=== PATIENT | male | born 1955 ===

== ENCOUNTER 2017-07-28 20:04 | Emergency (ER) | payer MEDICAID, MEDICARE ==
[2017-07-28 20:05] VITALS: BMI 53.4
[2017-07-28 20:27] VITALS: RESP 18; TEMP 98.5
--- NOTE | 2017-07-28 20:42 | ED PDOC ---
Arrival/HPI - General Chief Complaint: Male Genitourinary Time Seen by Provider: 07/28/17 20:10 Historian: Patient - History of Present Illness Narrative History of Present Illness (Text): 07/28/17 20:42 A 61 year old male, whose past medical history includes carcinoid cancer of the digestive tract and chronic renal insufficiency, presents to the emergency department for evaluation of disconnected nephrostomy tube. Patient reports nephrostomy tube was disconnected from drainage. Patient reports this occurred tonight, but appears to be loose about a week ago when it was dressed by performance improvement manager. Patient denies any fever, abdominal pain, hematuria or any other complaints at this time. Symptom Onset: Sudden Symptom Course: Unchanged Activities at Onset: Rest Context: Home Past Medical History - Provider Review Nursing Documentation Reviewed: Yes - Infectious Disease Hx of Infectious Diseases: None - Tetanus Immunization Tetanus Immunization: Unknown - Cardiac Hx Cardiac Disorders: No - Pulmonary Hx Respiratory Disorders: No - Neurological Hx Neurological Disorder: No - HEENT Hx HEENT Disorder: No - Renal Hx Renal Disorder: Yes Other/Comment: HAS UROSTOMY - Endocrine/Metabolic Hx Endocrine Disorders: No - Hematological/Oncological Hx Blood Disorders: Yes Hx Cancer: Yes (Gastric; colon) - Integumentary Hx Dermatological Disorder: No - Musculoskeletal/Rheumatological Hx Musculoskeletal Disorders: No - Gastrointestinal Hx Colostomy: Yes Other/Comment: PEG TUBE - Genitourinary/Gynecological Hx Genitourinary Disorders: Yes Other/Comment: HAS UROSTOMY - Psychiatric Hx Psychophysiologic Disorder: No Hx Substance Use: No - Surgical History Other/Comment: COLOSTOMY, PEG TUBE, UROSTOMY - Suicidal Assessment Feels Threatened In Home Enviroment: No Family/Social History - Physician Review Nursing Documentation Reviewed: Yes Family/Social History: No Known Family HX Smoking Status: Never Smoked Hx Alcohol Use: No Hx Substance Use: No Hx Substance Use Treatment: No Allergies/Home Meds Allergies/Adverse Reactions: Allergies No Known Allergies Allergy (Verified 07/28/17 20:06) Home Medications: Home Meds Medication Instructions Recorded Confirmed Unobtainable 07/28/17 07/28/17 Review of Systems - Physician Review All systems were reviewed & negative as marked: Yes - Review of Systems Constitutional: absent: Fevers Gastrointestinal: absent: Abdominal Pain Genitourinary Male: absent: Hematuria Physical Exam Vital Signs Reviewed: Yes Vital Signs Temp Pulse Resp BP Pulse Ox 07/28/17 20:09 98.5 F 119 H 18 153/102 H 97 Temperature: Afebrile Blood Pressure: Hypertensive Pulse: Tachycardic Respiratory Rate: Normal Appearance: Positive for: Well-Appearing, Non-Toxic, Comfortable Pain Distress: None Mental Status: Positive for: Alert and Oriented X 3 - Systems Exam Head: Present: Atraumatic, Normocephalic Pupils: Present: PERRL Extroacular Muscles: Present: EOMI Conjunctiva: Present: Normal Mouth: Present: Moist Mucous Membranes Neck: Present: Normal Range of Motion Respiratory/Chest: Present: Clear to Auscultation, Good Air Exchange. No: Respiratory Distress, Accessory Muscle Use Cardiovascular: Present: Regular Rate and Rhythm, Normal S1, S2. No: Murmurs Abdomen: Present: Normal Bowel Sounds, Other (nephrostomy tube; catheter with some debris at connection; urine clear and yellow). No: Tenderness, Distention , Peritoneal Signs Back: Present: Normal Inspection Upper Extremity: Present: Normal Inspection. No: Cyanosis, Edema Lower Extremity: Present: Normal Inspection. No: Edema Neurological: Present: GCS=15, CN II-XII Intact, Speech Normal Skin: Present: Warm, Dry, Normal Color. No: Rashes Psychiatric: Present: Alert, Oriented x 3, Normal Insight, Normal Concentration Medical Decision Making ED Course and Treatment: 07/28/17 20:39 Impression: A 61 year old male with disconnected nephrostomy tube. Plan: -- Reassess and disposition Prior Visits: Notes and results from previous visits were reviewed. Patient was last seen in the emergency department on 08/26/16 for evaluation of dizziness and nausea. Progress Notes: Will clean and connect nephrostomy tube. Patient will need follow up with PMD. - Scribe Statement The provider has reviewed the documentation as recorded by the Penelope Chadwick Provider Scribe Attestation: All medical record entries made by the Scribdolly were at my direction and personally dictated by me. I have reviewed the chart and agree that the record accurately reflects my personal performance of the history, physical exam, medical decision making, and the department course for this patient. I have also personally directed, reviewed, and agree with the discharge instructions and disposition. Disposition/Present on Arrival - Present on Arrival Any Indicators Present on Arrival: No History of DVT/PE: No History of Uncontrolled Diabetes: No Urinary Catheter: No History of Decub. Ulcer: No History Surgical Site Infection Following: None - Disposition Have Diagnosis and Disposition been Completed?: Yes Diagnosis: Ureteral obstruction, Colon cancer Disposition: HOME/ ROUTINE Disposition Time: 21:15 Patient Problems: Current Active Problems Problem Status Onset Ureteral obstruction Acute Colon cancer Acute Condition: STABLE Discharge Instructions (ExitCare): Urinary Leg Bag (GEN) Additional Instructions: see your doctor next week Referrals: Camille Bullock MD [Primary Care Provider] - Follow up with primary Forms: [employer] ([place])
--- NOTE | 2017-07-28 20:44 | ED PDOC ---
Arrival/HPI - General Time Seen by Provider: 07/28/17 20:10 Past Medical History - Infectious Disease Hx of Infectious Diseases: None - Tetanus Immunization Tetanus Immunization: Unknown - Cardiac Hx Cardiac Disorders: No - Pulmonary Hx Respiratory Disorders: No - Neurological Hx Neurological Disorder: No - HEENT Hx HEENT Disorder: No - Renal Hx Renal Disorder: Yes Other/Comment: HAS UROSTOMY - Endocrine/Metabolic Hx Endocrine Disorders: No - Hematological/Oncological Hx Blood Disorders: Yes Hx Cancer: Yes (Gastric; colon) - Integumentary Hx Dermatological Disorder: No - Musculoskeletal/Rheumatological Hx Musculoskeletal Disorders: No - Gastrointestinal Hx Colostomy: Yes Other/Comment: PEG TUBE - Genitourinary/Gynecological Hx Genitourinary Disorders: Yes Other/Comment: HAS UROSTOMY - Psychiatric Hx Psychophysiologic Disorder: No Hx Substance Use: No - Surgical History Other/Comment: COLOSTOMY, PEG TUBE, UROSTOMY - Suicidal Assessment Feels Threatened In Home Enviroment: No Family/Social History Smoking Status: Never Smoked Hx Alcohol Use: No Hx Substance Use: No Hx Substance Use Treatment: No Allergies/Home Meds Allergies/Adverse Reactions: Allergies No Known Allergies Allergy (Verified 07/28/17 20:06) Home Medications: Home Meds Medication Instructions Recorded Confirmed Unobtainable 07/28/17 07/28/17 Physical Exam Vital Signs Temp Pulse Resp BP Pulse Ox 07/28/17 20:09 98.5 F 119 H 18 153/102 H 97 Disposition/Present on Arrival - Present on Arrival Any Indicators Present on Arrival: No History of DVT/PE: No History of Uncontrolled Diabetes: No Urinary Catheter: No History of Decub. Ulcer: No History Surgical Site Infection Following: None - Disposition Have Diagnosis and Disposition been Completed?: Yes Diagnosis: Ureteral obstruction, Colon cancer Disposition: HOME/ ROUTINE Disposition Time: 21:15 Patient Plan: Discharge Patient Problems: Current Active Problems Problem Status Onset Colon cancer Acute Ureteral obstruction Acute Condition: STABLE Discharge Instructions (ExitCare): Urinary Leg Bag (GEN) Additional Instructions: see your doctor next week
[2017-07-28 21:07] VITALS: BP 142/88; PULSE 96; O2SAT 98
== END 2017-07-28 21:07 | disposition home or self-care (01) ==
LOC: ED 20:04
DX: C18.9 Malignant neoplasm of colon, unspecified (principal); N13.5 Crossing vessel and stricture of ureter without hydronephrosis; Z93.3 Colostomy status

== ENCOUNTER 2017-07-30 19:35 | Emergency (ER) | payer MEDICARE ==
[2017-07-30 19:36] VITALS: BMI 53.4
[2017-07-30 19:50] VITALS: BP 157/92; PULSE 107; RESP 20; TEMP 98; O2SAT 97
--- NOTE | 2017-07-30 19:56 | ED PDOC ---
Arrival/HPI - General Chief Complaint: Anxiety Time Seen by Provider: 07/30/17 19:48 Historian: Patient - History of Present Illness Narrative History of Present Illness (Text): 07/30/17 19:53 61yo male with PMHx of Colon CA present with complaint of insomnia for 4days. Notes that he was just discharged from [facility] 4days ago after spending 44days there. He started having insomnia when he came home. He is not on medication for insomnia. He denies chest pain, headache, dizziness, focal weakness, abdominal pain, any other complaint. Past Medical History - Provider Review Nursing Documentation Reviewed: Yes - Infectious Disease Hx of Infectious Diseases: None - Tetanus Immunization Tetanus Immunization: Unknown - Cardiac Hx Cardiac Disorders: No - Pulmonary Hx Respiratory Disorders: No - Neurological Hx Neurological Disorder: No - HEENT Hx HEENT Disorder: No - Renal Hx Renal Disorder: Yes Other/Comment: HAS UROSTOMY - Endocrine/Metabolic Hx Endocrine Disorders: No - Hematological/Oncological Hx Cancer: (Gastric; colon) - Integumentary Hx Dermatological Disorder: No - Musculoskeletal/Rheumatological Hx Musculoskeletal Disorders: No - Gastrointestinal Hx Colostomy: Yes Other/Comment: PEG TUBE - Genitourinary/Gynecological Hx Genitourinary Disorders: Yes Other/Comment: HAS UROSTOMY - Psychiatric Hx Psychophysiologic Disorder: No Hx Substance Use: No - Surgical History Other/Comment: COLOSTOMY, PEG TUBE, UROSTOMY - Suicidal Assessment Feels Threatened In Home Enviroment: No Family/Social History - Physician Review Nursing Documentation Reviewed: Yes Family/Social History: Unknown Family HX Smoking Status: no Hx Alcohol Use: No Hx Substance Use: No Hx Substance Use Treatment: No Allergies/Home Meds Allergies/Adverse Reactions: Allergies No Known Allergies Allergy (Verified 07/28/17 20:06) Home Medications: Home Meds Medication Instructions Recorded Confirmed Fentanyl 75 mcg TD .3XWEEK 07/30/17 07/30/17 Review of Systems - Physician Review All systems were reviewed & negative as marked: Yes - Review of Systems Constitutional: Normal Eyes: Normal ENT: Normal Respiratory: Normal Cardiovascular: Normal Gastrointestinal: Normal Genitourinary Male: Normal Musculoskeletal: Normal Skin: Normal Neurological: Normal Endocrine: Normal Hemo/Lymphatic: Normal Psychiatric: Anxiety, Other (Insomnia) Physical Exam Vital Signs Reviewed: Yes Vital Signs Temp Pulse Resp BP Pulse Ox 11/25/17 19:48 98.0 F 107 H 20 157/92 H 97 Temperature: Afebrile Blood Pressure: Normal Pulse: Regular Respiratory Rate: Normal Appearance: Positive for: Well-Appearing, Non-Toxic, Comfortable Pain Distress: None Mental Status: Positive for: Alert and Oriented X 3 - Systems Exam Head: Present: Atraumatic, Normocephalic Pupils: Present: PERRL Extroacular Muscles: Present: EOMI Conjunctiva: Present: Normal Mouth: Present: Moist Mucous Membranes Neck: Present: Normal Range of Motion Respiratory/Chest: Present: Clear to Auscultation, Good Air Exchange. No: Respiratory Distress, Accessory Muscle Use Cardiovascular: Present: Regular Rate and Rhythm, Normal S1, S2. No: Murmurs Abdomen: Present: Normal Bowel Sounds. No: Tenderness, Distention, Peritoneal Signs Back: Present: Normal Inspection Upper Extremity: Present: Normal Inspection. No: Cyanosis, Edema Lower Extremity: Present: Normal Inspection. No: Edema Neurological: Present: GCS=15, CN II-XII Intact, Speech Normal Skin: Present: Warm, Dry, Normal Color. No: Rashes Psychiatric: Present: Alert, Oriented x 3, Normal Insight, Normal Concentration Disposition/Present on Arrival - Present on Arrival Any Indicators Present on Arrival: No History of DVT/PE: No History of Uncontrolled Diabetes: No Urinary Catheter: No History of Decub. Ulcer: No History Surgical Site Infection Following: None - Disposition Have Diagnosis and Disposition been Completed?: Yes Diagnosis: Insomnia Disposition: HOME/ ROUTINE Disposition Time: 20:00 Patient Plan: Discharge Condition: STABLE Discharge Instructions (ExitCare): Insomnia (ED) Additional Instructions: Follow up with your doctor Return to ED for any new or worsening symptoms Prescriptions: Lorazepam [Ativan] 0.5 mg PO DAILY #3 tab Referrals: [facility] at [facility] [Outside] - Follow up with primary
== END 2017-07-30 20:07 | disposition home or self-care (01) ==
LOC: ED 19:35
DX: G47.00 Insomnia, unspecified (principal); Z85.038 Personal history of other malignant neoplasm of large intestine

== ENCOUNTER 2017-11-27 17:10 | Inpatient (IN) | payer MEDICARE, MEDICAID, OTHER ==
--- NOTE | 2017-11-27 17:55 | ED PDOC ---
Arrival/HPI - General Chief Complaint: Male Genitourinary Time Seen by Provider: 11/27/17 17:24 Historian: Patient - History of Present Illness Narrative History of Present Illness (Text): 11/27/17 17:52 62 year old male, whose history includes carcinoid cancer of the digestive tract , chronic renal insufficiency ,and ileostomy, presents to the Emergency department complaining of no flow in his nephrostomy tube for 2 days. Patient complains of mild abdominal pain. Patient denies any fever, chills, chest pain, shortness of breath, nausea, vomiting, diarrhea, back pain, neck pain, headache , dizziness, or any other complaints. Patient's care is primarily at [facility]. Time/Duration: < week (2 days ago) Symptom Onset: Sudden Symptom Course: Unchanged Context: Home Past Medical History - Provider Review Nursing Documentation Reviewed: Yes - Infectious Disease Hx of Infectious Diseases: None - Tetanus Immunization Tetanus Immunization: Unknown - Cardiac Hx Cardiac Disorders: No - Pulmonary Hx Respiratory Disorders: No - Neurological Hx Neurological Disorder: No - HEENT Hx HEENT Disorder: No - Renal Hx Renal Disorder: Yes Other/Comment: HAS UROSTOMY - Endocrine/Metabolic Hx Endocrine Disorders: No - Hematological/Oncological Hx Cancer: (Gastric; colon) - Integumentary Hx Dermatological Disorder: No - Musculoskeletal/Rheumatological Hx Musculoskeletal Disorders: No - Gastrointestinal Hx Colostomy: Yes Other/Comment: PEG TUBE - Genitourinary/Gynecological Hx Genitourinary Disorders: Yes Other/Comment: HAS UROSTOMY - Psychiatric Hx Psychophysiologic Disorder: No Hx Substance Use: No - Surgical History Other/Comment: COLOSTOMY, PEG TUBE, UROSTOMY - Suicidal Assessment Feels Threatened In Home Enviroment: No Family/Social History - Physician Review Nursing Documentation Reviewed: Yes Family/Social History: Unknown Family HX Smoking Status: Unknown If Ever Smoked Hx Alcohol Use: No Hx Substance Use: No Hx Substance Use Treatment: No Allergies/Home Meds Allergies/Adverse Reactions: Allergies morphine Allergy (Verified 11/27/17 17:20) ANAPHYLAXIS Home Medications: Home Meds Medication Instructions Recorded Confirmed No Known Home Med 11/27/17 11/27/17 Review of Systems - Physician Review All systems were reviewed & negative as marked: Yes - Review of Systems Constitutional: absent: Fevers, Night Sweats Respiratory: absent: SOB Cardiovascular: absent: Chest Pain Gastrointestinal: Abdominal Pain. absent: Constipation, Diarrhea, Nausea Genitourinary Male: Urinary Output Changes (nephrostomy tube has no flow) Musculoskeletal: absent: Back Pain, Neck Pain Neurological: absent: Headache, Dizziness Physical Exam Vital Signs Reviewed: Yes Vital Signs Temp Pulse Resp Pulse Ox 11/27/17 17:51 98.6 F 92 H 18 99 Temperature: Afebrile Pulse: Tachycardic Respiratory Rate: Normal Appearance: Positive for: Cachectic (cachectic/emaciated appearing) Pain Distress: None Mental Status: Positive for: Alert and Oriented X 3 - Systems Exam Head: Present: Atraumatic, Normocephalic Pupils: Present: PERRL Extroacular Muscles: Present: EOMI Conjunctiva: Present: Normal Mouth: Present: Moist Mucous Membranes Neck: Present: Normal Range of Motion Respiratory/Chest: Present: Clear to Auscultation, Good Air Exchange. No: Respiratory Distress, Accessory Muscle Use Cardiovascular: Present: Regular Rate and Rhythm, Normal S1, S2. No: Murmurs Abdomen: Present: Normal Bowel Sounds, Other (PEG tube). No: Tenderness, Distention, Peritoneal Signs Genitourinary Male: Present: Other (nephrostomy tube on the right) Back: Present: Normal Inspection Upper Extremity: Present: Normal Inspection. No: Cyanosis, Edema Lower Extremity: Present: Normal Inspection. No: Edema Neurological: Present: GCS=15, CN II-XII Intact, Speech Normal Skin: Present: Warm, Dry, Normal Color. No: Rashes Psychiatric: Present: Alert, Oriented x 3, Normal Insight, Normal Concentration Medical Decision Making ED Course and Treatment: 11/27/17 17:58 Impression: 62 year old male presents to the Emergency department complaining of no flow through his nephrostomy tube. Plan: -- Reassess and disposition Prior Visits: Notes and results from previous visits were reviewed. Patient was last seen in the emergency department on 07/28/17, was diagnosed with urethral obstruction and was discharged home. Progress Notes: - Lab Interpretations Lab Results: 11/27/17 18:32 11/27/17 18:32 Lab Results 11/27/17 19:55: Urine Color Light yellow, Urine Appearance Cloudy, Urine pH >= 9.0, Ur Specific [place] <= 1.005, Urine Protein >=300 H, Urine Glucose (UA) Negative, Urine Ketones Negative, Urine Blood Small H, Urine Nitrate Negative, Urine Bilirubin Negative, Urine Urobilinogen 0.2, Ur Leukocyte Esterase Trace H , Urine RBC Pending, Urine WBC Pending 11/27/17 18:32: Sodium 138, Chloride 98, Potassium 4.0, Carbon Dioxide 33, Anion Gap 12, BUN 42 H, Creatinine 1.6 H, Est GFR ( Amer) 54, Est GFR ( Non-Af Amer) 44, Random Glucose 142 H, Calcium 9.9, Total Bilirubin 2.2 H, AST 54, ALT 41, Alkaline Phosphatase 349 H, Total Protein 6.9, Albumin 3.2, Globulin 3.7, Albumin/Globulin Ratio 0.9 L 11/27/17 18:32: pO2 38, VBG pH 7.41, VBG pCO2 55.0, VBG HCO3 34.9 H, VBG Total CO2 36.6 H, VBG O2 Sat (Calc) 88.2 H, VBG Base Excess 8.4 H, VBG Potassium 4.0, Sodium 137.0, Chloride 102.0, Glucose 142 H, Lactate 1.8, FiO2 21.0, Venous Blood Potassium 4.0 11/27/17 18:32: PT 13.1 H, INR 1.15 H 11/27/17 18:32: WBC 28.3 H* D, RBC 3.09 L, Hgb 9.7 L, Hct 29.0 L, MCV 93.9, MCH 31.4, MCHC 33.4, RDW 18.1 H, Plt Count 278, MPV 11.1 H, Gran % 88.7 H, Lymph % ( Auto) 5.3 L, [place] % (Auto) 5.9, Eos % (Auto) 0.0 L, Baso % (Auto) 0.1, Gran # 25.12 H, Lymph # (Auto) 1.5, [place] # (Auto) 1.7 H, Eos # (Auto) 0.0, Baso # (Auto ) 0.02 - RAD Interpretation Narrative RAD Interpretations (Text): 11/27/2017 20:27:00 CT Scan ABD PELVIS W/O PO OR IV CONT FINDINGS: LIMITATIONS: Streak artifact from the patient's arms. LOWER THORAX: No infiltrate seen in the lung bases. ABDOMEN: LIVER: Air in the biliary tree/pneumobilia, involving the intrahepatic bile ducts. GALLBLADDER AND BILE DUCTS: Pneumobilia. This may be postsurgical in etiology, such as from a previous sphincterotomy. Recommend correlation with surgical history and the clinical presentation. Gallbladder is not seen, and may be contracted or surgically absent. PANCREAS: No CT evidence of acute pancreatitis. SPLEEN: No acute abnormality of the spleen identified. ADRENALS: No acute abnormality of the adrenal glands identified. KIDNEYS AND URETERS: Moderate right hydroureter, involving the proximal and mid right ureter, without significant right hydronephrosis. Right distal ureter is not well seen. No causative obstructing stones identified. Right-sided percutaneous nephrostomy in place. Tiny, nonobstructing right renal stone. Duplicated collecting system of the left kidney. STOMACH AND BOWEL: Evidence of previous subtotal colectomy. Rectosigmoid stump in the posterior pelvis. Ileostomy in the left anterior pelvic wall. Otherwise, no significant abnormality of the bowel seen. No evidence of significant bowel obstruction. APPENDIX: Surgically removed. PELVIS: BLADDER: Infiltration of the fat around the bladder. Bladder wall appears moderately, diffusely thickened. Findings could be signs of cystitis. REPRODUCTIVE: No acute abnormality of the reproductive organs is seen. SUBPERITONEAL SPACE: Small amount of presacral fluid. ABDOMEN and PELVIS: INTRAPERITONEAL SPACE: No evidence of free intraperitoneal air or fluid. BONES/JOINTS: No acute fractures or other acute bony abnormality noted. SOFT TISSUES: No acute abnormality of the visualized soft tissues is seen. VASCULATURE: No evidence of abdominal aortic aneurysm. No evidence of periaortic hemorrhage. LYMPH NODES: No evidence of diffuse lymphadenopathy. IMPRESSION: - Bladder findings which could be due to cystitis. - Moderate right hydroureter, with no obstructing stones seen, of uncertain etiology, but could be due to a right-sided urinary tract infection. - Small amount of presacral fluid. - Otherwise, no evidence of significant acute process. - Right nephrostomy in place, with no significant hydronephrosis. - Pneumobilia, which may be post operative in etiology. - See above for remaining findings. Radiology Orders: 11/27/17 17:58 ABD & PELVIS W/O PO OR IV CONT [CT] Stat - Medication Orders Current Medication Orders: Vancomycin HCl (Vancomycin 1gm) 1 gm in 250 mls @ 167 mls/hr IVPB STAT STA PRN Reason: Protocol Stop: 11/27/17 21:46 Oxycodone HCl (Oxycontin Extended Release Tab) 30 mg PO Q12 TAMMY Discontinued Medications Sodium Chloride (Sodium Chloride 0.9%) 1,000 mls @ 999 mls/hr IV .Q1H1M STA Stop: 11/27/17 19:00 Last Admin: 11/27/17 18:30 Dose: 999 mls/hr eMAR Start Stop Document 11/27/17 18:30 GMD (Rec: 11/27/17 18:30 GMD [id number]) Intravenous Solution Start Date 11/27/17 Start Time 18:30 End Date 11/27/17 End time 19:30 Total Infusion Time 60 Piperacillin Sod/Tazobactam Sod (Zosyn 3.375 In Ns 100ml) 100 mls @ 200 mls/hr IVPB STAT STA PRN Reason: Protocol Stop: 11/27/17 20:46 Last Admin: 11/27/17 20:31 Dose: 200 mls/hr eMAR Start Stop Document 11/27/17 20:31 GMD (Rec: 11/27/17 20:31 GMD [id number]) Intravenous Solution Start Date 11/27/17 Start Time 20:31 End Date 11/27/17 End time 21:01 Total Infusion Time 30 - PA / FONDANT MACHINE OPERATOR / Resident Statement MD/DO has reviewed & agrees with the documentation as recorded. - Scribe Statement The provider has reviewed the documentation as recorded by the Penelope Patton Provider Scribe Attestation: All medical record entries made by the Scribe were at my direction and personally dictated by me. I have reviewed the chart and agree that the record accurately reflects my personal performance of the history, physical exam, medical decision making, and the department course for this patient. I have also personally directed, reviewed, and agree with the discharge instructions and disposition. Disposition/Present on Arrival - Present on Arrival Any Indicators Present on Arrival: No History of DVT/PE: No History of Uncontrolled Diabetes: No Urinary Catheter: No History of Decub. Ulcer: No History Surgical Site Infection Following: None - Disposition Have Diagnosis and Disposition been Completed?: Yes Diagnosis: Leukocytosis, UTI (urinary tract infection), Dehydration, Acute kidney injury, Metastatic cancer Disposition: HOSPITALIZED Disposition Time: 20:33 Patient Plan: Admission Patient Problems: Current Active Problems Problem Status Onset Leukocytosis Acute UTI (urinary tract infection) Acute Dehydration Acute Acute kidney injury Acute Metastatic cancer Acute Condition: FAIR
[2017-11-27] MEDS ORDERED: Sodium Chloride 0.9% 1,000 ML IV STA ×2 (18:00→22:07)
[2017-11-27 18:54] LABS: BASO # 0.02 K/mm3 (0.0-2.0); BASO % 0.1 % (0.0-3.0); GRAN # 25.12 (1.4-6.5); GRAN % 88.7 % (50.0-68.0); HEMOGLOBIN 9.7 g/dL (14.0-18.0); LYMPH # 1.5 (1.2-3.4); LYMPH % 5.3 % (22.0-35.0); MEAN CELL VOLUME 93.9 fl (80.0-105.0); MEAN CORPUSCULAR HEMOGLOBIN 31.4 pg (25.0-35.0); MEAN CORPUSCULAR HGB CONC 33.4 g/dl (31.0-37.0); MEAN PLATELET VOLUME 11.1 fl (7.0-11.0); MONO # 1.7 (0.1-0.6); MONO % 5.9 % (1.0-6.0); PLATELET COUNT 278 10^3/uL (120.0-450.0); RBC 3.09 10^6/uL (3.5-6.1); RED CELL DISTRIBUTION WIDTH 18.1 % (11.5-14.5)
[2017-11-27 18:57] LABS: ALB/GLOB RATIO 0.9 (1.1-1.8); ALBUMIN 3.2 g/dL (3.0-4.8); CALCIUM 9.9 mg/dL (8.4-10.5)
[2017-11-27 18:58] LABS: WHITE BLOOD COUNT 28.3 10^3/ul (4.5-11.0)
[2017-11-27 19:07] LABS: INR 1.15 (0.93-1.08); PROTHROMBIN TIME 13.1 SECONDS (9.4-12.5)
[2017-11-27 19:16] LABS: VENOUS BLOOD GAS BASE EXCESS 8.4 mmol/L (0.0-2.0); VENOUS BLOOD GAS PO2 38 mm/Hg (30-55); VENOUS BLOOD PH 7.41 (7.32-7.43)
[2017-11-27] MEDS ORDERED: Piperacillin/Tazobact 3.375 gm 100 ML IVPB STA (20:17)
[2017-11-27] MEDS ORDERED: Vancomycin 1gm in NS 250ml 1 GM/250 ML BAG IVPB STA (20:17)
--- NOTE | 2017-11-27 20:27 | CT ---
EXAM: CT Abdomen and Pelvis Without Intravenous Contrast EXAM DATE/TIME: 11/27/2017 5:58 PM CLINICAL HISTORY: 62 years old, male; Pain; Abdominal pain; Acute; Additional info: Nephrostomy tube (right side) blocked since tuesday TECHNIQUE: Axial computed tomography images of the abdomen and pelvis without intravenous contrast. All CT scans at this facility use one or more dose reduction techniques, viz.: automated exposure control; ma/kV adjustment per patient size (including targeted exams where dose is matched to indication; i.e. head); or iterative reconstruction technique. Coronal and sagittal reformatted images were created and reviewed. COMPARISON: No relevant prior studies available. FINDINGS: LIMITATIONS: Streak artifact from the patient's arms. LOWER THORAX: No infiltrate seen in the lung bases. ABDOMEN: LIVER: Air in the biliary tree/pneumobilia, involving the intrahepatic bile ducts. GALLBLADDER AND BILE DUCTS: Pneumobilia. This may be postsurgical in etiology, such as from a previous sphincterotomy. Recommend correlation with surgical history and the clinical presentation. Gallbladder is not seen, and may be contracted or surgically absent. PANCREAS: No CT evidence of acute pancreatitis. SPLEEN: No acute abnormality of the spleen identified. ADRENALS: No acute abnormality of the adrenal glands identified. KIDNEYS AND URETERS: Moderate right hydroureter, involving the proximal and mid right ureter, without significant right hydronephrosis. Right distal ureter is not well seen. No causative obstructing stones identified. Right-sided percutaneous nephrostomy in place. Tiny, nonobstructing right renal stone. Duplicated collecting system of the left kidney. STOMACH AND BOWEL: Evidence of previous subtotal colectomy. Rectosigmoid stump in the posterior pelvis. Ileostomy in the left anterior pelvic wall. Otherwise, no significant abnormality of the bowel seen. No evidence of significant bowel obstruction. APPENDIX: Surgically removed. PELVIS: BLADDER: Infiltration of the fat around the bladder. Bladder wall appears moderately, diffusely thickened. Findings could be signs of cystitis. REPRODUCTIVE: No acute abnormality of the reproductive organs is seen. SUBPERITONEAL SPACE: Small amount of presacral fluid. ABDOMEN and PELVIS: INTRAPERITONEAL SPACE: No evidence of free intraperitoneal air or fluid. BONES/JOINTS: No acute fractures or other acute bony abnormality noted. SOFT TISSUES: No acute abnormality of the visualized soft tissues is seen. VASCULATURE: No evidence of abdominal aortic aneurysm. No evidence of periaortic hemorrhage. LYMPH NODES: No evidence of diffuse lymphadenopathy. IMPRESSION: - Bladder findings which could be due to cystitis. - Moderate right hydroureter, with no obstructing stones seen, of uncertain etiology, but could be due to a right-sided urinary tract infection. - Small amount of presacral fluid. - Otherwise, no evidence of significant acute process. - Right nephrostomy in place, with no significant hydronephrosis. - Pneumobilia, which may be post operative in etiology. - See above for remaining findings.
[2017-11-27 20:32] LABS: PH,URINE >=9.0 (4.7-8.0); URINE BILIRUBIN NEGATIVE (NEGATIVE); URINE BLOOD SMALL (NEGATIVE); URINE GLUCOSE (UA) NEGATIVE (NEGATIVE); URINE LEUKOCYTE ESTERASE TRACE Leu/uL (NEGATIVE); URINE PROTEIN >=300 mg/dL (<30 mg/dL); URINE UROBILINOGEN 0.2 E.U./dL (<1 E.U./dL)
[2017-11-27 20:34] LABS: URINE APPEARANCE CLOUDY (CLEAR); URINE COLOR LIGHT YELLOW (YELLOW)
[2017-11-27 21:05] LABS: BAND 8 % (0-2); LYMPHOCYTE 11 % (22.0-35.0); MONOCYTE 2 % (1.0-6.0); NEUTROPHIL 79 % (50.0-70.0); PLATELET ESTIMATE NORMAL (NORMAL)
[2017-11-27 21:06] LABS: URINE EPITHELIAL CELLS 0 - 2 /hpf (0-5); URINE WBC 0 - 2 /hpf (0-6)
[2017-11-27 21:07] LABS: URINE AMORPHOUS SEDIMENT MODERATE; URINE BACTERIA LARGE (NEG)
[2017-11-27 21:24] VITALS: BMI 19.5
--- NOTE | 2017-11-27 21:46 | CP.PCM.HP ---
Addendum entered and electronically signed by Puneet Mackenzie DO 11/28/17 02:21 : CT abdomen pelvis showed possible cystitis, Moderate right hydroureter, with no obstructing stones, Small amount of presacral fluid, no evidence of significant acute process, Right nephrostomy in place, with no significant hydronephrosis, Pneumobilia, which may be post operative in etiology. Original Note: <Puneet Mackenzie - Last Filed: 11/28/17 01:07> History of Present Illness - History of Present Illness History of Present Illness: CC: Nephrostomy tube malfunction Pt is a 62 yo M with PMH of carcinoid CA of GI tract, colectomy with ileostomy ( 2 yrs), nephrostomy (1 yr) 2/2 renal insufficiency, and gastronomy tube (3 months) presents to [facility] [place] due to right malfunctioning nephrostomy tube. Pt states that since Tuesday morning his nephrostomy has failed to output urine. Patient is able to make some urine normally, but most of his urine is per nephrostomy tube. In the days leading up to the malfunction, the patient stated that urine in nephrostomy tube was yellowish-red and urine per penis was orange with dysuria. Pt is also complaining of crampy abdominal pain around his ileostomy. Pt states that he normally has pain in that location and takes pain medications at home. However, pain has increased over the last day. Pt requires daily TPN through right sided PICC line, he also receives his chemotherapy through the same line. Pt states that he gets very bloated with PO intake. Pt is AO x3, but is a poor historian as to the reasons he had several tubes placed. Of note, patient states that all of his doctors and chemotherapy are at [facility]. Pt denies CP, SOB, n/v/d, fever, chills, [place], or dizziness. PMH: carcinoid CA of GI tract, renal insufficiency Surg: Colectomy with ileostomy, nephrostomy (right), gastronomy tube All: Morphine (rash) FHx: Non-contributory SH: Denied EtOH, tobacco, and illicit drug use Oncologist: Dr. Camille Bullock Present on Admission - Present on Admission Any Indicators Present on Admission: No Review of Systems - Review of Systems Review of Systems: 12 point ROS reviewed and is negative other than what is stated in HPI. Past Patient History - Infectious Disease Hx of Infectious Diseases: None - Tetanus Immunizations Tetanus Immunization: Unknown - Past Social History Smoking Status: Former Smoker - CARDIAC Hx Cardiac Disorders: No - PULMONARY Hx Respiratory Disorders: No - NEUROLOGICAL Hx Neurological Disorder: No - HEENT Hx HEENT Problems: No - RENAL Hx Chronic Kidney Disease: Yes Other/Comment: HAS UROSTOMY - ENDOCRINE/METABOLIC Hx Endocrine Disorders: No - HEMATOLOGICAL/ONCOLOGICAL Hx Cancer: (Gastric; colon) - INTEGUMENTARY Hx Dermatological Problems: No - MUSCULOSKELETAL/RHEUMATOLOGICAL Hx Falls: No - GASTROINTESTINAL Hx Colostomy: Yes Hx Ileostomy: Yes Other/Comment: PEG TUBE - GENITOURINARY/GYNECOLOGICAL Hx Genitourinary Disorders: Yes Other/Comment: HAS UROSTOMY - PSYCHIATRIC Hx Psychophysiologic Disorder: No - SURGICAL HISTORY Other/Comment: COLOSTOMY, PEG TUBE, UROSTOMY Meds Allergies/Adverse Reactions: Allergies Allergy/AdvReac Type Severity Reaction Status Date / Time morphine Allergy ANAPHYLAXIS Verified 11/27/17 17:20 Physical Exam - Constitutional Appears: No Acute Distress, Cachectic - Head Exam Head Exam: NORMAL INSPECTION - Eye Exam Eye Exam: Normal appearance - ENT Exam ENT Exam: Mucous Membranes Dry - Neck Exam Neck exam: Positive for: Normal Inspection - Respiratory Exam Respiratory Exam: Clear to Auscultation Bilateral. absent: Rales, Rhonchi, Wheezes - Cardiovascular Exam Cardiovascular Exam: Tachycardia, +S1, +S2. absent: Diastolic murmur, Gallop, Rubs, Systolic Murmur - GI/Abdominal Exam GI & Abdominal Exam: absent: Distended, Guarding, Rebound Additional comments: ileostomy and gastronomy tube in place with no surround erythema and bilious fluid per bag. Palpalbe tenderness around ileostomy - Back Exam Additional comments: right nephrostomy tube in place with no output. No surrounding erythema or tenderness at tube insertion site. - Neurological Exam Neurological exam: Alert, CN II-XII Intact, Oriented x3 - Psychiatric Exam Psychiatric exam: Normal Affect, Normal Mood - Skin Skin Exam: Dry, Intact, Pallor, Warm Results - Vital Signs Recent Vital Signs: Last Vital Signs Temp 98.6 F 11/27/17 21:16 Pulse 75 11/27/17 21:21 Resp 18 11/27/17 21:21 BP 88/52 L 11/27/17 21:21 Pulse Ox 100 11/27/17 21:21 - Labs Result Diagrams: 11/27/17 18:32 11/27/17 18:32 Assessment & Plan - Assessment and Plan (Free Text) Assessment: 62 yo M with PMH of carcinoid CA and renal insufficiency admitted for malfunctioning nephrostomy tube. Plan: 1. Sepsis - Tachycardiac, hypotensive - WBC 28.3 - Lactate 1.8 on VBG, Plasma Lactate 1.3 - UA shows trace leuk est - 3 L NS received in ED, followed by NS at 100 cc/hr - CXR, procal, ekg, blood and urine cultures ordered - One dose vanco in ED - Zosyn renal dose ordred - ID consulted 2. Malfunctioning Nephrostomy tube - Urology consulted - IR consulted 3. PRANAV - UA shows large proteinuria - BUN/Cr consistent with prerenal nephropathy - Nephrology consulted 4. Anemia, normocytic - Likely 2/2 chronic disease - Fe, TIBC, ferritin, folate, b12, retic, erythropoetin ordered - Peripheral smear ordered - Type and crossmatched 2 units 5. H/o carcinoid CA with ileostomy and g-tube - GI consulted - IR consulted GI/DVT PPx - Protonix - SCDs Pt discussed in detail with Dr. Wagner. Abad Mackenzie, PGY1 <Sergio Wagner U - Last Filed: 11/28/17 22:00> Results - Vital Signs Recent Vital Signs: Last Vital Signs Temp 98.1 F 11/28/17 17:35 Pulse 65 11/28/17 17:35 Resp 18 11/28/17 17:35 BP 107/71 11/28/17 17:35 Pulse Ox 98 11/28/17 17:35 - Labs Result Diagrams: 11/28/17 06:20 11/28/17 06:20 Labs: Laboratory Results - last 24 hr 11/27/17 11/27/17 11/27/17 22:50 22:50 22:50 WBC RBC Hgb Hct MCV MCH MCHC RDW Plt Count MPV Sodium Potassium Chloride Carbon Dioxide Anion Gap BUN Creatinine Est GFR ( Amer) Est GFR (Non-Af Amer) Random Glucose Lactic Acid Calcium Phosphorus Magnesium Iron 10 L TIBC 206 L % Saturation 5 L Ferritin 577.0 Total Bilirubin Direct Bilirubin AST ALT Alkaline Phosphatase Total Protein Albumin Globulin Albumin/Globulin Ratio Vitamin B12 881 Folate > 20.0 Procalcitonin Blood Type O POSITIVE Blood Type Confirm Antibody Screen Negative Crossmatch See Detail BBK History Checked No verified bt 11/27/17 11/27/17 11/28/17 22:50 23:30 06:20 WBC 23.3 H RBC 2.70 L Hgb 8.3 L Hct 25.1 L MCV 93.0 MCH 30.7 MCHC 33.1 RDW 18.1 H Plt Count 247 MPV 10.8 Sodium Potassium Chloride Carbon Dioxide Anion Gap BUN Creatinine Est GFR ( Amer) Est GFR (Non-Af Amer) Random Glucose Lactic Acid 1.3 Calcium Phosphorus Magnesium Iron TIBC % Saturation Ferritin Total Bilirubin Direct Bilirubin AST ALT Alkaline Phosphatase Total Protein Albumin Globulin Albumin/Globulin Ratio Vitamin B12 Folate Procalcitonin Blood Type Blood Type Confirm O POSITIVE Antibody Screen Crossmatch BBK History Checked 11/28/17 11/28/17 11/28/17 06:20 06:20 07:45 WBC RBC Hgb Hct MCV MCH MCHC RDW Plt Count MPV Sodium 138 Potassium 3.4 L Chloride 102 Carbon Dioxide 30 Anion Gap 9 L BUN 38 H Creatinine 1.4 Est GFR ( Amer) > 60 Est GFR (Non-Af Amer) 52 Random Glucose 100 Lactic Acid Calcium 9.1 Phosphorus 3.1 Magnesium 2.2 Iron TIBC % Saturation Ferritin Total Bilirubin 1.8 H 1.8 H Direct Bilirubin 1.5 H AST 47 48 ALT 35 32 Alkaline Phosphatase 340 H 334 H Total Protein 5.7 L 5.8 Albumin 2.5 L 2.5 L Globulin 3.2 3.3 Albumin/Globulin Ratio 0.8 L 0.8 L Vitamin B12 Folate Procalcitonin 12.45 H Blood Type Blood Type Confirm Antibody Screen Crossmatch BBK History Checked Assessment & Plan - Assessment and Plan (Free Text) Plan: ASSESMENT & PLAN 1. Right nephrostomy tube malfunction with occlusion and obstruction. 2. Tachycardia. 3. Asymptomatic hypotension. 4. History of carcinoid tumor of the gastrointestinal tract. 5. Status post ileostomy, colostomy. 6. Status post gastrostomy. 7. Status post right-sided percutaneous nephrostomy. 8. Leukocytosis with granulocytosis and bandemia. 9. Questionable sepsis. 10. Persistent leukocytosis with granulocytosis. 11. Normocytic anemia with decreasing hemoglobin and hematocrit. 12. Hyperbilirubinemia. 13. Protein malnutrition and hypoalbuminemia. 14. Hyperglycemia. 15. Hypokalemia. 16. Acute kidney injury with underlying chronic kidney disease, stage 3. 17. Proteinuria, hematuria, pyuria, bacteriuria. 18. O+ blood type. 19. Pneumobilia. 20. Non-visualized gallbladder. 21. Moderate right hydroureter involving the proximal and mid right ureter without significant right hydronephrosis. 22. Non-visualized right distal ureter. 23. Right-sided percutaneous nephrostomy. 24. Non-obstructing right-sided nephrolithiasis. 25. Left renal duplicated collecting system. 26. Subtotal colectomy. 27. Ileostomy of the left anterior abdominal wall. 28. Appendectomy. 29. Questionable cystitis with moderately and diffusely thickened urinary bladder wall. 30. Deconditioning. 31. Cachexia. 32. Status post chemotherapy treatment at [facility]. 33. Right upper chest Port-A-Cath placement. 34. Gastrostomy tube placement. 35. Possible cystitis. 36. History of colectomy, ileostomy, history of nephrostomy, history of gastrostomy, history of chronic kidney disease, history of chemotherapy treatment done, history of gastrostomy tube placement. 37. Hypotension. 38. Right percutaneous nephrostomy malfunction. 39. Acute kidney injury with proteinuria. 40. Normocytic iron-deficiency anemia PLAN: PER ORDERS.
[2017-11-27] MEDS ORDERED: oxyCODONE 20 mg ER Tab (oxyCONTIN) PO SCH (22:00)
[2017-11-27] MEDS ORDERED: oxyCODONE 10 mg ER Tab (oxyCONTIN) PO SCH (22:00)
[2017-11-27] MEDS ORDERED: Sodium Chloride 0.9% 2,000 ML IV STA (22:07)
[2017-11-27] MEDS ORDERED: Sodium Chloride 0.9% 1,000 ML IV SCH (22:30)
[2017-11-27] MEDS: HYDROmorphone 0.5 mg/0.5 ml ISec IVP PRN (22:56)
[2017-11-27 23:25] LABS: TOTAL IRON BINDING CAPACITY 206 ug/dL (261-462)
[2017-11-27 23:26] LABS: IRON 10 ug/dL (45-180)
[2017-11-27 23:29] LABS: % IRON SATURATION 5 % (20-55)
[2017-11-27] MEDS ORDERED: Iohexol 240 (50 ml) ONE (23:47)
[2017-11-28 00:13] LABS: BILIRUBIN,DIRECT 1.7 mg/dL (0.0-0.4)
[2017-11-28] MEDS ORDERED: oxyCODONE 10 mg ER Tab (oxyCONTIN) PO SCH (01:23)
[2017-11-28] MEDS: HYDROmorphone 0.5 mg/0.5 ml ISec IVP PRN ×3 (04:59→21:41)
[2017-11-28] MEDS ORDERED: Piperacillin/Tazobact 2.25gm 2.25 GM/100 ML BAG IVPB SCH (06:00)
[2017-11-28] MEDS: Meropenem IV 1 gm in NS 50 ML IVPB SCH ×2 (06:35→21:26)
[2017-11-28 06:37] LABS: HEMOGLOBIN 8.3 g/dL (14.0-18.0); MEAN CORPUSCULAR HEMOGLOBIN 30.7 pg (25.0-35.0); MEAN CORPUSCULAR HGB CONC 33.1 g/dl (31.0-37.0); MEAN PLATELET VOLUME 10.8 fl (7.0-11.0); RBC 2.7 10^6/uL (3.5-6.1); RED CELL DISTRIBUTION WIDTH 18.1 % (11.5-14.5); WHITE BLOOD COUNT 23.3 10^3/ul (4.5-11.0)
[2017-11-28 07:03] LABS: ALB/GLOB RATIO 0.8 (1.1-1.8); ALBUMIN 2.5 g/dL (3.0-4.8); ALT/SGPT 35 U/L (7-56); AST/SGOT 47 U/L (17-59); BLOOD UREA NITROGEN 38 mg/dL (7-21); CALCIUM 9.1 mg/dL (8.4-10.5); GFR AFRICAN-AMERICAN > 60; GFR NON-AFRICAN AMERICAN 52
[2017-11-28 08:06] LABS: ALB/GLOB RATIO 0.8 (1.1-1.8); ALBUMIN 2.5 g/dL (3.0-4.8); BILIRUBIN,DIRECT 1.5 mg/dL (0.0-0.4)
--- NOTE | 2017-11-28 08:30 | RAD ---
HISTORY: assess gastrostomy tube COMPARISON: No prior. FINDINGS: BOWEL: Normal. No obstruction. No free air. Contrast was injected through the gastrostomy tube. The contrast can be seen in the stomach. The tube appears to be in satisfactory position BONES: Normal. OTHER FINDINGS: None. IMPRESSION: As above
--- NOTE | 2017-11-28 08:31 | RAD ---
HISTORY: leukocytosis COMPARISON: 08/26/2016 TECHNIQUE: Chest PA and lateral FINDINGS: LUNGS: No active pulmonary disease. PLEURA: No significant pleural effusion identified. No pneumothorax apparent. CARDIOVASCULAR: Normal. OSSEOUS STRUCTURES: No significant abnormalities. VISUALIZED UPPER ABDOMEN: Normal. OTHER FINDINGS: None. IMPRESSION: No active disease.
--- NOTE | 2017-11-28 10:59 | CP.PCM.PN ---
Subjective - Date & Time of Evaluation Date of Evaluation: 11/28/17 Time of Evaluation: 07:15 - Subjective Subjective: Medicine Note for Dr. Wagner Patient seen and examined at bedside. No acute event since admission. Patient is resting in bed comfortably. He reports that he is experiencing mild abdominal pain and back pain. Patient states that he is able to tolerate some oral intake but mainly gets nutrition from TPN. Denies fever/chills, chest pain , SOB, Palpitations, nausea/vomiting, urinary symptoms. Objective - Vital Signs/Intake and Output Vital Signs (last 24 hours): Temp Pulse Resp BP Pulse Ox 97.6 F 72 20 91/57 L 100 11/28/17 08:13 11/28/17 08:13 11/28/17 08:13 11/28/17 08:13 11/28/17 08:13 Intake and Output: 11/28/17 11/28/17 06:59 18:59 Intake Total 1150 Output Total 1100 Balance 50 - Medications Medications: Current Medications Acetaminophen (Tylenol 325mg Tab) 650 mg PO Q6H PRN PRN Reason: Fever >100.4 F Acetaminophen (Tylenol 325mg Tab) 650 mg PO Q6 PRN PRN Reason: TEMP>=99.5F Acetaminophen (Tylenol 650 Mg Supp) 650 mg RC Q6H PRN PRN Reason: TEMP>=99.5F Amitriptyline HCl (Elavil) 25 mg PO HS [facility] Last Admin: 11/28/17 00:35 Dose: 25 mg Gabapentin (Neurontin) 400 mg PO TID TAMMY PRN Reason: Protocol Last Admin: 11/28/17 10:12 Dose: 400 mg Hydromorphone HCl (Dilaudid) 0.5 mg IVP Q6H PRN PRN Reason: Pain, severe (8-10) Last Admin: 11/28/17 10:12 Dose: 0.5 mg Meropenem (Merrem Iv 1 Gm Premix) 50 mls @ 100 mls/hr IVPB Q12 TAMMY PRN Reason: Protocol Last Admin: 11/28/17 06:35 Dose: 100 mls/hr Potassium Chloride (Potassium Chloride 20 Meq/100 Ml) 20 meq in 100 mls @ 50 mls/hr IVPB Q2H [facility] Stop: 11/28/17 11:44 Last Admin: 11/28/17 10:07 Dose: 50 mls/hr Sodium Chloride (Sodium Chloride 0.9%) 1,000 mls @ 150 mls/hr IV .Q6H40M [facility] Ondansetron HCl (Zofran Inj) 4 mg IVP Q6H PRN PRN Reason: Nausea/Vomiting Pantoprazole Sodium (Protonix Inj) 40 mg IVP DAILY [facility] Last Admin: 11/28/17 10:13 Dose: 40 mg - Labs Labs: 11/28/17 06:20 11/28/17 06:20 PT 13.1 SECONDS (9.4-12.5) H 11/27/17 18:32 INR 1.15 (0.93-1.08) H 11/27/17 18:32 - Constitutional Appears: No Acute Distress - Head Exam Head Exam: ATRAUMATIC, NORMOCEPHALIC - Eye Exam Eye Exam: Normal appearance - ENT Exam ENT Exam: Mucous Membranes Moist - Respiratory Exam Respiratory Exam: Clear to Ausculation Bilateral, NORMAL BREATHING PATTERN - Cardiovascular Exam Cardiovascular Exam: REGULAR RHYTHM, +S1, +S2 - GI/Abdominal Exam GI & Abdominal Exam: Soft, Tenderness (mild periumbilical). absent: Distended, Firm, Guarding, Rigid, Rebound Additional comments: G tube in place ileostomy pink and patent draining dark green/brown fluid - Extremities Exam Extremities Exam: Normal Capillary Refill. absent: Calf Tenderness - Back Exam Back Exam: absent: CVA tenderness (L), CVA tenderness (R) Additional comments: Right nephrostomy tube in place - Neurological Exam Neurological Exam: Alert, Awake, CN II-XII Intact, Oriented x3 - Psychiatric Exam Psychiatric exam: Normal Affect, Normal Mood - Skin Skin Exam: Dry, Warm Assessment and Plan - Assessment and Plan (Free Text) Plan: 62 M with PMH of carcinoid CA and renal insufficiency admitted for malfunctioning nephrostomy tube 1. Sepsis - WBC downtrending - UA shows trace leuk est - NS at 150 cc/hr - f/u blood and urine cultures - f/u procalcitonin - Merrem - ID consult, Dr. Ye, help appreciated - CT abdomen pelvis showed possible cystitis, Moderate right hydroureter with no obstructing stones, Right nephrostomy in place with no significant hydronephrosis, Pneumobilia - which may be post operative in etiology. 2. Malfunctioning Nephrostomy tube - Urology consult, Dr. Bautista, help appreciated - IR consult, Dr. Calhoun, help appreciated 3. PRANAV - BUN/Cr consistent with prerenal nephropathy - Nephrology consult, Dr. Oseguera, help appreciated 4. Anemia, normocytic - Likely chronic - Retic count 2.00 - Folate and B12 normal - Iron, TIBC, and % saturation low - Ferritin normal - Type and cross matched 2 units - Heme/Onc consult, Dr. Wells, help appreciated 5. History of Carcinoid CA with ileostomy and g-tube - GI consult, Dr. Olivo, help appreciated - IR consult, Dr. Calhoun, help appreciated 6. Prophylactic Measures - Protonix - SCDs - TPN and Liquid diet for nutrition - Dilaudid for pain PRN Discussed in detail with Dr. Kristy Pdailla PGY1
[2017-11-28 12:19] LABS: FOLATE > 20.0 ng/mL
[2017-11-28] MEDS ORDERED: Lidocaine 2% Inj (20ml) ONE (15:34)
[2017-11-28] MEDS ORDERED: Midazolam 2 MG/2 ML VIAL ONE ×2 (15:36→16:22)
--- NOTE | 2017-11-28 15:41 | CP.PCM.CON ---
History of Present Illness - History of Present Illness History of Present Illness: 62 year old male with PMH of carcinoma of GI tract S/P colectomy and ileostomy, S/P neprhostomy tube placement on the right 2 years ago, history of G-tube placement, chronic renal failure was brought in to [facility] [place] because of burning sensation on urination and decreased output from the nephrostomy tube. He has some vague abdominal pain as well but denies fever or chills, no nausea or vomiting, no chest pain, no SOB, no headache or dizziness, no cough or rhinorrhea, no diarrhea, no cough or colds. CT A/P was done which showed right hydroureter, cystitis, pneumobilia. Infectious Diseases consult is requested to further evaluate and manage. Review of Systems - Review of Systems All systems: reviewed and no additional remarkable complaints except (as per HPI ) Past Patient History - Infectious Disease Hx of Infectious Diseases: None - Tetanus Immunizations Tetanus Immunization: Unknown - Past Social History Smoking Status: Former Smoker - CARDIAC Hx Cardiac Disorders: No - PULMONARY Hx Respiratory Disorders: No - NEUROLOGICAL Hx Neurological Disorder: No - HEENT Hx HEENT Problems: No - RENAL Hx Chronic Kidney Disease: Yes Other/Comment: HAS UROSTOMY - ENDOCRINE/METABOLIC Hx Endocrine Disorders: No - HEMATOLOGICAL/ONCOLOGICAL Hx Cancer: (Gastric; colon) - INTEGUMENTARY Hx Dermatological Problems: No - MUSCULOSKELETAL/RHEUMATOLOGICAL Hx Falls: No - GASTROINTESTINAL Hx Colostomy: Yes Hx Ileostomy: Yes Other/Comment: PEG TUBE - GENITOURINARY/GYNECOLOGICAL Hx Genitourinary Disorders: Yes Other/Comment: HAS UROSTOMY - PSYCHIATRIC Hx Psychophysiologic Disorder: No - SURGICAL HISTORY Other/Comment: COLOSTOMY, PEG TUBE, UROSTOMY Meds Allergies/Adverse Reactions: Allergies Allergy/AdvReac Type Severity Reaction Status Date / Time morphine Allergy ANAPHYLAXIS Verified 11/27/17 17:20 - Medications Medications: Current Medications Acetaminophen (Tylenol 325mg Tab) 650 mg PO Q6H PRN PRN Reason: Fever >100.4 F Amitriptyline HCl (Elavil) 25 mg PO HS [facility] Last Admin: 11/28/17 00:35 Dose: 25 mg Gabapentin (Neurontin) 400 mg PO TID TAMMY PRN Reason: Protocol Hydromorphone HCl (Dilaudid) 0.5 mg IVP Q6H PRN PRN Reason: Pain, severe (8-10) Last Admin: 11/28/17 04:59 Dose: 0.5 mg Piperacillin Sod/Tazobactam Sod (Zosyn 2.25 Gm In 0.9% 100 Ml) 2.25 gm in 100 mls @ 100 mls/hr IVPB Q6 TAMMY PRN Reason: Protocol Stop: 11/28/17 12:59 Last Admin: 11/28/17 04:59 Dose: 100 mls/hr Sodium Chloride (Sodium Chloride 0.9%) 1,000 mls @ 100 mls/hr IV .Q10H TAMMY Ondansetron HCl (Zofran Inj) 4 mg IVP Q6H PRN PRN Reason: Nausea/Vomiting Pantoprazole Sodium (Protonix Inj) 40 mg IVP DAILY TAMMY Physical Exam - Constitutional Appears: Chronically Ill - Head Exam Head Exam: NORMAL INSPECTION - ENT Exam ENT Exam: Mucous Membranes Moist - Neck Exam Neck exam: Negative for: Meningismus - Respiratory Exam Respiratory Exam: Decreased Breath Sounds - Cardiovascular Exam Cardiovascular Exam: +S1, +S2 - GI/Abdominal Exam GI & Abdominal Exam: Soft, Tenderness (mild). absent: Diminished Bowel Sounds, Distended, Guarding, Rebound, Rigid Additional comments: ileostomy in place - Back Exam Additional comments: right sided nephrostomy tube in place Results - Vital Signs Recent Vital Signs: Last Vital Signs Temp 97.4 F L 11/27/17 22:32 Pulse 74 11/27/17 22:32 Resp 20 11/27/17 22:32 BP 94/62 L 11/27/17 22:32 Pulse Ox 99 11/27/17 22:32 - Labs Result Diagrams: 11/28/17 06:20 11/28/17 06:20 Labs: Laboratory Results - last 24 hr 11/27/17 11/27/17 11/27/17 22:50 22:50 22:50 Lactic Acid 1.3 Iron 10 L TIBC 206 L % Saturation 5 L Blood Type O POSITIVE Blood Type Confirm Antibody Screen Negative Crossmatch See Detail BBK History Checked No verified bt 11/27/17 23:30 Lactic Acid Iron TIBC % Saturation Blood Type Blood Type Confirm O POSITIVE Antibody Screen Crossmatch BBK History Checked Assessment & Plan - Assessment and Plan (Free Text) Plan: Assessment Consider sepsis due to right sided pyelonephritis with associated cystitis pneumobilia and elevated bilirubin, consider S/P cholecystectomy R/O choledocholethiasis carcinoma of GI tract S/P colectomy and ileostomy S/P nephrostomy tube placement on the right 2 years ago history of G-tube placement chronic renal failure Plan Started the patient with a dose of IV Vancomycin and will continue Merrem pending blood, urine cx; reviewed CT A/P; will also order ultrasound of the abdomen follow up Urology evaluation will monitor clinically
--- NOTE | 2017-11-28 15:59 | CP.PCM.CON ---
History of Present Illness - History of Present Illness History of Present Illness: Initial Nephrology Consultation: Assessment: critical sepsis with ? 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 renal function at baseline Maintain hemodynamics stable. Patient not on ACEI/ARB due to PRANAV Monitor Input/Output, daily weights and renal function with basic metabolic panel d/c IV iron considering concerns for infection. supplements electrolytes as needed continue with IVF Check urine analysis, spot protein/creatinine and albumin/creatinine ratio ID, and IR consulted Dose meds/antibiotics for reduced GFR. Avoid fleets enema/magnesium based laxatives. Avoid nephrotoxins/NSAIDs/ iodinated contrast (unless needed emergently) Glycemic control Further work up/management as per primary team Thanks for allowing me to participate in care of your patient. Will follow patient with you. Please call if any Qs. d/w team Dr Eric Oseguera Office: [phone] Chief Complaint; Rt nephrostomy tube blockage Reason for consult: CKD HPI: Pt is a 62 M with hx of carcinoma of GI tract S/P colectomy and ileostomy , S/P Rt nephrostomy tube placement 2 years ago, history of G-tube placement presented with c/o decreased output from the nephrostomy tube. he says it was changed last week. pt also has CKD stage 3 for last 2-3 years with baseline cr 1.5-1.8. he c/o pain Rt flankand back pain as well Denies OTC/herbal meds or NSAIDs No recent iodinated contrast exposure. Noted obvious episodes of low BP. ROS: Cardiovascular: No chest pain. Pulmonary: No shortness of breath Gastrointestinal: denies abdominal pain No nausea. No vomiting. Genitourinary: No pain while urinating. Denies blood in urine. reports decreased output from nephrostomy tube All other negative Physical Examination: General Appearance: Comfortable, in no acute respiratory distress, co-operative . Vitals reviewed and noted as below Head; Atraumatic, normocephalic ENT: no ulcers no thrush. Tongue is midline. Oropharynx: no rash or ulcers. EYES: Pupils are equal, round and reactive to light accommodation. Eye muscles and extraocular movement intact. Sclera is anicteric. Neck; supple no lymphadenopathy, no thyromegaly or bruit Lungs: Normal respiratory rate/effort. Breath sounds bilateral equal and clear Heart: Normal rate. s1s2 normal. No rub or gallop. Extremities: no edema. No varicose veins Neurological: Patient is alert, awake and oriented to person, place and time. No focal deficit. Strength bilateral appropriate and equal Skin: Warm and dry. Normal turgor. No rash. Palpitation: Normal elasticity for age Abdomen: Abdomen is soft. Bowel sounds +. There is no abdominal tenderness, no guarding/rigidity no organomegaly. has iletostomy and G tube Psych: normal insight and normal affect/mood MSK: no joint tenderness or swelling. Digits and nails normal, no deformity : kidney or bladder not palpable. has Rt nephrostomy tube Labs/imaging reviewed. Past medical history, past surgical history, family history, social history, allergy reviewed and noted as below Family hx: no hx of CKD. Rest non-contributory Past Patient History - Infectious Disease Hx of Infectious Diseases: None - Tetanus Immunizations Tetanus Immunization: Unknown - Past Social History Smoking Status: Former Smoker - CARDIAC Hx Cardiac Disorders: No - PULMONARY Hx Respiratory Disorders: No - NEUROLOGICAL Hx Neurological Disorder: No - HEENT Hx HEENT Problems: No - RENAL Hx Chronic Kidney Disease: Yes Other/Comment: HAS UROSTOMY - ENDOCRINE/METABOLIC Hx Endocrine Disorders: No - HEMATOLOGICAL/ONCOLOGICAL Hx Cancer: (Gastric; colon) - INTEGUMENTARY Hx Dermatological Problems: No - MUSCULOSKELETAL/RHEUMATOLOGICAL Hx Falls: No - GASTROINTESTINAL Hx Colostomy: Yes Hx Ileostomy: Yes Other/Comment: PEG TUBE - GENITOURINARY/GYNECOLOGICAL Hx Genitourinary Disorders: Yes Other/Comment: HAS UROSTOMY - PSYCHIATRIC Hx Psychophysiologic Disorder: No - SURGICAL HISTORY Other/Comment: COLOSTOMY, PEG TUBE, UROSTOMY Meds Allergies/Adverse Reactions: Allergies Allergy/AdvReac Type Severity Reaction Status Date / Time morphine Allergy ANAPHYLAXIS Verified 11/27/17 17:20 - Medications Medications: Current Medications Acetaminophen (Tylenol 325mg Tab) 650 mg PO Q6H PRN PRN Reason: Fever >100.4 F Acetaminophen (Tylenol 325mg Tab) 650 mg PO Q6 PRN PRN Reason: TEMP>=99.5F Acetaminophen (Tylenol 650 Mg Supp) 650 mg RC Q6H PRN PRN Reason: TEMP>=99.5F Amitriptyline HCl (Elavil) 25 mg PO HS [facility] Last Admin: 11/28/17 00:35 Dose: 25 mg Gabapentin (Neurontin) 400 mg PO TID [facility] PRN Reason: Protocol Last Admin: 11/28/17 13:47 Dose: 400 mg Hydromorphone HCl (Dilaudid) 0.5 mg IVP Q6H PRN PRN Reason: Pain, severe (8-10) Last Admin: 11/28/17 10:12 Dose: 0.5 mg Meropenem (Merrem Iv 1 Gm Premix) 50 mls @ 100 mls/hr IVPB Q12 [facility] PRN Reason: Protocol Last Admin: 11/28/17 06:35 Dose: 100 mls/hr Sodium Chloride (Sodium Chloride 0.9%) 1,000 mls @ 150 mls/hr IV .Q6H40M [facility] Multivitamins/Vitamin C 10 ml/Chromium/Copper/Manganese/Zinc 1 ml/ Famotidine 40 mg/Insulin Human Regular 12 units / Amino Acids/Electrolytes/Dextrose 2, 015.12 mls @ 83.963 mls/hr IV .Q24H [facility] Fat Emulsion Intravenous (Intralipid 20%) 250 mls @ 20.833 mls/hr IV Q24H [facility] Midodrine (Proamatine) 2.5 mg PO TID [facility] Last Admin: 11/28/17 13:47 Dose: 2.5 mg Ondansetron HCl (Zofran Inj) 4 mg IVP Q6H PRN PRN Reason: Nausea/Vomiting Oxycodone HCl (Oxycodone Immediate Release Tab) 30 mg PO Q6H PRN PRN Reason: Pain, moderate (4-7) Pantoprazole Sodium (Protonix Ec Tab) 40 mg PO ACB [facility] Results - Vital Signs Recent Vital Signs: Last Vital Signs Temp 97.6 F 11/28/17 08:13 Pulse 72 11/28/17 08:13 Resp 20 11/28/17 08:13 BP 91/57 L 11/28/17 08:13 Pulse Ox 100 11/28/17 08:13 - Labs Result Diagrams: 11/28/17 06:20 11/28/17 06:20 Labs: Laboratory Results - last 24 hr 11/27/17 11/27/17 11/27/17 22:50 22:50 22:50 WBC RBC Hgb Hct MCV MCH MCHC RDW Plt Count MPV Sodium Potassium Chloride Carbon Dioxide Anion Gap BUN Creatinine Est GFR ( Amer) Est GFR (Non-Af Amer) Random Glucose Lactic Acid Calcium Phosphorus Magnesium Iron 10 L TIBC 206 L % Saturation 5 L Ferritin 577.0 Total Bilirubin Direct Bilirubin AST ALT Alkaline Phosphatase Total Protein Albumin Globulin Albumin/Globulin Ratio Vitamin B12 881 Folate > 20.0 Procalcitonin Blood Type O POSITIVE Blood Type Confirm Antibody Screen Negative Crossmatch See Detail BBK History Checked No verified bt 11/27/17 11/27/17 11/28/17 22:50 23:30 06:20 WBC 23.3 H RBC 2.70 L Hgb 8.3 L Hct 25.1 L MCV 93.0 MCH 30.7 MCHC 33.1 RDW 18.1 H Plt Count 247 MPV 10.8 Sodium Potassium Chloride Carbon Dioxide Anion Gap BUN Creatinine Est GFR ( Amer) Est GFR (Non-Af Amer) Random Glucose Lactic Acid 1.3 Calcium Phosphorus Magnesium Iron TIBC % Saturation Ferritin Total Bilirubin Direct Bilirubin AST ALT Alkaline Phosphatase Total Protein Albumin Globulin Albumin/Globulin Ratio Vitamin B12 Folate Procalcitonin Blood Type Blood Type Confirm O POSITIVE Antibody Screen Crossmatch BBK History Checked 11/28/17 11/28/17 11/28/17 06:20 06:20 07:45 WBC RBC Hgb Hct MCV MCH MCHC RDW Plt Count MPV Sodium 138 Potassium 3.4 L Chloride 102 Carbon Dioxide 30 Anion Gap 9 L BUN 38 H Creatinine 1.4 Est GFR ( Amer) > 60 Est GFR (Non-Af Amer) 52 Random Glucose 100 Lactic Acid Calcium 9.1 Phosphorus 3.1 Magnesium 2.2 Iron TIBC % Saturation Ferritin Total Bilirubin 1.8 H 1.8 H Direct Bilirubin 1.5 H AST 47 48 ALT 35 32 Alkaline Phosphatase 340 H 334 H Total Protein 5.7 L 5.8 Albumin 2.5 L 2.5 L Globulin 3.2 3.3 Albumin/Globulin Ratio 0.8 L 0.8 L Vitamin B12 Folate Procalcitonin 12.45 H Blood Type Blood Type Confirm Antibody Screen Crossmatch BBK History Checked
--- NOTE | 2017-11-28 16:15 | PN ---
DATE: 11/28/2017 SUBJECTIVE: The patient is admitted overnight by the medical physicist. The patient is a 62-year-old male seen in now 366, bed 1. The patient is seen lying in the bed, watching TV. The patient appears to be comfortable. The patient does not offer any specific complaints. The patient presented to the emergency room yesterday for evaluation of clogged nephrostomy tube and malfunctioning nephrostomy tube with pain in the left flank area, 02/12. DIAGNOSES: 1. Right nephrostomy tube malfunction with occlusion and obstruction. 2. Tachycardia. 3. Asymptomatic hypotension. 4. History of carcinoid tumor of the gastrointestinal tract. 5. Status post ileostomy, colostomy. 6. Status post gastrostomy. 7. Status post right-sided percutaneous nephrostomy. 8. Leukocytosis with granulocytosis and bandemia. 9. Questionable sepsis. 10. Persistent leukocytosis with granulocytosis. 11. Normocytic anemia with decreasing hemoglobin and hematocrit. 12. Hyperbilirubinemia. 13. Protein malnutrition and hypoalbuminemia. 14. Hyperglycemia. 15. Hypokalemia. 16. Acute kidney injury with underlying chronic kidney disease, stage 3. 17. Proteinuria, hematuria, pyuria, bacteriuria. 18. O+ blood type. 19. Pneumobilia. 20. Non-visualized gallbladder. 21. Moderate right hydroureter involving the proximal and mid right ureter without significant right hydronephrosis. 22. Non-visualized right distal ureter. 23. Right-sided percutaneous nephrostomy. 24. Non-obstructing right-sided nephrolithiasis. 25. Left renal duplicated collecting system. 26. Subtotal colectomy. 27. Ileostomy of the left anterior abdominal wall. 28. Appendectomy. 29. Questionable cystitis with moderately and diffusely thickened urinary bladder wall. 30. Deconditioning. 31. Cachexia. 32. Status post chemotherapy treatment at [facility]. 33. Right upper chest Port-A-Cath placement. 34. Gastrostomy tube placement. 35. Possible cystitis. 36. History of colectomy, ileostomy, history of nephrostomy, history of gastrostomy, history of chronic kidney disease, history of chemotherapy treatment done, history of gastrostomy tube placement. 37. Hypotension. 38. Right percutaneous nephrostomy malfunction. 39. Acute kidney injury with proteinuria. 40. Normocytic iron-deficiency anemia. PHYSICAL EXAMINATION: GENERAL: The patient is seen lying in the bed in room 366, bed 1. HEAD: Normocephalic, atraumatic. EENT: Shows pale conjunctivae. Dry oral mucosa. No neck rigidity. CHEST: Kyphosis. Right upper chest Port-A-Cath noted. LUNGS: Shows no rales, crackles or wheezing. CARDIOVASCULAR: S1, S2, regular rhythm. No audible murmur, gallop or rub. ABDOMEN: Shows positive gastrostomy, positive ileostomy. Positive diffuse voluntary guarding noted. No rebound tenderness noted. GENITALIA: Male. Right-sided percutaneous nephrostomy noted. MUSCULOSKELETAL: Shows a body mass index of 19.5. NEUROLOGIC: The patient is alert, awake, responsive, is able to move upper and lower extremity without assistance. Gait examination not tested. VASCULAR: Palpable pulses. PSYCHIATRIC: Negative. The patient's impression as above. PLAN: At this time, the patient has been ordered serial labs; B12, folate, ferritin level pending. Erythropoietin pending. Repeat CBC ordered. Blood and urine cultures ordered. Consultation: 1. Gastroenterology. 2. Hematology/Oncology. 3. Infectious Disease. 4. Nephrology. 5. Urology. 6. Interventional Radiology. Procalcitonin level ordered. The patient has been started on IV TPN, which the patient gets at home also. The patient is on Dilaudid 0.5 IV every 6 hours p.r.n., Elavil 25 at bedtime. The patient is also ordered Intralipid 20% 250 mL. The patient is started on meropenem 1 gm IV every 12 hours by the Infectious Disease, Neurontin 400 three times a day, Protonix 40 mg daily. The patient is started on IV fluid 0.9 normal saline at 150 mL an hour, Tylenol p.r.n. The patient has also received vancomycin 1 gm in the emergency room. The patient also received Zosyn 3.375 gm in the emergency room. The patient is on Zofran 4 mg IV every 6 hours p.r.n. The patient is ordered liquid diet in addition to TPN. The patient is awaiting further evaluation by Gastroenterology, Hematology/Oncology, Infectious Disease, Nephrology, Urology and Interventional Radiology. The patient has been ordered out of bed to chair, head of the bed at 30 degrees. SCDs, JOESPH stockings, occupational therapy, physical therapy ordered. The patient's lab data will be monitored. The patient has been ordered supplementation of the potassium because of the hypokalemia. The patient will be ordered repeat labs for the morning. If the patient's hemoglobin/hematocrit drops further, the patient may need transfusion. The patient will be ordered low-dose midodrine for blood pressure support. At present, the patient's further management will be dependent upon the patient's clinical condition, hemodynamic status and as per the patient response to therapeutic intervention, as per recommendation by Gastroenterology, Hematology/Oncology, Infectious Disease, Nephrology, Urology and Interventional Radiology. The patient has been explained about the details of his medical condition, need for further diagnostic therapeutic Intervention, need for further diagnostic testing, need for further therapeutic intervention was explained to the patient at length. All questions concerned answered, which he acknowledged understand. The patient's code status at present is full code. Dictated and electronically signed, not read. Sergio Wagner MD
[2017-11-28] MEDS ORDERED: Iodixanol 320 MG/ML 100 ML BOTTLE IV ONE (16:21)
[2017-11-28] MEDS: Fat Emulsion 20% IV 250 ML IV SCH (18:01)
[2017-11-28] MEDS: [UNRECOGNIZED DRUG - NUTRITION] IV SCH (18:02)
[2017-11-28] MEDS: oxyCODONE 30 mg Immediate Release Tab PO PRN (18:22)
--- NOTE | 2017-11-28 19:46 | CP.PCM.CON ---
History of Present Illness - History of Present Illness History of Present Illness: 62 year old male with a history of carcinoid tumor diagnosed 4 years ago s/p colectomy, ileostomy, right sided nephrostomy tube, on systemic therapy, admitted with sepsis from pyelonephritis/cystitis, with anemia. The patient reports to decreased urine output and fatigue which prompted him to come to the ER. He has a PEG tube with chronic bowel obstruction and is on TPN. He notes to intermittent chemotherapy and monthly Sandostatin LAR injections in [place]. He denies abnormal bleeding and bruising. 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 Allergies: Morphine Review of systems: All remaining review of systems including HEENT, cardiovascular, respiratory, gastrointestinal, genitourinary, musculoskeletal, dermatologic, neurologic, and psychiatric are negative unless mentioned in the HPI. Past Patient History - Infectious Disease Hx of Infectious Diseases: None - Tetanus Immunizations Tetanus Immunization: Unknown - Past Social History Smoking Status: Former Smoker - CARDIAC Hx Cardiac Disorders: No - PULMONARY Hx Respiratory Disorders: No - NEUROLOGICAL Hx Neurological Disorder: No - HEENT Hx HEENT Problems: No - RENAL Hx Chronic Kidney Disease: Yes Other/Comment: HAS UROSTOMY - ENDOCRINE/METABOLIC Hx Endocrine Disorders: No - HEMATOLOGICAL/ONCOLOGICAL Hx Cancer: (Gastric; colon) - INTEGUMENTARY Hx Dermatological Problems: No - MUSCULOSKELETAL/RHEUMATOLOGICAL Hx Falls: No - GASTROINTESTINAL Hx Colostomy: Yes Hx Ileostomy: Yes Other/Comment: PEG TUBE - GENITOURINARY/GYNECOLOGICAL Hx Genitourinary Disorders: Yes Other/Comment: HAS UROSTOMY - PSYCHIATRIC Hx Psychophysiologic Disorder: No - SURGICAL HISTORY Other/Comment: COLOSTOMY, PEG TUBE, UROSTOMY Meds Allergies/Adverse Reactions: Allergies Allergy/AdvReac Type Severity Reaction Status Date / Time morphine Allergy ANAPHYLAXIS Verified 11/27/17 17:20 - Medications Medications: Current Medications Acetaminophen (Tylenol 325mg Tab) 650 mg PO Q6H PRN PRN Reason: Fever >100.4 F Acetaminophen (Tylenol 325mg Tab) 650 mg PO Q6 PRN PRN Reason: TEMP>=99.5F Acetaminophen (Tylenol 650 Mg Supp) 650 mg RC Q6H PRN PRN Reason: TEMP>=99.5F Amitriptyline HCl (Elavil) 25 mg PO [facility] Last Admin: 11/28/17 00:35 Dose: 25 mg Gabapentin (Neurontin) 400 mg PO TID [facility] PRN Reason: Protocol Last Admin: 11/28/17 17:55 Dose: 400 mg Hydromorphone HCl (Dilaudid) 0.5 mg IVP Q6H PRN PRN Reason: Pain, severe (8-10) Last Admin: 11/28/17 10:12 Dose: 0.5 mg Meropenem (Merrem Iv 1 Gm Premix) 50 mls @ 100 mls/hr IVPB Q12 [facility] PRN Reason: Protocol Last Admin: 11/28/17 06:35 Dose: 100 mls/hr Sodium Chloride (Sodium Chloride 0.9%) 1,000 mls @ 150 mls/hr IV .Q6H40M [facility] Multivitamins/Vitamin C 10 ml/Chromium/Copper/Manganese/Zinc 1 ml/ Famotidine 40 mg/Insulin Human Regular 12 units / Amino Acids/Electrolytes/Dextrose 2, 015.12 mls @ 83.963 mls/hr IV .Q24H [facility] Last Admin: 11/28/17 18:02 Dose: 83.963 mls/hr Fat Emulsion Intravenous (Intralipid 20%) 250 mls @ 20.833 mls/hr IV Q24H [facility] Last Admin: 11/28/17 18:01 Dose: 20.833 mls/hr Midodrine (Proamatine) 2.5 mg PO TID [facility] Last Admin: 11/28/17 17:55 Dose: 2.5 mg Ondansetron HCl (Zofran Inj) 4 mg IVP Q6H PRN PRN Reason: Nausea/Vomiting Oxycodone HCl (Oxycodone Immediate Release Tab) 30 mg PO Q6H PRN PRN Reason: Pain, moderate (4-7) Last Admin: 11/28/17 18:22 Dose: 30 mg Pantoprazole Sodium (Protonix Ec Tab) 40 mg PO ACB [facility] Physical Exam - Head Exam Head Exam: ATRAUMATIC - Eye Exam Eye Exam: Normal appearance - ENT Exam ENT Exam: Mucous Membranes Dry - Respiratory Exam Respiratory Exam: NORMAL BREATHING PATTERN - Cardiovascular Exam Cardiovascular Exam: +S1, +S2 - GI/Abdominal Exam GI & Abdominal Exam: Normal Bowel Sounds Results - Vital Signs Recent Vital Signs: Last Vital Signs Temp 98.1 F 11/28/17 17:35 Pulse 65 11/28/17 17:35 Resp 18 11/28/17 17:35 BP 107/71 11/28/17 17:35 Pulse Ox 98 11/28/17 17:35 - Labs Result Diagrams: 11/28/17 06:20 11/28/17 06:20 Labs: Laboratory Results - last 24 hr 11/27/17 11/27/17 11/27/17 22:50 22:50 22:50 WBC RBC Hgb Hct MCV MCH MCHC RDW Plt Count MPV Sodium Potassium Chloride Carbon Dioxide Anion Gap BUN Creatinine Est GFR ( Amer) Est GFR (Non-Af Amer) Random Glucose Lactic Acid Calcium Phosphorus Magnesium Iron 10 L TIBC 206 L % Saturation 5 L Ferritin 577.0 Total Bilirubin Direct Bilirubin AST ALT Alkaline Phosphatase Total Protein Albumin Globulin Albumin/Globulin Ratio Vitamin B12 881 Folate > 20.0 Procalcitonin Blood Type O POSITIVE Blood Type Confirm Antibody Screen Negative Crossmatch See Detail BBK History Checked No verified bt 11/27/17 11/27/17 11/28/17 22:50 23:30 06:20 WBC 23.3 H RBC 2.70 L Hgb 8.3 L Hct 25.1 L MCV 93.0 MCH 30.7 MCHC 33.1 RDW 18.1 H Plt Count 247 MPV 10.8 Sodium Potassium Chloride Carbon Dioxide Anion Gap BUN Creatinine Est GFR ( Amer) Est GFR (Non-Af Amer) Random Glucose Lactic Acid 1.3 Calcium Phosphorus Magnesium Iron TIBC % Saturation Ferritin Total Bilirubin Direct Bilirubin AST ALT Alkaline Phosphatase Total Protein Albumin Globulin Albumin/Globulin Ratio Vitamin B12 Folate Procalcitonin Blood Type Blood Type Confirm O POSITIVE Antibody Screen Crossmatch BBK History Checked 11/28/17 11/28/17 11/28/17 06:20 06:20 07:45 WBC RBC Hgb Hct MCV MCH MCHC RDW Plt Count MPV Sodium 138 Potassium 3.4 L Chloride 102 Carbon Dioxide 30 Anion Gap 9 L BUN 38 H Creatinine 1.4 Est GFR ( Amer) > 60 Est GFR (Non-Af Amer) 52 Random Glucose 100 Lactic Acid Calcium 9.1 Phosphorus 3.1 Magnesium 2.2 Iron TIBC % Saturation Ferritin Total Bilirubin 1.8 H 1.8 H Direct Bilirubin 1.5 H AST 47 48 ALT 35 32 Alkaline Phosphatase 340 H 334 H Total Protein 5.7 L 5.8 Albumin 2.5 L 2.5 L Globulin 3.2 3.3 Albumin/Globulin Ratio 0.8 L 0.8 L Vitamin B12 Folate Procalcitonin 12.45 H Blood Type Blood Type Confirm Antibody Screen Crossmatch BBK History Checked Assessment & Plan (1) Anemia Assessment and Plan: anemia of chronic disease from malignancy may be exacerbated by sepsis anemia of chemotherapy anemia of CKD no evidence of iron, b12, folate deficiency no evidence of hemolysis transfusion support PRN Status: Acute (2) Leukocytosis Assessment and Plan: improving with antibiotics Status: Acute (3) Carcinoid tumor Assessment and Plan: outpatient treatment with primary oncologist Thank you for this interesting consult. Status: Acute
--- NOTE | 2017-11-28 23:01 | CON ---
DATE: 11/28/2017 REQUESTING PHYSICIAN: Sergio Wagner MD REASON FOR CONSULTATION: I have been asked to see this 62-year-old male with known history of carcinoid, status post ileostomy, right nephrostomy tube placement and PEG placement with chronic bowel obstruction requiring intestinal decompression using his gastrostomy tube and chronic home hyperalimentation, who comes to the hospital with malfunctioning right nephrostomy tube. The patient states that he has had no urine output from his right nephrostomy tube since Tuesday morning. He has some abdominal pain around his ileostomy. The patient states that this abdominal pain has been chronic for several months and takes pain medications at home. He denies any nausea, vomiting, bleeding from his ileostomy, fevers or chills. PAST MEDICAL HISTORY: As above. Again, he has a history of carcinoid, chronic bowel obstruction requiring gastrostomy tube decompression, right hydronephrosis requiring nephrostomy tube placement. SOCIAL HISTORY: Denies cigarette smoking or alcohol use. FAMILY HISTORY: Noncontributory. REVIEW OF SYSTEMS: Fourteen-point review of systems is notable for chronic abdominal pain around his ileostomy and nonfunctioning right nephrostomy tube. PHYSICAL EXAMINATION: GENERAL: Middle-aged male lying in bed, in no acute distress. VITAL SIGNS: Reveal temperature of 97.6, blood pressure 91/57, heart rate of 72. HEENT: Reveal sclerae to be white. Conjunctivae pale. NECK: Supple. CHEST: Reveal lungs to be clear. HEART: Reveals regular rate and rhythm. ABDOMEN: Soft. He has a nephrostomy tube in his right flank. He has a right lower quadrant ileostomy. He has a gastrostomy tube in his epigastrium. EXTREMITIES: Show no edema. LABORATORY DATA: Reveal white blood cell count 23.3, hemoglobin 8.3, reticulocyte count of 2. Chemistries reveal potassium of 3.4, BUN of 38, creatinine 1.4, total bilirubin 1.8. AST and ALT normal. Alkaline phosphatase of 334. CT scan of the abdomen and pelvis reveal pneumobilia in the biliary tree, absent gallbladder, moderate right hydroureter and evidence of a subtotal colectomy, and infiltration of fat around the urinary bladder. No evidence of intestinal obstruction. IMPRESSION: A 62-year-old male with history of carcinoid involving his colon status post subtotal colectomy, ileostomy, chronic intestinal obstruction requiring gastrostomy tube decompression of his small bowel with right hydronephrosis and chronic pain around the ileostomy. The air in the biliary tree is most likely secondary to prior sphincterotomy or surgery involving his gallbladder. There are no new acute findings noted on CAT scan. His overall prognosis is poor. RECOMMENDATIONS: 1. Urology evaluation for nonfunctioning right nephrostomy tube. 2. Continue hyperalimentation and decompression of his small bowel with the gastrostomy tube. 3. Infectious Disease evaluation for possible systemic inflammatory response syndrome versus sepsis. 4. No other GI testing is planned at this time. Ezequiel Olivo MD
[2017-11-29 06:27] LABS: BASO # 0.04 K/mm3 (0.0-2.0); BASO % 0.4 % (0.0-3.0); EOS # 0.1 (0.0-0.7); EOS % 1.2 % (1.5-5.0); GRAN # 7.74 (1.4-6.5); GRAN % 69.3 % (50.0-68.0); HEMOGLOBIN 8.9 g/dL (14.0-18.0); LYMPH # 1.3 (1.2-3.4); LYMPH % 11.5 % (22.0-35.0); MEAN CELL VOLUME 94.8 fl (80.0-105.0); MEAN CORPUSCULAR HEMOGLOBIN 30.9 pg (25.0-35.0); MEAN CORPUSCULAR HGB CONC 32.6 g/dl (31.0-37.0); MEAN PLATELET VOLUME 12.1 fl (7.0-11.0); MONO % 17.6 % (1.0-6.0); RBC 2.88 10^6/uL (3.5-6.1); RED CELL DISTRIBUTION WIDTH 18.3 % (11.5-14.5); WHITE BLOOD COUNT 11.2 10^3/ul (4.5-11.0)
[2017-11-29] MEDS: oxyCODONE 30 mg Immediate Release Tab PO PRN (06:46)
[2017-11-29 07:01] LABS: ALB/GLOB RATIO 0.8 (1.1-1.8); ALBUMIN 2.5 g/dL (3.0-4.8); ALT/SGPT 33 U/L (7-56); AST/SGOT 47 U/L (17-59); BLOOD UREA NITROGEN 28 mg/dL (7-21); CALCIUM 9.2 mg/dL (8.4-10.5); GFR AFRICAN-AMERICAN > 60; GFR NON-AFRICAN AMERICAN > 60
--- NOTE | 2017-11-29 08:53 | PQF SEPSIS ---
This form is a permanent part of the medical record Dr. Wagner, Patient was admitted with right sided pyelonephritis, cystitis. Your progress notes list "questionable sepsis". Please clarify/specify if sepsis was present on admission or ruled out. Also, please specify if this infection is a catheter related infection. Clarification of your documentation is requested to better reflect the severity of illness and intensity of treatment of your patient. Indicators present [] Temp < 96.8 or > 100.4 [x] WBC count > 12,000/mm3 or <000/mm3 or 10% immature neutrophils [x] Heart Rate > 90 [] Respiratory Rate > 20 [] Fever or hypothermia [] Chills [] Positive blood cultures [x] Hypotension [] Metabolic acidosis (Elevated lactate level, anion gap or reduced blood pH) [] Acute confusion /Altered Mental Status [] Shock [] Other: [x] pyelonephritis/cystitis Location in the medical record that reflects the above clinical findings: [] Treatment Provided: [] PHYSICIAN'S RESPONSE Based on your medical judgment of the clinical indicators outlined above, are you treating this patient for a known or suspected: [] Sepsis / Septicemia Please specify organism if known [] [] SIRS (Systemic Inflammatory Response Syndrome) [] Severe Sepsis (Sepsis with Associated Organ Dysfunction) [] Fever of Unknown Origin [] Other, please indicate: [] [] If Unable to Determine, please check the box, sign and date. Present On Admission (POA) Indicator: [] Present at the time of admission [] Not present at the time of admission [] Clinically Undetermined In responding to this query, please exercise your independent professional judgment. The fact that a question is asked does not imply that any particular answer is desired or expected. Thank you for your clarification on this documentation. If you have any questions please call:[ ] * Thank you, [ ]Sandhya Flores [facility] #[id number] ceramics instructor MARITZA
[2017-11-29] MEDS: Sodium Chloride 0.9% 1,000 ML IV SCH ×2 (09:28→18:27)
[2017-11-29] MEDS: Meropenem IV 1 gm in NS 50 ML IVPB SCH ×2 (09:29→22:47)
[2017-11-29] MEDS: Pantoprazole 40 mg EC Tab PO SCH (09:30)
[2017-11-29] MEDS: HYDROmorphone 0.5 mg/0.5 ml ISec IVP PRN ×2 (09:39→18:47)
--- NOTE | 2017-11-29 16:40 | CP.PCM.PN ---
Subjective - Date & Time of Evaluation Date of Evaluation: 11/29/17 Time of Evaluation: 16:39 - Subjective Subjective: Nephrology Consultation: Assessment: Stable PRANAV improved sepsis with ? 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 renal function improving Maintain hemodynamics stable. Patient not on ACEI/ARB due to PRANAV Monitor Input/Output, daily weights and renal function with basic metabolic panel d/c IV iron considering concerns for infection. supplements electrolytes as needed continue with IVF as normal saline Check urine analysis, spot protein/creatinine and albumin/creatinine ratio ID, , heme and IR consulted Dose meds/antibiotics for reduced GFR. Avoid fleets enema/magnesium based laxatives. Avoid nephrotoxins/NSAIDs/ iodinated contrast (unless needed emergently) Glycemic control Further work up/management as per primary team Thanks for allowing me to participate in care of your patient. Will follow patient with you. Please call if any Qs. 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 he says it was changed last week. pt also has CKD stage 3 for last 2-3 years with baseline cr 1.5-1.8. he c/o pain Rt flankand back pain as well Denies OTC/herbal meds or NSAIDs No recent iodinated contrast exposure. Noted obvious episodes of low BP. ROS: Cardiovascular: No chest pain. Pulmonary: No shortness of breath Gastrointestinal: denies abdominal pain No nausea. No vomiting. Genitourinary: No pain while urinating. Denies blood in urine. reports improved output from nephrostomy tube s/p intervention All other negative Physical Examination: General Appearance: Comfortable, in no acute respiratory distress, co-operative . Vitals reviewed and noted as below Head; Atraumatic, normocephalic ENT: no ulcers no thrush. Tongue is midline. Oropharynx: no rash or ulcers. EYES: Pupils are equal, round and reactive to light accommodation. Eye muscles and extraocular movement intact. Sclera is anicteric. Neck; supple no lymphadenopathy, no thyromegaly or bruit Lungs: Normal respiratory rate/effort. Breath sounds bilateral equal and clear Heart: Normal rate. s1s2 normal. No rub or gallop. Extremities: no edema. No varicose veins Neurological: Patient is alert, awake and oriented to person, place and time. No focal deficit. Strength bilateral appropriate and equal Skin: Warm and dry. Normal turgor. No rash. Palpitation: Normal elasticity for age Abdomen: Abdomen is soft. Bowel sounds +. There is no abdominal tenderness, no guarding/rigidity no organomegaly. has iletostomy and G tube Psych: normal insight and normal affect/mood MSK: no joint tenderness or swelling. Digits and nails normal, no deformity : kidney or bladder not palpable. has Rt nephrostomy tube draining urine Labs/imaging reviewed. Past medical history, past surgical history, family history, social history, allergy reviewed and noted as below Family hx: no hx of CKD. Rest non-contributory Objective - Vital Signs/Intake and Output Vital Signs (last 24 hours): Temp Pulse Resp BP Pulse Ox 97.9 F 70 18 116/71 100 11/29/17 08:15 11/29/17 09:41 11/29/17 08:15 11/29/17 09:41 11/29/17 08:15 Intake and Output: 11/29/17 11/29/17 06:59 18:59 Intake Total 1562 Output Total 1370 Balance 192 - Medications Medications: Current Medications Acetaminophen (Tylenol 325mg Tab) 650 mg PO Q6H PRN PRN Reason: Fever >100.4 F Acetaminophen (Tylenol 325mg Tab) 650 mg PO Q6 PRN PRN Reason: TEMP>=99.5F Acetaminophen (Tylenol 650 Mg Supp) 650 mg RC Q6H PRN PRN Reason: TEMP>=99.5F Amitriptyline HCl (Elavil) 25 mg PO HS [facility] Last Admin: 11/28/17 21:27 Dose: 25 mg Gabapentin (Neurontin) 400 mg PO TID [facility] PRN Reason: Protocol Last Admin: 11/29/17 15:51 Dose: 400 mg Hydromorphone HCl (Dilaudid) 0.5 mg IVP Q6H PRN PRN Reason: Pain, severe (8-10) Last Admin: 11/29/17 09:39 Dose: 0.5 mg Meropenem (Merrem Iv 1 Gm Premix) 50 mls @ 100 mls/hr IVPB Q12 [facility] PRN Reason: Protocol Last Admin: 11/29/17 09:29 Dose: 100 mls/hr Sodium Chloride (Sodium Chloride 0.9%) 1,000 mls @ 150 mls/hr IV .Q6H40M [facility] Last Admin: 11/29/17 09:28 Dose: 150 mls/hr Multivitamins/Vitamin C 10 ml/Chromium/Copper/Manganese/Zinc 1 ml/ Famotidine 40 mg/Insulin Human Regular 12 units / Amino Acids/Electrolytes/Dextrose 2, 015.12 mls @ 83.963 mls/hr IV .Q24H [facility] Last Admin: 11/28/17 18:02 Dose: 83.963 mls/hr Fat Emulsion Intravenous (Intralipid 20%) 250 mls @ 20.833 mls/hr IV Q24H [facility] Last Admin: 11/28/17 18:01 Dose: 20.833 mls/hr Midodrine (Proamatine) 2.5 mg PO TID [facility] Last Admin: 11/29/17 15:50 Dose: 2.5 mg Ondansetron HCl (Zofran Inj) 4 mg IVP Q6H PRN PRN Reason: Nausea/Vomiting Oxycodone HCl (Oxycodone Immediate Release Tab) 30 mg PO Q6H PRN PRN Reason: Pain, moderate (4-7) Last Admin: 11/29/17 06:46 Dose: 30 mg Pantoprazole Sodium (Protonix Ec Tab) 40 mg PO ACB [facility] Last Admin: 11/29/17 09:30 Dose: 40 mg - Labs Labs: 11/29/17 05:30 11/29/17 05:30 PT 13.1 SECONDS (9.4-12.5) H 11/27/17 18:32 INR 1.15 (0.93-1.08) H 11/27/17 18:32
[2017-11-29] MEDS: [UNRECOGNIZED DRUG - NUTRITION] IV SCH (18:27)
[2017-11-29] MEDS: Fat Emulsion 20% IV 250 ML IV SCH (18:28)
--- NOTE | 2017-11-29 21:19 | CP.PCM.PN ---
Subjective - Date & Time of Evaluation Date of Evaluation: 11/29/17 Time of Evaluation: 19:45 - Subjective Subjective: Feeling better Objective - Vital Signs/Intake and Output Vital Signs (last 24 hours): Temp Pulse Resp BP Pulse Ox 97 F L 68 18 112/72 98 11/29/17 16:00 11/29/17 16:00 11/29/17 16:00 11/29/17 16:00 11/29/17 16:00 Intake and Output: 11/29/17 11/30/17 18:59 06:59 Intake Total 5130 Output Total 1550 Balance 3580 - Medications Medications: Current Medications Acetaminophen (Tylenol 325mg Tab) 650 mg PO Q6H PRN PRN Reason: Fever >100.4 F Acetaminophen (Tylenol 325mg Tab) 650 mg PO Q6 PRN PRN Reason: TEMP>=99.5F Acetaminophen (Tylenol 650 Mg Supp) 650 mg RC Q6H PRN PRN Reason: TEMP>=99.5F Amitriptyline HCl (Elavil) 25 mg PO HS [facility] Last Admin: 11/28/17 21:27 Dose: 25 mg Gabapentin (Neurontin) 400 mg PO TID [facility] PRN Reason: Protocol Last Admin: 11/29/17 18:28 Dose: 400 mg Hydromorphone HCl (Dilaudid) 0.5 mg IVP Q6H PRN PRN Reason: Pain, severe (8-10) Last Admin: 11/29/17 18:47 Dose: 0.5 mg Meropenem (Merrem Iv 1 Gm Premix) 50 mls @ 100 mls/hr IVPB Q12 [facility] PRN Reason: Protocol Last Admin: 11/29/17 09:29 Dose: 100 mls/hr Sodium Chloride (Sodium Chloride 0.9%) 1,000 mls @ 150 mls/hr IV .Q6H40M [facility] Last Admin: 11/29/17 18:27 Dose: 150 mls/hr Multivitamins/Vitamin C 10 ml/Chromium/Copper/Manganese/Zinc 1 ml/ Famotidine 40 mg/Insulin Human Regular 12 units / Amino Acids/Electrolytes/Dextrose 2, 015.12 mls @ 83.963 mls/hr IV .Q24H [facility] Last Admin: 11/29/17 18:27 Dose: 83.963 mls/hr Fat Emulsion Intravenous (Intralipid 20%) 250 mls @ 20.833 mls/hr IV Q24H [facility] Last Admin: 11/29/17 18:28 Dose: 20.833 mls/hr Midodrine (Proamatine) 2.5 mg PO TID [facility] Last Admin: 11/29/17 18:28 Dose: 2.5 mg Ondansetron HCl (Zofran Inj) 4 mg IVP Q6H PRN PRN Reason: Nausea/Vomiting Oxycodone HCl (Oxycodone Immediate Release Tab) 30 mg PO Q6H PRN PRN Reason: Pain, moderate (4-7) Last Admin: 11/29/17 06:46 Dose: 30 mg Pantoprazole Sodium (Protonix Ec Tab) 40 mg PO ACB [facility] Last Admin: 11/29/17 09:30 Dose: 40 mg - Labs Labs: 11/29/17 05:30 11/29/17 05:30 PT 13.1 SECONDS (9.4-12.5) H 11/27/17 18:32 INR 1.15 (0.93-1.08) H 11/27/17 18:32 - Head Exam Head Exam: ATRAUMATIC - Eye Exam Eye Exam: Normal appearance - ENT Exam ENT Exam: Mucous Membranes Dry - Respiratory Exam Respiratory Exam: NORMAL BREATHING PATTERN - Cardiovascular Exam Cardiovascular Exam: +S1, +S2 Assessment and Plan (1) Anemia Assessment & Plan: anemia of chronic disease and CKD H/H improved no iron/b12/folate deficiency Status: Acute (2) Leukocytosis Assessment & Plan: improving with antibiotics Status: Acute (3) Carcinoid tumor Assessment & Plan: outpatient treatment with primary oncologist. Status: Acute
--- NOTE | 2017-11-29 23:07 | CP.PCM.PN ---
Subjective - Date & Time of Evaluation Date of Evaluation: 11/29/17 Time of Evaluation: 07:30 - Subjective Subjective: Tyson Kraft D.O. PGY-2, Internal Medicine Resident, Dr. Wagner Service 62 year old male with a PMH of carcinoid CA of GI tract s/p colectomy with ileostomy, right hydroureter s/p nephrostomy, renal insufficiency, recurrent SBOs, and gastronomy tube presents to [facility] due to right malfunctioning nephrostomy tube. Patient was seen and examined at bedside. Still in pain but better. No fevers/chills/N/V/D/C/SOB/[place] or other anderson. No acute overnight events. Had nephrostomy changed yesterday. Objective - Vital Signs/Intake and Output Vital Signs (last 24 hours): Temp Pulse Resp BP Pulse Ox 97 F L 68 18 112/72 98 11/29/17 16:00 11/29/17 16:00 11/29/17 16:00 11/29/17 16:00 11/29/17 16:00 Intake and Output: 11/29/17 11/30/17 18:59 06:59 Intake Total 5130 Output Total 1550 Balance 3580 - Medications Medications: Current Medications Acetaminophen (Tylenol 325mg Tab) 650 mg PO Q6H PRN PRN Reason: Fever >100.4 F Acetaminophen (Tylenol 325mg Tab) 650 mg PO Q6 PRN PRN Reason: TEMP>=99.5F Acetaminophen (Tylenol 650 Mg Supp) 650 mg RC Q6H PRN PRN Reason: TEMP>=99.5F Amitriptyline HCl (Elavil) 25 mg PO HS [facility] Last Admin: 11/29/17 22:47 Dose: 25 mg Gabapentin (Neurontin) 400 mg PO TID [facility] PRN Reason: Protocol Last Admin: 11/29/17 18:28 Dose: 400 mg Hydromorphone HCl (Dilaudid) 1 mg IVP Q6H PRN PRN Reason: Pain, severe (8-10) Meropenem (Merrem Iv 1 Gm Premix) 50 mls @ 100 mls/hr IVPB Q12 [facility] PRN Reason: Protocol Last Admin: 11/29/17 22:47 Dose: 100 mls/hr Sodium Chloride (Sodium Chloride 0.9%) 1,000 mls @ 150 mls/hr IV .Q6H40M [facility] Last Admin: 11/29/17 18:27 Dose: 150 mls/hr Multivitamins/Vitamin C 10 ml/Chromium/Copper/Manganese/Zinc 1 ml/ Famotidine 40 mg/Insulin Human Regular 12 units / Amino Acids/Electrolytes/Dextrose 2, 015.12 mls @ 83.963 mls/hr IV .Q24H [facility] Last Admin: 11/29/17 18:27 Dose: 83.963 mls/hr Fat Emulsion Intravenous (Intralipid 20%) 250 mls @ 20.833 mls/hr IV Q24H [facility] Last Admin: 11/29/17 18:28 Dose: 20.833 mls/hr Midodrine (Proamatine) 2.5 mg PO TID [facility] Last Admin: 11/29/17 18:28 Dose: 2.5 mg Ondansetron HCl (Zofran Inj) 4 mg IVP Q6H PRN PRN Reason: Nausea/Vomiting Oxycodone HCl (Oxycodone Immediate Release Tab) 30 mg PO Q6H PRN PRN Reason: Pain, moderate (4-7) Last Admin: 11/29/17 06:46 Dose: 30 mg Pantoprazole Sodium (Protonix Ec Tab) 40 mg PO ACB [facility] Last Admin: 11/29/17 09:30 Dose: 40 mg - Labs Labs: 11/29/17 05:30 11/29/17 05:30 PT 13.1 SECONDS (9.4-12.5) H 11/27/17 18:32 INR 1.15 (0.93-1.08) H 11/27/17 18:32 - Constitutional Appears: No Acute Distress, Cachectic - Head Exam Head Exam: NORMAL INSPECTION - Eye Exam Eye Exam: Normal appearance - ENT Exam ENT Exam: Mucous Membranes Dry - Neck Exam Neck exam: Positive for: Normal Inspection - Respiratory Exam Respiratory Exam: Clear to Auscultation Bilateral. absent: Rales, Rhonchi, Wheezes - Cardiovascular Exam Cardiovascular Exam: Tachycardia, +S1, +S2. absent: Diastolic murmur, Gallop, Rubs, Systolic Murmur - GI/Abdominal Exam GI & Abdominal Exam: absent: Distended, Guarding, Rebound Additional comments: ileostomy and gastronomy tube in place with no surround erythema and bilious fluid - Back Exam Additional comments: right nephrostomy tube in place with clear yellow urine with slight line of red sediment on bottom - Neurological Exam Neurological exam: Alert, CN II-XII Intact, Oriented x3 - Psychiatric Exam Psychiatric exam: Normal Affect, Normal Mood - Skin Skin Exam: Dry, Intact, Pallor, Warm Assessment and Plan - Assessment and Plan (Free Text) Assessment: 62 year old male with a PMH of carcinoid CA of GI tract s/p colectomy with ileostomy, right hydroureter s/p nephrostomy, renal insufficiency, recurrent SBOs, and gastronomy tube presents to [facility] due to right malfunctioning nephrostomy tube. Plan: 1. Sepsis likely 2/2 assessment #2 Leukocytosis downtrending Afebrile Procal elevated supports bacterial origin BCx negative x2 day 2 UCx negative Continue merrem day 2 Continue hydration w/ NS @ 150 ID consulted, recs appreciated 2. Malfunctioning Nephrostomy tube Replaced by IR Now working once more Monitoring output IR and Uro following 3. PRANAV BUN and Cr downtrending Likely pre-renal etiology Nephrology consulted and recs appreciated 4. Chronic pain Holding fentanyl patch for fear of hypotension Continue PRN oxycodone Encouraged PT/OT 5. Hypotension Likely 2/2 malnutrition and multiple GI comorbidities On midodrine Monitoring 6. Poor PO intake in setting of multiple GI procedures Continue home dosed TPN 7. Normocytic normochromic anemia 2/2 anemia of chronic disease HD stable No active bleeding No deficiencies noted Monitoring with CBCs Heme/Onc consulted and following, recs appreciated 8. History of Carcinoid CA with ileostomy and g-tube Continue decompression via G tube GI and IR following GI/DVT ppx: protonix/SCDs Patient was seen and examined and case was discussed at length with attending physician
[2017-11-30] MEDS: Sodium Chloride 0.9% 1,000 ML IV SCH (00:20)
--- NOTE | 2017-11-30 01:37 | PN ---
DATE: SUBJECTIVE: Patient is in bed, in no acute distress, nontoxic. PHYSICAL EXAMINATION: VITAL SIGNS: Temperature 98, blood pressure is 116/70, respiratory rate of 16. HEENT: Unremarkable. NECK: Supple. LUNGS: Decreased breath sounds. HEART: Normal S1 and S2. ABDOMEN: Soft. LABORATORY DATA: Reveals the white count is 11,200, hemoglobin of 8, platelets of 268. Chemistries reveals a BUN of 28, creatinine of 1.2, and procalcitonin of 12.45. Urinalysis is noted. Microbiology reveals blood cultures are negative. Urine cultures are negative. ASSESSMENT AND PLAN: This is a 62-year-old male with sepsis due to right-sided pyelonephritis, associated cystitis and pneumobilia, elevated bilirubin, and status post cholecystectomy, on meropenem. Patient was seen early this morning. Patient had a right nephrostomy tube placement 2 years ago, history of gastrostomy tube placement, carcinoma of the gastrointestinal tract. Review of orders reveals carcinoid tumor . Anemia of chronic disease. Patient is currently on meropenem. We will check on the final culture results. Andrew Ye MD
--- NOTE | 2017-11-30 01:58 | PN ---
DATE: 11/29/2017 SUBJECTIVE: Patient is seen lying in the bed in room 366, bed 1. Patient is seen lying in the bed watching TV. Patient does not appear to be in any distress, but patient is requesting increasing the pain medication doses for back pain, abdominal pain etc. Patient's overnight nurse's notes were reviewed. No adverse events were noted. Patient underwent change of the right-sided nephrostomy by Dr. Tim Calhoun. PHYSICAL EXAMINATION: VITAL SIGNS: T-max 98.1; heart rate 65, 76, 70; blood pressure in the last 24 hours 99/63, 105/70, 107/71, 116/71; respiration 18; O2 sat 98% to 100%. HEENT: Head examination normocephalic, atraumatic. HEENT examination shows pinkish pale conjunctivae. Dry oral mucosa. No neck rigidity. CHEST: Kyphosis. LUNGS: Shows occasional upper lung field rhonchi. CARDIOVASCULAR: Examination S1, S2, regular rhythm. Questionable soft systolic murmur at left sternal border, right second intercostal space. ABDOMEN: Shows positive gastrostomy, positive ileostomy, positive right flank dressing noted with new percutaneous nephrostomy noted. GENITALIA: Male. RECTAL: Examination is deferred. MUSCULOSKELETAL: Shows a body mass index of 19.5. Patient is presently getting TPN. Gait examination is not tested. DIAGNOSTICS: On 11/29, WBC 11.2 dropped from 28.3, hemoglobin/hematocrit 8.9 and 27.3, platelet 268. Granulocytes 69. Sodium 141, potassium 3.8, chloride 107, CO2 30, anion gap 7, BUN 28, creatinine 1.2, GRF greater than 60, glucose 114, calcium 9.2, phosphorus 2.6, magnesium 2.2, alk phos 493, albumin 2.5. Procalcitonin level 12.45. B12, folate is within normal limit. Blood and urine cultures are negative so far. Blood type is O+. IMPRESSION AND PLAN: 1. Possible sepsis secondary to right-sided pyelonephritis with possible cystitis. 2. Transaminitis with hyperbilirubinemia and pneumobilia. 3. Carcinoid tumor of the gastrointestinal tract. 4. Status post subtotal colectomy and ileostomy of the left anterior abdominal wall. 5. Feeding dysfunction with status post gastrostomy tube placement. 6. Status post right percutaneous nephrostomy tube placement and replacement. 7. Status post right percutaneous nephrostomy tube malfunction. 8. Transient tachycardia. 9. Asymptomatic hypotension. 10. Deconditioning. 11. Gait dysfunction. 12. Slow-resolving leukocytosis with granulocytosis and bandemia. 13. Lymphocytopenia. 14. Elevated reticulocyte count of 2.0. 15. Iron-deficiency normocytic anemia. 16. Hyperbilirubinemia. 17. Resolving acute kidney injury. 18. Hypokalemia. 19. Mild prerenal kidney injury. 20. Protein malnutrition. 21. Hypoalbuminemia. 22. Hyperprocalcitoninemia. 23. Proteinuria, microscopic hematuria, pyuria, bacteriuria. 24. O+ blood type. 25. Status post gastrostomy tube placement. 26. Right upper chest Port-A-Cath placement. 27. Status post right-sided percutaneous nephrostomy tube change. 28. Anemia of chronic disease. 29. Gastrointestinal carcinoid tumor. 30. Right hydroureter with right-sided pyelonephritis and sepsis. 31. Chronic kidney disease, stage III, with obstructive uropathy. 32. Chronic bowel obstruction with history of intestinal decompression using gastrostomy tube. 33. History of chronic home hyperalimentation. 34. Pain syndrome of malignancy. 35. History of chronic bowel obstruction. 36. Pneumobilia secondary to prior sphincterotomy or cholecystectomy. 37. Nonvisualized right distal ureter. 38. Nonobstructing right-sided nephrolithiasis. 39. Left renal duplicated collecting system. 40. Appendectomy. 41. Questionable cystitis with moderately and diffusely thickened urinary bladder. 42. Cachexia of malignancy. 43. Status post chemotherapy. 44. Right upper chest Port-A-Cath placement. Plan at this time, patient has been ordered repeat labs. Patient's final microbiology results are pending. CURRENT CONSULTATIONS: 1. Gastroenterology. 2. Hematology/Oncology. 3. Infectious Disease. 4. Nephrology. 5. Urology. 6. Interventional Radiology. CURRENT MEDICATIONS: Patient is on Clinimix TPN at 83 mL an hour. Patient's Dilaudid is increased to 1 mg IV every 6 p.r.n., Elavil 25 mg at bedtime. Patient is on Intralipid IV TPN. Patient is on meropenem 1 g IV every 12, Neurontin 400 three times a day, oxycodone 30 mg every 6 p.r.n., midodrine 2.5 mg three times a day, Protonix 40 mg daily, IV fluid 0.9 normal saline at 150 mL an hour, Tylenol every 6 p.r.n. suppository or p.o., Zofran 4 mg IV every 6 p.r.n. Patient is on liquid diet. Patient has been ordered head of the bed at 30 degrees, out of bed, SCDs, JOESPH stockings. Occupational therapy, physical therapy ordered. Patient seen by physical therapist yesterday. Patient was not a candidate for skilled PT. Patient's case referred to Mohs Surgeon/General Dermatologist. Discharge recommendation is home with no services when medically cleared. Patient has been updated about his condition, diagnosis, treatment plan, management plan and the patient was explained about all the diagnostic test results and recommendation by all physicians involved in the care of the patient at length and all questions concerned answered. Patient is also advised that overall the patient's prognosis is guarded to poor, which he acknowledged and understood. Dictated and electronically signed, not read. Sergio Wagner MD
[2017-11-30] MEDS: HYDROmorphone 0.5 mg/0.5 ml ISec IVP PRN ×2 (04:24→10:12)
[2017-11-30 06:47] LABS: BASO # 0.03 K/mm3 (0.0-2.0); BASO % 0.4 % (0.0-3.0); EOS # 0.2 (0.0-0.7); EOS % 2.6 % (1.5-5.0); GRAN # 4.81 (1.4-6.5); GRAN % 63.7 % (50.0-68.0); HEMOGLOBIN 8.8 g/dL (14.0-18.0); LYMPH # 1.3 (1.2-3.4); LYMPH % 17.1 % (22.0-35.0); MEAN CELL VOLUME 93.4 fl (80.0-105.0); MEAN CORPUSCULAR HEMOGLOBIN 30.4 pg (25.0-35.0); MEAN CORPUSCULAR HGB CONC 32.6 g/dl (31.0-37.0); MEAN PLATELET VOLUME 12.3 fl (7.0-11.0); MONO # 1.2 (0.1-0.6); MONO % 16.2 % (1.0-6.0); RBC 2.89 10^6/uL (3.5-6.1); WHITE BLOOD COUNT 7.6 10^3/ul (4.5-11.0)
[2017-11-30 07:12] LABS: ALB/GLOB RATIO 0.7 (1.1-1.8); ALBUMIN 2.3 g/dL (3.0-4.8); ALT/SGPT 40 U/L (7-56); AST/SGOT 46 U/L (17-59); BLOOD UREA NITROGEN 21 mg/dL (7-21); CALCIUM 8.7 mg/dL (8.4-10.5); GFR AFRICAN-AMERICAN > 60; GFR NON-AFRICAN AMERICAN > 60
[2017-11-30] MEDS: Pantoprazole 40 mg EC Tab PO SCH (08:03)
[2017-11-30] MEDS: Meropenem IV 1 gm in NS 50 ML IVPB SCH ×2 (10:01→21:38)
--- NOTE | 2017-11-30 10:20 | CP.PCM.PN ---
Subjective - Date & Time of Evaluation Date of Evaluation: 11/30/17 Time of Evaluation: 10:00 - Subjective Subjective: Medicine Note for Dr. Wagner Patient seen and examined at bedside. No acute event overnight. Patent states that he is getting abdominal pain. Admits to nausea. Denies any emesis. He is tolerating liquids and receiving TPN. Patient has no other complaints at this time. Objective - Vital Signs/Intake and Output Vital Signs (last 24 hours): Temp Pulse Resp BP Pulse Ox 98.7 F 84 96 H 115/73 98 11/30/17 06:00 11/30/17 06:00 11/30/17 06:00 11/30/17 06:00 11/30/17 06:00 Intake and Output: 11/30/17 11/30/17 06:59 18:59 Intake Total 600 Output Total 2850 Balance -2250 - Medications Medications: Current Medications Acetaminophen (Tylenol 325mg Tab) 650 mg PO Q6H PRN PRN Reason: Fever >100.4 F Acetaminophen (Tylenol 325mg Tab) 650 mg PO Q6 PRN PRN Reason: TEMP>=99.5F Acetaminophen (Tylenol 650 Mg Supp) 650 mg RC Q6H PRN PRN Reason: TEMP>=99.5F Amitriptyline HCl (Elavil) 25 mg PO HS [facility] Last Admin: 11/29/17 22:47 Dose: 25 mg Gabapentin (Neurontin) 400 mg PO TID [facility] PRN Reason: Protocol Last Admin: 11/30/17 10:02 Dose: 400 mg Hydromorphone HCl (Dilaudid) 1 mg IVP Q6H PRN PRN Reason: Pain, severe (8-10) Last Admin: 11/30/17 10:12 Dose: 1 mg Meropenem (Merrem Iv 1 Gm Premix) 50 mls @ 100 mls/hr IVPB Q12 TAMMY PRN Reason: Protocol Last Admin: 11/30/17 10:01 Dose: 100 mls/hr Sodium Chloride (Sodium Chloride 0.9%) 1,000 mls @ 150 mls/hr IV .Q6H40M [facility] Last Admin: 11/30/17 00:20 Dose: 150 mls/hr Multivitamins/Vitamin C 10 ml/Chromium/Copper/Manganese/Zinc 1 ml/ Famotidine 40 mg/Insulin Human Regular 12 units / Amino Acids/Electrolytes/Dextrose 2, 015.12 mls @ 83.963 mls/hr IV .Q24H [facility] Last Admin: 11/29/17 18:27 Dose: 83.963 mls/hr Fat Emulsion Intravenous (Intralipid 20%) 250 mls @ 20.833 mls/hr IV Q24H [facility] Last Admin: 11/29/17 18:28 Dose: 20.833 mls/hr Potassium Chloride (Potassium Chloride 20 Meq/100 Ml) 20 meq in 100 mls @ 50 mls/hr IVPB Q2H [facility] Stop: 11/30/17 11:44 Last Admin: 11/30/17 08:02 Dose: 50 mls/hr Midodrine (Proamatine) 2.5 mg PO TID [facility] Last Admin: 11/30/17 10:03 Dose: 2.5 mg Ondansetron HCl (Zofran Inj) 4 mg IVP Q6H PRN PRN Reason: Nausea/Vomiting Last Admin: 11/30/17 06:28 Dose: 4 mg Oxycodone HCl (Oxycodone Immediate Release Tab) 30 mg PO Q6H PRN PRN Reason: Pain, moderate (4-7) Last Admin: 11/29/17 06:46 Dose: 30 mg Pantoprazole Sodium (Protonix Ec Tab) 40 mg PO ACB [facility] Last Admin: 11/30/17 08:03 Dose: 40 mg - Labs Labs: 11/30/17 06:30 11/30/17 06:30 PT 13.1 SECONDS (9.4-12.5) H 11/27/17 18:32 INR 1.15 (0.93-1.08) H 11/27/17 18:32 - Constitutional Appears: No Acute Distress - Head Exam Head Exam: ATRAUMATIC, NORMOCEPHALIC - Eye Exam Eye Exam: Normal appearance - ENT Exam ENT Exam: Mucous Membranes Moist - Respiratory Exam Respiratory Exam: Clear to Ausculation Bilateral, NORMAL BREATHING PATTERN - Cardiovascular Exam Cardiovascular Exam: REGULAR RHYTHM, +S1, +S2 - GI/Abdominal Exam GI & Abdominal Exam: Soft, Tenderness, Normal Bowel Sounds. 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 Plan: 1. Sepsis Leukocytosis downtrending Afebrile Procal elevated supports bacterial origin BCx negative x2 UCx negative Continue merrem NS @ 150 ID consulted, recs appreciated 2. Malfunctioning Nephrostomy tube (resolved) Replaced by IR Monitoring output IR and Urology following 3. PRANAV BUN and Cr downtrending Likely pre-renal etiology Nephrology consulted and recs appreciated 4. Chronic pain Holding fentanyl patch for fear of hypotension Continue PRN oxycodone Encouraged PT/OT 5. Hypotension Likely 2/2 malnutrition and multiple GI comorbidities midodrine Monitor BP 6. Poor PO intake in setting of multiple GI procedures Continue TPN 7. Normocytic normochromic anemia 2/2 anemia of chronic disease Monitor hgb Heme/Onc consulted and following, recs appreciated 8. History of Carcinoid CA with ileostomy and g-tube Continue decompression via G tube GI and IR following GI/DVT ppx: protonix/SCDs Discussed with Dr. Kristy Padilla PGY1
--- NOTE | 2017-11-30 13:41 | PN ---
DATE: 11/30/2017 SUBJECTIVE: The patient is seen in room 366, bed 1. The patient is again seen lying in the bed. Since hospitalization, I have not seen the patient out of bed and the patient has always been lying in the bed. I have encouraged multiple time to the patient that he should be out of bed ambulating, but the patient prefers to lie in the bed. The patient was explained about the risk and consequences of continuous immobilization including the risk of atelectasis, pneumonia and hospital-acquired infection which the patient acknowledged and understand. Overnight nurse's notes were reviewed. The patient was found to be alert, awake, oriented x3. No adverse events documented. No pain was documented. No shortness of breath was documented. PHYSICAL EXAMINATION: VITAL SIGNS: T-max 97.9; pulse 75, 76; blood pressure 112/72, 116/86; respirations 18; O2 sat 98%-100%. HEENT: Head: Normocephalic, atraumatic. HEENT examination shows pinkish pale conjunctivae. Anicteric sclerae. No oropharyngeal lesion. No neck rigidity. CHEST: Kyphosis. CARDIOVASCULAR: S1, S2. Regular rhythm. Questionable soft systolic murmur at left sternal border, right second intercostal space. LUNGS: No rales, crackles or wheezing. ABDOMEN: Soft with positive ileostomy, positive gastrostomy. GENITALIA: Male. RECTAL: Deferred. Positive right percutaneous nephrostomy noted, which is draining urine. The patient denies any flank pain or back pain. EXTREMITIES: Lower extremities shows no pitting edema, no calf tenderness, no Homans' signs. Positive right upper chest Port-A-Cath noted. NEUROLOGIC: The patient is alert, awake, oriented x3. Cranial nerves II through XII grossly intact. MUSCULOSKELETAL: Shows a body mass index of 19.5. DIAGNOSTICS: On 11/30, WBC 7.6, down from 28.3; hemoglobin/hematocrit 8.8 and 27, platelet 260, granulocytes is 64%. Sodium 140, potassium 3.3, chloride 108, CO2 25, anion gap 10, BUN 21, creatinine 1, GFR greater than 60, glucose 103, calcium 8.7, phosphorus 2.7, magnesium 1.9, alkaline phosphatase 636, total protein 5.5, albumin 2.3. Blood and urine cultures are negative. Blood type O positive. IMPRESSION: 1. Sepsis secondary to right-sided pyelonephritis and cystitis and pneumobilia. 2. Status post cholecystectomy. 3. Feeding dysfunction. 4. Status post right percutaneous nephrostomy tube placement. 5. Gastrointestinal tract carcinoid tumor. 6. Anemia of chronic disease. 7. Midodrine requiring hypotension. 8. Cachexia. 9. Cachexia of malignancy. 10. Pain syndrome of malignancy. 11. Leukocytosis with granulocytosis and bandemia. 12. Elevated reticulocytes count. 13. Normocytic anemia. 14. Hypokalemia. 15. Prerenal kidney injury. 16. Hyperbilirubinemia. 17. Protein malnutrition and hyperalbuminemia. 18. Hyperprocalcitoninemia. 19. Transaminitis. 20. Proteinuria. 21. Microscopic hematuria. 22. Pyuria. 23. Bacteriuria. 24. O positive blood type. 25. Pneumobilia, probably secondary to sphincterotomy versus cholecystectomy. 26. Non-visualized gallbladder. 27. Moderate right hydroureter involving the proximal and mid right ureter. 28. Non-visualized right distal ureter. 29. Right-sided percutaneous nephrostomy. 30. Non-obstructing right-sided nephrolithiasis. 31. Left renal duplicated collecting system. 32. Subtotal colectomy with rectosigmoid stump in the posterior pelvis. 33. Ileostomy of the left anterior pelvic wall. 34. Appendectomy. 35. Possible cystitis with urinary bladder wall diffuse thickening. 36. Status post right percutaneous nephrostomy tube change secondary to right percutaneous nephrostomy malfunction. 37. Anemia of chronic disease. 38. Narcotic dependent pain syndrome of malignancy. 39. Feeding dysfunction. 40. Neuropathy. 41. Severe deconditioning and cachexia. 42. Status post gastrostomy and ileostomy. 43. Chronic bowel obstruction requiring intestinal decompression with gastrostomy tube placement. 44. Chronic home hyperalimentation. 45. Status post right percutaneous nephrostomy malfunction. PLAN: At this time, the patient has been ordered repeat labs. CURRENT CONSULTATIONS: 1. Gastroenterology. 2. Hematology/Oncology. 3. Infectious Disease. 4. Nephrology. 5. Urology. 6. Interventional Radiology. We are still awaiting recommendations from Urology. Recommendation from Gastroenterology, Hematology/Oncology, Infectious Disease and Nephrology noted. CURRENT MEDICATIONS: Clinimix TPN 83 mL an hour, Dilaudid 1 mg IV every 6 hours p.r.n., Elavil 25 at bedtime, Intralipid 20% 250 mL daily, meropenem 1 g IV every 12, Neurontin 400 three times a day, oxycodone 30 mg every 6 hours p.r.n. The patient was given potassium riders 20 mEq x2, 2.5 mg three times a day, Protonix 40 mg daily, IV fluid 0.9 normal saline at 150 mL an hour, Tylenol 650 mg p.o. or suppository every 6 hours p.r.n. Zofran 4 mg IV every 6 p.r.n. Liquid diet. Out of bed to chair. JOESPH ventura, SCDs, occupational therapy, physical therapy. The patient's overall prognosis is guarded to poor. The patient is aware of that. We are awaiting for further recommendations by Infectious Disease regarding the duration of IV antibiotics. Once duration of IV antibiotics was determined, the patient will be considered for further disposition, which has been explained to the patient. Dictated and electronically signed, not read. Sergio Wagner MD
[2017-11-30] MEDS: oxyCODONE 30 mg Immediate Release Tab PO PRN (14:28)
--- NOTE | 2017-11-30 16:09 | CP.PCM.PN ---
Subjective - Date & Time of Evaluation Date of Evaluation: 11/30/17 Time of Evaluation: 16:08 - Subjective Subjective: Nephrology Consultation: Assessment: Stable PRANAV resolved sepsis with ? pyelonephritis and Rt hydronephrosis: improved Hypokalemia, Anemia Chronic Kidney Disease (N18.3) Stage 3, obstructive uropathy carcinoma of GI tract S/P colectomy and ileostomy, S/P Rt nephrostomy tube placement 2 years ago, history of G-tube placement Plan No acute need for renal replacement therapy at this time. renal function improved Maintain hemodynamics stable. Patient not on ACEI/ARB due to PRANAV and low BP Monitor Input/Output, daily weights and renal function with basic metabolic panel d/c IV iron considering concerns for infection. supplements electrolytes as needed continue with IVF as normal saline keep I/O balanced ID, , heme and IR consulted Dose meds/antibiotics for reduced GFR. Avoid fleets enema/magnesium based laxatives. Avoid nephrotoxins/NSAIDs/ iodinated contrast (unless needed emergently) Glycemic control Further work up/management as per primary team Thanks for allowing me to participate in care of your patient. Will sign off and follow PRN basis. Please call if any Qs. Dr Eric Oseguera Office: [phone] Reason for consult: CKD, PRANAV HPI: Pt is a 62 M with hx of carcinoma of GI tract S/P colectomy and ileostomy , S/P Rt nephrostomy tube placement 2 years ago, history of G-tube placement presented with c/o decreased output from the nephrostomy tube. he says it was changed last week. pt also has CKD stage 3 for last 2-3 years with baseline cr 1.5-1.8. he c/o pain Rt flankand back pain as well Denies OTC/herbal meds or NSAIDs No recent iodinated contrast exposure. Noted obvious episodes of low BP. ROS: Cardiovascular: No chest pain. Pulmonary: No shortness of breath Gastrointestinal: denies abdominal pain No nausea. No vomiting. Genitourinary: No pain while urinating. Denies blood in urine. reports improved output from nephrostomy tube s/p intervention All other negative Physical Examination: General Appearance: Comfortable, in no acute respiratory distress, co-operative . Vitals reviewed and noted as below Head; Atraumatic, normocephalic ENT: no ulcers no thrush. Tongue is midline. Oropharynx: no rash or ulcers. EYES: Pupils are equal, round and reactive to light accommodation. Eye muscles and extraocular movement intact. Sclera is anicteric. Neck; supple no lymphadenopathy, no thyromegaly or bruit Lungs: Normal respiratory rate/effort. Breath sounds bilateral equal and clear Heart: Normal rate. s1s2 normal. No rub or gallop. Extremities: no edema. No varicose veins Neurological: Patient is alert, awake and oriented to person, place and time. No focal deficit. Strength bilateral appropriate and equal Skin: Warm and dry. Normal turgor. No rash. Palpitation: Normal elasticity for age Abdomen: Abdomen is soft. Bowel sounds +. There is no abdominal tenderness, no guarding/rigidity no organomegaly. has iletostomy and G tube Psych: normal insight and normal affect/mood MSK: no joint tenderness or swelling. Digits and nails normal, no deformity : kidney or bladder not palpable. has Rt nephrostomy tube draining urine Labs/imaging reviewed. Past medical history, past surgical history, family history, social history, allergy reviewed and noted as below Family hx: no hx of CKD. Rest non-contributory Objective - Vital Signs/Intake and Output Vital Signs (last 24 hours): Temp Pulse Resp BP Pulse Ox 98.7 F 84 96 H 115/73 98 11/30/17 06:00 11/30/17 06:00 11/30/17 06:00 11/30/17 06:00 11/30/17 06:00 Intake and Output: 11/30/17 11/30/17 06:59 18:59 Intake Total 600 Output Total 2850 Balance -2250 - Medications Medications: Current Medications Acetaminophen (Tylenol 325mg Tab) 650 mg PO Q6H PRN PRN Reason: Fever >100.4 F Acetaminophen (Tylenol 325mg Tab) 650 mg PO Q6 PRN PRN Reason: TEMP>=99.5F Acetaminophen (Tylenol 650 Mg Supp) 650 mg RC Q6H PRN PRN Reason: TEMP>=99.5F Amitriptyline HCl (Elavil) 25 mg PO HS [facility] Last Admin: 11/29/17 22:47 Dose: 25 mg Gabapentin (Neurontin) 400 mg PO TID [facility] PRN Reason: Protocol Last Admin: 11/30/17 14:18 Dose: 400 mg Hydromorphone HCl (Dilaudid) 1 mg IVP Q6H PRN PRN Reason: Pain, severe (8-10) Meropenem (Merrem Iv 1 Gm Premix) 50 mls @ 100 mls/hr IVPB Q12 TAMMY PRN Reason: Protocol Last Admin: 11/30/17 10:01 Dose: 100 mls/hr Sodium Chloride (Sodium Chloride 0.9%) 1,000 mls @ 150 mls/hr IV .Q6H40M [facility] Last Admin: 11/30/17 00:20 Dose: 150 mls/hr Multivitamins/Vitamin C 10 ml/Chromium/Copper/Manganese/Zinc 1 ml/ Famotidine 40 mg/Insulin Human Regular 12 units / Amino Acids/Electrolytes/Dextrose 2, 015.12 mls @ 83.963 mls/hr IV .Q24H [facility] Last Admin: 11/29/17 18:27 Dose: 83.963 mls/hr Fat Emulsion Intravenous (Intralipid 20%) 250 mls @ 20.833 mls/hr IV Q24H [facility] Last Admin: 11/29/17 18:28 Dose: 20.833 mls/hr Midodrine (Proamatine) 2.5 mg PO TID [facility] Last Admin: 11/30/17 14:18 Dose: 2.5 mg Ondansetron HCl (Zofran Inj) 4 mg IVP Q6H PRN PRN Reason: Nausea/Vomiting Last Admin: 11/30/17 15:55 Dose: 4 mg Oxycodone HCl (Oxycodone Immediate Release Tab) 30 mg PO Q6H PRN PRN Reason: Pain, moderate (4-7) Last Admin: 11/30/17 14:28 Dose: 30 mg Pantoprazole Sodium (Protonix Ec Tab) 40 mg PO ACB [facility] Last Admin: 11/30/17 08:03 Dose: 40 mg - Labs Labs: 11/30/17 06:30 11/30/17 06:30 PT 13.1 SECONDS (9.4-12.5) H 11/27/17 18:32 INR 1.15 (0.93-1.08) H 11/27/17 18:32
[2017-11-30] MEDS: HYDROmorphone 1 mg/ml ISec IVP PRN ×2 (16:42→22:01)
[2017-11-30] MEDS: [UNRECOGNIZED DRUG - NUTRITION] IV SCH (17:54)
[2017-11-30] MEDS: Fat Emulsion 20% IV 250 ML IV SCH (17:54)
--- NOTE | 2017-11-30 22:37 | PN ---
DATE: 11/30/2017 SUBJECTIVE: The patient is in bed, was seen earlier this morning in room 366, bed 1. No fevers and chills. PHYSICAL EXAMINATION: VITAL SIGNS: Temperature is 97, T-max is 100.4, blood pressure is 115/70. HEENT: Unremarkable. NECK: Supple. LUNGS: Decreased breath sounds. HEART: Normal S1, S2. ABDOMEN: Soft. LABORATORY DATA: Reveals a white count of 7.6, hemoglobin of 8, platelets of 260. BUN of 21, creatinine of 1, procalcitonin is noted. Microbiology reveals the blood cultures negative. Urine cultures are negative. ASSESSMENT AND PLAN: A 62-year-old with sepsis due to right-sided pyelonephritis associated with cystitis and pneumobilia, elevated bilirubin, status post cholecystectomy, on meropenem and patient had a right nephrostomy tube placement 3 years ago, history of gastrostomy tube placement, carcinoma of gastrointestinal tract and thus far the blood cultures are negative, the urine cultures are negative. White count is 7.6. Patient did have a fever earlier today, on meropenem. Dr. Oseguera's note is reviewed. We will follow with . Andrew Ye MD
[2017-12-01] MEDS: Sodium Chloride 0.9% 1,000 ML IV SCH ×2 (01:48→09:56)
[2017-12-01] MEDS: oxyCODONE 30 mg Immediate Release Tab PO PRN ×3 (05:34→23:34)
[2017-12-01 06:28] LABS: BASO # 0.05 K/mm3 (0.0-2.0); BASO % 0.7 % (0.0-3.0); EOS # 0.3 (0.0-0.7); EOS % 3.8 % (1.5-5.0); GRAN # 4.17 (1.4-6.5); GRAN % 61.3 % (50.0-68.0); HEMOGLOBIN 8.8 g/dL (14.0-18.0); LYMPH # 1.3 (1.2-3.4); LYMPH % 19.1 % (22.0-35.0); MEAN CELL VOLUME 93.8 fl (80.0-105.0); MEAN CORPUSCULAR HEMOGLOBIN 30.2 pg (25.0-35.0); MEAN CORPUSCULAR HGB CONC 32.2 g/dl (31.0-37.0); MEAN PLATELET VOLUME 12.3 fl (7.0-11.0); MONO % 15.1 % (1.0-6.0); RBC 2.91 10^6/uL (3.5-6.1); WHITE BLOOD COUNT 6.8 10^3/ul (4.5-11.0)
[2017-12-01 07:10] LABS: ALB/GLOB RATIO 0.7 (1.1-1.8); ALBUMIN 2.2 g/dL (3.0-4.8); ALT/SGPT 48 U/L (7-56); AST/SGOT 66 U/L (17-59); BILIRUBIN,DIRECT 1.3 mg/dL (0.0-0.4); BLOOD UREA NITROGEN 19 mg/dL (7-21); CALCIUM 8.8 mg/dL (8.4-10.5); GFR AFRICAN-AMERICAN > 60; GFR NON-AFRICAN AMERICAN > 60
--- NOTE | 2017-12-01 07:28 | CP.PCM.PN ---
Subjective - Date & Time of Evaluation Date of Evaluation: 12/01/17 Time of Evaluation: 07:20 - Subjective Subjective: Medicine Note for Dr. Wagner Patient seen and examined at bedside. No acute event overnight. Patent states that he isstill experiencing abdominal pain and nausea. Denies any emesis. Patient also reports edema and tenderness of right upper extremity. He is tolerating liquids and receiving TPN. He spiked a fever yesterday afternoon. Cultures were taken. Patient has no other complaints at this time. Objective - Vital Signs/Intake and Output Vital Signs (last 24 hours): Temp Pulse Resp BP Pulse Ox 100.4 F H 87 20 128/87 98 11/30/17 16:35 11/30/17 16:00 11/30/17 16:00 11/30/17 16:00 11/30/17 16:00 Intake and Output: 12/01/17 12/01/17 06:59 18:59 Intake Total 1020 Output Total 3030 -2009 - Medications Medications: Current Medications Acetaminophen (Tylenol 325mg Tab) 650 mg PO Q6H PRN PRN Reason: Fever >100.4 F Acetaminophen (Tylenol 325mg Tab) 650 mg PO Q6 PRN PRN Reason: TEMP>=99.5F Last Admin: 11/30/17 16:35 Dose: 650 mg Acetaminophen (Tylenol 650 Mg Supp) 650 mg RC Q6H PRN PRN Reason: TEMP>=99.5F Amitriptyline HCl (Elavil) 25 mg PO HS [facility] Last Admin: 11/30/17 21:39 Dose: 25 mg Gabapentin (Neurontin) 400 mg PO TID [facility] PRN Reason: Protocol Last Admin: 11/30/17 17:55 Dose: 400 mg Hydromorphone HCl (Dilaudid) 1 mg IVP Q6H PRN PRN Reason: Pain, severe (8-10) Last Admin: 11/30/17 22:01 Dose: 1 mg Meropenem (Merrem Iv 1 Gm Premix) 50 mls @ 100 mls/hr IVPB Q12 [facility] PRN Reason: Protocol Last Admin: 11/30/17 21:38 Dose: 100 mls/hr Sodium Chloride (Sodium Chloride 0.9%) 1,000 mls @ 150 mls/hr IV .Q6H40M [facility] Last Admin: 12/01/17 01:48 Dose: 150 mls/hr Multivitamins/Vitamin C 10 ml/Chromium/Copper/Manganese/Zinc 1 ml/ Famotidine 40 mg/Insulin Human Regular 12 units / Amino Acids/Electrolytes/Dextrose 2, 015.12 mls @ 83.963 mls/hr IV .Q24H [facility] Last Admin: 11/30/17 17:54 Dose: 83.963 mls/hr Fat Emulsion Intravenous (Intralipid 20%) 250 mls @ 20.833 mls/hr IV Q24H [facility] Last Admin: 11/30/17 17:54 Dose: 20.833 mls/hr Midodrine (Proamatine) 2.5 mg PO TID [facility] Last Admin: 11/30/17 17:55 Dose: 2.5 mg Ondansetron HCl (Zofran Inj) 4 mg IVP Q6H PRN PRN Reason: Nausea/Vomiting Last Admin: 11/30/17 15:55 Dose: 4 mg Oxycodone HCl (Oxycodone Immediate Release Tab) 30 mg PO Q6H PRN PRN Reason: Pain, moderate (4-7) Last Admin: 12/01/17 05:34 Dose: 30 mg Pantoprazole Sodium (Protonix Ec Tab) 40 mg PO ACB [facility] Last Admin: 11/30/17 08:03 Dose: 40 mg - Labs Labs: 12/01/17 06:00 12/01/17 06:00 PT 13.1 SECONDS (9.4-12.5) H 11/27/17 18:32 INR 1.15 (0.93-1.08) H 11/27/17 18:32 - Constitutional Appears: No Acute Distress - Head Exam Head Exam: ATRAUMATIC, NORMOCEPHALIC - Eye Exam Eye Exam: Normal appearance - ENT Exam ENT Exam: Mucous Membranes Moist - Respiratory Exam Respiratory Exam: Clear to Ausculation Bilateral, NORMAL BREATHING PATTERN - Cardiovascular Exam Cardiovascular Exam: REGULAR RHYTHM, +S1, +S2 - GI/Abdominal Exam GI & Abdominal Exam: Soft, Tenderness (mild), Normal Bowel Sounds. absent: Distended, Firm, Guarding, Rigid, Rebound Additional comments: ileostomy pink and patent with brownish liquid stool G tube in place being drained into pickering bag with bilious output - Extremities Exam Extremities Exam: Normal Capillary Refill, Tenderness (RUE) Additional comments: RUE: with 2 x 2 cm edematous are right above antecubital fossa, TTP - Back Exam Additional comments: nephrostomy tube in place draining yellow urine - Neurological Exam Neurological Exam: Alert, Awake, Oriented x3 - Psychiatric Exam Psychiatric exam: Normal Affect, Normal Mood - Skin Skin Exam: Dry, Warm Assessment and Plan - Assessment and Plan (Free Text) Assessment: 62 year old male with a PMH of 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 Plan: 1. Sepsis Leukocytosis downtrending Afebrile Procal elevated supports bacterial origin BCx negative x2 UCx negative Continue merrem NS @ 150 ID consulted, recs appreciated 2. Right upper extremity edema/tenderness Suspected phlebitis history of malignancy so at risk for hypercoagulability f/u upper ext doppler Warm compresses 3. PRANAV BUN and Cr downtrending Nephrology consulted and recs appreciated NS @ 150 Monitor and replete electrolytes as needed 4. Chronic pain Holding fentanyl patch for fear of hypotension Continue PRN oxycodone Encouraged PT/OT 5. Hypotension Likely 2/2 malnutrition and multiple GI comorbidities midodrine Monitor BP 6. Poor PO intake in setting of multiple GI procedures Continue TPN 7. Normocytic normochromic anemia 2/2 anemia of chronic disease Monitor hgb Heme/Onc consulted and following, recs appreciated 8. History of Carcinoid CA with ileostomy and g-tube Continue decompression via G tube GI and IR following 9. Malfunctioning Nephrostomy tube (resolved) Replaced by IR Monitoring output IR and Urology following GI/DVT ppx: protonix/SCDs Discussed with Dr. Kristy aPdilla PGY1
[2017-12-01] MEDS: HYDROmorphone 1 mg/ml ISec IVP PRN ×3 (07:53→21:25)
--- NOTE | 2017-12-01 09:40 | RAD ---
HISTORY: FEVER COMPARISON: No prior. TECHNIQUE: Chest PA and lateral FINDINGS: LUNGS: No active pulmonary disease. PLEURA: No significant pleural effusion identified. No pneumothorax apparent. CARDIOVASCULAR: Normal. OSSEOUS STRUCTURES: No significant abnormalities. VISUALIZED UPPER ABDOMEN: Normal. OTHER FINDINGS: None. IMPRESSION: No active disease.
[2017-12-01] MEDS: Meropenem IV 1 gm in NS 50 ML IVPB SCH ×2 (09:53→21:27)
[2017-12-01] MEDS: Pantoprazole 40 mg EC Tab PO SCH (09:55)
--- NOTE | 2017-12-01 10:36 | PN ---
DATE: 12/01/2017 SUBJECTIVE: The patient is again seen in room 366 bed 1. The patient was again seen lying in the bed. Overnight nurse's notes were reviewed. No adverse events documented. The patient was found to be without any adverse issues. Thirteen system review was done, pertinent positive and negative dictated above. OBJECTIVE VITAL SIGNS: T-max is 100.4, pulse 84; blood pressure 105/71, 98/76, 115/73. Pulse ox 98%. GENERAL: The patient is seen lying in the bed. The patient is alert, awake, responsive. Does not appear to be in any distress. HEENT: Head examination: Normocephalic, atraumatic. HEENT examination shows pale conjunctivae. Dry oral mucosa. No neck rigidity. CHEST: Kyphosis. Positive right upper chest Port-A-Cath noted. LUNGS: Shows occasional rhonchi in the upper lung jhaveri bilaterally. CARDIOVASCULAR: S1, S2. Regular rhythm. Questionable soft systolic murmur, left sternal border, right second intercostal space. ABDOMEN: Soft. Positive right flank area, percutaneous nephrostomy. Positive ileostomy. Positive gastrostomy. GENITALIA: Male. RECTAL: Deferred. EXTREMITIES: Shows no pitting edema, no calf tenderness. No Homans' signs. NEUROLOGIC: The patient is alert, awake, responsive, is able to move upper and lower extremity without assistance. Gait examination is not tested. MUSCULOSKELETAL: Shows body mass index of 19.5 Cranial nerves II-XII limited. Gait examination could not be tested. The patient is seen by Physical Therapy. The patient was not found to be a candidate for PT. DIAGNOSTICS: December 01, 2017, WBC is down to 6.8 from 28.3, hemoglobin/hematocrit is still low 8.8 and 27.3, platelet count 273,000. CMP, LFTs reviewed. Abnormal chemistry shows potassium 3.5, total bili 1.8, direct bili 1.3, AST 66, alkaline phosphatase is 601, albumin 2.2, total protein 5.4. Procalcitonin level 12.45. IMPRESSION AND PLAN 1. Sepsis, probably secondary to right-sided pyelonephritis and cystitis secondary to malfunctioning right percutaneous nephrostomy. 2. Right hydroureter. 3. Right-sided nonobstructing nephrolithiasis. 4. New fever. 5. Persistent refractory normocytic iron-deficiency anemia. 6. Hypotension. 7. Hyperprocalcitoninemia. 8 Hypokalemia. 9. Chronic hyperalimentation-dependent malnutrition. 10. Feeding dysfunction. 11. Hyperbilirubinemia. 12. Transaminitis. 13. Moderate protein malnutrition and moderate hypoalbuminemia 14. Chronic bowel obstruction. 15. History of carcinoid tumor of the gastrointestinal tract. 16. 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 17 Cachexia of malignancy. 18. Questionable neuropathy. PLAN: At this time, the patient will be ordered potassium supplementation. The patient is on IV antibiotics as per Infectious Disease. The patient will be ordered one unit of PRBC because of persistent refractory low hemoglobin/hematocrit and hypotension. CURRENT MEDICATIONS: Dilaudid 1 mg IV every 6 hours p.r.n., Elavil 25 mg at bedtime. The patient is on IV TPN Intralipid 250 mL every day, meropenem 1 g IV every 12 hours. Patient is on Clinimix 83 mL per hour. The patient is on Neurontin 400 mg three times a day. The patient is on oxycodone 30 mg every 6 hours p.r.n. The patient has been ordered potassium 20 mEq riders x2. The patient is on midodrine 2.5 mg three times a day, Protonix 40 mg daily, normal saline 150 mL an hour which will be held during the transfusion. The patient is on Tylenol 650 mg suppository p.o. for fever of greater than 99.5, Zofran 4 mg IV every 6 hours p.r.n. At present, the patient's further disposition will be dependent upon the patient's recommendations by Infectious Disease regarding the duration of IV antibiotics and further recommendation by Hematology/Oncology and other subspecialties. The patient's overall prognosis is guarded to poor, which the patient is aware of. Dictated and electronically signed, not read. Sergio Wagner MD
[2017-12-01] MEDS: [UNRECOGNIZED DRUG - NUTRITION] IV SCH (17:55)
[2017-12-01] MEDS: Fat Emulsion 20% IV 250 ML IV SCH (17:57)
[2017-12-01] MEDS ORDERED: Vancomycin 1gm in NS 250ml 1 GM/250 ML BAG IVPB STA (19:26)
--- NOTE | 2017-12-01 20:29 | US ---
PROCEDURE: Right upper extremity venous US CLINICAL HISTORY: Arm pain and swelling Evaluate for deep venous thrombosis. PHYSICIAN(S): Tim Calhoun M.D FINDINGS: The visualized rightinternal jugular vein is sonographically normal and compressible. No evidence of obstruction or thrombus is seen. The visualized segments of the right subclavian vein are patent with normal waveforms. No sonographic evidence of obstruction or thrombosis is seen. The visualized deep venous system of the proximal right upper extremity is sonographically normal and compressible. IMPRESSION: 1. No sonographic evidence for deep venous thrombosis in the visualized segments of the right upper extremity.
--- NOTE | 2017-12-01 21:58 | CP.PCM.PN ---
Subjective - Date & Time of Evaluation Date of Evaluation: 11/30/17 Time of Evaluation: 18:00 - Subjective Subjective: Feeling better Objective - Vital Signs/Intake and Output Vital Signs (last 24 hours): Temp Pulse Resp BP Pulse Ox 101.3 F H 113 H 20 107/63 97 12/01/17 18:00 12/01/17 16:00 12/01/17 16:00 12/01/17 16:00 12/01/17 16:00 - Medications Medications: Current Medications Acetaminophen (Tylenol 650 Mg Supp) 650 mg RC Q6H PRN PRN Reason: Headache Acetaminophen (Tylenol 325mg Tab) 650 mg PO Q6 PRN PRN Reason: TEMP>=99.5F Last Admin: 12/01/17 17:16 Dose: 650 mg Acetaminophen (Tylenol 325mg Tab) 650 mg PO Q6 PRN PRN Reason: Headache Acetaminophen (Tylenol 650 Mg Supp) 650 mg RC Q6H PRN PRN Reason: TEMP>=99.5F Amitriptyline HCl (Elavil) 25 mg PO HS [facility] Last Admin: 12/01/17 21:27 Dose: 25 mg Gabapentin (Neurontin) 400 mg PO TID [facility] PRN Reason: Protocol Last Admin: 12/01/17 17:10 Dose: 400 mg Hydromorphone HCl (Dilaudid) 1 mg IVP Q6H PRN PRN Reason: Pain, severe (8-10) Last Admin: 12/01/17 21:25 Dose: 1 mg Meropenem (Merrem Iv 1 Gm Premix) 50 mls @ 100 mls/hr IVPB Q12 [facility] PRN Reason: Protocol Last Admin: 12/01/17 21:27 Dose: 100 mls/hr Sodium Chloride (Sodium Chloride 0.9%) 1,000 mls @ 150 mls/hr IV .Q6H40M [facility] Last Admin: 12/01/17 09:56 Dose: 150 mls/hr Multivitamins/Vitamin C 10 ml/Chromium/Copper/Manganese/Zinc 1 ml/ Famotidine 40 mg/Insulin Human Regular 12 units / Amino Acids/Electrolytes/Dextrose 2, 015.12 mls @ 83.963 mls/hr IV .Q24H [facility] Last Admin: 12/01/17 17:55 Dose: 83.963 mls/hr Fat Emulsion Intravenous (Intralipid 20%) 250 mls @ 20.833 mls/hr IV Q24H [facility] Last Admin: 12/01/17 17:57 Dose: 20.833 mls/hr Midodrine (Proamatine) 2.5 mg PO TID [facility] Last Admin: 12/01/17 17:10 Dose: 2.5 mg Ondansetron HCl (Zofran Inj) 4 mg IVP Q6H PRN PRN Reason: Nausea/Vomiting Last Admin: 12/01/17 17:10 Dose: 4 mg Oxycodone HCl (Oxycodone Immediate Release Tab) 30 mg PO Q6H PRN PRN Reason: Pain, moderate (4-7) Last Admin: 12/01/17 17:15 Dose: 30 mg Pantoprazole Sodium (Protonix Ec Tab) 40 mg PO ACB [facility] Last Admin: 12/01/17 09:55 Dose: 40 mg - Labs Labs: 12/01/17 06:00 12/01/17 06:00 PT 13.1 SECONDS (9.4-12.5) H 11/27/17 18:32 INR 1.15 (0.93-1.08) H 11/27/17 18:32 - Head Exam Head Exam: ATRAUMATIC - Eye Exam Eye Exam: Normal appearance - ENT Exam ENT Exam: Mucous Membranes Dry - Respiratory Exam Respiratory Exam: NORMAL BREATHING PATTERN - Cardiovascular Exam Cardiovascular Exam: +S1, +S2 - GI/Abdominal Exam GI & Abdominal Exam: Normal Bowel Sounds Assessment and Plan (1) Anemia Assessment & Plan: anemia of chronic disease and CKD H/H stable no iron/b12/folate deficiency Status: Acute (2) Carcinoid tumor Assessment & Plan: outpatient f/u with primary oncologist Status: Acute
--- NOTE | 2017-12-01 22:01 | CP.PCM.PN ---
Subjective - Date & Time of Evaluation Date of Evaluation: 12/01/17 Time of Evaluation: 15:00 - Subjective Subjective: Feeling better, abdominal pain improved. Objective - Vital Signs/Intake and Output Vital Signs (last 24 hours): Temp Pulse Resp BP Pulse Ox 101.3 F H 113 H 20 107/63 97 12/01/17 18:00 12/01/17 16:00 12/01/17 16:00 12/01/17 16:00 12/01/17 16:00 - Medications Medications: Current Medications Acetaminophen (Tylenol 650 Mg Supp) 650 mg RC Q6H PRN PRN Reason: Headache Acetaminophen (Tylenol 325mg Tab) 650 mg PO Q6 PRN PRN Reason: TEMP>=99.5F Last Admin: 12/01/17 17:16 Dose: 650 mg Acetaminophen (Tylenol 325mg Tab) 650 mg PO Q6 PRN PRN Reason: Headache Acetaminophen (Tylenol 650 Mg Supp) 650 mg RC Q6H PRN PRN Reason: TEMP>=99.5F Amitriptyline HCl (Elavil) 25 mg PO HS [facility] Last Admin: 12/01/17 21:27 Dose: 25 mg Gabapentin (Neurontin) 400 mg PO TID [facility] PRN Reason: Protocol Last Admin: 12/01/17 17:10 Dose: 400 mg Hydromorphone HCl (Dilaudid) 1 mg IVP Q6H PRN PRN Reason: Pain, severe (8-10) Last Admin: 12/01/17 21:25 Dose: 1 mg Meropenem (Merrem Iv 1 Gm Premix) 50 mls @ 100 mls/hr IVPB Q12 [facility] PRN Reason: Protocol Last Admin: 12/01/17 21:27 Dose: 100 mls/hr Sodium Chloride (Sodium Chloride 0.9%) 1,000 mls @ 150 mls/hr IV .Q6H40M [facility] Last Admin: 12/01/17 09:56 Dose: 150 mls/hr Multivitamins/Vitamin C 10 ml/Chromium/Copper/Manganese/Zinc 1 ml/ Famotidine 40 mg/Insulin Human Regular 12 units / Amino Acids/Electrolytes/Dextrose 2, 015.12 mls @ 83.963 mls/hr IV .Q24H [facility] Last Admin: 12/01/17 17:55 Dose: 83.963 mls/hr Fat Emulsion Intravenous (Intralipid 20%) 250 mls @ 20.833 mls/hr IV Q24H [facility] Last Admin: 12/01/17 17:57 Dose: 20.833 mls/hr Midodrine (Proamatine) 2.5 mg PO TID [facility] Last Admin: 12/01/17 17:10 Dose: 2.5 mg Ondansetron HCl (Zofran Inj) 4 mg IVP Q6H PRN PRN Reason: Nausea/Vomiting Last Admin: 12/01/17 17:10 Dose: 4 mg Oxycodone HCl (Oxycodone Immediate Release Tab) 30 mg PO Q6H PRN PRN Reason: Pain, moderate (4-7) Last Admin: 12/01/17 17:15 Dose: 30 mg Pantoprazole Sodium (Protonix Ec Tab) 40 mg PO ACB [facility] Last Admin: 12/01/17 09:55 Dose: 40 mg - Labs Labs: 12/01/17 06:00 12/01/17 06:00 PT 13.1 SECONDS (9.4-12.5) H 11/27/17 18:32 INR 1.15 (0.93-1.08) H 11/27/17 18:32 - Head Exam Head Exam: ATRAUMATIC - Eye Exam Eye Exam: Normal appearance - ENT Exam ENT Exam: Mucous Membranes Dry - Respiratory Exam Respiratory Exam: NORMAL BREATHING PATTERN - Cardiovascular Exam Cardiovascular Exam: +S1, +S2 - GI/Abdominal Exam GI & Abdominal Exam: Normal Bowel Sounds Assessment and Plan (1) Anemia Assessment & Plan: anemia of chronic disease and CKD H/H remains stable no iron/b12/folate deficiency Status: Acute (2) Carcinoid tumor Assessment & Plan: outpatient treatment and f/u with primary oncologist Status: Acute
--- NOTE | 2017-12-02 00:52 | PN ---
DATE: SUBJECTIVE: Patient is in bed, in no acute distress. Patient was seen earlier this morning in room 366, bed 1. Patient is having fevers. PHYSICAL EXAMINATION: VITAL SIGNS: Temperature is 101.3, blood pressure is 107/63, respiratory rate of 20, heart rate of 84. HEENT: Unremarkable. NECK: Supple. LUNGS: Have decreased breath sounds. HEART: Normal S1 and S2. ABDOMEN: Soft. EXTREMITIES: Examination of the arm reveals infiltration at IV site, erythema of the right arm and edema. LABORATORY DATA: Reveal a white count of 6.8, hemoglobin of 8, platelets of 273. BUN of 19, creatinine of 1.0, procalcitonin of 12.45. Urinalysis is noted. Microbiology reveals the blood cultures with no growth. ultrasound is pending. Chest x-ray from this morning is reported to be no active lung disease. Repeat blood cultures are ordered. Patient is already on meropenem. ASSESSMENT AND PLAN: This is a 62-year-old male with sepsis due to right-sided pyelonephritis associated with cystitis and pneumobilia, elevated bilirubin, status post cholecystectomy, on meropenem, right nephrostomy tube, gastrostomy tube placement, carcinoma of the gastrointestinal tract, and now with a new fever and right arm erythema over the IV site. We will give a dose of vancomycin and repeat blood cultures, urine cultures, and case was discussed with Dr. Wagner. We will follow closely with you. Andrew Ye MD
[2017-12-02] MEDS ORDERED: oxyCODONE 30 mg Immediate Release Tab PO ONE (01:31)
[2017-12-02] MEDS: Sodium Chloride 0.9% 1,000 ML IV SCH ×2 (01:58→08:56)
[2017-12-02] MEDS: HYDROmorphone 1 mg/ml ISec IVP PRN ×3 (06:38→18:08)
[2017-12-02] MEDS: Pantoprazole 40 mg EC Tab PO SCH (06:38)
[2017-12-02 07:06] LABS: BASO # 0.05 K/mm3 (0.0-2.0); BASO % 0.5 % (0.0-3.0); EOS # 0.4 (0.0-0.7); EOS % 3.6 % (1.5-5.0); GRAN # 6.78 (1.4-6.5); GRAN % 69.5 % (50.0-68.0); LYMPH # 1.1 (1.2-3.4); LYMPH % 11.7 % (22.0-35.0); MEAN CELL VOLUME 92.5 fl (80.0-105.0); MEAN CORPUSCULAR HEMOGLOBIN 30.7 pg (25.0-35.0); MEAN CORPUSCULAR HGB CONC 33.2 g/dl (31.0-37.0); MEAN PLATELET VOLUME 12.6 fl (7.0-11.0); MONO # 1.4 (0.1-0.6); MONO % 14.7 % (1.0-6.0); RBC 2.93 10^6/uL (3.5-6.1); RED CELL DISTRIBUTION WIDTH 18.1 % (11.5-14.5); WHITE BLOOD COUNT 9.8 10^3/ul (4.5-11.0)
[2017-12-02 07:29] LABS: ALB/GLOB RATIO 0.7 (1.1-1.8); ALBUMIN 2.3 g/dL (3.0-4.8); ALT/SGPT 53 U/L (7-56); AST/SGOT 69 U/L (17-59); BILIRUBIN,DIRECT 1.3 mg/dL (0.0-0.4); BLOOD UREA NITROGEN 22 mg/dL (7-21); CALCIUM 8.6 mg/dL (8.4-10.5); GFR AFRICAN-AMERICAN > 60; GFR NON-AFRICAN AMERICAN > 60
[2017-12-02] MEDS ORDERED: DiphenhydrAMINE 50 mg/ml Inj IVP ONE ×2 (07:30)
[2017-12-02] MEDS ORDERED: Potassium Phosphate 15 MMOLE in Sodium Chloride 0.9% 250 ML IVPB ONE (08:10)
[2017-12-02] MEDS: oxyCODONE 30 mg Immediate Release Tab PO PRN ×3 (08:33→19:56)
[2017-12-02] MEDS ORDERED: Vancomycin 1.5 GM in Sodium Chloride 0.9% 500 ML IVPB ONE (09:49)
--- NOTE | 2017-12-02 10:35 | CP.PCM.PN ---
Subjective - Date & Time of Evaluation Date of Evaluation: 12/02/17 Time of Evaluation: 07:15 - Subjective Subjective: Medicine Note for Dr. Wagner Patient seen and examined at bedside. No acute event overnight. Patent states that he has abdominal pain and nausea but denies having any episodes of emesis. He is tolerating liquids and receiving TPN. Patient has no other complaints at this time. Objective - Vital Signs/Intake and Output Vital Signs (last 24 hours): Temp Pulse Resp BP Pulse Ox 99.5 F 93 H 20 113/66 100 12/02/17 07:28 12/02/17 07:28 12/02/17 07:28 12/02/17 07:28 12/02/17 07:28 Intake and Output: 12/02/17 12/02/17 06:59 18:59 Intake Total 480 Output Total 1450 Balance -970 - Medications Medications: Current Medications Acetaminophen (Tylenol 650 Mg Supp) 650 mg RC Q6H PRN PRN Reason: Headache Acetaminophen (Tylenol 325mg Tab) 650 mg PO Q6 PRN PRN Reason: TEMP>=99.5F Last Admin: 12/01/17 17:16 Dose: 650 mg Acetaminophen (Tylenol 325mg Tab) 650 mg PO Q6 PRN PRN Reason: Headache Acetaminophen (Tylenol 650 Mg Supp) 650 mg RC Q6H PRN PRN Reason: TEMP>=99.5F Amitriptyline HCl (Elavil) 25 mg PO [facility] Last Admin: 12/01/17 21:27 Dose: 25 mg Gabapentin (Neurontin) 400 mg PO TID [facility] PRN Reason: Protocol Last Admin: 12/02/17 10:03 Dose: 400 mg Hydromorphone HCl (Dilaudid) 1 mg IVP Q6H PRN PRN Reason: Pain, severe (8-10) Last Admin: 12/02/17 06:38 Dose: 1 mg Sodium Chloride (Sodium Chloride 0.9%) 1,000 mls @ 150 mls/hr IV .Q6H40M [facility] Last Admin: 12/02/17 08:56 Dose: 150 mls/hr Multivitamins/Vitamin C 10 ml/Chromium/Copper/Manganese/Zinc 1 ml/ Famotidine 40 mg/Insulin Human Regular 12 units / Amino Acids/Electrolytes/Dextrose 2, 015.12 mls @ 83.963 mls/hr IV .Q24H [facility] Last Admin: 12/01/17 17:55 Dose: 83.963 mls/hr Fat Emulsion Intravenous (Intralipid 20%) 250 mls @ 20.833 mls/hr IV Q24H [facility] Last Admin: 12/01/17 17:57 Dose: 20.833 mls/hr Potassium Phosphate 15 mmole/ (Sodium Chloride) 255 mls @ 42.5 mls/hr IVPB ONCE ONE Stop: 12/02/17 14:09 Last Admin: 12/02/17 10:05 Dose: 42.5 mls/hr Meropenem (Merrem Iv 1 Gm Premix) 50 mls @ 100 mls/hr IVPB Q8 [facility] PRN Reason: Protocol Vancomycin HCl 1.5 gm/ Sodium (Chloride) 500 mls @ 167 mls/hr IVPB ONCE ONE PRN Reason: Protocol Stop: 12/02/17 12:48 Midodrine (Proamatine) 2.5 mg PO TID [facility] Last Admin: 12/02/17 10:04 Dose: 2.5 mg Ondansetron HCl (Zofran Inj) 4 mg IVP Q6H PRN PRN Reason: Nausea/Vomiting Last Admin: 12/01/17 17:10 Dose: 4 mg Oxycodone HCl (Oxycodone Immediate Release Tab) 30 mg PO Q6H PRN PRN Reason: Pain, moderate (4-7) Last Admin: 12/02/17 08:33 Dose: 30 mg Pantoprazole Sodium (Protonix Ec Tab) 40 mg PO ACB [facility] Last Admin: 12/02/17 06:38 Dose: 40 mg - Labs Labs: 12/02/17 06:40 12/02/17 06:40 PT 13.1 SECONDS (9.4-12.5) H 11/27/17 18:32 INR 1.15 (0.93-1.08) H 11/27/17 18:32 - Constitutional Appears: No Acute Distress - Head Exam Head Exam: ATRAUMATIC, NORMOCEPHALIC - Eye Exam Eye Exam: Normal appearance - ENT Exam ENT Exam: Mucous Membranes Moist - Respiratory Exam Respiratory Exam: Clear to Ausculation Bilateral, NORMAL BREATHING PATTERN - Cardiovascular Exam Cardiovascular Exam: REGULAR RHYTHM, +S1, +S2 - GI/Abdominal Exam GI & Abdominal Exam: Soft, Tenderness, Normal Bowel Sounds. absent: Distended, Firm, Guarding, Rebound Additional comments: ileostomy pink and patent with brownish liquid stool G tube in place being drained into pickering bag with bilious output - Extremities Exam Extremities Exam: Normal Capillary Refill. absent: Calf Tenderness - Back Exam Additional comments: nephrostomy tube in place draining yellow urine - Neurological Exam Neurological Exam: Alert, Awake, Oriented x3 - Psychiatric Exam Psychiatric exam: Normal Affect, Normal Mood - Skin Skin Exam: Dry, Intact, Normal Color, Warm Additional comments: RUE: with 2 x 2 cm edematous are right above antecubital fossa, TTP - improving Assessment and Plan - Assessment and Plan (Free Text) Plan: 62 year old male with a PMH of carcinoid CA of GI tract s/p colectomy with ileostomy, right hydroureter s/p nephrostomy, renal insufficiency, recurrent SBOs, and gastrostomy tube presents to [place] due to right malfunctioning nephrostomy tube. 1. Sepsis Leukocytosis downtrending Afebrile Procal elevated supports bacterial origin BCx negative x2 UCx negative Continue merrem NS @ 150 ID consulted, recs appreciated 2. Right upper extremity edema/tenderness Suspected phlebitis history of malignancy so at risk for hypercoagulability f/u upper ext doppler Warm compresses 3. PRANAV BUN and Cr downtrending Nephrology consulted and recs appreciated NS @ 150 Monitor and replete electrolytes as needed 4. Chronic pain Holding fentanyl patch for fear of hypotension Continue PRN oxycodone Encouraged PT/OT 5. Hypotension Likely 2/2 malnutrition and multiple GI comorbidities midodrine Monitor BP 6. Poor PO intake in setting of multiple GI procedures Continue TPN 7. Normocytic normochromic anemia 2/2 anemia of chronic disease Monitor hgb Heme/Onc consulted and following, recs appreciated 8. History of Carcinoid CA with ileostomy and g-tube Continue decompression via G tube GI and IR following 9. Malfunctioning Nephrostomy tube (resolved) Replaced by IR Monitoring output IR and Urology following GI/DVT ppx: protonix/SCDs Discussed with Dr. Kristy Padilla PGY1
[2017-12-02] MEDS: Meropenem IV 1 gm in NS 50 ML IVPB SCH ×3 (11:25→22:06)
[2017-12-02] MEDS: Fat Emulsion 20% IV 250 ML IV SCH (18:55)
[2017-12-02] MEDS: [UNRECOGNIZED DRUG - NUTRITION] IV SCH (18:56)
--- NOTE | 2017-12-02 19:54 | CARD ---
APPROVED REPORT EXAM: Two-dimensional and M-mode echocardiogram with Doppler and color Doppler. INDICATION Infection:Rule out subacute bacterial endocarditis 2D DIMENSIONS Left Atrium (2D)3.1 (1.6-4.0cm)IVSd1.1 (0.7-1.1cm) LVDd3.7 (3.9-5.9cm)PWd1.1 (0.7-1.1cm) LVDs2.6 (2.5-4.0cm)FS (%) 29.0 % LVEF (%)56.6 (>50%) Aortic Valve AoV Peak Fougatts561.0cm/Jazmin Peak GR.16mmHg Mitral Valve E/A ratio0.0 TDI E/Lateral E'0.0E/Medial E'0.0 Tricuspid Valve TR Peak [id number] [id number] Peak Gr.27mmHg [id number] LEFT VENTRICLE The left ventricle is normal size. There is normal left ventricular wall thickness. The left ventricular function is normal. The left ventricular ejection fraction is within the normal range. There is normal LV segmental wall motion. Transmitral Doppler flow pattern is Grade I-abnormal relaxation pattern. RIGHT VENTRICLE The right ventricle is normal size. There is normal right ventricular wall thickness. The right ventricular systolic function is normal. ATRIA The left atrium size is normal. The right atrium size is normal. AORTIC VALVE The aortic valve is mildly thickened. No aortic regurgitation is present. There is no aortic valvular stenosis. MITRAL VALVE The mitral valve is mildly thickened. There is no mitral valve regurgitation noted. There is no mitral valve stenosis. TRICUSPID VALVE The tricuspid valve is normal in structure. There is trace tricuspid regurgitation. PULMONIC VALVE The pulmonary valve is normal in structure. There is no pulmonic valvular regurgitation. GREAT VESSELS The aortic root is normal in size. PERICARDIAL EFFUSION There is no pericardial effusion. <Conclusion> Valvualar structures are not well visualized, however, no vegitation seen
--- NOTE | 2017-12-02 21:39 | CP.PCM.PN ---
Subjective - Date & Time of Evaluation Date of Evaluation: 12/02/17 Time of Evaluation: 18:15 - Subjective Subjective: Has some abdominal pain. Objective - Vital Signs/Intake and Output Vital Signs (last 24 hours): Temp Pulse Resp BP Pulse Ox 98.8 F 104 H 18 86/54 L 97 12/02/17 16:00 12/02/17 16:00 12/02/17 16:00 12/02/17 16:00 12/02/17 16:00 - Medications Medications: Current Medications Acetaminophen (Tylenol 650 Mg Supp) 650 mg RC Q6H PRN PRN Reason: Headache Acetaminophen (Tylenol 325mg Tab) 650 mg PO Q6 PRN PRN Reason: TEMP>=99.5F Last Admin: 12/02/17 11:25 Dose: 650 mg Acetaminophen (Tylenol 325mg Tab) 650 mg PO Q6 PRN PRN Reason: Headache Acetaminophen (Tylenol 650 Mg Supp) 650 mg RC Q6H PRN PRN Reason: TEMP>=99.5F Amitriptyline HCl (Elavil) 25 mg PO HS [facility] Last Admin: 12/01/17 21:27 Dose: 25 mg Gabapentin (Neurontin) 400 mg PO TID [facility] PRN Reason: Protocol Last Admin: 12/02/17 17:56 Dose: 400 mg Hydromorphone HCl (Dilaudid) 1 mg IVP Q6H PRN PRN Reason: Pain, severe (8-10) Last Admin: 12/02/17 18:08 Dose: 1 mg Sodium Chloride (Sodium Chloride 0.9%) 1,000 mls @ 150 mls/hr IV .Q6H40M [facility] Last Admin: 12/02/17 08:56 Dose: 150 mls/hr Multivitamins/Vitamin C 10 ml/Chromium/Copper/Manganese/Zinc 1 ml/ Famotidine 40 mg/Insulin Human Regular 12 units / Amino Acids/Electrolytes/Dextrose 2, 015.12 mls @ 83.963 mls/hr IV .Q24H [facility] Last Admin: 12/02/17 18:56 Dose: 83.963 mls/hr Fat Emulsion Intravenous (Intralipid 20%) 250 mls @ 20.833 mls/hr IV Q24H [facility] Last Admin: 12/02/17 18:55 Dose: 20.833 mls/hr Meropenem (Merrem Iv 1 Gm Premix) 50 mls @ 100 mls/hr IVPB Q8 [facility] PRN Reason: Protocol Last Admin: 12/02/17 14:32 Dose: 100 mls/hr Midodrine (Proamatine) 2.5 mg PO TID [facility] Last Admin: 12/02/17 17:59 Dose: 2.5 mg Ondansetron HCl (Zofran Inj) 4 mg IVP Q6H PRN PRN Reason: Nausea/Vomiting Last Admin: 12/01/17 17:10 Dose: 4 mg Oxycodone HCl (Oxycodone Immediate Release Tab) 30 mg PO Q6H PRN PRN Reason: Pain, moderate (4-7) Last Admin: 12/02/17 19:56 Dose: 30 mg Pantoprazole Sodium (Protonix Ec Tab) 40 mg PO ACB [facility] Last Admin: 12/02/17 06:38 Dose: 40 mg - Labs Labs: 12/02/17 06:40 12/02/17 06:40 PT 13.1 SECONDS (9.4-12.5) H 11/27/17 18:32 INR 1.15 (0.93-1.08) H 11/27/17 18:32 - Head Exam Head Exam: ATRAUMATIC - Eye Exam Eye Exam: Normal appearance - ENT Exam ENT Exam: Mucous Membranes Dry - Respiratory Exam Respiratory Exam: NORMAL BREATHING PATTERN - Cardiovascular Exam Cardiovascular Exam: +S1, +S2 - GI/Abdominal Exam GI & Abdominal Exam: Normal Bowel Sounds Assessment and Plan (1) Anemia Assessment & Plan: anemia of chronic disease and CKD Status: Acute (2) Carcinoid tumor Assessment & Plan: outpatient f/u with primary oncologist. Status: Acute
--- NOTE | 2017-12-02 23:22 | CP.PCM.PN ---
Subjective - Date & Time of Evaluation Date of Evaluation: 12/02/17 Time of Evaluation: 10:05 - Subjective Subjective: Comfortable in bed, no fevers. Objective - Vital Signs/Intake and Output Vital Signs (last 24 hours): Temp Pulse Resp BP Pulse Ox 99.5 F 93 H 20 113/66 100 12/02/17 07:28 12/02/17 07:28 12/02/17 07:28 12/02/17 07:28 12/02/17 07:28 Intake and Output: 12/02/17 12/02/17 06:59 18:59 Intake Total 480 Output Total 1450 Balance -970 - Medications Medications: Current Medications Acetaminophen (Tylenol 650 Mg Supp) 650 mg RC Q6H PRN PRN Reason: Headache Acetaminophen (Tylenol 325mg Tab) 650 mg PO Q6 PRN PRN Reason: TEMP>=99.5F Last Admin: 12/01/17 17:16 Dose: 650 mg Acetaminophen (Tylenol 325mg Tab) 650 mg PO Q6 PRN PRN Reason: Headache Acetaminophen (Tylenol 650 Mg Supp) 650 mg RC Q6H PRN PRN Reason: TEMP>=99.5F Amitriptyline HCl (Elavil) 25 mg PO HS [facility] Last Admin: 12/01/17 21:27 Dose: 25 mg Gabapentin (Neurontin) 400 mg PO TID [facility] PRN Reason: Protocol Last Admin: 12/01/17 17:10 Dose: 400 mg Hydromorphone HCl (Dilaudid) 1 mg IVP Q6H PRN PRN Reason: Pain, severe (8-10) Last Admin: 12/02/17 06:38 Dose: 1 mg Meropenem (Merrem Iv 1 Gm Premix) 50 mls @ 100 mls/hr IVPB Q12 [facility] PRN Reason: Protocol Last Admin: 12/01/17 21:27 Dose: 100 mls/hr Sodium Chloride (Sodium Chloride 0.9%) 1,000 mls @ 150 mls/hr IV .Q6H40M [facility] Last Admin: 12/02/17 08:56 Dose: 150 mls/hr Multivitamins/Vitamin C 10 ml/Chromium/Copper/Manganese/Zinc 1 ml/ Famotidine 40 mg/Insulin Human Regular 12 units / Amino Acids/Electrolytes/Dextrose 2, 015.12 mls @ 83.963 mls/hr IV .Q24H [facility] Last Admin: 12/01/17 17:55 Dose: 83.963 mls/hr Fat Emulsion Intravenous (Intralipid 20%) 250 mls @ 20.833 mls/hr IV Q24H [facility] Last Admin: 12/01/17 17:57 Dose: 20.833 mls/hr Potassium Phosphate 15 mmole/ (Sodium Chloride) 255 mls @ 42.5 mls/hr IVPB ONCE ONE Stop: 12/02/17 14:09 Meropenem (Merrem Iv 1 Gm Premix) 50 mls @ 100 mls/hr IVPB Q8 [facility] PRN Reason: Protocol Vancomycin HCl 1.5 gm/ Sodium (Chloride) 500 mls @ 167 mls/hr IVPB ONCE ONE PRN Reason: Protocol Stop: 12/02/17 12:48 Midodrine (Proamatine) 2.5 mg PO TID [facility] Last Admin: 12/01/17 17:10 Dose: 2.5 mg Ondansetron HCl (Zofran Inj) 4 mg IVP Q6H PRN PRN Reason: Nausea/Vomiting Last Admin: 12/01/17 17:10 Dose: 4 mg Oxycodone HCl (Oxycodone Immediate Release Tab) 30 mg PO Q6H PRN PRN Reason: Pain, moderate (4-7) Last Admin: 12/02/17 08:33 Dose: 30 mg Pantoprazole Sodium (Protonix Ec Tab) 40 mg PO ACB [facility] Last Admin: 12/02/17 06:38 Dose: 40 mg - Labs Labs: 12/02/17 06:40 12/02/17 06:40 PT 13.1 SECONDS (9.4-12.5) H 11/27/17 18:32 INR 1.15 (0.93-1.08) H 11/27/17 18:32 - Constitutional Appears: Chronically Ill - Head Exam Head Exam: NORMAL INSPECTION - Neck Exam Neck Exam: absent: Meningismus - Respiratory Exam Respiratory Exam: Decreased Breath Sounds - Cardiovascular Exam Cardiovascular Exam: +S1, +S2 - GI/Abdominal Exam GI & Abdominal Exam: Soft. absent: Tenderness Additional comments: right sided nephrolithiasis Assessment and Plan - Assessment and Plan (Free Text) Plan: Assessment Consider sepsis due to right sided pyelonephritis with associated cystitis, with coagulase negative staph bacteremia pneumobilia and elevated bilirubin, consider S/P cholecystectomy R/O choledocholethiasis carcinoma of GI tract S/P colectomy and ileostomy S/P nephrostomy tube placement on the right 2 years ago history of G-tube placement chronic renal failure Plan follow up repeat blood cx; started IV Vancomycin and will continue Merrem will continue to monitor clinically
[2017-12-02] MEDS: Vancomycin 1gm in NS 250ml 1 GM/250 ML BAG IVPB SCH (23:48)
[2017-12-03] MEDS: HYDROmorphone 1 mg/ml ISec IVP PRN ×4 (00:20→19:56)
--- NOTE | 2017-12-03 00:52 | PN ---
DATE: 12/02/2017 SUBJECTIVE: Patient is seen in room 366, bed 1. Patient is lying in the bed. Patient is awake, responsive. Overnight nurse's notes were reviewed. Patient needed intermittent pain medications. PHYSICAL EXAMINATION: VITAL SIGNS: Overnight, patient spiked fever of 102, down to 101.3, 99, then again patient spiked this morning, fever of 102.7; heart rate 84, 70, 93. Blood pressure 113/66, 115/73, 116/61. Respiration 18, O2 sat 97% to 100%. HEENT: Head examination normocephalic, atraumatic. HEENT examination shows pinkish pale conjunctivae. Dry oral mucosa. No neck rigidity. No audible carotid bruit. CHEST: Kyphosis. LUNGS: Examination shows occasional rhonchi, upper lung jhaveri. Positive right upper chest Port-A-Cath. EXTREMITIES: Shows positive right forearm cellulitic area with IV infiltration, which was removed. Positive tenderness of the right proximal forearm. Lower extremities show no pitting edema, no calf tenderness, no Homans' sign. ABDOMEN: Shows ileostomy with positive gastrostomy, positive right percutaneous nephrostomy. GENITALIA: Male. RECTAL: Examination is deferred. NEUROLOGIC: Patient is alert, awake, oriented x3. Cranial nerves II through XII limited. Gait examination, since admission, patient has been always lying in the bed and does not want to be sitting up in the chair. MUSCULOSKELETAL: Examination shows a 19.5 DIAGNOSTICS: On 12/02, WBC 9.8, hemoglobin/hematocrit 9 and 27, platelet 285. Granulocytes 69. Sodium 134, potassium 3.6, chloride 104, CO2 25, anion gap 9, BUN 22, creatinine 1.0, GFR greater than 60, glucose 113, calcium 8.6, phosphorus 2.4, magnesium 1.8, total bili 1.6, direct bili 1.3, AST 69, alk phos 487, total protein 5.5, albumin 2.3. Blood cultures from 12/01 is growing gram-positive cocci, both bottles. Blood type O+. Patient was ordered a chest x-ray and a right upper extremity venous Doppler. The results of the which were reviewed. Chest x-ray ordered was negative for any infiltrate, right upper extremity venous Doppler was negative for DVT. Patient was ordered an echocardiogram for positive blood cultures, which shows ejection fraction of 56% with negative vegetations, grade 1 abnormal relaxation pattern, mildly thickened aortic valve, mildly thickened mitral valve, trace tricuspid regurgitation, no pulmonic regurgitation. No vegetation noted. IMPRESSION AND PLAN: 1. Gram-positive cocci bacteremia and sepsis. 2. High-grade fever. 3. Right upper extremity phlebitis, cellulitis secondary to intravenous infiltration. 4. Hypotension. 5. Tachycardia. 6. Leukocytosis with granulocytosis. 7. Normocytic iron-deficiency anemia. 8. Bandemia. 9. Elevated reticulocyte count. 10. Hypokalemia, hypophosphatemia. 11. Transaminitis and hyperbilirubinemia. 12. Hyperprocalcitoninemia. 13. Status post acute kidney injury. 14. Protein malnutrition. 15. Hypoalbuminemia. 16. Prerenal kidney injury. 17. Proteinuria, microscopic hematuria, pyuria, bacteriuria. 18. Left ventricular ejection fraction of 57%. 19. Grade 1 abnormal relaxation pattern. 20. Mildly thickened aortic valve, mildly thickened mitral valve and trace tricuspid regurgitation. 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 22. . 23. Sepsis secondary to right-sided pyelonephritis, cystitis and pneumobilia, hyperbilirubinemia. Plan at this time, patient has been ordered repeat labs. Patient will be ordered transfusion of PRBC once patient's fever has resolved. Patient has been ordered serial labs. Repeat blood cultures orders today. CURRENT CONSULTATIONS: 1. Gastroenterology. 2. Hematology/Oncology. 3. Infectious Disease. 4. Nephrology. 5. Urology. 6. Interventional Radiology. CURRENT MEDICATIONS: Patient is on: 1. Clinimix TPN 83 mL an hour. 2. Dilaudid 1 mg IV every 6 p.r.n. 3. Elavil 25 mg at bedtime. 4. Intralipid 20% 250 mL daily. 5. Meropenem 1 g IV every 8. 6. Neurontin 400 three times a day. 7. Oxycodone 30 mg every 6 p.r.n. 8. Patient has been given a dose of K-Phos x1. 9. Patient is on midodrine 2.5 three times a day. 10. Protonix 40 mg daily. 11. IV fluid 0.9 normal saline at 150 mL an hour. 12. Tylenol p.r.n. 13. Patient was given a dose of vancomycin 1 g yesterday and 1.5 g today. 14. Patient is on Zofran 4 IV every 6. Patient has been ordered out of bed. Head of the bed at 30 degrees, JOESPH ventura, SCDs, occupational therapy, physical therapy ordered.. Patient will be continued on the above therapeutic intervention. We will await further recommendation from all the specialties regarding patient's care. Patient's overall prognosis is [id number]. Patient is aware of the patient's condition and overall [id number] prognosis. Dictated and electronically signed, not read. Sergio Wagner MD
[2017-12-03] MEDS: Sodium Chloride 0.9% 1,000 ML IV SCH ×3 (02:20→23:30)
[2017-12-03] MEDS: oxyCODONE 30 mg Immediate Release Tab PO PRN ×4 (03:11→22:39)
[2017-12-03] MEDS: Meropenem IV 1 gm in NS 50 ML IVPB SCH ×3 (05:15→22:34)
[2017-12-03 08:26] LABS: BASO # 0.04 K/mm3 (0.0-2.0); BASO % 0.4 % (0.0-3.0); EOS # 0.4 (0.0-0.7); EOS % 3.3 % (1.5-5.0); GRAN # 7.04 (1.4-6.5); GRAN % 64.5 % (50.0-68.0); HEMOGLOBIN 8.1 g/dL (14.0-18.0); LYMPH # 1.5 (1.2-3.4); LYMPH % 13.9 % (22.0-35.0); MEAN CELL VOLUME 92.1 fl (80.0-105.0); MEAN CORPUSCULAR HEMOGLOBIN 30.5 pg (25.0-35.0); MEAN CORPUSCULAR HGB CONC 33.1 g/dl (31.0-37.0); MEAN PLATELET VOLUME 12.5 fl (7.0-11.0); MONO % 17.9 % (1.0-6.0); RBC 2.66 10^6/uL (3.5-6.1); RED CELL DISTRIBUTION WIDTH 18.1 % (11.5-14.5); WHITE BLOOD COUNT 10.9 10^3/ul (4.5-11.0)
[2017-12-03] MEDS: Pantoprazole 40 mg EC Tab PO SCH (08:42)
[2017-12-03 08:55] LABS: ALB/GLOB RATIO 0.7 (1.1-1.8); ALBUMIN 2.1 g/dL (3.0-4.8); ALT/SGPT 50 U/L (7-56); AST/SGOT 44 U/L (17-59); BILIRUBIN,DIRECT 1.1 mg/dL (0.0-0.4); BLOOD UREA NITROGEN 24 mg/dL (7-21); CALCIUM 8.2 mg/dL (8.4-10.5); GFR AFRICAN-AMERICAN > 60; GFR NON-AFRICAN AMERICAN > 60
[2017-12-03] MEDS: Vancomycin 1gm in NS 250ml 1 GM/250 ML BAG IVPB SCH ×2 (12:51→23:33)
[2017-12-03] MEDS: Fat Emulsion 20% IV 250 ML IV SCH (18:02)
[2017-12-03] MEDS: [UNRECOGNIZED DRUG - NUTRITION] IV SCH (18:03)
[2017-12-03] MEDS ORDERED: HYDROmorphone 2 mg/ml ISec IVP PRN (20:15)
--- NOTE | 2017-12-03 21:05 | CP.PCM.PN ---
Subjective - Date & Time of Evaluation Date of Evaluation: 12/03/17 Time of Evaluation: 18:20 - Subjective Subjective: Feeling better, some abdominal discomfort Objective - Vital Signs/Intake and Output Vital Signs (last 24 hours): Temp Pulse Resp BP Pulse Ox 100.0 F H 104 H 18 86/54 L 97 12/03/17 15:11 12/02/17 16:00 12/02/17 16:00 12/02/17 16:00 12/02/17 16:00 Intake and Output: 12/03/17 12/04/17 18:59 06:59 Intake Total 480 Output Total 1950 Balance -1470 - Medications Medications: Current Medications Acetaminophen (Tylenol 650 Mg Supp) 650 mg RC Q6H PRN PRN Reason: Headache Acetaminophen (Tylenol 325mg Tab) 650 mg PO Q6 PRN PRN Reason: TEMP>=99.5F Last Admin: 12/03/17 14:11 Dose: 650 mg Acetaminophen (Tylenol 325mg Tab) 650 mg PO Q6 PRN PRN Reason: Headache Acetaminophen (Tylenol 650 Mg Supp) 650 mg RC Q6H PRN PRN Reason: TEMP>=99.5F Amitriptyline HCl (Elavil) 25 mg PO HS [facility] Last Admin: 12/02/17 22:05 Dose: 25 mg Gabapentin (Neurontin) 400 mg PO TID [facility] PRN Reason: Protocol Last Admin: 12/03/17 18:01 Dose: 400 mg Hydromorphone HCl (Dilaudid) 2 mg IVP Q6H PRN PRN Reason: Pain, severe (8-10) Sodium Chloride (Sodium Chloride 0.9%) 1,000 mls @ 150 mls/hr IV .Q6H40M [facility] Last Admin: 12/03/17 02:20 Dose: 150 mls/hr Multivitamins/Vitamin C 10 ml/Chromium/Copper/Manganese/Zinc 1 ml/ Famotidine 40 mg/Insulin Human Regular 12 units / Amino Acids/Electrolytes/Dextrose 2, 015.12 mls @ 83.963 mls/hr IV .Q24H [facility] Last Admin: 12/03/17 18:03 Dose: 83.963 mls/hr Fat Emulsion Intravenous (Intralipid 20%) 250 mls @ 20.833 mls/hr IV Q24H [facility] Last Admin: 12/03/17 18:02 Dose: 20.833 mls/hr Meropenem (Merrem Iv 1 Gm Premix) 50 mls @ 100 mls/hr IVPB Q8 [facility] PRN Reason: Protocol Last Admin: 12/03/17 14:10 Dose: 100 mls/hr Vancomycin HCl (Vancomycin 1gm) 1 gm in 250 mls @ 167 mls/hr IVPB Q12H [facility] PRN Reason: Protocol Stop: 12/09/17 23:31 Last Admin: 12/03/17 12:51 Dose: 167 mls/hr Midodrine (Proamatine) 2.5 mg PO TID [facility] Last Admin: 12/03/17 18:01 Dose: 2.5 mg Mupirocin (Bactroban Ointment) 0 gm TOP TID [facility] Last Admin: 12/03/17 18:01 Dose: 1 applic Ondansetron HCl (Zofran Inj) 4 mg IVP Q6H PRN PRN Reason: Nausea/Vomiting Last Admin: 12/03/17 16:02 Dose: 4 mg Oxycodone HCl (Oxycodone Immediate Release Tab) 30 mg PO Q6H PRN PRN Reason: Pain, moderate (4-7) Last Admin: 12/03/17 15:56 Dose: 30 mg Pantoprazole Sodium (Protonix Ec Tab) 40 mg PO ACB [facility] Last Admin: 12/03/17 08:42 Dose: 40 mg - Labs Labs: 12/03/17 08:00 12/03/17 08:00 PT 13.1 SECONDS (9.4-12.5) H 11/27/17 18:32 INR 1.15 (0.93-1.08) H 11/27/17 18:32 - Head Exam Head Exam: ATRAUMATIC - Eye Exam Eye Exam: Normal appearance - ENT Exam ENT Exam: Mucous Membranes Dry - Respiratory Exam Respiratory Exam: NORMAL BREATHING PATTERN - Cardiovascular Exam Cardiovascular Exam: +S1, +S2 - GI/Abdominal Exam GI & Abdominal Exam: Normal Bowel Sounds Assessment and Plan (1) Anemia Assessment & Plan: chronic disease and renal disease element of bone marrow suppression from chemotherapy transfusion support PRN Status: Acute (2) Carcinoid tumor Assessment & Plan: outpatient f/u and treatment with primary oncologist Status: Acute
--- NOTE | 2017-12-04 00:30 | PN ---
DATE: SUBJECTIVE: Patient is in bed, in no acute distress. He was seen early this morning in room 366. Patient does have low grade fevers. PHYSICAL EXAMINATION: VITAL SIGNS: On exam, temperature is 100.2, respiratory rate of 18, heart rate of 93, blood pressure is 113/60. HEENT: Unremarkable. NECK: Supple. LUNGS: Have decreased breath sounds. HEART: Normal S1 and S2. ABDOMEN: Soft. LABORATORY DATA: Reveals white count of 10.9, hemoglobin of 8, platelets of 297. Coagulation is noted. Chemistries reveals a BUN of 24, creatinine of 1.0. Urinalysis is noted. Microbiology reveals the blood cultures are positive, and repeat blood cultures are positive again. Review of orders reveals the patient to be on vancomycin. ASSESSMENT AND PLAN: A 62-year-old male, who was seen early this morning with sepsis with right-sided pyelonephritis associated with cystitis, now with coagulase-negative Staphylococcus bacteremia and was treated with status post cholecystectomy, cholelithiasis, carcinoma of the gastrointestinal tract, colectomy, ileostomy, and on vancomycin and meropenem. Repeat blood cultures positive; we will request another set. We will follow closely with you. Andrew Ye MD
[2017-12-04] MEDS: HYDROmorphone 1 mg/ml ISec IVP PRN ×4 (01:51→20:00)
--- NOTE | 2017-12-04 04:07 | PN ---
DATE: 12/03/2017 SUBJECTIVE: The patient is again seen lying in the bed, in room 366, bed 1. Overnight nurse's notes were reviewed. Patient was unable to get blood transfusion because of the fever. PHYSICAL EXAMINATION: VITAL SIGNS: T max in the last 24 hours is 102.7, down to 99; heart rate 76, 84, 93. There is no blood pressure recorded for . No blood pressure is documented for today. Vital signs, nurse's notes reviewed. HEENT: Head examination, normocephalic and atraumatic. HEENT examination shows pinkish pale conjunctivae. Anicteric sclerae. Dry oral mucosa. NECK: No neck rigidity. CHEST: Kyphosis. Positive right upper chest Port-A-Cath. LUNGS: Shows no rales, crackles or wheezing. CARDIOVASCULAR: S1, S2, regular rhythm. Positive decreasing erythema and swelling of the right forearm. ABDOMEN: Soft, positive ileostomy, positive gastrostomy, positive right flank percutaneous nephrostomy. GENITALIA: Male. EXTREMITIES: Shows no pitting edema, no calf tenderness. No Homans sign. MUSCULOSKELETAL: Shows a body mass index of 19.5. NEUROLOGIC: Patient is alert, awake, oriented x3, responsive. Cranial nerves II through XII limited. Gait examination is not tested. DIAGNOSTICS: On 12/03/2017, WBC 10.9, hemoglobin and hematocrit 8.1 and 24.5 and platelets 297. Sodium 134, potassium 3.6, chloride 106, CO2 of 25, anion gap 7, BUN 24, creatinine 1.0, GFR is greater than 60, glucose 118, calcium 8.2, phosphorus 2.9, magnesium 1.9. Total bili 1.3, direct bili 1.1, alk phos 336, total protein 5.2 and albumin 2.1. The patient's blood cultures from 12/01/2017 and 12/02/2017 are growing Gram-positive cocci and coagulase-negative staph. IMPRESSION AND PLAN: 1. Recurrent persistent high-grade fever. 2. Fever. 3. Hypotension. 4. Cachexia. 5. Leukocytosis with granulocytosis. 6. Refractory normocytic anemia. 7. Elevated reticulocyte count of 2. 8. Bandemia. 9. Hypokalemia. 10. Status post acute kidney injury. 11. Transaminitis. 12. Hyperbilirubinemia. 13. Protein malnutrition. 14. Hypoalbuminemia. 15. Proteinuria. 16. Microscopic hematuria. 17. Pyuria, bacteriuria. 18. Gram-positive cocci in clusters and coagulase-negative Staphylococcus aureus bacteremia. 19. Right upper extremity cellulitis and possible phlebitis. 20. Left ventricular ejection fraction of 57%. 21. Grade 1 abnormal relaxation pattern. 22. Mildly thickened aortic valve. 23. Mildly thickened mitral valve. 24. Trace tricuspid regurgitation. 25. Gastrointestinal carcinoid tumor. 26. Status post right percutaneous nephrostomy revision and change. 27. Deconditioning. 28. Narcotic-dependent pain syndrome of malignancy. 29. Cachexia of malignancy. 30. Right forearm cellulitis secondary to IV infiltration. 31. Feeding dysfunction with chronic hyperalimentation-dependent feeding dysfunction. 32. Neuropathy. 33. Hypophosphatemia. Plan at this time, patient has been ordered repeat labs for the morning. CURRENT MEDICATIONS: The patient is on, 1. Bactroban cream to the right forearm area with Clinimix at 84 mL an hour. 2. Dilaudid 1 mg every 6 p.r.n. 3. Elavil 25 mg at bedtime. 4. Intralipid 250 mL daily. 5. Meropenem 1 g IV every 8 hours. 6. Neurontin 400 three times a day. 7. Oxycodone 30 mg every 6 p.r.n. 8. Patient was given potassium rider x1. 9. Patient is on ProAmatine 2.5 mg three times a day. 10. Protonix 40 mg daily. 11. IV fluid 0.9 normal saline at 150 mL an hour. 12. Tylenol p.r.n. for fever. 13. Vancomycin 1 g IV every 12 hours. 14. Zofran 4 mg IV every 6 hours. Patient has been ordered cooling blanket for any temperature greater than or equal to 100.5. Patient has been ordered out of bed to chair, physical therapy. Patient has been updated about his condition, diagnoses, treatment plan and management plan at length. All questions concerned answered. Patient has been ordered transfusion of PRBC if temperature goes down below 99 degrees Fahrenheit. Overall prognosis guarded to poor. Patient updated about his condition and diagnoses. Dictated and electronically signed, not read. Sergio MD Kristy [facility] # [id number]
[2017-12-04] MEDS: Pantoprazole 40 mg EC Tab PO SCH (06:37)
[2017-12-04] MEDS: Meropenem IV 1 gm in NS 50 ML IVPB SCH ×3 (06:37→21:39)
[2017-12-04 07:06] LABS: BASO # 0.04 K/mm3 (0.0-2.0); BASO % 0.5 % (0.0-3.0); EOS # 0.5 (0.0-0.7); GRAN # 4.29 (1.4-6.5); GRAN % 48.2 % (50.0-68.0); LYMPH # 1.6 (1.2-3.4); LYMPH % 18.2 % (22.0-35.0); MEAN CELL VOLUME 91.8 fl (80.0-105.0); MEAN CORPUSCULAR HEMOGLOBIN 29.7 pg (25.0-35.0); MEAN CORPUSCULAR HGB CONC 32.4 g/dl (31.0-37.0); MEAN PLATELET VOLUME 12.3 fl (7.0-11.0); MONO # 2.4 (0.1-0.6); MONO % 27.1 % (1.0-6.0); PLATELET COUNT 321 10^3/uL (120.0-450.0); RBC 2.69 10^6/uL (3.5-6.1); RED CELL DISTRIBUTION WIDTH 17.8 % (11.5-14.5); WHITE BLOOD COUNT 8.9 10^3/ul (4.5-11.0)
[2017-12-04 07:16] LABS: ALB/GLOB RATIO 0.7 (1.1-1.8); ALBUMIN 2.1 g/dL (3.0-4.8); ALT/SGPT 40 U/L (7-56); AST/SGOT 42 U/L (17-59); BLOOD UREA NITROGEN 21 mg/dL (7-21); CALCIUM 8.5 mg/dL (8.4-10.5); GFR AFRICAN-AMERICAN > 60; GFR NON-AFRICAN AMERICAN > 60
[2017-12-04 09:33] LABS: BAND 3 % (0-2); EOSINOPHIL 5 % (0.0-3.0); LYMPHOCYTE 21 % (22.0-35.0); MONOCYTE 21 % (1.0-6.0); NEUTROPHIL 48 % (50.0-70.0)
[2017-12-04 09:34] LABS: BASOPHIL 2 % (0.0-1.0); HYPOCHROMIA 1+; PLATELET ESTIMATE NORMAL (NORMAL); POIKILOCYTOSIS SLIGHT
[2017-12-04 09:35] LABS: ANISOCYTOSIS 1+; LARGE PLATELETS PRESENT; OVALOCYTES SLIGHT; TARGET CELLS 1+
--- NOTE | 2017-12-04 09:40 | VASCULAR ---
PROCEDURE: Fluoroscopy up to 1 hr.. HISTORY: NEPHROSTOMY TUBE CHANGE COMPARISON: None TECHNIQUE: Standard protocol for this study/examination. FINDINGS: Submitted images from the current procedure: 7.0 IMPRESSION: Less than 1 hr fluoroscopic time utilized during performance of the procedure.
[2017-12-04] MEDS: Vancomycin 1gm in NS 250ml 1 GM/250 ML BAG IVPB SCH ×2 (10:47→23:52)
[2017-12-04] MEDS: oxyCODONE 30 mg Immediate Release Tab PO PRN ×3 (11:37→23:53)
[2017-12-04] MEDS: Sodium Chloride 0.9% 1,000 ML IV SCH ×3 (13:49→23:51)
[2017-12-04] MEDS: [UNRECOGNIZED DRUG - NUTRITION] IV SCH (18:44)
[2017-12-04] MEDS: Fat Emulsion 20% IV 250 ML IV SCH (18:45)
--- NOTE | 2017-12-04 20:47 | PN ---
DATE: 12/04/2017 SUBJECTIVE: The patient seen earlier this morning in room 366, bed 1. PHYSICAL EXAMINATION: VITAL SIGNS: Temperature is 98, blood pressure is 110/60, respiratory rate of 18. HEENT: Unremarkable. NECK: Supple. LUNGS: Have decreased breath sound. HEART: Normal S1 and S2. ABDOMEN: Soft. LABORATORY DATA: White count is 8.9, hemoglobin of 8, platelets are 321. Chemistry is reviewed. The BUN of 21, creatinine of 0.9 and urinalysis is noted. Microbiology: Repeat blood cultures are positive for coagulase-negative Staphylococcus and review of orders revealed the patient to be on meropenem, vancomycin. ASSESSMENT AND PLAN: This is a 62-year-old male, seen earlier this morning with sepsis, right-sided pyelonephritis associated with cystitis, coagulase-negative Staphylococcus, status post cholecystectomy, cholelithiasis, carcinoma of gastrointestinal tract, colectomy, ileostomy. The patient does have a Port-A-Cath, which may be the etiology of the coagulase-negative Staphylococcus bacteremia and on vancomycin and meropenem. We will check on the repeat blood cultures. We will need an echo and we will make further recommendations upon availability of the repeat blood cultures results. We will also order a vancomycin trough level. Review of medications reveal the patient received vancomycin at 11:30 in the morning and 11:30 at night. We will order a vancomycin trough level at 10:30 in the morning, an hour before the 11:30 dose. Andrew Ye MD
[2017-12-05] MEDS: HYDROmorphone 1 mg/ml ISec IVP PRN ×3 (03:01→15:15)
[2017-12-05] MEDS: oxyCODONE 30 mg Immediate Release Tab PO PRN ×3 (06:01→18:32)
[2017-12-05] MEDS: Meropenem IV 1 gm in NS 50 ML IVPB SCH ×3 (06:01→21:08)
[2017-12-05 06:42] LABS: BASO # 0.05 K/mm3 (0.0-2.0); BASO % 0.6 % (0.0-3.0); EOS # 0.7 (0.0-0.7); EOS % 7.9 % (1.5-5.0); GRAN # 3.78 (1.4-6.5); GRAN % 44.6 % (50.0-68.0); HEMOGLOBIN 9.2 g/dL (14.0-18.0); LYMPH # 2.2 (1.2-3.4); LYMPH % 25.5 % (22.0-35.0); MEAN CELL VOLUME 89.5 fl (80.0-105.0); MEAN CORPUSCULAR HEMOGLOBIN 30.3 pg (25.0-35.0); MEAN CORPUSCULAR HGB CONC 33.8 g/dl (31.0-37.0); MEAN PLATELET VOLUME 12.7 fl (7.0-11.0); MONO # 1.8 (0.1-0.6); MONO % 21.4 % (1.0-6.0); RBC 3.04 10^6/uL (3.5-6.1); RED CELL DISTRIBUTION WIDTH 18.3 % (11.5-14.5); WHITE BLOOD COUNT 8.5 10^3/ul (4.5-11.0)
[2017-12-05 07:27] LABS: ALB/GLOB RATIO 0.7 (1.1-1.8); ALBUMIN 2.3 g/dL (3.0-4.8); ALT/SGPT 37 U/L (7-56); AST/SGOT 59 U/L (17-59); BILIRUBIN,DIRECT 1.3 mg/dL (0.0-0.4); BLOOD UREA NITROGEN 23 mg/dL (7-21); CALCIUM 8.7 mg/dL (8.4-10.5); GFR AFRICAN-AMERICAN > 60; GFR NON-AFRICAN AMERICAN > 60
[2017-12-05] MEDS: Pantoprazole 40 mg EC Tab PO SCH (09:26)
--- NOTE | 2017-12-05 09:59 | CP.PCM.PN ---
Subjective - Date & Time of Evaluation Date of Evaluation: 12/05/17 Time of Evaluation: 07:20 - Subjective Subjective: Tyson Kraft D.O. PGY-2, Internal Medicine, Dr. 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 Patient was seen and examined at bedside. Still having issues with pain. Not very hungry this morning. No acute overnight events. Objective - Vital Signs/Intake and Output Vital Signs (last 24 hours): Temp Pulse Resp BP Pulse Ox 97.8 F 83 20 97/62 L 100 12/05/17 08:33 12/05/17 08:33 12/05/17 08:33 12/05/17 08:33 12/05/17 08:33 Intake and Output: 12/05/17 12/05/17 06:59 18:59 Intake Total 480 Output Total 750 Balance -270 - Medications Medications: Current Medications Acetaminophen (Tylenol 650 Mg Supp) 650 mg RC Q6H PRN PRN Reason: Headache Acetaminophen (Tylenol 325mg Tab) 650 mg PO Q6 PRN PRN Reason: TEMP>=99.5F Last Admin: 12/03/17 14:11 Dose: 650 mg Acetaminophen (Tylenol 325mg Tab) 650 mg PO Q6 PRN PRN Reason: Headache Acetaminophen (Tylenol 650 Mg Supp) 650 mg RC Q6H PRN PRN Reason: TEMP>=99.5F Amitriptyline HCl (Elavil) 25 mg PO HS [facility] Last Admin: 12/04/17 21:39 Dose: 25 mg Fentanyl (Duragesic) 1 patch TD Q72H [facility] Gabapentin (Neurontin) 400 mg PO TID [facility] PRN Reason: Protocol Last Admin: 12/05/17 09:25 Dose: 400 mg Hydromorphone HCl (Dilaudid) 2 mg IVP Q6H PRN PRN Reason: Pain, severe (8-10) Last Admin: 12/05/17 09:27 Dose: 2 mg Sodium Chloride (Sodium Chloride 0.9%) 1,000 mls @ 150 mls/hr IV .Q6H40M [facility] Last Admin: 12/04/17 23:51 Dose: 150 mls/hr Multivitamins/Vitamin C 10 ml/Chromium/Copper/Manganese/Zinc 1 ml/ Famotidine 40 mg/Insulin Human Regular 12 units / Amino Acids/Electrolytes/Dextrose 2, 015.12 mls @ 83.963 mls/hr IV .Q24H [facility] Last Admin: 12/04/17 18:44 Dose: 83.963 mls/hr Fat Emulsion Intravenous (Intralipid 20%) 250 mls @ 20.833 mls/hr IV Q24H [facility] Last Admin: 12/04/17 18:45 Dose: 20.833 mls/hr Meropenem (Merrem Iv 1 Gm Premix) 50 mls @ 100 mls/hr IVPB Q8 [facility] PRN Reason: Protocol Last Admin: 12/05/17 06:01 Dose: 100 mls/hr Vancomycin HCl (Vancomycin 1gm) 1 gm in 250 mls @ 167 mls/hr IVPB Q12H [facility] PRN Reason: Protocol Stop: 12/09/17 23:31 Last Admin: 12/04/17 23:52 Dose: 167 mls/hr Midodrine (Proamatine) 2.5 mg PO TID [facility] Last Admin: 12/04/17 17:55 Dose: 2.5 mg Mupirocin (Bactroban Ointment) 0 gm TOP TID [facility] Last Admin: 12/04/17 17:57 Dose: 1 applic Ondansetron HCl (Zofran Inj) 4 mg IVP Q6H PRN PRN Reason: Nausea/Vomiting Last Admin: 12/03/17 16:02 Dose: 4 mg Oxycodone HCl (Oxycodone Immediate Release Tab) 30 mg PO Q6H PRN PRN Reason: Pain, moderate (4-7) Last Admin: 12/05/17 06:01 Dose: 30 mg Pantoprazole Sodium (Protonix Ec Tab) 40 mg PO ACB [facility] Last Admin: 12/05/17 09:26 Dose: 40 mg - Labs Labs: 12/05/17 06:30 12/05/17 06:30 PT 13.1 SECONDS (9.4-12.5) H 11/27/17 18:32 INR 1.15 (0.93-1.08) H 11/27/17 18:32 - Constitutional Appears: Cachectic, Chronically Ill, No Acute Distress - Head Exam Head Exam: ATRAUMATIC, NORMOCEPHALIC - Eye Exam Eye Exam: Normal appearance - ENT Exam ENT Exam: Mucous Membranes Moist - Respiratory Exam Respiratory Exam: Clear to Ausculation Bilateral, NORMAL BREATHING PATTERN - Cardiovascular Exam Cardiovascular Exam: REGULAR RHYTHM, +S1, +S2 - GI/Abdominal Exam GI & Abdominal Exam: Soft, Tenderness, Normal Bowel Sounds. absent: Distended, Firm, Guarding, Rebound Additional comments: ileostomy pink and patent with brownish liquid stool, g tube in place draining into pickering bag - Extremities Exam Extremities Exam: Normal Capillary Refill. 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 Plan: 1. Sepsis Possibly originally from obstructed nephrostomy tube and now possible R port-a- cath infection SUSIE ordered US of the R portacath ordered Tube replaced with defervescence and resolved leukocytosis BCx showed coag negative staph x2, repeat BCx negative x2 day 1 Continue merrem and vanco day 4 NS @ 150 ID consulted, recs appreciated 2. Right upper extremity edema/tenderness Suspected phlebitis UE duplex negative for thrombus Warm compresses On abx 3. PRANAV - improving BUN and Cr continue to downtrend Continue NS @ 150 Following closely Nephrology following 4. Chronic pain Hypotension has improved now that patient has been receiving midodrine so will re-start fentanyl patch at low dose of 25mcg and slowly titrate for optmium relief Continue PRN oxycodone Encouraged PT/OT 5. Hypotension - improving Likely 2/2 malnutrition and multiple GI comorbidities Continue with midodrine Monitor BP closely 6. Poor PO intake in setting of multiple GI procedures Continue TPN using home dosing 7. Normocytic normochromic anemia 2/2 anemia of chronic disease Studies consistent with anemia of chronic disease particularly given cancer history and multiple comorbidities Heme/Onc consulted and following, recs appreciated 8. History of Carcinoid CA with ileostomy and g-tube Continue decompression via G tube GI and IR following 9. Malfunctioning Nephrostomy tube (resolved) Replaced by IR Monitoring output IR and Urology following GI/DVT ppx: protonix/SCDs Patient was seen and examined and case was discussed with attending physician at length.
--- NOTE | 2017-12-05 10:05 | PN ---
DATE: 12/04/2017 SUBJECTIVE: The patient is seen lying in the bed. The patient is watching TV. Overnight, the patient's temperature was above 100 so the patient was unable to get blood transfusion. The patient did not offer any specific complaint. PHYSICAL EXAMINATION: VITAL SIGNS: T-max in the last 24 hours 100.2 down to 98.3, 97.8, 98.1, pulse 78, 86. The patient had no blood pressure reading done on 12/03/2017 for more than 24 hours. The patient had no blood pressure reading done from 12/02/2017 at 07:28 a.m. till the next blood pressure was done on 12/04/2017 at 6:00 a.m., which was 117/71. No blood pressure readings were done for 12/03/2017. Patient's today pulse is 78, 86, blood pressure is 106/63, 95/54, respirations 18, O2 sat 99%. HEENT: Head: Normocephalic, atraumatic. HEENT examination shows pale conjunctivae. Anicteric sclerae. No oropharyngeal lesion. NECK: No neck rigidity. HEART: Positive right upper chest Port-A-Cath noted. Positive kyphosis regular rhythm. Questionable soft systolic murmur left sternal border, right second intercostal space. ABDOMEN: Soft, positive ileostomy. Positive gastrostomy. Positive right percutaneous nephrostomy. GENITALIA: Male. RECTAL: Deferred. EXTREMITIES: Shows no pitting, no calf numbness, no Homans' sign. Right upper extremity had erythema, swelling at the site of the IV infiltration has almost resolved. MUSCULOSKELETAL: Shows a body mass index of 19.5. NEUROLOGIC: The patient is alert, awake, oriented x3. Cranial nerves II through XII limited. Gait examination, the patient refuses to be out of bed to chair. I have not seen the patient ambulating or out of bed to chair since the patient has been hospitalized and I am unable to find any nurse's documentation which states that the patient has been ambulating on the floor or in the room. I have encouraged and advised the patient to spend more time in recliner and out of bed to chair and ambulate as frequency and possible in the room with assistance and on the floor with assistance. DIAGNOSTICS On 12/04/2017, WBC 8.9, hemoglobin/hematocrit 8 and 24.7, platelet 321. Granulocytes 48, bands 3, lymphs 21. Sodium 137, potassium 3.7, chloride 107, CO2 28, anion gap 6, BUN 21, creatinine 0.9. GFR greater than 60, glucose 66, calcium 8.5, phosphorus 2.6, magnesium 2, alkaline phosphatase 319, total protein 5.1, albumin 2.1. Blood cultures from 12/01/2017 and 12/02/2017 are growing coagulase-negative staph four bottles. Repeat blood cultures from 12/03/2017 have been received, results pending. The patient has been typed and crossmatch again with O+ve blood. IMPRESSION: 1. Staphylococcus coagulase-negative persistent recurrent bacteremia and sepsis. 2. High-grade fever and recurrent fever. 3. Hypotension. 4. Hypovolemia. 5. Leukocytosis with granulocytosis and bandemia. 6. Refractory persistent anemia. 7. Bandemia. 8. Granulocytosis. 9. Hypokalemia. 10. Feeding dysfunction. 11. Chronic hyperalimentation dependent feeding dysfunction and nutritional disorder. 12. Status post acute kidney injury. 13. Iron deficiency. 14. Hyperbilirubinemia and transaminitis. 15. Mild protein malnutrition and moderate hypoalbuminemia. 16. Hyperprocalcitoninemia. 17. Proteinuria. 18. Microscopic hematuria. 19. Pyuria. 20. Bacteriuria. 21. O+ve blood type. 22. Right upper extremity phlebitis versus cellulitis secondary to IV infiltration. 23. Questionable poor compliance. 24. Cachexia of malignancy. 25. Narcotic-dependent pain syndrome of malignancy. 26. Deconditioning. 27. Gait dysfunction. 28. Anemia of chronic disease. 29. Gastrointestinal carcinoid tumor. 30. Sepsis with right-sided pyelonephritis, cystitis and coagulase-negative recurrent persistent bacteremia. 31. Status post ileostomy, gastrostomy. 32. Status post right percutaneous nephrostomy tube change and revision. PLAN: At this time, the patient has been ordered repeat labs. The patient has been ordered repeat blood cultures. CURRENT CONSULTATION: 1. Gastroenterology. 2. Hematology/Oncology. 3. Infectious Disease. 4. Nephrology. 5. Urology. 6. Interventional Radiology. CURRENT MEDICATIONS Bactroban cream to the affected area of the right upper extremity three times a day, Clinimix 83 mL/hour, Dilaudid 2 mg IV every 6 p.r.n. ordered by the medical writer, Elavil 25 mg at bedtime, Intralipid 250 mL daily, meropenem 1 g IV every 8 hours, Neurontin 400 three times a day, oxycodone 30 mg p.o. every 6 hours p.r.n. The patient has been ordered, ProAmatine 2.5 three times a day, Protonix 40 mg daily, IV fluid 0.9 normal saline at 150 mL an hour, Tylenol p.r.n. p.o. suppository every 6 hours, vancomycin 1 g IV every 12 hours, Zofran 4 IV every 6 hours. The patient is on liquid diet. The patient has been ordered out of bed to chair, KARLENE Lowes. The patient has been ordered cooling blanket p.r.n. for temperature greater than or equal to 105 degrees Fahrenheit. The patient has been ordered transfusion of 1 unit of PRBC today as soon as possible. The patient has been put on fingerstick blood sugar every 6 hours for evaluation of blood sugar as the patient is receiving insulin in the TPN. Overall prognosis is guarded to poor. Patient will be continued on IV antibiotic as per Infectious Disease recommendation. ADDENDUM: The patient has been updated about his condition, diagnostic test results and recommendation by all physicians involved in the care of the patient. Dictated and electronically signed, not read. Sergio Wagner MD
[2017-12-05] MEDS: Vancomycin 1gm in NS 250ml 1 GM/250 ML BAG IVPB SCH ×2 (12:49→23:20)
[2017-12-05] MEDS: Sodium Chloride 0.9% 1,000 ML IV SCH ×2 (12:52→22:00)
--- NOTE | 2017-12-05 14:57 | PN ---
DATE: 12/05/2017 SUBJECTIVE: The patient is seen in room 366, bed 1. Overnight nurse's notes were reviewed. No adverse events documented except for occasional pain for which the patient required IV Dilaudid. PHYSICAL EXAMINATION: VITAL SIGNS: The patient's overnight vital signs, T-max 99.8, down to 99.5; heart rate 84, sinus rhythm; blood pressure 117/74; respirations 17; O2 sat 96-99%. HEENT: Head examination normocephalic, atraumatic. HEENT examination shows pinkish pale conjunctivae. Anicteric sclerae. No oropharyngeal lesion. Positive bitemporal facial muscle wasting. CHEST: Kyphosis. Positive right upper chest Port-A-Cath noted. Occasional rhonchi noted, upper lung jhaveri. CARDIOVASCULAR: S1, S2. Regular rhythm. Questionable soft systolic murmur, left sternal border, right second intercostal space. ABDOMEN: Shows positive ileostomy. Positive gastrostomy. Right flank examination shows positive right percutaneous nephrostomy with clean dressing. GENITALIA: Male. RECTAL: Examination is deferred. EXTREMITIES: Shows no pitting edema, no calf tenderness, no Homans' sign. Right upper extremity forearm swelling, erythema. Tenderness has almost completely resolved. MUSCULOSKELETAL: Shows a decreased body mass index of 19.5. NEUROLOGIC: The patient is alert, awake, responsive. Is able to move upper and lower extremity without assistance. Gait examination is not tested. DIAGNOSTICS: On 12/05/2017, WBC 8.5, hemoglobin and hematocrit are 9.2 and 27.2, platelet 338. Sodium 134, potassium 3.8, chloride 104, CO2 of 27, BUN 23, creatinine 0.9, glucose 111, calcium 8.7, phosphorus 3.0, magnesium 2.1. AST, ALT have normalized. Total protein 5.5, albumin 2.3. Microbiology: Blood cultures, gram-positive cocci and Staph coagulase negative. Positive in 4 bottles. IMPRESSION AND PLAN: 1. Status post 1 unit packed red blood cell transfusion. 2. Gram-positive cocci, Staphylococcus coagulase-negative bacteremia and sepsis. 3. Hypotension. 4. Normocytic anemia. 5. Hypokalemia. 6. Transaminitis. 7. Hyperbilirubinemia. 8. Protein malnutrition. 9. Hypoalbuminemia. 10. Cachexia of malignancy. 11. Narcotic-dependent pain syndrome of malignancy. 12. Anemia of chronic disease. 13. Gastrointestinal carcinoid tumor. 14. Gait dysfunction. 15. Feeding dysfunction with chronic hyperalimentation dependent. 16. Neuropathy. 17. Deconditioning. Plan at this time, the patient is to be continued on the IV antibiotics as per Infectious Disease recommendation. The patient is on Bactroban cream to the right forearm area. The patient is on Dilaudid 2 mg IV every 6 p.r.n., Elavil 25 mg at bedtime, Intralipid 250 mL daily. The patient is on meropenem 1 g IV every 8 hours. The patient is on Clinimix 83 mL an hour, Neurontin 400 three times a day, oxycodone IR 30 mg every 6 hours p.r.n., ProAmatine 2.5 mg three times a day, Protonix 40 mg daily, IV fluid 0.9 normal saline at 150 mL an hour, Tylenol suppository or p.o. every 6 hours p.r.n. for temperature greater than or equal to 99.5, vancomycin 1 g IV every 12, Zofran 4 mg IV every 6 hours p.r.n. At this time, the patient was again encouraged to be out of bed to chair, ambulate and sit in the chair as much as possible, but since hospitalization, I have not seen the patient out of bed to chair and I have not witnessed the patient ambulating even in the room. Neither does the nurses' notes document that the patient has been ambulating. The patient was again re-advised and reinforced that he should be more out of bed and the patient was also advised to be out of bed to chair and ambulate as much as possible in the room and on the floor with assistance. The patient has been updated about his condition, diagnosis, overall guarded to poor prognosis and treatment plan and the patient's present diagnosis was explained to the patient in layman's language. All questions concerned answered. Dictated and electronically signed, not read. Sergio Wagner MD
--- NOTE | 2017-12-05 17:24 | CP.PCM.PN ---
Subjective - Date & Time of Evaluation Date of Evaluation: 12/05/17 Time of Evaluation: 08:50 - Subjective Subjective: Occasional back pain, no fever, no nausea. Objective - Vital Signs/Intake and Output Vital Signs (last 24 hours): Temp Pulse Resp BP Pulse Ox 97.8 F 83 20 97/62 L 100 12/05/17 08:33 12/05/17 08:33 12/05/17 08:33 12/05/17 08:33 12/05/17 08:33 Intake and Output: 12/05/17 12/05/17 06:59 18:59 Intake Total 480 Output Total 750 Balance -270 - Medications Medications: Current Medications Acetaminophen (Tylenol 650 Mg Supp) 650 mg RC Q6H PRN PRN Reason: Headache Acetaminophen (Tylenol 325mg Tab) 650 mg PO Q6 PRN PRN Reason: TEMP>=99.5F Last Admin: 12/03/17 14:11 Dose: 650 mg Acetaminophen (Tylenol 325mg Tab) 650 mg PO Q6 PRN PRN Reason: Headache Acetaminophen (Tylenol 650 Mg Supp) 650 mg RC Q6H PRN PRN Reason: TEMP>=99.5F Amitriptyline HCl (Elavil) 25 mg PO HS [facility] Last Admin: 12/04/17 21:39 Dose: 25 mg Fentanyl (Duragesic) 1 patch TD Q72H [facility] Last Admin: 12/05/17 10:00 Dose: 1 patch Gabapentin (Neurontin) 400 mg PO TID [facility] PRN Reason: Protocol Last Admin: 12/05/17 15:06 Dose: 400 mg Hydromorphone HCl (Dilaudid) 2 mg IVP Q6H PRN PRN Reason: Pain, severe (8-10) Sodium Chloride (Sodium Chloride 0.9%) 1,000 mls @ 150 mls/hr IV .Q6H40M [facility] Last Admin: 12/05/17 12:52 Dose: 150 mls/hr Meropenem (Merrem Iv 1 Gm Premix) 50 mls @ 100 mls/hr IVPB Q8 [facility] PRN Reason: Protocol Last Admin: 12/05/17 15:07 Dose: 100 mls/hr Vancomycin HCl (Vancomycin 1gm) 1 gm in 250 mls @ 167 mls/hr IVPB Q12H [facility] PRN Reason: Protocol Stop: 12/09/17 23:31 Last Admin: 12/05/17 12:49 Dose: 167 mls/hr Fat Emulsion Intravenous (Intralipid 20%) 250 mls @ 20.833 mls/hr IV Q24H [facility] Multivitamins/Vitamin C 10 ml/Chromium/Copper/Manganese/Zinc 1 ml/ Famotidine 40 mg/Insulin Human Regular 12 units / Amino Acids/Electrolytes/Dextrose 2, 015.12 mls @ 83.963 mls/hr IV .Q24H [facility] Midodrine (Proamatine) 5 mg PO TID [facility] Last Admin: 12/05/17 15:16 Dose: 5 mg Mupirocin (Bactroban Ointment) 0 gm TOP TID [facility] Last Admin: 12/05/17 15:15 Dose: 1 applic Ondansetron HCl (Zofran Inj) 4 mg IVP Q6H PRN PRN Reason: Nausea/Vomiting Last Admin: 12/03/17 16:02 Dose: 4 mg Oxycodone HCl (Oxycodone Immediate Release Tab) 30 mg PO Q6H PRN PRN Reason: Pain, moderate (4-7) Last Admin: 12/05/17 12:51 Dose: 30 mg Pantoprazole Sodium (Protonix Ec Tab) 40 mg PO ACB [facility] Last Admin: 12/05/17 09:26 Dose: 40 mg - Labs Labs: 12/05/17 06:30 12/05/17 06:30 PT 13.1 SECONDS (9.4-12.5) H 11/27/17 18:32 INR 1.15 (0.93-1.08) H 11/27/17 18:32 - Constitutional Appears: Chronically Ill - Head Exam Head Exam: NORMAL INSPECTION - ENT Exam ENT Exam: Mucous Membranes Moist - Neck Exam Neck Exam: absent: Meningismus - Respiratory Exam Respiratory Exam: Decreased Breath Sounds - Cardiovascular Exam Cardiovascular Exam: +S1, +S2 - GI/Abdominal Exam GI & Abdominal Exam: Soft. absent: Tenderness Additional comments: right nephrostomy tube in place Assessment and Plan - Assessment and Plan (Free Text) Plan: Assessment Consider sepsis due to right sided pyelonephritis with associated cystitis, with coagulase negative staph bacteremia R/O port as the source pneumobilia and elevated bilirubin, consider S/P cholecystectomy R/O choledocholethiasis carcinoma of GI tract S/P colectomy and ileostomy S/P nephrostomy tube placement on the right 2 years ago history of G-tube placement chronic renal failure Plan repeat blood cx are negative; continue IV Vancomycin and will continue Merrem ; follow up ultrasound of the port area to rule out DVT will continue to monitor clinically overall prognosis is poor
[2017-12-05] MEDS: [UNRECOGNIZED DRUG - NUTRITION] IV SCH (18:34)
[2017-12-05] MEDS: Fat Emulsion 20% IV 250 ML IV SCH (18:34)
--- NOTE | 2017-12-05 19:28 | CP.PCM.PN ---
Subjective - Date & Time of Evaluation Date of Evaluation: 12/05/17 Time of Evaluation: 18:30 - Subjective Subjective: Has some abdominal pain. Objective - Vital Signs/Intake and Output Vital Signs (last 24 hours): Temp Pulse Resp BP Pulse Ox 97.8 F 83 20 97/62 L 100 12/05/17 08:33 12/05/17 08:33 12/05/17 08:33 12/05/17 08:33 12/05/17 08:33 - Medications Medications: Current Medications Acetaminophen (Tylenol 650 Mg Supp) 650 mg RC Q6H PRN PRN Reason: Headache Acetaminophen (Tylenol 325mg Tab) 650 mg PO Q6 PRN PRN Reason: TEMP>=99.5F Last Admin: 12/03/17 14:11 Dose: 650 mg Acetaminophen (Tylenol 325mg Tab) 650 mg PO Q6 PRN PRN Reason: Headache Acetaminophen (Tylenol 650 Mg Supp) 650 mg RC Q6H PRN PRN Reason: TEMP>=99.5F Amitriptyline HCl (Elavil) 25 mg PO HS [facility] Last Admin: 12/04/17 21:39 Dose: 25 mg Fentanyl (Duragesic) 1 patch TD Q72H [facility] Last Admin: 12/05/17 10:00 Dose: 1 patch Gabapentin (Neurontin) 400 mg PO TID [facility] PRN Reason: Protocol Last Admin: 12/05/17 18:33 Dose: 400 mg Hydromorphone HCl (Dilaudid) 2 mg IVP Q6H PRN PRN Reason: Pain, severe (8-10) Sodium Chloride (Sodium Chloride 0.9%) 1,000 mls @ 150 mls/hr IV .Q6H40M [facility] Last Admin: 12/05/17 12:52 Dose: 150 mls/hr Meropenem (Merrem Iv 1 Gm Premix) 50 mls @ 100 mls/hr IVPB Q8 [facility] PRN Reason: Protocol Last Admin: 12/05/17 15:07 Dose: 100 mls/hr Vancomycin HCl (Vancomycin 1gm) 1 gm in 250 mls @ 167 mls/hr IVPB Q12H [facility] PRN Reason: Protocol Stop: 12/09/17 23:31 Last Admin: 12/05/17 12:49 Dose: 167 mls/hr Fat Emulsion Intravenous (Intralipid 20%) 250 mls @ 20.833 mls/hr IV Q24H [facility] Last Admin: 12/05/17 18:34 Dose: 20.833 mls/hr Multivitamins/Vitamin C 10 ml/Chromium/Copper/Manganese/Zinc 1 ml/ Famotidine 40 mg/Insulin Human Regular 12 units / Amino Acids/Electrolytes/Dextrose 2, 015.12 mls @ 83.963 mls/hr IV .Q24H [facility] Last Admin: 12/05/17 18:34 Dose: 83.963 mls/hr Midodrine (Proamatine) 5 mg PO TID [facility] Last Admin: 12/05/17 18:32 Dose: 5 mg Mupirocin (Bactroban Ointment) 0 gm TOP TID [facility] Last Admin: 12/05/17 19:01 Dose: 1 applic Ondansetron HCl (Zofran Inj) 4 mg IVP Q6H PRN PRN Reason: Nausea/Vomiting Last Admin: 12/03/17 16:02 Dose: 4 mg Oxycodone HCl (Oxycodone Immediate Release Tab) 30 mg PO Q6H PRN PRN Reason: Pain, moderate (4-7) Last Admin: 12/05/17 18:32 Dose: 30 mg Pantoprazole Sodium (Protonix Ec Tab) 40 mg PO ACB [facility] Last Admin: 12/05/17 09:26 Dose: 40 mg - Labs Labs: 12/05/17 06:30 12/05/17 06:30 PT 13.1 SECONDS (9.4-12.5) H 11/27/17 18:32 INR 1.15 (0.93-1.08) H 11/27/17 18:32 - Head Exam Head Exam: ATRAUMATIC - Eye Exam Eye Exam: Normal appearance - ENT Exam ENT Exam: Mucous Membranes Dry - Respiratory Exam Respiratory Exam: NORMAL BREATHING PATTERN - Cardiovascular Exam Cardiovascular Exam: +S1, +S2 - GI/Abdominal Exam GI & Abdominal Exam: Normal Bowel Sounds Assessment and Plan (1) Anemia Assessment & Plan: chronic disease, recent chemotherapy s/p PRBC transfusion Status: Acute (2) Carcinoid tumor Assessment & Plan: outpatient f/u and treatment with primary oncologist Status: Acute
[2017-12-05] MEDS: HYDROmorphone 2 mg/ml ISec IVP PRN (21:09)
[2017-12-06] MEDS: oxyCODONE 30 mg Immediate Release Tab PO PRN ×4 (00:36→18:21)
[2017-12-06] MEDS: HYDROmorphone 2 mg/ml ISec IVP PRN ×2 (03:16→09:28)
[2017-12-06] MEDS: Meropenem IV 1 gm in NS 50 ML IVPB SCH ×3 (05:59→21:14)
[2017-12-06 06:34] LABS: BASO # 0.07 K/mm3 (0.0-2.0); BASO % 0.7 % (0.0-3.0); EOS # 0.5 (0.0-0.7); EOS % 4.6 % (1.5-5.0); GRAN # 5.57 (1.4-6.5); GRAN % 55.6 % (50.0-68.0); HEMOGLOBIN 9.2 g/dL (14.0-18.0); LYMPH # 1.9 (1.2-3.4); LYMPH % 18.4 % (22.0-35.0); MEAN CELL VOLUME 90.2 fl (80.0-105.0); MEAN CORPUSCULAR HGB CONC 33.2 g/dl (31.0-37.0); MEAN PLATELET VOLUME 12.3 fl (7.0-11.0); MONO # 2.1 (0.1-0.6); MONO % 20.7 % (1.0-6.0); RBC 3.07 10^6/uL (3.5-6.1); RED CELL DISTRIBUTION WIDTH 18.1 % (11.5-14.5)
[2017-12-06 06:52] LABS: ALB/GLOB RATIO 0.7 (1.1-1.8); ALBUMIN 2.4 g/dL (3.0-4.8); ALT/SGPT 33 U/L (7-56); AST/SGOT 42 U/L (17-59); BILIRUBIN,DIRECT 1.4 mg/dL (0.0-0.4); BLOOD UREA NITROGEN 25 mg/dL (7-21); CALCIUM 8.9 mg/dL (8.4-10.5); GFR AFRICAN-AMERICAN > 60; GFR NON-AFRICAN AMERICAN > 60
--- NOTE | 2017-12-06 08:26 | CP.PCM.PN ---
Subjective - Date & Time of Evaluation Date of Evaluation: 12/06/17 Time of Evaluation: 07:35 - Subjective Subjective: (covering for Dr. Wagner) Patient is seen this morning. He complains of pain in his abdomen. Objective - Vital Signs/Intake and Output Vital Signs (last 24 hours): Temp Pulse Resp BP Pulse Ox 98.8 F 86 19 103/66 98 12/05/17 16:00 12/05/17 16:00 12/05/17 16:00 12/05/17 16:00 12/05/17 16:00 Intake and Output: 12/06/17 12/06/17 06:59 18:59 Intake Total 3400 240 Output Total 2625 2000 Balance 775 -9670 - Medications Medications: Current Medications Acetaminophen (Tylenol 650 Mg Supp) 650 mg RC Q6H PRN PRN Reason: Headache Acetaminophen (Tylenol 325mg Tab) 650 mg PO Q6 PRN PRN Reason: TEMP>=99.5F Last Admin: 12/03/17 14:11 Dose: 650 mg Acetaminophen (Tylenol 325mg Tab) 650 mg PO Q6 PRN PRN Reason: Headache Acetaminophen (Tylenol 650 Mg Supp) 650 mg RC Q6H PRN PRN Reason: TEMP>=99.5F Amitriptyline HCl (Elavil) 25 mg PO HS [facility] Last Admin: 12/05/17 21:08 Dose: 25 mg Fentanyl (Duragesic) 1 patch TD Q72H [facility] Last Admin: 12/05/17 10:00 Dose: 1 patch Gabapentin (Neurontin) 400 mg PO TID [facility] PRN Reason: Protocol Last Admin: 12/05/17 18:33 Dose: 400 mg Hydromorphone HCl (Dilaudid) 2 mg IVP Q6H PRN PRN Reason: Pain, severe (8-10) Last Admin: 12/06/17 03:16 Dose: 2 mg Sodium Chloride (Sodium Chloride 0.9%) 1,000 mls @ 150 mls/hr IV .Q6H40M [facility] Last Admin: 12/05/17 22:00 Dose: 150 mls/hr Meropenem (Merrem Iv 1 Gm Premix) 50 mls @ 100 mls/hr IVPB Q8 [facility] PRN Reason: Protocol Last Admin: 12/06/17 05:59 Dose: 100 mls/hr Vancomycin HCl (Vancomycin 1gm) 1 gm in 250 mls @ 167 mls/hr IVPB Q12H [facility] PRN Reason: Protocol Stop: 12/09/17 23:31 Last Admin: 12/05/17 23:20 Dose: 167 mls/hr Fat Emulsion Intravenous (Intralipid 20%) 250 mls @ 20.833 mls/hr IV Q24H [facility] Last Admin: 12/05/17 18:34 Dose: 20.833 mls/hr Multivitamins/Vitamin C 10 ml/Chromium/Copper/Manganese/Zinc 1 ml/ Famotidine 40 mg/Insulin Human Regular 12 units / Amino Acids/Electrolytes/Dextrose 2, 015.12 mls @ 83.963 mls/hr IV .Q24H [facility] Last Admin: 12/05/17 18:34 Dose: 83.963 mls/hr Midodrine (Proamatine) 5 mg PO TID [facility] Last Admin: 12/05/17 18:32 Dose: 5 mg Mupirocin (Bactroban Ointment) 0 gm TOP TID [facility] Last Admin: 12/05/17 19:01 Dose: 1 applic Ondansetron HCl (Zofran Inj) 4 mg IVP Q6H PRN PRN Reason: Nausea/Vomiting Last Admin: 12/03/17 16:02 Dose: 4 mg Oxycodone HCl (Oxycodone Immediate Release Tab) 30 mg PO Q6H PRN PRN Reason: Pain, moderate (4-7) Last Admin: 12/06/17 06:21 Dose: 30 mg Pantoprazole Sodium (Protonix Ec Tab) 40 mg PO ACB [facility] Last Admin: 12/05/17 09:26 Dose: 40 mg - Labs Labs: 12/06/17 06:19 12/06/17 06:19 PT 13.1 SECONDS (9.4-12.5) H 11/27/17 18:32 INR 1.15 (0.93-1.08) H 11/27/17 18:32 - Constitutional Appears: No Acute Distress - Head Exam Head Exam: ATRAUMATIC, NORMOCEPHALIC - Respiratory Exam Respiratory Exam: Clear to Ausculation Bilateral - Cardiovascular Exam Cardiovascular Exam: +S1, +S2 - GI/Abdominal Exam GI & Abdominal Exam: Soft Additional comments: + right nephrostomy - Neurological Exam Neurological Exam: Alert, Awake, Oriented x3 Assessment and Plan - Assessment and Plan (Free Text) Assessment: Gram positive cocci, Staphylococcus coagulase negative bacteremia and sepsis Carcinoid malignancy s/p nephrostomy s/p colectomy Plan: Patient complains of abdominal pain. Patient has history of GI carcinoid malignancy. He is on oxycodone as needed for pain. Patient has multiple repeat positive blood cultures with gram positive cocci and coagulase negative Staphylococcus. Awaiting SUSIE to rule out endocarditis. continue Vanco and Merrem IV as per infectious disease.
[2017-12-06] MEDS: Pantoprazole 40 mg EC Tab PO SCH (09:38)
--- NOTE | 2017-12-06 12:23 | CP.PCM.PN ---
Subjective - Date & Time of Evaluation Date of Evaluation: 12/06/17 Time of Evaluation: 10:35 - Subjective Subjective: Comfortable in bed, no fevers, not in distress, no pain along his right chest IV line. No diarrhea. Still with occasional back pain. Objective - Vital Signs/Intake and Output Vital Signs (last 24 hours): Temp Pulse Resp BP Pulse Ox 98 F 85 20 107/64 100 12/06/17 08:37 12/06/17 08:37 12/06/17 08:37 12/06/17 08:37 12/06/17 08:37 Intake and Output: 12/06/17 12/06/17 06:59 18:59 Intake Total 3400 240 Output Total 2625 2000 Balance 775 -1760 - Medications Medications: Current Medications Acetaminophen (Tylenol 650 Mg Supp) 650 mg RC Q6H PRN PRN Reason: Headache Acetaminophen (Tylenol 325mg Tab) 650 mg PO Q6 PRN PRN Reason: TEMP>=99.5F Last Admin: 12/03/17 14:11 Dose: 650 mg Acetaminophen (Tylenol 325mg Tab) 650 mg PO Q6 PRN PRN Reason: Headache Acetaminophen (Tylenol 650 Mg Supp) 650 mg RC Q6H PRN PRN Reason: TEMP>=99.5F Amitriptyline HCl (Elavil) 25 mg PO HS [facility] Last Admin: 12/05/17 21:08 Dose: 25 mg Fentanyl (Duragesic) 1 patch TD Q72H [facility] Last Admin: 12/05/17 10:00 Dose: 1 patch Gabapentin (Neurontin) 400 mg PO TID [facility] PRN Reason: Protocol Last Admin: 12/05/17 18:33 Dose: 400 mg Hydromorphone HCl (Dilaudid) 2 mg IVP Q6H PRN PRN Reason: Pain, severe (8-10) Last Admin: 12/06/17 03:16 Dose: 2 mg Sodium Chloride (Sodium Chloride 0.9%) 1,000 mls @ 150 mls/hr IV .Q6H40M [facility] Last Admin: 12/05/17 22:00 Dose: 150 mls/hr Meropenem (Merrem Iv 1 Gm Premix) 50 mls @ 100 mls/hr IVPB Q8 [facility] PRN Reason: Protocol Last Admin: 12/06/17 05:59 Dose: 100 mls/hr Vancomycin HCl (Vancomycin 1gm) 1 gm in 250 mls @ 167 mls/hr IVPB Q12H [facility] PRN Reason: Protocol Stop: 12/09/17 23:31 Last Admin: 12/05/17 23:20 Dose: 167 mls/hr Fat Emulsion Intravenous (Intralipid 20%) 250 mls @ 20.833 mls/hr IV Q24H [facility] Last Admin: 12/05/17 18:34 Dose: 20.833 mls/hr Multivitamins/Vitamin C 10 ml/Chromium/Copper/Manganese/Zinc 1 ml/ Famotidine 40 mg/Insulin Human Regular 12 units / Amino Acids/Electrolytes/Dextrose 2, 015.12 mls @ 83.963 mls/hr IV .Q24H [facility] Last Admin: 12/05/17 18:34 Dose: 83.963 mls/hr Midodrine (Proamatine) 5 mg PO TID [facility] Last Admin: 12/05/17 18:32 Dose: 5 mg Mupirocin (Bactroban Ointment) 0 gm TOP TID [facility] Last Admin: 12/05/17 19:01 Dose: 1 applic Ondansetron HCl (Zofran Inj) 4 mg IVP Q6H PRN PRN Reason: Nausea/Vomiting Last Admin: 12/03/17 16:02 Dose: 4 mg Oxycodone HCl (Oxycodone Immediate Release Tab) 30 mg PO Q6H PRN PRN Reason: Pain, moderate (4-7) Last Admin: 12/06/17 06:21 Dose: 30 mg Pantoprazole Sodium (Protonix Ec Tab) 40 mg PO ACB [facility] Last Admin: 12/05/17 09:26 Dose: 40 mg - Labs Labs: 12/06/17 06:19 12/06/17 06:19 PT 13.1 SECONDS (9.4-12.5) H 11/27/17 18:32 INR 1.15 (0.93-1.08) H 11/27/17 18:32 - Constitutional Appears: Non-toxic, Chronically Ill - Head Exam Head Exam: NORMAL INSPECTION - ENT Exam ENT Exam: Mucous Membranes Moist - Neck Exam Neck Exam: absent: Meningismus - Respiratory Exam Respiratory Exam: Decreased Breath Sounds Additional comments: right anterior chest wall IV line in place, site clean and intact - Cardiovascular Exam Cardiovascular Exam: +S1, +S2 - GI/Abdominal Exam GI & Abdominal Exam: Soft. absent: Tenderness Assessment and Plan - Assessment and Plan (Free Text) Plan: Assessment Consider sepsis due to right sided pyelonephritis with associated cystitis, with coagulase negative staph bacteremia R/O port/ central line as the source pneumobilia and elevated bilirubin, consider S/P cholecystectomy R/O choledocholethiasis carcinoma of GI tract S/P colectomy and ileostomy S/P nephrostomy tube placement on the right 2 years ago history of G-tube placement chronic renal failure Plan follow up repeat blood cx are negative (3 consecutive blood cx are still positive for the coagulase negative staph); continue IV Vancomycin and will continue Merrem ; ultrasound of the IV line area does not show DVT, 2D echo does not show vegetations - would recommend removal of the IV line and will need at least 1 week of antibiotics after line removal will continue to monitor clinically overall prognosis is poor
[2017-12-06] MEDS: HYDROmorphone 1 mg/ml ISec IVP PRN ×2 (15:27→21:14)
[2017-12-06] MEDS: Sodium Chloride 0.9% 1,000 ML IV SCH (17:49)
--- NOTE | 2017-12-06 18:24 | CP.PCM.PN ---
Subjective - Date & Time of Evaluation Date of Evaluation: 12/06/17 Time of Evaluation: 17:05 - Subjective Subjective: Has some abdominal pain. Objective - Vital Signs/Intake and Output Vital Signs (last 24 hours): Temp Pulse Resp BP Pulse Ox 98 F 85 20 107/64 100 12/06/17 08:37 12/06/17 08:37 12/06/17 08:37 12/06/17 08:37 12/06/17 08:37 Intake and Output: 12/06/17 12/06/17 06:59 18:59 Intake Total 3400 240 Output Total 2625 1999 Balance 775 -8530 - Medications Medications: Current Medications Acetaminophen (Tylenol 650 Mg Supp) 650 mg RC Q6H PRN PRN Reason: Headache Acetaminophen (Tylenol 325mg Tab) 650 mg PO Q6 PRN PRN Reason: TEMP>=99.5F Last Admin: 12/03/17 14:11 Dose: 650 mg Acetaminophen (Tylenol 325mg Tab) 650 mg PO Q6 PRN PRN Reason: Headache Acetaminophen (Tylenol 650 Mg Supp) 650 mg RC Q6H PRN PRN Reason: TEMP>=99.5F Amitriptyline HCl (Elavil) 25 mg PO HS [facility] Last Admin: 12/05/17 21:08 Dose: 25 mg Fentanyl (Duragesic) 1 patch TD Q72H [facility] Last Admin: 12/05/17 10:00 Dose: 1 patch Gabapentin (Neurontin) 400 mg PO TID [facility] PRN Reason: Protocol Last Admin: 12/06/17 17:47 Dose: 400 mg Hydromorphone HCl (Dilaudid) 2 mg IVP Q6H PRN PRN Reason: Pain, severe (8-10) Last Admin: 12/06/17 15:27 Dose: 2 mg Sodium Chloride (Sodium Chloride 0.9%) 1,000 mls @ 150 mls/hr IV .Q6H40M [facility] Last Admin: 12/06/17 17:49 Dose: 150 mls/hr Meropenem (Merrem Iv 1 Gm Premix) 50 mls @ 100 mls/hr IVPB Q8 [facility] PRN Reason: Protocol Last Admin: 12/06/17 05:59 Dose: 100 mls/hr Vancomycin HCl (Vancomycin 1gm) 1 gm in 250 mls @ 167 mls/hr IVPB Q12H [facility] PRN Reason: Protocol Stop: 12/09/17 23:31 Last Admin: 12/05/17 23:20 Dose: 167 mls/hr Fat Emulsion Intravenous (Intralipid 20%) 250 mls @ 20.833 mls/hr IV Q24H [facility] Last Admin: 12/05/17 18:34 Dose: 20.833 mls/hr Multivitamins/Vitamin C 10 ml/Chromium/Copper/Manganese/Zinc 1 ml/ Famotidine 40 mg/Insulin Human Regular 12 units / Amino Acids/Electrolytes/Dextrose 2, 015.12 mls @ 83.963 mls/hr IV .Q24H [facility] Last Admin: 12/05/17 18:34 Dose: 83.963 mls/hr Midodrine (Proamatine) 5 mg PO TID [facility] Last Admin: 12/06/17 17:48 Dose: 5 mg Mupirocin (Bactroban Ointment) 0 gm TOP TID [facility] Last Admin: 12/05/17 19:01 Dose: 1 applic Ondansetron HCl (Zofran Inj) 4 mg IVP Q6H PRN PRN Reason: Nausea/Vomiting Last Admin: 12/03/17 16:02 Dose: 4 mg Oxycodone HCl (Oxycodone Immediate Release Tab) 30 mg PO Q6H PRN PRN Reason: Pain, moderate (4-7) Last Admin: 12/06/17 18:21 Dose: 30 mg Pantoprazole Sodium (Protonix Ec Tab) 40 mg PO ACB [facility] Last Admin: 12/06/17 09:38 Dose: 40 mg - Labs Labs: 12/06/17 06:19 12/06/17 06:19 PT 13.1 SECONDS (9.4-12.5) H 11/27/17 18:32 INR 1.15 (0.93-1.08) H 11/27/17 18:32 - Head Exam Head Exam: ATRAUMATIC - Eye Exam Eye Exam: Normal appearance - ENT Exam ENT Exam: Mucous Membranes Dry - Respiratory Exam Respiratory Exam: NORMAL BREATHING PATTERN - Cardiovascular Exam Cardiovascular Exam: +S1, +S2 - GI/Abdominal Exam GI & Abdominal Exam: Normal Bowel Sounds Assessment and Plan (1) Anemia Assessment & Plan: anemia of chronic disease and chemotherapy s/p PRBC transfusion Status: Acute (2) Carcinoid tumor Assessment & Plan: outpatient treatment and f/u with primary oncologist Status: Acute
[2017-12-06] MEDS: Fat Emulsion 20% IV 250 ML IV SCH (20:58)
[2017-12-06] MEDS: [UNRECOGNIZED DRUG - NUTRITION] IV SCH (20:58)
--- NOTE | 2017-12-07 01:33 | CON ---
DATE: 12/06/2017 CARDIOLOGY CONSULTATION HISTORY: The patient is a 62-year-old male who has documented bacteremia. The patient has multiple reasons for bacteremia including a central line that was placed in the past. The blood cultures are persistently elevated for staph epi. In addition, the patient's past medical history includes a history of colectomy and ileostomy as well as a nephrostomy that was placed 2 years ago. His underlying disease is carcinoid. In addition, he suffers from chronic renal failure. The patient denies shortness of breath, denies chest pain. SOCIAL HISTORY: Reviewed in detail were noncontributory. REVIEW OF SYSTEMS: Reviewed in detail were noncontributory. PHYSICAL EXAMINATION: VITAL SIGNS: Blood pressure is 107/64. The patient is afebrile, heart rate is in the 80s. NECK: Negative JVD. LUNGS: Without rales. HEART: Reveals S1, S2. EXTREMITIES: Without edema. LABORATORY DATA: BUN and creatinine of 25 and 0.9, bilirubin is 1.7. The white count is 10 with a hemoglobin of 9.2. IMPRESSION: 1. Recurrent bacteremia. 2. Anemia. 3. History of carcinoid. 4. Chronic indwelling catheter. 5. Echocardiogram could not visualize the valves well. RECOMMENDATIONS: Given these findings, I have discussed with the patient about the reason and the risks, benefits of a SUSIE to visualize the heart valves to rule out endocarditis. The patient is agreeable. We will arrange for the morning. Tim Salcido MD
[2017-12-07] MEDS: oxyCODONE 30 mg Immediate Release Tab PO PRN ×4 (02:04→23:32)
[2017-12-07] MEDS: HYDROmorphone 1 mg/ml ISec IVP PRN ×4 (04:47→21:29)
[2017-12-07] MEDS: Meropenem IV 1 gm in NS 50 ML IVPB SCH ×3 (05:39→21:30)
[2017-12-07 06:55] LABS: ALB/GLOB RATIO 0.7 (1.1-1.8); ALBUMIN 2.4 g/dL (3.0-4.8); ALT/SGPT 38 U/L (7-56); AST/SGOT 45 U/L (17-59); BLOOD UREA NITROGEN 23 mg/dL (7-21); GFR AFRICAN-AMERICAN > 60; GFR NON-AFRICAN AMERICAN > 60
[2017-12-07 06:56] LABS: HEMOGLOBIN 9.1 g/dL (14.0-18.0); MEAN CELL VOLUME 90.8 fl (80.0-105.0); MEAN CORPUSCULAR HGB CONC 33.1 g/dl (31.0-37.0); MEAN PLATELET VOLUME 12.1 fl (7.0-11.0); RBC 3.03 10^6/uL (3.5-6.1); RED CELL DISTRIBUTION WIDTH 17.6 % (11.5-14.5); WHITE BLOOD COUNT 11.1 10^3/ul (4.5-11.0)
--- NOTE | 2017-12-07 07:59 | CP.PCM.PN ---
Subjective - Date & Time of Evaluation Date of Evaluation: 12/07/17 Time of Evaluation: 07:15 - Subjective Subjective: (covering for Dr. Wagner) Patient is seen this morning. He is lying in bed in room 36 bed 1. He complains of chronic pain in his back and abdomen. Objective - Vital Signs/Intake and Output Vital Signs (last 24 hours): Temp Pulse Resp BP Pulse Ox 98.9 F 87 18 106/65 98 12/06/17 16:00 12/06/17 16:00 12/06/17 16:00 12/06/17 16:00 12/06/17 16:00 Intake and Output: 12/07/17 12/07/17 06:59 18:59 Intake Total 820 Output Total 2350 Balance -1530 - Medications Medications: Current Medications Acetaminophen (Tylenol 650 Mg Supp) 650 mg RC Q6H PRN PRN Reason: Headache Acetaminophen (Tylenol 325mg Tab) 650 mg PO Q6 PRN PRN Reason: TEMP>=99.5F Last Admin: 12/03/17 14:11 Dose: 650 mg Acetaminophen (Tylenol 325mg Tab) 650 mg PO Q6 PRN PRN Reason: Headache Acetaminophen (Tylenol 650 Mg Supp) 650 mg RC Q6H PRN PRN Reason: TEMP>=99.5F Amitriptyline HCl (Elavil) 25 mg PO HS [facility] Last Admin: 12/06/17 21:14 Dose: 25 mg Fentanyl (Duragesic) 1 patch TD Q72H [facility] Last Admin: 12/05/17 10:00 Dose: 1 patch Gabapentin (Neurontin) 400 mg PO TID [facility] PRN Reason: Protocol Last Admin: 12/06/17 17:47 Dose: 400 mg Hydromorphone HCl (Dilaudid) 2 mg IVP Q6H PRN PRN Reason: Pain, severe (8-10) Last Admin: 12/07/17 04:47 Dose: 2 mg Sodium Chloride (Sodium Chloride 0.9%) 1,000 mls @ 150 mls/hr IV .Q6H40M [facility] Last Admin: 12/06/17 17:49 Dose: 150 mls/hr Meropenem (Merrem Iv 1 Gm Premix) 50 mls @ 100 mls/hr IVPB Q8 [facility] PRN Reason: Protocol Last Admin: 12/07/17 05:39 Dose: 100 mls/hr Vancomycin HCl (Vancomycin 1gm) 1 gm in 250 mls @ 167 mls/hr IVPB Q12H [facility] PRN Reason: Protocol Stop: 12/09/17 23:31 Last Admin: 12/05/17 23:20 Dose: 167 mls/hr Fat Emulsion Intravenous (Intralipid 20%) 250 mls @ 20.833 mls/hr IV Q24H [facility] Last Admin: 12/06/17 20:58 Dose: Not Given Multivitamins/Vitamin C 10 ml/Chromium/Copper/Manganese/Zinc 1 ml/ Famotidine 40 mg/Insulin Human Regular 12 units / Amino Acids/Electrolytes/Dextrose 2, 015.12 mls @ 83.963 mls/hr IV .Q24H [facility] Last Admin: 12/06/17 20:58 Dose: Not Given Midodrine (Proamatine) 5 mg PO TID [facility] Last Admin: 12/06/17 17:48 Dose: 5 mg Mupirocin (Bactroban Ointment) 0 gm TOP TID [facility] Last Admin: 12/06/17 18:59 Dose: 1 applic Ondansetron HCl (Zofran Inj) 4 mg IVP Q6H PRN PRN Reason: Nausea/Vomiting Last Admin: 12/03/17 16:02 Dose: 4 mg Oxycodone HCl (Oxycodone Immediate Release Tab) 30 mg PO Q6H PRN PRN Reason: Pain, moderate (4-7) Last Admin: 12/07/17 02:04 Dose: 30 mg Pantoprazole Sodium (Protonix Ec Tab) 40 mg PO ACB [facility] Last Admin: 12/06/17 09:38 Dose: 40 mg - Labs Labs: 12/07/17 06:00 12/07/17 06:00 PT 13.1 SECONDS (9.4-12.5) H 11/27/17 18:32 INR 1.15 (0.93-1.08) H 11/27/17 18:32 - Constitutional Appears: No Acute Distress - Head Exam Head Exam: ATRAUMATIC, NORMOCEPHALIC - Respiratory Exam Respiratory Exam: NORMAL BREATHING PATTERN - Cardiovascular Exam Cardiovascular Exam: +S1, +S2 - GI/Abdominal Exam Additional comments: + right nephrostomy, left iliostomy - Extremities Exam Extremities Exam: Normal Inspection - Neurological Exam Neurological Exam: Alert, Awake Assessment and Plan - Assessment and Plan (Free Text) Assessment: Sepsis secondary to cystitis, staphylococcus coagulase negative bacteremia Carcinoid malignancy s/p colectomy, left iliostomy and right nephrostomy Plan: Patient is complaining of pain. He is on oxycodone as needed for pain. Cardiology consult appreciated. He is to go for SUSIE today to rule out endocarditis as patient has multiple blood cultures positive. continue antibiotics as per infectious disease. PICC team was unable to insert PICC line for TPN. Will consult Dr. Tim Calhoun to insert PICC line.
[2017-12-07] MEDS: Sodium Chloride 0.9% 1,000 ML IV SCH (08:30)
[2017-12-07] MEDS: Pantoprazole 40 mg EC Tab PO SCH (10:35)
[2017-12-07] MEDS ORDERED: Lidocaine 2% Inj (20ml) ONE (10:49)
[2017-12-07] MEDS ORDERED: Iodixanol 320 MG/ML 100 ML BOTTLE IV ONE (11:06)
[2017-12-07] MEDS ORDERED: Propofol 10 mg/ml Inj (20 ML) ONE (11:35)
[2017-12-07] MEDS ORDERED: Etomidate 20 mg/10ml Inj IV ONE (11:35)
[2017-12-07] MEDS ORDERED: Midazolam 2 MG/2 ML VIAL ONE (11:35)
[2017-12-07] MEDS ORDERED: Sodium Chloride 0.9% 1,000 ML IV SCH (12:15)
--- NOTE | 2017-12-07 14:16 | CP.PCM.PN ---
Subjective - Date & Time of Evaluation Date of Evaluation: 12/07/17 Time of Evaluation: 09:50 - Subjective Subjective: right PICC / port removed yesterday but unsuccessful in placing new PICC line yesterday. Dr. Calhoun consulted to attempt today. No fevers, no diarrhea. Objective - Vital Signs/Intake and Output Vital Signs (last 24 hours): Temp Pulse Resp BP Pulse Ox 98.9 F 87 18 106/65 98 12/06/17 16:00 12/06/17 16:00 12/06/17 16:00 12/06/17 16:00 12/06/17 16:00 Intake and Output: 12/06/17 12/07/17 18:59 06:59 Intake Total 240 820 Output Total 1999 2350 Balance -1760 -1530 - Medications Medications: Current Medications Acetaminophen (Tylenol 650 Mg Supp) 650 mg RC Q6H PRN PRN Reason: Headache Acetaminophen (Tylenol 325mg Tab) 650 mg PO Q6 PRN PRN Reason: TEMP>=99.5F Last Admin: 12/03/17 14:11 Dose: 650 mg Acetaminophen (Tylenol 325mg Tab) 650 mg PO Q6 PRN PRN Reason: Headache Acetaminophen (Tylenol 650 Mg Supp) 650 mg RC Q6H PRN PRN Reason: TEMP>=99.5F Amitriptyline HCl (Elavil) 25 mg PO HS [facility] Last Admin: 12/06/17 21:14 Dose: 25 mg Fentanyl (Duragesic) 1 patch TD Q72H [facility] Last Admin: 12/05/17 10:00 Dose: 1 patch Gabapentin (Neurontin) 400 mg PO TID [facility] PRN Reason: Protocol Last Admin: 12/06/17 17:47 Dose: 400 mg Hydromorphone HCl (Dilaudid) 2 mg IVP Q6H PRN PRN Reason: Pain, severe (8-10) Last Admin: 12/07/17 04:47 Dose: 2 mg Sodium Chloride (Sodium Chloride 0.9%) 1,000 mls @ 150 mls/hr IV .Q6H40M [facility] Last Admin: 12/06/17 17:49 Dose: 150 mls/hr Meropenem (Merrem Iv 1 Gm Premix) 50 mls @ 100 mls/hr IVPB Q8 [facility] PRN Reason: Protocol Last Admin: 12/07/17 05:39 Dose: 100 mls/hr Vancomycin HCl (Vancomycin 1gm) 1 gm in 250 mls @ 167 mls/hr IVPB Q12H [facility] PRN Reason: Protocol Stop: 12/09/17 23:31 Last Admin: 12/05/17 23:20 Dose: 167 mls/hr Fat Emulsion Intravenous (Intralipid 20%) 250 mls @ 20.833 mls/hr IV Q24H [facility] Last Admin: 12/06/17 20:58 Dose: Not Given Multivitamins/Vitamin C 10 ml/Chromium/Copper/Manganese/Zinc 1 ml/ Famotidine 40 mg/Insulin Human Regular 12 units / Amino Acids/Electrolytes/Dextrose 2, 015.12 mls @ 83.963 mls/hr IV .Q24H [facility] Last Admin: 12/06/17 20:58 Dose: Not Given Midodrine (Proamatine) 5 mg PO TID [facility] Last Admin: 12/06/17 17:48 Dose: 5 mg Mupirocin (Bactroban Ointment) 0 gm TOP TID [facility] Last Admin: 12/06/17 18:59 Dose: 1 applic Ondansetron HCl (Zofran Inj) 4 mg IVP Q6H PRN PRN Reason: Nausea/Vomiting Last Admin: 12/03/17 16:02 Dose: 4 mg Oxycodone HCl (Oxycodone Immediate Release Tab) 30 mg PO Q6H PRN PRN Reason: Pain, moderate (4-7) Last Admin: 12/07/17 02:04 Dose: 30 mg Pantoprazole Sodium (Protonix Ec Tab) 40 mg PO ACB [facility] Last Admin: 12/06/17 09:38 Dose: 40 mg - Labs Labs: 12/06/17 06:19 12/06/17 06:19 PT 13.1 SECONDS (9.4-12.5) H 11/27/17 18:32 INR 1.15 (0.93-1.08) H 11/27/17 18:32 - Constitutional Appears: Non-toxic, Chronically Ill - Head Exam Head Exam: NORMAL INSPECTION - ENT Exam ENT Exam: Mucous Membranes Moist - Neck Exam Neck Exam: absent: Meningismus - Respiratory Exam Respiratory Exam: Decreased Breath Sounds - Cardiovascular Exam Cardiovascular Exam: +S1, +S2 - GI/Abdominal Exam GI & Abdominal Exam: Soft. absent: Tenderness Assessment and Plan - Assessment and Plan (Free Text) Plan: Assessment Consider sepsis due to right sided pyelonephritis with associated cystitis, with persistent coagulase negative staph bacteremia probably port/ central line as the source S/P removal yesterday pneumobilia and elevated bilirubin, consider S/P cholecystectomy R/O choledocholethiasis carcinoma of GI tract S/P colectomy and ileostomy S/P nephrostomy tube placement on the right 2 years ago history of G-tube placement chronic renal failure Plan / blood cx are now negative (3 consecutive blood cx are still positive for the coagulase negative staph); continue IV Vancomycin and will continue Merrem ; ultrasound of the IV line area does not show DVT, 2D echo does not show vegetations - will need at least 1 week of antibiotics after line removal follow up echocardiogram will continue to monitor clinically overall prognosis is poor
[2017-12-07] MEDS: Vancomycin 1gm in NS 250ml 1 GM/250 ML BAG IVPB SCH ×2 (15:45→23:25)
--- NOTE | 2017-12-07 16:19 | VASCULAR ---
PROCEDURE: Ultrasound and fluoroscopically placed left upper extremity PICC line. HISTORY: Sepsis. Long-term IV antibiotics. Needs PICC line. PHYSICIAN(S): Tim Calhoun MD. TECHNIQUE: The relative risks and indications of the procedure were explained to the patient and consent obtained. The patient was placed supine on the arteriogram table and the left arm prepped and draped in the usual sterile fashion. A tourniquet was applied to the left axilla. 1% Xylocaine was used to anesthetize the skin and soft tissues at the puncture site above the elbow. The left basilic vein was punctured under direct ultrasound guidance with a micropuncture set. A 0.018 guidewire was advanced centrally and used to measure the length to the SVC/RA junction. A 5 Uzbek dual-lumen PICC line 50 cm long was advanced to the SVC/RA junction. The catheter was flushed and secured. The patient tolerated the procedure well. IMPRESSION: 1. Ultrasound and fluoroscopically placed left upper extremity PICC line. A 5 Uzbek dual lumen PICC line 50 cm long was advanced to the SVC/RA junction.
--- NOTE | 2017-12-07 16:52 | PN ---
DATE: 12/07/2017 CARDIOLOGY FOLLOWUP SUBJECTIVE: The patient tolerated the SUSIE well. OBJECTIVE: VITAL SIGNS: Blood pressure is 112/67, heart rate in the 70s. NECK: Negative JVD. LUNGS: Without rales. HEART: Reveals S1, S2. EXTREMITIES: Without edema. LABORATORY DATA: Hemoglobin is 9.1. Chemistries: BUN and creatinine 23 and 1. Preliminary SUSIE reveals no vegetations. IMPRESSION: 1. Sepsis. 2. Bacteremia. 3. No evidence for endocarditis. 4. History of carcinoid. 5. Anemia. Given these findings, the patient is doing well. We will continue antibiotics for one week. Tim Salcido MD
[2017-12-07 17:07] VITALS: RESP 20
--- NOTE | 2017-12-07 18:54 | CARD ---
APPROVED REPORT EXAM: Transesophageal echocardiogram with color flow Doppler. INDICATION Infection : Rule out subacute bacterial endocarditis Reason For Test : Rule out endocarditis. PROCEDURE After obtaining informed consent, patient underwent transesophageal echo in the Echo Lab. Type of Sedation : Sedation was provided by anesthesiologist. Sedation was achieved with intravenously. Transesophageal probe was inserted and advanced into esophagus without difficulty. The SUSIE was performed without complications. Throughout the procedure, the blood pressure, pulse oximetry, cardiac rhythm, and rate were monitored. The patient tolerated the procedure without adverse effects. Recovery from conscious sedation was uneventful and vital signs were stable. LEFT VENTRICLE The left ventricle is normal size. There is normal left ventricular wall thickness. The left ventricular function is normal. The left ventricular ejection fraction is within the normal range. RIGHT VENTRICLE The right ventricle is normal size. There is normal right ventricular wall thickness. ATRIA The left atrium size is normal. The right atrium size is normal. AORTIC VALVE The aortic valve is normal in structure. MITRAL VALVE The mitral valve is normal in structure. TRICUSPID VALVE The tricuspid valve is normal in structure. PULMONIC VALVE The pulmonary valve is normal in structure. GREAT VESSELS The ascending aorta is normal in size. <Conclusion> Normal valvular structures , No vegitation seen
[2017-12-07] MEDS: Fat Emulsion 20% IV 250 ML IV SCH (20:02)
[2017-12-07] MEDS: [UNRECOGNIZED DRUG - NUTRITION] IV SCH (20:03)
--- NOTE | 2017-12-07 22:09 | CP.PCM.PN ---
Subjective - Date & Time of Evaluation Date of Evaluation: 12/07/17 Time of Evaluation: 18:00 - Subjective Subjective: Tolerated SUSIE well. Objective - Vital Signs/Intake and Output Vital Signs (last 24 hours): Temp Pulse Resp BP Pulse Ox 97.9 F 79 20 111/73 99 12/07/17 16:00 12/07/17 16:00 12/07/17 16:00 12/07/17 16:00 12/07/17 16:00 - Medications Medications: Current Medications Acetaminophen (Tylenol 650 Mg Supp) 650 mg RC Q6H PRN PRN Reason: Headache Acetaminophen (Tylenol 325mg Tab) 650 mg PO Q6 PRN PRN Reason: TEMP>=99.5F Last Admin: 12/03/17 14:11 Dose: 650 mg Acetaminophen (Tylenol 325mg Tab) 650 mg PO Q6 PRN PRN Reason: Headache Acetaminophen (Tylenol 650 Mg Supp) 650 mg RC Q6H PRN PRN Reason: TEMP>=99.5F Amitriptyline HCl (Elavil) 25 mg PO HS [facility] Last Admin: 12/07/17 21:30 Dose: 25 mg Fentanyl (Duragesic) 1 patch TD Q72H [facility] Last Admin: 12/05/17 10:00 Dose: 1 patch Gabapentin (Neurontin) 400 mg PO TID [facility] PRN Reason: Protocol Last Admin: 12/07/17 18:13 Dose: 400 mg Hydromorphone HCl (Dilaudid) 2 mg IVP Q6H PRN PRN Reason: Pain, severe (8-10) Last Admin: 12/07/17 21:29 Dose: 2 mg Sodium Chloride (Sodium Chloride 0.9%) 1,000 mls @ 150 mls/hr IV .Q6H40M [facility] Last Admin: 12/07/17 08:30 Dose: 150 mls/hr Meropenem (Merrem Iv 1 Gm Premix) 50 mls @ 100 mls/hr IVPB Q8 [facility] PRN Reason: Protocol Last Admin: 12/07/17 21:30 Dose: 100 mls/hr Vancomycin HCl (Vancomycin 1gm) 1 gm in 250 mls @ 167 mls/hr IVPB Q12H [facility] PRN Reason: Protocol Stop: 12/09/17 23:31 Last Admin: 12/07/17 15:45 Dose: 167 mls/hr Fat Emulsion Intravenous (Intralipid 20%) 250 mls @ 20.833 mls/hr IV Q24H [facility] Last Admin: 12/07/17 20:02 Dose: 20.833 mls/hr Multivitamins/Vitamin C 10 ml/Chromium/Copper/Manganese/Zinc 1 ml/ Famotidine 40 mg/Insulin Human Regular 12 units / Amino Acids/Electrolytes/Dextrose 2, 015.12 mls @ 83.963 mls/hr IV .Q24H [facility] Last Admin: 12/07/17 20:03 Dose: 83.963 mls/hr Midodrine (Proamatine) 5 mg PO TID [facility] Last Admin: 12/07/17 18:13 Dose: 5 mg Mupirocin (Bactroban Ointment) 0 gm TOP TID [facility] Last Admin: 12/07/17 17:59 Dose: Not Given Ondansetron HCl (Zofran Inj) 4 mg IVP Q6H PRN PRN Reason: Nausea/Vomiting Last Admin: 12/03/17 16:02 Dose: 4 mg Oxycodone HCl (Oxycodone Immediate Release Tab) 30 mg PO Q6H PRN PRN Reason: Pain, moderate (4-7) Last Admin: 12/07/17 14:31 Dose: 30 mg Pantoprazole Sodium (Protonix Ec Tab) 40 mg PO ACB [facility] Last Admin: 12/07/17 10:35 Dose: Not Given - Labs Labs: 12/07/17 06:00 12/07/17 06:00 PT 13.1 SECONDS (9.4-12.5) H 11/27/17 18:32 INR 1.15 (0.93-1.08) H 11/27/17 18:32 - Head Exam Head Exam: ATRAUMATIC - Eye Exam Eye Exam: Normal appearance - ENT Exam ENT Exam: Mucous Membranes Dry - Respiratory Exam Respiratory Exam: NORMAL BREATHING PATTERN - Cardiovascular Exam Cardiovascular Exam: +S1, +S2 - GI/Abdominal Exam GI & Abdominal Exam: Normal Bowel Sounds Assessment and Plan (1) Anemia Assessment & Plan: chronic disease, recent chemotherapy s/p PRBC transfusion Status: Acute (2) Carcinoid tumor Assessment & Plan: outpatient f/u and treatment with primary oncologist. Status: Acute
[2017-12-08] MEDS: Sodium Chloride 0.9% 1,000 ML IV SCH (02:12)
[2017-12-08] MEDS: HYDROmorphone 1 mg/ml ISec IVP PRN ×3 (03:49→15:37)
[2017-12-08] MEDS: Meropenem IV 1 gm in NS 50 ML IVPB SCH ×2 (05:55→14:42)
[2017-12-08] MEDS: oxyCODONE 30 mg Immediate Release Tab PO PRN ×2 (06:10→12:52)
[2017-12-08] MEDS: Pantoprazole 40 mg EC Tab PO SCH (06:33)
[2017-12-08 07:00] LABS: ALB/GLOB RATIO 0.7 (1.1-1.8); ALBUMIN 2.4 g/dL (3.0-4.8); ALT/SGPT 42 U/L (7-56); AST/SGOT 48 U/L (17-59); BLOOD UREA NITROGEN 22 mg/dL (7-21); CALCIUM 8.6 mg/dL (8.4-10.5); GFR AFRICAN-AMERICAN > 60; GFR NON-AFRICAN AMERICAN > 60
[2017-12-08 07:19] LABS: BASO # 0.06 K/mm3 (0.0-2.0); BASO % 0.8 % (0.0-3.0); EOS # 0.4 (0.0-0.7); EOS % 4.6 % (1.5-5.0); GRAN # 4.03 (1.4-6.5); GRAN % 51.8 % (50.0-68.0); HEMOGLOBIN 8.7 g/dL (14.0-18.0); LYMPH # 1.8 (1.2-3.4); LYMPH % 23.3 % (22.0-35.0); MEAN CELL VOLUME 91.2 fl (80.0-105.0); MEAN CORPUSCULAR HEMOGLOBIN 29.6 pg (25.0-35.0); MEAN CORPUSCULAR HGB CONC 32.5 g/dl (31.0-37.0); MEAN PLATELET VOLUME 12.2 fl (7.0-11.0); MONO # 1.5 (0.1-0.6); MONO % 19.5 % (1.0-6.0); RBC 2.94 10^6/uL (3.5-6.1); RED CELL DISTRIBUTION WIDTH 17.7 % (11.5-14.5); WHITE BLOOD COUNT 7.8 10^3/ul (4.5-11.0)
--- NOTE | 2017-12-08 08:07 | CP.PCM.PN ---
Subjective - Date & Time of Evaluation Date of Evaluation: 12/08/17 Time of Evaluation: 07:30 - Subjective Subjective: (covering for Dr. Wagner) Patient is seen this morning. He has no new complaints. Objective - Vital Signs/Intake and Output Vital Signs (last 24 hours): Temp Pulse Resp BP Pulse Ox 97.9 F 79 20 111/73 99 12/07/17 16:00 12/07/17 16:00 12/07/17 16:00 12/07/17 16:00 12/07/17 16:00 Intake and Output: 12/08/17 12/08/17 06:59 18:59 Intake Total 540 240 Output Total 1200 1150 Balance -660 -910 - Medications Medications: Current Medications Acetaminophen (Tylenol 650 Mg Supp) 650 mg RC Q6H PRN PRN Reason: Headache Acetaminophen (Tylenol 325mg Tab) 650 mg PO Q6 PRN PRN Reason: TEMP>=99.5F Last Admin: 12/03/17 14:11 Dose: 650 mg Acetaminophen (Tylenol 325mg Tab) 650 mg PO Q6 PRN PRN Reason: Headache Last Admin: 12/08/17 02:10 Dose: 650 mg Acetaminophen (Tylenol 650 Mg Supp) 650 mg RC Q6H PRN PRN Reason: TEMP>=99.5F Amitriptyline HCl (Elavil) 25 mg PO HS [facility] Last Admin: 12/07/17 21:30 Dose: 25 mg Fentanyl (Duragesic) 1 patch TD Q72H [facility] Last Admin: 12/05/17 10:00 Dose: 1 patch Gabapentin (Neurontin) 400 mg PO TID [facility] PRN Reason: Protocol Last Admin: 12/07/17 18:13 Dose: 400 mg Hydromorphone HCl (Dilaudid) 2 mg IVP Q6H PRN PRN Reason: Pain, severe (8-10) Last Admin: 12/08/17 03:49 Dose: 2 mg Sodium Chloride (Sodium Chloride 0.9%) 1,000 mls @ 150 mls/hr IV .Q6H40M [facility] Last Admin: 12/08/17 02:12 Dose: 150 mls/hr Meropenem (Merrem Iv 1 Gm Premix) 50 mls @ 100 mls/hr IVPB Q8 [facility] PRN Reason: Protocol Last Admin: 12/08/17 05:55 Dose: 100 mls/hr Vancomycin HCl (Vancomycin 1gm) 1 gm in 250 mls @ 167 mls/hr IVPB Q12H [facility] PRN Reason: Protocol Stop: 12/09/17 23:31 Last Admin: 12/07/17 23:25 Dose: 167 mls/hr Fat Emulsion Intravenous (Intralipid 20%) 250 mls @ 20.833 mls/hr IV Q24H [facility] Last Admin: 12/07/17 20:02 Dose: 20.833 mls/hr Multivitamins/Vitamin C 10 ml/Chromium/Copper/Manganese/Zinc 1 ml/ Famotidine 40 mg/Insulin Human Regular 12 units / Amino Acids/Electrolytes/Dextrose 2, 015.12 mls @ 83.963 mls/hr IV .Q24H [facility] Last Admin: 12/07/17 20:03 Dose: 83.963 mls/hr Midodrine (Proamatine) 5 mg PO TID [facility] Last Admin: 12/07/17 18:13 Dose: 5 mg Mupirocin (Bactroban Ointment) 0 gm TOP TID [facility] Last Admin: 12/07/17 17:59 Dose: Not Given Ondansetron HCl (Zofran Inj) 4 mg IVP Q6H PRN PRN Reason: Nausea/Vomiting Last Admin: 12/03/17 16:02 Dose: 4 mg Oxycodone HCl (Oxycodone Immediate Release Tab) 30 mg PO Q6H PRN PRN Reason: Pain, moderate (4-7) Last Admin: 12/08/17 06:10 Dose: 30 mg Pantoprazole Sodium (Protonix Ec Tab) 40 mg PO ACB [facility] Last Admin: 12/08/17 06:33 Dose: 40 mg - Labs Labs: 12/08/17 06:10 12/08/17 06:10 PT 13.1 SECONDS (9.4-12.5) H 11/27/17 18:32 INR 1.15 (0.93-1.08) H 11/27/17 18:32 - Constitutional Appears: No Acute Distress - Head Exam Head Exam: ATRAUMATIC, NORMOCEPHALIC - Respiratory Exam Respiratory Exam: Clear to Ausculation Bilateral, NORMAL BREATHING PATTERN - Cardiovascular Exam Cardiovascular Exam: +S1, +S2 - GI/Abdominal Exam GI & Abdominal Exam: Soft Additional comments: + right nephrostomy, + L iliostomy - Extremities Exam Extremities Exam: absent: Pedal Edema - Neurological Exam Neurological Exam: Alert, Awake, Oriented x3 Assessment and Plan - Assessment and Plan (Free Text) Assessment: Sepsis/coagulase negative bacteremia 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 PICC line removed and new PICC line placed. Patient with multiple blood cultures positive. Arrangements will be made for patient to go home with home antibiotic infusion for 1 week as per recommendation by Dr. Shepherd, infectious disease specialist. Patient will continue his home medications and followup with his oncologist at [facility].
[2017-12-08] MEDS ORDERED: Sodium Chloride 0.9% 500 ML IV SCH (11:30)
--- NOTE | 2017-12-08 11:36 | CP.PCM.PN ---
Subjective - Date & Time of Evaluation Date of Evaluation: 12/08/17 Time of Evaluation: 10:35 - Subjective Subjective: Resting comfortably in bed currently, no fevers, not in distress. No diarrhea, no nausea. Objective - Vital Signs/Intake and Output Vital Signs (last 24 hours): Temp Pulse Resp BP Pulse Ox 97.9 F 83 20 98/56 L 98 12/08/17 08:27 12/08/17 08:27 12/08/17 08:27 12/08/17 08:27 12/08/17 08:27 Intake and Output: 12/08/17 12/08/17 06:59 18:59 Intake Total 540 240 Output Total 1200 1150 Balance -660 -910 - Medications Medications: Current Medications Acetaminophen (Tylenol 650 Mg Supp) 650 mg RC Q6H PRN PRN Reason: Headache Acetaminophen (Tylenol 325mg Tab) 650 mg PO Q6 PRN PRN Reason: TEMP>=99.5F Last Admin: 12/03/17 14:11 Dose: 650 mg Acetaminophen (Tylenol 325mg Tab) 650 mg PO Q6 PRN PRN Reason: Headache Last Admin: 12/08/17 02:10 Dose: 650 mg Acetaminophen (Tylenol 650 Mg Supp) 650 mg RC Q6H PRN PRN Reason: TEMP>=99.5F Amitriptyline HCl (Elavil) 25 mg PO HS [facility] Last Admin: 12/07/17 21:30 Dose: 25 mg Fentanyl (Duragesic) 1 patch TD Q72H [facility] Last Admin: 12/05/17 10:00 Dose: 1 patch Gabapentin (Neurontin) 400 mg PO TID [facility] PRN Reason: Protocol Last Admin: 12/07/17 18:13 Dose: 400 mg Hydromorphone HCl (Dilaudid) 2 mg IVP Q6H PRN PRN Reason: Pain, severe (8-10) Last Admin: 12/08/17 03:49 Dose: 2 mg Sodium Chloride (Sodium Chloride 0.9%) 1,000 mls @ 150 mls/hr IV .Q6H40M [facility] Last Admin: 12/08/17 02:12 Dose: 150 mls/hr Meropenem (Merrem Iv 1 Gm Premix) 50 mls @ 100 mls/hr IVPB Q8 [facility] PRN Reason: Protocol Last Admin: 12/08/17 05:55 Dose: 100 mls/hr Vancomycin HCl (Vancomycin 1gm) 1 gm in 250 mls @ 167 mls/hr IVPB Q12H [facility] PRN Reason: Protocol Stop: 12/09/17 23:31 Last Admin: 12/07/17 23:25 Dose: 167 mls/hr Fat Emulsion Intravenous (Intralipid 20%) 250 mls @ 20.833 mls/hr IV Q24H [facility] Last Admin: 12/07/17 20:02 Dose: 20.833 mls/hr Multivitamins/Vitamin C 10 ml/Chromium/Copper/Manganese/Zinc 1 ml/ Famotidine 40 mg/Insulin Human Regular 12 units / Amino Acids/Electrolytes/Dextrose 2, 015.12 mls @ 83.963 mls/hr IV .Q24H [facility] Last Admin: 12/07/17 20:03 Dose: 83.963 mls/hr Midodrine (Proamatine) 5 mg PO TID [facility] Last Admin: 12/07/17 18:13 Dose: 5 mg Mupirocin (Bactroban Ointment) 0 gm TOP TID [facility] Last Admin: 12/07/17 17:59 Dose: Not Given Ondansetron HCl (Zofran Inj) 4 mg IVP Q6H PRN PRN Reason: Nausea/Vomiting Last Admin: 12/03/17 16:02 Dose: 4 mg Oxycodone HCl (Oxycodone Immediate Release Tab) 30 mg PO Q6H PRN PRN Reason: Pain, moderate (4-7) Last Admin: 12/08/17 06:10 Dose: 30 mg Pantoprazole Sodium (Protonix Ec Tab) 40 mg PO ACB [facility] Last Admin: 12/08/17 06:33 Dose: 40 mg - Labs Labs: 12/08/17 06:10 12/08/17 06:10 PT 13.1 SECONDS (9.4-12.5) H 11/27/17 18:32 INR 1.15 (0.93-1.08) H 11/27/17 18:32 - Constitutional Appears: Non-toxic, Chronically Ill - Head Exam Head Exam: NORMAL INSPECTION - ENT Exam ENT Exam: Mucous Membranes Moist - Respiratory Exam Respiratory Exam: Decreased Breath Sounds - Cardiovascular Exam Cardiovascular Exam: +S1, +S2 - GI/Abdominal Exam GI & Abdominal Exam: Soft. absent: Tenderness Assessment and Plan - Assessment and Plan (Free Text) Plan: Assessment Consider sepsis due to right sided pyelonephritis with associated cystitis, with persistent coagulase negative staph bacteremia probably port/ central line as the source S/P removal 2 days ago pneumobilia and elevated bilirubin, consider S/P cholecystectomy R/O choledocholethiasis carcinoma of GI tract S/P colectomy and ileostomy S/P nephrostomy tube placement on the right 2 years ago history of G-tube placement chronic renal failure Plan 12/06 blood cx are now negative (3 consecutive blood cx were positive for the coagulase negative staph prior to this); the coagulase negative staph is oxacillin sensitive - continue Merrem ; ultrasound of the IV line area does not show DVT, 2D echo does not show vegetations - will need at least 1 week of antibiotics after line removal (which was removed 2 days ago) SUSIE was negative for vegetations will continue to monitor clinically while the patient is in the hospital overall prognosis is poor
--- NOTE | 2017-12-08 15:52 | PN ---
DATE: 12/08/2017 CARDIOLOGY FOLLOWUP SUBJECTIVE: The patient is asymptomatic. PHYSICAL EXAMINATION: VITAL SIGNS: Blood pressure is 98/56, the heart rate in the 80s. NECK: Negative JVD. LUNGS: Without rales. HEART: Reveals S1, S2. EXTREMITIES: Without edema. LABORATORY DATA: Hemoglobin is 8.7, white count is 7.8. Chemistries, BUN and creatinine 22 and 0.9. IMPRESSION: Patient is hemodynamically stable. No evidence for endocarditis on SUSIE. PLAN: No further cardiac workup is necessary at this time. We will sign off the case today. Tim Salcido MD
[2017-12-08 16:43] VITALS: BP 113/72; PULSE 80; TEMP 98.5; O2SAT 97
--- NOTE | 2017-12-08 16:58 | CP.PCM.PN ---
Subjective - Date & Time of Evaluation Date of Evaluation: 12/08/17 Time of Evaluation: 16:00 - Subjective Subjective: Feeling better. Objective - Vital Signs/Intake and Output Vital Signs (last 24 hours): Temp Pulse Resp BP Pulse Ox 98.5 F 80 20 113/72 97 12/08/17 16:00 12/08/17 16:00 12/08/17 16:00 12/08/17 16:00 12/08/17 16:00 Intake and Output: 12/08/17 12/08/17 06:59 18:59 Intake Total 540 240 Output Total 1200 1150 Balance -660 -910 - Medications Medications: Current Medications Acetaminophen (Tylenol 650 Mg Supp) 650 mg RC Q6H PRN PRN Reason: Headache Acetaminophen (Tylenol 325mg Tab) 650 mg PO Q6 PRN PRN Reason: TEMP>=99.5F Last Admin: 12/03/17 14:11 Dose: 650 mg Acetaminophen (Tylenol 325mg Tab) 650 mg PO Q6 PRN PRN Reason: Headache Last Admin: 12/08/17 02:10 Dose: 650 mg Acetaminophen (Tylenol 650 Mg Supp) 650 mg RC Q6H PRN PRN Reason: TEMP>=99.5F Amitriptyline HCl (Elavil) 25 mg PO HS [facility] Last Admin: 12/07/17 21:30 Dose: 25 mg Fentanyl (Duragesic) 1 patch TD Q72H [facility] Last Admin: 12/08/17 09:30 Dose: 1 patch Gabapentin (Neurontin) 400 mg PO TID [facility] PRN Reason: Protocol Last Admin: 12/08/17 14:42 Dose: 400 mg Hydromorphone HCl (Dilaudid) 2 mg IVP Q6H PRN PRN Reason: Pain, severe (8-10) Last Admin: 12/08/17 15:37 Dose: 2 mg Meropenem (Merrem Iv 1 Gm Premix) 50 mls @ 100 mls/hr IVPB Q8 [facility] PRN Reason: Protocol Last Admin: 12/08/17 14:42 Dose: 100 mls/hr Fat Emulsion Intravenous (Intralipid 20%) 250 mls @ 20.833 mls/hr IV Q24H [facility] Stop: 12/11/17 17:59 Last Admin: 12/07/17 20:02 Dose: 20.833 mls/hr Multivitamins/Vitamin C 10 ml/Chromium/Copper/Manganese/Zinc 1 ml/ Famotidine 40 mg/Insulin Human Regular 12 units / Amino Acids/Electrolytes/Dextrose 2, 015.12 mls @ 83.963 mls/hr IV .Q24H [facility] Stop: 12/11/17 17:59 Last Admin: 12/07/17 20:03 Dose: 83.963 mls/hr Sodium Chloride (Sodium Chloride 0.9%) 500 mls @ 150 mls/hr IV .Q3H20M [facility] Last Admin: 12/08/17 11:24 Dose: 150 mls/hr Midodrine (Proamatine) 5 mg PO TID [facility] Last Admin: 12/08/17 14:42 Dose: 5 mg Mupirocin (Bactroban Ointment) 0 gm TOP TID [facility] Last Admin: 12/08/17 14:43 Dose: 1 applic Ondansetron HCl (Zofran Inj) 4 mg IVP Q6H PRN PRN Reason: Nausea/Vomiting Last Admin: 12/03/17 16:02 Dose: 4 mg Oxycodone HCl (Oxycodone Immediate Release Tab) 30 mg PO Q6H PRN PRN Reason: Pain, moderate (4-7) Last Admin: 12/08/17 12:52 Dose: 30 mg Pantoprazole Sodium (Protonix Ec Tab) 40 mg PO ACB [facility] Last Admin: 12/08/17 06:33 Dose: 40 mg - Labs Labs: 12/08/17 06:10 12/08/17 06:10 PT 13.1 SECONDS (9.4-12.5) H 11/27/17 18:32 INR 1.15 (0.93-1.08) H 11/27/17 18:32 - Head Exam Head Exam: ATRAUMATIC - Eye Exam Eye Exam: Normal appearance - ENT Exam ENT Exam: Mucous Membranes Dry - Respiratory Exam Respiratory Exam: NORMAL BREATHING PATTERN - Cardiovascular Exam Cardiovascular Exam: +S1, +S2 - GI/Abdominal Exam GI & Abdominal Exam: Normal Bowel Sounds Assessment and Plan (1) Anemia Assessment & Plan: chronic disease and recent chemotherapy s/p PRBC transfusion Status: Acute (2) Carcinoid tumor Assessment & Plan: outpatient f/u with primary oncologist Status: Acute
== END 2017-12-08 18:26 | DRG 698 ==
LOC: ED 17:10 → ERH 20:28 → 3RSO 22:29 → 3RNO 11-28 00:43
PROVIDERS: ADMIT Internal Medicine; ATTEND Internal Medicine
PROC: 0T25X0Z Change Drainage Device in Kidney, External Approach (ICD-10-PCS; principal; 2017-12-04)
PROC: 02HV33Z Insertion of Infusion Device into Superior Vena Cava, Percutaneous Approach (ICD-10-PCS; 2017-12-04)
PROC: B548ZZA Ultrasonography of Superior Vena Cava, Guidance (ICD-10-PCS; 2017-12-04)
PROC: B246ZZ4 Ultrasonography of Right and Left Heart, Transesophageal (ICD-10-PCS; 2017-12-07)
PROC: B51N1ZA Fluoroscopy of Left Upper Extremity Veins using Low Osmolar Contrast, Guidance (ICD-10-PCS; 2017-12-07)
DX: T83.518A Infection and inflammatory reaction due to other urinary catheter, initial encounter (principal); A41.2 Sepsis due to unspecified staphylococcus; E44.0 Moderate protein-calorie malnutrition; F11.20 Opioid dependence, uncomplicated; K56.609 Unspecified intestinal obstruction, unspecified as to partial versus complete obstruction; L03.113 Cellulitis of right upper limb; N13.6 Pyonephrosis; N17.9 Acute kidney failure, unspecified; R17 Unspecified jaundice; R64 Cachexia; T82.7XXA Infection and inflammatory reaction due to other cardiac and vascular devices, implants and grafts, initial encounter; B95.61 Methicillin susceptible Staphylococcus aureus infection as the cause of diseases classified elsewhere; B95.7 Other staphylococcus as the cause of diseases classified elsewhere; B96.89 Other specified bacterial agents as the cause of diseases classified elsewhere; D50.9 Iron deficiency anemia, unspecified; D63.0 Anemia in neoplastic disease; D63.1 Anemia in chronic kidney disease; D64.81 Anemia due to antineoplastic chemotherapy; D72.810 Lymphocytopenia; E83.39 Other disorders of phosphorus metabolism; E86.0 Dehydration; E86.1 Hypovolemia; E87.6 Hypokalemia; G62.9 Polyneuropathy, unspecified; G89.29 Other chronic pain; I80.8 Phlebitis and thrombophlebitis of other sites; N18.3 Chronic kidney disease, stage 3 (moderate); N20.0 Calculus of kidney; N99.522 Malfunction of incontinent external stoma of urinary tract; Q63.8 Other specified congenital malformations of kidney; T45.1X5A Adverse effect of antineoplastic and immunosuppressive drugs, initial encounter; T83.012A Breakdown (mechanical) of nephrostomy catheter, initial encounter; T83.092A Other mechanical complication of nephrostomy catheter, initial encounter; Y73.2 Prosthetic and other implants, materials and accessory gastroenterology and urology devices associated with adverse incidents; Z87.891 Personal history of nicotine dependence; Z90.49 Acquired absence of other specified parts of digestive tract; Z93.1 Gastrostomy status; Z93.2 Ileostomy status; Z93.3 Colostomy status; Z88.5 Allergy status to narcotic agent; Z87.892 Personal history of anaphylaxis; Z85.89 Personal history of malignant neoplasm of other organs and systems; R00.0 Tachycardia, unspecified; I95.9 Hypotension, unspecified

== ENCOUNTER 2017-12-08 18:26 | Inpatient (IN) | payer MEDICAID, OTHER ==
[2017-12-08] MEDS ORDERED: oxyCODONE 30 mg Immediate Release Tab PO PRN (19:18)
[2017-12-08 19:36] VITALS: BMI 19.1
[2017-12-08] MEDS ORDERED: HYDROmorphone 2 mg/ml ISec IVP PRN (20:01)
[2017-12-08] MEDS: Fat Emulsion 20% IV 250 ML IV SCH (20:54)
[2017-12-08] MEDS: [UNRECOGNIZED DRUG - NUTRITION] IV SCH (20:55)
[2017-12-08] MEDS: oxyCODONE 15 mg Immediate Release Tab PO PRN (21:34)
[2017-12-08] MEDS: Sodium Chloride 0.9% 500 ML IV SCH (21:38)
[2017-12-08] MEDS: Meropenem IV 1 gm in NS 50 ML IVPB SCH (21:46)
[2017-12-09] MEDS: Sodium Chloride 0.9% 500 ML IV SCH ×5 (02:27→22:07)
[2017-12-09] MEDS: oxyCODONE 15 mg Immediate Release Tab PO PRN ×3 (04:55→18:48)
[2017-12-09] MEDS: Pantoprazole 40 mg EC Tab PO SCH ×2 (05:38→18:44)
[2017-12-09] MEDS: Meropenem IV 1 gm in NS 50 ML IVPB SCH ×3 (05:38→21:49)
--- NOTE | 2017-12-09 08:17 | CP.PCM.HP ---
History of Present Illness - History of Present Illness History of Present Illness: This is a 62 year old male with history of carcinoid malignancy, status post multiple surgeries with left iliostomy and right nephrostomy who developed sepsis with staphylococcus coagulase negative bacteremia. Patient's PICC line was removed and a new PICC line was inserted. Patient has been admitted to the transitional care unit for completion of 7 days of IV antibiotics. Present on Admission - Present on Admission Any Indicators Present on Admission: No History of DVT/PE: No History of Uncontrolled Diabetes: No Urinary Catheter: No Decubitus Ulcer Present: No Review of Systems - Constitutional Constitutional: absent: Chills, Fever, Malaise - Cardiovascular Cardiovascular: absent: Chest Pain, Diaphoresis, Dyspnea - Respiratory Respiratory: absent: Cough, Dyspnea, Wheezing - Gastrointestinal Gastrointestinal: Abdominal Pain - Musculoskeletal Musculoskeletal: Back Pain Past Patient History - Infectious Disease Hx of Infectious Diseases: None - Tetanus Immunizations Tetanus Immunization: Unknown - Past Social History Smoking Status: Former Smoker - CARDIAC Hx Cardiac Disorders: No - PULMONARY Hx Respiratory Disorders: No - NEUROLOGICAL Hx Neurological Disorder: No - HEENT Hx HEENT Problems: No - RENAL Hx Chronic Kidney Disease: Yes Other/Comment: HAS UROSTOMY - ENDOCRINE/METABOLIC Hx Endocrine Disorders: No - HEMATOLOGICAL/ONCOLOGICAL Hx Cancer: (Gastric; colon) - INTEGUMENTARY Hx Dermatological Problems: No - MUSCULOSKELETAL/RHEUMATOLOGICAL Hx Falls: No - GASTROINTESTINAL Hx Gastrointestinal Disorders: Yes - GENITOURINARY/GYNECOLOGICAL Hx Reproductive Disorders: No - PSYCHIATRIC Hx Psychophysiologic Disorder: No - SURGICAL HISTORY Other/Comment: COLOSTOMY, PEG TUBE, UROSTOMY Meds Allergies/Adverse Reactions: Allergies Allergy/AdvReac Type Severity Reaction Status Date / Time morphine Allergy ANAPHYLAXIS Verified 12/08/17 19:18 Physical Exam - Constitutional Appears: No Acute Distress - Head Exam Head Exam: ATRAUMATIC, NORMOCEPHALIC - Respiratory Exam Respiratory Exam: Clear to Auscultation Bilateral, NORMAL BREATHING PATTERN - Cardiovascular Exam Cardiovascular Exam: +S1, +S2 - GI/Abdominal Exam Additional comments: + L iliostomy, + right nephrostomy Results - Vital Signs Recent Vital Signs: Last Vital Signs Temp 98.4 F 12/09/17 06:21 Pulse 87 12/09/17 06:21 Resp 18 12/09/17 06:21 BP 100/60 12/09/17 06:21 Pulse Ox 98 12/09/17 06:21 - Labs Result Diagrams: 12/14/17 06:30 12/14/17 06:30 Labs: Laboratory Results - last 24 hr 12/08/17 12/09/17 21:38 04:56 POC Glucose (mg/dL) 132 H 111 H Assessment & Plan - Assessment and Plan (Free Text) Assessment: 62 year old male with Sepsis secondary to staphylococcus coagulase negative bacteremia 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 New PICC line was inserted and he will complete 7 days of antibiotics as per infectious disease. Dr. Shepherd, infectious disease care consultant is following the patient. He is on oxycontin, duragesic patch and dilaudid as needed for pain secondary to malignancy. Patient follows up with oncologist at [facility] where he is on chemotherapy for carcinoid. He is on TPN for nutrition.
--- NOTE | 2017-12-09 10:39 | CP.PCM.CON ---
History of Present Illness - History of Present Illness History of Present Illness: 62 year old male with PMH of carcinoma of GI tract S/P colectomy and ileostomy, S/P neprhostomy tube placement on the right 2 years ago, history of G-tube placement, chronic renal failure was initially admitted in [facility] because of probable UTI with pyelonephritis but the patient was also found to have coagulase negative staph bacteremia from central venous catheter which was removed 12/07/2016. Now the blood cx have cleared. He is now transferred to [facility] for continued medical therapy and physical rehab. He is currently comfortable in bed, no fever or chills, eating ok, no nausea or vomiting, no chest pain, no SOB, no headache or dizziness, no sore throat, no cough or rhinorrhea, no abdominal pain, no diarrhea, on dysuria. Infectious diseases consult is requested to continue his antibiotic therapy. Review of Systems - Review of Systems All systems: reviewed and no additional remarkable complaints except (as per HPI ) Past Patient History - Infectious Disease Hx of Infectious Diseases: None - Tetanus Immunizations Tetanus Immunization: Unknown - Past Social History Smoking Status: Former Smoker - CARDIAC Hx Cardiac Disorders: No - PULMONARY Hx Respiratory Disorders: No - NEUROLOGICAL Hx Neurological Disorder: No - HEENT Hx HEENT Problems: No - RENAL Hx Chronic Kidney Disease: Yes Other/Comment: HAS UROSTOMY - ENDOCRINE/METABOLIC Hx Endocrine Disorders: No - HEMATOLOGICAL/ONCOLOGICAL Hx Cancer: (Gastric; colon) - INTEGUMENTARY Hx Dermatological Problems: No - MUSCULOSKELETAL/RHEUMATOLOGICAL Hx Falls: No - GASTROINTESTINAL Hx Gastrointestinal Disorders: Yes - GENITOURINARY/GYNECOLOGICAL Hx Reproductive Disorders: No - PSYCHIATRIC Hx Psychophysiologic Disorder: No - SURGICAL HISTORY Other/Comment: COLOSTOMY, PEG TUBE, UROSTOMY Meds Allergies/Adverse Reactions: Allergies Allergy/AdvReac Type Severity Reaction Status Date / Time morphine Allergy ANAPHYLAXIS Verified 12/08/17 19:18 - Medications Medications: Current Medications Acetaminophen (Tylenol 650 Mg Supp) 650 mg RC Q6H PRN PRN Reason: TEMP>=99.5F Acetaminophen (Tylenol 650 Mg Supp) 650 mg RC Q6H PRN PRN Reason: Headache Acetaminophen (Tylenol 325mg Tab) 650 mg PO Q6 PRN PRN Reason: Headache Acetaminophen (Tylenol 325mg Tab) 650 mg PO Q6 PRN PRN Reason: TEMP>=99.5F Amitriptyline HCl (Elavil) 25 mg PO HS [facility] Last Admin: 12/08/17 21:30 Dose: 25 mg Fentanyl (Duragesic) 1 patch TD Q72H [facility] Gabapentin (Neurontin) 400 mg PO TID [facility] PRN Reason: Protocol Hydromorphone HCl (Dilaudid) 2 mg IVP Q6H PRN PRN Reason: Pain, severe (8-10) Last Admin: 12/08/17 20:31 Dose: 2 mg Sodium Chloride (Sodium Chloride 0.9%) 500 mls @ 150 mls/hr IV .Q3H20M [facility] Last Admin: 12/08/17 21:38 Dose: 150 mls/hr Meropenem (Merrem Iv 1 Gm Premix) 50 mls @ 100 mls/hr IVPB Q8 [facility] PRN Reason: Protocol Last Admin: 12/08/17 21:46 Dose: 100 mls/hr Fat Emulsion Intravenous (Intralipid 20%) 250 mls @ 20.833 mls/hr IV Q24H [facility] Last Admin: 12/08/17 20:54 Dose: 20.833 mls/hr Multivitamins/Vitamin C 10 ml/Chromium/Copper/Manganese/Zinc 1 ml/ Famotidine 40 mg/Insulin Human Regular 12 units / Amino Acids/Electrolytes/Dextrose 2, 015.12 mls @ 83.963 mls/hr IV .Q24H [facility] Last Admin: 12/08/17 20:55 Dose: 83.963 mls/hr Midodrine (Proamatine) 5 mg PO TID [facility] Mupirocin (Bactroban Ointment) 0 gm TOP TID [facility] Ondansetron HCl (Zofran Inj) 4 mg IVP Q6 PRN PRN Reason: Nausea/Vomiting Oxycodone HCl (Oxycodone Immediate Release Tab) 30 mg PO Q6H PRN PRN Reason: Pain, moderate (4-7) Last Admin: 12/08/17 21:34 Dose: 30 mg Pantoprazole Sodium (Protonix Ec Tab) 40 mg PO 0600,1600 [facility] Physical Exam - Constitutional Appears: Non-toxic, Chronically Ill - Head Exam Head Exam: NORMAL INSPECTION - ENT Exam ENT Exam: Mucous Membranes Moist - Neck Exam Neck exam: Negative for: Lymphadenopathy, Meningismus - Respiratory Exam Respiratory Exam: Decreased Breath Sounds. absent: Rales - Cardiovascular Exam Cardiovascular Exam: +S1, +S2 - GI/Abdominal Exam GI & Abdominal Exam: Soft. absent: Tenderness Additional comments: right sided nephrostomy tube in place - Extremities Exam Additional comments: left arm PICC line in place Results - Vital Signs Recent Vital Signs: Last Vital Signs Temp 98 F 12/08/17 19:22 Pulse 85 12/08/17 19:22 Resp 18 12/08/17 19:22 BP 120/70 12/08/17 19:22 Pulse Ox - Labs Labs: Laboratory Results - last 24 hr 12/08/17 21:38 POC Glucose (mg/dL) 132 H Assessment & Plan - Assessment and Plan (Free Text) Plan: Assessment Consider sepsis due to right sided pyelonephritis with associated cystitis, with persistent coagulase negative staph bacteremia probably port/ central line as the source S/P removal 2 days ago pneumobilia and elevated bilirubin, consider S/P cholecystectomy R/O choledocholethiasis carcinoma of GI tract S/P colectomy and ileostomy S/P nephrostomy tube placement on the right 2 years ago history of G-tube placement chronic renal failure Plan 12/06 blood cx are now negative and port was removed 12/07/2017 which is day 1 of antibiotcs for the bacteremia (3 consecutive blood cx were positive for the coagulase negative staph prior to this); the coagulase negative staph is oxacillin sensitive - continue Merrem (day 12 for the pyelonephritis of 14 days and day 3 for the bactermia ; ultrasound of the IV line area does not show DVT, 2D echo does not show vegetations - will need at least 1 week of antibiotics after line removal (which was removed 2 days ago) SUSIE was negative for vegetations will continue to monitor clinically overall prognosis is poor
--- NOTE | 2017-12-09 11:55 | CP.PCM.CON ---
History of Present Illness - History of Present Illness History of Present Illness: 62 year old male with a history of carcinoid tumor diagnosed 4 years ago s/p colectomy, ileostomy, right sided nephrostomy tube, on systemic therapy, discharged from the hospital for sepsis from pyelonephritis/cystitis, now in TCU with anemia. He has a PEG tube with chronic bowel obstruction and has been on TPN. He notes to intermittent chemotherapy and monthly Sandostatin LAR injections in [place]. He denies abnormal bleeding and bruising. His anemia work up was consistent with anemia of chronic disease and chemotherapy effect. 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 Allergies: Morphine Review of systems: All remaining review of systems including HEENT, cardiovascular, respiratory, gastrointestinal, genitourinary, musculoskeletal, dermatologic, neurologic, and psychiatric are negative unless mentioned in the HPI. Past Patient History - Infectious Disease Hx of Infectious Diseases: None - Tetanus Immunizations Tetanus Immunization: Unknown - Past Social History Smoking Status: Former Smoker - CARDIAC Hx Cardiac Disorders: No - PULMONARY Hx Respiratory Disorders: No - NEUROLOGICAL Hx Neurological Disorder: No - HEENT Hx HEENT Problems: No - RENAL Hx Chronic Kidney Disease: Yes Other/Comment: HAS UROSTOMY - ENDOCRINE/METABOLIC Hx Endocrine Disorders: No - HEMATOLOGICAL/ONCOLOGICAL Hx Cancer: (Gastric; colon) - INTEGUMENTARY Hx Dermatological Problems: No - MUSCULOSKELETAL/RHEUMATOLOGICAL Hx Falls: No - GASTROINTESTINAL Hx Gastrointestinal Disorders: Yes - GENITOURINARY/GYNECOLOGICAL Hx Reproductive Disorders: No - PSYCHIATRIC Hx Psychophysiologic Disorder: No - SURGICAL HISTORY Other/Comment: COLOSTOMY, PEG TUBE, UROSTOMY Meds Allergies/Adverse Reactions: Allergies Allergy/AdvReac Type Severity Reaction Status Date / Time morphine Allergy ANAPHYLAXIS Verified 12/08/17 19:18 - Medications Medications: Current Medications Acetaminophen (Tylenol 650 Mg Supp) 650 mg RC Q6H PRN PRN Reason: TEMP>=99.5F Acetaminophen (Tylenol 650 Mg Supp) 650 mg RC Q6H PRN PRN Reason: Headache Acetaminophen (Tylenol 325mg Tab) 650 mg PO Q6 PRN PRN Reason: Headache Acetaminophen (Tylenol 325mg Tab) 650 mg PO Q6 PRN PRN Reason: TEMP>=99.5F Amitriptyline HCl (Elavil) 25 mg PO HS [facility] Last Admin: 12/08/17 21:30 Dose: 25 mg Fentanyl (Duragesic) 1 patch TD Q72H [facility] Gabapentin (Neurontin) 400 mg PO TID [facility] PRN Reason: Protocol Last Admin: 12/09/17 10:42 Dose: 400 mg Hydromorphone HCl (Dilaudid) 2 mg IVP Q6H PRN PRN Reason: Pain, severe (8-10) Last Admin: 12/09/17 08:17 Dose: 2 mg Sodium Chloride (Sodium Chloride 0.9%) 500 mls @ 150 mls/hr IV .Q3H20M [facility] Last Admin: 12/09/17 08:22 Dose: 150 mls/hr Meropenem (Merrem Iv 1 Gm Premix) 50 mls @ 100 mls/hr IVPB Q8 [facility] PRN Reason: Protocol Last Admin: 12/09/17 05:38 Dose: 100 mls/hr Fat Emulsion Intravenous (Intralipid 20%) 250 mls @ 20.833 mls/hr IV Q24H [facility] Last Admin: 12/08/17 20:54 Dose: 20.833 mls/hr Multivitamins/Vitamin C 10 ml/Chromium/Copper/Manganese/Zinc 1 ml/ Famotidine 40 mg/Insulin Human Regular 12 units / Amino Acids/Electrolytes/Dextrose 2, 015.12 mls @ 83.963 mls/hr IV .Q24H [facility] Last Admin: 12/08/17 20:55 Dose: 83.963 mls/hr Midodrine (Proamatine) 5 mg PO TID [facility] Last Admin: 12/09/17 10:45 Dose: 5 mg Mupirocin (Bactroban Ointment) 0 gm TOP TID [facility] Ondansetron HCl (Zofran Inj) 4 mg IVP Q6 PRN PRN Reason: Nausea/Vomiting Oxycodone HCl (Oxycodone Immediate Release Tab) 30 mg PO Q6H PRN PRN Reason: Pain, moderate (4-7) Last Admin: 12/09/17 04:55 Dose: 30 mg Pantoprazole Sodium (Protonix Ec Tab) 40 mg PO 0600,1600 [facility] Last Admin: 12/09/17 05:38 Dose: 40 mg Physical Exam - Head Exam Head Exam: ATRAUMATIC - Eye Exam Eye Exam: Normal appearance - ENT Exam ENT Exam: Mucous Membranes Dry - Respiratory Exam Respiratory Exam: NORMAL BREATHING PATTERN - Cardiovascular Exam Cardiovascular Exam: +S1, +S2 - GI/Abdominal Exam GI & Abdominal Exam: Normal Bowel Sounds - Extremities Exam Extremities exam: Positive for: normal inspection - Neurological Exam Neurological exam: Oriented x3 - Psychiatric Exam Psychiatric exam: Normal Affect, Normal Mood - Skin Skin Exam: Warm Results - Vital Signs Recent Vital Signs: Last Vital Signs Temp 97.3 F L 12/09/17 10:36 Pulse 90 12/09/17 10:36 Resp 18 12/09/17 10:36 BP 98/59 L 12/09/17 10:36 Pulse Ox 98 12/09/17 10:36 - Labs Labs: Laboratory Results - last 24 hr 12/08/17 12/09/17 12/09/17 21:38 04:56 11:24 POC Glucose (mg/dL) 132 H 111 H 97 Assessment & Plan (1) Anemia Assessment and Plan: anemia of chronic disease and recent chemotherapy transfusion support PRN Status: Acute (2) Carcinoid tumor Assessment and Plan: follows and is treated in [place] outpatient f/u and treatment with primary oncologist. Thank you for this interesting consult. Status: Acute
--- NOTE | 2017-12-09 15:10 | CP.PCM.CON ---
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 renal function improved Maintain hemodynamics stable. Patient not on ACEI/ARB due to PRANAV and low BP Monitor Input/Output, daily weights and renal function with basic metabolic panel supplements electrolytes as needed continue with IVF as normal saline keep I/O balanced Dose meds/antibiotics for improved GFR. Avoid nephrotoxins/NSAIDs Glycemic control Further work up/management as per primary team Thanks for allowing me to participate in care of your patient. Will sign off and follow PRN basis. Please call if any Qs. Dr Eric Oseguera Office: [phone] Reason for consult: recent PRANAV HPI: Pt is a 62 M with hx of carcinoma of GI tract S/P colectomy and ileostomy , S/P Rt nephrostomy tube placement 2 years ago, history of G-tube placement initially presented with c/o decreased output from the nephrostomy tube. pt also has CKD stage 3 for last 2-3 years with baseline cr 1.5-1.8. UOP improved after nephrostomy tube was replaced. PRANAV resolved. sepsis was managed by ID Denies OTC/herbal meds or NSAIDs No recent iodinated contrast exposure. No obvious episodes of low BP. ROS: Cardiovascular: No chest pain. Pulmonary: No shortness of breath Gastrointestinal: denies abdominal pain No nausea. No vomiting. Genitourinary: No pain while urinating. Denies blood in urine. reports improved output from nephrostomy tube s/p intervention All other negative Physical Examination: General Appearance: Comfortable, in no acute respiratory distress, co-operative . Vitals reviewed and noted as below Head; Atraumatic, normocephalic ENT: no ulcers no thrush. Tongue is midline. Oropharynx: no rash or ulcers. EYES: Pupils are equal, round and reactive to light accommodation. Eye muscles and extraocular movement intact. Sclera is anicteric. Neck; supple no lymphadenopathy, no thyromegaly or bruit Lungs: Normal respiratory rate/effort. Breath sounds bilateral equal and clear Heart: Normal rate. s1s2 normal. No rub or gallop. Extremities: no edema. No varicose veins Neurological: Patient is alert, awake and oriented to person, place and time. No focal deficit. Strength bilateral appropriate and equal Skin: Warm and dry. Normal turgor. No rash. Palpitation: Normal elasticity for age Abdomen: Abdomen is soft. Bowel sounds +. There is no abdominal tenderness, no guarding/rigidity no organomegaly. has iletostomy and G tube Psych: normal insight and normal affect/mood MSK: no joint tenderness or swelling. Digits and nails normal, no deformity : kidney or bladder not palpable. has Rt nephrostomy tube draining urine Labs/imaging reviewed. Past medical history, past surgical history, family history, social history, allergy reviewed and noted as below Family hx: no hx of CKD. Rest non-contributory Past Patient History - Infectious Disease Hx of Infectious Diseases: None - Tetanus Immunizations Tetanus Immunization: Unknown - Past Social History Smoking Status: Former Smoker - CARDIAC Hx Cardiac Disorders: No - PULMONARY Hx Respiratory Disorders: No - NEUROLOGICAL Hx Neurological Disorder: No - HEENT Hx HEENT Problems: No - RENAL Hx Chronic Kidney Disease: Yes Other/Comment: HAS UROSTOMY - ENDOCRINE/METABOLIC Hx Endocrine Disorders: No - HEMATOLOGICAL/ONCOLOGICAL Hx Cancer: (Gastric; colon) - INTEGUMENTARY Hx Dermatological Problems: No - MUSCULOSKELETAL/RHEUMATOLOGICAL Hx Falls: No - GASTROINTESTINAL Hx Gastrointestinal Disorders: Yes - GENITOURINARY/GYNECOLOGICAL Hx Reproductive Disorders: No - PSYCHIATRIC Hx Psychophysiologic Disorder: No - SURGICAL HISTORY Other/Comment: COLOSTOMY, PEG TUBE, UROSTOMY Meds Allergies/Adverse Reactions: Allergies Allergy/AdvReac Type Severity Reaction Status Date / Time morphine Allergy ANAPHYLAXIS Verified 12/08/17 19:18 - Medications Medications: Current Medications Acetaminophen (Tylenol 650 Mg Supp) 650 mg RC Q6H PRN PRN Reason: TEMP>=99.5F Acetaminophen (Tylenol 650 Mg Supp) 650 mg RC Q6H PRN PRN Reason: Headache Acetaminophen (Tylenol 325mg Tab) 650 mg PO Q6 PRN PRN Reason: Headache Acetaminophen (Tylenol 325mg Tab) 650 mg PO Q6 PRN PRN Reason: TEMP>=99.5F Amitriptyline HCl (Elavil) 25 mg PO HS [facility] Last Admin: 12/08/17 21:30 Dose: 25 mg Fentanyl (Duragesic) 1 patch TD Q72H [facility] Gabapentin (Neurontin) 400 mg PO TID [facility] PRN Reason: Protocol Last Admin: 12/09/17 14:36 Dose: 400 mg Hydromorphone HCl (Dilaudid) 2 mg IVP Q6H PRN PRN Reason: Pain, severe (8-10) Last Admin: 12/09/17 14:39 Dose: 2 mg Sodium Chloride (Sodium Chloride 0.9%) 500 mls @ 150 mls/hr IV .Q3H20M [facility] Last Admin: 12/09/17 08:22 Dose: 150 mls/hr Meropenem (Merrem Iv 1 Gm Premix) 50 mls @ 100 mls/hr IVPB Q8 [facility] PRN Reason: Protocol Last Admin: 12/09/17 14:35 Dose: 100 mls/hr Fat Emulsion Intravenous (Intralipid 20%) 250 mls @ 20.833 mls/hr IV Q24H [facility] Last Admin: 12/08/17 20:54 Dose: 20.833 mls/hr Multivitamins/Vitamin C 10 ml/Chromium/Copper/Manganese/Zinc 1 ml/ Famotidine 40 mg/Insulin Human Regular 12 units / Amino Acids/Electrolytes/Dextrose 2, 015.12 mls @ 83.963 mls/hr IV .Q24H [facility] Last Admin: 12/08/17 20:55 Dose: 83.963 mls/hr Midodrine (Proamatine) 5 mg PO TID [facility] Last Admin: 12/09/17 10:45 Dose: 5 mg Mupirocin (Bactroban Ointment) 0 gm TOP TID [facility] Last Admin: 12/09/17 10:27 Dose: Not Given Ondansetron HCl (Zofran Inj) 4 mg IVP Q6 PRN PRN Reason: Nausea/Vomiting Oxycodone HCl (Oxycodone Immediate Release Tab) 30 mg PO Q6H PRN PRN Reason: Pain, moderate (4-7) Last Admin: 12/09/17 12:28 Dose: 30 mg Pantoprazole Sodium (Protonix Ec Tab) 40 mg PO 0600,1600 [facility] Last Admin: 12/09/17 05:38 Dose: 40 mg Results - Vital Signs Recent Vital Signs: Last Vital Signs Temp 97.3 F L 12/09/17 10:36 Pulse 90 12/09/17 10:36 Resp 18 12/09/17 10:36 BP 98/59 L 12/09/17 10:36 Pulse Ox 98 12/09/17 10:36 - Labs Labs: Laboratory Results - last 24 hr 12/08/17 12/09/17 12/09/17 21:38 04:56 11:24 POC Glucose (mg/dL) 132 H 111 H 97
[2017-12-09] MEDS: Fat Emulsion 20% IV 250 ML IV SCH (18:39)
[2017-12-09] MEDS: [UNRECOGNIZED DRUG - NUTRITION] IV SCH (20:19)
[2017-12-10] MEDS: oxyCODONE 15 mg Immediate Release Tab PO PRN ×4 (00:16→19:59)
[2017-12-10] MEDS: Meropenem IV 1 gm in NS 50 ML IVPB SCH ×3 (05:03→21:19)
[2017-12-10] MEDS: Pantoprazole 40 mg EC Tab PO SCH ×2 (05:04→17:02)
[2017-12-10] MEDS: Sodium Chloride 0.9% 500 ML IV SCH ×3 (06:11→16:56)
--- NOTE | 2017-12-10 08:56 | CP.PCM.PN ---
Subjective - Date & Time of Evaluation Date of Evaluation: 12/10/17 Time of Evaluation: 08:20 - Subjective Subjective: (covering for Dr. Wagner) Patient is in the transitional care unit finishing course of IV antibiotics. Objective - Vital Signs/Intake and Output Vital Signs (last 24 hours): Temp Pulse Resp BP Pulse Ox 99 F 89 18 82/51 L 97 12/09/17 16:46 12/09/17 16:46 12/09/17 16:46 12/09/17 16:46 12/09/17 16:46 Intake and Output: 12/10/17 12/10/17 06:59 18:59 Intake Total 360 200 Output Total 3050 Balance 360 -2850 - Medications Medications: Current Medications Acetaminophen (Tylenol 650 Mg Supp) 650 mg RC Q6H PRN PRN Reason: TEMP>=99.5F Acetaminophen (Tylenol 650 Mg Supp) 650 mg RC Q6H PRN PRN Reason: Headache Acetaminophen (Tylenol 325mg Tab) 650 mg PO Q6 PRN PRN Reason: Headache Acetaminophen (Tylenol 325mg Tab) 650 mg PO Q6 PRN PRN Reason: TEMP>=99.5F Amitriptyline HCl (Elavil) 25 mg PO HS [facility] Last Admin: 12/09/17 21:50 Dose: 25 mg Fentanyl (Duragesic) 1 patch TD Q72H [facility] Gabapentin (Neurontin) 400 mg PO TID [facility] PRN Reason: Protocol Last Admin: 12/09/17 18:41 Dose: 400 mg Hydromorphone HCl (Dilaudid) 2 mg IVP Q4H PRN PRN Reason: Pain, severe (8-10) Sodium Chloride (Sodium Chloride 0.9%) 500 mls @ 150 mls/hr IV .Q3H20M [facility] Last Admin: 12/10/17 06:11 Dose: 150 mls/hr Meropenem (Merrem Iv 1 Gm Premix) 50 mls @ 100 mls/hr IVPB Q8 [facility] PRN Reason: Protocol Last Admin: 12/10/17 05:03 Dose: 100 mls/hr Fat Emulsion Intravenous (Intralipid 20%) 250 mls @ 20.833 mls/hr IV Q24H [facility] Last Admin: 12/09/17 18:39 Dose: 20.833 mls/hr Multivitamins/Vitamin C 10 ml/Chromium/Copper/Manganese/Zinc 1 ml/ Famotidine 40 mg/Insulin Human Regular 12 units / Amino Acids/Electrolytes/Dextrose 2, 015.12 mls @ 83.963 mls/hr IV .Q24H [facility] Last Admin: 12/09/17 20:19 Dose: 83.963 mls/hr Midodrine (Proamatine) 5 mg PO TID [facility] Last Admin: 12/09/17 18:44 Dose: 5 mg Mupirocin (Bactroban Ointment) 0 gm TOP TID [facility] Last Admin: 12/09/17 18:39 Dose: 2 oin Ondansetron HCl (Zofran Inj) 4 mg IVP Q6 PRN PRN Reason: Nausea/Vomiting Oxycodone HCl (Oxycodone Immediate Release Tab) 30 mg PO Q4H PRN PRN Reason: Pain, moderate (4-7) Pantoprazole Sodium (Protonix Ec Tab) 40 mg PO 0600,1600 [facility] Last Admin: 12/10/17 05:04 Dose: 40 mg - Constitutional Appears: No Acute Distress - Head Exam Head Exam: ATRAUMATIC, NORMOCEPHALIC - Respiratory Exam Respiratory Exam: Decreased Breath Sounds, NORMAL BREATHING PATTERN - Cardiovascular Exam Cardiovascular Exam: +S1, +S2 - GI/Abdominal Exam Additional comments: + left iliostomy, + right nephrostomy - Neurological Exam Neurological Exam: Alert, Awake, Oriented x3 Assessment and Plan - Assessment and Plan (Free Text) Assessment: Sepsis staphylococcus coagulase negative bacteremia cystitis with probable pyelonephritis carcinoid malignancy s/p right nephrostomy and left iliostomy Plan: Patient has had central line removed and new PICC line inserted. He is on IV Merrem as per infectious disease for bacteremia. SUSIE negative for vegetations. continue pain control. Patient has pain secondary to cancer. continue physical therapy.
--- NOTE | 2017-12-10 11:38 | CP.PCM.PN ---
Subjective - Date & Time of Evaluation Date of Evaluation: 12/10/17 Time of Evaluation: 11:20 - Subjective Subjective: Comfortable in bed, no fevers, no diarrhea, no nausea. Objective - Vital Signs/Intake and Output Vital Signs (last 24 hours): Temp Pulse Resp BP Pulse Ox 99 F 89 18 82/51 L 97 12/09/17 16:46 12/09/17 16:46 12/09/17 16:46 12/09/17 16:46 12/09/17 16:46 Intake and Output: 12/10/17 12/10/17 06:59 18:59 Intake Total 360 Balance 360 - Medications Medications: Current Medications Acetaminophen (Tylenol 650 Mg Supp) 650 mg RC Q6H PRN PRN Reason: TEMP>=99.5F Acetaminophen (Tylenol 650 Mg Supp) 650 mg RC Q6H PRN PRN Reason: Headache Acetaminophen (Tylenol 325mg Tab) 650 mg PO Q6 PRN PRN Reason: Headache Acetaminophen (Tylenol 325mg Tab) 650 mg PO Q6 PRN PRN Reason: TEMP>=99.5F Amitriptyline HCl (Elavil) 25 mg PO HS TAMMY Last Admin: 12/09/17 21:50 Dose: 25 mg Fentanyl (Duragesic) 1 patch TD Q72H [facility] Gabapentin (Neurontin) 400 mg PO TID TAMMY PRN Reason: Protocol Last Admin: 12/09/17 18:41 Dose: 400 mg Hydromorphone HCl (Dilaudid) 2 mg IVP Q6H PRN PRN Reason: Pain, severe (8-10) Last Admin: 12/10/17 02:54 Dose: 2 mg Sodium Chloride (Sodium Chloride 0.9%) 500 mls @ 150 mls/hr IV .Q3H20M [facility] Last Admin: 12/10/17 06:11 Dose: 150 mls/hr Meropenem (Merrem Iv 1 Gm Premix) 50 mls @ 100 mls/hr IVPB Q8 TAMMY PRN Reason: Protocol Last Admin: 12/10/17 05:03 Dose: 100 mls/hr Fat Emulsion Intravenous (Intralipid 20%) 250 mls @ 20.833 mls/hr IV Q24H [facility] Last Admin: 12/09/17 18:39 Dose: 20.833 mls/hr Multivitamins/Vitamin C 10 ml/Chromium/Copper/Manganese/Zinc 1 ml/ Famotidine 40 mg/Insulin Human Regular 12 units / Amino Acids/Electrolytes/Dextrose 2, 015.12 mls @ 83.963 mls/hr IV .Q24H [facility] Last Admin: 12/09/17 20:19 Dose: 83.963 mls/hr Midodrine (Proamatine) 5 mg PO TID [facility] Last Admin: 12/09/17 18:44 Dose: 5 mg Mupirocin (Bactroban Ointment) 0 gm TOP TID [facility] Last Admin: 12/09/17 18:39 Dose: 2 oin Ondansetron HCl (Zofran Inj) 4 mg IVP Q6 PRN PRN Reason: Nausea/Vomiting Oxycodone HCl (Oxycodone Immediate Release Tab) 30 mg PO Q6H PRN PRN Reason: Pain, moderate (4-7) Last Admin: 12/10/17 05:13 Dose: 30 mg Pantoprazole Sodium (Protonix Ec Tab) 40 mg PO 0600,1600 [facility] Last Admin: 12/10/17 05:04 Dose: 40 mg - Constitutional Appears: Chronically Ill - Head Exam Head Exam: NORMAL INSPECTION - Neck Exam Neck Exam: absent: Meningismus - Respiratory Exam Respiratory Exam: Decreased Breath Sounds - Cardiovascular Exam Cardiovascular Exam: +S1, +S2 - GI/Abdominal Exam GI & Abdominal Exam: Soft. absent: Tenderness Assessment and Plan - Assessment and Plan (Free Text) Plan: Assessment Consider sepsis due to right sided pyelonephritis with associated cystitis, with persistent coagulase negative staph bacteremia probably port/ central line as the source S/P removal 2 days ago pneumobilia and elevated bilirubin, consider S/P cholecystectomy R/O choledocholethiasis carcinoma of GI tract S/P colectomy and ileostomy S/P nephrostomy tube placement on the right 2 years ago history of G-tube placement chronic renal failure Plan 12/06 blood cx are now negative and port was removed 12/07/2017 which is day 4 of antibiotics for the bacteremia (3 consecutive blood cx were positive for the coagulase negative staph prior to this); the coagulase negative staph is oxacillin sensitive - continue Merrem (day 13 for the pyelonephritis of 14 days and day 4 for the bactermia ; ultrasound of the IV line area does not show DVT, 2D echo does not show vegetations - will need at least 1 week of antibiotics after line removal (which was removed 2 days ago) SUSIE was negative for vegetations will continue to monitor clinically overall prognosis is poor
[2017-12-10] MEDS: Fat Emulsion 20% IV 250 ML IV SCH (17:44)
[2017-12-10] MEDS: [UNRECOGNIZED DRUG - NUTRITION] IV SCH (19:51)
[2017-12-10] MEDS ORDERED: HYDROmorphone 0.5 mg/0.5 ml ISec IVP PRN ×2 (21:27→21:50)
[2017-12-11] MEDS: oxyCODONE 15 mg Immediate Release Tab PO PRN ×5 (00:20→20:31)
[2017-12-11] MEDS ORDERED: HYDROmorphone 0.5 mg/0.5 ml ISec IVP PRN (00:45)
[2017-12-11] MEDS: Sodium Chloride 0.9% 500 ML IV SCH ×4 (01:04→22:44)
[2017-12-11] MEDS: Pantoprazole 40 mg EC Tab PO SCH ×2 (05:26→17:39)
[2017-12-11] MEDS: Meropenem IV 1 gm in NS 50 ML IVPB SCH ×3 (05:26→21:27)
[2017-12-11] MEDS ORDERED: Fat Emulsion 20% IV 250 ML IV SCH (08:15)
[2017-12-11] MEDS: HYDROmorphone 0.5 mg/0.5 ml ISec IVP PRN ×4 (09:45→21:27)
--- NOTE | 2017-12-11 11:51 | CP.PCM.PN ---
Subjective - Date & Time of Evaluation Date of Evaluation: 12/11/17 Time of Evaluation: 11:00 - Subjective Subjective: Comfortable in bed, no fevers, no abdominal pain, still with occasional back pain, no diarrhea. Objective - Vital Signs/Intake and Output Vital Signs (last 24 hours): Temp Pulse Resp BP Pulse Ox 97 F L 93 H 20 87/56 L 100 12/10/17 16:00 12/10/17 16:00 12/10/17 16:00 12/10/17 16:00 12/10/17 16:00 Intake and Output: 12/11/17 12/11/17 06:59 18:59 Intake Total 3498 Output Total 3000 400 Balance 498 -400 - Medications Medications: Current Medications Acetaminophen (Tylenol 650 Mg Supp) 650 mg RC Q6H PRN PRN Reason: TEMP>=99.5F Acetaminophen (Tylenol 650 Mg Supp) 650 mg RC Q6H PRN PRN Reason: Headache Acetaminophen (Tylenol 325mg Tab) 650 mg PO Q6 PRN PRN Reason: Headache Acetaminophen (Tylenol 325mg Tab) 650 mg PO Q6 PRN PRN Reason: TEMP>=99.5F Amitriptyline HCl (Elavil) 25 mg PO HS [facility] Last Admin: 12/10/17 21:19 Dose: 25 mg Fentanyl (Duragesic) 1 patch TD Q72H [facility] Gabapentin (Neurontin) 400 mg PO TID TAMMY PRN Reason: Protocol Last Admin: 12/10/17 17:00 Dose: 400 mg Hydromorphone HCl (Dilaudid) 2 mg IVP Q4H PRN PRN Reason: Pain, severe (8-10) Sodium Chloride (Sodium Chloride 0.9%) 500 mls @ 150 mls/hr IV .Q3H20M [facility] Last Admin: 12/11/17 01:04 Dose: 150 mls/hr Meropenem (Merrem Iv 1 Gm Premix) 50 mls @ 100 mls/hr IVPB Q8 TAMMY PRN Reason: Protocol Last Admin: 12/11/17 05:26 Dose: 100 mls/hr Multivitamins/Vitamin C 10 ml/Chromium/Copper/Manganese/Zinc 1 ml/ Famotidine 40 mg/Insulin Human Regular 12 units / Amino Acids/Electrolytes/Dextrose 2, 015.12 mls @ 83.963 mls/hr IV .Q24H [facility] Last Admin: 12/10/17 19:51 Dose: 83.963 mls/hr Midodrine (Proamatine) 5 mg PO TID [facility] Last Admin: 12/10/17 17:01 Dose: 5 mg Mupirocin (Bactroban Ointment) 0 gm TOP TID [facility] Last Admin: 12/10/17 17:03 Dose: 1 oin Ondansetron HCl (Zofran Inj) 4 mg IVP Q6 PRN PRN Reason: Nausea/Vomiting Last Admin: 12/10/17 21:29 Dose: 4 mg Oxycodone HCl (Oxycodone Immediate Release Tab) 30 mg PO Q4H PRN PRN Reason: Pain, moderate (4-7) Last Admin: 12/11/17 04:11 Dose: 30 mg Pantoprazole Sodium (Protonix Ec Tab) 40 mg PO 0600,1600 [facility] Last Admin: 12/11/17 05:26 Dose: 40 mg - Constitutional Appears: Chronically Ill - Head Exam Head Exam: NORMAL INSPECTION - Neck Exam Neck Exam: absent: Meningismus - Respiratory Exam Respiratory Exam: Decreased Breath Sounds - Cardiovascular Exam Cardiovascular Exam: +S1, +S2 - GI/Abdominal Exam GI & Abdominal Exam: Soft. 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 S/P nephrostomy tube placement on the right 2 years ago history of G-tube placement chronic renal failure Plan 12/06 blood cx are now negative and port was removed 12/07/2017 which is day 5 of antibiotics for the bacteremia (3 consecutive blood cx were positive for the coagulase negative staph prior to this); the coagulase negative staph is oxacillin sensitive - continue Merrem (day 14 for the pyelonephritis of 14 days and day 5 for the bactermia ; ultrasound of the IV line area does not show DVT, 2D echo does not show vegetations - will need at least 1 week of antibiotics after line removal (which was removed 2 days ago) SUSIE was negative for vegetations will continue to monitor clinically overall prognosis is poor
--- NOTE | 2017-12-11 15:38 | CON ---
DATE:HIHISTORY OF PRESENT ILLNESS: I saw Mr. Cameron this morning. He is a 62-year-old male, with history of carcinoid, ileostomy, right nephrostomy, PEG tube placement, currently in TICU. Apparently, the patient had a bowel obstruction requiring intestinal decompression using a G-tube and was admitted in the late part of November with malfunctioning right nephrostomy tube. The patient was seen by Dr. Olvio on 11/28/2017 for evaluation of his PEG tube. The PEG tube was placed at [facility] during the initial treatment program for his carcinoid. Consult was called today just for followup evaluation of the PEG tube. At the bedside this morning, the patient indicates the gastrostomy tube is functioning fine. There is good drainage. He has no pain and no exudate is seen at the his stoma site. Overall, the PEG tube appears to be in good repair. OVERALL ASSESSMENT: This is a 62-year-old with a history of carcinoid syndrome, now in TICU after recent admission. The patient is currently being treated for sepsis due to possible right-sided pyelonephritis, cystitis and currently he has persistent Staph bacteremia after the colon and small bowel resection. The patient also is status post nephrostomy tube placement and G-tube placement at [facility]. The patient is currently being seen by multiple consultants. As indicated above, consult was called for evaluation of the status of his PEG tube, which appears to be in good repair. Dr. Olivo will follow up in this patient later on the week. He will return after a vacation. Ar Minor DO, PhD MARITZA
[2017-12-11] MEDS: Fat Emulsion 20% IV 250 ML IV SCH (17:37)
[2017-12-11] MEDS: [UNRECOGNIZED DRUG - NUTRITION] IV SCH (20:31)
[2017-12-12] MEDS: oxyCODONE 15 mg Immediate Release Tab PO PRN ×5 (00:01→20:51)
[2017-12-12] MEDS: HYDROmorphone 0.5 mg/0.5 ml ISec IVP PRN ×3 (01:24→10:15)
[2017-12-12] MEDS: Pantoprazole 40 mg EC Tab PO SCH ×2 (05:23→16:15)
[2017-12-12] MEDS: Sodium Chloride 0.9% 500 ML IV SCH ×4 (05:28→20:52)
[2017-12-12] MEDS: Meropenem IV 1 gm in NS 50 ML IVPB SCH (05:28)
[2017-12-12 07:19] LABS: BASO # 0.08 K/mm3 (0.0-2.0); BASO % 0.9 % (0.0-3.0); EOS # 0.9 (0.0-0.7); EOS % 10.2 % (1.5-5.0); GRAN # 3.84 (1.4-6.5); GRAN % 44.4 % (50.0-68.0); HEMOGLOBIN 7.8 g/dL (14.0-18.0); LYMPH # 1.7 (1.2-3.4); LYMPH % 19.8 % (22.0-35.0); MEAN CELL VOLUME 90.4 fl (80.0-105.0); MEAN CORPUSCULAR HEMOGLOBIN 29.9 pg (25.0-35.0); MEAN CORPUSCULAR HGB CONC 33.1 g/dl (31.0-37.0); MONO # 2.1 (0.1-0.6); MONO % 24.7 % (1.0-6.0); PLATELET COUNT 323 10^3/uL (120.0-450.0); RBC 2.61 10^6/uL (3.5-6.1); RED CELL DISTRIBUTION WIDTH 17.1 % (11.5-14.5); WHITE BLOOD COUNT 8.7 10^3/ul (4.5-11.0)
[2017-12-12 07:39] LABS: ALB/GLOB RATIO 0.6 (1.1-1.8); ALBUMIN 2.3 g/dL (3.0-4.8); ALT/SGPT 49 U/L (7-56); AST/SGOT 68 U/L (17-59); BLOOD UREA NITROGEN 23 mg/dL (7-21); CALCIUM 8.8 mg/dL (8.4-10.5); GFR AFRICAN-AMERICAN > 60; GFR NON-AFRICAN AMERICAN > 60
[2017-12-12 08:31] LABS: BASOPHIL 1 % (0.0-1.0); EOSINOPHIL 5 % (0.0-3.0); LYMPHOCYTE 16 % (22.0-35.0); MONOCYTE 18 % (1.0-6.0); NEUTROPHIL 60 % (50.0-70.0)
[2017-12-12 08:32] LABS: HYPOCHROMIA SLIGHT; PLATELET ESTIMATE NORMAL (NORMAL)
--- NOTE | 2017-12-12 08:44 | PN ---
DATE: 12/11/2017 SUBJECTIVE: Patient is in the Transitional Care Unit at [facility] in [place], room 303, bed 1. Patient is admitted to the Transitional Care Unit on acute medical floor for continued antibiotic treatment and management of his IV fluids, hyperalimentation. Patient has a complicated history. He has had multiple surgeries. Patient has history of malignant carcinoid tumor. Patient has an ileostomy, which is on the left side of the abdomen. Patient has a nephrostomy on the right lumbar area of the abdomen. Patient has had sepsis with bacteremia. Patient has had a line, which was removed, suspicion of infection possibly coming out of the previous PICC line. Patient has a new PICC line inserted now. He is afebrile and he has complained of pain and he is on pain medication. OBJECTIVE: GENERAL: This morning, he is conscious, he is cooperative. He is pretty pleasant in spite of all the difficulties he has and his medical problems. VITAL SIGNS: His pulse is 93, blood pressure 99/62, respirations are 20, O2 sat is 97% on room air. Temperature is 97. HEENT: Patient's head is normocephalic. LUNGS: Trachea is central. Breath sounds are vesicular. HEART: Sinus tachycardia. ABDOMEN: Soft. Patient does have ileostomy drainage from the left side. He has a bag for that. He has a nephrostomy on the right side and he has a bag for that. He has a PICC line. CENTRAL NERVOUS SYSTEM: Within normal limits. Patient also has had SUSIE to rule out any bacterial endocarditis, which was negative. MEDICATIONS: He gets Bactroban ointment for external wound site infection. Patient has Dilaudid for pain, and Duragesic patch that has been changed every third day. Patient has Elavil 25 mg at night. Patient is on meropenem 1 g every 8 hours. Patient is on gabapentin 400 mg p.o. t.i.d. Patient is on oxycodone 30 mg p.o. every 4 hours. Patient is on ProAmatine for hypotension. Pantoprazole 40 mg daily. Patient also gets Tylenol for fever and mild pain. Patient is on hyperalimentation as mentioned. He is also taking liquid diet p.o. and his blood work done recently. His blood sugar is 114 and we will repeat his general chemistries. Since he has been in the TCU, we have not done any blood work. Patient's overall pulmonary and cardiac condition seem to be stable. We will continue current management with antibiotics and nutritional support and all other medications and then follow up. Shira Nichols MD MTDLucy
--- NOTE | 2017-12-12 10:54 | CP.PCM.PN ---
Subjective - Date & Time of Evaluation Date of Evaluation: 12/12/17 Time of Evaluation: 09:50 - Subjective Subjective: Comfortable in bed, no fevers, not in distress. Objective - Vital Signs/Intake and Output Vital Signs (last 24 hours): Temp Pulse Resp BP Pulse Ox 99.8 F H 94 H 18 106/59 L 96 12/11/17 16:00 12/11/17 16:00 12/11/17 16:00 12/11/17 16:00 12/11/17 16:00 Intake and Output: 12/11/17 12/12/17 18:59 06:59 Intake Total 3528 Output Total 4600 1050 Balance -1072 -1050 - Medications Medications: Current Medications Acetaminophen (Tylenol 650 Mg Supp) 650 mg RC Q6H PRN PRN Reason: TEMP>=99.5F Acetaminophen (Tylenol 650 Mg Supp) 650 mg RC Q6H PRN PRN Reason: Headache Acetaminophen (Tylenol 325mg Tab) 650 mg PO Q6 PRN PRN Reason: Headache Acetaminophen (Tylenol 325mg Tab) 650 mg PO Q6 PRN PRN Reason: TEMP>=99.5F Amitriptyline HCl (Elavil) 25 mg PO HS TAMMY Last Admin: 12/11/17 21:27 Dose: 25 mg Fentanyl (Duragesic) 1 patch TD Q72H [facility] Last Admin: 12/11/17 09:46 Dose: 1 patch Gabapentin (Neurontin) 400 mg PO TID TAMMY PRN Reason: Protocol Last Admin: 12/11/17 17:38 Dose: 400 mg Hydromorphone HCl (Dilaudid) 2 mg IVP Q4H PRN PRN Reason: Pain, severe (8-10) Last Admin: 12/12/17 05:32 Dose: 2 mg Sodium Chloride (Sodium Chloride 0.9%) 500 mls @ 150 mls/hr IV .Q3H20M [facility] Last Admin: 12/12/17 05:28 Dose: 150 mls/hr Meropenem (Merrem Iv 1 Gm Premix) 50 mls @ 100 mls/hr IVPB Q8 TAMMY PRN Reason: Protocol Last Admin: 12/12/17 05:28 Dose: 100 mls/hr Multivitamins/Vitamin C 10 ml/Chromium/Copper/Manganese/Zinc 1 ml/ Famotidine 40 mg/Insulin Human Regular 12 units / Amino Acids/Electrolytes/Dextrose 2, 015.12 mls @ 83.963 mls/hr IV .Q24H [facility] Last Admin: 12/11/17 20:31 Dose: 83.963 mls/hr Fat Emulsion Intravenous (Intralipid 20%) 250 mls @ 20.833 mls/hr IV Q24H [facility] Last Admin: 12/11/17 17:37 Dose: 20.833 mls/hr Midodrine (Proamatine) 5 mg PO TID [facility] Last Admin: 12/11/17 17:39 Dose: 5 mg Mupirocin (Bactroban Ointment) 0 gm TOP TID [facility] Last Admin: 12/11/17 17:40 Dose: 1 oin Ondansetron HCl (Zofran Inj) 4 mg IVP Q6 PRN PRN Reason: Nausea/Vomiting Last Admin: 12/10/17 21:29 Dose: 4 mg Oxycodone HCl (Oxycodone Immediate Release Tab) 30 mg PO Q4H PRN PRN Reason: Pain, moderate (4-7) Last Admin: 12/12/17 04:22 Dose: 30 mg Pantoprazole Sodium (Protonix Ec Tab) 40 mg PO 0600,1600 [facility] Last Admin: 12/12/17 05:23 Dose: 40 mg - Constitutional Appears: Chronically Ill - Head Exam Head Exam: NORMAL INSPECTION - Respiratory Exam Respiratory Exam: Decreased Breath Sounds - Cardiovascular Exam Cardiovascular Exam: +S1, +S2 - GI/Abdominal Exam GI & Abdominal Exam: Soft. absent: Tenderness - Extremities Exam Additional comments: left arm PICC in place, right sided nephrostomy tube in place Assessment and Plan - Assessment and Plan (Free Text) Plan: Assessment Consider sepsis S/P right sided pyelonephritis with associated cystitis, with persistent coagulase negative staph bacteremia probably port/ central line as the source S/P removal pneumobilia and elevated bilirubin, consider S/P cholecystectomy R/O choledocholethiasis carcinoma of GI tract S/P colectomy and ileostomy S/P nephrostomy tube placement on the right 2 years ago history of G-tube placement chronic renal failure Plan 12/06 blood cx are now negative and port was removed 12/07/2017 which is day 6 of antibiotics for the bacteremia (3 consecutive blood cx were positive for the coagulase negative staph prior to this); the coagulase negative staph is oxacillin sensitive - completed 14 days of Merrem for UTI and can use Cefazolin (day 6 for the bactermia, of 7-10 days) ; ultrasound of the IV line area does not show DVT, 2D echo does not show vegetations SUSIE was negative for vegetations will continue to monitor clinically overall prognosis is poor
[2017-12-12 12:09] LABS: IRON 20 ug/dL (45-180)
[2017-12-12 12:18] LABS: % IRON SATURATION 12 % (20-55); TOTAL IRON BINDING CAPACITY 171 ug/dL (261-462)
--- NOTE | 2017-12-12 12:48 | PN ---
DATE: 12/12/2017 SUBJECTIVE: The patient is lying in bed comfortably. Denies any vomiting. He had some nausea yesterday. He has some mild chronic abdominal pain, no worse than prior visits. He denies any fevers or chills. PHYSICAL EXAMINATION: VITAL SIGNS: Reveal temperature of 97.2, blood pressure of 106/59, heart rate 94. HEENT: Reveals sclerae to be white, conjunctivae pale. NECK: Supple. CHEST: Reveals distant breath sounds. HEART: Reveals an irregular rate. ABDOMEN: Soft, nontender. He has an ileostomy in the lower abdomen. He has a gastrostomy draining bilious fluid in the upper abdomen. EXTREMITIES: Show no edema. LABORATORY DATA: Reveals white blood cell count of 8.7, hemoglobin 7.8, platelet count 323,000. Chemistries reveal iron saturation of 12, AST 68, ALT 49, alkaline phosphatase 378. Electrolytes are normal. IMPRESSION: 1 A 62-year-old male with metastatic carcinoid of the colon with chronic bowel obstruction requiring decompression from a gastrostomy tube. 2. Status post pyelonephritis. 3. Anemia, most likely anemia of chronic disease. 4. Status post nephrostomy change for nonfunctioning nephrostomy. RECOMMENDATIONS: 1. Follow serial hematocrits. 2. The patient may need blood transfusion if his CBC drops any further. There is no evidence of overt GI bleeding. His long-term prognosis is poor. Ezequiel Olivo MD
--- NOTE | 2017-12-12 13:56 | PN ---
DATE: 12/12/17 SUBJECTIVE: The patient is in Transitional Care Unit, room 303, bed 1. The patient is treated with antibiotics for sepsis. Patient was in the hospital with PICC line that was removed because of the possibility of infection of the PICC line. Patient also was investigated for cardiac infection that was negative. The patient is seen this morning. He is on his routine medications. PHYSICAL EXAMINATION VITAL SIGNS: His pulse is 94, blood pressure 110/60, respirations 18, O2 saturation is 96% on 2 liters of oxygen. LUNGS: Clear. HEART: Normal sinus rhythm. ABDOMEN: Soft. Patient has ileostomy on the left side. Patient has nephrostomy on the right side. MEDICATIONS: At this time, patient is on antibiotics, meropenem every 8 hours. Patient is also getting fentanyl and Duragesic patch. Patient is on Oxycontin. Patient is on Dilaudid and patient also get hyperalimentation with micronutrients, chromium, copper, manganese, zinc, insulin, and also patient is on vitamin C. ASSESSMENT AND PLAN: The patient is improving, his antibiotics will be continued until the complete course is done, then the patient can be discharged. Currently, the patient does not have any active problem accepting the treatment for the infection that patient needs urgently. Shira Nichols MD MTDD
[2017-12-12] MEDS: ceFAZolin 2 GM in Sodium Chloride 0.9% 100 ML IVPB SCH ×2 (14:51→22:59)
[2017-12-12] MEDS: Fat Emulsion 20% IV 250 ML IV SCH (17:57)
[2017-12-12] MEDS: [UNRECOGNIZED DRUG - NUTRITION] IV SCH (20:53)
[2017-12-13] MEDS: oxyCODONE 15 mg Immediate Release Tab PO PRN ×5 (01:09→16:51)
[2017-12-13] MEDS: ceFAZolin 2 GM in Sodium Chloride 0.9% 100 ML IVPB SCH ×3 (05:31→21:01)
[2017-12-13] MEDS: Sodium Chloride 0.9% 500 ML IV SCH ×2 (05:32→23:43)
[2017-12-13] MEDS: Pantoprazole 40 mg EC Tab PO SCH ×2 (05:32→16:53)
[2017-12-13 06:47] LABS: HEMOGLOBIN 7.9 g/dL (14.0-18.0); MEAN CELL VOLUME 91.2 fl (80.0-105.0); MEAN CORPUSCULAR HEMOGLOBIN 30.3 pg (25.0-35.0); MEAN CORPUSCULAR HGB CONC 33.2 g/dl (31.0-37.0); MEAN PLATELET VOLUME 11.4 fl (7.0-11.0); RBC 2.61 10^6/uL (3.5-6.1); WHITE BLOOD COUNT 8.6 10^3/ul (4.5-11.0)
[2017-12-13] MEDS ORDERED: Iron Sucrose 100 mg/5 ml Inj IVP ONE (07:55)
[2017-12-13 10:42] VITALS: RESP 18
[2017-12-13] MEDS ORDERED: [UNRECOGNIZED DRUG - NUTRITION] IV SCH (11:15)
--- NOTE | 2017-12-13 11:34 | CP.PCM.PN ---
Subjective - Date & Time of Evaluation Date of Evaluation: 12/13/17 Time of Evaluation: 11:20 - Subjective Subjective: Comfortable in bed, no fevers, not in distress. Has some nausea which is controlled with meds. Objective - Vital Signs/Intake and Output Vital Signs (last 24 hours): Temp Pulse Resp BP Pulse Ox 98.1 F 85 20 107/65 99 12/12/17 16:00 12/12/17 16:00 12/12/17 16:00 12/12/17 16:00 12/12/17 16:00 Intake and Output: 12/12/17 12/13/17 18:59 06:59 Intake Total 1800 3528 Output Total 1720 2420 Balance 80 1108 - Medications Medications: Current Medications Acetaminophen (Tylenol 650 Mg Supp) 650 mg RC Q6H PRN PRN Reason: TEMP>=99.5F Acetaminophen (Tylenol 650 Mg Supp) 650 mg RC Q6H PRN PRN Reason: Headache Acetaminophen (Tylenol 325mg Tab) 650 mg PO Q6 PRN PRN Reason: Headache Acetaminophen (Tylenol 325mg Tab) 650 mg PO Q6 PRN PRN Reason: TEMP>=99.5F Amitriptyline HCl (Elavil) 25 mg PO HS [facility] Last Admin: 12/12/17 20:59 Dose: 25 mg Fentanyl (Duragesic) 1 patch TD Q72H [facility] Last Admin: 12/11/17 09:46 Dose: 1 patch Gabapentin (Neurontin) 400 mg PO TID TAMMY PRN Reason: Protocol Last Admin: 12/12/17 17:58 Dose: 400 mg Hydromorphone HCl (Dilaudid) 2 mg IVP Q4H PRN PRN Reason: Pain, severe (8-10) Last Admin: 12/13/17 05:39 Dose: 2 mg Sodium Chloride (Sodium Chloride 0.9%) 500 mls @ 150 mls/hr IV .Q3H20M [facility] Last Admin: 12/13/17 05:32 Dose: 150 mls/hr Multivitamins/Vitamin C 10 ml/Chromium/Copper/Manganese/Zinc 1 ml/ Famotidine 40 mg/Insulin Human Regular 12 units / Amino Acids/Electrolytes/Dextrose 2, 015.12 mls @ 83.963 mls/hr IV .Q24H [facility] Last Admin: 12/12/17 20:53 Dose: 83.963 mls/hr Fat Emulsion Intravenous (Intralipid 20%) 250 mls @ 20.833 mls/hr IV Q24H [facility] Last Admin: 12/12/17 17:57 Dose: 20.833 mls/hr Cefazolin Sodium 2 gm/ Sodium (Chloride) 100 mls @ 200 mls/hr IVPB Q8 TAMMY PRN Reason: Protocol Stop: 12/15/17 14:01 Last Admin: 12/13/17 05:31 Dose: 200 mls/hr Midodrine (Proamatine) 5 mg PO TID [facility] Last Admin: 12/12/17 17:59 Dose: 5 mg Mupirocin (Bactroban Ointment) 0 gm TOP TID [facility] Last Admin: 12/12/17 17:58 Dose: 1 oin Ondansetron HCl (Zofran Inj) 4 mg IVP Q6 PRN PRN Reason: Nausea/Vomiting Last Admin: 12/12/17 21:54 Dose: 4 mg Oxycodone HCl (Oxycodone Immediate Release Tab) 30 mg PO Q4H PRN PRN Reason: Pain, moderate (4-7) Last Admin: 12/13/17 04:55 Dose: 30 mg Pantoprazole Sodium (Protonix Ec Tab) 40 mg PO 0600,1600 [facility] Last Admin: 12/13/17 05:32 Dose: 40 mg - Labs Labs: 12/12/17 06:50 12/12/17 06:50 - Constitutional Appears: Chronically Ill - Head Exam Head Exam: NORMAL INSPECTION - ENT Exam ENT Exam: Mucous Membranes Moist - Neck Exam Neck Exam: absent: Meningismus - Respiratory Exam Respiratory Exam: Decreased Breath Sounds - Cardiovascular Exam Cardiovascular Exam: +S1, +S2 - GI/Abdominal Exam GI & Abdominal Exam: Soft. absent: Tenderness Assessment and Plan - Assessment and Plan (Free Text) Plan: Assessment Consider sepsis S/P right sided pyelonephritis with associated cystitis, with persistent coagulase negative staph bacteremia probably port/ central line as the source S/P removal pneumobilia and elevated bilirubin, consider S/P cholecystectomy R/O choledocholethiasis carcinoma of GI tract S/P colectomy and ileostomy S/P nephrostomy tube placement on the right 2 years ago history of G-tube placement chronic renal failure Plan 4/3 blood cx are now negative and port was removed 12/07/2017 which is day 7 of antibiotics for the bacteremia (3 consecutive blood cx were positive for the coagulase negative staph prior to this); the coagulase negative staph is oxacillin sensitive - completed 14 days of Merrem for UTI and can use Cefazolin (day 7 for the bacteremia, of 7-10 days) ; ultrasound of the IV line area does not show DVT, 2D echo does not show vegetations SUSIE was negative for vegetations will continue to follow clinically overall prognosis is poor
--- NOTE | 2017-12-13 13:51 | PN ---
DATE: 12/13/2017 LOCATION: This patient is in the Transition Care Unit, room 303, bed 1. Patient was admitted to continue antibiotic treatment and management of hyperalimentation. Also, the patient gets pain management. He has history of malignant carcinoid. The patient has history of surgery, now has an ileostomy and also nephrostomy. The nephrostomy is on the right side, ileostomy is on the left side of the abdomen. The patient is seen this morning. He seemed to be in pain, but he also has pain medications ordered for him during his hospital stay. PHYSICAL EXAMINATION VITAL SIGNS: Pulse is 85, blood pressure 107/65, temperature 98.1, O2 saturation 99% on room air. LUNGS: Clinically clear. HEART: Normal sinus rhythm. ABDOMEN: Soft. He has an ileostomy on the left side of abdomen and nephrostomy on the right side of the back. The patient's condition is improving and clinically stable except the fact the patient has abdominal pain. The patient's medications consist of cefazolin 1 g every 8 hours. Patient is on Dilaudid for pain, fentanyl for pain, Oxycodone for pain. Patient is on amitriptyline 25 mg at night. Patient also getting hyperalimentation with chromium, copper, manganese and zinc. Patient is on insulin coverage too. He gets gabapentin 400 mg three times a day. LABORATORY DATA: The hemoglobin is 7.9. ASSESSMENT AND PLAN: Patient has had blood transfusion before. We will give the patient one unit of blood today and also, infusion of Venofer 100 mg and we will be able to continue the antibiotics today and discharge the patient after he finishes his course of IV antibiotics. Shira Nichols MD [facility]
--- NOTE | 2017-12-13 14:12 | PN ---
DATE: 12/13/2017 SUBJECTIVE: The patient is lying in bed comfortable. He had a small amount of liquid emesis this morning. He denies any worsening abdominal pain. He denies any bleeding from his diverting ileostomy or G-tube. PHYSICAL EXAMINATION VITAL SIGNS: Reveal temperature of 97.8, blood pressure 107/65, heart rate of 101. HEENT: Reveals sclerae to be white. Conjunctivae pale. NECK: Supple. CHEST: Reveals distant breath sounds. HEART: Reveals regular rate and rhythm. ABDOMEN: Soft. He has a diverting ileostomy in his lower abdomen. He has a PEG tube to drainage in the left upper abdomen. He has a right nephrostomy tube. EXTREMITIES: Show trace pedal edema. LABORATORY DATA: Revealed hemoglobin 7.9, BUN 23, creatinine 0.8. IMPRESSION: 1. A 62-year-old male with metastatic carcinoid of the colon with right hydronephrosis and chronic small bowel obstruction requiring gastrostomy tube decompression. 2. Anemia. 3. Chronic renal insufficiency. 4. Deconditioning. His long-term prognosis is poor. RECOMMENDATIONS: 1. Continue supportive care. 2. The patient is to receive 2 units of packed red blood cells today. Ezequiel Olivo MD
[2017-12-13] MEDS: Fat Emulsion 20% IV 250 ML IV SCH (17:09)
[2017-12-13] MEDS: [UNRECOGNIZED DRUG - NUTRITION] IV SCH (17:10)
[2017-12-14] MEDS: ceFAZolin 2 GM in Sodium Chloride 0.9% 100 ML IVPB SCH ×3 (05:17→21:38)
[2017-12-14] MEDS: Pantoprazole 40 mg EC Tab PO SCH ×2 (05:18→15:57)
[2017-12-14 07:06] LABS: BASO # 0.07 K/mm3 (0.0-2.0); BASO % 0.9 % (0.0-3.0); EOS # 0.3 (0.0-0.7); EOS % 4.4 % (1.5-5.0); GRAN # 4.02 (1.4-6.5); GRAN % 52.4 % (50.0-68.0); HEMOGLOBIN 8.8 g/dL (14.0-18.0); LYMPH # 1.4 (1.2-3.4); MEAN CELL VOLUME 88.9 fl (80.0-105.0); MEAN CORPUSCULAR HEMOGLOBIN 29.7 pg (25.0-35.0); MEAN CORPUSCULAR HGB CONC 33.5 g/dl (31.0-37.0); MEAN PLATELET VOLUME 11.4 fl (7.0-11.0); MONO # 1.9 (0.1-0.6); MONO % 24.3 % (1.0-6.0); RBC 2.96 10^6/uL (3.5-6.1); RED CELL DISTRIBUTION WIDTH 16.8 % (11.5-14.5); WHITE BLOOD COUNT 7.7 10^3/ul (4.5-11.0)
[2017-12-14 07:36] LABS: ALB/GLOB RATIO 0.7 (1.1-1.8); ALBUMIN 2.4 g/dL (3.0-4.8); ALT/SGPT 48 U/L (7-56); AST/SGOT 83 U/L (17-59); BLOOD UREA NITROGEN 21 mg/dL (7-21); CALCIUM 8.7 mg/dL (8.4-10.5); GFR AFRICAN-AMERICAN > 60; GFR NON-AFRICAN AMERICAN > 60
[2017-12-14] MEDS: oxyCODONE 15 mg Immediate Release Tab PO PRN ×2 (08:29→18:14)
[2017-12-14] MEDS: Sodium Chloride 0.9% 500 ML IV SCH ×4 (08:30→22:40)
--- NOTE | 2017-12-14 11:52 | CP.PCM.PN ---
Subjective - Date & Time of Evaluation Date of Evaluation: 12/14/17 Time of Evaluation: 10:05 - Subjective Subjective: Still with nausea, no fevers, no diarrhea. Objective - Vital Signs/Intake and Output Vital Signs (last 24 hours): Temp Pulse Resp BP Pulse Ox 98.7 F 103 H 18 118/73 97 12/13/17 16:57 12/13/17 16:57 12/13/17 16:57 12/13/17 16:57 12/13/17 16:57 Intake and Output: 12/13/17 12/14/17 18:59 06:59 Intake Total 2796 4148 Output Total 1900 2250 Balance 896 1898 - Medications Medications: Current Medications Acetaminophen (Tylenol 650 Mg Supp) 650 mg RC Q6H PRN PRN Reason: TEMP>=99.5F Acetaminophen (Tylenol 650 Mg Supp) 650 mg RC Q6H PRN PRN Reason: Headache Acetaminophen (Tylenol 325mg Tab) 650 mg PO Q6 PRN PRN Reason: Headache Acetaminophen (Tylenol 325mg Tab) 650 mg PO Q6 PRN PRN Reason: TEMP>=99.5F Amitriptyline HCl (Elavil) 25 mg PO HS [facility] Last Admin: 12/13/17 21:01 Dose: 25 mg Fentanyl (Duragesic) 1 patch TD Q72H [facility] Last Admin: 12/11/17 09:46 Dose: 1 patch Gabapentin (Neurontin) 400 mg PO TID [facility] PRN Reason: Protocol Last Admin: 12/13/17 17:20 Dose: 400 mg Hydromorphone HCl (Dilaudid) 10 mg PO Q4H PRN PRN Reason: Pain, severe (8-10) Last Admin: 12/14/17 05:18 Dose: 10 mg Sodium Chloride (Sodium Chloride 0.9%) 500 mls @ 150 mls/hr IV .Q3H20M [facility] Last Admin: 12/13/17 23:43 Dose: 150 mls/hr Cefazolin Sodium 2 gm/ Sodium (Chloride) 100 mls @ 200 mls/hr IVPB Q8 [facility] PRN Reason: Protocol Stop: 12/15/17 14:01 Last Admin: 12/14/17 05:17 Dose: 200 mls/hr Multivitamins/Vitamin C 10 ml/Chromium/Copper/Manganese/Zinc 1 ml/ Famotidine 40 mg/Insulin Human Regular 12 units / Amino Acids/Electrolytes/Dextrose 2, 015.12 mls @ 83.963 mls/hr IV .Q24H [facility] Stop: 12/16/17 18:01 Last Admin: 12/13/17 17:10 Dose: 83.963 mls/hr Fat Emulsion Intravenous (Intralipid 20%) 250 mls @ 21 mls/hr IV 1800 [facility] Stop: 12/16/17 18:01 Last Admin: 12/13/17 17:09 Dose: 21 mls/hr Midodrine (Proamatine) 5 mg PO 0800,1200,1600 [facility] PRN Reason: Protocol Last Admin: 12/13/17 16:52 Dose: 5 mg Mupirocin (Bactroban Ointment) 0 gm TOP TID [facility] Last Admin: 12/13/17 17:21 Dose: 1 oin Ondansetron HCl (Zofran Inj) 4 mg IVP Q6 PRN PRN Reason: Nausea/Vomiting Last Admin: 12/13/17 20:43 Dose: 4 mg Oxycodone HCl (Oxycodone Immediate Release Tab) 30 mg PO Q4H PRN PRN Reason: Pain, moderate (4-7) Last Admin: 12/13/17 16:51 Dose: 30 mg Pantoprazole Sodium (Protonix Ec Tab) 40 mg PO 0600,1600 [facility] Last Admin: 12/14/17 05:18 Dose: 40 mg - Labs Labs: 12/13/17 05:45 12/12/17 06:50 - Constitutional Appears: Chronically Ill - Head Exam Head Exam: NORMAL INSPECTION - Neck Exam Neck Exam: absent: Meningismus - Respiratory Exam Respiratory Exam: Decreased Breath Sounds - Cardiovascular Exam Cardiovascular Exam: +S1, +S2 - GI/Abdominal Exam GI & Abdominal Exam: Soft. absent: Tenderness Assessment and Plan - Assessment and Plan (Free Text) Plan: Assessment Consider sepsis S/P right sided pyelonephritis with associated cystitis, with persistent coagulase negative staph bacteremia probably port/ central line as the source S/P removal pneumobilia and elevated bilirubin, consider S/P cholecystectomy R/O choledocholethiasis carcinoma of GI tract S/P colectomy and ileostomy S/P nephrostomy tube placement on the right 2 years ago history of G-tube placement chronic renal failure Plan 4/3 blood cx are now negative and port was removed 12/07/2017 which is day 8 of antibiotics for the bacteremia (3 consecutive blood cx were positive for the coagulase negative staph prior to this); the coagulase negative staph is oxacillin sensitive - completed 14 days of Merrem for UTI and can use Cefazolin (day 8 for the bacteremia, of 7-10 days) ; ultrasound of the IV line area does not show DVT, 2D echo does not show vegetations - can d/c antibiotics after today SUSIE was negative for vegetations will continue to follow clinically overall prognosis is poor
--- NOTE | 2017-12-14 13:57 | PN ---
DATE: 12/14/17 SUBJECTIVE: This patient is in [facility] in the [facility]. The patient needs to complete his antibiotic treatment, which would be the 12th that is tomorrow. In the mean time, the patient is seen this morning. He is comfortable, getting all his medications and the intravenous fluid and nutritional support. PHYSICAL EXAMINATION VITAL SIGNS: His pulse is 103, blood pressure 118/73, O2 sat is 97% on room air. HEENT: Patient's head is normocephalic. LUNGS: Clear. HEART: Normal sinus rhythm. S1 and S2 present. ABDOMEN: Soft. The patient has an ileostomy on the left side of abdomen. The patient also has a nephrostomy on the right lumbar area. He has ileostomy bag that collects ileal fluid and nephrostomy bag that collects the urine from the right kidney. MEDICATIONS: Continue to remain the same. Patient is on Merrem 1g IV every 8 hours; patient is on pain medication, he is on Duragesic patch, Percocet and also Dilaudid. Patient also gets Elavil 25 mg at night and the IV hyperalimentation consists of micronutrients and patient also gets gabapentin 400 mg three times a day and midodrine 5 mg p.o. daily for control of his blood pressure, which sometime tends to dip. ASSESSMENT AND PLAN: The patient's overall prognosis is guarded. Condition is improving. We will have one more day of antibiotic treatment and plan is to discharge the patient the day after tomorrow. Shira Nichols MD [facility]
[2017-12-14] MEDS: Fat Emulsion 20% IV 250 ML IV SCH (18:14)
[2017-12-14] MEDS: [UNRECOGNIZED DRUG - NUTRITION] IV SCH (21:03)
[2017-12-15] MEDS: Pantoprazole 40 mg EC Tab PO SCH ×2 (05:11→17:14)
[2017-12-15] MEDS: ceFAZolin 2 GM in Sodium Chloride 0.9% 100 ML IVPB SCH ×2 (05:11→13:43)
[2017-12-15] MEDS: Sodium Chloride 0.9% 500 ML IV SCH ×4 (05:59→21:17)
--- NOTE | 2017-12-15 11:08 | PN ---
DATE: 12/15/2017 SUBJECTIVE: The patient is seen in the Transitional Care Unit this morning. The patient will complete the antibiotic treatment today and physical therapy. The patient is to be discharged either later today or tomorrow. The patient is feeling better. PHYSICAL EXAMINATION VITAL SIGNS: The patient's pulse is 85, blood pressure 122/70, respirations are 18, the patient is afebrile, O2 sat is 98% on room air. HEENT: Head is normocephalic. LUNGS: Clear. HEART: Normal sinus rhythm. S1 and S2 present. ABDOMEN: Soft. The patient does have ileostomy on the left side of the abdomen and a nephrostomy on the right side in the lumbar area. OPERATIONS SUPPORT SPECIALIST: Within normal limits. ASSESSMENT AND PLAN: The patient's summary of medications, the patient is on intravenous hyperalimentation at home. The patient will have to consult or call the infusion company recommended by his oncologist to resume outpatient infusions. The patient will get medications at home for pain. The patient has also medicine for gastritis. The patient gets Proamatine for hypotension. The patient's diet will be as already established. No changes. The patient will follow up with the oncologist and with Dr. Wagner next week. In the meantime, if the patient has any problem, the patient can contact our office at [phone]; that will be given to the patient. Shira Nichols MD [facility]
--- NOTE | 2017-12-15 12:32 | CP.PCM.PN ---
Subjective - Date & Time of Evaluation Date of Evaluation: 12/15/17 Time of Evaluation: 10:45 - Subjective Subjective: Comfortable, no fevers, not in distress. No diarrhea. Objective - Vital Signs/Intake and Output Vital Signs (last 24 hours): Temp Pulse Resp BP Pulse Ox 98.7 F 85 18 122/69 97 12/14/17 17:35 12/14/17 17:35 12/14/17 17:35 12/14/17 17:35 12/14/17 17:35 Intake and Output: 12/14/17 12/15/17 18:59 06:59 Intake Total 1370 Output Total 1450 3600 Balance -1450 -2230 - Medications Medications: Current Medications Acetaminophen (Tylenol 650 Mg Supp) 650 mg RC Q6H PRN PRN Reason: TEMP>=99.5F Acetaminophen (Tylenol 650 Mg Supp) 650 mg RC Q6H PRN PRN Reason: Headache Acetaminophen (Tylenol 325mg Tab) 650 mg PO Q6 PRN PRN Reason: Headache Last Admin: 12/14/17 23:09 Dose: 650 mg Acetaminophen (Tylenol 325mg Tab) 650 mg PO Q6 PRN PRN Reason: TEMP>=99.5F Amitriptyline HCl (Elavil) 25 mg PO HS [facility] Last Admin: 12/14/17 21:05 Dose: 25 mg Fentanyl (Duragesic) 1 patch TD Q72H [facility] Last Admin: 12/14/17 09:20 Dose: 1 patch Gabapentin (Neurontin) 400 mg PO TID [facility] PRN Reason: Protocol Last Admin: 12/14/17 18:14 Dose: 400 mg Hydromorphone HCl (Dilaudid) 10 mg PO Q4H PRN PRN Reason: Pain, severe (8-10) Last Admin: 12/14/17 15:23 Dose: 10 mg Sodium Chloride (Sodium Chloride 0.9%) 500 mls @ 150 mls/hr IV .Q3H20M [facility] Last Admin: 12/15/17 05:59 Dose: 150 mls/hr Cefazolin Sodium 2 gm/ Sodium (Chloride) 100 mls @ 200 mls/hr IVPB Q8 [facility] PRN Reason: Protocol Stop: 12/15/17 14:01 Last Admin: 12/15/17 05:11 Dose: 200 mls/hr Multivitamins/Vitamin C 10 ml/Chromium/Copper/Manganese/Zinc 1 ml/ Famotidine 40 mg/Insulin Human Regular 12 units / Amino Acids/Electrolytes/Dextrose 2, 015.12 mls @ 83.963 mls/hr IV .Q24H [facility] Stop: 12/16/17 18:01 Last Admin: 12/14/17 21:03 Dose: 83.963 mls/hr Fat Emulsion Intravenous (Intralipid 20%) 250 mls @ 21 mls/hr IV 1800 [facility] Stop: 12/16/17 18:01 Last Admin: 12/14/17 18:14 Dose: 21 mls/hr Midodrine (Proamatine) 5 mg PO 0800,1200,1600 [facility] PRN Reason: Protocol Last Admin: 12/14/17 15:57 Dose: 5 mg Mupirocin (Bactroban Ointment) 0 gm TOP TID [facility] Last Admin: 12/14/17 19:09 Dose: 1 oin Ondansetron HCl (Zofran Inj) 4 mg IVP Q6 PRN PRN Reason: Nausea/Vomiting Last Admin: 12/14/17 15:58 Dose: 4 mg Oxycodone HCl (Oxycodone Immediate Release Tab) 30 mg PO Q4H PRN PRN Reason: Pain, moderate (4-7) Last Admin: 12/14/17 18:14 Dose: 30 mg Pantoprazole Sodium (Protonix Ec Tab) 40 mg PO 0600,1600 [facility] Last Admin: 12/15/17 05:11 Dose: 40 mg - Labs Labs: 12/14/17 06:30 12/14/17 06:30 - Constitutional Appears: Chronically Ill - Head Exam Head Exam: NORMAL INSPECTION - Neck Exam Neck Exam: absent: Meningismus - Respiratory Exam Respiratory Exam: Decreased Breath Sounds - Cardiovascular Exam Cardiovascular Exam: +S1, +S2 - GI/Abdominal Exam GI & Abdominal Exam: Soft. absent: Tenderness Assessment and Plan - Assessment and Plan (Free Text) Plan: Assessment Consider sepsis S/P right sided pyelonephritis with associated cystitis, with persistent coagulase negative staph bacteremia probably port/ central line as the source S/P removal pneumobilia and elevated bilirubin, consider S/P cholecystectomy R/O choledocholethiasis carcinoma of GI tract S/P colectomy and ileostomy S/P nephrostomy tube placement on the right 2 years ago history of G-tube placement chronic renal failure Plan 12/06 blood cx are now negative and port was removed 12/07/2017 which is day 9 of antibiotics for the bacteremia (3 consecutive blood cx were positive for the coagulase negative staph prior to this); the coagulase negative staph is oxacillin sensitive - completed 14 days of Merrem for UTI and can use Cefazolin (day 9 for the bacteremia, of 7-10 days) ; ultrasound of the IV line area does not show DVT, 2D echo does not show vegetations - can d/c antibiotics after today SUSIE was negative for vegetations will continue to follow clinically overall prognosis is poor
[2017-12-15] MEDS: [UNRECOGNIZED DRUG - NUTRITION] IV SCH (18:29)
[2017-12-15] MEDS: Fat Emulsion 20% IV 250 ML IV SCH (18:31)
[2017-12-15] MEDS: oxyCODONE 15 mg Immediate Release Tab PO PRN (18:42)
--- NOTE | 2017-12-16 00:44 | CP.PCM.PN ---
Subjective - Date & Time of Evaluation Date of Evaluation: 12/15/17 Time of Evaluation: 17:00 - Subjective Subjective: No complaints. Objective - Vital Signs/Intake and Output Vital Signs (last 24 hours): Temp Pulse Resp BP Pulse Ox 98.6 F 84 18 123/70 99 12/15/17 16:00 12/15/17 16:00 12/15/17 16:00 12/15/17 16:00 12/15/17 16:00 Intake and Output: 12/15/17 12/16/17 18:59 06:59 Intake Total 480 Output Total 650 Balance -170 - Medications Medications: Current Medications Acetaminophen (Tylenol 650 Mg Supp) 650 mg RC Q6H PRN PRN Reason: TEMP>=99.5F Acetaminophen (Tylenol 650 Mg Supp) 650 mg RC Q6H PRN PRN Reason: Headache Acetaminophen (Tylenol 325mg Tab) 650 mg PO Q6 PRN PRN Reason: Headache Last Admin: 12/16/17 00:26 Dose: 650 mg Acetaminophen (Tylenol 325mg Tab) 650 mg PO Q6 PRN PRN Reason: TEMP>=99.5F Amitriptyline HCl (Elavil) 25 mg PO HS [facility] Last Admin: 12/15/17 21:12 Dose: 25 mg Fentanyl (Duragesic) 1 patch TD Q72H [facility] Last Admin: 12/14/17 09:20 Dose: 1 patch Gabapentin (Neurontin) 400 mg PO TID [facility] PRN Reason: Protocol Last Admin: 12/15/17 17:14 Dose: 400 mg Hydromorphone HCl (Dilaudid) 10 mg PO Q4H PRN PRN Reason: Pain, severe (8-10) Last Admin: 12/15/17 21:17 Dose: 10 mg Sodium Chloride (Sodium Chloride 0.9%) 500 mls @ 150 mls/hr IV .Q3H20M [facility] Last Admin: 12/15/17 21:17 Dose: 150 mls/hr Multivitamins/Vitamin C 10 ml/Chromium/Copper/Manganese/Zinc 1 ml/ Famotidine 40 mg/Insulin Human Regular 12 units / Amino Acids/Electrolytes/Dextrose 2, 015.12 mls @ 83.963 mls/hr IV .Q24H [facility] Stop: 12/16/17 18:01 Last Admin: 12/15/17 18:29 Dose: 83.963 mls/hr Fat Emulsion Intravenous (Intralipid 20%) 250 mls @ 21 mls/hr IV 1800 [facility] Stop: 12/16/17 18:01 Last Admin: 12/15/17 18:31 Dose: 21 mls/hr Midodrine (Proamatine) 5 mg PO 0800,1200,1600 [facility] PRN Reason: Protocol Last Admin: 12/15/17 17:15 Dose: 5 mg Mupirocin (Bactroban Ointment) 0 gm TOP TID [facility] Last Admin: 12/15/17 17:15 Dose: 1 oin Ondansetron HCl (Zofran Inj) 4 mg IVP Q6 PRN PRN Reason: Nausea/Vomiting Last Admin: 12/15/17 18:35 Dose: 4 mg Oxycodone HCl (Oxycodone Immediate Release Tab) 30 mg PO Q4H PRN PRN Reason: Pain, moderate (4-7) Last Admin: 12/15/17 18:42 Dose: 30 mg Pantoprazole Sodium (Protonix Ec Tab) 40 mg PO 0600,1600 [facility] Last Admin: 12/15/17 17:14 Dose: 40 mg - Labs Labs: 12/14/17 06:30 12/14/17 06:30 - Head Exam Head Exam: ATRAUMATIC - Eye Exam Eye Exam: Normal appearance - ENT Exam ENT Exam: Mucous Membranes Dry - Respiratory Exam Respiratory Exam: NORMAL BREATHING PATTERN - Cardiovascular Exam Cardiovascular Exam: +S1, +S2 - GI/Abdominal Exam GI & Abdominal Exam: Normal Bowel Sounds Assessment and Plan (1) Anemia Assessment & Plan: chronic disease from malignancy s/p PRBC transfusion Status: Acute (2) Carcinoid tumor Assessment & Plan: outpatient treatment Status: Acute
[2017-12-16] MEDS: Pantoprazole 40 mg EC Tab PO SCH ×2 (05:12→15:46)
[2017-12-16] MEDS: Sodium Chloride 0.9% 500 ML IV SCH ×2 (05:13→12:15)
--- NOTE | 2017-12-16 08:20 | CP.PCM.PN ---
Subjective - Date & Time of Evaluation Date of Evaluation: 12/16/17 Time of Evaluation: 07:40 - Subjective Subjective: (covering for Dr. Wagner) Patient is seen this morning. He is feeling better. Objective - Vital Signs/Intake and Output Vital Signs (last 24 hours): Temp Pulse Resp BP Pulse Ox 98.6 F 84 18 123/70 99 12/15/17 16:00 12/15/17 16:00 12/15/17 16:00 12/15/17 16:00 12/15/17 16:00 Intake and Output: 12/16/17 12/16/17 06:59 18:59 Intake Total 480 Output Total 2900 Balance -2420 - Medications Medications: Current Medications Acetaminophen (Tylenol 650 Mg Supp) 650 mg RC Q6H PRN PRN Reason: TEMP>=99.5F Acetaminophen (Tylenol 650 Mg Supp) 650 mg RC Q6H PRN PRN Reason: Headache Acetaminophen (Tylenol 325mg Tab) 650 mg PO Q6 PRN PRN Reason: Headache Last Admin: 12/16/17 00:26 Dose: 650 mg Acetaminophen (Tylenol 325mg Tab) 650 mg PO Q6 PRN PRN Reason: TEMP>=99.5F Amitriptyline HCl (Elavil) 25 mg PO HS [facility] Last Admin: 12/15/17 21:12 Dose: 25 mg Fentanyl (Duragesic) 1 patch TD Q72H [facility] Last Admin: 12/14/17 09:20 Dose: 1 patch Gabapentin (Neurontin) 400 mg PO TID [facility] PRN Reason: Protocol Last Admin: 12/15/17 17:14 Dose: 400 mg Hydromorphone HCl (Dilaudid) 10 mg PO Q4H PRN PRN Reason: Pain, severe (8-10) Last Admin: 12/15/17 21:17 Dose: 10 mg Sodium Chloride (Sodium Chloride 0.9%) 500 mls @ 150 mls/hr IV .Q3H20M [facility] Last Admin: 12/16/17 05:13 Dose: 150 mls/hr Multivitamins/Vitamin C 10 ml/Chromium/Copper/Manganese/Zinc 1 ml/ Famotidine 40 mg/Insulin Human Regular 12 units / Amino Acids/Electrolytes/Dextrose 2, 015.12 mls @ 83.963 mls/hr IV .Q24H [facility] Stop: 12/16/17 18:01 Last Admin: 12/15/17 18:29 Dose: 83.963 mls/hr Midodrine (Proamatine) 5 mg PO 0800,1200,1600 [facility] PRN Reason: Protocol Last Admin: 12/15/17 17:15 Dose: 5 mg Mupirocin (Bactroban Ointment) 0 gm TOP TID [facility] Last Admin: 12/15/17 17:15 Dose: 1 oin Ondansetron HCl (Zofran Inj) 4 mg IVP Q6 PRN PRN Reason: Nausea/Vomiting Last Admin: 12/15/17 18:35 Dose: 4 mg Oxycodone HCl (Oxycodone Immediate Release Tab) 30 mg PO Q4H PRN PRN Reason: Pain, moderate (4-7) Last Admin: 12/15/17 18:42 Dose: 30 mg Pantoprazole Sodium (Protonix Ec Tab) 40 mg PO 0600,1600 [facility] Last Admin: 12/16/17 05:12 Dose: 40 mg - Labs Labs: 12/14/17 06:30 12/14/17 06:30 - Constitutional Appears: No Acute Distress - Head Exam Head Exam: ATRAUMATIC, NORMOCEPHALIC - Respiratory Exam Respiratory Exam: Clear to Ausculation Bilateral, NORMAL BREATHING PATTERN - Cardiovascular Exam Cardiovascular Exam: REGULAR RHYTHM, +S1, +S2 - GI/Abdominal Exam Additional comments: + left iliostomy, + right nephrostomy - Extremities Exam Extremities Exam: Normal Inspection - Neurological Exam Neurological Exam: Alert, Awake, Oriented x3 Assessment and Plan - Assessment and Plan (Free Text) Assessment: sepsis secondary to cystitis/coagulase negative staphylococcus bacteremia carcinoid tumor s/p left iliostomy, right nephrostomy Plan: Patient is feeling better. He has completed course of IV antibiotics as order by Dr. Shepherd, infectious disease. He will be discharged home today. He will followup with his oncologist at [facility]. He will continue his home medications as before.
--- NOTE | 2017-12-16 11:43 | CP.PCM.PN ---
Subjective - Date & Time of Evaluation Date of Evaluation: 12/16/17 Time of Evaluation: 10:30 - Subjective Subjective: Comfortable in bed, no fevers, not in distress, no abdominal pain, no diarrhea. Objective - Vital Signs/Intake and Output Vital Signs (last 24 hours): Temp Pulse Resp BP Pulse Ox 98.6 F 84 18 123/70 99 12/15/17 16:00 12/15/17 16:00 12/15/17 16:00 12/15/17 16:00 12/15/17 16:00 Intake and Output: 12/15/17 12/16/17 18:59 06:59 Intake Total 480 Output Total 650 Balance -170 - Medications Medications: Current Medications Acetaminophen (Tylenol 650 Mg Supp) 650 mg RC Q6H PRN PRN Reason: TEMP>=99.5F Acetaminophen (Tylenol 650 Mg Supp) 650 mg RC Q6H PRN PRN Reason: Headache Acetaminophen (Tylenol 325mg Tab) 650 mg PO Q6 PRN PRN Reason: Headache Last Admin: 12/16/17 00:26 Dose: 650 mg Acetaminophen (Tylenol 325mg Tab) 650 mg PO Q6 PRN PRN Reason: TEMP>=99.5F Amitriptyline HCl (Elavil) 25 mg PO HS [facility] Last Admin: 12/15/17 21:12 Dose: 25 mg Fentanyl (Duragesic) 1 patch TD Q72H [facility] Last Admin: 12/14/17 09:20 Dose: 1 patch Gabapentin (Neurontin) 400 mg PO TID TAMMY PRN Reason: Protocol Last Admin: 12/15/17 17:14 Dose: 400 mg Hydromorphone HCl (Dilaudid) 10 mg PO Q4H PRN PRN Reason: Pain, severe (8-10) Last Admin: 12/15/17 21:17 Dose: 10 mg Sodium Chloride (Sodium Chloride 0.9%) 500 mls @ 150 mls/hr IV .Q3H20M [facility] Last Admin: 12/16/17 05:13 Dose: 150 mls/hr Multivitamins/Vitamin C 10 ml/Chromium/Copper/Manganese/Zinc 1 ml/ Famotidine 40 mg/Insulin Human Regular 12 units / Amino Acids/Electrolytes/Dextrose 2, 015.12 mls @ 83.963 mls/hr IV .Q24H TAMMY Stop: 12/16/17 18:01 Last Admin: 12/15/17 18:29 Dose: 83.963 mls/hr Fat Emulsion Intravenous (Intralipid 20%) 250 mls @ 21 mls/hr IV 1800 TAMMY Stop: 12/16/17 18:01 Last Admin: 12/15/17 18:31 Dose: 21 mls/hr Midodrine (Proamatine) 5 mg PO 0800,1200,1600 TAMMY PRN Reason: Protocol Last Admin: 12/15/17 17:15 Dose: 5 mg Mupirocin (Bactroban Ointment) 0 gm TOP TID [facility] Last Admin: 12/15/17 17:15 Dose: 1 oin Ondansetron HCl (Zofran Inj) 4 mg IVP Q6 PRN PRN Reason: Nausea/Vomiting Last Admin: 12/15/17 18:35 Dose: 4 mg Oxycodone HCl (Oxycodone Immediate Release Tab) 30 mg PO Q4H PRN PRN Reason: Pain, moderate (4-7) Last Admin: 12/15/17 18:42 Dose: 30 mg Pantoprazole Sodium (Protonix Ec Tab) 40 mg PO 0600,1600 [facility] Last Admin: 12/16/17 05:12 Dose: 40 mg - Labs Labs: 12/14/17 06:30 12/14/17 06:30 - Constitutional Appears: Chronically Ill - Head Exam Head Exam: NORMAL INSPECTION - Neck Exam Neck Exam: absent: Meningismus - Respiratory Exam Respiratory Exam: Decreased Breath Sounds - Cardiovascular Exam Cardiovascular Exam: +S1, +S2 - GI/Abdominal Exam GI & Abdominal Exam: Soft. absent: Tenderness Assessment and Plan - Assessment and Plan (Free Text) Plan: Assessment S/P sepsis S/P right sided pyelonephritis with associated cystitis, with persistent coagulase negative staph bacteremia probably port/ central line as the source S/P removal pneumobilia and elevated bilirubin, consider S/P cholecystectomy R/O choledocholethiasis carcinoma of GI tract S/P colectomy and ileostomy S/P nephrostomy tube placement on the right 2 years ago history of G-tube placement chronic renal failure Plan completed course of IV Cefazolin for the bacteremia and also completed course of Merrem for UTI - will continue to monitor the patient off antibiotics since he is at risk for nosocomial infections since he is now off antibiotics, would recommend removal of PICC line if not needed for anything else overall prognosis is poor
[2017-12-16] MEDS: oxyCODONE 15 mg Immediate Release Tab PO PRN (13:33)
[2017-12-16 17:35] VITALS: BP 121/76; PULSE 77; TEMP 98.4; O2SAT 99
--- NOTE | 2017-12-17 08:25 | DS ---
BRIEF HISTORY: This is a 62-year-old male with history of carcinoid malignancy, status post multiple surgeries, left ileostomy and right nephrostomy, who developed sepsis with Staphylococcus coagulase-negative bacteremia. Patient's PICC line was removed and new PICC line was inserted. SUSIE was done ,which was negative for vegetations. Patient was then transferred to the Transitional Care Unit for completion of 7 days of IV antibiotics and physical therapy for deconditioning and generalized weakness. While in the Transitional Care Unit, he was continued on OxyContin, Duragesic patch and Dilaudid as needed for pain secondary to his malignancy. He participated in physical therapy. He did have a drop in his hemoglobin to 7.8. He was transfused 1 unit of blood and his hemoglobin went up to 8.8. Once the patient finished his 7 days of antibiotics, he was cleared for discharge by Infectious Disease. He was discharged home in fair condition, although his overall prognosis is poor. DISCHARGE MEDICATIONS: Elavil 25 mg at night, Neurontin 400 mg three times a day, oxycodone 30 mg 4 times a day as need for pain, midodrine 2.5 mg three times a day, Zofran 4 mg 4 times a day as needed for nausea. Patient is also receiving TPN at home through his oncologist. He will follow up as an outpatient with his oncologist at [facility]. DISCHARGE DIAGNOSES: Sepsis secondary to Staphylococcus coagulase negative bacteremia, cystitis, carcinoid malignancy, status post right nephrostomy and left ileostomy, status post change of right nephrostomy tube. Main Nichols MD MARITZA
== END 2017-12-16 17:41 | disposition home health service (06) | DRG 945 ==
LOC: TRCU 18:26
PROVIDERS: ADMIT Internal Medicine; ATTEND Internal Medicine
PROC: 3E0336Z Introduction of Nutritional Substance into Peripheral Vein, Percutaneous Approach (ICD-10-PCS; 2017-12-08)
PROC: F07Z9ZZ Gait Training/Functional Ambulation Treatment (ICD-10-PCS; principal; 2017-12-09)
PROC: F08Z4ZZ Home Management Treatment (ICD-10-PCS; 2017-12-09)
DX: R53.1 Weakness (principal); A41.1 Sepsis due to other specified staphylococcus; C7A.029 Malignant carcinoid tumor of the large intestine, unspecified portion; G89.3 Neoplasm related pain (acute) (chronic); N30.90 Cystitis, unspecified without hematuria; Z79.2 Long term (current) use of antibiotics; D63.8 Anemia in other chronic diseases classified elsewhere; E87.6 Hypokalemia; N18.3 Chronic kidney disease, stage 3 (moderate); K29.70 Gastritis, unspecified, without bleeding; Z93.1 Gastrostomy status; Z93.2 Ileostomy status; Z93.6 Other artificial openings of urinary tract status; Z87.891 Personal history of nicotine dependence

== ENCOUNTER 2017-12-17 22:53 | Emergency (ER) | payer OTHER ==
[2017-12-17 22:53] VITALS: BMI 21.2
[2017-12-17 23:09] VITALS: TEMP 98.1
--- NOTE | 2017-12-18 00:12 | ED PDOC ---
Arrival/HPI - General Chief Complaint: Medical Clearance Time Seen by Provider: 12/17/17 23:16 Historian: Patient - History of Present Illness Narrative History of Present Illness (Text): 12/18/17 00:04 62 yo M with multiple chronic medical conditions, including history of carcinoid malignancy status post multiple surgeries, with ileostomy, nephrostomy , and left arm PICC line, recently discharged after treatment for sepsis with coag-neg staph bacteremia, s/p PICC removal and replacement. He presents complaining of bleeding from the site of the PICC line. Patient was discharged yesterday, did not have problems with bleeding prior to discharge. Today, he woke up from sleep, and had blood all over his left arm. After he cleaned it up , it did not continue to actively bleed. He denies pain at the site. He denies dizziness, chest pain, shortness of breath, hemoptysis, hematemesis, epistaxis, melena, hematochezia, easy bruising, or swollen joints. He is otherwise asymptomatic, and he denies fever, chills, abdominal pain, nausea, vomiting, diarrhea, constipation. Time/Duration: Prior to Arrival Symptom Course: Improving Past Medical History - Provider Review Nursing Documentation Reviewed: Yes - Travel History Have you recently traveled outside [place] w/in the past 3 mons?: No - Past History Past History: Non-Contributing - Infectious Disease Hx of Infectious Diseases: None - Tetanus Immunization Tetanus Immunization: Unknown - Cardiac Hx Cardiac Disorders: No - Pulmonary Hx Respiratory Disorders: No - Neurological Hx Neurological Disorder: No - HEENT Hx HEENT Disorder: No - Renal Hx Renal Disorder: Yes Other/Comment: HAS UROSTOMY - Endocrine/Metabolic Hx Endocrine Disorders: No - Hematological/Oncological Hx Cancer: (Gastric; colon) - Integumentary Hx Dermatological Disorder: No - Musculoskeletal/Rheumatological Hx Falls: No - Gastrointestinal Hx Gastrointestinal Disorders: Yes - Genitourinary/Gynecological Hx Reproductive Disorders: No - Psychiatric Hx Psychophysiologic Disorder: No Hx Substance Use: No - Surgical History Other/Comment: COLOSTOMY, PEG TUBE, UROSTOMY - Suicidal Assessment Feels Threatened In Home Enviroment: No Family/Social History - Physician Review Nursing Documentation Reviewed: Yes Family/Social History: Unknown Family HX Smoking Status: Former Smoker Hx Alcohol Use: No Hx Substance Use: No Hx Substance Use Treatment: No Allergies/Home Meds Allergies/Adverse Reactions: Allergies morphine Allergy (Verified 12/08/17 19:18) ANAPHYLAXIS Home Medications: Home Meds Medication Instructions Recorded Confirmed Amitriptyline [Elavil] 1 tab PO HS 11/27/17 12/08/17 Gabapentin [Neurontin] 1 tab PO TID 11/27/17 12/08/17 Home Med 1 appl IV HS 11/27/17 12/08/17 Loperamide [Imodium] 1 cap PO TID PRN 11/27/17 12/08/17 Ondansetron ODT [Zofran ODT] 1 tab PO QID PRN 11/27/17 12/08/17 oxyCODONE [oxyCODONE Immediate 1 tab PO QID PRN 11/27/17 12/08/17 Release Tab] Review of Systems - Review of Systems Constitutional: Normal Eyes: Normal ENT: Normal Respiratory: Normal Cardiovascular: Normal Gastrointestinal: Normal Genitourinary Male: Normal Musculoskeletal: Normal Skin: Normal Neurological: Normal Endocrine: Normal Hemo/Lymphatic: Normal. absent: Easy Bleeding, Easy Bruising Psychiatric: Normal Physical Exam Vital Signs Reviewed: Yes Vital Signs Temp Pulse Resp BP Pulse Ox 12/17/17 23:08 98.1 F 81 18 115/71 98 Temperature: Afebrile Blood Pressure: Normal Pulse: Regular Respiratory Rate: Normal Appearance: Positive for: Well-Appearing, Non-Toxic, Comfortable Pain Distress: None Mental Status: Positive for: Alert and Oriented X 3 - Systems Exam Head: Present: Atraumatic, Normocephalic Pupils: Present: PERRL Extroacular Muscles: Present: EOMI Conjunctiva: Present: Normal Mouth: Present: Moist Mucous Membranes Neck: Present: Normal Range of Motion Respiratory/Chest: Present: Clear to Auscultation, Good Air Exchange. No: Respiratory Distress, Accessory Muscle Use Cardiovascular: Present: Regular Rate and Rhythm, Normal S1, S2. No: Tachycardic Abdomen: Present: Normal Bowel Sounds, Ostomy Tubes (ileostomy dresssing and bag in place, scant drainage noted. Bag empty. No bleeding). No: Tenderness, Distention Upper Extremity: Present: Normal Inspection, Other (PICC line in left antecubital fossa, no acitve bleeding, no fluctuance, drainage, ecchymosis, or tenderness). No: Cyanosis, Edema Lower Extremity: Present: Normal Inspection. No: Edema, CALF TENDERNESS Neurological: Present: GCS=15, CN II-XII Intact, Speech Normal Skin: Present: Warm, Dry, Normal Color Psychiatric: Present: Alert, Oriented x 3, Normal Insight, Normal Concentration Medical Decision Making ED Course and Treatment: 12/18/17 00:16 Impression: Bleeding from PICC site Differential Diagnosis included but are not limited to: bleeding diathesis, anemia Plan: -- Scant old blood noted around/underneath dressing. No active bleeding. Patient asymptomatic. -- Date on dressing indicates placement on 12/12/17, no change needed today. Patient has wound care nurse follow up tomorrow (Tuesday) who will change the dressing at home -- Reassess and disposition Prior Visits: Notes and results from previous visits were reviewed. Patient was last seen in the emergency department on Progress Notes: -- Discussed with patient at length his multiple medical comorbidities and possible diagnoses and complications. Patient is asymptomatic at this time, and there is no active bleeding. No further workup indicated. Patient comfortable to go home, will follow up with his primary care doctor and wound care nurse tomorrow. -- Instructed patient to return for any new or worsening concerns Disposition/Present on Arrival - Present on Arrival Any Indicators Present on Arrival: No History of DVT/PE: No History of Uncontrolled Diabetes: No Urinary Catheter: No History of Decub. Ulcer: No History Surgical Site Infection Following: None - Disposition Have Diagnosis and Disposition been Completed?: Yes Diagnosis: Bleeding from PICC line Disposition: HOME/ ROUTINE Disposition Time: 00:21 Patient Plan: Discharge Condition: FAIR Referrals: PCP,NO [Primary Care Provider] - Follow up with primary
[2017-12-18 00:57] VITALS: BP 118/65; PULSE 82; RESP 17; O2SAT 99
== END 2017-12-18 00:53 | disposition home or self-care (01) ==
LOC: ED 22:53
DX: T82.838A Hemorrhage due to vascular prosthetic devices, implants and grafts, initial encounter (principal); Z87.891 Personal history of nicotine dependence

== ENCOUNTER 2018-01-08 07:43 | Inpatient (IN) | payer MEDICARE, OTHER ==
[2018-01-08] MEDS ORDERED: Sodium Chloride 0.9% 1,000 ML IV STA (08:06)
--- NOTE | 2018-01-08 08:11 | ED PDOC ---
Arrival/HPI - General Chief Complaint: Trauma Time Seen by Provider: 01/08/18 07:45 Historian: Patient, Family - History of Present Illness Narrative History of Present Illness (Text): 01/08/18 08:08 Patient is a 62 yo male, past medical history of carcinoid tumor reportedly, history of sepsis, hx of right nephrostomy tube, hx of ileostomy, hx of G-tube, hx of left arm PICC line, presents to the Emergency Department with left sided abdominal and left sided back pain gradual onset, constant, severe, since last night. He reports that when he went to bathroom today to "clean myself up" he got very dizzy and lightheaded and fell backward, but did not lose consiousness. Denies head injury or back injury. Denies chest pain or shortness of breath. Reports typical drainage from his ileostomy, although states over past several days he has had bloody drainage from his nephrostomy bag and also dark urine from his penis. Denies vomiting. Reports generally poor appetite but he has tolerated oral intake. Reports sensation of feeling chills occasionally. Symptom Onset: Gradual Symptom Course: Worsening Past Medical History - Past History Past History: Non-Contributing - Infectious Disease Hx of Infectious Diseases: None - Tetanus Immunization Tetanus Immunization: Unknown - Cardiac Hx Cardiac Disorders: No - Pulmonary Hx Respiratory Disorders: No - Neurological Hx Neurological Disorder: No - HEENT Hx HEENT Disorder: No - Renal Hx Renal Disorder: Yes Other/Comment: HAS UROSTOMY - Endocrine/Metabolic Hx Endocrine Disorders: No - Hematological/Oncological Hx Cancer: (Gastric; colon) - Integumentary Hx Dermatological Disorder: No - Musculoskeletal/Rheumatological Hx Falls: No - Gastrointestinal Hx Gastrointestinal Disorders: Yes Other/Comment: L colostomy. G tube - Genitourinary/Gynecological Hx Reproductive Disorders: No - Psychiatric Hx Psychophysiologic Disorder: No Hx Substance Use: No - Surgical History Other/Comment: COLOSTOMY, PEG TUBE, UROSTOMY - Anesthesia Hx Anesthesia Reactions: No Hx Malignant Hyperthermia: No - Suicidal Assessment Feels Threatened In Home Enviroment: No Family/Social History Family/Social History: Unknown Family HX Smoking Status: Former Smoker Hx Alcohol Use: No Hx Substance Use: No Hx Substance Use Treatment: No Allergies/Home Meds Allergies/Adverse Reactions: Allergies morphine Allergy (Verified 12/08/17 19:18) ANAPHYLAXIS Home Medications: Home Meds Medication Instructions Recorded Confirmed Amitriptyline [Elavil] 1 tab PO HS 11/27/17 12/08/17 Gabapentin [Neurontin] 1 tab PO TID 11/27/17 12/08/17 Home Med 1 appl IV HS 11/27/17 12/08/17 Loperamide [Imodium] 1 cap PO TID PRN 11/27/17 12/08/17 Ondansetron ODT [Zofran ODT] 1 tab PO QID PRN 11/27/17 12/08/17 oxyCODONE [oxyCODONE Immediate 1 tab PO QID PRN 11/27/17 12/08/17 Release Tab] Review of Systems - Review of Systems Constitutional: Fatigue, Fevers Eyes: absent: Vision Changes, Eye Pain ENT: absent: Hearing Changes Respiratory: absent: SOB Cardiovascular: absent: Chest Pain, Palpitations, MARR Gastrointestinal: Abdominal Pain, Appetite Changes. absent: Constipation, Diarrhea, Nausea Genitourinary Male: Hematuria, Urinary Output Changes Musculoskeletal: Back Pain. absent: Neck Pain Skin: absent: Rash Neurological: absent: Headache, Dizziness, Focal Weakness Endocrine: absent: Polyuria Hemo/Lymphatic: absent: Easy Bleeding Psychiatric: absent: Depression Physical Exam Vital Signs Reviewed: Yes Vital Signs Temp Pulse Resp BP Pulse Ox 01/08/18 11:28 97.9 F 112 H 20 131/82 100 01/08/18 10:23 12 L 20 128/72 98 01/08/18 09:36 110 H 20 110/62 100 01/08/18 09:20 111 H 20 110/73 98 01/08/18 07:44 97.9 F 114 H 18 96/52 L 98 Temperature: Afebrile Blood Pressure: Hypotensive Pulse: Tachycardic Appearance: Positive for: Uncomfortable Pain Distress: Moderate Mental Status: Positive for: Alert and Oriented X 3 - Systems Exam Head: Present: Atraumatic Extroacular Muscles: Present: EOMI Conjunctiva: Present: Other (pale) Mouth: Present: Dry Pharnyx: No: ERYTHEMA Nose (Internal): Present: Normal Inspection Neck: Present: Normal Range of Motion. No: Meningeal Signs Respiratory/Chest: Present: Clear to Auscultation. No: Respiratory Distress Cardiovascular: Present: Tachycardic Abdomen: Present: Tenderness, Other (ileostomy site is intact with no erythema, g-tube site is intact with no erythema). No: Distention, Normal Bowel Sounds, Peritoneal Signs Rectal: No: Gross Blood Back: Present: CVA Tenderness, Other (right nephrostomy tube site is clean and intact). No: Midline Tenderness Upper Extremity: Present: Other (left PICC line site is intact with no erythema) . No: Cyanosis, Edema Lower Extremity: Present: Neurovascularly Intact. No: Edema Neurological: Present: Motor Func Grossly Intact, Normal Sensory Function Skin: Present: Pale Psychiatric: Present: Alert, Normal Insight, Normal Concentration Medical Decision Making ED Course and Treatment: 01/08/18 08:13 Patient on current exam is hypotensive and tachycardic. Past discharge summary reviewed, patient has palpable left sided pain. Will obtain ct abdomen/pelvis, obtain septic workup. IV fluid bolus ordered and iv pain medication will be ordered pending repeat blood pressure measurement. Blood pressure improved after iv fluid bolus, tachycardia persistent but improved. Pain is left sided, severe, but he states "i've had this before". CT results reviewed, no free air or obstruction. Significant leukocytosis noted with elevated WBC. CODE SEPSIS CALLED. Broad spectrum iv antibiotics ordered. Patient with multiple indwelling tubes/lines, high risk for sepsis. Will admit to ICU as cr elevated, concern for septic shock. Pain persistent but improved. Case d/w PMD Dr. Wagner, and patient accepted to ICU by Dr. Cevallos. - Critical Care Critical Care Minutes: 30 minutes - Lab Interpretations Microbiology Results: Microbiology Results 01/08/18 08:50 Blood Blood Culture - Preliminary Gram Negative Jasbir 01/08/18 08:50 Blood Gram Stain - Final 01/08/18 08:20 Blood Blood Culture - Preliminary Gram Negative Jasbir 01/08/18 08:20 Blood Gram Stain - Final Lab Results: 01/08/18 08:50 01/08/18 08:50 Lab Results 01/08/18 08:50: Blood Type O POSITIVE, Antibody Screen Negative, Crossmatch See Detail, BBK History Checked Patient has bt 01/08/18 08:50: Sodium 141, Chloride 105, Potassium 4.7, Carbon Dioxide 16 L, Anion Gap 24 H, BUN 83 H, Creatinine 2.6 H, Est GFR ( Amer) 31, Est GFR ( Non-Af Amer) 25, Random Glucose 187 H, Calcium 9.7, Phosphorus 5.8 H, Magnesium 2.1, Total Bilirubin 5.2 H, AST 91 H, ALT 86 H, Alkaline Phosphatase 455 H, Lactate Dehydrogenase 465, Total Creatine Kinase 31 L, Troponin I 0.05 D, Total Protein 7.9, Albumin 3.7, Globulin 4.3, Albumin/Globulin Ratio 0.9 L 01/08/18 08:50: PT 14.3 H, INR 1.24 H, APTT 38.3 H 01/08/18 08:50: WBC 29.1 H* D, RBC 3.69, Hgb 11.2 L D, Hct 33.9 L, MCV 91.9 D, MCH 30.4, MCHC 33.0, RDW 16.3 H, Plt Count 194, MPV 14.0 H, Gran % 94.4 H, Lymph % (Auto) 2.0 L, Cobb % (Auto) 3.6, Eos % (Auto) 0.0 L, Baso % (Auto) 0.0, Gran # 27.44 H, Lymph # (Auto) 0.6 L, Cobb # (Auto) 1.1 H, Eos # (Auto) 0.0, Baso # (Auto) 0.01, Neutrophils % (Manual) 94 H, Band Neutrophils % 3 H, Lymphocytes % (Manual) 2 L, Monocytes % (Manual) 1, Platelet Evaluation Normal 01/08/18 08:37: POC Glucose (mg/dL) 167 H 01/08/18 08:20: pO2 197 H, VBG pH 7.29 L, VBG pCO2 35.0 L, VBG HCO3 16.8 L, VBG Total CO2 17.9 L, VBG O2 Sat (Calc) 100.5 H, VBG Base Excess -8.9 L, VBG Potassium 4.5, Sodium 133.0, Chloride 101.0, Glucose 188 H, Lactate 5.9 H*, FiO2 21.0, Venous Blood Potassium 4.5 - RAD Interpretation Narrative RAD Interpretations (Text): 01/08/2018 08:49:39 Chest X-ray FINDINGS: LUNGS: The left-sided PICC line terminates in the inferior aspect of the right atrium. This line could be pulled back 8 cm to position at at the caval atrial junction. The lungs are clear PLEURA: No significant pleural effusion identified, no pneumothorax apparent. CARDIOVASCULAR: Normal. OSSEOUS STRUCTURES: No significant abnormalities. VISUALIZED UPPER ABDOMEN: Normal. OTHER FINDINGS: None. IMPRESSION: No active disease. The left-sided PICC line terminates in the inferior aspect of the right atrium. This line could be pulled back 8 cm to position it at the caval atrial junction. 01/08/2018 10:25:00 PROCEDURE: CT Abdomen and Pelvis without intravenous contrast FINDINGS: LOWER THORAX: Unremarkable. LIVER: Unremarkable. No gross lesion or ductal dilatation. GALLBLADDER AND BILE DUCTS: Gallbladder removed. Air in the biliary tree PANCREAS: Unremarkable. No gross lesion or ductal dilatation. SPLEEN: Removed ADRENALS: Unremarkable. No mass. KIDNEYS AND URETERS: There is a right-sided nephrostomy catheter in the renal pelvis. The left kidney is unremarkable. VASCULATURE: Unremarkable. No aortic aneurysm. BOWEL: There is a gastrostomy tube in the stomach. There is a midline ostomy. The colon has been resected. The small bowel is difficult to evaluate due to lack of oral contrast. PERITONEUM: Unremarkable. No free fluid. No free air. LYMPH NODES: Unremarkable. No enlarged lymph nodes. BLADDER: Unremarkable. REPRODUCTIVE: Unremarkable. BONES: No acute fracture. OTHER FINDINGS: None. IMPRESSION: No acute intra-abdominal findings. Radiology Orders: 01/08/18 08:04 ABD & PELVIS W/O PO OR IV CONT [CT] Stat CHEST PORTABLE [RAD] Stat Registrar Assistant: Radiologist - EKG Interpretation Interpreted by ED Physician: Yes Type: 12 lead EKG - Medication Orders Current Medication Orders: Acetaminophen (Tylenol 325mg Tab) 650 mg PO Q6H PRN PRN Reason: FEVER>=99.5F Acetaminophen (Tylenol 650 Mg Supp) 650 mg RC Q6H PRN PRN Reason: TEMP>=99.5F Amitriptyline HCl (Elavil) 25 mg PO HS TAMMY Last Admin: 01/08/18 22:34 Dose: 25 mg Gabapentin (Neurontin) 400 mg PO TID TAMMY PRN Reason: Protocol Last Admin: 01/09/18 09:01 Dose: 400 mg Behavioural Document 01/09/18 09:01 LC (Rec: 01/09/18 09:01 [id number]) Maintenance Maintenance Dose Yes Re-Assess: Reassess Psych Meds Document 01/09/18 10:01 LC (Rec: 01/09/18 12:22 [id number]) Reassess Psych Med Effective Heparin Sodium (Porcine) (Heparin) 5,000 units SC Q8 TAMMY PRN Reason: Protocol Last Admin: 01/09/18 05:48 Dose: 5,000 units Subcutaneous Administrations Document 01/09/18 05:48 [facility] (Rec: 01/09/18 05:49 [id number] Charges for Administration # of Subcutaneous Administrations 1 Hydromorphone HCl (Dilaudid) 2 mg IVP Q4H PRN PRN Reason: Pain, moderate (4-7) Last Admin: 01/09/18 12:19 Dose: 2 mg MAR Pain Assessment Document 01/09/18 12:19 (Rec: 01/09/18 12:20 [id number]) Pain Reassessment Is this a pain reassessment? No IVP Administration Document 01/09/18 12:19 (Rec: 01/09/18 12:20 [id number]) Charges for Administration # of IVP Administrations 1 Sodium Chloride (Sodium Chloride 0.9%) 1,000 mls @ 150 mls/hr IV .Q6H40M [facility] Last Admin: 01/09/18 08:58 Dose: 150 mls/hr eMAR Start Stop Document 01/09/18 08:58 LC (Rec: 01/09/18 08:59 [id number]) Intravenous Solution Start Date 01/09/18 Start Time 03:00 Meropenem 500 mg/ Sodium (Chloride) 50 mls @ 100 mls/hr IVPB 0200,1000,1800 [facility] PRN Reason: Protocol Stop: 01/13/18 18:01 Last Admin: 01/09/18 09:02 Dose: 100 mls/hr eMAR Start Stop Document 01/09/18 09:02 (Rec: 01/09/18 09:02 [id number]) Intravenous Solution Start Date 01/09/18 Start Time 09:02 Midodrine (Proamatine) 2.5 mg PO TID [facility] Last Admin: 01/09/18 09:01 Dose: 2.5 mg Ondansetron HCl (Zofran Inj) 4 mg IVP Q4H PRN PRN Reason: Nausea/Vomiting Last Admin: 01/09/18 12:21 Dose: 4 mg IVP Administration Document 01/09/18 12:21 LC (Rec: 01/09/18 12:21 [id number] Charges for Administration # of IVP Administrations 1 Pantoprazole Sodium (Protonix Inj) 40 mg IVP DAILY [facility] Last Admin: 01/09/18 09:01 Dose: 40 mg IVP Administration Document 01/09/18 09:01 LC (Rec: 01/09/18 09:01 LC [id number] Charges for Administration # of IVP Administrations 1 Sodium Bicarbonate (Sodium Bicarbonate Tab) 650 mg PO BID [facility] Last Admin: 01/09/18 12:22 Dose: 650 mg Discontinued Medications Amitriptyline HCl (Elavil) 25 mg PO [facility] Hydromorphone HCl (Dilaudid) 1 mg IVP STAT STA Stop: 01/08/18 08:56 Last Admin: 01/08/18 08:55 Dose: 1 mg MAR Pain Assessment Document 01/08/18 08:55 SRE (Rec: 01/08/18 10:15 SRE [id number]) Pain Reassessment Is this a pain reassessment? Yes Sleep Is patient sleeping during reassessment? No Presence of Pain Presence of Pain Yes Pain Scale Used Pain Scale Used Numeric Location Pain Location Body Site Abdomen Description Description Constant IVP Administration Document 01/08/18 08:55 SRE (Rec: 01/08/18 10:15 SRE [id number]) Charges for Administration # of IVP Administrations 1 Re-Assess: MAR Pain Assessment Document 01/08/18 09:55 LC (Rec: 01/09/18 07:21 LC [id number]) Pain Reassessment Is this a pain reassessment? Yes Sleep Is patient sleeping during reassessment? Yes Hydromorphone HCl (Dilaudid) 1 mg IVP STAT STA Stop: 01/08/18 10:09 Last Admin: 01/08/18 10:15 Dose: 1 mg MAR Pain Assessment Document 01/08/18 10:15 SRE (Rec: 01/08/18 10:16 SRE [id number]) Pain Reassessment Is this a pain reassessment? Yes Sleep Is patient sleeping during reassessment? No Presence of Pain Presence of Pain Yes Pain Scale Used Pain Scale Used Numeric Location Pain Location Body Site Abdomen Description Description Constant IVP Administration Document 01/08/18 10:15 SRE (Rec: 01/08/18 10:16 SRE [id number]) Charges for Administration # of IVP Administrations 1 Re-Assess: [facility] Pain Assessment Document 01/08/18 11:15 LC (Rec: 01/09/18 07:21 LC [id number]) Pain Reassessment Is this a pain reassessment? Yes Sleep Is patient sleeping during reassessment? Yes Hydromorphone HCl (Dilaudid) 1 mg IVP Q3H PRN PRN Reason: Pain, severe (8-10) Last Admin: 01/08/18 16:23 Dose: 1 mg [facility] Pain Assessment Document 01/08/18 16:23 FM (Rec: 01/08/18 16:25 FM [id number]) Pain Reassessment Is this a pain reassessment? No Sleep Is patient sleeping during reassessment? No Presence of Pain Presence of Pain Yes Pain Scale Used Pain Scale Used Numeric Location Pain Location Body Site Abdomen Description Description Constant Intensity of Pain at present 8 Pain Behavior Moaning Irritability Alleviating Factors/Management Medication Techniques Alleviating Factors Medication IVP Administration Document 01/08/18 16:23 FM (Rec: 01/08/18 16:25 FM [id number]) Charges for Administration # of IVP Administrations 1 Re-Assess: [facility] Pain Assessment Edit Result 01/08/18 17:23 FM (Rec: 01/08/18 17:28 FM [id number]) Pain Reassessment Is this a pain reassessment? Yes Sleep Is patient sleeping during reassessment? No Presence of Pain Presence of Pain No Sodium Chloride (Sodium Chloride 0.9%) 1,000 mls @ 1,000 mls/hr IV .Q1H STA Stop: 01/08/18 09:05 Last Admin: 01/08/18 09:08 Dose: 1,000 mls/hr eMAR Start Stop Document 01/08/18 09:08 SRE (Rec: 01/08/18 09:12 SRE [id number]) Intravenous Solution Start Date 01/08/18 Start Time 08:00 End Date 01/08/18 End time 09:00 Total Infusion Time 60 Piperacillin Sod/Tazobactam Sod (Zosyn 3.375 In Ns 100ml) 100 mls @ 200 mls/hr IVPB STAT STA PRN Reason: Protocol Stop: 01/08/18 09:24 Last Admin: 01/08/18 09:30 Dose: Vancomycin HCl (Vancomycin 1gm) 1 gm in 250 mls @ 167 mls/hr IVPB STAT STA PRN Reason: Protocol Stop: 01/08/18 10:25 Last Admin: 01/08/18 11:00 Dose: 167 mls/hr eMAR Start Stop Document 01/08/18 11:00 SRE (Rec: 01/08/18 11:27 SRE [id number]) Intravenous Solution Start Date 01/08/18 Start Time 11:00 End Date 01/08/18 End time 12:30 Total Infusion Time 90 Lactated Ringer's 1,700 ml/ IV (SUPPLIES) 1,700 mls @ 3,401.94 mls/hr IV ONCE ONE PRN Reason: 60 ML/KG/HR Stop: 01/08/18 08:57 Last Admin: 01/08/18 10:11 Dose: 3,401.94 mls/hr eMAR Start Stop Document 01/08/18 10:11 SRE (Rec: 01/08/18 10:12 SRE [id number]) Intravenous Solution Start Date 01/08/18 Start Time 09:00 End Date 01/08/18 End time 10:45 Total Infusion Time 105 Meropenem 500 mg/ Sodium (Chloride) 50 mls @ 100 mls/hr IVPB Q12 TAMMY PRN Reason: Protocol Stop: 01/08/18 11:59 Last Admin: 01/08/18 13:00 Dose: 100 mls/hr eMAR Start Stop Document 01/08/18 13:00 (Rec: 01/08/18 13:00 [id number]) Intravenous Solution Start Date 01/08/18 Start Time 13:00 End Date 01/08/18 End time 13:30 Total Infusion Time 30 Oxycodone HCl (Oxycontin Extended Release Tab) 20 mg PO Q12 [facility] Disposition/Present on Arrival - Present on Arrival Any Indicators Present on Arrival: No History of DVT/PE: No History of Uncontrolled Diabetes: No Urinary Catheter: No History of Decub. Ulcer: No History Surgical Site Infection Following: None - Disposition Have Diagnosis and Disposition been Completed?: Yes Diagnosis: Sepsis, Leukocytosis, Acute kidney injury, Dehydration Disposition: HOSPITALIZED Disposition Time: 10:00 Patient Plan: Admission, ICU Patient Problems: Current Active Problems Problem Status Onset Leukocytosis Acute Sepsis Acute Condition: CRITICAL
[2018-01-08 08:48] LABS: VENOUS BLOOD GAS BASE EXCESS -8.9 mmol/L (0.0-2.0); VENOUS BLOOD GAS PO2 197 mm/Hg (30-55); VENOUS BLOOD PH 7.29 (7.32-7.43)
--- NOTE | 2018-01-08 08:51 | RAD ---
HISTORY: near syncope COMPARISON: No prior. FINDINGS: LUNGS: The left-sided PICC line terminates in the inferior aspect of the right atrium. This line could be pulled back 8 cm to position at at the caval atrial junction. The lungs are clear PLEURA: No significant pleural effusion identified, no pneumothorax apparent. CARDIOVASCULAR: Normal. OSSEOUS STRUCTURES: No significant abnormalities. VISUALIZED UPPER ABDOMEN: Normal. OTHER FINDINGS: None. IMPRESSION: No active disease. The left-sided PICC line terminates in the inferior aspect of the right atrium. This line could be pulled back 8 cm to position it at the caval atrial junction.
[2018-01-08] MEDS ORDERED: HYDROmorphone 1 mg/ml ISec IVP STA ×2 (08:55→10:08)
[2018-01-08] MEDS: Piperacillin/Tazobact 3.375 gm 100 ML IVPB STA ×2 (09:07→09:30)
[2018-01-08 09:17] LABS: BASO # 0.01 K/mm3 (0.0-2.0); GRAN # 27.44 (1.4-6.5); GRAN % 94.4 % (50.0-68.0); HEMOGLOBIN 11.2 g/dL (14.0-18.0); LYMPH # 0.6 (1.2-3.4); MEAN CELL VOLUME 91.9 fl (80.0-105.0); MEAN CORPUSCULAR HEMOGLOBIN 30.4 pg (25.0-35.0); MONO # 1.1 (0.1-0.6); MONO % 3.6 % (1.0-6.0); PLATELET COUNT 194 10^3/uL (120.0-450.0); RBC 3.69 10^6/uL (3.5-6.1); RED CELL DISTRIBUTION WIDTH 16.3 % (11.5-14.5)
[2018-01-08 09:21] LABS: WHITE BLOOD COUNT 29.1 10^3/ul (4.5-11.0)
[2018-01-08 09:28] LABS: INR 1.24 (0.93-1.08); PARTIAL THROMBOPLASTIN TIME 38.3 Seconds (25.1-36.5); PROTHROMBIN TIME 14.3 SECONDS (9.4-12.5)
[2018-01-08 09:30] LABS: BAND 3 % (0-2); LYMPHOCYTE 2 % (22.0-35.0); MONOCYTE 1 % (1.0-6.0); NEUTROPHIL 94 % (50.0-70.0); PLATELET ESTIMATE NORMAL (NORMAL)
[2018-01-08 09:32] LABS: ALB/GLOB RATIO 0.9 (1.1-1.8); ALBUMIN 3.7 g/dL (3.0-4.8); CALCIUM 9.7 mg/dL (8.4-10.5)
[2018-01-08 09:39] LABS: TROPONIN I 0.05 ng/mL
[2018-01-08] MEDS ORDERED: Piperacillin/Tazobact 2.25gm 2.25 GM/100 ML BAG IVPB STA (10:11)
[2018-01-08] MEDS: Vancomycin 1gm in NS 250ml 1 GM/250 ML BAG IVPB STA ×2 (10:12→11:00)
--- NOTE | 2018-01-08 10:26 | CT ---
PROCEDURE: CT Abdomen and Pelvis without intravenous contrast HISTORY: severe abdominal/left flank pain COMPARISON: CT 11/27/2017 TECHNIQUE: Without contrast. Contrast Dose: Radiation dose: Total exam DLP = Total exam DLP = 232 mGy-cm. This CT exam was performed using one or more of the following dose reduction techniques: Automated exposure control, adjustment of the mA and/or kV according to patient size, and/or use of iterative reconstruction technique. FINDINGS: LOWER THORAX: Unremarkable. LIVER: Unremarkable. No gross lesion or ductal dilatation. GALLBLADDER AND BILE DUCTS: Gallbladder removed. Air in the biliary tree PANCREAS: Unremarkable. No gross lesion or ductal dilatation. SPLEEN: Removed ADRENALS: Unremarkable. No mass. KIDNEYS AND URETERS: There is a right-sided nephrostomy catheter in the renal pelvis. The left kidney is unremarkable. VASCULATURE: Unremarkable. No aortic aneurysm. BOWEL: There is a gastrostomy tube in the stomach. There is a midline ostomy. The colon has been resected. The small bowel is difficult to evaluate due to lack of oral contrast. PERITONEUM: Unremarkable. No free fluid. No free air. LYMPH NODES: Unremarkable. No enlarged lymph nodes. BLADDER: Unremarkable. REPRODUCTIVE: Unremarkable. BONES: No acute fracture. OTHER FINDINGS: None. IMPRESSION: No acute intra-abdominal findings.
--- NOTE | 2018-01-08 10:50 | CP.PCM.CON ---
<Rell Gonzales - Last Filed: 01/08/18 11:33> History of Present Illness - History of Present Illness History of Present Illness: ICU consult Note: 62 year old male with PMHx of carcinoid tumor diagnosed 4 years ago s/p colectomy, ileostomy, right sided nephrostomy tube, recently discharged from the hospital for sepsis from pyelonephritis/cystitis, PEG tube with chronic bowel obstruction and PICC line on TPN, now presents to the hospital for near syncope. Patient states that for the past fews days he has been getting progressively worse L sided back and abdominal pain. Patient states that the pain is constant and 10/10 in severity. Patient states that he went to use the bathroom this morning and felt very dizzy and lightheaded. Patient states that he fell backwards but denies hitting his head or neck. Patient also complains of bloody drainage from nephrostomy bag. No other complaints. 12 Point ROS performed and neg other than stated above. PMH: carcinoid CA of GI tract, renal insufficiency Surg: Colectomy with ileostomy, nephrostomy (right), PEG tube, PICC line placement 1 month ago All: Morphine (rash) FHx: Non-contributory SH: Denied tobacco, ETOH, and illicit drug use Review of Systems - Review of Systems All systems: reviewed and no additional remarkable complaints except (HPI) Past Patient History - Infectious Disease Hx of Infectious Diseases: None - Tetanus Immunizations Tetanus Immunization: Unknown - Past Social History Smoking Status: Former Smoker - CARDIAC Hx Cardiac Disorders: No - PULMONARY Hx Respiratory Disorders: No - NEUROLOGICAL Hx Neurological Disorder: No - HEENT Hx HEENT Problems: No - RENAL Hx Chronic Kidney Disease: Yes Other/Comment: HAS UROSTOMY - ENDOCRINE/METABOLIC Hx Endocrine Disorders: No - HEMATOLOGICAL/ONCOLOGICAL Hx Cancer: (Gastric; colon) - INTEGUMENTARY Hx Dermatological Problems: No - MUSCULOSKELETAL/RHEUMATOLOGICAL Hx Falls: No - GASTROINTESTINAL Hx Gastrointestinal Disorders: Yes Other/Comment: L colostomy. G tube - GENITOURINARY/GYNECOLOGICAL Hx Reproductive Disorders: No - PSYCHIATRIC Hx Psychophysiologic Disorder: No Hx Substance Use: No - SURGICAL HISTORY Other/Comment: COLOSTOMY, PEG TUBE, UROSTOMY - ANESTHESIA Hx Anesthesia Reactions: No Hx Malignant Hyperthermia: No Meds Allergies/Adverse Reactions: Allergies Allergy/AdvReac Type Severity Reaction Status Date / Time morphine Allergy ANAPHYLAXIS Verified 12/08/17 19:18 - Medications Medications: Current Medications Piperacillin Sod/Tazobactam Sod (Zosyn 2.25 Gm In 0.9% 100 Ml) 2.25 gm in 100 mls @ 100 mls/hr IVPB STAT STA PRN Reason: Protocol Stop: 01/08/18 11:10 Physical Exam - Constitutional Appears: No Acute Distress - Head Exam Head Exam: ATRAUMATIC, NORMOCEPHALIC - Eye Exam Eye Exam: EOMI, PERRL - ENT Exam ENT Exam: Mucous Membranes Moist - Respiratory Exam Respiratory Exam: Clear to Auscultation Bilateral. absent: Rales, Rhonchi, Wheezes - Cardiovascular Exam Cardiovascular Exam: REGULAR RHYTHM, +S1, +S2 - GI/Abdominal Exam GI & Abdominal Exam: Normal Bowel Sounds, Soft. absent: Distended, Tenderness Additional comments: nephrostomy (right), PEG tube - Extremities Exam Extremities exam: Negative for: calf tenderness, pedal edema - Neurological Exam Neurological exam: Alert, CN II-XII Intact, Oriented x3 - Psychiatric Exam Psychiatric exam: Normal Affect, Normal Mood - Skin Skin Exam: Dry, Intact, Warm Results - Vital Signs Recent Vital Signs: Last Vital Signs Temp 97.9 F 01/08/18 07:44 Pulse 12 L 01/08/18 10:23 Resp 20 01/08/18 10:23 BP 128/72 01/08/18 10:23 Pulse Ox 98 01/08/18 10:23 - Labs Result Diagrams: 01/08/18 08:50 01/08/18 08:50 Labs: Laboratory Results - last 24 hr 01/08/18 01/08/18 01/08/18 08:20 08:37 08:50 WBC 29.1 H* D RBC 3.69 Hgb 11.2 L D Hct 33.9 L MCV 91.9 D MCH 30.4 MCHC 33.0 RDW 16.3 H Plt Count 194 MPV 14.0 H Gran % 94.4 H Lymph % (Auto) 2.0 L [place] % (Auto) 3.6 Eos % (Auto) 0.0 L Baso % (Auto) 0.0 Gran # 27.44 H Lymph # (Auto) 0.6 L [place] # (Auto) 1.1 H Eos # (Auto) 0.0 Baso # (Auto) 0.01 Neutrophils % (Manual) 94 H Band Neutrophils % 3 H Lymphocytes % (Manual) 2 L Monocytes % (Manual) 1 Platelet Evaluation Normal PT INR APTT pO2 197 H VBG pH 7.29 L VBG pCO2 35.0 L VBG HCO3 16.8 L VBG Total CO2 17.9 L VBG O2 Sat (Calc) 100.5 H VBG Base Excess -8.9 L VBG Potassium 4.5 Sodium 133.0 Chloride 101.0 Glucose 188 H Lactate 5.9 H* FiO2 21.0 Potassium Carbon Dioxide Anion Gap BUN Creatinine Est GFR ( Amer) Est GFR (Non-Af Amer) POC Glucose (mg/dL) 167 H Random Glucose Calcium Phosphorus Magnesium Total Bilirubin AST ALT Alkaline Phosphatase Lactate Dehydrogenase Total Creatine Kinase Troponin I Total Protein Albumin Globulin Albumin/Globulin Ratio Venous Blood Potassium 4.5 Blood Type Antibody Screen BBK History Checked 01/08/18 01/08/18 01/08/18 08:50 08:50 08:50 WBC RBC Hgb Hct MCV MCH MCHC RDW Plt Count MPV Gran % Lymph % (Auto) [place] % (Auto) Eos % (Auto) Baso % (Auto) Gran # Lymph # (Auto) [place] # (Auto) Eos # (Auto) Baso # (Auto) Neutrophils % (Manual) Band Neutrophils % Lymphocytes % (Manual) Monocytes % (Manual) Platelet Evaluation PT 14.3 H INR 1.24 H APTT 38.3 H pO2 VBG pH VBG pCO2 VBG HCO3 VBG Total CO2 VBG O2 Sat (Calc) VBG Base Excess VBG Potassium Sodium 141 Chloride 105 Glucose Lactate FiO2 Potassium 4.7 Carbon Dioxide 16 L Anion Gap 24 H BUN 83 H Creatinine 2.6 H Est GFR ( Amer) 31 Est GFR (Non-Af Amer) 25 POC Glucose (mg/dL) Random Glucose 187 H Calcium 9.7 Phosphorus 5.8 H Magnesium 2.1 Total Bilirubin 5.2 H AST 91 H ALT 86 H Alkaline Phosphatase 455 H Lactate Dehydrogenase 465 Total Creatine Kinase 31 L Troponin I 0.05 D Total Protein 7.9 Albumin 3.7 Globulin 4.3 Albumin/Globulin Ratio 0.9 L Venous Blood Potassium Blood Type O POSITIVE Antibody Screen Negative BBK History Checked Patient has bt Assessment & Plan - Assessment and Plan (Free Text) Assessment: 62 year old male with PMHx of carcinoid tumor diagnosed 4 years ago s/p colectomy, ileostomy, right sided nephrostomy tube, recently discharged from the hospital for sepsis from pyelonephritis/cystitis, PEG tube with chronic bowel obstruction and PICC line on TPN, now presents to the hospital for near syncope. Found to have sepsis with BP 96/52, HR 114, and Lactate 5.9. Neuro: - AAO x 3 - Pain control - Stable Pulm: - maintain SPO2 > 90 % - 2L NC as needed CV: - maintain MAP > 65 - 1 L bolus NS x 1, and LR 1.7 L bolus in the ED - NS @ 150 currently - Echo - EF of 56 % GI: - Protonix for ppx - Elevated LFTs - Cont to trend - CT abd&pelvis shows no acute intra abdominal finding Renal: - PRANAV 2.6 - baseline 1 - Urology consulted for recs - Replete electrolytes as tolerated - Avoid nephrotoxic drugs ID: - Afebrile, BP 96/52, HR 114, wbc 29.1, and Lactate 5.9 - Vanc and Zosyn x 1 in the ED - Started Tom and Vanc - ID consulted for recs Endo: - Maintain blood glucose 140-180 Heme: - Monitor H/H Case and plan was reviewed and discussed with Dr Cevallos. <Mike Cevallos - Last Filed: 01/08/18 14:19> Meds - Medications Medications: Current Medications Heparin Sodium (Porcine) (Heparin) 5,000 units SC Q8 TAMMY PRN Reason: Protocol Last Admin: 01/08/18 13:12 Dose: 5,000 units Hydromorphone HCl (Dilaudid) 1 mg IVP Q3H PRN PRN Reason: Pain, severe (8-10) Last Admin: 01/08/18 12:55 Dose: 1 mg Sodium Chloride (Sodium Chloride 0.9%) 1,000 mls @ 150 mls/hr IV .Q6H40M [facility] Last Admin: 01/08/18 11:24 Dose: 150 mls/hr Meropenem 500 mg/ Sodium (Chloride) 50 mls @ 100 mls/hr IVPB Q8 TAMMY PRN Reason: Protocol Stop: 01/08/18 22:29 Pantoprazole Sodium (Protonix Inj) 40 mg IVP DAILY [facility] Last Admin: 01/08/18 12:57 Dose: 40 mg Results - Vital Signs Recent Vital Signs: Last Vital Signs Temp 97.9 F 01/08/18 11:46 Pulse 114 H 01/08/18 12:20 Resp 20 01/08/18 12:20 BP 130/78 01/08/18 12:00 Pulse Ox 97 01/08/18 12:20 - Labs Result Diagrams: 01/08/18 08:50 01/08/18 08:50 Labs: Laboratory Results - last 24 hr 01/08/18 11:43 pO2 53 VBG pH 7.19 L* VBG pCO2 46.0 VBG HCO3 17.6 L VBG Total CO2 19.0 L VBG O2 Sat (Calc) 88.5 H VBG Base Excess -10.4 L VBG Potassium 4.1 Sodium 136.0 Chloride 103.0 Glucose 167 H Lactate 6.1 H* FiO2 21.0 Venous Blood Potassium 4.1 Assessment & Plan - Assessment and Plan (Free Text) Assessment: Patient seen and examined with resident, agree with note with following additions/exceptions: Patient is 62 year old male with PMHx of carcinoid tumor diagnosed 4 years ago s /p colectomy, ileostomy, right sided nephrostomy tube, recently discharged from the hospital for sepsis from pyelonephritis/cystitis, PEG tube with chronic bowel obstruction and PICC line on TPN, presents with dizziness, syncope, and severe sepsis of unclear source. Currently afebrile, HD stable, complaining of abd pain. CT A/P done with no acute new intrabdominal pathology noted. Severe Sepsis PRANAV Dehydration Lactic Acidosis Recommend: - supp o2 as needed - duonebs PRN - Hold BP meds - IVF hydration, repeat Lactate - broad spectrum abx, Merrem, Vanco, renally dosed - follow up cultures, Procal, Ucx, BCx - Urology consult - ID consult - ECHO - DC PICC line - FS control - GI ppx - DVT ppx - Monitor in ICU Critical care time 35 minutes
[2018-01-08] MEDS: Sodium Chloride 0.9% 1,000 ML IV SCH ×2 (11:24→18:56)
--- NOTE | 2018-01-08 11:24 | PCM.URO ---
Urology Progress Note - Objective Lab Studies: Reviewed (gu plans : to follow // will review chart) Vital Signs: Vital Signs - 24 hr 01/08/18 10:23 Pulse Rate 12 L Respiratory 20 Rate Blood Pressure 128/72 O2 Sat by Pulse 98 Oximetry
[2018-01-08] MEDS ORDERED: Meropenem 500 MG in Sodium Chloride 0.9% 50 ML IVPB SCH ×2 (11:30→14:00)
[2018-01-08 11:48] LABS: VENOUS BLOOD GAS BASE EXCESS -10.4 mmol/L (0.0-2.0); VENOUS BLOOD GAS PO2 53 mm/Hg (30-55)
[2018-01-08 11:50] LABS: VENOUS BLOOD PH 7.19 (7.32-7.43)
[2018-01-08 11:56] VITALS: BMI 18.4
[2018-01-08] MEDS: HYDROmorphone 1 mg/ml ISec IVP PRN ×2 (12:55→16:23)
--- NOTE | 2018-01-08 15:09 | CARD ---
APPROVED REPORT EKG Measurement Heart [id number] <Conclusion> Sinus tachycardia Otherwise normal ECG
--- NOTE | 2018-01-08 17:09 | CP.PCM.CON ---
History of Present Illness - History of Present Illness History of Present Illness: Nephrology Consultation Note: Assessment: critical PRANAV likely pre-renal state and hemoconcentration with sepsis lactic acidosis with HAGMA Hematuria Hyperbili with abnormal LFT Anemia carcinoma of GI tract S/P colectomy and ileostomy, S/P Rt nephrostomy tube placement 2 years ago and change 1 month ago, history of G-tube placement Plan No acute need for renal replacement therapy at this time. Maintain hemodynamics stable. avoid hypotension. Patient not on ACEI/ARB due to PRANAV and low BP Monitor Input/Output, daily weights and renal function with basic metabolic panel supplements electrolytes as needed continue with IVF as normal saline. may give Bolus as needed ID, GI and urology involved Dose meds/antibiotics for reduced GFR. Avoid nephrotoxins/NSAIDs/IV iodinated contrast (unless needed emergently). avoid fleet enema/Mag based laxative. Glycemic control Further work up/management as per primary team Thanks for allowing me to participate in care of your patient. Will follow with you. Please call if any Qs. d/w and team Dr Eric Oseguera Office: [phone] Reason for consult: PRANAV CC; abdomen pain HPI: Pt is a 62 M with hx of carcinoma of GI tract S/P colectomy and ileostomy, S/P Rt nephrostomy tube placement 2 years ago, history of G-tube placement, on TPN at home presented with c/o bloody urine output from the nephrostomy tube and also worsening abdomen pain for last few days. overall symptoms worsening. renal consult for PRANAV. pt with lactic acidosis and hyperbilir as well. Denies OTC/herbal meds or NSAIDs No recent iodinated contrast exposure. Noted episode of low BP (96/52). ROS: Cardiovascular: No chest pain. Pulmonary: No shortness of breath Gastrointestinal: c/o abdominal pain c/o nausea. No vomiting. Genitourinary: No pain while urinating. c/o blood in urine. All other negative except as in HPI Physical Examination: General Appearance: uncomfortable, in no acute respiratory distress, co- operative . ill appearing Vitals reviewed and noted as below Head; Atraumatic, normocephalic ENT: no ulcers no thrush. Tongue is midline/coated. Oropharynx: no rash or ulcers. EYES: Pupils are equal, round and reactive to light accommodation. Eye muscles and extraocular movement intact. Sclera is anicteric. Neck; supple no lymphadenopathy, no thyromegaly or bruit Lungs: Normal respiratory rate/effort. Breath sounds bilateral equal and clear Heart: Increased rate. s1s2 normal. No rub or gallop. Extremities: no edema. No varicose veins Neurological: Patient is alert, awake and oriented to person, place and time. No focal deficit. Strength bilateral appropriate and equal Skin: Warm and dry. Normal turgor. No rash. Palpitation: Normal elasticity for age Abdomen: Abdomen is soft. Bowel sounds +. There is no abdominal tenderness, no guarding/rigidity no organomegaly. has iletostomy and G tube Psych: normal insight and normal affect/mood MSK: no joint tenderness or swelling. Digits and nails normal, no deformity : kidney or bladder not palpable. has Rt nephrostomy tube draining hemorrhagic urine Labs/imaging reviewed. Past medical history, past surgical history, family history, social history, allergy reviewed and noted as below Family hx: no hx of CKD. Rest non-contributory renal imaging WNL Past Patient History - Infectious Disease Hx of Infectious Diseases: None - Tetanus Immunizations Tetanus Immunization: Unknown - Past Social History Smoking Status: Never Smoked - CARDIAC Hx Cardiac Disorders: No - PULMONARY Hx Respiratory Disorders: No - NEUROLOGICAL Hx Neurological Disorder: No - HEENT Hx HEENT Problems: No - RENAL Hx Chronic Kidney Disease: Yes Other/Comment: HAS UROSTOMY - ENDOCRINE/METABOLIC Hx Endocrine Disorders: No - HEMATOLOGICAL/ONCOLOGICAL Hx Cancer: Yes (Gastric; colon) - INTEGUMENTARY Hx Dermatological Problems: No - MUSCULOSKELETAL/RHEUMATOLOGICAL Hx Falls: Yes - GASTROINTESTINAL Hx Gastrointestinal Disorders: Yes Hx Ileostomy: Yes Other/Comment: L colostomy. G tube - GENITOURINARY/GYNECOLOGICAL Hx Genitourinary Disorders: Yes Other/Comment: HAS UROSTOMY - PSYCHIATRIC Hx Psychophysiologic Disorder: No - SURGICAL HISTORY Hx Surgeries: Yes Other/Comment: COLOSTOMY, PEG TUBE, UROSTOMY - ANESTHESIA Hx Anesthesia Reactions: No Hx Malignant Hyperthermia: No Meds Allergies/Adverse Reactions: Allergies Allergy/AdvReac Type Severity Reaction Status Date / Time morphine Allergy ANAPHYLAXIS Verified 12/08/17 19:18 - Medications Medications: Current Medications Heparin Sodium (Porcine) (Heparin) 5,000 units SC Q8 TAMMY PRN Reason: Protocol Last Admin: 01/08/18 13:12 Dose: 5,000 units Hydromorphone HCl (Dilaudid) 1 mg IVP Q3H PRN PRN Reason: Pain, severe (8-10) Last Admin: 01/08/18 16:23 Dose: 1 mg Sodium Chloride (Sodium Chloride 0.9%) 1,000 mls @ 150 mls/hr IV .Q6H40M [facility] Last Admin: 01/08/18 11:24 Dose: 150 mls/hr Meropenem 500 mg/ Sodium (Chloride) 50 mls @ 100 mls/hr IVPB Q8 TAMMY PRN Reason: Protocol Stop: 01/08/18 22:29 Pantoprazole Sodium (Protonix Inj) 40 mg IVP DAILY [facility] Last Admin: 01/08/18 12:57 Dose: 40 mg Results - Vital Signs Recent Vital Signs: Last Vital Signs Temp 97.9 F 01/08/18 11:46 Pulse 114 H 01/08/18 14:00 Resp 20 01/08/18 12:20 BP 130/78 01/08/18 12:00 Pulse Ox 97 01/08/18 12:20 - Labs Result Diagrams: 01/08/18 08:50 01/08/18 08:50 Labs: Laboratory Results - last 24 hr 01/08/18 11:43 pO2 53 VBG pH 7.19 L* VBG pCO2 46.0 VBG HCO3 17.6 L VBG Total CO2 19.0 L VBG O2 Sat (Calc) 88.5 H VBG Base Excess -10.4 L VBG Potassium 4.1 Sodium 136.0 Chloride 103.0 Glucose 167 H Lactate 6.1 H* FiO2 21.0 Venous Blood Potassium 4.1
[2018-01-08] MEDS: Meropenem 500 MG in Sodium Chloride 0.9% 50 ML IVPB SCH (18:42)
[2018-01-08 18:56] LABS: URIC ACID 7.8 mg/dL (3.5-8.5)
[2018-01-08 19:04] LABS: VENOUS BLOOD GAS PO2 25 mm/Hg (30-55); VENOUS BLOOD PH 7.24 (7.32-7.43)
[2018-01-08 19:08] LABS: TROPONIN I 0.07 ng/mL
[2018-01-08] MEDS: HYDROmorphone 2 mg/ml ISec IVP PRN (21:28)
[2018-01-08 21:37] LABS: URINE APPEARANCE CLEAR (CLEAR); URINE BILIRUBIN NEGATIVE (NEGATIVE); URINE BLOOD LARGE (NEGATIVE); URINE GLUCOSE (UA) NEGATIVE (NEGATIVE); URINE LEUKOCYTE ESTERASE SMALL Leu/uL (NEGATIVE); URINE PROTEIN 30 mg/dL (<30 mg/dL); URINE UROBILINOGEN 0.2 E.U./dL (<1 E.U./dL)
[2018-01-08 21:38] LABS: URINE RBC 25 - 30 /hpf (0-2)
[2018-01-08] MEDS ORDERED: oxyCODONE 20 mg ER Tab (oxyCONTIN) PO SCH ×2 (22:00)
[2018-01-08 22:20] LABS: VENOUS BLOOD GAS PO2 35 mm/Hg (30-55); VENOUS BLOOD PH 7.31 (7.32-7.43)
[2018-01-08 23:01] LABS: TROPONIN I 0.06 ng/mL
[2018-01-09 01:40] LABS: VENOUS BLOOD GAS BASE EXCESS -4.1 mmol/L (0.0-2.0); VENOUS BLOOD GAS PO2 38 mm/Hg (30-55); VENOUS BLOOD PH 7.31 (7.32-7.43)
[2018-01-09 01:55] LABS: TROPONIN I 0.04 ng/mL
[2018-01-09] MEDS: Meropenem 500 MG in Sodium Chloride 0.9% 50 ML IVPB SCH ×3 (02:02→17:39)
[2018-01-09] MEDS: HYDROmorphone 2 mg/ml ISec IVP PRN ×5 (02:48→22:00)
[2018-01-09] MEDS: Sodium Chloride 0.9% 1,000 ML IV SCH ×5 (02:53→22:00)
--- NOTE | 2018-01-09 05:11 | HP ---
HISTORY OF PRESENT ILLNESS: Patient is a 62-year-old male who was recently admitted in 11/2017 under my service, was discharged by Dr. Nichols in December, presented to the emergency room today via the EMS ambulance. Patient stated that he fell walking to the bathroom, complained of increasing back pain. According to the ER physician evaluation note, patient presented to the emergency room, complaining of increasing left-sided back pain, abdominal pain of gradual onset, severe since last night and patient stated he went to the bathroom today; after clean himself, he got severely dizzy, lightheaded and fell backward and almost passed out. REVIEW OF SYSTEMS: A 13-system review was done, pertinent positives and negatives dictated above. CODE STATUS: Full code. LIVING WILL ADVANCE DIRECTIVE: None. ALLERGIES: MORPHINE. Height is 5 feet 9 inches. Weight is 125. BMI is 18.5. MEDICATIONS: Patient's home medications ProAmatine 2.5 mg three times a day, Neurontin 400 mg three times a day, Elavil 25 mg at bedtime, oxycodone immediate release 30 mg 4 times a day p.r.n., Zofran 4 mg p.r.n., Bactroban cream to the affected area, Imodium 2 mg p.r.n., Tylenol p.r.n. OCCUPATION HISTORY: Disabled. SOCIAL HISTORY: According to the [employer] info, he is negative for substance abuse, negative for alcohol abuse, negative for smoking, drug use. PAST MEDICAL HISTORY: Significant for gastrointestinal carcinoid tumor, history of left upper extremity PICC line placement, history of gastrostomy tube placement, history of chronic bowel obstruction, history of chronic narcotic-dependent pain syndrome, history of nephrostomy dysfunction, history of chronic home hyperalimentation, history of chronic kidney disease. Patient's past medical history is also significant for bandemia, leukocytosis, history of transesophageal echocardiogram and transthoracic echocardiogram done, which were negative for vegetation. Past medical history is also significant for history of left ventricle ejection fraction of 55%, history of mildly thickened mitral and aortic valve, history of trace tricuspid regurgitation. Patient's past medical history is significant for sepsis secondary to Staph coagulase negative bacteremia, history of cystitis, history of coagulase-negative Staphylococcus aureus bacteremia, recurrent bacteremia, history of funguria, history of anemia and anemia of chronic disease of malignancy, history of cachexia of malignancy, history of pain syndrome of malignancy, history of right-sided pyelonephritis associated with cystitis, history of cholecystectomy, history of splenectomy, history of cholelithiasis, history of chronic intestinal obstruction requiring gastrostomy tube decompression of the small bowel, history of sphincterotomy. Past medical history is significant for anemia, history of packed red blood cell transfusion, history of gram-positive cocci, history of neuropathy, history of transaminitis, hyperbilirubinemia, hypoalbuminemia, protein malnutrition, history of gait dysfunction, history of feeding dysfunction with chronic hyperalimentation dependent, history of hypokalemia, history of sepsis, history of bandemia, , a, history of right upper extremity phlebitis and cellulitis secondary to IV infiltration, history of poor compliance, history of right percutaneous nephrostomy tube change and revision, history of persistent high-grade fever, history of right-sided nonobstructing nephrolithiasis, history of hypotension, midodrine requiring; history of pyuria, history of pneumobilia secondary to sphincterotomy versus cholecystectomy, history of nonvisualized gallbladder, history of moderate right-sided hydroureter involving proximal and mid right ureter, history of nonvisualized right distal ureter, history of left renal duplicated collecting system, history of subtotal colectomy with rectosigmoid stump in the posterior pelvis, history of ileostomy of the left anterior pelvic wall, appendectomy, severe deconditioning, lymphocytopenia, status post right upper chest Port-A-Cath placement. Patient was recently discharged by Dr. Nichols on 12/17 for outpatient followup, but presented with above issues. Patient was in the emergency room. PHYSICAL EXAMINATION: VITAL SIGNS: T-max is 97.8, heart rate 114, 111, 112. Sinus tachycardia. Blood pressure 96/52, O2 sat 98% to 96%, respiratory rate 18-22. GENERAL: Patient is lying in the stretcher. Chronically ill appearing patient, in no distress, but sleepy. HEENT: Head examination, normocephalic, atraumatic. HEENT examination shows pinkish pale conjunctivae, icteric sclerae. No oropharyngeal lesion. NECK: No neck rigidity. CHEST: Positive right upper chest Port-A-Cath. Positive left upper extremity PICC line. Kyphosis. LUNGS: No rales, crackles or wheezing. CARDIOVASCULAR: S1, S2, regular rhythm. Questionable soft systolic murmur left sternal border, right second intercostal space. ABDOMEN: Shows positive surgical scar of colectomy, positive ileostomy, positive gastrostomy, positive right flank percutaneous nephrostomy noted. GENITALIA: Male. RECTAL: Deferred. EXTREMITIES: No pitting edema, no calf tenderness, no Homans' sign. MUSCULOSKELETAL: Shows a body mass index of 18.5. NEUROLOGIC: Patient is alert, awake, responsive, is able to move upper and lower extremity without assistance. Gait examination is not tested. VASCULAR: Palpable pulses. PSYCHIATRIC: Negative. DIAGNOSTICS: January 08, WBC 29.1, hemoglobin/hematocrit 11.2 and 33.9, platelets 194. Granulocytes 95% segs and 3% bands. PT/PTT 14.3 and 38.3. VBG shows pH of 7.29, lactate of 5.9. Repeat pH was 7.19, lactate of 6.1. Sodium 141, potassium 4.7, chloride 105, CO2 of 16, anion gap 24, BUN 83, creatinine 2.6, which is totally new. Patient's previous chemistry shows last BUN and creatinine from 12/12, BUN is 23, creatinine 0.8, which was normal, but today's BUN and creatinine shows BUN of 83, creatinine 2.6. GFR 31, glucose 167, random glucose 187, calcium 9.7, phosphorus 5.8, total bili 5.2, AST 91, ALT 86, alk phos 455, CPK 31, Troponin 0.05. Patient's blood cultures were sent. Patient had a CAT scan of the abdomen and pelvis done, which was without contrast, which shows cholecystectomy with air in the biliary tract. Spleen is removed. Right-sided nephrostomy catheter in the renal pelvis. Gastrostomy tube in the stomach. Midline ostomy. Colon resection noted. Chest x-ray was done in the emergency room, which shows right upper chest Port-A-Cath, left-sided PICC line. EKG shows sinus tachycardia. Patient was seen in the emergency room by Dr. Gloria Degroot. Code sepsis was called. ICU consult was obtained in the ER. Patient was given multiple IV fluid boluses. Patient was given Zosyn 3.375, vancomycin 1 g in the ER by the ID physician. Patient was started on Ringer's lactate. Radio Communications Mechanician consultation was called. IMPRESSION AND PLAN: 1. Septic shock and severe sepsis. 2. Tachycardia. 3. Hypotension. 4. Leukocytosis with granulocytosis and bandemia. 5. Normocytic anemia. 6. Increased anion gap metabolic acidosis and lactic acidosis. 7. Hyperglycemia. 8. Hyperphosphatemia. 9. Hyperbilirubinemia. 10. Transaminitis. 11. Indeterminate troponin. 12. Sinus tachycardia. 13. Left upper extremity peripherally inserted central catheter line placement. 14. History of feeding dysfunction with chronic hyperalimentation. 15. Status post colectomy, status post cholecystectomy, splenectomy. 16. Status post ileostomy and gastrostomy tube placement. 17. Right-sided nephrostomy. 18. Gastrostomy tube placement. 19. Acute renal failure, acute kidney injury, probably prerenal state with hemoconcentration. 20. Questionable hematuria. 21. Neuropathy. 22. 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 23. Cachexia of malignancy. 24. Deconditioning. PLAN: At this time, patient has been ordered serial labs. CPK, repeat hemoglobin A1c ordered. Lactic acid ordered. LFTs, magnesium, phosphorus, troponin ordered. Repeat CBC ordered. Blood cultures, urine cultures ordered. Consultation Cardiology, Urology, Infectious Disease, Gastroenterology. Type and screen done. Procalcitonin level ordered. Patient is currently started on Dilaudid 1 mg IV every 3 hours p.r.n. Elavil 25 mg at bedtime, heparin 5000 subcu every 8 hours. Patient received multiple liters of Ringer's lactate in the ER. Patient was started on meropenem 500 mg IV every 8 hours, Neurontin 400 mg three times a day, OxyContin 10 mg p.o. every 12 hours, ProAmatine 2.5 mg three times a day, Protonix 40 mg IV daily. Patient was seen by Nephrology. The patient started on 0.9 normal saline at 150 mL an hour, Tylenol 650 mg p.o. suppository every 6 hours p.r.n., Zofran 4 mg IV every 4 hours r p.r.n., oxygen 2 liters continuous. Repeat EKG ordered. Out of bed, SCDs, JOESPH stockings ordered. At present, patient was explained about the details of his medical condition. Diagnosis, test results all explained to the patient at length in layman's language. All question and concerns answered. Patient was explained that his prognosis is extremely poor, which he acknowledged and understand. Time spent in the entire admission and review of patient's data and management is more than 1 hour 55 minutes. Dictated and electronically signed, not read. Sergio Wagner MD
[2018-01-09 07:00] LABS: BASO # 0.01 K/mm3 (0.0-2.0); GRAN # 22.16 (1.4-6.5); GRAN % 85.3 % (50.0-68.0); HEMOGLOBIN 10.4 g/dL (14.0-18.0); LYMPH # 0.8 (1.2-3.4); LYMPH % 2.9 % (22.0-35.0); MEAN CELL VOLUME 90.3 fl (80.0-105.0); MEAN CORPUSCULAR HEMOGLOBIN 29.8 pg (25.0-35.0); MEAN PLATELET VOLUME 13.9 fl (7.0-11.0); MONO # 3.1 (0.1-0.6); MONO % 11.8 % (1.0-6.0); RBC 3.49 10^6/uL (3.5-6.1); RED CELL DISTRIBUTION WIDTH 16.8 % (11.5-14.5)
--- NOTE | 2018-01-09 07:10 | CP.PCM.HP ---
History of Present Illness - History of Present Illness History of Present Illness: 62 year old male with PMHx of carcinoid tumor diagnosed 4 years ago s/p colectomy, ileostomy, right sided nephrostomy tube, recently discharged from the hospital for sepsis from pyelonephritis/cystitis, PEG tube with chronic bowel obstruction and PICC line on TPN, now presents to the hospital for near syncope. Patient states that for the past fews days he has been getting progressively worse L sided back and abdominal pain. Patient states that the pain is constant and 10/10 in severity. Patient states that he went to use the bathroom this morning and felt very dizzy and lightheaded. Patient states that he fell backwards but denies hitting his head or neck. Patient also complains of bloody drainage from nephrostomy bag. No other complaints. 12 Point ROS performed and neg other than stated above. PMH: carcinoid CA of GI tract, renal insufficiency Surg: Colectomy with ileostomy, nephrostomy (right), PEG tube, PICC line placement 1 month ago All: Morphine (rash) FHx: Non-contributory SH: Denied tobacco, ETOH, and illicit drug use Past Patient History - Infectious Disease Hx of Infectious Diseases: None - Tetanus Immunizations Tetanus Immunization: Unknown - Past Social History Smoking Status: Never Smoked - CARDIAC Hx Cardiac Disorders: No - PULMONARY Hx Respiratory Disorders: No - NEUROLOGICAL Hx Neurological Disorder: No - HEENT Hx HEENT Problems: No - RENAL Hx Chronic Kidney Disease: Yes Other/Comment: HAS UROSTOMY - ENDOCRINE/METABOLIC Hx Endocrine Disorders: No - HEMATOLOGICAL/ONCOLOGICAL Hx Cancer: Yes (Gastric; colon) - INTEGUMENTARY Hx Dermatological Problems: No - MUSCULOSKELETAL/RHEUMATOLOGICAL Hx Falls: Yes - GASTROINTESTINAL Hx Gastrointestinal Disorders: Yes Hx Ileostomy: Yes Other/Comment: L colostomy. G tube - GENITOURINARY/GYNECOLOGICAL Hx Genitourinary Disorders: Yes Other/Comment: HAS UROSTOMY - PSYCHIATRIC Hx Psychophysiologic Disorder: No - SURGICAL HISTORY Hx Surgeries: Yes Other/Comment: COLOSTOMY, PEG TUBE, UROSTOMY - ANESTHESIA Hx Anesthesia Reactions: No Hx Malignant Hyperthermia: No Meds Allergies/Adverse Reactions: Allergies Allergy/AdvReac Type Severity Reaction Status Date / Time morphine Allergy ANAPHYLAXIS Verified 12/08/17 19:18 Results - Vital Signs Recent Vital Signs: Last Vital Signs Temp 98.2 F 01/09/18 00:00 Pulse 109 H 01/09/18 03:50 Resp 11 L 01/09/18 03:50 BP 121/74 01/09/18 03:00 Pulse Ox 99 01/09/18 03:50 - Labs Result Diagrams: 01/08/18 08:50 01/08/18 08:50 Labs: Laboratory Results - last 24 hr 01/08/18 01/08/18 01/08/18 11:43 17:45 17:55 ESR 122 H pO2 53 25 L VBG pH 7.19 L* 7.24 L VBG pCO2 46.0 48.0 VBG HCO3 17.6 L 20.6 L VBG Total CO2 19.0 L 22.1 VBG O2 Sat (Calc) 88.5 H 51.6 VBG Base Excess -10.4 L -7.0 L VBG Potassium 4.1 5.1 Sodium 136.0 138.0 Chloride 103.0 105.0 Glucose 167 H 142 H Lactate 6.1 H* 3.7 H FiO2 21.0 21.0 Lactic Acid Uric Acid Total Creatine Kinase Troponin I C-React Prot High Sens Procalcitonin Venous Blood Potassium 4.1 5.1 Urine Color Urine Appearance Urine pH Ur Specific [place] Urine Protein Urine Glucose (UA) Urine Ketones Urine Blood Urine Nitrate Urine Bilirubin Urine Urobilinogen Ur Leukocyte Esterase Urine RBC Urine WBC Ur Epithelial Cells 01/08/18 01/08/18 01/08/18 17:55 17:55 17:55 ESR pO2 VBG pH VBG pCO2 VBG HCO3 VBG Total CO2 VBG O2 Sat (Calc) VBG Base Excess VBG Potassium Sodium Chloride Glucose Lactate FiO2 Lactic Acid Uric Acid 7.8 Total Creatine Kinase 37 Troponin I 0.07 D C-React Prot High Sens > 15.00 H Procalcitonin 13.71 H Venous Blood Potassium Urine Color Urine Appearance Urine pH Ur Specific [place] Urine Protein Urine Glucose (UA) Urine Ketones Urine Blood Urine Nitrate Urine Bilirubin Urine Urobilinogen Ur Leukocyte Esterase Urine RBC Urine WBC Ur Epithelial Cells 01/08/18 01/08/18 01/08/18 18:55 20:30 21:55 ESR pO2 35 VBG pH 7.31 L VBG pCO2 42.0 VBG HCO3 21.1 VBG Total CO2 22.4 VBG O2 Sat (Calc) 75.4 H VBG Base Excess -5.0 L VBG Potassium 3.9 Sodium 139.0 Chloride 108.0 H Glucose 123 H Lactate 2.1 FiO2 21.0 Lactic Acid Uric Acid Total Creatine Kinase Cancelled Troponin I Cancelled C-React Prot High Sens Procalcitonin Venous Blood Potassium 3.9 Urine Color yellow Urine Appearance Clear Urine pH 6.0 Ur Specific [place] 1.015 Urine Protein 30 H Urine Glucose (UA) Negative Urine Ketones Negative Urine Blood Large H Urine Nitrate Negative Urine Bilirubin Negative Urine Urobilinogen 0.2 Ur Leukocyte Esterase Small H Urine RBC 25 - 30 Urine WBC 5 - 10 Ur Epithelial Cells 10 - 12 01/08/18 01/09/18 01/09/18 21:55 01:15 01:15 ESR pO2 38 VBG pH 7.31 L VBG pCO2 44.0 VBG HCO3 22.2 VBG Total CO2 23.6 VBG O2 Sat (Calc) 79.6 H VBG Base Excess -4.1 L VBG Potassium 4.1 Sodium 139.0 Chloride 110.0 H Glucose 120 H Lactate 1.2 FiO2 21.0 Lactic Acid Uric Acid Total Creatine Kinase 31 L 28 L Troponin I 0.06 0.04 D C-React Prot High Sens Procalcitonin Venous Blood Potassium 4.1 Urine Color Urine Appearance Urine pH Ur Specific [place] Urine Protein Urine Glucose (UA) Urine Ketones Urine Blood Urine Nitrate Urine Bilirubin Urine Urobilinogen Ur Leukocyte Esterase Urine RBC Urine WBC Ur Epithelial Cells 01/09/18 05:30 ESR pO2 VBG pH VBG pCO2 VBG HCO3 VBG Total CO2 VBG O2 Sat (Calc) VBG Base Excess VBG Potassium Sodium Chloride Glucose Lactate FiO2 Lactic Acid 2.2 H Uric Acid Total Creatine Kinase Troponin I C-React Prot High Sens Procalcitonin Venous Blood Potassium Urine Color Urine Appearance Urine pH Ur Specific [place] Urine Protein Urine Glucose (UA) Urine Ketones Urine Blood Urine Nitrate Urine Bilirubin Urine Urobilinogen Ur Leukocyte Esterase Urine RBC Urine WBC Ur Epithelial Cells
[2018-01-09 07:30] LABS: ALB/GLOB RATIO 0.8 (1.1-1.8); ALBUMIN 3.1 g/dL (3.0-4.8); BILIRUBIN,DIRECT 3.5 mg/dL (0.0-0.4)
--- NOTE | 2018-01-09 10:08 | CP.PCM.PN ---
<Puneet Mackenzie - Last Filed: 01/09/18 10:05> Subjective - Date & Time of Evaluation Date of Evaluation: 01/09/18 Time of Evaluation: 10:05 - Subjective Subjective: ICU Progress Note Pt seen and examined at bedside. Patient states that he has diffuse body aches. Blood is coming out of nephrostomy tube for the past 3 days. Patient denies CP, SOB, n/v/d, fever, chills, [place], or dizziness. Objective - Vital Signs/Intake and Output Vital Signs (last 24 hours): Temp Pulse Resp BP Pulse Ox 98.2 F 109 H 11 L 121/74 99 01/09/18 00:00 01/09/18 03:50 01/09/18 03:50 01/09/18 03:00 01/09/18 03:50 Intake and Output: 01/09/18 01/09/18 06:59 18:59 Intake Total 1950 Output Total 1625 Balance 325 - Medications Medications: Current Medications Acetaminophen (Tylenol 325mg Tab) 650 mg PO Q6H PRN PRN Reason: FEVER>=99.5F Acetaminophen (Tylenol 650 Mg Supp) 650 mg RC Q6H PRN PRN Reason: TEMP>=99.5F Amitriptyline HCl (Elavil) 25 mg PO HS [facility] Last Admin: 01/08/18 22:34 Dose: 25 mg Gabapentin (Neurontin) 400 mg PO TID [facility] PRN Reason: Protocol Last Admin: 01/09/18 09:01 Dose: 400 mg Heparin Sodium (Porcine) (Heparin) 5,000 units SC Q8 [facility] PRN Reason: Protocol Last Admin: 01/09/18 05:48 Dose: 5,000 units Hydromorphone HCl (Dilaudid) 2 mg IVP Q4H PRN PRN Reason: Pain, moderate (4-7) Last Admin: 01/09/18 07:48 Dose: 2 mg Sodium Chloride (Sodium Chloride 0.9%) 1,000 mls @ 150 mls/hr IV .Q6H40M [facility] Last Admin: 01/09/18 08:59 Dose: 150 mls/hr Meropenem 500 mg/ Sodium (Chloride) 50 mls @ 100 mls/hr IVPB 0200,1000,1800 [facility] PRN Reason: Protocol Stop: 01/13/18 18:01 Last Admin: 01/09/18 09:02 Dose: 100 mls/hr Midodrine (Proamatine) 2.5 mg PO TID [facility] Last Admin: 01/09/18 09:01 Dose: 2.5 mg Ondansetron HCl (Zofran Inj) 4 mg IVP Q4H PRN PRN Reason: Nausea/Vomiting Last Admin: 01/09/18 02:47 Dose: 4 mg Pantoprazole Sodium (Protonix Inj) 40 mg IVP DAILY [facility] Last Admin: 01/09/18 09:01 Dose: 40 mg - Labs Labs: 01/09/18 05:30 01/09/18 05:30 PT 14.3 SECONDS (9.4-12.5) H 01/08/18 08:50 INR 1.24 (0.93-1.08) H 01/08/18 08:50 APTT 38.3 Seconds (25.1-36.5) H 01/08/18 08:50 - Constitutional Appears: No Acute Distress, Cachectic, Chronically Ill - Head Exam Head Exam: NORMAL INSPECTION - Eye Exam Eye Exam: Normal appearance - ENT Exam ENT Exam: Normal Exam - Neck Exam Neck Exam: Normal Inspection - Respiratory Exam Respiratory Exam: Clear to Ausculation Bilateral. absent: Rales, Rhonchi, Wheezes - Cardiovascular Exam Cardiovascular Exam: RRR, +S1, +S2. absent: Gallop, Rubs, Murmur - GI/Abdominal Exam GI & Abdominal Exam: Soft, Tenderness. absent: Distended, Guarding, Rebound Additional comments: Ileostomy tube in place with soft stool, no signs of erythema, discharge around site Nephrostomy tube on right in place with sanguineous output PEG tube in place with gastric content output - Rectal Exam Rectal Exam: NORMAL INSPECTION - Extremities Exam Extremities Exam: Normal Inspection - Back Exam Back Exam: NORMAL INSPECTION - Neurological Exam Neurological Exam: Alert, Awake, CN II-XII Intact, Oriented x3 - Psychiatric Exam Psychiatric exam: Normal Affect, Normal Mood - Skin Skin Exam: Dry, Intact, Normal Color, Warm Assessment and Plan - Assessment and Plan (Free Text) Assessment: 62 year old male with PMHx of carcinoid tumor diagnosed 4 years ago s/p colectomy, ileostomy, right sided nephrostomy tube, recently discharged from the hospital for sepsis from pyelonephritis/cystitis, PEG tube with chronic bowel obstruction and PICC line on TPN, now presents to the hospital for near syncope. Found to have sepsis in the ED (hypotensive, tachycardic, and elevated lactate). Plan: Neuro: - AAO x 3 - Pain control - Stable Pulm: - maintain SPO2 > 90 % - 2L NC as needed CV: - maintain MAP > 65 - 1 L bolus NS x 1, and LR 1.7 L bolus in the ED - NS @ 150 currently - On Midodrine per primary - Echo - EF of 56 % - Cardio consulted GI: - Protonix for ppx - Elevated LFTs - improving - CT abd/pelvis shows no acute intra abdominal finding - GI consulted Renal: - Creatinine improving - Renal US ordered - Replete electrolytes as tolerated - Avoid nephrotoxic drugs - Urology consulted for recs - Nephrology consulted ID: - Leukocytosis, lactate improved WNL, afebrile - Vanc and Zosyn x 1 in the ED - Blood cultures x2 grew gram negative rods - UA negative - On Merrem per ID - Recommend PICC line removal - ID consulted for recs Endo: - Maintain blood glucose 140-180 Heme: - Monitor H/H Case and plan was reviewed and discussed with Dr Cevallos. Abad Mackenzie, PGY1 <Mike Cevallos - Last Filed: 01/09/18 12:08> Objective - Vital Signs/Intake and Output Vital Signs (last 24 hours): Temp Pulse Resp BP Pulse Ox 98.2 F 109 H 11 L 121/74 99 01/09/18 00:00 01/09/18 03:50 01/09/18 03:50 01/09/18 03:00 01/09/18 03:50 Intake and Output: 01/09/18 01/09/18 06:59 18:59 Intake Total 1950 Output Total 1625 Balance 325 - Medications Medications: Current Medications Acetaminophen (Tylenol 325mg Tab) 650 mg PO Q6H PRN PRN Reason: FEVER>=99.5F Acetaminophen (Tylenol 650 Mg Supp) 650 mg RC Q6H PRN PRN Reason: TEMP>=99.5F Amitriptyline HCl (Elavil) 25 mg PO HS [facility] Last Admin: 01/08/18 22:34 Dose: 25 mg Gabapentin (Neurontin) 400 mg PO TID [facility] PRN Reason: Protocol Last Admin: 01/09/18 09:01 Dose: 400 mg Heparin Sodium (Porcine) (Heparin) 5,000 units SC Q8 [facility] PRN Reason: Protocol Last Admin: 01/09/18 05:48 Dose: 5,000 units Hydromorphone HCl (Dilaudid) 2 mg IVP Q4H PRN PRN Reason: Pain, moderate (4-7) Last Admin: 01/09/18 07:48 Dose: 2 mg Sodium Chloride (Sodium Chloride 0.9%) 1,000 mls @ 150 mls/hr IV .Q6H40M [facility] Last Admin: 01/09/18 08:59 Dose: 150 mls/hr Meropenem 500 mg/ Sodium (Chloride) 50 mls @ 100 mls/hr IVPB 0200,1000,1800 [facility] PRN Reason: Protocol Stop: 01/13/18 18:01 Last Admin: 01/09/18 09:02 Dose: 100 mls/hr Midodrine (Proamatine) 2.5 mg PO TID [facility] Last Admin: 01/09/18 09:01 Dose: 2.5 mg Ondansetron HCl (Zofran Inj) 4 mg IVP Q4H PRN PRN Reason: Nausea/Vomiting Last Admin: 01/09/18 02:47 Dose: 4 mg Pantoprazole Sodium (Protonix Inj) 40 mg IVP DAILY [facility] Last Admin: 01/09/18 09:01 Dose: 40 mg Sodium Bicarbonate (Sodium Bicarbonate Tab) 650 mg PO BID [facility] - Labs Labs: 01/09/18 05:30 01/09/18 05:30 PT 14.3 SECONDS (9.4-12.5) H 01/08/18 08:50 INR 1.24 (0.93-1.08) H 01/08/18 08:50 APTT 38.3 Seconds (25.1-36.5) H 01/08/18 08:50 Assessment and Plan - Assessment and Plan (Free Text) Plan: Patient seen and examined with resident, agree with note with following additions/exceptions: Patient is 62 year old male with PMHx of carcinoid tumor diagnosed 4 years ago s /p colectomy, ileostomy, right sided nephrostomy tube, recently discharged from the hospital for sepsis from pyelonephritis/cystitis, PEG tube with chronic bowel obstruction and PICC line on TPN, presents with dizziness, syncope, and severe sepsis with gram negative bacteremia. Currently afebrile, HD stable, complaining of abd pain. Lactate has cleared. Renal function improving. CT A/P done with no acute new intrabdominal pathology noted. Severe Sepsis PRANAV Dehydration Lactic Acidosis, resolved Bacteremia Recommend: - supp o2 as needed - duonebs PRN - Hold BP meds - pain control - IVF hydration - broad spectrum abx, Merrem, Vanco, renally dosed - follow up cultures, Procal, Ucx, BCx - Urology consult - ID consult - ECHO - DC PICC line - PIV insertion - FS control - GI ppx - DVT ppx - Monitor in ICU Critical care time 30 minutes
--- NOTE | 2018-01-09 11:14 | CP.PCM.PN ---
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 Maintain hemodynamics stable. avoid hypotension. Patient not on ACEI/ARB due to PRANAV and low BP Monitor Input/Output, daily weights and renal function with basic metabolic panel supplements electrolytes as needed continue with IVF as normal saline. may give Bolus as needed ID, GI and urology involved added sodium bicarb 650 mg bid Dose meds/antibiotics for reduced GFR. Avoid nephrotoxins/NSAIDs/IV iodinated contrast (unless needed emergently). Avoid fleet enema/Magnesium based laxative. Glycemic control Further work up/management as per primary team Thanks for allowing me to participate in care of your patient. Will follow with you. Please call if any Qs. had d/w and team Dr Eric Oseguera Office: [phone] Reason for consult: PRANAV CC; abdomen pain HPI: Pt is a 62 M with hx of carcinoma of GI tract S/P colectomy and ileostomy, S/P Rt nephrostomy tube placement 2 years ago, history of G-tube placement, on TPN at home presented with c/o bloody urine output from the nephrostomy tube and also worsening abdomen pain for last few days. overall symptoms worsening. renal consult for PRANAV. pt with lactic acidosis and hyperbilir as well. Denies OTC/herbal meds or NSAIDs No recent iodinated contrast exposure. Noted episode of low BP (96/52). ROS: feels better Cardiovascular: No chest pain. Pulmonary: No shortness of breath Gastrointestinal: improved abdominal pain denies nausea. No vomiting. Genitourinary: No pain while urinating. c/o blood in urine. All other negative except as in HPI Physical Examination: General Appearance: comfortable, in no acute respiratory distress, co-operative . ill appearing Vitals reviewed and noted as below Head; Atraumatic, normocephalic ENT: no ulcers no thrush. Tongue is midline/coated. Oropharynx: no rash or ulcers. EYES: Pupils are equal, round and reactive to light accommodation. Eye muscles and extraocular movement intact. Sclera is anicteric. Neck; supple no lymphadenopathy, no thyromegaly or bruit Lungs: Normal respiratory rate/effort. Breath sounds bilateral equal and clear Heart: Increased rate. s1s2 normal. No rub or gallop. Extremities: no edema. No varicose veins Neurological: Patient is alert, awake and oriented to person, place and time. No focal deficit. Strength bilateral appropriate and equal Skin: Warm and dry. Normal turgor. No rash. Palpitation: Normal elasticity for age Abdomen: Abdomen is soft. Bowel sounds +. There is no abdominal tenderness, no guarding/rigidity no organomegaly. has iletostomy and G tube Psych: normal insight and normal affect/mood MSK: no joint tenderness or swelling. Digits and nails normal, no deformity : kidney or bladder not palpable. has Rt nephrostomy tube draining hemorrhagic urine Labs/imaging reviewed. Past medical history, past surgical history, family history, social history, allergy reviewed and noted as below Family hx: no hx of CKD. Rest non-contributory renal imaging WNL Objective - Vital Signs/Intake and Output Vital Signs (last 24 hours): Temp Pulse Resp BP Pulse Ox 98.2 F 109 H 11 L 121/74 99 01/09/18 00:00 01/09/18 03:50 01/09/18 03:50 01/09/18 03:00 01/09/18 03:50 Intake and Output: 01/09/18 01/09/18 06:59 18:59 Intake Total 1950 Output Total 1625 Balance 325 - Medications Medications: Current Medications Acetaminophen (Tylenol 325mg Tab) 650 mg PO Q6H PRN PRN Reason: FEVER>=99.5F Acetaminophen (Tylenol 650 Mg Supp) 650 mg RC Q6H PRN PRN Reason: TEMP>=99.5F Amitriptyline HCl (Elavil) 25 mg PO HS [facility] Last Admin: 01/08/18 22:34 Dose: 25 mg Gabapentin (Neurontin) 400 mg PO TID [facility] PRN Reason: Protocol Last Admin: 01/09/18 09:01 Dose: 400 mg Heparin Sodium (Porcine) (Heparin) 5,000 units SC Q8 [facility] PRN Reason: Protocol Last Admin: 01/09/18 05:48 Dose: 5,000 units Hydromorphone HCl (Dilaudid) 2 mg IVP Q4H PRN PRN Reason: Pain, moderate (4-7) Last Admin: 01/09/18 07:48 Dose: 2 mg Sodium Chloride (Sodium Chloride 0.9%) 1,000 mls @ 150 mls/hr IV .Q6H40M [facility] Last Admin: 01/09/18 08:59 Dose: 150 mls/hr Meropenem 500 mg/ Sodium (Chloride) 50 mls @ 100 mls/hr IVPB 0200,1000,1800 [facility] PRN Reason: Protocol Stop: 01/13/18 18:01 Last Admin: 01/09/18 09:02 Dose: 100 mls/hr Midodrine (Proamatine) 2.5 mg PO TID [facility] Last Admin: 01/09/18 09:01 Dose: 2.5 mg Ondansetron HCl (Zofran Inj) 4 mg IVP Q4H PRN PRN Reason: Nausea/Vomiting Last Admin: 01/09/18 02:47 Dose: 4 mg Pantoprazole Sodium (Protonix Inj) 40 mg IVP DAILY [facility] Last Admin: 01/09/18 09:01 Dose: 40 mg Sodium Bicarbonate (Sodium Bicarbonate Tab) 650 mg PO BID [facility] - Labs Labs: 01/09/18 05:30 01/09/18 05:30 PT 14.3 SECONDS (9.4-12.5) H 01/08/18 08:50 INR 1.24 (0.93-1.08) H 01/08/18 08:50 APTT 38.3 Seconds (25.1-36.5) H 01/08/18 08:50
--- NOTE | 2018-01-09 11:29 | CP.PCM.PN ---
Subjective - Date & Time of Evaluation Date of Evaluation: 01/09/18 Time of Evaluation: 06:28 - Subjective Subjective: Patient seen and evaluated bedside in ICU. Patient was complaining of back pain and nausea. No acute issues overnight. Patient denies any chest pain, nausea, vomiting, fever, chills or any other complains at this time. Objective - Vital Signs/Intake and Output Vital Signs (last 24 hours): Temp Pulse Resp BP Pulse Ox 98.2 F 109 H 11 L 121/74 99 01/09/18 00:00 01/09/18 03:50 01/09/18 03:50 01/09/18 03:00 01/09/18 03:50 Intake and Output: 01/09/18 01/09/18 06:59 18:59 Intake Total 1950 Output Total 1625 Balance 325 - Medications Medications: Current Medications Acetaminophen (Tylenol 325mg Tab) 650 mg PO Q6H PRN PRN Reason: FEVER>=99.5F Acetaminophen (Tylenol 650 Mg Supp) 650 mg RC Q6H PRN PRN Reason: TEMP>=99.5F Amitriptyline HCl (Elavil) 25 mg PO HS [facility] Last Admin: 01/08/18 22:34 Dose: 25 mg Gabapentin (Neurontin) 400 mg PO TID [facility] PRN Reason: Protocol Last Admin: 01/09/18 09:01 Dose: 400 mg Heparin Sodium (Porcine) (Heparin) 5,000 units SC Q8 [facility] PRN Reason: Protocol Last Admin: 01/09/18 05:48 Dose: 5,000 units Hydromorphone HCl (Dilaudid) 2 mg IVP Q4H PRN PRN Reason: Pain, moderate (4-7) Last Admin: 01/09/18 07:48 Dose: 2 mg Sodium Chloride (Sodium Chloride 0.9%) 1,000 mls @ 150 mls/hr IV .Q6H40M [facility] Last Admin: 01/09/18 08:59 Dose: 150 mls/hr Meropenem 500 mg/ Sodium (Chloride) 50 mls @ 100 mls/hr IVPB 0200,1000,1800 [facility] PRN Reason: Protocol Stop: 01/13/18 18:01 Last Admin: 01/09/18 09:02 Dose: 100 mls/hr Midodrine (Proamatine) 2.5 mg PO TID [facility] Last Admin: 01/09/18 09:01 Dose: 2.5 mg Ondansetron HCl (Zofran Inj) 4 mg IVP Q4H PRN PRN Reason: Nausea/Vomiting Last Admin: 01/09/18 02:47 Dose: 4 mg Pantoprazole Sodium (Protonix Inj) 40 mg IVP DAILY [facility] Last Admin: 01/09/18 09:01 Dose: 40 mg Sodium Bicarbonate (Sodium Bicarbonate Tab) 650 mg PO BID [facility] - Labs Labs: 01/09/18 05:30 01/09/18 05:30 PT 14.3 SECONDS (9.4-12.5) H 01/08/18 08:50 INR 1.24 (0.93-1.08) H 01/08/18 08:50 APTT 38.3 Seconds (25.1-36.5) H 01/08/18 08:50 - Constitutional Appears: No Acute Distress, Cachectic, Chronically Ill - Head Exam Head Exam: NORMAL INSPECTION - Eye Exam Eye Exam: Scleral icterus - ENT Exam ENT Exam: Mucous Membranes Moist - Respiratory Exam Respiratory Exam: Clear to Ausculation Bilateral, NORMAL BREATHING PATTERN - Cardiovascular Exam Cardiovascular Exam: REGULAR RHYTHM, +S1, +S2 - GI/Abdominal Exam GI & Abdominal Exam: Soft, Normal Bowel Sounds Additional comments: Ileostomy tube in place Nephrostomy tube on right in place PEG tube in place with gastric content output - Neurological Exam Neurological Exam: Alert, Awake, Oriented x3 Assessment and Plan - Assessment and Plan (Free Text) Assessment: 62 year old male with PMHx of carcinoid tumor diagnosed 4 years ago s/p colectomy, ileostomy, right sided nephrostomy tube, recently discharged from the hospital for sepsis from pyelonephritis/cystitis, PEG tube with chronic bowel obstruction and PICC line on TPN, now presents to the hospital for near syncope. Found to have sepsis in the ED (hypotensive, tachycardic, and elevated lactate). Plan: 1. Sepsis -afebrile -WBC 26.0 -ID consulted -continue Meropenem -Blood cultures showing gram negative rods, will repeat -likely seconadry from PICC line -Tim Calhoun consulted for PICC removal -BP: 121/74, tachycardic -lactate 2.22 2. Anemia -Hgb: 10.4 -continue to monitor 3. Elevated Liver Enzymes and Elevated Bilirubin -continue to trend -CT abdomen/pelvis: no acute intrabdominal findings -GI Olivo consulted, follow recs 4. Carcinoid Tumor-chronic -palliative care consult -pain medications 5. PRANAV -nephro consulted, Oumar, follow recs -continue fluids -urology consulted for nephrostomy tube bleeding -started on sodium bicarb 6. Hypotension-chronic -continue to monitor -continue home meds PPX: GI: protonix DVT: heparin SC Physical Therapy pending, OOB to chair TCU evaluation Patient seen and discussed with attending Dr. Wagner
--- NOTE | 2018-01-09 11:43 | CARD ---
APPROVED REPORT EKG Measurement Heart [id number] <Conclusion> Sinus tachycardia No change
--- NOTE | 2018-01-09 13:38 | US ---
PROCEDURE: Ultrasound of the Kidneys HISTORY: renal insufficiency COMPARISON: None available. TECHNIQUE: Sonogram of the kidneys. FINDINGS: RIGHT KIDNEY: Measures: 12.16 x 4.21 x 4.41 cm. Normal in size, contour and echogenicity. No stone, solid mass lesion or hydronephrosis visualized. LEFT KIDNEY: Measures: 10.07 x 4.94 x 4.40 cm. Normal in size, contour and echogenicity. No stone, solid mass lesion or hydronephrosis visualized. OTHER FINDINGS: None. IMPRESSION: Unremarkable renal sonogram.
--- NOTE | 2018-01-09 14:52 | PN ---
DATE: 01/09/2018 SUBJECTIVE: The patient is in ICU bed 1. The patient is in the bed. Overnight nurse's notes were reviewed. The patient had episodic complaints of pain for which the patient's Dilaudid was increased to Dilaudid 2 mg IV every 4 hours p.r.n. The patient was found to have an old Duragesic patch on the body which was removed because of unknown date of use and placement. The biomedical engineering technician contacted the patient's pharmacy. There was no record of Duragesic patch since 09/2017. PHYSICAL EXAMINATION: VITAL SIGNS: The patient is afebrile, heart rate is 109. Telemetry shows sinus rhythm, sinus tachycardia. Blood pressure 121/74 today. Average blood pressure is in 120s systolic and diastolic around 70s and 80s. HEENT: Head examination normocephalic, atraumatic. HEENT examination shows pinkish pale conjunctivae. Anicteric sclerae. Positive of the skin. Pinkish pale conjunctivae. No jugular venous distention. CHEST: Kyphosis. LUNGS: Shows occasional rhonchi of upper lung jhaveri anteriorly. CARDIOVASCULAR: S1, S2, regular rhythm. Questionable soft systolic murmur at left sternal border, right second intercostal space. ABDOMEN: Soft. Positive gastrostomy, positive ileostomy. Positive left upper extremity PICC line. Positive right upper chest Port-A-Cath. Abdomen has diffuse voluntary guarding. No hepatosplenomegaly appreciated. GENITALIA: Male. RECTAL: Deferred. Positive right flank percutaneous nephrostomy noted, connected to the Cardona bag. NEUROLOGIC: The patient is alert, awake, responsive and the patient also has tendency to be sleepy, but arousable, responsive. Cranial nerves II through XII limited. Gait examination could not be tested. VASCULAR: Palpable pulses. DIAGNOSTICS: From 01/09/2018, WBC is 26,000, decreasing from 29,000; hemoglobin and hematocrit 10.4 and 31.5, platelet 186,000. ESR 122. VBG, pH of 7.31. Lactic acid today is down to 1.2. Sodium 146, potassium 4.1, chloride 113, CO2 of 18, BUN down to 54, creatinine down to 1.7, glucose 113, anion gap 19, GFR 50, total bili 4.2, direct bili 3.5, AST 65, ALT 68, alk phos 358. Troponin, all 3 sets, peak troponin is 0.06. Urinalysis proteinuria, microscopic hematuria noted and positive leukocyte esterase. Blood cultures growing Gram-negative veena in both the bottles. IMPRESSION: 1. Gram-negative veena bacteremia and septicemia. 2. Septic shock. 3. Hypotension. 4. Tachycardia. 5. Leukocytosis with granulocytosis and bandemia. 6. Elevated erythrocyte sedimentation rate of 122. 7. Increased anion gap metabolic acidosis and high anion gap metabolic acidosis with lactic acidosis. 8. Acute renal failure, acute kidney injury secondary to hyperperfusion, resolving. 9. Hyperbilirubinemia. 10. Transaminitis. 11. Indeterminate troponin. 12. Proteinuria, hematuria, bacteriuria, pyuria. 13. Sinus tachycardia. 14. History of gastrointestinal carcinoid tumor. 15. Feeding dysfunction with placement of gastrostomy tube. 16. Chronic bowel obstruction. 17. Chronic hyperalimentation dependent feeding dysfunction. 18. Right percutaneous nephrostomy. 19. Deconditioning. 20. Cachexia of malignancy. 21. Chronic narcotic-dependent pain syndrome of malignancy. 22. Questionable and possible obstructive jaundice with hyperbilirubinemia. 23. Elevated erythrocyte sedimentation rate. PLAN: At this time, the patient's has been ordered serial labs. Repeat blood cultures ordered. Urine cultures pending. Current consultation Cardiology, Infectious Disease, Urology, Nephrology. The patient's plan at this time, the patient will be continued on above therapeutic intervention as per the MAR of today which was reviewed. The patient is to be continued on broad-spectrum IV antibiotics as per Infectious Disease. The patient will be continued on pain management, Dilaudid 2 mg IV every 4 hours p.r.n. The patient will be continued on GI, DVT prophylaxis. The patient will be continued on other medications as per MAR. Prognosis guarded to poor, patient aware. If the patient stays and appears stable subjectively and objectively, the patient will be considered to be transferred out of ICU if stable. Time spent in the entire management more than 35 minutes. Dictated and electronically signed, not read. Sergio Wagner MD
[2018-01-09 16:30] LABS: HEPATITIS B SURFACE AG Negative (NEGATIVE)
[2018-01-09 16:36] LABS: HEPATITIS A IGM NEGATIVE (NEGATIVE); HEPATITIS B CORE AB NEGATIVE (NEGATIVE)
[2018-01-09 17:49] LABS: HEPATITIS C ANTIBODY NEGATIVE (NEGATIVE)
--- NOTE | 2018-01-09 17:55 | CP.PCM.CON ---
History of Present Illness - History of Present Illness History of Present Illness: 62 year old male with PMH of carcinoma of GI tract S/P colectomy and ileostomy, S/P neprhostomy tube placement on the right 2 years ago, history of G-tube placement, chronic renal failure was recently admitted in [facility] [place] for right sided pyelonephritis and coagulase negative staph bacteremia from chest port. The chest port was removed and the patient completed antibiotics for both infections. He has an indwelling PICC line since then. He comes back to [facility] [place] because of worsening left sided back pain and abdominal pain. He had some nausea but no vomiting, no fever or chills, no headache or dizziness, no chest pain, no diarrhea, no dysuria. Blood cx were done which are showing gram negative bacilli. Infectious Diseases consult is requested to further evaluate and manage. Review of Systems - Review of Systems All systems: reviewed and no additional remarkable complaints except (as per HPI ) Past Patient History - Infectious Disease Hx of Infectious Diseases: None - Tetanus Immunizations Tetanus Immunization: Unknown - Past Social History Smoking Status: Never Smoked - CARDIAC Hx Cardiac Disorders: No - PULMONARY Hx Respiratory Disorders: No - NEUROLOGICAL Hx Neurological Disorder: No - HEENT Hx HEENT Problems: No - RENAL Hx Chronic Kidney Disease: Yes Other/Comment: HAS UROSTOMY - ENDOCRINE/METABOLIC Hx Endocrine Disorders: No - HEMATOLOGICAL/ONCOLOGICAL Hx Cancer: Yes (Gastric; colon) - INTEGUMENTARY Hx Dermatological Problems: No - MUSCULOSKELETAL/RHEUMATOLOGICAL Hx Falls: Yes - GASTROINTESTINAL Hx Gastrointestinal Disorders: Yes Hx Ileostomy: Yes Other/Comment: L colostomy. G tube - GENITOURINARY/GYNECOLOGICAL Hx Genitourinary Disorders: Yes Other/Comment: HAS UROSTOMY - PSYCHIATRIC Hx Psychophysiologic Disorder: No - SURGICAL HISTORY Hx Surgeries: Yes Other/Comment: COLOSTOMY, PEG TUBE, UROSTOMY - ANESTHESIA Hx Anesthesia Reactions: No Hx Malignant Hyperthermia: No Meds Allergies/Adverse Reactions: Allergies Allergy/AdvReac Type Severity Reaction Status Date / Time morphine Allergy ANAPHYLAXIS Verified 12/08/17 19:18 - Medications Medications: Current Medications Acetaminophen (Tylenol 325mg Tab) 650 mg PO Q6H PRN PRN Reason: FEVER>=99.5F Acetaminophen (Tylenol 650 Mg Supp) 650 mg RC Q6H PRN PRN Reason: TEMP>=99.5F Amitriptyline HCl (Elavil) 25 mg PO HS [facility] Last Admin: 01/08/18 22:34 Dose: 25 mg Gabapentin (Neurontin) 400 mg PO TID [facility] PRN Reason: Protocol Last Admin: 01/08/18 18:43 Dose: 400 mg Heparin Sodium (Porcine) (Heparin) 5,000 units SC Q8 [facility] PRN Reason: Protocol Last Admin: 01/09/18 05:48 Dose: 5,000 units Hydromorphone HCl (Dilaudid) 2 mg IVP Q4H PRN PRN Reason: Pain, moderate (4-7) Last Admin: 01/09/18 02:48 Dose: 2 mg Sodium Chloride (Sodium Chloride 0.9%) 1,000 mls @ 150 mls/hr IV .Q6H40M [facility] Last Admin: 01/09/18 02:53 Dose: 150 mls/hr Meropenem 500 mg/ Sodium (Chloride) 50 mls @ 100 mls/hr IVPB 0200,1000,1800 [facility] PRN Reason: Protocol Stop: 01/13/18 18:01 Last Admin: 01/09/18 02:02 Dose: 100 mls/hr Midodrine (Proamatine) 2.5 mg PO TID [facility] Last Admin: 01/08/18 18:44 Dose: 2.5 mg Ondansetron HCl (Zofran Inj) 4 mg IVP Q4H PRN PRN Reason: Nausea/Vomiting Last Admin: 01/09/18 02:47 Dose: 4 mg Pantoprazole Sodium (Protonix Inj) 40 mg IVP DAILY [facility] Last Admin: 01/08/18 12:57 Dose: 40 mg Physical Exam - Constitutional Appears: Chronically Ill - Head Exam Head Exam: NORMAL INSPECTION - Neck Exam Neck exam: Negative for: Meningismus - Respiratory Exam Respiratory Exam: Decreased Breath Sounds - Cardiovascular Exam Cardiovascular Exam: +S1, +S2 - GI/Abdominal Exam GI & Abdominal Exam: Soft. absent: Tenderness Additional comments: PEG tube in place; right sided nephrostomy tube with blood urine - Extremities Exam Additional comments: left upper arm PICC line in place Results - Vital Signs Recent Vital Signs: Last Vital Signs Temp 98.2 F 01/09/18 00:00 Pulse 109 H 01/09/18 03:50 Resp 11 L 01/09/18 03:50 BP 121/74 01/09/18 03:00 Pulse Ox 99 01/09/18 03:50 - Labs Result Diagrams: 01/09/18 05:30 01/09/18 05:30 Labs: Laboratory Results - last 24 hr 01/08/18 01/08/18 01/08/18 11:43 17:45 17:55 ESR 122 H pO2 53 25 L VBG pH 7.19 L* 7.24 L VBG pCO2 46.0 48.0 VBG HCO3 17.6 L 20.6 L VBG Total CO2 19.0 L 22.1 VBG O2 Sat (Calc) 88.5 H 51.6 VBG Base Excess -10.4 L -7.0 L VBG Potassium 4.1 5.1 Sodium 136.0 138.0 Chloride 103.0 105.0 Glucose 167 H 142 H Lactate 6.1 H* 3.7 H FiO2 21.0 21.0 Lactic Acid Uric Acid Total Creatine Kinase Troponin I C-React Prot High Sens Procalcitonin Venous Blood Potassium 4.1 5.1 Urine Color Urine Appearance Urine pH Ur Specific [place] Urine Protein Urine Glucose (UA) Urine Ketones Urine Blood Urine Nitrate Urine Bilirubin Urine Urobilinogen Ur Leukocyte Esterase Urine RBC Urine WBC Ur Epithelial Cells 01/08/18 01/08/18 01/08/18 17:55 17:55 17:55 ESR pO2 VBG pH VBG pCO2 VBG HCO3 VBG Total CO2 VBG O2 Sat (Calc) VBG Base Excess VBG Potassium Sodium Chloride Glucose Lactate FiO2 Lactic Acid Uric Acid 7.8 Total Creatine Kinase 37 Troponin I 0.07 D C-React Prot High Sens > 15.00 H Procalcitonin 13.71 H Venous Blood Potassium Urine Color Urine Appearance Urine pH Ur Specific [place] Urine Protein Urine Glucose (UA) Urine Ketones Urine Blood Urine Nitrate Urine Bilirubin Urine Urobilinogen Ur Leukocyte Esterase Urine RBC Urine WBC Ur Epithelial Cells 01/08/18 01/08/18 01/08/18 18:55 20:30 21:55 ESR pO2 35 VBG pH 7.31 L VBG pCO2 42.0 VBG HCO3 21.1 VBG Total CO2 22.4 VBG O2 Sat (Calc) 75.4 H VBG Base Excess -5.0 L VBG Potassium 3.9 Sodium 139.0 Chloride 108.0 H Glucose 123 H Lactate 2.1 FiO2 21.0 Lactic Acid Uric Acid Total Creatine Kinase Cancelled Troponin I Cancelled C-React Prot High Sens Procalcitonin Venous Blood Potassium 3.9 Urine Color yellow Urine Appearance Clear Urine pH 6.0 Ur Specific [place] 1.015 Urine Protein 30 H Urine Glucose (UA) Negative Urine Ketones Negative Urine Blood Large H Urine Nitrate Negative Urine Bilirubin Negative Urine Urobilinogen 0.2 Ur Leukocyte Esterase Small H Urine RBC 25 - 30 Urine WBC 5 - 10 Ur Epithelial Cells 10 - 12 01/08/18 01/09/18 01/09/18 21:55 01:15 01:15 ESR pO2 38 VBG pH 7.31 L VBG pCO2 44.0 VBG HCO3 22.2 VBG Total CO2 23.6 VBG O2 Sat (Calc) 79.6 H VBG Base Excess -4.1 L VBG Potassium 4.1 Sodium 139.0 Chloride 110.0 H Glucose 120 H Lactate 1.2 FiO2 21.0 Lactic Acid Uric Acid Total Creatine Kinase 31 L 28 L Troponin I 0.06 0.04 D C-React Prot High Sens Procalcitonin Venous Blood Potassium 4.1 Urine Color Urine Appearance Urine pH Ur Specific [place] Urine Protein Urine Glucose (UA) Urine Ketones Urine Blood Urine Nitrate Urine Bilirubin Urine Urobilinogen Ur Leukocyte Esterase Urine RBC Urine WBC Ur Epithelial Cells 01/09/18 05:30 ESR pO2 VBG pH VBG pCO2 VBG HCO3 VBG Total CO2 VBG O2 Sat (Calc) VBG Base Excess VBG Potassium Sodium Chloride Glucose Lactate FiO2 Lactic Acid 2.2 H Uric Acid Total Creatine Kinase Troponin I C-React Prot High Sens Procalcitonin Venous Blood Potassium Urine Color Urine Appearance Urine pH Ur Specific [place] Urine Protein Urine Glucose (UA) Urine Ketones Urine Blood Urine Nitrate Urine Bilirubin Urine Urobilinogen Ur Leukocyte Esterase Urine RBC Urine WBC Ur Epithelial Cells Assessment & Plan - Assessment and Plan (Free Text) Plan: Assessment severe sepsis with acute on chronic renal failure due to gram negative bacilli bacteremia R/O PICC line-related infection, R/O UTI S/P sepsis S/P right sided pyelonephritis with associated cystitis, with persistent coagulase negative staph bacteremia probably port/ central line as the source S/P removal pneumobilia and elevated bilirubin, consider S/P cholecystectomy R/O choledocholethiasis 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
--- NOTE | 2018-01-09 19:15 | CON ---
DATE: 01/09/2018 REQUESTING PHYSICIAN: Sergio Wagner M.D. 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 Pain was on the left side. He has a right percutaneous nephrostomy. The patient has also noted blood coming from his nephrostomy tube. The patient was also noted to have a elevated white blood cell count and felt to be septic. He was also noted to have a lactic acidosis. He has chronic abdominal pain from his metastatic disease. A CT scan of the abdomen and pelvis was performed in the emergency room and showed no acute findings. The patient also has a diverting gastrostomy tube for chronic bowel obstruction. PAST MEDICAL HISTORY: As above. Again, he has a history of carcinoid of the large bowel with extensive intra-abdominal metastasis requiring a right percutaneous nephrostomy tube, a venting gastrostomy tube for chronic intermittent bowel obstruction as well as a left lower quadrant ileostomy. He was just recently discharged from the hospital several weeks ago for a nonfunctioning right nephrostomy tube. He also has chronic renal insufficiency. PAST SURGICAL HISTORY: Notable for colectomy, ileostomy, PEG tube placement. SOCIAL HISTORY: He denies cigarette smoking or alcohol use. FAMILY HISTORY: Noncontributory. REVIEW OF SYSTEMS: A 14-point review of systems is notable for generalized weakness, near syncope, hematuria, chronic abdominal pain. MEDICATIONS AT HOME: Include oxycodone, Zofran, Bactroban ointment, ProAmatine, loperamide, gabapentin, amitriptyline, and acetaminophen. PHYSICAL EXAMINATION: GENERAL: Chronically ill-appearing male, lying in bed, in no acute distress. VITAL SIGNS: Reveal temperature of 98.2, blood pressure of 121/74, heart rate 114. HEENT: Reveal sclerae to be white. Conjunctivae pale. NECK: Supple. CHEST: Reveal scattered rhonchi. HEART: Reveals an irregular rate. ABDOMEN: Soft. He has a right posterior nephrostomy draining bloody urine. He has a left lower quadrant ileostomy as well as a gastrostomy tube in the left upper abdomen. EXTREMITIES: Show no edema. LABORATORY DATA: Reveal white blood cell count 26, hemoglobin 10.4, sed rate of 122, total bilirubin 4.2, AST 65, ALT 68, alkaline phosphatase of 358. IMPRESSION: An unfortunate 62-year-old male with advanced carcinoid of the abdomen with extensive intra-abdominal metastasis requiring a right percutaneous nephrostomy for hydronephrosis, a venting gastrostomy tube for bowel obstruction as well as a diverting ileostomy. He appears to be septic. He does have gross hematuria. Etiology of which is unclear. He does have chronic abdominal pain from his advanced metastatic carcinoid. His overall prognosis is poor. RECOMMENDATIONS: 1. Continue supportive care. 2. Advance diet as tolerated. 3. Consider palliative care evaluation. Ezequiel Olivo MD
--- NOTE | 2018-01-09 19:28 | CON ---
DATE: 01/09/2018 CARDIOLOGY CONSULTATION HISTORY OF PRESENT ILLNESS: The patient is a 62-year-old male who presents with abdominal pain. He was found to have an elevated white count with a gram-negative bacteremia. PAST MEDICAL HISTORY: Include right nephrostomy tube, history of PICC line and questionable history of carcinoid in the past. He was here last month for similar symptoms. SUSIE was performed, which revealed no vegetations. Denies shortness of breath. Denies chest pain. REVIEW OF SYSTEMS: A 14-point review of systems was reviewed. No cardiac symptoms noted. PHYSICAL EXAMINATION: VITAL SIGNS: Blood pressure is 121/74, heart rate is 100. NECK: Negative JVD. LUNGS: Without rales. HEART: S1, S2. EXTREMITIES: Without edema. EKG is within normal limits. LABORATORY DATA: White count is 26,000, hemoglobin is 10.4. Chemistries: BUN and creatinine is 54 and 1.7. Troponins are 0.06 and 0.04. IMPRESSION: 1. Sepsis. 2. No evidence for endocarditis. 3. Anemia. 4. Renal insufficiency. 5. Intermediate elevated troponins. Given these findings, we will need to evaluate with a PICC line needs to be change. Patient is currently on IV antibiotics. Tim Salcido MD
[2018-01-10] MEDS: Meropenem 500 MG in Sodium Chloride 0.9% 50 ML IVPB SCH ×3 (01:55→17:17)
[2018-01-10] MEDS: HYDROmorphone 2 mg/ml ISec IVP PRN ×3 (02:01→19:53)
[2018-01-10] MEDS: Sodium Chloride 0.9% 1,000 ML IV SCH (04:50)
--- NOTE | 2018-01-10 06:40 | CP.PCM.PN ---
Subjective - Date & Time of Evaluation Date of Evaluation: 01/10/18 Time of Evaluation: 07:00 - Subjective Subjective: Patient seen and evaluated bedside. No acute issues overnight. Patient states his diffuse pain has improved today, along with decrease in nausea. He will be getting chemo catheter placed today. Patient denies any chest pain, shortness of breath, abdominal pain, fever, chills or any other complaints at this time. Objective - Vital Signs/Intake and Output Vital Signs (last 24 hours): Temp Pulse Resp BP Pulse Ox 98 F 113 H 15 113/71 99 01/10/18 06:00 01/10/18 06:20 01/10/18 06:20 01/10/18 06:11 01/10/18 06:20 Intake and Output: 01/09/18 01/10/18 18:59 06:59 Intake Total 1920 Output Total 0 Balance -130 - Medications Medications: Current Medications Acetaminophen (Tylenol 325mg Tab) 650 mg PO Q6H PRN PRN Reason: FEVER>=99.5F Acetaminophen (Tylenol 650 Mg Supp) 650 mg RC Q6H PRN PRN Reason: TEMP>=99.5F Amitriptyline HCl (Elavil) 25 mg PO HS [facility] Last Admin: 01/09/18 22:00 Dose: 25 mg Gabapentin (Neurontin) 400 mg PO TID [facility] PRN Reason: Protocol Last Admin: 01/09/18 17:39 Dose: 400 mg Heparin Sodium (Porcine) (Heparin) 5,000 units SC Q8 [facility] PRN Reason: Protocol Last Admin: 01/10/18 06:27 Dose: 5,000 units Hydromorphone HCl (Dilaudid) 2 mg IVP Q4H PRN PRN Reason: Pain, moderate (4-7) Last Admin: 01/10/18 06:30 Dose: 2 mg Sodium Chloride (Sodium Chloride 0.9%) 1,000 mls @ 150 mls/hr IV .Q6H40M [facility] Last Admin: 01/10/18 04:50 Dose: 150 mls/hr Meropenem 500 mg/ Sodium (Chloride) 50 mls @ 100 mls/hr IVPB 0200,1000,1800 [facility] PRN Reason: Protocol Stop: 01/13/18 18:01 Last Admin: 01/10/18 01:55 Dose: 100 mls/hr Midodrine (Proamatine) 2.5 mg PO TID [facility] Last Admin: 01/09/18 17:39 Dose: 2.5 mg Ondansetron HCl (Zofran Inj) 4 mg IVP Q4H PRN PRN Reason: Nausea/Vomiting Last Admin: 01/09/18 12:21 Dose: 4 mg Pantoprazole Sodium (Protonix Inj) 40 mg IVP DAILY [facility] Last Admin: 01/09/18 09:01 Dose: 40 mg Sodium Bicarbonate (Sodium Bicarbonate Tab) 650 mg PO BID [facility] Last Admin: 01/09/18 17:39 Dose: 650 mg - Labs Labs: 01/09/18 05:30 01/09/18 05:30 PT 14.3 SECONDS (9.4-12.5) H 01/08/18 08:50 INR 1.24 (0.93-1.08) H 01/08/18 08:50 APTT 38.3 Seconds (25.1-36.5) H 01/08/18 08:50 - Constitutional Appears: Non-toxic, No Acute Distress, Cachectic - Head Exam Head Exam: ATRAUMATIC, NORMAL INSPECTION, NORMOCEPHALIC - Eye Exam Eye Exam: EOMI, Normal appearance, PERRL - ENT Exam ENT Exam: Mucous Membranes Moist - Respiratory Exam Respiratory Exam: Clear to Ausculation Bilateral, NORMAL BREATHING PATTERN - Cardiovascular Exam Cardiovascular Exam: Tachycardia, +S1, +S2 - GI/Abdominal Exam GI & Abdominal Exam: Soft. absent: Distended - Extremities Exam Extremities Exam: absent: Pedal Edema - Neurological Exam Neurological Exam: Alert, Awake, Oriented x3 Assessment and Plan - Assessment and Plan (Free Text) Assessment: 62 year old male with PMHx of carcinoid tumor diagnosed 4 years ago s/p colectomy, ileostomy, right sided nephrostomy tube, recently discharged from the hospital for sepsis from pyelonephritis/cystitis, PEG tube with chronic bowel obstruction and PICC line on TPN, now presents to the hospital for near syncope. Found to have sepsis in the ED (hypotensive, tachycardic, and elevated lactate). Plan: 1. Sepsis -afebrile -WBC 23 -ID consulted -follow up urine cx, continue Merrem, recommend at least 2 weeks of antibiotics from time of PICC removal - may be able to de-escalate antibiotics to Cefazolin ; -intial Blood cultures showing gram negative rods, repeat showing no growth currently -likely secondary from PICC line -Tim Calhoun consulted for PICC removal -BP: 114/79, tachycardic -lactate 1.3 2. Anemia -Hgb: 9.9 -continue to monitor 3. Elevated Liver Enzymes and Elevated Bilirubin -continue to trend -CT abdomen/pelvis: no acute intrabdominal findings -GI Olivo consulted, follow recs -T bili elevated to 5.3 -liver function elevated form yesterday 4. Carcinoid Tumor-chronic -palliative care consult -pain medications -will have placement of right chemo cath today with IR 5. PRANAV -nephro consulted, Oumar, follow recs -continue fluids -urology consulted for nephrostomy tube bleeding -sodium bicarb 6. Hypotension-chronic -continue to monitor -continue home meds PPX: GI: protonix DVT: heparin SC Physical Therapy pending, OOB to chair TCU evaluation Patient seen and discussed with attending Dr. Wagner
[2018-01-10 06:49] LABS: BASO # 0.01 K/mm3 (0.0-2.0); EOS % 0.1 % (1.5-5.0); GRAN # 19.55 (1.4-6.5); GRAN % 83.1 % (50.0-68.0); HEMOGLOBIN 9.9 g/dL (14.0-18.0); LYMPH # 1.4 (1.2-3.4); LYMPH % 5.9 % (22.0-35.0); MEAN CELL VOLUME 88.7 fl (80.0-105.0); MEAN CORPUSCULAR HEMOGLOBIN 29.5 pg (25.0-35.0); MEAN CORPUSCULAR HGB CONC 33.2 g/dl (31.0-37.0); MEAN PLATELET VOLUME 13.1 fl (7.0-11.0); MONO # 2.6 (0.1-0.6); MONO % 10.9 % (1.0-6.0); RBC 3.36 10^6/uL (3.5-6.1); RED CELL DISTRIBUTION WIDTH 16.8 % (11.5-14.5); WHITE BLOOD COUNT 23.5 10^3/ul (4.5-11.0)
[2018-01-10 06:58] LABS: ALB/GLOB RATIO 0.8 (1.1-1.8); ALBUMIN 3.2 g/dL (3.0-4.8); BILIRUBIN,DIRECT 4.4 mg/dL (0.0-0.4); CALCIUM 9.3 mg/dL (8.4-10.5)
[2018-01-10] MEDS ORDERED: Midazolam 2 MG/2 ML VIAL IVP ONE ×3 (10:44→11:27)
[2018-01-10] MEDS: Sodium Chloride 0.45% 1,000 ML IV SCH ×3 (12:00→22:55)
--- NOTE | 2018-01-10 12:27 | CP.PCM.PN ---
Subjective - Date & Time of Evaluation Date of Evaluation: 01/10/18 Time of Evaluation: 09:00 - Subjective Subjective: Patient is for removal of left arm PICC line today, less abdominal pain, still feels weak and ill, no fevers. Objective - Vital Signs/Intake and Output Vital Signs (last 24 hours): Temp Pulse Resp BP Pulse Ox 98 F 111 H 11 L 105/72 99 01/10/18 06:00 01/10/18 08:50 01/10/18 08:50 01/10/18 08:00 01/10/18 08:50 Intake and Output: 01/10/18 01/10/18 06:59 18:59 Intake Total 2375 Output Total 2140 550 Balance 235 -550 - Medications Medications: Current Medications Acetaminophen (Tylenol 325mg Tab) 650 mg PO Q6H PRN PRN Reason: FEVER>=99.5F Acetaminophen (Tylenol 650 Mg Supp) 650 mg RC Q6H PRN PRN Reason: TEMP>=99.5F Amitriptyline HCl (Elavil) 25 mg PO HS [facility] Last Admin: 01/09/18 22:00 Dose: 25 mg Gabapentin (Neurontin) 400 mg PO TID [facility] PRN Reason: Protocol Last Admin: 01/09/18 17:39 Dose: 400 mg Heparin Sodium (Porcine) (Heparin) 5,000 units SC Q8 [facility] PRN Reason: Protocol Last Admin: 01/10/18 06:27 Dose: 5,000 units Hydromorphone HCl (Dilaudid) 2 mg IVP Q4H PRN PRN Reason: Pain, moderate (4-7) Last Admin: 01/10/18 06:30 Dose: 2 mg Sodium Chloride (Sodium Chloride 0.9%) 1,000 mls @ 150 mls/hr IV .Q6H40M [facility] Last Admin: 01/10/18 04:50 Dose: 150 mls/hr Meropenem 500 mg/ Sodium (Chloride) 50 mls @ 100 mls/hr IVPB 0200,1000,1800 [facility] PRN Reason: Protocol Stop: 01/13/18 18:01 Last Admin: 01/10/18 01:55 Dose: 100 mls/hr Midodrine (Proamatine) 2.5 mg PO TID [facility] Last Admin: 01/09/18 17:39 Dose: 2.5 mg Ondansetron HCl (Zofran Inj) 4 mg IVP Q4H PRN PRN Reason: Nausea/Vomiting Last Admin: 01/09/18 12:21 Dose: 4 mg Pantoprazole Sodium (Protonix Inj) 40 mg IVP DAILY [facility] Last Admin: 01/09/18 09:01 Dose: 40 mg Sodium Bicarbonate (Sodium Bicarbonate Tab) 650 mg PO BID [facility] Last Admin: 01/09/18 17:39 Dose: 650 mg - Labs Labs: 01/10/18 05:25 01/10/18 05:25 PT 14.3 SECONDS (9.4-12.5) H 01/08/18 08:50 INR 1.24 (0.93-1.08) H 01/08/18 08:50 APTT 38.3 Seconds (25.1-36.5) H 01/08/18 08:50 - Constitutional Appears: Cachectic, Chronically Ill - Head Exam Head Exam: NORMAL INSPECTION - Neck Exam Neck Exam: absent: Meningismus - Respiratory Exam Respiratory Exam: Decreased Breath Sounds - Cardiovascular Exam Cardiovascular Exam: +S1, +S2 - GI/Abdominal Exam GI & Abdominal Exam: Soft. absent: Tenderness Additional comments: PEG tube in place, right sided nephrostomy tube in place - Extremities Exam Additional comments: left arm PICC line in place Assessment and Plan - Assessment and Plan (Free Text) Plan: Assessment severe sepsis with acute on chronic renal failure due to Klebsiella bacteremia R /O PICC line-related infection, R/O UTI S/P sepsis S/P right sided pyelonephritis with associated cystitis, with persistent coagulase negative staph bacteremia probably port/ central line as the source S/P removal pneumobilia and elevated bilirubin, consider S/P cholecystectomy R/O choledocholethiasis carcinoma of GI tract S/P colectomy and ileostomy S/P nephrostomy tube placement on the right 2 years ago history of G-tube placement chronic renal failure Plan for removal of PICC line today and repeat blood cx after removal; reviewed CT A/ P which did not show acute pathology; follow up urine cx; continue Merrem and will recommend at least 2 weeks of antibiotics from time of PICC removal - may be able to de-escalate antibiotics to Cefazolin; follow up urine cx overall prognosis is poor
[2018-01-10] MEDS ORDERED: Lidocaine 2% Inj (20ml) IJ STA (13:46)
--- NOTE | 2018-01-10 14:50 | CP.PCM.PN ---
Subjective - Date & Time of Evaluation Date of Evaluation: 01/10/18 Time of Evaluation: 14:49 - Subjective Subjective: Nephrology Consultation Note: Assessment: critical PRANAV likely pre-renal state and hemoconcentration with sepsis (GNR) lactic acidosis with HAGMA Hematuria Hyperbili with abnormal LFT Anemia carcinoma of GI tract S/P colectomy and ileostomy, S/P Rt nephrostomy tube placement 2 years ago and change 1 month ago, history of G-tube placement Plan No acute need for renal replacement therapy at this time. Maintain hemodynamics stable. avoid hypotension. Patient not on ACEI/ARB due to PRANAV and low BP Monitor Input/Output, daily weights and renal function with basic metabolic panel supplements electrolytes as needed changed to IVF as 0.45% saline. ID, GI and urology involved added sodium bicarb 650 mg bid Dose meds/antibiotics for reduced GFR. Avoid nephrotoxins/NSAIDs/IV iodinated contrast (unless needed emergently). Avoid fleet enema/Magnesium based laxative. Glycemic control Further work up/management as per primary team Thanks for allowing me to participate in care of your patient. Will follow with you. Please call if any Qs. had d/w and team Dr Eric Oseguera Office: [phone] Reason for consult: PRANAV HPI: Pt is a 62 M with hx of carcinoma of GI tract S/P colectomy and ileostomy, S/P Rt nephrostomy tube placement 2 years ago, history of G-tube placement, on TPN at home presented with c/o bloody urine output from the nephrostomy tube and also worsening abdomen pain for last few days. overall symptoms worsening. renal consult for PRANAV. pt with lactic acidosis and hyperbilir as well. Denies OTC/herbal meds or NSAIDs No recent iodinated contrast exposure. Noted episode of low BP (96/52). ROS: feels better Cardiovascular: No chest pain. Pulmonary: No shortness of breath Gastrointestinal: improved abdominal pain denies nausea. No vomiting. Genitourinary: No pain while urinating. s/p nephrostomy tube change 01/10/18 All other negative except as in HPI Physical Examination: General Appearance: comfortable, in no acute respiratory distress, co-operative . ill appearing Vitals reviewed and noted as below Head; Atraumatic, normocephalic ENT: no ulcers no thrush. Tongue is midline/coated. Oropharynx: no rash or ulcers. EYES: Pupils are equal, round and reactive to light accommodation. Eye muscles and extraocular movement intact. Sclera is anicteric. Neck; supple no lymphadenopathy, no thyromegaly or bruit Lungs: Normal respiratory rate/effort. Breath sounds bilateral equal and clear Heart: Increased rate. s1s2 normal. No rub or gallop. Extremities: no edema. No varicose veins Neurological: Patient is sleepy post procedure today Skin: Warm and dry. Normal turgor. No rash. Palpitation: Normal elasticity for age Abdomen: Abdomen is soft. Bowel sounds +. There is no abdominal tenderness, no guarding/rigidity no organomegaly. has iletostomy and G tube Psych: normal insight and normal affect/mood MSK: no joint tenderness or swelling. Digits and nails normal, no deformity : kidney or bladder not palpable. has Rt nephrostomy tube draining clearer urine Labs/imaging reviewed. Past medical history, past surgical history, family history, social history, allergy reviewed and noted as below Family hx: no hx of CKD. Rest non-contributory renal imaging WNL Objective - Vital Signs/Intake and Output Vital Signs (last 24 hours): Temp Pulse Resp BP Pulse Ox 98 F 111 H 11 L 105/72 99 01/10/18 06:00 01/10/18 08:50 01/10/18 08:50 01/10/18 08:00 01/10/18 08:50 Intake and Output: 01/10/18 01/10/18 06:59 18:59 Intake Total 2375 Output Total 2140 550 Balance 235 -550 - Medications Medications: Current Medications Acetaminophen (Tylenol 325mg Tab) 650 mg PO Q6H PRN PRN Reason: FEVER>=99.5F Acetaminophen (Tylenol 650 Mg Supp) 650 mg RC Q6H PRN PRN Reason: TEMP>=99.5F Amitriptyline HCl (Elavil) 25 mg PO HS [facility] Last Admin: 01/09/18 22:00 Dose: 25 mg Gabapentin (Neurontin) 400 mg PO TID [facility] PRN Reason: Protocol Last Admin: 01/10/18 14:01 Dose: 400 mg Heparin Sodium (Porcine) (Heparin) 5,000 units SC Q8 [facility] PRN Reason: Protocol Last Admin: 01/10/18 14:01 Dose: 5,000 units Hydromorphone HCl (Dilaudid) 2 mg IVP Q4H PRN PRN Reason: Pain, moderate (4-7) Last Admin: 01/10/18 06:30 Dose: 2 mg Meropenem 500 mg/ Sodium (Chloride) 50 mls @ 100 mls/hr IVPB 0200,1000,1800 [facility] PRN Reason: Protocol Stop: 01/13/18 18:01 Last Admin: 01/10/18 10:15 Dose: 100 mls/hr Sodium Chloride (Sodium Chloride 0.45%) 1,000 mls @ 150 mls/hr IV .Q6H40M [facility] Last Admin: 01/10/18 12:00 Dose: 150 mls/hr Midodrine (Proamatine) 2.5 mg PO TID [facility] Last Admin: 01/10/18 14:01 Dose: 2.5 mg Ondansetron HCl (Zofran Inj) 4 mg IVP Q4H PRN PRN Reason: Nausea/Vomiting Last Admin: 01/09/18 12:21 Dose: 4 mg Pantoprazole Sodium (Protonix Inj) 40 mg IVP DAILY [facility] Last Admin: 01/10/18 09:41 Dose: 40 mg Sodium Bicarbonate (Sodium Bicarbonate Tab) 650 mg PO BID [facility] Last Admin: 01/10/18 09:41 Dose: 650 mg - Labs Labs: 01/10/18 05:25 01/10/18 05:25 PT 14.3 SECONDS (9.4-12.5) H 01/08/18 08:50 INR 1.24 (0.93-1.08) H 01/08/18 08:50 APTT 38.3 Seconds (25.1-36.5) H 01/08/18 08:50
--- NOTE | 2018-01-10 14:56 | VASCULAR ---
PROCEDURE: Ultrasound and fluoroscopic right internal jugular venous access port. CLINICAL HISTORY: Metastatic carcinoid.Venous port for chemotherapy. PHYSICIAN(S): Tim Calhoun M.D. TECHNIQUE: The relative risks and indications of the procedure were explained to the patient and consent obtained. The patient was placed supine on the arteriogram table and the right neck and chest prepped and draped in the usual sterile fashion. Conscious sedation monitoring was provided throughout the procedure by a nurse. Antibiotics were given prior to the procedure. Under direct ultrasound guidance, the right internal jugular vein was punctured with a micro-puncture set. A 0.035 angled Glidewire was advanced into the IVC. A 4 cm incision was made below the right clavicle and the pocket blunted dissected. A 8 [place] single-lumen catheter, 26 cm long, was advanced to the SVC/RA junction. The catheter was trimmed and attached to the port. The port aspirates and injects easily. The port was placed in the pocket and closed in 2 layers. The patient tolerated the procedure well. IMPRESSION: Ultrasound and fluoroscopically placed right internal jugular venous access port.
--- NOTE | 2018-01-10 14:58 | VASCULAR ---
PROCEDURE: 1. Right nephrostomy tube change HISTORY: Metastatic carcinoid. Right hydronephrosis. Chronic right nephrostomy tube. Needs change PHYSICIAN(S): Tim Calhoun MD. TECHNIQUE: The relative risks and indications of the procedure were explained to the patient and consent obtained. The patient was placed prone on the arteriogram table and the right nephrostomy tube site prepped and draped usual sterile fashion. Conscious sedation monitoring were provided throughout the procedure by a nurse. Contrast was injected and a right nephrostogram performed. 0.035 guidewire was coiled in the right renal pelvis. The old tube was removed. A new 12 Irish right nephrostomy tube was coiled in the right pelvis. Its position was confirmed with injection of contrast. The catheter was flushed and secured. The patient tolerated the procedure well. FINDINGS: There is mild to moderate right hydronephrosis. There is a tapered appearance to the right ureter as it crosses over the sacrum. Contrast fills into the normal appearing distal right ureter and bladder. The bladder is somewhat distorted by mass effect. Presumably this represents adenopathy in a pelvic mass related to the patient's carcinoid tumor. IMPRESSION: 1.Successful exchange for a new 12 Irish right nephrostomy tube
--- NOTE | 2018-01-10 15:01 | PN ---
DATE: 01/10/2018 LOCATION: The patient is in ICU, bed 1. SUBJECTIVE: The patient is seen on 01/10/2018. Patient is lying in bed. Overnight nurse's notes were reviewed. The patient had a right percutaneous nephrostomy draining, positive left lower quadrant ileostomy, positive gastrostomy draining. No adverse events documented by the nurses overnight. PHYSICAL EXAMINATION: VITAL SIGNS: T-max 98.7, respiration 16 to 24, heart rate sinus tach 115, O2 sat 99 to 100%. Blood pressure 114/70. HEENT: Head is normocephalic, atraumatic. HEENT examination shows pinkish pale conjunctivae. Anicteric sclerae. No oropharyngeal lesion. No neck rigidity. CHEST: Kyphosis. LUNGS: Shows questionable decreased breath sound at the left base. CARDIOVASCULAR: Examination S1, S2, tachycardic rhythm. Positive . Questionable soft systolic murmur, left sternal border, right second intercostal space. ABDOMEN: Shows positive right flank percutaneous nephrostomy. Positive left lower quadrant ileostomy. Positive gastrostomy. GENITALIA: Male. EXTREMITIES: Shows no pitting edema, no calf tenderness, no Homans' sign. NEUROLOGICAL: The patient is alert, awake, responsive, is able to move upper and lower extremity without assistance. Gait examination could not be tested. MUSCULOSKELETAL: Shows a decreased muscle mass with cachexia. PSYCHIATRIC: Not applicable. DIAGNOSTICS: On 01/10, WBC 23.5, hemoglobin and hematocrit has dropped to 9.9 and 29.8, platelets 192, 83% segs. Sodium 148, potassium 4, chloride 114, CO2 21, BUN 49, creatinine 1.6, GFR 44, glucose 89, lactic acid 1.3, total bilirubin 5.3, direct bilirubin 4.4, AST 75, ALT 75, alkaline phosphatase 433. Renal ultrasound negative for any pathology. Blood cultures from admission, gram-negative rods. The patient seen by Infectious Disease, Cardiology, Nephrology, Urology, Gastroenterology, their recommendations noted. IMPRESSION AND PLAN: 1. Severe sepsis secondary to gram-negative veena bacteremia probably secondary to left upper extremity PICC line placement. 2. Status post left upper extremity PICC line removal and right upper chest Port-A-Cath removal. 3. Advanced gastrointestinal carcinoid tumor. 4. Tachycardia. 5. Hypotension. 6. Questionable septic shock. 7. Questionable multiple organ dysfunction syndrome. 8. Right percutaneous nephrostomy. 9. Status post ileostomy and gastrostomy tube feeding. 10. Feeding dysfunction with chronic hyperalimentation. 11. Leukocytosis with granulocytosis and bandemia. 12. Normocytic anemia. 13. Acute renal failure and acute kidney injury (resolving). 14. High anion gap and increased anion gap metabolic acidosis with lactic acidosis. 15. Obstructive jaundice with hyperbilirubinemia and transaminitis. 16. Hypotension. 17. Chronic narcotic-dependent pain syndrome of malignancy. 18. Neuropathy. 19. Cachexia of malignancy. 20. Deconditioning. 21. Recurrent bacteremia and sepsis. 22. Malnutrition. PLAN AT THIS TIME: The patient is to be continued on the therapeutic intervention as per the MAR. The patient will be continued on IV fluid as per Nephrology recommendation, IV antibiotics as per Infectious Disease recommendation. The patient will be continued on IV analgesia for pain control. The patient's GI recommendations were noted. The patient's renal function is improving. The patient will be continued on IV antibiotics. The patient will be continued on GI, DVT prophylaxis. The patient's and the family was attempted to be contacted, but both numbers are not working and there was no response from the phone number listed on the patient's demographic sheet. The patient's case is also referred to Palliative Care to Loyda Marinelli, their recommendations are awaited. CONSULTATION: 1. Cardiology. 2. Infectious Disease. 3. Nephrology. 4. Interventional Radiology. Overall prognosis, extremely guarded to poor, patient aware. Time spent in the entire management more than 35 minutes. Plan at this time, the patient has been ordered serial labs. The patient's electrolytes and CBC and other labs will be monitored. If the patient needs transfusion of PRBC, patient will be transfused to keep hemoglobin around 10 g. Dictated and electronically signed, not read. Sergio Wagner MD
--- NOTE | 2018-01-10 15:21 | PN ---
DATE: 01/10/[address] Tim Salcido. SUBJECTIVE: The patient is currently in the cardiac cath lab nurse to have replacement of his nephrostomy tube as well as decline placement. He denies any chest pain or shortness of breath. OBJECTIVE: VITAL SIGNS: Blood pressure 105/72, heart rate 110, respirations 17, temperature 98. HEENT: The patient has temporal wasting. CHEST: Clear. HEART: Sounds regular. ABDOMEN: Soft. EXTREMITIES: No edema. LABORATORY DATA: Hemoglobin and hematocrit 9.9 and 29.8, white count 23.5 and platelet count 192,000. SMA-7: Sodium 148, potassium 4, chloride 115, CO2 21, glucose 89. BUN 49, creatinine 1.6. Today's lactic acid is within normal limit at 1.3. Today's alkaline phosphatase is 433, more elevated compared to yesterday. Today's EKG revealed sinus tachycardia at rate of 114. ASSESSMENT: 1. Sepsis. 2. Elevated troponin. 3. Renal insufficiency. 4. Anemia. 5. Status post right nephrostomy draining hemorrhagic urine. 6. History of colon cancer, status post colectomy and ileostomy. RECOMMENDATIONS: Continue current IV Dilaudid p.r.n. , subcutaneous heparin 5000 units every 8 hours, IV meropenem at 500 mg intravenous every 8 hours, ProAmatine 2.5 mg t.i.d., Zofran 4 mg intravenously every 4 hours p.r.n. The most recent SUSIE last month revealed no vegetation. Carlos A Isidro MD
--- NOTE | 2018-01-10 16:31 | CARD ---
APPROVED REPORT EKG Measurement Heart [id number] <Conclusion> Sinus tachycardia Otherwise normal ECG
--- NOTE | 2018-01-10 22:46 | PCM.URO ---
Urology Progress Note - Objective Lab Results Last 24 Hours: Laboratory Results - last 24 hr 01/10/18 01/10/18 01/10/18 05:25 05:25 05:25 WBC 23.5 H RBC 3.36 L Hgb 9.9 L Hct 29.8 L MCV 88.7 MCH 29.5 MCHC 33.2 RDW 16.8 H Plt Count 192 MPV 13.1 H Gran % 83.1 H Lymph % (Auto) 5.9 L [place] % (Auto) 10.9 H Eos % (Auto) 0.1 L Baso % (Auto) 0.0 Gran # 19.55 H Lymph # (Auto) 1.4 [place] # (Auto) 2.6 H Eos # (Auto) 0.0 Baso # (Auto) 0.01 Sodium 148 Potassium 4.0 Chloride 114 H Carbon Dioxide 21 Anion Gap 16 BUN 49 H Creatinine 1.6 H Est GFR ( Amer) 54 Est GFR (Non-Af Amer) 44 Random Glucose 89 Lactic Acid 1.3 Calcium 9.3 Phosphorus 3.1 Magnesium 2.2 Total Bilirubin 5.3 H Direct Bilirubin 4.4 H AST 75 H ALT 75 H Alkaline Phosphatase 433 H D Total Protein 7.3 Albumin 3.2 Globulin 4.1 Albumin/Globulin Ratio 0.8 L Intake & Output: Intake & Output 01/10/18 01/10/18 01/11/18 06:59 18:59 06:59 Intake Total 2375 2520 Output Total 2140 2360 Balance 235 160 Weight 136 lb 136 lb Intake: IV 1325 1800 Left Hand 1325 1800 Oral 1000 720 Tube Feeding 0 TPN/PPN 0 Blood Product 0 Lipid 0 Albumin 0 Other 50 Output: Gastric Amount 2000 1350 Stomach 2000 1350 Drainage 140 110 Left Lower Abdomen 30 10 Right Back 110 100 Urine 0 900 Urine, Voided 0 900 Stool 0 Urine/Stool Mix 0 Emesis 0 Oral Regurgitation 0 Other 0 Other: # Voids Urine, Voided 0 2 # Bowel Movements 0 0 Vital Signs: Vital Signs - 24 hr 01/09/18 01/09/18 01/09/18 22:50 22:55 23:00 Temperature Pulse Rate 122 H 122 H Respiratory 7 L 8 L Rate Blood Pressure 107/70 O2 Sat by Pulse 97 97 96 Oximetry 01/09/18 01/09/18 01/09/18 23:10 23:20 23:30 Temperature Pulse Rate 116 H 119 H 119 H Respiratory 10 L 8 L 8 L Rate Blood Pressure O2 Sat by Pulse 99 99 99 Oximetry 01/09/18 01/09/18 01/09/18 23:40 23:43 23:45 Temperature 97.9 F Pulse Rate 119 H 117 H 119 H Respiratory 8 L 11 L Rate Blood Pressure 107/70 O2 Sat by Pulse 99 99 Oximetry 01/09/18 01/09/18 01/10/18 23:50 23:59 00:00 Temperature Pulse Rate 127 H 110 H 111 H Respiratory 7 L 9 L Rate Blood Pressure 111/78 O2 Sat by Pulse 99 100 100 Oximetry 01/10/18 01/10/18 01/10/18 00:10 00:20 00:30 Temperature Pulse Rate 114 H 115 H 115 H Respiratory 7 L 7 L 9 L Rate Blood Pressure O2 Sat by Pulse 99 99 99 Oximetry 01/10/18 01/10/18 01/10/18 00:40 00:50 01:00 Temperature Pulse Rate 109 H 112 H 113 H Respiratory 10 L 8 L 8 L Rate Blood Pressure 107/70 O2 Sat by Pulse 99 99 98 Oximetry 01/10/18 01/10/18 01/10/18 01:10 01:20 01:30 Temperature Pulse Rate 113 H 117 H 115 H Respiratory 9 L 8 L 10 L Rate Blood Pressure O2 Sat by Pulse 99 99 99 Oximetry 01/10/18 01/10/18 01/10/18 01:40 01:50 02:00 Temperature Pulse Rate 114 H 105 H 104 H Respiratory 13 48 H 66 H Rate Blood Pressure 107/67 O2 Sat by Pulse 99 100 100 Oximetry 01/10/18 01/10/18 01/10/18 02:10 02:20 02:30 Temperature Pulse Rate 108 H 112 H 106 H Respiratory 106 H 52 H 16 Rate Blood Pressure O2 Sat by Pulse 99 99 99 Oximetry 01/10/18 01/10/18 01/10/18 02:40 02:50 03:00 Temperature Pulse Rate 110 H 109 H 110 H Respiratory 16 15 12 Rate Blood Pressure 95/57 L O2 Sat by Pulse 99 99 98 Oximetry 01/10/18 01/10/18 01/10/18 03:10 03:20 03:30 Temperature Pulse Rate 106 H 109 H 108 H Respiratory 13 11 L 10 L Rate Blood Pressure O2 Sat by Pulse 99 99 99 Oximetry 01/10/18 01/10/18 01/10/18 03:40 03:50 04:00 Temperature Pulse Rate 107 H 107 H 106 H Respiratory 12 14 13 Rate Blood Pressure 112/76 O2 Sat by Pulse 99 99 100 Oximetry 01/10/18 01/10/18 01/10/18 04:08 04:10 04:20 Temperature Pulse Rate 115 H 114 H 105 H Respiratory 21 Rate Blood Pressure O2 Sat by Pulse 100 100 Oximetry 01/10/18 01/10/18 01/10/18 04:30 04:40 04:50 Temperature Pulse Rate 107 H 104 H 110 H Respiratory 12 13 14 Rate Blood Pressure O2 Sat by Pulse 100 100 99 Oximetry 01/10/18 01/10/18 01/10/18 05:00 05:10 05:13 Temperature Pulse Rate 103 H 105 H 120 H Respiratory 14 16 Rate Blood Pressure 114/79 O2 Sat by Pulse 100 100 Oximetry 01/10/18 01/10/18 01/10/18 05:20 05:30 05:40 Temperature Pulse Rate 109 H 109 H 114 H Respiratory 16 15 19 Rate Blood Pressure O2 Sat by Pulse Oximetry 01/10/18 01/10/18 01/10/18 05:50 06:00 06:10 Temperature 98 F Pulse Rate 112 H 111 H 122 H Respiratory 12 15 102 H Rate Blood Pressure 113/71 O2 Sat by Pulse 100 Oximetry 01/10/18 01/10/18 01/10/18 06:11 06:20 06:30 Temperature Pulse Rate 115 H 113 H 112 H Respiratory 24 15 17 Rate Blood Pressure 113/71 O2 Sat by Pulse 99 99 99 Oximetry 01/10/18 01/10/18 01/10/18 06:40 06:50 07:00 Temperature Pulse Rate 111 H 115 H 120 H Respiratory 16 8 L 12 Rate Blood Pressure 105/69 O2 Sat by Pulse 99 100 98 Oximetry 01/10/18 01/10/18 01/10/18 07:10 07:20 07:30 Temperature Pulse Rate 115 H 108 H Respiratory 11 L 14 12 Rate Blood Pressure O2 Sat by Pulse 99 97 99 Oximetry 01/10/18 01/10/18 01/10/18 07:40 07:50 08:00 Temperature Pulse Rate 115 H 109 H 110 H Respiratory 19 12 17 Rate Blood Pressure 105/72 O2 Sat by Pulse 95 99 100 Oximetry 01/10/18 01/10/18 01/10/18 08:10 08:20 08:30 Temperature Pulse Rate 119 H 113 H 120 H Respiratory 17 10 L 15 Rate Blood Pressure O2 Sat by Pulse 100 99 100 Oximetry 01/10/18 01/10/18 01/10/18 08:40 08:50 09:00 Temperature Pulse Rate 112 H 111 H 116 H Respiratory 9 L 11 L 10 L Rate Blood Pressure 108/67 O2 Sat by Pulse 99 99 99 Oximetry 01/10/18 01/10/18 01/10/18 09:10 09:20 09:30 Temperature Pulse Rate 114 H 117 H 119 H Respiratory 9 L 8 L 15 Rate Blood Pressure O2 Sat by Pulse 100 99 100 Oximetry 01/10/18 01/10/18 01/10/18 09:37 09:40 09:50 Temperature Pulse Rate 125 H 117 H 111 H Respiratory 12 19 9 L Rate Blood Pressure O2 Sat by Pulse 98 100 Oximetry 01/10/18 01/10/18 01/10/18 10:00 12:10 12:16 Temperature Pulse Rate 117 H 129 H 129 H Respiratory 11 L Rate Blood Pressure 125/84 128/78 O2 Sat by Pulse 99 100 Oximetry 01/10/18 01/10/18 01/10/18 12:20 12:30 12:40 Temperature Pulse Rate 127 H 128 H 129 H Respiratory 13 8 L 12 Rate Blood Pressure O2 Sat by Pulse 99 99 99 Oximetry 01/10/18 01/10/18 01/10/18 12:50 13:00 13:10 Temperature Pulse Rate 129 H 129 H 126 H Respiratory 12 15 12 Rate Blood Pressure 106/70 O2 Sat by Pulse 98 98 98 Oximetry 01/10/18 01/10/18 01/10/18 13:20 13:30 13:40 Temperature Pulse Rate 125 H 126 H 125 H Respiratory 9 L 9 L 12 Rate Blood Pressure O2 Sat by Pulse 99 99 99 Oximetry 01/10/18 01/10/18 01/10/18 13:50 14:00 14:10 Temperature Pulse Rate 124 H 121 H 118 H Respiratory 11 L 14 14 Rate Blood Pressure 113/75 O2 Sat by Pulse 99 99 100 Oximetry 01/10/18 01/10/18 01/10/18 14:20 14:30 14:40 Temperature Pulse Rate 119 H 119 H 119 H Respiratory 12 10 L 9 L Rate Blood Pressure O2 Sat by Pulse 100 100 100 Oximetry 01/10/18 01/10/18 01/10/18 14:50 15:00 15:10 Temperature Pulse Rate 118 H 118 H 116 H Respiratory 9 L 15 15 Rate Blood Pressure 111/77 O2 Sat by Pulse 100 98 100 Oximetry 01/10/18 01/10/18 01/10/18 15:20 15:30 15:40 Temperature Pulse Rate 111 H 114 H 117 H Respiratory 11 L 11 L 10 L Rate Blood Pressure O2 Sat by Pulse 100 100 100 Oximetry 01/10/18 01/10/18 01/10/18 15:50 16:00 16:10 Temperature Pulse Rate 115 H 115 H 117 H Respiratory 12 13 15 Rate Blood Pressure 118/71 O2 Sat by Pulse 100 100 100 Oximetry 01/10/18 01/10/18 01/10/18 16:20 16:30 16:40 Temperature Pulse Rate 116 H 114 H 112 H Respiratory 14 12 14 Rate Blood Pressure O2 Sat by Pulse 100 100 100 Oximetry 01/10/18 01/10/18 01/10/18 16:50 17:00 17:10 Temperature Pulse Rate 113 H 111 H 126 H Respiratory 16 12 Rate Blood Pressure 125/72 O2 Sat by Pulse 100 100 100 Oximetry 01/10/18 01/10/18 01/10/18 17:20 17:30 17:38 Temperature Pulse Rate 122 H 125 H 124 H Respiratory 17 17 Rate Blood Pressure O2 Sat by Pulse 100 88 L Oximetry 01/10/18 21:48 Temperature Pulse Rate 110 H Respiratory Rate Blood Pressure 102/53 L O2 Sat by Pulse Oximetry
[2018-01-11] MEDS: HYDROmorphone 2 mg/ml ISec IVP PRN ×5 (01:32→21:53)
[2018-01-11] MEDS: Meropenem 500 MG in Sodium Chloride 0.9% 50 ML IVPB SCH (02:28)
[2018-01-11] MEDS: Sodium Chloride 0.45% 1,000 ML IV SCH ×2 (06:34→12:29)
[2018-01-11 06:52] LABS: BASO # 0.01 K/mm3 (0.0-2.0); BASO % 0.1 % (0.0-3.0); EOS # 0.1 (0.0-0.7); EOS % 0.4 % (1.5-5.0); GRAN # 16.69 (1.4-6.5); HEMOGLOBIN 8.8 g/dL (14.0-18.0); LYMPH # 0.9 (1.2-3.4); LYMPH % 4.3 % (22.0-35.0); MEAN CORPUSCULAR HEMOGLOBIN 29.4 pg (25.0-35.0); MEAN CORPUSCULAR HGB CONC 33.5 g/dl (31.0-37.0); MEAN PLATELET VOLUME 13.7 fl (7.0-11.0); MONO # 2.2 (0.1-0.6); MONO % 11.2 % (1.0-6.0); RBC 2.99 10^6/uL (3.5-6.1); RED CELL DISTRIBUTION WIDTH 16.5 % (11.5-14.5); WHITE BLOOD COUNT 19.9 10^3/ul (4.5-11.0)
[2018-01-11 07:05] LABS: ALB/GLOB RATIO 0.8 (1.1-1.8); ALBUMIN 2.7 g/dL (3.0-4.8); ALT/SGPT 73 U/L (7-56); AST/SGOT 80 U/L (17-59); BILIRUBIN,DIRECT 5.1 mg/dL (0.0-0.4); BLOOD UREA NITROGEN 45 mg/dL (7-21); CALCIUM 9.2 mg/dL (8.4-10.5); GFR AFRICAN-AMERICAN > 60; GFR NON-AFRICAN AMERICAN 52
[2018-01-11] MEDS: Sodium Chloride 0.9% 1,000 ML IV SCH (07:17)
--- NOTE | 2018-01-11 08:31 | CP.PCM.PN ---
Subjective - Date & Time of Evaluation Date of Evaluation: 01/11/18 Time of Evaluation: 06:00 - Subjective Subjective: Patient seen and evaluated bedside. No acute issues overnight. Patient states he does not feel well. Patient complaining of diffuse pain over the body but states he is not nauseas. Patient denies chest pain, shortness of breath, or any other complaints at this time. Objective - Vital Signs/Intake and Output Vital Signs (last 24 hours): Temp Pulse Resp BP Pulse Ox 98.2 F 107 H 9 L 91/61 L 100 01/11/18 05:00 01/11/18 08:28 01/11/18 07:10 01/11/18 07:00 01/11/18 07:10 Intake and Output: 01/11/18 01/11/18 06:59 18:59 Intake Total 2495 Output Total 2500 Balance -5 - Medications Medications: Current Medications Acetaminophen (Tylenol 325mg Tab) 650 mg PO Q6H PRN PRN Reason: FEVER>=99.5F Acetaminophen (Tylenol 650 Mg Supp) 650 mg RC Q6H PRN PRN Reason: TEMP>=99.5F Amitriptyline HCl (Elavil) 25 mg PO HS TAMMY Last Admin: 01/10/18 21:53 Dose: 25 mg Gabapentin (Neurontin) 400 mg PO TID TAMMY PRN Reason: Protocol Last Admin: 01/10/18 17:20 Dose: 400 mg Heparin Sodium (Porcine) (Heparin) 5,000 units SC Q8 TAMMY PRN Reason: Protocol Last Admin: 01/11/18 06:34 Dose: 5,000 units Hydromorphone HCl (Dilaudid) 2 mg IVP Q4H PRN PRN Reason: Pain, moderate (4-7) Last Admin: 01/11/18 06:41 Dose: 2 mg Meropenem 500 mg/ Sodium (Chloride) 50 mls @ 100 mls/hr IVPB 0200,1000,1800 TAMMY PRN Reason: Protocol Stop: 01/13/18 18:01 Last Admin: 01/11/18 02:28 Dose: 100 mls/hr Sodium Chloride (Sodium Chloride 0.45%) 1,000 mls @ 150 mls/hr IV .Q6H40M [facility] Last Admin: 01/11/18 06:34 Dose: 150 mls/hr Fluconazole 100 mg/ (Miscellaneous) 50 mls @ 100 mls/hr IVPB DAILY [facility] PRN Reason: Protocol Metoprolol Tartrate (Lopressor) 12.5 mg PO BID [facility] Last Admin: 01/10/18 21:48 Dose: 12.5 mg Midodrine (Proamatine) 5 mg PO TID [facility] Last Admin: 01/11/18 06:35 Dose: 5 mg Ondansetron HCl (Zofran Inj) 4 mg IVP Q4H PRN PRN Reason: Nausea/Vomiting Last Admin: 01/09/18 12:21 Dose: 4 mg Pantoprazole Sodium (Protonix Inj) 40 mg IVP DAILY [facility] Last Admin: 01/10/18 09:41 Dose: 40 mg Sodium Bicarbonate (Sodium Bicarbonate Tab) 650 mg PO BID [facility] Last Admin: 01/10/18 17:20 Dose: 650 mg - Labs Labs: 01/11/18 05:40 01/11/18 05:40 PT 14.3 SECONDS (9.4-12.5) H 01/08/18 08:50 INR 1.24 (0.93-1.08) H 01/08/18 08:50 APTT 38.3 Seconds (25.1-36.5) H 01/08/18 08:50 - Constitutional Appears: No Acute Distress, Cachectic - Head Exam Head Exam: ATRAUMATIC, NORMAL INSPECTION, NORMOCEPHALIC - Eye Exam Eye Exam: EOMI, Normal appearance - ENT Exam ENT Exam: Mucous Membranes Moist - Respiratory Exam Respiratory Exam: Clear to Ausculation Bilateral, NORMAL BREATHING PATTERN - Cardiovascular Exam Cardiovascular Exam: Tachycardia - GI/Abdominal Exam GI & Abdominal Exam: Soft Additional comments: colectomy bag - Extremities Exam Extremities Exam: absent: Pedal Edema - Neurological Exam Neurological Exam: Alert, Awake, Oriented x3 Assessment and Plan - Assessment and Plan (Free Text) Assessment: 62 year old male with PMHx of carcinoid tumor diagnosed 4 years ago s/p colectomy, ileostomy, right sided nephrostomy tube, recently discharged from the hospital for sepsis from pyelonephritis/cystitis, PEG tube with chronic bowel obstruction and PICC line on TPN, now presents to the hospital for near syncope. Found to have sepsis in the ED (hypotensive, tachycardic, and elevated lactate). Plan: 1. Sepsis -afebrile -WBC 19.9 -ID consulted -follow up urine cx, continue Merrem, recommend at least 2 weeks of antibiotics from time of PICC removal - may be able to de-escalate antibiotics to Cefazolin -intial Blood cultures showing gram negative rods, repeat showing no growth currently -likely secondary from PICC line, which was removed -BP 91/61, tachycardic 2. Anemia -Hgb: 8.8 -continue to monitor -type and cross, 2 Units PRBC on hold, will transfuse if Hgb<8 3. Elevated Liver Enzymes and Elevated Bilirubin -continue to trend -CT abdomen/pelvis: no acute intrabdominal findings -GI Olivo consulted, follow recs -T bili elevated to 6.1, direct; 5.1 -ast, alt TRENDING UP 4. Carcinoid Tumor-chronic -palliative care consult -pain medications -right chemo cath placed yesterday -will start TPN tomorrow 5. PRANAV -nephro consulted, Oumar, follow recs -continue fluids -urology consulted for nephrostomy tube bleeding -sodium bicarb 6. Hypotension-chronic -continue to monitor -continue home meds PPX: GI: protonix DVT: heparin SC Physical Therapy pending, OOB to chair TCU evaluation Patient seen and discussed with attending Dr. Wagner
[2018-01-11] MEDS ORDERED: Fluconazole IV 200mg/100 ml NS 100 ML IVPB ONE (09:40)
[2018-01-11] MEDS: Fluconazole IV 200mg/100 ml NS 100 MG in Premixed IV 1 EA IVPB SCH (09:40)
[2018-01-11] MEDS: ceFAZolin 2 GM in Sodium Chloride 0.9% 100 ML IVPB SCH ×3 (09:59→21:40)
--- NOTE | 2018-01-11 10:12 | CP.PCM.CON ---
History of Present Illness - History of Present Illness History of Present Illness: Palliative consult requested by Dr Jessenia Wagner Reason: Goals of care and advance care planning 62 year old male with history of carcinoid tumor of colon, chronic bowel obstruction s/p colectomy, s/p ileostomy,right nephrostomy who presented to the ED with syncope. He was also hypotensive, tachycardic on presentation. Lactate elevated,code sepsis, called. The patient was recently discharged form the hospital after being treated for pyelonephritis and chronic bowl obstruction. PMHx: carcinoid tumor, chronic bowel obstruction s/p colectomy, ileostomy, pyelonephritis, right nephrostomy tube, G Tube, chronic bowel obstruction Social History: Non smoker, no alcohol or drug use. Lives with his and children Family History: Non contributing. Advance Care Planning: The patient does not have an Advanced Directive Review of Systems: The patient complains of weakness,and occasional body pain, he has had no other syncopal episodes,12 point review otherwise negative. Past Patient History - Infectious Disease Hx of Infectious Diseases: None - Tetanus Immunizations Tetanus Immunization: Unknown - Past Social History Smoking Status: Never Smoked - CARDIAC Hx Cardiac Disorders: No - PULMONARY Hx Respiratory Disorders: No - NEUROLOGICAL Hx Neurological Disorder: No - HEENT Hx HEENT Problems: No - RENAL Hx Chronic Kidney Disease: Yes Other/Comment: HAS UROSTOMY - ENDOCRINE/METABOLIC Hx Endocrine Disorders: No - HEMATOLOGICAL/ONCOLOGICAL Hx Cancer: Yes (Gastric; colon) - INTEGUMENTARY Hx Dermatological Problems: No - MUSCULOSKELETAL/RHEUMATOLOGICAL Hx Falls: Yes - GASTROINTESTINAL Hx Gastrointestinal Disorders: Yes Hx Ileostomy: Yes Other/Comment: L colostomy. G tube - GENITOURINARY/GYNECOLOGICAL Hx Genitourinary Disorders: Yes Other/Comment: HAS UROSTOMY - PSYCHIATRIC Hx Psychophysiologic Disorder: No - SURGICAL HISTORY Hx Surgeries: Yes Other/Comment: COLOSTOMY, PEG TUBE, UROSTOMY - ANESTHESIA Hx Anesthesia Reactions: No Hx Malignant Hyperthermia: No Meds Allergies/Adverse Reactions: Allergies Allergy/AdvReac Type Severity Reaction Status Date / Time morphine Allergy ANAPHYLAXIS Verified 12/08/17 19:18 - Medications Medications: Current Medications Acetaminophen (Tylenol 325mg Tab) 650 mg PO Q6H PRN PRN Reason: FEVER>=99.5F Acetaminophen (Tylenol 650 Mg Supp) 650 mg RC Q6H PRN PRN Reason: TEMP>=99.5F Amitriptyline HCl (Elavil) 25 mg PO HS [facility] Last Admin: 01/10/18 21:53 Dose: 25 mg Gabapentin (Neurontin) 400 mg PO TID [facility] PRN Reason: Protocol Last Admin: 01/11/18 09:41 Dose: 400 mg Heparin Sodium (Porcine) (Heparin) 5,000 units SC Q8 [facility] PRN Reason: Protocol Last Admin: 01/11/18 06:34 Dose: 5,000 units Hydromorphone HCl (Dilaudid) 2 mg IVP Q4H PRN PRN Reason: Pain, moderate (4-7) Last Admin: 01/11/18 06:41 Dose: 2 mg Sodium Chloride (Sodium Chloride 0.45%) 1,000 mls @ 150 mls/hr IV .Q6H40M [facility] Last Admin: 01/11/18 06:34 Dose: 150 mls/hr Fluconazole 100 mg/ (Miscellaneous) 50 mls @ 100 mls/hr IVPB DAILY [facility] PRN Reason: Protocol Last Admin: 01/11/18 09:40 Dose: 100 mls/hr Cefazolin Sodium 2 gm/ Sodium (Chloride) 100 mls @ 200 mls/hr IVPB Q8 [facility] PRN Reason: Protocol Last Admin: 01/11/18 09:59 Dose: 200 mls/hr Metoprolol Tartrate (Lopressor) 12.5 mg PO BID [facility] Last Admin: 01/11/18 09:41 Dose: 12.5 mg Midodrine (Proamatine) 5 mg PO TID [facility] Last Admin: 01/11/18 09:41 Dose: 5 mg Ondansetron HCl (Zofran Inj) 4 mg IVP Q4H PRN PRN Reason: Nausea/Vomiting Last Admin: 01/09/18 12:21 Dose: 4 mg Pantoprazole Sodium (Protonix Inj) 40 mg IVP DAILY [facility] Last Admin: 01/11/18 09:40 Dose: 40 mg Sodium Bicarbonate (Sodium Bicarbonate Tab) 650 mg PO BID [facility] Last Admin: 01/11/18 09:41 Dose: 650 mg Physical Exam - Constitutional Appears: Cachectic, Chronically Ill - Head Exam Head Exam: NORMOCEPHALIC - Eye Exam Eye Exam: Normal appearance, PERRL - ENT Exam ENT Exam: Mucous Membranes Moist, Normal Oropharynx - Neck Exam Neck exam: Positive for: Normal Inspection - Respiratory Exam Respiratory Exam: Clear to Auscultation Bilateral, NORMAL BREATHING PATTERN - Cardiovascular Exam Cardiovascular Exam: REGULAR RHYTHM, +S1, +S2 - GI/Abdominal Exam GI & Abdominal Exam: Normal Bowel Sounds Additional comments: ileostomy patent, PEG patent - Exam Additional comments: right ileostomy tube draining blod tinged urine - Back Exam Back exam: NORMAL INSPECTION - Neurological Exam Neurological exam: Alert, Oriented x3 - Psychiatric Exam Psychiatric exam: Normal Mood - Skin Skin Exam: Dry, Warm - Additional Findings Additional findings: palliative performance scale rating 605 Results - Vital Signs Recent Vital Signs: Last Vital Signs Temp 98.2 F 01/11/18 05:00 Pulse 107 H 01/11/18 08:28 Resp 9 L 01/11/18 07:10 BP 91/61 L 01/11/18 07:00 Pulse Ox 100 01/11/18 07:10 - Labs Result Diagrams: 01/11/18 05:40 01/11/18 05:40 Labs: Laboratory Results - last 24 hr 01/11/18 01/11/18 01/11/18 05:40 05:40 05:40 WBC 19.9 H RBC 2.99 L Hgb 8.8 L Hct 26.3 L MCV 88.0 MCH 29.4 MCHC 33.5 RDW 16.5 H Plt Count 199 MPV 13.7 H Gran % 84.0 H Lymph % (Auto) 4.3 L [place] % (Auto) 11.2 H Eos % (Auto) 0.4 L Baso % (Auto) 0.1 Gran # 16.69 H Lymph # (Auto) 0.9 L [place] # (Auto) 2.2 H Eos # (Auto) 0.1 Baso # (Auto) 0.01 Sodium 142 Potassium 3.9 Chloride 110 H Carbon Dioxide 19 L Anion Gap 17 BUN 45 H Creatinine 1.4 Est GFR ( Amer) > 60 Est GFR (Non-Af Amer) 52 Random Glucose 68 L Lactic Acid 0.9 Calcium 9.2 Phosphorus 3.2 Magnesium 2.1 Total Bilirubin 6.1 H Direct Bilirubin 5.1 H AST 80 H ALT 73 H Alkaline Phosphatase 483 H Total Protein 6.4 Albumin 2.7 L Globulin 3.6 Albumin/Globulin Ratio 0.8 L Assessment & Plan - Assessment and Plan (Free Text) Assessment: 62 year old male with history of carcinoid cancer, bowel obstruction, s/p ileostomy, right nephrostomy who was admitted with syncope,sepsis, PRANAV, dehydration, pain, elevated LFT's and bacteremia The patient is alert and oriented. He is aware of the reason for this admission as well as his other comorbid conditions. He states that he is receiving cancer treatment at the [facility]. He intends to go home when medically stable. He intends to follow up with his oncologist and will continue treatment for as long as he is able to do so. His and children are supportive. He states he is able to perform most ADL's with minimal assistance. He describes having diffuse body pain which does not have any exacerbating factors. He received IV Dilaudid and states that his pain is relieved. Patient expressed concern over the cost of future medical needs. He is applying for medicaid because he feels he will need more services as time goes on. Advance care planning discussion followed. We specifically discussed resuscitation wishes. Benefits and burdens of CPR/intubation explained. Questions answered. The patient states he is unsure of what he wants. The patient would prefer we have this discussion when his is present. I am in agreement and will call his to set up a a fault meeting. Psychosocial support provided. Time spent in goals of care and advance care planning with patient, 30 minutes Plan: GI, ID, Urology and Renal notes reviewed. Syncope/dehydration resolved. Pain: Continue Dilaudid 2 mg IV as needed PRANAV: Monitor renal functions. Maintain IVF at 0.45% NS Bacteremia: Continue Merrem.Repeat blood / urine cultures. Goals of care and advance care planning
--- NOTE | 2018-01-11 10:20 | CP.PCM.PN ---
Subjective - Date & Time of Evaluation Date of Evaluation: 01/11/18 Time of Evaluation: 09:50 - Subjective Subjective: Had nephrostomy tube replaced, PICC line removed and new central venous catheter on Right internal jugular vein placed yesterday, still having soreness at the Right IJ site, still feels weak, no fevers. Objective - Vital Signs/Intake and Output Vital Signs (last 24 hours): Temp Pulse Resp BP Pulse Ox 98.2 F 107 H 9 L 91/61 L 100 01/11/18 05:00 01/11/18 08:28 01/11/18 07:10 01/11/18 07:00 01/11/18 07:10 Intake and Output: 01/11/18 01/11/18 06:59 18:59 Intake Total 2495 Output Total 2500 Balance -5 - Medications Medications: Current Medications Acetaminophen (Tylenol 325mg Tab) 650 mg PO Q6H PRN PRN Reason: FEVER>=99.5F Acetaminophen (Tylenol 650 Mg Supp) 650 mg RC Q6H PRN PRN Reason: TEMP>=99.5F Amitriptyline HCl (Elavil) 25 mg PO HS [facility] Last Admin: 01/10/18 21:53 Dose: 25 mg Gabapentin (Neurontin) 400 mg PO TID [facility] PRN Reason: Protocol Last Admin: 01/10/18 17:20 Dose: 400 mg Heparin Sodium (Porcine) (Heparin) 5,000 units SC Q8 [facility] PRN Reason: Protocol Last Admin: 01/11/18 06:34 Dose: 5,000 units Hydromorphone HCl (Dilaudid) 2 mg IVP Q4H PRN PRN Reason: Pain, moderate (4-7) Last Admin: 01/11/18 06:41 Dose: 2 mg Meropenem 500 mg/ Sodium (Chloride) 50 mls @ 100 mls/hr IVPB 0200,1000,1800 [facility] PRN Reason: Protocol Stop: 01/13/18 18:01 Last Admin: 01/11/18 02:28 Dose: 100 mls/hr Sodium Chloride (Sodium Chloride 0.45%) 1,000 mls @ 150 mls/hr IV .Q6H40M [facility] Last Admin: 01/11/18 06:34 Dose: 150 mls/hr Fluconazole 100 mg/ (Miscellaneous) 50 mls @ 100 mls/hr IVPB DAILY [facility] PRN Reason: Protocol Metoprolol Tartrate (Lopressor) 12.5 mg PO BID [facility] Last Admin: 01/10/18 21:48 Dose: 12.5 mg Midodrine (Proamatine) 5 mg PO TID [facility] Last Admin: 01/11/18 06:35 Dose: 5 mg Ondansetron HCl (Zofran Inj) 4 mg IVP Q4H PRN PRN Reason: Nausea/Vomiting Last Admin: 01/09/18 12:21 Dose: 4 mg Pantoprazole Sodium (Protonix Inj) 40 mg IVP DAILY [facility] Last Admin: 01/10/18 09:41 Dose: 40 mg Sodium Bicarbonate (Sodium Bicarbonate Tab) 650 mg PO BID [facility] Last Admin: 01/10/18 17:20 Dose: 650 mg - Labs Labs: 01/11/18 05:40 01/11/18 05:40 PT 14.3 SECONDS (9.4-12.5) H 01/08/18 08:50 INR 1.24 (0.93-1.08) H 01/08/18 08:50 APTT 38.3 Seconds (25.1-36.5) H 01/08/18 08:50 - Constitutional Appears: Cachectic, Chronically Ill - Head Exam Head Exam: NORMAL INSPECTION - Neck Exam Neck Exam: absent: Meningismus Additional comments: right IJ central venous catheter with dry dressings in place - Respiratory Exam Respiratory Exam: Decreased Breath Sounds - Cardiovascular Exam Cardiovascular Exam: +S1, +S2 - GI/Abdominal Exam GI & Abdominal Exam: Soft. absent: Tenderness Additional comments: PEG tube in place Assessment and Plan - Assessment and Plan (Free Text) Plan: Assessment severe sepsis with acute on chronic renal failure due to Klebsiella bacteremia R /O PICC line-related infection S/P removal, S/P replacement of nephrostomy tube , S/P placement of new right internal jugular vein central venous catheter S/P sepsis S/P right sided pyelonephritis with associated cystitis, with persistent coagulase negative staph bacteremia probably port/ central line as the source S/P removal pneumobilia and elevated bilirubin, consider S/P cholecystectomy R/O choledocholethiasis carcinoma of GI tract S/P colectomy and ileostomy S/P nephrostomy tube placement on the right 2 years ago history of G-tube placement chronic renal failure Plan since the Klebsiella is sensitive, will change Merrem to Cefazolin and will recommend at least 2 weeks of antibiotics from time of PICC removal overall prognosis is poor
--- NOTE | 2018-01-11 12:05 | PN ---
DATE: 01/11/2018 CARDIOLOGY FOLLOWUP SUBJECTIVE: The patient is complaining of diffuse body aches. PHYSICAL EXAMINATION: VITAL SIGNS: Blood pressure is 90/60, heart rate is 107. NECK: Negative JVD. LUNGS: Without rales. HEART: Reveals S1, S2. EXTREMITIES: Without edema. LABORATORY DATA: The white count is down to 19.9, hemoglobin is 8.8. Chemistries: BUN and creatinine are 45 and 1.4. IMPRESSION: 1. Gram-negative sepsis. 2. Transient hypotension. 3. Status post nephrectomy tube, which was changed. 4. Anemia. 5. Borderline elevated troponins. PLAN: Given these findings, the patient hemodynamically is better. Can be transferred out of the ICU today. Tim Salcido MD
--- NOTE | 2018-01-11 14:20 | CP.PCM.PN ---
Subjective - Date & Time of Evaluation Date of Evaluation: 01/11/18 Time of Evaluation: 14:18 - Subjective Subjective: Nephrology Consultation Note: Assessment: Stable PRANAV likely pre-renal state and hemoconcentration with sepsis (GNR) lactic acidosis with HAGMA Hematuria Hyperbili with abnormal LFT Anemia carcinoma of GI tract S/P colectomy and ileostomy, S/P Rt nephrostomy tube placement 2 years ago and change 1 month ago, history of G-tube placement Plan No acute need for renal replacement therapy at this time. Maintain hemodynamics stable. avoid hypotension. Patient not on ACEI/ARB due to PRANAV and low BP Monitor Input/Output, daily weights and renal function with basic metabolic panel supplements electrolytes as needed continue with IVF as 0.45% saline. ID, GI and urology involved added sodium bicarb 650 mg bid Anemia management as per heme/onc or primary team Dose meds/antibiotics for reduced GFR. Avoid nephrotoxins/NSAIDs/IV iodinated contrast (unless needed emergently). Avoid fleet enema/Magnesium based laxative. Glycemic control Further work up/management as per primary team Thanks for allowing me to participate in care of your patient. Will follow with you. Please call if any Qs. had d/w and team Dr Eric Oseguera Office: [phone] Reason for consult: PRANAV HPI: Pt is a 62 M with hx of carcinoma of GI tract S/P colectomy and ileostomy, S/P Rt nephrostomy tube placement 2 years ago, history of G-tube placement, on TPN at home presented with c/o bloody urine output from the nephrostomy tube and also worsening abdomen pain for last few days. overall symptoms worsening. renal consult for PRANAV. pt with lactic acidosis and hyperbilir as well. Denies OTC/herbal meds or NSAIDs No recent iodinated contrast exposure. Noted episode of low BP (96/52). ROS: feels better Cardiovascular: No chest pain. Pulmonary: No shortness of breath Gastrointestinal: improved abdominal pain denies nausea. No vomiting. Genitourinary: No pain while urinating. s/p nephrostomy tube change 01/10/18 All other negative except as in HPI Physical Examination: General Appearance: comfortable, in no acute respiratory distress, co-operative . ill appearing Vitals reviewed and noted as below Head; Atraumatic, normocephalic ENT: no ulcers no thrush. Tongue is midline/coated. Oropharynx: no rash or ulcers. EYES: Pupils are equal, round and reactive to light accommodation. Eye muscles and extraocular movement intact. Sclera is anicteric. Neck; supple no lymphadenopathy, no thyromegaly or bruit Lungs: Normal respiratory rate/effort. Breath sounds bilateral equal and clear Heart: Increased rate. s1s2 normal. No rub or gallop. Extremities: no edema. No varicose veins Neurological: Patient is sleepy post procedure today Skin: Warm and dry. Normal turgor. No rash. Palpitation: Normal elasticity for age Abdomen: Abdomen is soft. Bowel sounds +. There is no abdominal tenderness, no guarding/rigidity no organomegaly. has iletostomy and G tube Psych: normal insight and normal affect/mood MSK: no joint tenderness or swelling. Digits and nails normal, no deformity : kidney or bladder not palpable. has Rt nephrostomy tube draining hemorrhagic urine Labs/imaging reviewed. Past medical history, past surgical history, family history, social history, allergy reviewed and noted as below Family hx: no hx of CKD. Rest non-contributory renal imaging WNL Objective - Vital Signs/Intake and Output Vital Signs (last 24 hours): Temp Pulse Resp BP Pulse Ox 98.2 F 102 H 31 H 98/60 L 100 01/11/18 05:00 01/11/18 13:57 01/11/18 13:10 01/11/18 13:00 01/11/18 11:30 Intake and Output: 01/11/18 01/11/18 06:59 18:59 Intake Total 2495 1810 Output Total 2500 2200 Balance -5 -390 - Medications Medications: Current Medications Acetaminophen (Tylenol 325mg Tab) 650 mg PO Q6H PRN PRN Reason: FEVER>=99.5F Acetaminophen (Tylenol 650 Mg Supp) 650 mg RC Q6H PRN PRN Reason: TEMP>=99.5F Amitriptyline HCl (Elavil) 25 mg PO HS [facility] Last Admin: 01/10/18 21:53 Dose: 25 mg Gabapentin (Neurontin) 400 mg PO TID [facility] PRN Reason: Protocol Last Admin: 01/11/18 13:58 Dose: 400 mg Heparin Sodium (Porcine) (Heparin) 5,000 units SC Q8 [facility] PRN Reason: Protocol Last Admin: 01/11/18 13:58 Dose: 5,000 units Hydromorphone HCl (Dilaudid) 2 mg IVP Q4H PRN PRN Reason: Pain, moderate (4-7) Last Admin: 01/11/18 10:31 Dose: 2 mg Sodium Chloride (Sodium Chloride 0.45%) 1,000 mls @ 150 mls/hr IV .Q6H40M [facility] Last Admin: 01/11/18 12:29 Dose: 150 mls/hr Fluconazole 100 mg/ (Miscellaneous) 50 mls @ 100 mls/hr IVPB DAILY [facility] PRN Reason: Protocol Last Admin: 01/11/18 09:40 Dose: 100 mls/hr Cefazolin Sodium 2 gm/ Sodium (Chloride) 100 mls @ 200 mls/hr IVPB Q8 [facility] PRN Reason: Protocol Last Admin: 01/11/18 13:57 Dose: 200 mls/hr Metoprolol Tartrate (Lopressor) 12.5 mg PO BID [facility] Last Admin: 01/11/18 09:41 Dose: 12.5 mg Midodrine (Proamatine) 5 mg PO TID [facility] Last Admin: 01/11/18 13:58 Dose: 5 mg Ondansetron HCl (Zofran Inj) 4 mg IVP Q4H PRN PRN Reason: Nausea/Vomiting Last Admin: 01/09/18 12:21 Dose: 4 mg Pantoprazole Sodium (Protonix Ec Tab) 40 mg PO ACB [facility] Sodium Bicarbonate (Sodium Bicarbonate Tab) 650 mg PO BID [facility] Last Admin: 01/11/18 09:41 Dose: 650 mg - Labs Labs: 01/11/18 05:40 01/11/18 05:40 PT 14.3 SECONDS (9.4-12.5) H 01/08/18 08:50 INR 1.24 (0.93-1.08) H 01/08/18 08:50 APTT 38.3 Seconds (25.1-36.5) H 01/08/18 08:50
[2018-01-12] MEDS: HYDROmorphone 2 mg/ml ISec IVP PRN ×6 (01:49→22:51)
[2018-01-12] MEDS: Sodium Chloride 0.45% 1,000 ML IV SCH (03:19)
[2018-01-12] MEDS: ceFAZolin 2 GM in Sodium Chloride 0.9% 100 ML IVPB SCH ×3 (05:30→22:51)
[2018-01-12 07:19] LABS: BASO # 0.01 K/mm3 (0.0-2.0); EOS # 0.2 (0.0-0.7); EOS % 0.7 % (1.5-5.0); GRAN # 21.57 (1.4-6.5); GRAN % 86.4 % (50.0-68.0); HEMOGLOBIN 8.7 g/dL (14.0-18.0); LYMPH # 1.7 (1.2-3.4); LYMPH % 6.8 % (22.0-35.0); MEAN CORPUSCULAR HEMOGLOBIN 29.8 pg (25.0-35.0); MEAN CORPUSCULAR HGB CONC 34.3 g/dl (31.0-37.0); MEAN PLATELET VOLUME 12.5 fl (7.0-11.0); MONO # 1.5 (0.1-0.6); MONO % 6.1 % (1.0-6.0); RBC 2.92 10^6/uL (3.5-6.1); RED CELL DISTRIBUTION WIDTH 16.3 % (11.5-14.5)
[2018-01-12 07:34] LABS: ALB/GLOB RATIO 0.8 (1.1-1.8); ALBUMIN 2.8 g/dL (3.0-4.8); ALT/SGPT 61 U/L (7-56); AST/SGOT 77 U/L (17-59); BLOOD UREA NITROGEN 41 mg/dL (7-21); CALCIUM 9.3 mg/dL (8.4-10.5); GFR AFRICAN-AMERICAN > 60; GFR NON-AFRICAN AMERICAN 56
[2018-01-12] MEDS ORDERED: DiphenhydrAMINE 50 mg/ml Inj IVP ONE (07:55)
--- NOTE | 2018-01-12 08:36 | PN ---
DATE: 01/11/2018 SUBJECTIVE: Patient is seen lying in the ICU, bed 1. Patient is alert, awake, responsive. Appears to be sleepy. PHYSICAL EXAMINATION: VITAL SIGNS: T-max 98.2. Telemetry shows sinus rhythm, sinus tach at 105-107, blood pressure 95/56, respirations 18-12-14, O2 sat 100% on 2 liters. HEENT: Head examination normocephalic, atraumatic. HEENT examination shows pale conjunctivae. Icteric sclerae. No oropharyngeal lesion. Positive right upper chest Port-A-Cath noted. CHEST: Kyphosis. LUNGS: Show questionable decreased air entry. CARDIOVASCULAR: S1 and S2. Regular rhythm. Positive systolic murmur, left sternal border, right second intercostal space. ABDOMEN: Soft. Positive ileostomy. Positive gastrostomy. Positive right percutaneous nephrostomy. No hepatosplenomegaly appreciated. GENITALIA: Male. RECTAL: Deferred. EXTREMITIES: Show no pitting edema, no calf tenderness, no Luis A sign. Positive left upper extremity PICC line removed. Gait examination not tested. MUSCULOSKELETAL: Shows body mass index of 21. DIAGNOSTICS: On 01/11, WBC 19.9, hemoglobin and hematocrit 8.8 and 26.3, platelets 199. Granulocytes 84% segs. Yesterday, his VBG, pH of 7.31, pCO2 44, pO2 38. Lactic acid 1.2. Sodium 142, potassium 3.9, chloride 110, CO2 99, anion gap 17, BUN 45, creatinine 1.4. Creatinine has come down from 2.6 to 1.4. BUN has come down to 45 from 83. GFR is greater than 60, glucose 68, calcium 9.2, phosphorus 3.2, magnesium 2.1, total bili 6.1, direct bili 5.1, AST 80, ALT 73, alkaline phosphatase 483. Albumin 2.7. Hepatitis serology is negative. Repeat blood culture, 01/08, negative. Blood cultures earlier from 01/08, Klebsiella pneumoniae. Urine culture, yeast species. Blood type is O positive. Patient was seen by Loyda Marinelli from Palliative Care Nursing. Patient seen by Dr. Shepherd. IMPRESSION AND PLAN: 1. Severe sepsis with possible questionable septic shock with multiple organ dysfunction syndrome. 2. Acute renal failure, acute kidney injury. 3. Klebsiella pneumoniae bacteremia. 4. Funguria. 5. Status post right upper chest Port-A-Cath removal and new Port-A-Cath placement. 6. Status post left upper extremity peripherally inserted central catheter line removal. 7. Status post replacement of the right percutaneous nephrostomy tube. 8. Tachycardia. 9. Hypotension. 10. Acute kidney injury, prerenal. 11. Hematuria. 12. Hyperbilirubinemia and transaminitis. 13. Status post right internal jugular Port-A-Cath placement. 14. Yeast urinary tract infection. 15. Persistent leukocytosis with granulocytosis and bandemia. 16. Elevated erythrocyte sedimentation rate of 122. 17. Anemia with decreasing hemoglobin and hematocrit. 18. Increased anion gap and high anion gap metabolic acidosis with lactic acidosis (resolved). 19. Mild malnutrition. 20. Indeterminate troponin. 21. Elevated C-reactive protein of greater than 15. 22. 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 23. Hyperglycemia with prediabetes and hemoglobin A1c of 6.9. 24. Proteinuria. 25. Microscopic hematuria. 26. Pyuria. 27. O positive blood type. 28. Gastrointestinal carcinoid. 29. Status post colectomy, ileostomy, right percutaneous nephrostomy. 30. Cachexia of malignancy. 31. Chronic narcotic-dependent pain syndrome of malignancy. PLAN: At this time, patient has been ordered to be transferred to the ICU. Serial CM labs have been ordered. Repeat blood cultures from 01/10, results are pending. CURRENT CONSULTATIONS: 1. Cardiology. 2. Palliative care. 3. Urology. 4. Infectious Disease. 5. Gastroenterology. 6. Interventional Radiology. Patient has been typed and screened for PRBC. If patient's hemoglobin drops further around 8, the patient will need transfusion of PRBC. CURRENT MEDICATIONS: IV fluid half normal saline at 150 mL an hour, Ancef 2 g IV every 8 hours, Diflucan 200 mg IV daily, Dilaudid 2 mg IV every 4 hours p.r.n., Elavil 25 mg at bedtime, heparin 5000 subcu every 8 hours, Lopressor started at 12.5 mg twice a day with holding parameters to hold for heart rate less than 60 and hold for systolic blood pressure 105, ProAmatine increased to 5 mg 3 times a day, Protonix 40 mg daily, sodium bicarbonate 650 mg twice a day, Tylenol 650 mg suppository and p.o. p.r.n., Zofran 4 mg IV every 4 hours p.r.n., oxygen 2 liters ordered. Patient is started on liquid diet, but patient will also be started on TPN. Patient has been ordered transfusion of PRBC if hemoglobin drops to 8 or below. Patient was explained about the details of his medical condition. I have extensively discussed with the patient about overall guarded prognosis and poor prognosis. I have discussed living will advance directive, DNR status. Patient was seen by Palliative Care nurse, Loyda Marinelli. Her recommendations were noted as patient has not made a very clear decision about living will advance directive. He wishes to discuss with his family about code status. Patient was found to be unsure about his living will advance directive and resuscitation wishes. Dictated and electronically signed, not read. Sergio Wagner MD
[2018-01-12] MEDS: Fluconazole IV 200mg/100 ml NS 100 MG in Premixed IV 1 EA IVPB SCH (09:53)
[2018-01-12] MEDS: Pantoprazole 40 mg EC Tab PO SCH (09:56)
[2018-01-12] MEDS ORDERED: Sodium Chloride 0.45% 1,000 ML IV SCH ×2 (10:53→15:03)
--- NOTE | 2018-01-12 11:38 | PN ---
DATE: 01/12/2018 SUBJECTIVE: The patient is lying in bed. He complains of pain "all over his body." He denies any nausea or vomiting. He is taking a diet. He denies any fevers and chills. PHYSICAL EXAMINATION: VITAL SIGNS: Reveal temperature of 97.5, blood pressure 95/60, heart rate of 103. HEENT: Reveals sclerae to be somewhat icteric. Conjunctivae pale. NECK: Supple. CHEST: Reveals decreased breath sounds. HEART: Reveals a regular rate and rhythm. ABDOMEN: Soft. He has a right posterior percutaneous nephrostomy draining bloody urine. He has a left upper quadrant PEG draining bilious fluid. He has a left lower quadrant ileostomy. His abdomen is soft. EXTREMITIES: Show no edema. LABORATORY DATA: Reveal white blood cell count up to 25, hemoglobin 8.7, platelet count 206,000. Chemistries reveal bicarb of 20, BUN 41, creatinine 1.3, total bilirubin today 6.9 with an AST 77, ALT 61, which were stable. Alkaline phosphatase is 548. 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 The patient has had a slowly rising bilirubin over the last several days. CT scan of the abdomen performed on admission showed pneumobilia from prior instrumentation of the biliary tract, but no evidence of biliary dilatation and bile duct obstruction. He is on meropenem, which can be hepatotoxic. The other possibility is metastatic disease causing hepatobiliary obstruction. This was not seen on earlier CAT scan. RECOMMENDATIONS: 1. We will ask Infectious Disease to switch the patient to a different antibiotic and stop meropenem. The patient has a persistently elevated white blood cell count and has Klebsiella pneumoniae sepsis. 2. Continue palliative care evaluation. The patient's prognosis is extremely poor. Ezequiel Olivo MD
--- NOTE | 2018-01-12 12:07 | CP.PCM.PN ---
Subjective - Date & Time of Evaluation Date of Evaluation: 01/12/18 Time of Evaluation: 11:00 - Subjective Subjective: Alert, complains of lower abdominal discomfort. Also noted to have swelling/ ecchymosis and tenderness right side neck above port . Objective - Vital Signs/Intake and Output Vital Signs (last 24 hours): Temp Pulse Resp BP Pulse Ox 98 F 100 H 18 98/63 L 91 L 01/12/18 10:30 01/12/18 10:30 01/12/18 10:30 01/12/18 10:30 01/12/18 08:22 Intake and Output: 01/12/18 01/12/18 06:59 18:59 Intake Total 660 1700 Output Total 3600 1300 Balance -2940 400 - Medications Medications: Current Medications Acetaminophen (Tylenol 325mg Tab) 650 mg PO Q6H PRN PRN Reason: FEVER>=99.5F Last Admin: 01/12/18 05:31 Dose: 650 mg Acetaminophen (Tylenol 650 Mg Supp) 650 mg RC Q6H PRN PRN Reason: TEMP>=99.5F Amitriptyline HCl (Elavil) 25 mg PO HS TAMMY Last Admin: 01/11/18 21:45 Dose: 25 mg Gabapentin (Neurontin) 400 mg PO TID TAMMY PRN Reason: Protocol Last Admin: 01/12/18 09:54 Dose: 400 mg Heparin Sodium (Porcine) (Heparin) 5,000 units SC Q8 TAMMY PRN Reason: Protocol Last Admin: 01/12/18 05:31 Dose: 5,000 units Hydromorphone HCl (Dilaudid) 2 mg IVP Q4H PRN PRN Reason: Pain, moderate (4-7) Last Admin: 01/12/18 09:57 Dose: 2 mg Fluconazole 100 mg/ (Miscellaneous) 50 mls @ 100 mls/hr IVPB DAILY TAMMY PRN Reason: Protocol Last Admin: 01/12/18 09:53 Dose: 100 mls/hr Cefazolin Sodium 2 gm/ Sodium (Chloride) 100 mls @ 200 mls/hr IVPB Q8 TAMMY PRN Reason: Protocol Last Admin: 01/12/18 05:30 Dose: 200 mls/hr Chromium/Copper/Manganese/Zinc 1 ml/ Multivitamins/Vitamin C 10 ml/ Insulin Human Regular 5 units/ Amino Acids/Electrolytes/Dextrose 2,011.05 mls @ 83 mls/ hr IV .Q24H [facility] Fat Emulsion Intravenous (Intralipid 20%) 250 mls @ 21 mls/hr IV MWF@1800 [facility] Sodium Chloride (Sodium Chloride 0.45%) 1,000 mls @ 75 mls/hr IV .[id number] [facility] Metoprolol Tartrate (Lopressor) 12.5 mg PO BID [facility] Last Admin: 01/12/18 09:54 Dose: Not Given Midodrine (Proamatine) 5 mg PO TID [facility] Last Admin: 01/12/18 09:56 Dose: 5 mg Ondansetron HCl (Zofran Inj) 4 mg IVP Q4H PRN PRN Reason: Nausea/Vomiting Last Admin: 01/09/18 12:21 Dose: 4 mg Pantoprazole Sodium (Protonix Ec Tab) 40 mg PO ACB [facility] Last Admin: 01/12/18 09:56 Dose: 40 mg Sodium Bicarbonate (Sodium Bicarbonate Tab) 650 mg PO BID [facility] Last Admin: 01/12/18 09:54 Dose: 650 mg - Labs Labs: 01/12/18 07:00 01/12/18 07:00 PT 14.3 SECONDS (9.4-12.5) H 01/08/18 08:50 INR 1.24 (0.93-1.08) H 01/08/18 08:50 APTT 38.3 Seconds (25.1-36.5) H 01/08/18 08:50 - Constitutional Appears: Cachectic, Chronically Ill - Head Exam Head Exam: NORMOCEPHALIC - Eye Exam Eye Exam: Normal appearance, PERRL - ENT Exam ENT Exam: Mucous Membranes Moist, Normal Oropharynx - Respiratory Exam Respiratory Exam: Clear to Ausculation Bilateral, NORMAL BREATHING PATTERN - Cardiovascular Exam Cardiovascular Exam: REGULAR RHYTHM, +S1, +S2 - GI/Abdominal Exam Additional comments: ileostomy patent, venting tube patient - Back Exam Back Exam: NORMAL INSPECTION - Skin Skin Exam: Dry, Pallor Assessment and Plan - Assessment and Plan (Free Text) Assessment: 62 year old male with history of carcinoid tumor, bowel obstruction, s/p colectomy and ileostomy, venting tube, right nephrostomy tube who was admitted with sepsis,pneumonia, PRANAV, UTI. Patient is alert, complaining of lower abdominal pain. He just received Dilaudid. Also noted to have swelling/ecchymosis and tenderness right side neck above port The patient states he has not spoken to his about advance care planning. I explained that she had not returned call which was placed yesterday. Mr Cameron does not want to make advance care planning decision with out his being parent. After speaking with Mr Cameron, I left another VM on 's cell shabbir today. Time spent with patient in advance care planning discussion, 15 minutes Plan: Goals of care and advance care planning/palliative support IR notified to evaluate swelling around port site Dilaudid 2 MG IV for pain.
--- NOTE | 2018-01-12 13:46 | CP.PCM.PN ---
Subjective - Date & Time of Evaluation Date of Evaluation: 01/12/18 Time of Evaluation: 06:00 - Subjective Subjective: Patient seen and evaluated bedside. No acute issues overnight. Patient denies fever, chills, abdominal pain, or any other complaints at this time. Objective - Vital Signs/Intake and Output Vital Signs (last 24 hours): Temp Pulse Resp BP Pulse Ox 97.8 F 103 H 18 102/64 100 01/12/18 12:29 01/12/18 12:29 01/12/18 12:29 01/12/18 12:29 01/12/18 12:01 Intake and Output: 01/12/18 01/12/18 06:59 18:59 Intake Total 660 1959 Output Total 3600 1300 Balance -2940 659 - Medications Medications: Current Medications Acetaminophen (Tylenol 325mg Tab) 650 mg PO Q6H PRN PRN Reason: FEVER>=99.5F Last Admin: 01/12/18 05:31 Dose: 650 mg Acetaminophen (Tylenol 650 Mg Supp) 650 mg RC Q6H PRN PRN Reason: TEMP>=99.5F Amitriptyline HCl (Elavil) 25 mg PO HS TAMMY Last Admin: 01/11/18 21:45 Dose: 25 mg Gabapentin (Neurontin) 400 mg PO TID TAMMY PRN Reason: Protocol Last Admin: 01/12/18 13:30 Dose: 400 mg Heparin Sodium (Porcine) (Heparin) 5,000 units SC Q8 TAMMY PRN Reason: Protocol Last Admin: 01/12/18 13:31 Dose: Not Given Hydromorphone HCl (Dilaudid) 2 mg IVP Q4H PRN PRN Reason: Pain, moderate (4-7) Last Admin: 01/12/18 09:57 Dose: 2 mg Fluconazole 100 mg/ (Miscellaneous) 50 mls @ 100 mls/hr IVPB DAILY TAMMY PRN Reason: Protocol Last Admin: 01/12/18 09:53 Dose: 100 mls/hr Cefazolin Sodium 2 gm/ Sodium (Chloride) 100 mls @ 200 mls/hr IVPB Q8 TAMMY PRN Reason: Protocol Last Admin: 01/12/18 13:30 Dose: 200 mls/hr Chromium/Copper/Manganese/Zinc 1 ml/ Multivitamins/Vitamin C 10 ml/ Insulin Human Regular 5 units/ Amino Acids/Electrolytes/Dextrose 2,011.05 mls @ 83 mls/ hr IV .Q24H [facility] Fat Emulsion Intravenous (Intralipid 20%) 250 mls @ 21 mls/hr IV MWF@1800 [facility] Sodium Chloride (Sodium Chloride 0.45%) 1,000 mls @ 75 mls/hr IV .[id number] [facility] Metoprolol Tartrate (Lopressor) 12.5 mg PO BID [facility] Last Admin: 01/12/18 09:54 Dose: Not Given Midodrine (Proamatine) 5 mg PO TID [facility] Last Admin: 01/12/18 13:30 Dose: 5 mg Ondansetron HCl (Zofran Inj) 4 mg IVP Q4H PRN PRN Reason: Nausea/Vomiting Last Admin: 01/09/18 12:21 Dose: 4 mg Pantoprazole Sodium (Protonix Ec Tab) 40 mg PO ACB [facility] Last Admin: 01/12/18 09:56 Dose: 40 mg Sodium Bicarbonate (Sodium Bicarbonate Tab) 650 mg PO BID [facility] Last Admin: 01/12/18 09:54 Dose: 650 mg - Labs Labs: 01/12/18 07:00 01/12/18 07:00 PT 14.3 SECONDS (9.4-12.5) H 01/08/18 08:50 INR 1.24 (0.93-1.08) H 01/08/18 08:50 APTT 38.3 Seconds (25.1-36.5) H 01/08/18 08:50 - Constitutional Appears: Non-toxic, No Acute Distress, Chronically Ill - Head Exam Head Exam: ATRAUMATIC, NORMAL INSPECTION, NORMOCEPHALIC - Eye Exam Eye Exam: Normal appearance - ENT Exam ENT Exam: Mucous Membranes Moist - Respiratory Exam Respiratory Exam: Clear to Ausculation Bilateral, NORMAL BREATHING PATTERN - Cardiovascular Exam Cardiovascular Exam: Tachycardia - Neurological Exam Neurological Exam: Alert, Awake, Oriented x3 Assessment and Plan - Assessment and Plan (Free Text) Assessment: 62 year old male with PMHx of carcinoid tumor diagnosed 4 years ago s/p colectomy, ileostomy, right sided nephrostomy tube, recently discharged from the hospital for sepsis from pyelonephritis/cystitis, PEG tube with chronic bowel obstruction and PICC line on TPN, presented to the hospital for near syncope. Patient is being treated for sepsis, PRANAV, elevated liver function. Plan: 1. Sepsis -afebrile -WBC 25.5 -ID consulted -follow up urine cx, continue Merrem, recommend at least 2 weeks of antibiotics from time of PICC removal - may be able to de-escalate antibiotics to Cefazolin -intial Blood cultures showing gram negative rods, repeat showing no growth currently -likely secondary from PICC line, which was removed -BP 95/60, tachycardic 2. Anemia -Hgb: 8.7 -transfuse 2 units PRBC -continue to monitor 3. Elevated Liver Enzymes and Elevated Bilirubin -continue to trend -CT abdomen/pelvis: no acute intrabdominal findings -GI Olivo consulted, follow recs -T bili elevated to 6.9 -ast, alt TRENDING UP 4. Carcinoid Tumor-chronic -palliative care consult -pain medications -right chemo cath placed -will start TPN 5. PRANAV -nephro consulted, Oumar, follow recs -continue fluids -urology consulted for nephrostomy tube bleeding -sodium bicarb 6. Hypotension-chronic -continue to monitor -continue home meds PPX: GI: protonix DVT: heparin SC Physical Therapy pending, OOB to chair TCU evaluation Patient seen and discussed with attending Dr. Wagner
--- NOTE | 2018-01-12 14:12 | RAD ---
HISTORY: rule out pneumo and check port placement COMPARISON: 01/08/2018 FINDINGS: LUNGS: No active pulmonary disease. PLEURA: No significant pleural effusion identified, no pneumothorax apparent. CARDIOVASCULAR: Normal. OSSEOUS STRUCTURES: No significant abnormalities. VISUALIZED UPPER ABDOMEN: Normal. OTHER FINDINGS: The Port-A-Cath terminates in the mid right atrium IMPRESSION: No evidence of pneumothorax. Port-A-Cath terminates in the right atrium
--- NOTE | 2018-01-12 14:22 | PN ---
DATE: 01/12/2018 SUBJECTIVE: The patient is now transferred to [facility], bed 1. Overnight nurse's notes were reviewed. The patient spent most of his time in bed. The patient was found to be intermittently sleeping and sitting up in the bed. The patient does not offer any specific complaint except chronic pain in the back and abdominal area. Yesterday, we made multiple attempts to contact the patient's family including the on the phone number provided by the patient, but there was no answer on any of the phone numbers. The patient was seen by the palliative care nurse, Loyda Marinelli. Code status is still full code and living will with advance directive is not available or made at this time. PHYSICAL EXAMINATION: VITAL SIGNS: T-max 98.7; heart rate 109; blood pressure 110/68, 103/67; respiration 18; O2 sat 100%. HEAD: Normocephalic, atraumatic. HEENT: Shows pale conjunctivae. Anicteric sclerae. No oropharyngeal lesion. No neck rigidity. CHEST: Kyphosis. Positive right upper chest Port-A-Cath. LUNGS: Shows questionable decreased breath sounds at the bases. No crackles, rales or wheezing. CARDIOVASCULAR: Systolic murmur at the right second intercostal space, left sternal border. ABDOMEN: Shows gastrostomy, ileostomy and right flank percutaneous nephrostomy noted. GENITALIA: Male. RECTAL: Deferred. EXTREMITY: Shows no pitting edema, no calf tenderness, no Homans' sign. NEUROLOGIC: The patient is alert, awake, and responsive, able to follow commands, moves extremities without assistance. Gait examination is not tested. VASCULAR: Palpable pulses. LABORATORY DATA: Diagnostics from 01/12/2018, WBC count 25,000, hemoglobin/hematocrit 8.7 and 25.4, platelets 206. Granulocytes with 86% segs. Sodium 141, potassium 3.6, chloride 110, CO2 of 20, BUN 41, creatinine 1.3, glucose 118, calcium 9.3, phosphorus 3.4, magnesium 2.1, GFR greater than 60, total bilirubin 6.9, direct bilirubin 6, AST 77, ALT 61, alkaline phosphatase 548, albumin 2.8. Blood cultures final, Klebsiella pneumoniae. Urine cultures, yeast. IMPRESSION: 1. Questionable and possible septic shock with . 2. Klebsiella pneumoniae bacteremia. 3. Severe sepsis secondary to Klebsiella pneumoniae bacteremia. 4. Hyperprolactinemia. 5. Elevated erythrocyte sedimentation rate. 6. Leukocytosis with granulocytosis and bandemia. 7. Normocytic anemia with decreasing hemoglobin/hematocrit. 8. Resolving acute renal failure and acute kidney injury. 9. Hyperbilirubinemia. 10. Severe transaminitis. 11. Mild hypoalbuminemia and mild malnutrition. 12. Feeding dysfunction. 13. Chronic bowel obstruction with chronic hyperalimentation. 14. Chronic narcotic-dependent pain syndrome. 15. Chronic pain syndrome of malignancy. 16. Cachexia of malignancy. 17. Decreasing hemoglobin/hematocrit with normocytic anemia. 18. Granulocytosis. 19. Status post right percutaneous nephrostomy revision. 20. Status post right upper chest Port-A-Cath placement. 21. Status post left upper extremity peripherally inserted central catheter line placement and removal. 22. Funguria. 23. Gait dysfunction. 24. Deconditioning. 25. Chronic hyperalimentation dependent nutritional. 26. History of gastrointestinal carcinoid, status post chemotherapy. 27. Status post colectomy. PLAN: At this time, the patient will be ordered transfusion of 2 units of PRBC to goal hemoglobin of around 10 grams. The patient will be continued on IV fluids, half normal saline at 150 mL an hour. The patient will be ordered TPN today as now the Port-A-Cath can be started to be used today. The patient will be continued on parenteral analgesics. The patient will be continued on IV Zofran 4 mg IV every 4 hours. The patient will be continued on other medications as per the MAR. As mentioned yesterday, I have advised the patient about his overall [id number] prognosis and complicated medical condition and worsening clinical condition with multiple organ dysfunction. The patient was explained in layman's language about his poor prognosis. Living will with advance directive and DNR was discussed. The patient's case is at present referred to palliative care nurse, Loyda Marinelli. Decision regarding above is still pending. Prognosis is poor and declining. The patient is aware. Dictated and electronically signed, not read. Sergio Wagner MD
--- NOTE | 2018-01-12 15:07 | CP.PCM.PN ---
Subjective - Date & Time of Evaluation Date of Evaluation: 01/12/18 Time of Evaluation: 15:05 - Subjective Subjective: Nephrology Consultation Note: Assessment: Stable PRANAV likely pre-renal state and hemoconcentration with sepsis (GNR) lactic acidosis with HAGMA Hematuria Hyperbili with abnormal LFT Anemia carcinoma of GI tract S/P colectomy and ileostomy, S/P Rt nephrostomy tube placement 2 years ago and change 1 month ago, history of G-tube placement Plan No acute need for renal replacement therapy at this time. Maintain hemodynamics stable. avoid hypotension. Patient not on ACEI/ARB due to PRANAV and low BP Monitor Input/Output, daily weights and renal function with basic metabolic panel supplements electrolytes as needed continue with IVF as 0.45% saline @ 150 ml/hr, can lower down to 75 ml/hr once pt on TPN. ID, GI and urology involved added sodium bicarb 650 mg bid Anemia management as per heme/onc or primary team consider octreotide to reduce GI fluid loss, d/w team and agreed. Dose meds/antibiotics for reduced GFR. Avoid nephrotoxins/NSAIDs/IV iodinated contrast (unless needed emergently). Avoid fleet enema/Magnesium based laxative. Glycemic control Further work up/management as per primary team Thanks for allowing me to participate in care of your patient. Will follow with you. Please call if any Qs. had d/w and team Dr Eric Oseguera Office: [phone] Reason for consult: PRANAV HPI: Pt is a 62 M with hx of carcinoma of GI tract S/P colectomy and ileostomy, S/P Rt nephrostomy tube placement 2 years ago, history of G-tube placement, on TPN at home presented with c/o bloody urine output from the nephrostomy tube and also worsening abdomen pain for last few days. overall symptoms worsening. renal consult for PRANAV. pt with lactic acidosis and hyperbilir as well. Denies OTC/herbal meds or NSAIDs No recent iodinated contrast exposure. Noted episode of low BP (96/52). ROS: feels better Cardiovascular: No chest pain. Pulmonary: No shortness of breath Gastrointestinal: improved abdominal pain denies nausea. No vomiting. Genitourinary: No pain while urinating. s/p nephrostomy tube change 01/10/18 All other negative except as in HPI Physical Examination: General Appearance: comfortable, in no acute respiratory distress, co-operative . ill appearing Vitals reviewed and noted as below Head; Atraumatic, normocephalic ENT: no ulcers no thrush. Tongue is midline/coated. Oropharynx: no rash or ulcers. EYES: Pupils are equal, round and reactive to light accommodation. Eye muscles and extraocular movement intact. Sclera is icteric. Neck; supple no lymphadenopathy, no thyromegaly or bruit. has echymose around portacath Lungs: Normal respiratory rate/effort. Breath sounds bilateral equal and clear Heart: Increased rate. s1s2 normal. No rub or gallop. Extremities: no edema. No varicose veins Neurological: Patient is awake alert follows command Skin: Warm and dry. Normal turgor. No rash. Palpitation: Normal elasticity for age Abdomen: Abdomen is soft. Bowel sounds +. There is no abdominal tenderness, no guarding/rigidity no organomegaly. has iletostomy and G tube Psych: normal insight and normal affect/mood MSK: no joint tenderness or swelling. Digits and nails normal, no deformity : kidney or bladder not palpable. has Rt nephrostomy tube draining hemorrhagic urine Labs/imaging reviewed. Past medical history, past surgical history, family history, social history, allergy reviewed and noted as below Family hx: no hx of CKD. Rest non-contributory renal imaging WNL Objective - Vital Signs/Intake and Output Vital Signs (last 24 hours): Temp Pulse Resp BP Pulse Ox 97.8 F 103 H 20 99/64 L 100 01/12/18 12:29 01/12/18 14:39 01/12/18 14:39 01/12/18 14:39 01/12/18 14:39 Intake and Output: 01/12/18 01/12/18 06:59 18:59 Intake Total 660 1959 Output Total 3600 1300 Balance -2940 659 - Medications Medications: Current Medications Acetaminophen (Tylenol 325mg Tab) 650 mg PO Q6H PRN PRN Reason: FEVER>=99.5F Last Admin: 01/12/18 05:31 Dose: 650 mg Acetaminophen (Tylenol 650 Mg Supp) 650 mg RC Q6H PRN PRN Reason: TEMP>=99.5F Amitriptyline HCl (Elavil) 25 mg PO HS TAMMY Last Admin: 01/11/18 21:45 Dose: 25 mg Gabapentin (Neurontin) 400 mg PO TID TAMMY PRN Reason: Protocol Last Admin: 01/12/18 13:30 Dose: 400 mg Heparin Sodium (Porcine) (Heparin) 5,000 units SC Q8 TAMMY PRN Reason: Protocol Last Admin: 01/12/18 13:31 Dose: Not Given Hydromorphone HCl (Dilaudid) 2 mg IVP Q4H PRN PRN Reason: Pain, moderate (4-7) Last Admin: 01/12/18 14:36 Dose: 2 mg Fluconazole 100 mg/ (Miscellaneous) 50 mls @ 100 mls/hr IVPB DAILY [facility] PRN Reason: Protocol Last Admin: 01/12/18 09:53 Dose: 100 mls/hr Cefazolin Sodium 2 gm/ Sodium (Chloride) 100 mls @ 200 mls/hr IVPB Q8 [facility] PRN Reason: Protocol Last Admin: 01/12/18 13:30 Dose: 200 mls/hr Fat Emulsion Intravenous (Intralipid 20%) 250 mls @ 21 mls/hr IV MWF@1800 [facility] Multivitamins/Vitamin C 10 ml/Insulin Human Regular 5 units / Amino Acids/ Electrolytes/Dextrose 2,010.05 mls @ 83 mls/hr IV .Q24H [facility] Sodium Chloride (Sodium Chloride 0.45%) 1,000 mls @ 150 mls/hr IV .Q6H40M [facility] Metoprolol Tartrate (Lopressor) 12.5 mg PO BID [facility] Last Admin: 01/12/18 09:54 Dose: Not Given Midodrine (Proamatine) 5 mg PO TID [facility] Last Admin: 01/12/18 13:30 Dose: 5 mg Ondansetron HCl (Zofran Inj) 4 mg IVP Q4H PRN PRN Reason: Nausea/Vomiting Last Admin: 01/09/18 12:21 Dose: 4 mg Pantoprazole Sodium (Protonix Ec Tab) 40 mg PO ACB [facility] Last Admin: 01/12/18 09:56 Dose: 40 mg Sodium Bicarbonate (Sodium Bicarbonate Tab) 650 mg PO BID [facility] Last Admin: 01/12/18 09:54 Dose: 650 mg - Labs Labs: 01/12/18 07:00 01/12/18 07:00 PT 14.3 SECONDS (9.4-12.5) H 01/08/18 08:50 INR 1.24 (0.93-1.08) H 01/08/18 08:50 APTT 38.3 Seconds (25.1-36.5) H 01/08/18 08:50
--- NOTE | 2018-01-12 16:08 | CP.PCM.PN ---
Subjective - Date & Time of Evaluation Date of Evaluation: 01/12/18 Time of Evaluation: 11:20 - Subjective Subjective: No fevers, not in distress, less pain in the right chest wall port site, no nausea. Objective - Vital Signs/Intake and Output Vital Signs (last 24 hours): Temp Pulse Resp BP Pulse Ox 98 F 93 H 18 100/67 91 L 01/12/18 08:22 01/12/18 08:22 01/12/18 08:22 01/12/18 08:22 01/12/18 08:22 Intake and Output: 01/12/18 01/12/18 06:59 18:59 Intake Total 660 1700 Output Total 3600 1300 Balance -2940 400 - Medications Medications: Current Medications Acetaminophen (Tylenol 325mg Tab) 650 mg PO Q6H PRN PRN Reason: FEVER>=99.5F Last Admin: 01/12/18 05:31 Dose: 650 mg Acetaminophen (Tylenol 650 Mg Supp) 650 mg RC Q6H PRN PRN Reason: TEMP>=99.5F Amitriptyline HCl (Elavil) 25 mg PO HS [facility] Last Admin: 01/11/18 21:45 Dose: 25 mg Gabapentin (Neurontin) 400 mg PO TID [facility] PRN Reason: Protocol Last Admin: 01/11/18 17:30 Dose: 400 mg Heparin Sodium (Porcine) (Heparin) 5,000 units SC Q8 [facility] PRN Reason: Protocol Last Admin: 01/12/18 05:31 Dose: 5,000 units Hydromorphone HCl (Dilaudid) 2 mg IVP Q4H PRN PRN Reason: Pain, moderate (4-7) Last Admin: 01/12/18 05:31 Dose: 2 mg Sodium Chloride (Sodium Chloride 0.45%) 1,000 mls @ 150 mls/hr IV .Q6H40M [facility] Last Admin: 01/12/18 03:19 Dose: 150 mls/hr Fluconazole 100 mg/ (Miscellaneous) 50 mls @ 100 mls/hr IVPB DAILY [facility] PRN Reason: Protocol Last Admin: 01/11/18 09:40 Dose: 100 mls/hr Cefazolin Sodium 2 gm/ Sodium (Chloride) 100 mls @ 200 mls/hr IVPB Q8 [facility] PRN Reason: Protocol Last Admin: 01/12/18 05:30 Dose: 200 mls/hr Metoprolol Tartrate (Lopressor) 12.5 mg PO BID [facility] Last Admin: 01/11/18 17:29 Dose: 12.5 mg Midodrine (Proamatine) 5 mg PO TID [facility] Last Admin: 01/11/18 17:38 Dose: 5 mg Ondansetron HCl (Zofran Inj) 4 mg IVP Q4H PRN PRN Reason: Nausea/Vomiting Last Admin: 01/09/18 12:21 Dose: 4 mg Pantoprazole Sodium (Protonix Ec Tab) 40 mg PO ACB [facility] Sodium Bicarbonate (Sodium Bicarbonate Tab) 650 mg PO BID [facility] Last Admin: 01/11/18 17:30 Dose: 650 mg - Labs Labs: 01/12/18 07:00 01/12/18 07:00 PT 14.3 SECONDS (9.4-12.5) H 01/08/18 08:50 INR 1.24 (0.93-1.08) H 01/08/18 08:50 APTT 38.3 Seconds (25.1-36.5) H 01/08/18 08:50 - Constitutional Appears: Cachectic, Chronically Ill - Head Exam Head Exam: NORMAL INSPECTION - Neck Exam Neck Exam: absent: Meningismus - Respiratory Exam Respiratory Exam: Decreased Breath Sounds Additional comments: right anterior chest wall port in place - Cardiovascular Exam Cardiovascular Exam: +S1, +S2 - GI/Abdominal Exam GI & Abdominal Exam: Soft. absent: Tenderness Additional comments: PEG tube in place; right sided nephrostomy tube in place Assessment and Plan - Assessment and Plan (Free Text) Plan: Assessment severe sepsis with acute on chronic renal failure due to Klebsiella bacteremia R /O PICC line-related infection S/P removal, S/P replacement of nephrostomy tube , S/P placement of new right internal jugular vein central venous catheter/ right chest wall port S/P sepsis S/P right sided pyelonephritis with associated cystitis, with persistent coagulase negative staph bacteremia probably port/ central line as the source S/P removal pneumobilia and elevated bilirubin, consider S/P cholecystectomy R/O choledocholethiasis 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
[2018-01-12] MEDS ORDERED: [UNRECOGNIZED DRUG - NUTRITION] IV SCH (18:00)
[2018-01-12] MEDS ORDERED: HYDROmorphone 0.5 mg/0.5 ml ISec IVP STA (23:29)
[2018-01-13] MEDS: ceFAZolin 2 GM in Sodium Chloride 0.9% 100 ML IVPB SCH ×3 (05:16→21:08)
[2018-01-13] MEDS: HYDROmorphone 2 mg/ml ISec IVP PRN ×4 (05:27→19:28)
[2018-01-13 06:29] LABS: BASO # 0.01 K/mm3 (0.0-2.0); EOS % 0.1 % (1.5-5.0); GRAN # 28.67 (1.4-6.5); GRAN % 92.1 % (50.0-68.0); HEMOGLOBIN 9.3 g/dL (14.0-18.0); LYMPH # 1.1 (1.2-3.4); LYMPH % 3.4 % (22.0-35.0); MEAN CELL VOLUME 84.9 fl (80.0-105.0); MEAN CORPUSCULAR HEMOGLOBIN 29.3 pg (25.0-35.0); MEAN CORPUSCULAR HGB CONC 34.6 g/dl (31.0-37.0); MEAN PLATELET VOLUME 12.8 fl (7.0-11.0); MONO # 1.4 (0.1-0.6); MONO % 4.4 % (1.0-6.0); PLATELET COUNT 204 10^3/uL (120.0-450.0); RBC 3.17 10^6/uL (3.5-6.1); RED CELL DISTRIBUTION WIDTH 16.5 % (11.5-14.5)
[2018-01-13 06:53] LABS: WHITE BLOOD COUNT 31.2 10^3/ul (4.5-11.0)
[2018-01-13 07:25] LABS: ALB/GLOB RATIO 0.7 (1.1-1.8); ALBUMIN 2.5 g/dL (3.0-4.8); ALT/SGPT 32 U/L (7-56); AST/SGOT 57 U/L (17-59); BILIRUBIN,DIRECT 5.6 mg/dL (0.0-0.4); BLOOD UREA NITROGEN 37 mg/dL (7-21); CALCIUM 9.5 mg/dL (8.4-10.5); GFR AFRICAN-AMERICAN > 60; GFR NON-AFRICAN AMERICAN > 60
[2018-01-13] MEDS: Pantoprazole 40 mg EC Tab PO SCH (08:00)
[2018-01-13 08:10] LABS: BAND 3 % (0-2); LYMPHOCYTE 2 % (22.0-35.0); MONOCYTE 1 % (1.0-6.0); NEUTROPHIL 94 % (50.0-70.0); PLATELET ESTIMATE NORMAL (NORMAL)
[2018-01-13 08:11] LABS: LARGE PLATELETS PRESENT; OVALOCYTES SLIGHT; TARGET CELLS 1+
--- NOTE | 2018-01-13 09:51 | CP.PCM.PN ---
Subjective - Date & Time of Evaluation Date of Evaluation: 01/13/18 Time of Evaluation: 06:00 - Subjective Subjective: Patient seen and evaluated bedside. Patient says he is feeling better today, after receiving blood transfusion yesterday. Patient denies fever, chills, abdominal pain, or any other complaints at this time. Objective - Vital Signs/Intake and Output Vital Signs (last 24 hours): Temp Pulse Resp BP Pulse Ox 98.7 F 120 H 18 117/73 100 01/13/18 06:00 01/13/18 06:00 01/13/18 06:00 01/13/18 06:00 01/13/18 06:00 Intake and Output: 01/13/18 01/13/18 06:59 18:59 Intake Total 370 Output Total 1250 Balance -880 - Medications Medications: Current Medications Acetaminophen (Tylenol 325mg Tab) 650 mg PO Q6H PRN PRN Reason: FEVER>=99.5F Last Admin: 01/12/18 05:31 Dose: 650 mg Acetaminophen (Tylenol 650 Mg Supp) 650 mg RC Q6H PRN PRN Reason: TEMP>=99.5F Amitriptyline HCl (Elavil) 25 mg PO HS [facility] Last Admin: 01/12/18 22:51 Dose: 25 mg Gabapentin (Neurontin) 400 mg PO TID [facility] PRN Reason: Protocol Last Admin: 01/12/18 17:20 Dose: 400 mg Heparin Sodium (Porcine) (Heparin) 5,000 units SC Q8 [facility] PRN Reason: Protocol Last Admin: 01/13/18 05:14 Dose: Not Given Hydromorphone HCl (Dilaudid) 2 mg IVP Q4H PRN PRN Reason: Pain, severe (8-10) Last Admin: 01/13/18 05:27 Dose: 2 mg Fluconazole 100 mg/ (Miscellaneous) 50 mls @ 100 mls/hr IVPB DAILY [facility] PRN Reason: Protocol Last Admin: 01/12/18 09:53 Dose: 100 mls/hr Cefazolin Sodium 2 gm/ Sodium (Chloride) 100 mls @ 200 mls/hr IVPB Q8 [facility] PRN Reason: Protocol Last Admin: 01/13/18 05:16 Dose: 200 mls/hr Fat Emulsion Intravenous (Intralipid 20%) 250 mls @ 21 mls/hr IV MWF@1800 [facility] Multivitamins/Vitamin C 10 ml/Insulin Human Regular 5 units / Amino Acids/ Electrolytes/Dextrose 2,010.05 mls @ 83 mls/hr IV .Q24H [facility] Last Admin: 01/12/18 19:01 Dose: 83 mls/hr Sodium Chloride (Sodium Chloride 0.45%) 1,000 mls @ 150 mls/hr IV .Q6H40M [facility] Last Admin: 01/12/18 23:00 Dose: 150 mls/hr Potassium Chloride (Potassium Chloride 20 Meq/100 Ml) 20 meq in 100 mls @ 50 mls/hr IVPB Q2H [facility] Stop: 01/13/18 12:14 Last Admin: 01/13/18 08:21 Dose: 50 mls/hr Metoprolol Tartrate (Lopressor) 12.5 mg PO BID [facility] Last Admin: 01/12/18 17:21 Dose: Not Given Midodrine (Proamatine) 5 mg PO TID [facility] Last Admin: 01/12/18 17:20 Dose: 5 mg Octreotide Acetate (Sandostatin) 100 mcg SC DAILY [facility] Stop: 01/19/18 15:16 Last Admin: 01/12/18 17:48 Dose: 100 mcg Ondansetron HCl (Zofran Inj) 4 mg IVP Q4H PRN PRN Reason: Nausea/Vomiting Last Admin: 01/09/18 12:21 Dose: 4 mg Pantoprazole Sodium (Protonix Ec Tab) 40 mg PO ACB [facility] Last Admin: 01/13/18 08:00 Dose: 40 mg Sodium Bicarbonate (Sodium Bicarbonate Tab) 650 mg PO BID [facility] Last Admin: 01/12/18 17:18 Dose: 650 mg - Labs Labs: 01/13/18 06:00 01/13/18 06:00 PT 14.3 SECONDS (9.4-12.5) H 01/08/18 08:50 INR 1.24 (0.93-1.08) H 01/08/18 08:50 APTT 38.3 Seconds (25.1-36.5) H 01/08/18 08:50 - Constitutional Appears: Non-toxic, No Acute Distress, Chronically Ill - Head Exam Head Exam: ATRAUMATIC, NORMAL INSPECTION, NORMOCEPHALIC - Eye Exam Eye Exam: EOMI, Normal appearance - ENT Exam ENT Exam: Mucous Membranes Moist - Respiratory Exam Respiratory Exam: Clear to Ausculation Bilateral, NORMAL BREATHING PATTERN - Cardiovascular Exam Cardiovascular Exam: Tachycardia, +S1, +S2 - GI/Abdominal Exam Additional comments: ileostomy in place nephrosotmy tube in place - Extremities Exam Extremities Exam: absent: Pedal Edema - Neurological Exam Neurological Exam: Alert, Awake, Oriented x3 Assessment and Plan - Assessment and Plan (Free Text) Assessment: 62 year old male with PMHx of carcinoid tumor diagnosed 4 years ago s/p colectomy, ileostomy, right sided nephrostomy tube, recently discharged from the hospital for sepsis from pyelonephritis/cystitis, PEG tube with chronic bowel obstruction and PICC line on TPN, presented to the hospital for near syncope. Patient is being treated for sepsis, PRANAV, elevated liver function. Plan: 1. Sepsis -afebrile -WBC 31.2 -ID consulted -cefazolin day 4 -intial Blood cultures showing gram negative rods, repeat showing no growth currently -likely secondary from PICC line, which was removed -tachycardic 2. Anemia -Hgb: 9.3 -status post 2 units PRBC -continue to monitor 3. Elevated Liver Enzymes and Elevated Bilirubin -continue to trend -CT abdomen/pelvis: no acute intrabdominal findings -GI Olivo consulted, follow recs -T bili 6.4 -ast, alt improved today -octreotide 4. Carcinoid Tumor-chronic -palliative care consult -pain medications -right chemo cath placed -will start TPN 5. PRANAV -nephro consulted, Oumar, follow recs -continue fluids, will decrease once TPN started -sodium bicarb 6. Hypotension-chronic -continue to monitor -continue home meds PPX: GI: protonix DVT: heparin SC Physical Therapy pending, OOB to chair TCU evaluation Patient seen and discussed with attending Dr. Wagner
--- NOTE | 2018-01-13 11:30 | PN ---
DATE: 01/13/2018 CARDIOLOGY FOLLOWUP SUBJECTIVE: The patient is awake, complaining of pain. No shortness of breath. OBJECTIVE: VITAL SIGNS: Blood pressure 120/78, heart rate is 100. NECK: Negative JVD. LUNGS: Decreased breath sounds. HEART: Reveal S1, S2. EXTREMITIES: Without change. DATA: Hemoglobin is 9.3, white count is up to 31,000. Chemistries: BUN and creatinine is 37 and 1.2. IMPRESSION: 1. Gram-negative sepsis. 2. No evidence for endocarditis. 3. Transient hypotension, which is now resolved. 4. Status post nephrectomy tube. 5. Borderline elevated troponin. 6. Anemia. Given these findings, the patient is hemodynamically stable. Pain medications have been ordered. Tim Salcido MD
[2018-01-13] MEDS ORDERED: Sodium Chloride 0.45% 1,000 ML IV SCH (11:33)
--- NOTE | 2018-01-13 11:34 | CP.PCM.PN ---
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 Maintain hemodynamics stable. avoid hypotension. Patient not on ACEI/ARB due to PRANAV and low BP Monitor Input/Output, daily weights and renal function with basic metabolic panel supplements electrolytes as needed lowered IVF as 0.45% saline to 75 ml/hr, as pt on TPN. ID, GI and urology involved Increased sodium bicarb 1300 mg bid Anemia management as per heme/onc or primary team consider octreotide to reduce GI fluid loss, d/w team and agreed. supplement lytes as needed Dose meds/antibiotics for improved GFR. Glycemic control Further work up/management as per primary team Thanks for allowing me to participate in care of your patient. Will follow with you. Please call if any Qs. had d/w and team Dr Eric Oseguera Office: [phone] Reason for consult: PRANAV HPI: Pt is a 62 M with hx of carcinoma of GI tract S/P colectomy and ileostomy, S/P Rt nephrostomy tube placement 2 years ago, history of G-tube placement, on TPN at home presented with c/o bloody urine output from the nephrostomy tube and also worsening abdomen pain for last few days. overall symptoms worsening. renal consult for PRANAV. pt with lactic acidosis and hyperbilir as well. Denies OTC/herbal meds or NSAIDs No recent iodinated contrast exposure. Noted episode of low BP (96/52). ROS: feels better Cardiovascular: No chest pain. Pulmonary: No shortness of breath Gastrointestinal: c/o abdominal pain denies nausea. No vomiting. Genitourinary: No pain while urinating. s/p nephrostomy tube change 01/10/18 All other negative except as in HPI Physical Examination: General Appearance: comfortable, in no acute respiratory distress, co-operative . ill appearing Vitals reviewed and noted as below Head; Atraumatic, normocephalic ENT: no ulcers no thrush. Tongue is midline/coated. Oropharynx: no rash or ulcers. EYES: Pupils are equal, round and reactive to light accommodation. Eye muscles and extraocular movement intact. Sclera is icteric. Neck; supple no lymphadenopathy, no thyromegaly or bruit. has echymose around portacath Lungs: Normal respiratory rate/effort. Breath sounds bilateral equal and clear Heart: Increased rate. s1s2 normal. No rub or gallop. Extremities: no edema. No varicose veins Neurological: Patient is awake alert follows command Skin: Warm and dry. Normal turgor. No rash. Palpitation: Normal elasticity for age Abdomen: Abdomen is soft. Bowel sounds +. There is no abdominal tenderness, no guarding/rigidity no organomegaly. has iletostomy and G tube Psych: normal insight and normal affect/mood MSK: no joint tenderness or swelling. Digits and nails normal, no deformity : kidney or bladder not palpable. has Rt nephrostomy tube draining clearer urine Labs/imaging reviewed. Past medical history, past surgical history, family history, social history, allergy reviewed and noted as below Family hx: no hx of CKD. Rest non-contributory renal imaging WNL Objective - Vital Signs/Intake and Output Vital Signs (last 24 hours): Temp Pulse Resp BP Pulse Ox 98.7 F 100 H 18 120/78 100 01/13/18 06:00 01/13/18 10:01 01/13/18 06:00 01/13/18 10:01 01/13/18 06:00 Intake and Output: 01/13/18 01/13/18 06:59 18:59 Intake Total 370 Output Total 1250 Balance -880 - Medications Medications: Current Medications Acetaminophen (Tylenol 325mg Tab) 650 mg PO Q6H PRN PRN Reason: FEVER>=99.5F Last Admin: 01/12/18 05:31 Dose: 650 mg Acetaminophen (Tylenol 650 Mg Supp) 650 mg RC Q6H PRN PRN Reason: TEMP>=99.5F Amitriptyline HCl (Elavil) 25 mg PO HS [facility] Last Admin: 01/12/18 22:51 Dose: 25 mg Gabapentin (Neurontin) 400 mg PO TID [facility] PRN Reason: Protocol Last Admin: 01/13/18 09:58 Dose: 400 mg Heparin Sodium (Porcine) (Heparin) 5,000 units SC Q8 [facility] PRN Reason: Protocol Last Admin: 01/13/18 05:14 Dose: Not Given Hydromorphone HCl (Dilaudid) 2 mg IVP Q4H PRN PRN Reason: Pain, severe (8-10) Last Admin: 01/13/18 09:56 Dose: 2 mg Fluconazole 100 mg/ (Miscellaneous) 50 mls @ 100 mls/hr IVPB DAILY [facility] PRN Reason: Protocol Last Admin: 01/12/18 09:53 Dose: 100 mls/hr Cefazolin Sodium 2 gm/ Sodium (Chloride) 100 mls @ 200 mls/hr IVPB Q8 [facility] PRN Reason: Protocol Last Admin: 01/13/18 05:16 Dose: 200 mls/hr Fat Emulsion Intravenous (Intralipid 20%) 250 mls @ 21 mls/hr IV MWF@1800 [facility] Multivitamins/Vitamin C 10 ml/Insulin Human Regular 5 units / Amino Acids/ Electrolytes/Dextrose 2,010.05 mls @ 83 mls/hr IV .Q24H [facility] Last Admin: 01/12/18 19:01 Dose: 83 mls/hr Sodium Chloride (Sodium Chloride 0.45%) 1,000 mls @ 150 mls/hr IV .Q6H40M [facility] Last Admin: 01/12/18 23:00 Dose: 150 mls/hr Potassium Chloride (Potassium Chloride 20 Meq/100 Ml) 20 meq in 100 mls @ 50 mls/hr IVPB Q2H [facility] Stop: 01/13/18 12:14 Last Admin: 01/13/18 09:55 Dose: 50 mls/hr Metoprolol Tartrate (Lopressor) 12.5 mg PO BID [facility] Last Admin: 01/13/18 10:01 Dose: 12.5 mg Midodrine (Proamatine) 5 mg PO TID [facility] Last Admin: 01/13/18 09:59 Dose: 5 mg Octreotide Acetate (Sandostatin) 100 mcg SC DAILY [facility] Stop: 01/19/18 15:16 Last Admin: 01/13/18 10:00 Dose: 100 mcg Ondansetron HCl (Zofran Inj) 4 mg IVP Q4H PRN PRN Reason: Nausea/Vomiting Last Admin: 01/09/18 12:21 Dose: 4 mg Pantoprazole Sodium (Protonix Ec Tab) 40 mg PO ACB [facility] Last Admin: 01/13/18 08:00 Dose: 40 mg Potassium Chloride (Potassium Chloride Oral Soln) 40 meq PO ONCE ONE Stop: 01/13/18 15:01 Sodium Bicarbonate (Sodium Bicarbonate Tab) 1,300 mg PO BID [facility] - Labs Labs: 01/13/18 06:00 01/13/18 06:00 PT 14.3 SECONDS (9.4-12.5) H 01/08/18 08:50 INR 1.24 (0.93-1.08) H 01/08/18 08:50 APTT 38.3 Seconds (25.1-36.5) H 01/08/18 08:50
[2018-01-13] MEDS: Fluconazole IV 200mg/100 ml NS 100 MG in Premixed IV 1 EA IVPB SCH (12:38)
--- NOTE | 2018-01-13 13:34 | CP.PCM.PN ---
Subjective - Date & Time of Evaluation Date of Evaluation: 01/13/18 Time of Evaluation: 11:30 - Subjective Subjective: Still having abdominal pain, no fevers, less pain and swelling on the right port area. Objective - Vital Signs/Intake and Output Vital Signs (last 24 hours): Temp Pulse Resp BP Pulse Ox 98.7 F 120 H 18 117/73 100 01/13/18 06:00 01/13/18 06:00 01/13/18 06:00 01/13/18 06:00 01/13/18 06:00 Intake and Output: 01/13/18 01/13/18 06:59 18:59 Intake Total 370 Output Total 1250 Balance -880 - Medications Medications: Current Medications Acetaminophen (Tylenol 325mg Tab) 650 mg PO Q6H PRN PRN Reason: FEVER>=99.5F Last Admin: 01/12/18 05:31 Dose: 650 mg Acetaminophen (Tylenol 650 Mg Supp) 650 mg RC Q6H PRN PRN Reason: TEMP>=99.5F Amitriptyline HCl (Elavil) 25 mg PO HS [facility] Last Admin: 01/12/18 22:51 Dose: 25 mg Gabapentin (Neurontin) 400 mg PO TID [facility] PRN Reason: Protocol Last Admin: 01/12/18 17:20 Dose: 400 mg Heparin Sodium (Porcine) (Heparin) 5,000 units SC Q8 [facility] PRN Reason: Protocol Last Admin: 01/13/18 05:14 Dose: Not Given Hydromorphone HCl (Dilaudid) 2 mg IVP Q4H PRN PRN Reason: Pain, severe (8-10) Last Admin: 01/13/18 05:27 Dose: 2 mg Fluconazole 100 mg/ (Miscellaneous) 50 mls @ 100 mls/hr IVPB DAILY [facility] PRN Reason: Protocol Last Admin: 01/12/18 09:53 Dose: 100 mls/hr Cefazolin Sodium 2 gm/ Sodium (Chloride) 100 mls @ 200 mls/hr IVPB Q8 [facility] PRN Reason: Protocol Last Admin: 01/13/18 05:16 Dose: 200 mls/hr Fat Emulsion Intravenous (Intralipid 20%) 250 mls @ 21 mls/hr IV MWF@1800 [facility] Multivitamins/Vitamin C 10 ml/Insulin Human Regular 5 units / Amino Acids/ Electrolytes/Dextrose 2,010.05 mls @ 83 mls/hr IV .Q24H [facility] Last Admin: 01/12/18 19:01 Dose: 83 mls/hr Sodium Chloride (Sodium Chloride 0.45%) 1,000 mls @ 150 mls/hr IV .Q6H40M [facility] Last Admin: 01/12/18 23:00 Dose: 150 mls/hr Potassium Chloride (Potassium Chloride 20 Meq/100 Ml) 20 meq in 100 mls @ 50 mls/hr IVPB Q2H [facility] Stop: 01/13/18 12:14 Last Admin: 01/13/18 08:21 Dose: 50 mls/hr Metoprolol Tartrate (Lopressor) 12.5 mg PO BID [facility] Last Admin: 01/12/18 17:21 Dose: Not Given Midodrine (Proamatine) 5 mg PO TID [facility] Last Admin: 01/12/18 17:20 Dose: 5 mg Octreotide Acetate (Sandostatin) 100 mcg SC DAILY [facility] Stop: 01/19/18 15:16 Last Admin: 01/12/18 17:48 Dose: 100 mcg Ondansetron HCl (Zofran Inj) 4 mg IVP Q4H PRN PRN Reason: Nausea/Vomiting Last Admin: 01/09/18 12:21 Dose: 4 mg Pantoprazole Sodium (Protonix Ec Tab) 40 mg PO ACB [facility] Last Admin: 01/13/18 08:00 Dose: 40 mg Sodium Bicarbonate (Sodium Bicarbonate Tab) 650 mg PO BID [facility] Last Admin: 01/12/18 17:18 Dose: 650 mg - Labs Labs: 01/13/18 06:00 01/13/18 06:00 PT 14.3 SECONDS (9.4-12.5) H 01/08/18 08:50 INR 1.24 (0.93-1.08) H 01/08/18 08:50 APTT 38.3 Seconds (25.1-36.5) H 01/08/18 08:50 - Constitutional Appears: Cachectic, Chronically Ill - Neck Exam Neck Exam: absent: Meningismus - Respiratory Exam Respiratory Exam: Decreased Breath Sounds - Cardiovascular Exam Cardiovascular Exam: +S1, +S2 - GI/Abdominal Exam GI & Abdominal Exam: Soft. absent: Tenderness Additional comments: PEG tube in place, colostomy in place, right sided nephrostomy tube in place Assessment and Plan - Assessment and Plan (Free Text) Plan: Assessment severe sepsis with acute on chronic renal failure due to Klebsiella bacteremia R /O PICC line-related infection S/P removal, S/P replacement of nephrostomy tube , S/P placement of new right internal jugular vein central venous catheter/ right chest wall port history of sepsis S/P right sided pyelonephritis with associated cystitis, with persistent coagulase negative staph bacteremia probably port/ central line as the source S/P removal pneumobilia and elevated bilirubin, consider S/P cholecystectomy R/O choledocholethiasis carcinoma of GI tract S/P colectomy and ileostomy S/P nephrostomy tube placement on the right 2 years ago history of G-tube placement chronic renal failure Plan since the Klebsiella is sensitive, continue Cefazolin day 4 and will recommend at least 2 weeks of antibiotics from time of PICC removal (day 4 today) will repeat blood cx since leukocytosis is increasing overall prognosis is poor
--- NOTE | 2018-01-13 13:49 | PN ---
DATE: 01/13/2018 SUBJECTIVE: The patient is lying in bed comfortable. He remains weak. He has intermittent diffuse abdominal pain. He denies any vomiting. PHYSICAL EXAMINATION: VITAL SIGNS: Reveal temperature OF 98.7, blood pressure 120/78, heart rate of 100. HEENT: Reveals sclerae to be slightly icteric. Conjunctivae pale. NECK: Supple. CHEST: Reveals distant breath sounds. HEART: Reveals regular rate and rhythm. ABDOMEN: Soft. He has a right percutaneous nephrostomy and his right flank draining bloody urine. He has a left upper quadrant gastrostomy tube draining bilious fluid. He has a left lower quadrant ileostomy. There is mild diffuse tenderness. EXTREMITIES: Show no edema. LABORATORY DATA: Reveal white blood cell count up to 31.2, hemoglobin 9.3, platelet count of 204,000. Chemistries reveal potassium of 3.1, BUN 37, creatinine 1.2, total bilirubin is down to 6.4, AST 57, ALT 32, alkaline phosphatase of 481. 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 The patient's long-term prognosis is poor. The patient did have positive blood cultures with Klebsiella pneumonia, most likely secondary to pyelonephritis. His LFTs are starting to trend downward. This may be related to meropenem and hepatotoxicity versus tumor involving the hepatobiliary tract versus sepsis. CT scan of the abdomen and pelvis performed this admission did not reveal biliary obstruction. There was air in the biliary tract from prior instrumentation. RECOMMENDATIONS: 1. Continue supportive care. 2. Awaiting the patient and 's decision on palliative care. His long-term prognosis is extremely poor. Ezequiel Olivo MD
[2018-01-13] MEDS ORDERED: Potassium Chloride 40 mEq/30 ml LIQ UD PO ONE (15:00)
--- NOTE | 2018-01-13 15:02 | PN ---
DATE: 01/13/2018 SUBJECTIVE: The patient is seen lying in the bed in room 575, bed 1. The patient is in the process of being cleaned by the nurses. The patient does not appear to be in any distress. But requesting more pain medication. The patient's vital signs was reviewed. The patient's blood pressure has been on the low side. Patient was advised that if his objective data, blood pressure and vital signs permit, the patient's pain medications will be considered to be increased. The patient was seen lying in the bed. The patient appears to be comfortable/. PHYSICAL EXAMINATINO: VITAL SIGNS: T-max 98.7, 97.8. Heart rate low 100, 105, 104, 111. Respirations 18-20/ Blood pressure is 101/50, 98-70. O2 sat mid to high 90%. The patient is seen lying in the bed. Head examination normocephalic, atraumatic. HEENT examination shows pinkish pale conjunctivae. Icteric sclerae. No oropharyngeal lesion. No neck rigidity. Chest: Examination shows right upper chest Port-A-Cath. Chest examination kyphosis: Questionable decreased breath sound at the bases, left more than the right. Cardiovascular examination. S1, S2, regular rhythm. Questionable soft systolic murmur, left sternal border, right second intercostal space, left second intercostal space. Abdomen: Is soft. Positive bowel sound could. Positive colostomy, positive gastrostomy noted. Site appears to be clean. Genitalia: Male. Extremity shows no pitting edema, no tenderness no signs. Poor nail hygiene noted. Musculoskeletal: Examination shows a decreased muscle loss as per the weight and height. Neurologic: The patient is alert, awake, responsive, is able to move upper and lower extremity without assistance. Gait examination is not tested. Musculoskeletal: Shows decreased muscle mass. DIAGNOSTICS The patient's CBC shows a persistently elevated WBC count of greater than 20,000, hemoglobin/hematocrit is 9.7. The 28th platelets were reviewed. Granulocytes are high. Chemistry was reviewed. The patient's renal profile has improved. The patient's bilirubin. Bilirubin total and direct bilirubin and transaminases are still elevated. Albumin is slightly low. Chest x-ray Was done yesterday for evaluation of the Port-A-Cath since there was some extravasation from the Port-A-Cath site, which was negative for pneumothorax. Port-A-Cath is in intact place. The patient has been followed by Nephrology, Infectious Disease. IMPRESSION AND PLAN: 1. Possible septic shock with hypotension, tachycardia versus severe sepsis with multiple organ dysfunction syndrome. 2. Klebsiella pneumoniae bacteremia. 3. Funguria. 4. Narcotic-dependent pain syndrome of malignancy. 5. Cachexia of malignancy. 6. Persistent refractory leukocytosis with granulocytosis and bandemia. 7. Acute renal failure (resolving ) with prerenal component. 8. Severe transaminitis. 9. Hyperbilirubinemia. 10. History of gastrointestinal carcinoid. 11. Severe deconditioning and gait dysfunction. 12. Cachexia of malignancy. 13. Hypotension. 14. Tachycardia. 15. Chronic bowel obstruction with chronic hyperalimentation dependence. 17. Feeding dysfunction. 18. History of right upper chest Port-A-Cath removal. 19. Status post new right upper chest Port-A-Cath placement. DIAGNOSES: 1. Status post left upper extremity peripherally inserted central catheter line placement and removal. 2. Recurrent bacteremia and sepsis. 3. History of gastrointestinal carcinoid. 4. Read right percutaneous nephrostomy placement and revision and replacement. 5. History of ileostomy, colectomy, history of gastrostomy. 6. Poor performance status. 7. Klebsiella pneumoniae bacteremia. Plan at this time, the patient is to be continued on therapeutic intervention as per all the subspecialty involved in the care of the patient. The patient has been advised and updated about his condition, diagnoses. The patient has been again reinforced about his overall guarded to poor prognosis, which he has completely understood and understands all the details. The patient's code status is still full code. The patient has not finally decided about his living will advance directive and code status. I have spoken to the patient's finally via the patient's telephone and I have explained to the patient's about the patient's deteriorating medical condition and poor prognosis, which she acknowledges and understand and the patient acknowledges and understand. After my discussion with the patient's , the patient's and the daughters were supposed to meet with Palliative Care nurse, Loyda Marinelli, which I am not sure if the family has met with them. The patient will be continued on the above therapeutic intervention as discussed. The patient will be continued on medications as per the MAR of today. The patient will be continued on total parenteral nutrition. The patient will be continued on IV antibiotics. As per Infectious Disease, the patient will be continued on intravenous analgesics for pain control. The patient will be continued on gastrointestinal/deep venous thromboses prophylaxis. Dictated and electronically signed, not read. Sergio Wagner MD
[2018-01-13 16:32] LABS: ALB/GLOB RATIO 0.7 (1.1-1.8); ALBUMIN 2.5 g/dL (3.0-4.8); ALT/SGPT 29 U/L (7-56); AST/SGOT 47 U/L (17-59); BLOOD UREA NITROGEN 37 mg/dL (7-21); CALCIUM 9.6 mg/dL (8.4-10.5); GFR AFRICAN-AMERICAN > 60; GFR NON-AFRICAN AMERICAN > 60
[2018-01-13 19:27] LABS: URINE BILIRUBIN MODERATE (NEGATIVE); URINE BLOOD LARGE (NEGATIVE); URINE GLUCOSE (UA) 100 mg/dL (NEGATIVE); URINE LEUKOCYTE ESTERASE SMALL Leu/uL (NEGATIVE); URINE PROTEIN 100 mg/dL (<30 mg/dL); URINE UROBILINOGEN 0.2 E.U./dL (<1 E.U./dL)
[2018-01-13 19:30] LABS: URINE APPEARANCE SL CLOUDY (CLEAR); URINE COLOR DARK YELLOW (YELLOW)
[2018-01-13 19:31] LABS: URINE RBC TNTC /hpf (0-2)
[2018-01-13 19:33] LABS: URINE BACTERIA FEW (NEG); URINE EPITHELIAL CELLS 0 - 2 /hpf (0-5)
[2018-01-13 19:34] LABS: URINE COARSE GRANULAR CAST TRACE /hpf (0-2)
[2018-01-13] MEDS: Fat Emulsion 20% IV 250 ML IV SCH (19:56)
[2018-01-14] MEDS: HYDROmorphone 2 mg/ml ISec IVP PRN ×6 (00:21→23:33)
[2018-01-14] MEDS: ceFAZolin 2 GM in Sodium Chloride 0.9% 100 ML IVPB SCH ×3 (05:06→21:37)
[2018-01-14 06:23] LABS: ALB/GLOB RATIO 0.7 (1.1-1.8); ALBUMIN 2.4 g/dL (3.0-4.8); ALT/SGPT 33 U/L (7-56); AST/SGOT 74 U/L (17-59); BILIRUBIN,DIRECT 5.5 mg/dL (0.0-0.4); BLOOD UREA NITROGEN 38 mg/dL (7-21); CALCIUM 9.8 mg/dL (8.4-10.5); GFR AFRICAN-AMERICAN > 60; GFR NON-AFRICAN AMERICAN > 60
[2018-01-14] MEDS: Fluconazole IV 200mg/100 ml NS 100 MG in Premixed IV 1 EA IVPB SCH (09:10)
[2018-01-14] MEDS ORDERED: Potassium Chloride 40 mEq/30 ml LIQ UD PO SCH (09:15)
[2018-01-14] MEDS: Pantoprazole 40 mg EC Tab PO SCH (09:24)
[2018-01-14] MEDS: Ammonium Lactate 12% Lotion (225 g) EXT SCH (09:53)
--- NOTE | 2018-01-14 11:47 | CP.PCM.PN ---
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 Maintain hemodynamics stable. avoid hypotension. Patient not on ACEI/ARB due to PRANAV and low BP Monitor Input/Output, daily weights and renal function with basic metabolic panel supplements electrolytes as needed pt now on TPN. started developing edema hence will d/c IVF. ID, GI and urology involved Increased sodium bicarb 1300 mg bid Anemia management as per heme/onc or primary team consider octreotide to reduce GI fluid loss, d/w team and agreed. supplement lytes as needed, ordered for KCL today Dose meds/antibiotics for improved GFR. Glycemic control Further work up/management as per primary team Thanks for allowing me to participate in care of your patient. Will follow with you. Please call if any Qs. had d/w and team Dr Eric Oseguera Office: [phone] Reason for consult: PRANAV HPI: Pt is a 62 M with hx of carcinoma of GI tract S/P colectomy and ileostomy, S/P Rt nephrostomy tube placement 2 years ago, history of G-tube placement, on TPN at home presented with c/o bloody urine output from the nephrostomy tube and also worsening abdomen pain for last few days. overall symptoms worsening. renal consult for PRANAV. pt with lactic acidosis and hyperbilir as well. Denies OTC/herbal meds or NSAIDs No recent iodinated contrast exposure. Noted episode of low BP (96/52). ROS: feels better Cardiovascular: No chest pain. Pulmonary: No shortness of breath Gastrointestinal: c/o abdominal pain denies nausea. No vomiting. Genitourinary: No pain while urinating. s/p nephrostomy tube change 01/10/18 All other negative except as in HPI Physical Examination: General Appearance: comfortable, in no acute respiratory distress, co-operative . ill appearing Vitals reviewed and noted as below Head; Atraumatic, normocephalic ENT: no ulcers no thrush. Tongue is midline/coated. Oropharynx: no rash or ulcers. EYES: Pupils are equal, round and reactive to light accommodation. Eye muscles and extraocular movement intact. Sclera is icteric. Neck; supple no lymphadenopathy, no thyromegaly or bruit. has echymose around portacath Lungs: Normal respiratory rate/effort. Breath sounds bilateral equal and clear Heart: Increased rate. s1s2 normal. No rub or gallop. Extremities: ankle edema. No varicose veins Neurological: Patient is awake alert follows command Skin: Warm and dry. Normal turgor. No rash. Palpitation: Normal elasticity for age Abdomen: Abdomen is soft. Bowel sounds +. There is no abdominal tenderness, no guarding/rigidity no organomegaly. has iletostomy and G tube Psych: normal insight and normal affect/mood MSK: no joint tenderness or swelling. Digits and nails normal, no deformity : kidney or bladder not palpable. has Rt nephrostomy tube draining clearer urine Labs/imaging reviewed. Past medical history, past surgical history, family history, social history, allergy reviewed and noted as below Family hx: no hx of CKD. Rest non-contributory renal imaging WNL Objective - Vital Signs/Intake and Output Vital Signs (last 24 hours): Temp Pulse Resp BP Pulse Ox 97.6 F 97 H 18 112/78 99 01/14/18 06:00 01/14/18 09:11 01/14/18 06:00 01/14/18 09:11 01/14/18 06:00 Intake and Output: 01/14/18 01/14/18 06:59 18:59 Intake Total 660 Output Total 2670 Balance -2009 - Medications Medications: Current Medications Acetaminophen (Tylenol 325mg Tab) 650 mg PO Q6H PRN PRN Reason: FEVER>=99.5F Last Admin: 01/12/18 05:31 Dose: 650 mg Acetaminophen (Tylenol 650 Mg Supp) 650 mg RC Q6H PRN PRN Reason: TEMP>=99.5F Amitriptyline HCl (Elavil) 25 mg PO HS TAMMY Last Admin: 01/13/18 21:23 Dose: Not Given Gabapentin (Neurontin) 400 mg PO TID TAMMY PRN Reason: Protocol Last Admin: 01/14/18 09:14 Dose: 400 mg Heparin Sodium (Porcine) (Heparin) 5,000 units SC Q8 TAMMY PRN Reason: Protocol Last Admin: 01/14/18 06:00 Dose: Not Given Hydromorphone HCl (Dilaudid) 2 mg IVP Q4H PRN PRN Reason: Pain, severe (8-10) Last Admin: 01/14/18 09:21 Dose: 2 mg Cefazolin Sodium 2 gm/ Sodium (Chloride) 100 mls @ 200 mls/hr IVPB Q8 TAMMY PRN Reason: Protocol Last Admin: 01/14/18 05:06 Dose: 200 mls/hr Fat Emulsion Intravenous (Intralipid 20%) 250 mls @ 21 mls/hr IV MWF@1800 [facility] Last Admin: 01/13/18 19:56 Dose: 21 mls/hr Multivitamins/Vitamin C 10 ml/Insulin Human Regular 5 units / Amino Acids/ Electrolytes/Dextrose 2,010.05 mls @ 83 mls/hr IV .Q24H [facility] Last Admin: 01/13/18 19:57 Dose: 83 mls/hr Potassium Chloride (Potassium Chloride 20 Meq/100 Ml) 20 meq in 100 mls @ 50 mls/hr IVPB Q2H [facility] Stop: 01/14/18 15:14 Last Admin: 01/14/18 10:35 Dose: 50 mls/hr Lactic Acid (Lac-Hydrin 12% Lotion (225 G)) 0 gm EXT DAILY [facility] Last Admin: 01/14/18 09:53 Dose: 1 applic Metoprolol Tartrate (Lopressor) 12.5 mg PO BID [facility] Last Admin: 01/14/18 09:11 Dose: 12.5 mg Midodrine (Proamatine) 5 mg PO TID [facility] Last Admin: 01/14/18 09:24 Dose: 5 mg Octreotide Acetate (Sandostatin) 100 mcg SC DAILY [facility] Stop: 01/19/18 15:16 Last Admin: 01/14/18 09:54 Dose: 100 mcg Ondansetron HCl (Zofran Inj) 4 mg IVP Q4H PRN PRN Reason: Nausea/Vomiting Last Admin: 01/14/18 00:21 Dose: 4 mg Pantoprazole Sodium (Protonix Ec Tab) 40 mg PO ACB [facility] Last Admin: 01/14/18 09:24 Dose: 40 mg Sodium Bicarbonate (Sodium Bicarbonate Tab) 1,300 mg PO BID TAM[facility] Last Admin: 01/14/18 09:15 Dose: 1,300 mg - Labs Labs: 01/13/18 06:00 01/14/18 05:40 PT 14.3 SECONDS (9.4-12.5) H 01/08/18 08:50 INR 1.24 (0.93-1.08) H 01/08/18 08:50 APTT 38.3 Seconds (25.1-36.5) H 01/08/18 08:50
[2018-01-14 12:57] LABS: BASO # 0.03 K/mm3 (0.0-2.0); BASO % 0.1 % (0.0-3.0); EOS # 0.5 (0.0-0.7); EOS % 1.8 % (1.5-5.0); GRAN # 22.18 (1.4-6.5); GRAN % 85.9 % (50.0-68.0); HEMOGLOBIN 9.4 g/dL (14.0-18.0); LYMPH # 1.3 (1.2-3.4); LYMPH % 5.1 % (22.0-35.0); MEAN CELL VOLUME 85.1 fl (80.0-105.0); MEAN CORPUSCULAR HEMOGLOBIN 29.2 pg (25.0-35.0); MEAN CORPUSCULAR HGB CONC 34.3 g/dl (31.0-37.0); MEAN PLATELET VOLUME 12.3 fl (7.0-11.0); MONO # 1.8 (0.1-0.6); MONO % 7.1 % (1.0-6.0); RBC 3.22 10^6/uL (3.5-6.1); RED CELL DISTRIBUTION WIDTH 16.8 % (11.5-14.5)
[2018-01-14 12:59] LABS: WHITE BLOOD COUNT 25.8 10^3/ul (4.5-11.0)
--- NOTE | 2018-01-14 13:56 | CP.PCM.PN ---
Subjective - Date & Time of Evaluation Date of Evaluation: 01/14/18 Time of Evaluation: 13:10 - Subjective Subjective: Less pain in the right neck, still with abdominal pain, no fevers. Objective - Vital Signs/Intake and Output Vital Signs (last 24 hours): Temp Pulse Resp BP Pulse Ox 97.6 F 97 H 18 112/78 99 01/14/18 06:00 01/14/18 09:11 01/14/18 06:00 01/14/18 09:11 01/14/18 06:00 Intake and Output: 01/14/18 01/14/18 06:59 18:59 Intake Total 660 Output Total 2670 -2009 - Medications Medications: Current Medications Acetaminophen (Tylenol 325mg Tab) 650 mg PO Q6H PRN PRN Reason: FEVER>=99.5F Last Admin: 01/12/18 05:31 Dose: 650 mg Acetaminophen (Tylenol 650 Mg Supp) 650 mg RC Q6H PRN PRN Reason: TEMP>=99.5F Amitriptyline HCl (Elavil) 25 mg PO HS [facility] Last Admin: 01/13/18 21:23 Dose: Not Given Gabapentin (Neurontin) 400 mg PO TID TAMMY PRN Reason: Protocol Last Admin: 01/14/18 09:14 Dose: 400 mg Heparin Sodium (Porcine) (Heparin) 5,000 units SC Q8 TAMMY PRN Reason: Protocol Last Admin: 01/14/18 06:00 Dose: Not Given Hydromorphone HCl (Dilaudid) 2 mg IVP Q4H PRN PRN Reason: Pain, severe (8-10) Last Admin: 01/14/18 09:21 Dose: 2 mg Cefazolin Sodium 2 gm/ Sodium (Chloride) 100 mls @ 200 mls/hr IVPB Q8 [facility] PRN Reason: Protocol Last Admin: 01/14/18 05:06 Dose: 200 mls/hr Fat Emulsion Intravenous (Intralipid 20%) 250 mls @ 21 mls/hr IV MWF@1800 [facility] Last Admin: 01/13/18 19:56 Dose: 21 mls/hr Multivitamins/Vitamin C 10 ml/Insulin Human Regular 5 units / Amino Acids/ Electrolytes/Dextrose 2,010.05 mls @ 83 mls/hr IV .Q24H [facility] Last Admin: 01/13/18 19:57 Dose: 83 mls/hr Potassium Chloride (Potassium Chloride 20 Meq/100 Ml) 20 meq in 100 mls @ 50 mls/hr IVPB Q2H [facility] Stop: 01/14/18 15:14 Last Admin: 01/14/18 10:35 Dose: 50 mls/hr Lactic Acid (Lac-Hydrin 12% Lotion (225 G)) 0 gm EXT DAILY [facility] Last Admin: 01/14/18 09:53 Dose: 1 applic Metoprolol Tartrate (Lopressor) 12.5 mg PO BID [facility] Last Admin: 01/14/18 09:11 Dose: 12.5 mg Midodrine (Proamatine) 5 mg PO TID [facility] Last Admin: 01/14/18 09:24 Dose: 5 mg Octreotide Acetate (Sandostatin) 100 mcg SC DAILY [facility] Stop: 01/19/18 15:16 Last Admin: 01/14/18 09:54 Dose: 100 mcg Ondansetron HCl (Zofran Inj) 4 mg IVP Q4H PRN PRN Reason: Nausea/Vomiting Last Admin: 01/14/18 00:21 Dose: 4 mg Pantoprazole Sodium (Protonix Ec Tab) 40 mg PO ACB [facility] Last Admin: 01/14/18 09:24 Dose: 40 mg Sodium Bicarbonate (Sodium Bicarbonate Tab) 1,300 mg PO BID [facility] Last Admin: 01/14/18 09:15 Dose: 1,300 mg - Labs Labs: 01/13/18 06:00 01/14/18 05:40 PT 14.3 SECONDS (9.4-12.5) H 01/08/18 08:50 INR 1.24 (0.93-1.08) H 01/08/18 08:50 APTT 38.3 Seconds (25.1-36.5) H 01/08/18 08:50 - Constitutional Appears: Cachectic, Chronically Ill - Head Exam Head Exam: NORMAL INSPECTION - ENT Exam ENT Exam: Mucous Membranes Moist - Neck Exam Neck Exam: absent: Meningismus - Respiratory Exam Respiratory Exam: Decreased Breath Sounds Additional comments: right anterior chest wall port with slowly resolving surrounding hematoma - Cardiovascular Exam Cardiovascular Exam: +S1, +S2 - GI/Abdominal Exam GI & Abdominal Exam: Soft. absent: Tenderness Assessment and Plan - Assessment and Plan (Free Text) Plan: Assessment severe sepsis with acute on chronic renal failure due to Klebsiella bacteremia R /O PICC line-related infection S/P removal, S/P replacement of nephrostomy tube , S/P placement of new right internal jugular vein central venous catheter/ right chest wall port history of sepsis S/P right sided pyelonephritis with associated cystitis, with persistent coagulase negative staph bacteremia probably port/ central line as the source S/P removal pneumobilia and elevated bilirubin, consider S/P cholecystectomy R/O choledocholethiasis 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
--- NOTE | 2018-01-14 14:16 | CON ---
DATE: 01/14/2018 HISTORY OF PRESENT ILLNESS: A 62-year-old pleasant male, seen at bedside for consultation, evaluation and management of painful bilateral feet. PAST MEDICAL HISTORY: The patient's medical history is significant for polynephritis, right nephrostomy tube, G-tube, chronic bowel obstruction, carcinoid tumor. PAST SURGICAL HISTORY: Includes colectomy and ileostomy. SOCIAL HISTORY: The patient is a nonsmoker. Denies any illicit drug use. Does not drink alcohol and lives with his and children. FAMILY HISTORY: Noncontributory. MEDICATIONS: All medications are noted in the MAR. PHYSICAL EXAMINATION: VITAL SIGNS: Revealed temperature of 98, pulse rate of 75, blood pressure of 139/89, respiratory rate of 18. LABORATORY FINDINGS: Reveal white count of 31.2, hemoglobin of 9.3, hematocrit of 26.9, platelet count of 204. His ESR is 122. Most recent blood culture reveals no growth after three days. OBJECTIVE: Nonpalpable posterior tibial pulse, weakly palpable dorsalis pedis pulse noted bilaterally. Capillary filling time is delayed x10. The patient is unable to detect 5.07 g monofilament wire testing bilaterally. Lower extremity skin presents thin, shining discolored. There is noted to be no edema. There are no open lesions noted. No interdigital macerations. All nail plates are noted to be elongated, dystrophic, discolored with severe subungual fungal debris and pain upon palpation. ASSESSMENT: Painful onychomycosis bilaterally. PLAN: The patient was examined. Both feet were cleansed with normal sterile saline. Excisional debridement was performed on all nail plates. We will order Lac-Hydrin to be applied to both legs and feet daily. The patient will be seen and followed as needed. Devin Alonzo DPM
--- NOTE | 2018-01-14 18:17 | PN ---
DATE: 01/14/2018 SUBJECTIVE: The patient is seen in room 575, bed 1. Overnight nurse's notes were reviewed. The patient has hardly been out of bed to recliner. The patient appears to be sleepy as usual. The patient was alert, awake, responsive. Overnight nurse's notes were reviewed. The patient has been receiving intermittent p.r.n. analgesics. PHYSICAL EXAMINATION: VITAL SIGNS: T-max 97.6, pulse 97 to 75 beats per minute, blood pressure 112/78, respiration 18, O2 sat 99%. HEENT: Head: Normocephalic, atraumatic. HEENT examination shows pale conjunctivae, icteric sclerae. No oropharyngeal lesion. NECK: No neck rigidity. CHEST: Kyphosis. Positive right upper chest Port-A-Cath. LUNGS: Shows questionable decreased breath sound at the bases, left more than the right. No rales, crackles or wheezing. CARDIOVASCULAR: S1 and S2, regular rhythm. Positive systolic murmur, left sternal border, right second intercostal space. ABDOMEN: Soft, positive ileostomy, colostomy, positive gastrostomy noted. GENITALIA: Male. EXTREMITIES: Shows no pitting edema, no calf tenderness, no Homans' signs. NEUROLOGICAL: The patient is alert, awake, arousable, responsive. Follows command. Moves upper and lower extremity without assistance. Gait examination is not tested. PSYCHIATRIC: Not applicable. DIAGNOSTICS: On 01/14/2018, WBC count is 31.2, hemoglobin and hematocrit are 9.7 and 27, platelet 204, 92 segs, 3 bands. ESR is 122. Sodium 143, potassium 3.1, chloride 113, CO2 20, BUN down to 38, creatinine down to 1.1, glucose 137, total bili 6.3, direct bili 5.5, AST 74, alkaline phosphatase 494, albumin 2.4. Microbiology cultures: Blood cultures growing Klebsiella pneumoniae; after that, repeat blood cultures are negative. Urine cultures are growing yeast. The patient today's CBC is pending. The CBC dictated above is from 01/13/2018. IMPRESSION: 1. Klebsiella pneumoniae bacteremia and sepsis. 2. Status post possible septic shock with hypotension, tachycardia. 3. Severe sepsis with multiorgan dysfunction syndrome. 4. Advanced gastrointestinal carcinoid. 5. Hypotension. 6. Tachycardia. 7. Persistent refractory leukocytosis with bandemia and granulocytosis. 8. Normocytic anemia. 9. Status post packed red blood cell transfusion. 10. Hyperprolactinemia. 11. Elevated erythrocyte sedimentation rate of 122. 12. Hypokalemia. 13. Resolving acute kidney injury versus prerenal kidney injury. 14. Hyperbilirubinemia. 15. Severe transaminitis. 16. Mild to moderate hypoalbuminemia. 17. Rlyg-ir-hancurbo malnutrition. 18. urinary tract infection. 19. Status post right upper chest Port-A-Cath removal and implant of the new right upper chest via the internal jugular vein right upper chest new Port-A-Cath placement. 20. Status post left upper extremity PICC line placement. 21. Status post right percutaneous nephrostomy, status post colostomy, ileostomy, status post gastrostomy. 22. Status post colectomy. 23. Advanced gastrointestinal carcinoid tumor status post chemotherapy. 24. Gait dysfunction. 25. Deconditioning. 26. Narcotic-dependent pain syndrome of malignancy. 27. Cachexia of malignancy. PLAN AT THIS TIME: The patient is to be continued on IV fluid as per Nephrology. The patient has been ordered potassium supplementation as per Nephrology. The patient is to be continued on IV antibiotics as per Infectious Disease. The patient is to be continued on hyperalimentation as per the PPN order. The patient has been ordered out of bed to chair. The patient has been ordered physical therapy, occupational therapy, ambulation therapy, gait training. The patient will be continued on intravenous analgesics. The patient has been encouraged to be out of bed and the patient was encouraged to increase activity. Physical therapy, occupational therapy, ambulation therapy, gait training ordered. The patient's current medications will be as per the MAR. The patient has been ordered DVT and GI prophylaxis. We are still awaiting decision regarding the patient's living will and advance directive and code status. The patient at present is full code. The patient's family was supposed to meet with the palliative care nurses. The patient's overall prognosis is extremely guarded to poor, which he has been explained about and I have also explained the above to the patient's on the phone at length and all questions and concerns answered. Dictated and electronically signed, not read. Sergio Kristy, MD
[2018-01-15] MEDS: ceFAZolin 2 GM in Sodium Chloride 0.9% 100 ML IVPB SCH ×3 (05:06→21:40)
[2018-01-15] MEDS: HYDROmorphone 2 mg/ml ISec IVP PRN ×4 (05:06→22:03)
[2018-01-15 07:32] LABS: BASO # 0.03 K/mm3 (0.0-2.0); BASO % 0.2 % (0.0-3.0); EOS # 0.5 (0.0-0.7); EOS % 2.8 % (1.5-5.0); GRAN # 14.97 (1.4-6.5); GRAN % 81.9 % (50.0-68.0); HEMOGLOBIN 8.5 g/dL (14.0-18.0); LYMPH # 1.1 (1.2-3.4); MEAN CELL VOLUME 86.1 fl (80.0-105.0); MEAN CORPUSCULAR HEMOGLOBIN 29.6 pg (25.0-35.0); MEAN CORPUSCULAR HGB CONC 34.4 g/dl (31.0-37.0); MONO # 1.7 (0.1-0.6); MONO % 9.1 % (1.0-6.0); RBC 2.87 10^6/uL (3.5-6.1); RED CELL DISTRIBUTION WIDTH 16.7 % (11.5-14.5); WHITE BLOOD COUNT 18.3 10^3/ul (4.5-11.0)
[2018-01-15 07:52] LABS: ALB/GLOB RATIO 0.6 (1.1-1.8); ALBUMIN 2.3 g/dL (3.0-4.8); ALT/SGPT 27 U/L (7-56); AST/SGOT 108 U/L (17-59); BILIRUBIN,DIRECT 6.4 mg/dL (0.0-0.4); BLOOD UREA NITROGEN 35 mg/dL (7-21); CALCIUM 9.7 mg/dL (8.4-10.5); GFR AFRICAN-AMERICAN > 60; GFR NON-AFRICAN AMERICAN > 60
[2018-01-15] MEDS: Ammonium Lactate 12% Lotion (225 g) EXT SCH (10:23)
[2018-01-15] MEDS: Potassium Chloride 20 mEq/15 ml LIQ UD PO SCH ×3 (10:25→18:53)
[2018-01-15] MEDS: Pantoprazole 40 mg EC Tab PO SCH (10:26)
--- NOTE | 2018-01-15 14:50 | CP.PCM.PN ---
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 Maintain hemodynamics stable. avoid hypotension. Patient not on ACEI/ARB due to PRANAV and low BP Monitor Input/Output, daily weights and renal function with basic metabolic panel supplements electrolytes as needed pt now on TPN. ID, GI and urology involved Increased sodium bicarb 1300 mg bid Anemia management as per heme/onc or primary team consider octreotide to reduce GI fluid loss, d/w team and agreed. supplement lytes as needed, ordered for KCL Dose meds/antibiotics for improved GFR. Glycemic control Further work up/management as per primary team Thanks for allowing me to participate in care of your patient. Will follow with you. Please call if any Qs. had d/w and team Dr Eric Oseguera Office: [phone] Reason for consult: PRANAV HPI: Pt is a 62 M with hx of carcinoma of GI tract S/P colectomy and ileostomy, S/P Rt nephrostomy tube placement 2 years ago, history of G-tube placement, on TPN at home presented with c/o bloody urine output from the nephrostomy tube and also worsening abdomen pain for last few days. overall symptoms worsening. renal consult for PRANAV. pt with lactic acidosis and hyperbilir as well. Denies OTC/herbal meds or NSAIDs No recent iodinated contrast exposure. Noted episode of low BP (96/52). ROS: feels better Cardiovascular: No chest pain. Pulmonary: No shortness of breath Gastrointestinal: c/o abdominal pain denies nausea. No vomiting. Genitourinary: No pain while urinating. s/p nephrostomy tube change 01/10/18 All other negative except as in HPI Physical Examination: General Appearance: comfortable, in no acute respiratory distress, co-operative . ill appearing Vitals reviewed and noted as below Head; Atraumatic, normocephalic ENT: no ulcers no thrush. Tongue is midline/coated. Oropharynx: no rash or ulcers. EYES: Pupils are equal, round and reactive to light accommodation. Eye muscles and extraocular movement intact. Sclera is icteric. Neck; supple no lymphadenopathy, no thyromegaly or bruit. has echymose around portacath Lungs: Normal respiratory rate/effort. Breath sounds bilateral equal and clear Heart: Increased rate. s1s2 normal. No rub or gallop. Extremities: ankle edema. No varicose veins Neurological: Patient is awake alert follows command Skin: Warm and dry. Normal turgor. No rash. Palpitation: Normal elasticity for age Abdomen: Abdomen is soft. Bowel sounds +. There is no abdominal tenderness, no guarding/rigidity no organomegaly. has iletostomy and G tube Psych: normal insight and normal affect/mood MSK: no joint tenderness or swelling. Digits and nails normal, no deformity : kidney or bladder not palpable. has Rt nephrostomy tube draining clearer urine Labs/imaging reviewed. Past medical history, past surgical history, family history, social history, allergy reviewed and noted as below Family hx: no hx of CKD. Rest non-contributory renal imaging WNL Objective - Vital Signs/Intake and Output Vital Signs (last 24 hours): Temp Pulse Resp BP Pulse Ox 98.9 F 97 H 18 123/77 98 01/15/18 06:00 01/14/18 22:00 01/15/18 06:00 01/15/18 06:00 01/15/18 06:00 Intake and Output: 01/15/18 01/15/18 06:59 18:59 Intake Total 1896 120 Output Total 2550 Balance -654 120 - Medications Medications: Current Medications Acetaminophen (Tylenol 325mg Tab) 650 mg PO Q6H PRN PRN Reason: FEVER>=99.5F Last Admin: 01/15/18 00:58 Dose: 650 mg Acetaminophen (Tylenol 650 Mg Supp) 650 mg RC Q6H PRN PRN Reason: TEMP>=99.5F Amitriptyline HCl (Elavil) 25 mg PO HS [facility] Last Admin: 01/14/18 21:37 Dose: 25 mg Gabapentin (Neurontin) 400 mg PO TID [facility] PRN Reason: Protocol Last Admin: 01/15/18 10:25 Dose: 400 mg Heparin Sodium (Porcine) (Heparin) 5,000 units SC Q8 [facility] PRN Reason: Protocol Last Admin: 01/15/18 05:06 Dose: 5,000 units Hydromorphone HCl (Dilaudid) 2 mg IVP Q4H PRN PRN Reason: Pain, severe (8-10) Last Admin: 01/15/18 10:18 Dose: 2 mg Cefazolin Sodium 2 gm/ Sodium (Chloride) 100 mls @ 200 mls/hr IVPB Q8 [facility] PRN Reason: Protocol Last Admin: 01/15/18 05:06 Dose: 200 mls/hr Fat Emulsion Intravenous (Intralipid 20%) 250 mls @ 21 mls/hr IV MWF@1800 [facility] Last Admin: 01/13/18 19:56 Dose: 21 mls/hr Multivitamins/Vitamin C 10 ml/Insulin Human Regular 5 units / Amino Acids/ Electrolytes/Dextrose 2,010.05 mls @ 83 mls/hr IV .Q24H [facility] Last Admin: 01/14/18 18:24 Dose: 83 mls/hr Lactic Acid (Lac-Hydrin 12% Lotion (225 G)) 0 gm EXT DAILY [facility] Last Admin: 01/15/18 10:23 Dose: 1 applic Metoprolol Tartrate (Lopressor) 12.5 mg PO BID [facility] Last Admin: 01/15/18 10:23 Dose: 12.5 mg Midodrine (Proamatine) 5 mg PO TID [facility] Last Admin: 01/15/18 10:25 Dose: 5 mg Octreotide Acetate (Sandostatin) 100 mcg SC DAILY [facility] Stop: 01/19/18 15:16 Last Admin: 01/15/18 10:36 Dose: 100 mcg Ondansetron HCl (Zofran Inj) 4 mg IVP Q4H PRN PRN Reason: Nausea/Vomiting Last Admin: 01/15/18 08:38 Dose: 4 mg Pantoprazole Sodium (Protonix Ec Tab) 40 mg PO ACB [facility] Last Admin: 01/15/18 10:26 Dose: 40 mg Potassium Chloride (Potassium Chloride Oral Soln) 20 meq PO BID [facility] Stop: 01/20/18 10:01 Last Admin: 01/15/18 10:25 Dose: 20 meq Sodium Bicarbonate (Sodium Bicarbonate Tab) 1,300 mg PO BID [facility] Last Admin: 01/15/18 10:26 Dose: 1,300 mg - Labs Labs: 01/15/18 07:00 01/15/18 07:00 PT 14.3 SECONDS (9.4-12.5) H 01/08/18 08:50 INR 1.24 (0.93-1.08) H 01/08/18 08:50 APTT 38.3 Seconds (25.1-36.5) H 01/08/18 08:50
--- NOTE | 2018-01-15 14:51 | CP.PCM.PN ---
Subjective - Date & Time of Evaluation Date of Evaluation: 01/15/18 Time of Evaluation: 11:15 - Subjective Subjective: Still with abdominal pain, still feels weak, no fevers, no diarrhea. Objective - Vital Signs/Intake and Output Vital Signs (last 24 hours): Temp Pulse Resp BP Pulse Ox 98 F 97 H 20 110/74 100 01/14/18 22:00 01/14/18 22:00 01/14/18 22:00 01/14/18 22:00 01/14/18 22:00 Intake and Output: 01/15/18 01/15/18 06:59 18:59 Intake Total 1896 Output Total 2550 Balance -654 - Medications Medications: Current Medications Acetaminophen (Tylenol 325mg Tab) 650 mg PO Q6H PRN PRN Reason: FEVER>=99.5F Last Admin: 01/15/18 00:58 Dose: 650 mg Acetaminophen (Tylenol 650 Mg Supp) 650 mg RC Q6H PRN PRN Reason: TEMP>=99.5F Amitriptyline HCl (Elavil) 25 mg PO HS [facility] Last Admin: 01/14/18 21:37 Dose: 25 mg Gabapentin (Neurontin) 400 mg PO TID [facility] PRN Reason: Protocol Last Admin: 01/14/18 18:25 Dose: 400 mg Heparin Sodium (Porcine) (Heparin) 5,000 units SC Q8 [facility] PRN Reason: Protocol Last Admin: 01/15/18 05:06 Dose: 5,000 units Hydromorphone HCl (Dilaudid) 2 mg IVP Q4H PRN PRN Reason: Pain, severe (8-10) Last Admin: 01/15/18 05:06 Dose: 2 mg Cefazolin Sodium 2 gm/ Sodium (Chloride) 100 mls @ 200 mls/hr IVPB Q8 [facility] PRN Reason: Protocol Last Admin: 01/15/18 05:06 Dose: 200 mls/hr Fat Emulsion Intravenous (Intralipid 20%) 250 mls @ 21 mls/hr IV MWF@1800 [facility] Last Admin: 01/13/18 19:56 Dose: 21 mls/hr Multivitamins/Vitamin C 10 ml/Insulin Human Regular 5 units / Amino Acids/ Electrolytes/Dextrose 2,010.05 mls @ 83 mls/hr IV .Q24H [facility] Last Admin: 01/14/18 18:24 Dose: 83 mls/hr Lactic Acid (Lac-Hydrin 12% Lotion (225 G)) 0 gm EXT DAILY [facility] Last Admin: 01/14/18 09:53 Dose: 1 applic Metoprolol Tartrate (Lopressor) 12.5 mg PO BID [facility] Last Admin: 01/14/18 18:22 Dose: 12.5 mg Midodrine (Proamatine) 5 mg PO TID [facility] Last Admin: 01/14/18 18:25 Dose: 5 mg Octreotide Acetate (Sandostatin) 100 mcg SC DAILY [facility] Stop: 01/19/18 15:16 Last Admin: 01/14/18 09:54 Dose: 100 mcg Ondansetron HCl (Zofran Inj) 4 mg IVP Q4H PRN PRN Reason: Nausea/Vomiting Last Admin: 01/14/18 00:21 Dose: 4 mg Pantoprazole Sodium (Protonix Ec Tab) 40 mg PO ACB [facility] Last Admin: 01/14/18 09:24 Dose: 40 mg Sodium Bicarbonate (Sodium Bicarbonate Tab) 1,300 mg PO BID [facility] Last Admin: 01/14/18 18:26 Dose: 1,300 mg - Labs Labs: 01/15/18 07:00 01/15/18 07:00 PT 14.3 SECONDS (9.4-12.5) H 01/08/18 08:50 INR 1.24 (0.93-1.08) H 01/08/18 08:50 APTT 38.3 Seconds (25.1-36.5) H 01/08/18 08:50 - Constitutional Appears: Cachectic, Chronically Ill - Head Exam Head Exam: NORMAL INSPECTION - Neck Exam Neck Exam: absent: Meningismus - Respiratory Exam Respiratory Exam: Decreased Breath Sounds Additional comments: right anterior chest wall with port in place, with decreasing hematoma - Cardiovascular Exam Cardiovascular Exam: +S1, +S2 - GI/Abdominal Exam GI & Abdominal Exam: Soft. absent: Tenderness Additional comments: PEG tube in place Assessment and Plan - Assessment and Plan (Free Text) Plan: Assessment severe sepsis with acute on chronic renal failure due to Klebsiella bacteremia R /O PICC line-related infection S/P removal, S/P replacement of nephrostomy tube , S/P placement of new right internal jugular vein central venous catheter/ right chest wall port history of sepsis S/P right sided pyelonephritis with associated cystitis, with persistent coagulase negative staph bacteremia probably port/ central line as the source S/P removal pneumobilia and elevated bilirubin, consider S/P cholecystectomy R/O choledocholethiasis 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
[2018-01-16] MEDS: HYDROmorphone 2 mg/ml ISec IVP PRN ×5 (02:03→21:59)
[2018-01-16] MEDS: ceFAZolin 2 GM in Sodium Chloride 0.9% 100 ML IVPB SCH ×3 (05:52→21:59)
[2018-01-16 06:41] LABS: BASO # 0.03 K/mm3 (0.0-2.0); BASO % 0.2 % (0.0-3.0); EOS # 0.4 (0.0-0.7); EOS % 1.8 % (1.5-5.0); GRAN # 16.51 (1.4-6.5); GRAN % 84.8 % (50.0-68.0); HEMOGLOBIN 10.8 g/dL (14.0-18.0); LYMPH # 1.7 (1.2-3.4); LYMPH % 8.7 % (22.0-35.0); MEAN CORPUSCULAR HEMOGLOBIN 28.9 pg (25.0-35.0); MEAN CORPUSCULAR HGB CONC 34.4 g/dl (31.0-37.0); MONO # 0.9 (0.1-0.6); MONO % 4.5 % (1.0-6.0); RBC 3.74 10^6/uL (3.5-6.1); RED CELL DISTRIBUTION WIDTH 16.4 % (11.5-14.5); WHITE BLOOD COUNT 19.5 10^3/ul (4.5-11.0)
[2018-01-16 07:04] LABS: ALB/GLOB RATIO 0.7 (1.1-1.8); ALBUMIN 2.5 g/dL (3.0-4.8); ALT/SGPT 28 U/L (7-56); AST/SGOT 87 U/L (17-59); BILIRUBIN,DIRECT 7.2 mg/dL (0.0-0.4); BLOOD UREA NITROGEN 33 mg/dL (7-21); CALCIUM 9.9 mg/dL (8.4-10.5); GFR AFRICAN-AMERICAN > 60; GFR NON-AFRICAN AMERICAN > 60
[2018-01-16] MEDS: Pantoprazole 40 mg EC Tab PO SCH (08:28)
--- NOTE | 2018-01-16 08:55 | PN ---
DATE: 01/15/2018 SUBJECTIVE: The patient is seen lying in the bed in room 575, bed 1 with the patient's at bedside. The patient is comfortable. The patient does not appear to be in any distress. Overnight nurse's notes were reviewed. The patient required intermittent Dilaudid for pain control. The patient was found to be alert, awake, oriented x3. PHYSICAL EXAMINATION: VITAL SIGNS: T-max 99.3; heart rate 97, 100, 109; blood pressure 109/68, 116/69, 123/77; respiration 18; O2 sat 98-99%. HEENT: Head examination normocephalic, atraumatic. HEENT examination shows pale conjunctivae, icteric sclerae. No oropharyngeal lesion. No neck rigidity. CHEST: Kyphosis. Positive right upper chest Port-A-Cath. No rales, crackles, or wheezing. Decreased breath sound at the base, left more than the right. CARDIOVASCULAR: S1, S2, regular rhythm. Questionable soft systolic murmur in the left sternal border, right second intercostal space, left second intercostal space. Positive gastrostomy. Positive colostomy. Positive right percutaneous nephrostomy noted. GENITALIA: Male. RECTAL: Deferred. EXTREMITY: Shows no pitting edema, no calf tenderness, no Homans' sign. NEUROLOGIC: The patient is alert, awake, oriented x3. Cranial nerves II through XII grossly intact. Gait examination not tested. VASCULAR: Palpable pulses. The patient is seen lying in the bed. MUSCULOSKELETAL: The patient's musculoskeletal examination shows a body mass index of 21. DIAGNOSTICS: On 01/13/2018, WBC 18.3, hemoglobin and hematocrit 8.5 and 24.7, platelet 224, granulocytes 82. Sodium 141, potassium 3.8, chloride 111, CO2 20, anion gap 14, BUN 35, creatinine 1.1, GFR greater than 60, glucose 162, calcium 9.7, magnesium 2.2, total bili 7.4, direct bili 6.4, AST 108, alk phos 827, albumin 2.3. Urine cultures and repeat blood cultures all negative. The patient has been transfused. The patient was last transfused on 01/12/2018. The patient was seen by Infectious Disease, Nephrology, and Podiatry, their recommendations noted. IMPRESSION: 1. Severe sepsis with acute renal failure and acute prerenal failure. 2. Klebsiella pneumoniae bacteremia and sepsis. 3. Funguria. 4. Status post right upper chest Port-A-Cath removal with replacement of the new right upper chest Port-A-Cath. 5. Status post left upper extremity peripherally inserted central catheter line removal. 6. History of recurrent bacteremia. 7. Status post gastrostomy placement. 8. Status post colostomy and ileostomy 9. Status post colectomy and ileostomy. 10. Status post gastrostomy placement. 11. Right percutaneous nephrostomy. 12. Leukocytosis with granulocytosis and bandemia. 13. Anemia with decreasing hemoglobin and hematocrit. 14. Granulocytosis. 15. Increased anion gap metabolic acidosis and lactic acidosis. 16. Hypokalemia. 17. Resolving acute renal failure. 18. Hyperglycemia. 19. Hyperbilirubinemia. 20. Hypoalbuminemia. 21. Proteinuria. 22. Glycosuria. 23. Microscopic hematuria. 24. Pyuria, bacteriuria. 25. Klebsiella pneumoniae urinary tract infection. 26. Status post 2 units of packed red blood cells transfusion. 27. High and increased anion gap metabolic acidosis. 29. Bilateral painful onychomycosis, status post excisional debridement of bilateral nail plates. 30. Deconditioning. 21. Gait dysfunction. 22. Transaminitis. 23. O+ blood type. 24. Poor functional status. 25. Cachexia of malignancy. 26. Chronic narcotic-dependent pain syndrome of malignancy. 27. Questionable septic shock with hypotension, tachycardia, and multiple organ dysfunction syndrome. PLAN: At this time, the patient has been ordered type and crossmatch and transfusion of 2 units of PRBC. Repeat CBC, CMP, LFT, magnesium ordered. CURRENT CONSULTATIONS: 1. Cardiology. 2. Palliative Care. 3. Urology. 4. Infectious Disease. 6. Gastroenterology. 7. Interventional Radiology. 8. Podiatry. The patient's case is referred for TCU evaluation. Current medications; Ancef 2 g IV q. 8, , Dilaudid 2 mg IV q.4 p.r.n, Elavil 25 mg at bedtime, heparin 5000 subcu q.8, Intralipid 20%, , Lac-Hydrin lotion to both feet daily, Lopressor 12.5 mg twice a day, Neurontin 400 mg three times a day, potassium chloride 20 mEq ordered twice a day for 5 days, ProAmatine 5 mg 3 times a day. The patient has been ordered Protonix 40 mg daily; Sandostatin (octreotide) 100 mcg subcu daily, sodium bicarb increased to 1300 mg twice a day, Tylenol 650 mg p.r.n., Zofran 4 mg IV q. 4 hours p.r.n., oxygen 2 L, continuous liquid diet, out of bed. Physical therapy and occupational therapy will be ordered. The patient's ProAmatine will be increased from 5 mg three times a day to 10 mg three times a day for stabilization of blood pressure. The patient is still running to be hypotensive. The patient's ProAmatine is increased. The patient is on Lopressor 12.5 twice a day, Neurontin 400 mg three times a day, potassium chloride 20 mEq twice a day for 5 days. Midodrine increased to 10 mg three times a day, Protonix 40 mg daily, Sandostatin 100 mcg subcu daily, sodium bicarb 1300 mg twice a day. The patient has been ordered PRBC transfusion x2 today. The patient's PRBC transfusion and type and crossmatch was ordered at 07:50. Until 02:30, the patient has not been typed and crossmatch, has not started receiving the blood transfusion, which was informed to the charge nurse of the fifth floor. Dictated and electronically signed, not read. Sergio Wagner MD [facility]
[2018-01-16] MEDS: Potassium Chloride 20 mEq/15 ml LIQ UD PO SCH ×2 (10:33→18:35)
[2018-01-16] MEDS ORDERED: Barium Sulfate Susp 2.1% w/v, 2.0% w/w 450 mL Bottle PO ONE (10:55)
[2018-01-16] MEDS: Ammonium Lactate 12% Lotion (225 g) EXT SCH (11:01)
[2018-01-16] MEDS ORDERED: Sodium Chloride 0.9% 1,000 ML IV SCH (11:15)
--- NOTE | 2018-01-16 12:28 | CP.PCM.PN ---
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 Maintain hemodynamics stable. avoid hypotension. Patient not on ACEI/ARB due to PRANAV and low BP Monitor Input/Output, daily weights and renal function with basic metabolic panel supplements electrolytes as needed pt now on TPN. ID, GI and urology involved Increased sodium bicarb 1300 mg bid Anemia management as per heme/onc or primary team consider octreotide to reduce GI fluid loss, d/w team and agreed. supplement lytes as needed, ordered for KCL check coags today, consider heme f/up for bleeding tendency Dose meds/antibiotics for improved GFR. Glycemic control Further work up/management as per primary team Thanks for allowing me to participate in care of your patient. Will follow with you. Please call if any Qs. 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 overall symptoms worsening. renal consult for PRANAV. pt with lactic acidosis and hyperbilir as well. Denies OTC/herbal meds or NSAIDs No recent iodinated contrast exposure. Noted episode of low BP (96/52). ROS: feels better Cardiovascular: No chest pain. Pulmonary: No shortness of breath Gastrointestinal: c/o abdominal pain denies nausea. No vomiting. ostomy with bloody output Genitourinary: No pain while urinating. s/p nephrostomy tube change 01/10/18 All other negative except as in HPI Physical Examination: General Appearance: comfortable, in no acute respiratory distress, co-operative . ill appearing Vitals reviewed and noted as below Head; Atraumatic, normocephalic ENT: no ulcers no thrush. Tongue is midline/coated. Oropharynx: no rash or ulcers. EYES: Pupils are equal, round and reactive to light accommodation. Eye muscles and extraocular movement intact. Sclera is icteric. Neck; supple no lymphadenopathy, no thyromegaly or bruit. has echymose around portacath and Rt chest Lungs: Normal respiratory rate/effort. Breath sounds bilateral equal and clear Heart: Increased rate. s1s2 normal. No rub or gallop. Extremities: ankle edema. No varicose veins Neurological: Patient is awake alert follows command Skin: Warm and dry. Normal turgor. No rash. Palpitation: Normal elasticity for age Abdomen: Abdomen is soft. Bowel sounds +. There is no abdominal tenderness, no guarding/rigidity no organomegaly. has iletostomy and G tube Psych: normal insight and normal affect/mood MSK: no joint tenderness or swelling. Digits and nails normal, no deformity : kidney or bladder not palpable. has Rt nephrostomy tube draining hemorrhagicr urine Labs/imaging reviewed. Past medical history, past surgical history, family history, social history, allergy reviewed and noted as below Family hx: no hx of CKD. Rest non-contributory renal imaging WNL Objective - Vital Signs/Intake and Output Vital Signs (last 24 hours): Temp Pulse Resp BP Pulse Ox 98.7 F 102 H 20 128/85 98 01/16/18 08:26 01/16/18 10:32 01/16/18 08:26 01/16/18 10:32 01/16/18 08:26 Intake and Output: 01/16/18 01/16/18 06:59 18:59 Intake Total 1923 Output Total 800 Balance 1123 - Medications Medications: Current Medications Acetaminophen (Tylenol 325mg Tab) 650 mg PO Q6H PRN PRN Reason: FEVER>=99.5F Last Admin: 01/15/18 00:58 Dose: 650 mg Acetaminophen (Tylenol 650 Mg Supp) 650 mg RC Q6H PRN PRN Reason: TEMP>=99.5F Amitriptyline HCl (Elavil) 25 mg PO HS [facility] Last Admin: 01/15/18 21:42 Dose: 25 mg Gabapentin (Neurontin) 400 mg PO TID [facility] PRN Reason: Protocol Last Admin: 01/16/18 10:33 Dose: 400 mg Heparin Sodium (Porcine) (Heparin) 5,000 units SC Q8 [facility] PRN Reason: Protocol Last Admin: 01/16/18 05:53 Dose: 5,000 units Hydromorphone HCl (Dilaudid) 2 mg IVP Q4H PRN PRN Reason: Pain, severe (8-10) Last Admin: 01/16/18 10:30 Dose: 2 mg Cefazolin Sodium 2 gm/ Sodium (Chloride) 100 mls @ 200 mls/hr IVPB Q8 [facility] PRN Reason: Protocol Last Admin: 01/16/18 05:52 Dose: 200 mls/hr Fat Emulsion Intravenous (Intralipid 20%) 250 mls @ 21 mls/hr IV MWF@1800 [facility] Last Admin: 01/13/18 19:56 Dose: 21 mls/hr Multivitamins/Vitamin C 10 ml/Insulin Human Regular 5 units / Amino Acids/ Electrolytes/Dextrose 2,010.05 mls @ 83 mls/hr IV .Q24H [facility] Last Admin: 01/16/18 01:35 Dose: 83 mls/hr Sodium Chloride (Sodium Chloride 0.9%) 1,000 mls @ 80 mls/hr IV .[id number] [facility] Last Admin: 01/16/18 11:28 Dose: 80 mls/hr Lactic Acid (Lac-Hydrin 12% Lotion (225 G)) 0 gm EXT DAILY [facility] Last Admin: 01/16/18 11:01 Dose: 1 applic Metoprolol Tartrate (Lopressor) 12.5 mg PO BID [facility] Last Admin: 01/16/18 10:32 Dose: 12.5 mg Midodrine (Proamatine) 10 mg PO TID [facility] Last Admin: 01/16/18 10:35 Dose: 10 mg Octreotide Acetate (Sandostatin) 100 mcg SC DAILY [facility] Stop: 01/19/18 15:16 Last Admin: 01/16/18 10:47 Dose: 100 mcg Ondansetron HCl (Zofran Inj) 4 mg IVP Q4H PRN PRN Reason: Nausea/Vomiting Last Admin: 01/16/18 10:31 Dose: 4 mg Pantoprazole Sodium (Protonix Ec Tab) 40 mg PO ACB [facility] Last Admin: 01/16/18 08:28 Dose: 40 mg Potassium Chloride (Potassium Chloride Oral Soln) 20 meq PO BID [facility] Stop: 01/20/18 10:01 Last Admin: 01/16/18 10:33 Dose: 20 meq Sodium Bicarbonate (Sodium Bicarbonate Tab) 1,300 mg PO BID [facility] Last Admin: 01/16/18 10:35 Dose: 1,300 mg - Labs Labs: 01/16/18 06:30 01/16/18 06:30 PT 14.3 SECONDS (9.4-12.5) H 01/08/18 08:50 INR 1.24 (0.93-1.08) H 01/08/18 08:50 APTT 38.3 Seconds (25.1-36.5) H 01/08/18 08:50
[2018-01-16] MEDS ORDERED: Iohexol 350 MG/100 ML VIAL ONE (12:57)
--- NOTE | 2018-01-16 13:30 | CP.PCM.CON ---
History of Present Illness - History of Present Illness History of Present Illness: PGY-1 Surgery Consult Note for Dr. 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 He was also diagnosed with Klebsiella septicemia. Patient had a PICC line in the right arm that was placed a month ago (for TPN) on admission that has since been removed. Patient has had bleeding from the illeostomy site that began about 2 and a half days ago. Patient notes intermittent oozing of dark red blood into his illeostomy bag. He also has chronic abdominal pain from his cancer. Of note, the patient states that he takes Alieve at home for chronic pain. PMHx: Carcinoid tumor, CKD, HTN PSHx: G-tube in 2011, Right sided Nephrostomy in 2013, Colectomy with illeostomy in 2014. Surgeries performed at [facility] by Dr. Juaquin Rose Allergies: Morphine Social: Denies tobacco, alcohol, drugs Review of Systems - Constitutional Constitutional: absent: Chills, Fever - EENT Eyes: absent: Change in Vision Ears: absent: Decreased Hearing Nose/Mouth/Throat: absent: Nasal Congestion - Cardiovascular Cardiovascular: absent: Chest Pain - Respiratory Respiratory: absent: Dyspnea - Gastrointestinal Gastrointestinal: Abdominal Pain (chronic), Other (dark red blood in illeostomy bag). absent: Change in Bowel Habits, Nausea, Vomiting - Genitourinary Genitourinary: absent: Flank Pain - Musculoskeletal Musculoskeletal: absent: Back Pain - Integumentary Integumentary: absent: Rash - Neurological Neurological: absent: Dizziness - Psychiatric Psychiatric: absent: Anxiety - Endocrine Endocrine: absent: Palpitations Past Patient History - Infectious Disease Hx of Infectious Diseases: None - Tetanus Immunizations Tetanus Immunization: Unknown - Past Social History Smoking Status: Never Smoked - CARDIAC Hx Cardiac Disorders: No - PULMONARY Hx Respiratory Disorders: No - NEUROLOGICAL Hx Neurological Disorder: No - HEENT Hx HEENT Problems: No - RENAL Hx Chronic Kidney Disease: Yes Other/Comment: HAS UROSTOMY - ENDOCRINE/METABOLIC Hx Endocrine Disorders: No - HEMATOLOGICAL/ONCOLOGICAL Hx Cancer: Yes (Gastric; colon) - INTEGUMENTARY Hx Dermatological Problems: No - MUSCULOSKELETAL/RHEUMATOLOGICAL Hx Falls: Yes - GASTROINTESTINAL Hx Gastrointestinal Disorders: Yes Hx Ileostomy: Yes Other/Comment: L colostomy. G tube - GENITOURINARY/GYNECOLOGICAL Hx Genitourinary Disorders: Yes Other/Comment: HAS UROSTOMY - PSYCHIATRIC Hx Psychophysiologic Disorder: No - SURGICAL HISTORY Hx Surgeries: Yes Other/Comment: COLOSTOMY, PEG TUBE, UROSTOMY - ANESTHESIA Hx Anesthesia Reactions: No Hx Malignant Hyperthermia: No Meds Allergies/Adverse Reactions: Allergies Allergy/AdvReac Type Severity Reaction Status Date / Time morphine Allergy ANAPHYLAXIS Verified 12/08/17 19:18 - Medications Medications: Current Medications Acetaminophen (Tylenol 325mg Tab) 650 mg PO Q6H PRN PRN Reason: FEVER>=99.5F Last Admin: 01/15/18 00:58 Dose: 650 mg Acetaminophen (Tylenol 650 Mg Supp) 650 mg RC Q6H PRN PRN Reason: TEMP>=99.5F Amitriptyline HCl (Elavil) 25 mg PO HS [facility] Last Admin: 01/15/18 21:42 Dose: 25 mg Gabapentin (Neurontin) 400 mg PO TID [facility] PRN Reason: Protocol Last Admin: 01/16/18 10:33 Dose: 400 mg Hydromorphone HCl (Dilaudid) 2 mg IVP Q4H PRN PRN Reason: Pain, severe (8-10) Last Admin: 01/16/18 10:30 Dose: 2 mg Cefazolin Sodium 2 gm/ Sodium (Chloride) 100 mls @ 200 mls/hr IVPB Q8 [facility] PRN Reason: Protocol Last Admin: 01/16/18 05:52 Dose: 200 mls/hr Fat Emulsion Intravenous (Intralipid 20%) 250 mls @ 21 mls/hr IV MWF@1800 [facility] Last Admin: 01/13/18 19:56 Dose: 21 mls/hr Multivitamins/Vitamin C 10 ml/Insulin Human Regular 5 units / Amino Acids/ Electrolytes/Dextrose 2,010.05 mls @ 83 mls/hr IV .Q24H [facility] Last Admin: 01/16/18 01:35 Dose: 83 mls/hr Sodium Chloride (Sodium Chloride 0.9%) 1,000 mls @ 80 mls/hr IV .[id number] [facility] Last Admin: 01/16/18 11:28 Dose: 80 mls/hr Lactic Acid (Lac-Hydrin 12% Lotion (225 G)) 0 gm EXT DAILY [facility] Last Admin: 01/16/18 11:01 Dose: 1 applic Metoprolol Tartrate (Lopressor) 12.5 mg PO BID [facility] Last Admin: 01/16/18 10:32 Dose: 12.5 mg Midodrine (Proamatine) 10 mg PO TID [facility] Last Admin: 01/16/18 10:35 Dose: 10 mg Octreotide Acetate (Sandostatin) 100 mcg SC DAILY [facility] Stop: 01/19/18 15:16 Last Admin: 01/16/18 10:47 Dose: 100 mcg Ondansetron HCl (Zofran Inj) 4 mg IVP Q4H PRN PRN Reason: Nausea/Vomiting Last Admin: 01/16/18 10:31 Dose: 4 mg Pantoprazole Sodium (Protonix Ec Tab) 40 mg PO ACB [facility] Last Admin: 01/16/18 08:28 Dose: 40 mg Potassium Chloride (Potassium Chloride Oral Soln) 20 meq PO BID [facility] Stop: 01/20/18 10:01 Last Admin: 01/16/18 10:33 Dose: 20 meq Sodium Bicarbonate (Sodium Bicarbonate Tab) 1,300 mg PO BID [facility] Last Admin: 01/16/18 10:35 Dose: 1,300 mg Physical Exam - Constitutional Appears: No Acute Distress - Head Exam Head Exam: ATRAUMATIC, NORMOCEPHALIC - Eye Exam Eye Exam: EOMI, Scleral icterus - ENT Exam ENT Exam: Mucous Membranes Moist - Respiratory Exam Respiratory Exam: NORMAL BREATHING PATTERN. absent: Accessory Muscle Use, Respiratory Distress - Cardiovascular Exam Cardiovascular Exam: +S1, +S2 Additional comments: Right chest wall portacath - GI/Abdominal Exam GI & Abdominal Exam: Rigid. absent: Distended, Tenderness Additional comments: G-tube in place Right sided illeostomy with dark red blood in the bag. Unclear whether the blood could be coming from the site of the skin junction with the stoma. - Extremities Exam Extremities exam: Negative for: pedal edema - Back Exam Additional comments: Right sided nephrostomy tube in place - Neurological Exam Neurological exam: Alert, Oriented x3 - Psychiatric Exam Psychiatric exam: Normal Affect, Normal Mood - Skin Skin Exam: Dry, Warm Results - Vital Signs Recent Vital Signs: Last Vital Signs Temp 98.7 F 01/16/18 08:26 Pulse 102 H 01/16/18 10:32 Resp 20 01/16/18 08:26 BP 128/85 01/16/18 10:32 Pulse Ox 98 01/16/18 08:26 - Labs Result Diagrams: 01/16/18 06:30 01/16/18 06:30 Labs: Laboratory Results - last 24 hr 01/11/18 01/15/18 01/16/18 11:43 07:50 06:30 WBC RBC Hgb Hct MCV MCH MCHC RDW Plt Count MPV Gran % Lymph % (Auto) Hutchinson % (Auto) Eos % (Auto) Baso % (Auto) Gran # Lymph # (Auto) Hutchinson # (Auto) Eos # (Auto) Baso # (Auto) Sodium 143 Potassium 3.9 Chloride 113 H Carbon Dioxide 22 Anion Gap 12 BUN 33 H Creatinine 1.1 Est GFR ( Amer) > 60 Est GFR (Non-Af Amer) > 60 POC Glucose (mg/dL) Random Glucose 179 H Calcium 9.9 Magnesium 2.1 Total Bilirubin 8.3 H Direct Bilirubin 7.2 H AST 87 H ALT 28 Alkaline Phosphatase 929 H Total Protein 6.3 Albumin 2.5 L Globulin 3.7 Albumin/Globulin Ratio 0.7 L Blood Type O POSITIVE Antibody Screen Negative Crossmatch See Detail See Detail BBK History Checked Patient has bt 01/16/18 01/16/18 01/16/18 06:30 06:45 11:08 WBC 19.5 H RBC 3.74 Hgb 10.8 L D Hct 31.4 L MCV 84.0 MCH 28.9 MCHC 34.4 RDW 16.4 H Plt Count 222 MPV 12.0 H Gran % 84.8 H Lymph % (Auto) 8.7 L Hutchinson % (Auto) 4.5 Eos % (Auto) 1.8 Baso % (Auto) 0.2 Gran # 16.51 H Lymph # (Auto) 1.7 Hutchinson # (Auto) 0.9 H Eos # (Auto) 0.4 Baso # (Auto) 0.03 Sodium Potassium Chloride Carbon Dioxide Anion Gap BUN Creatinine Est GFR ( Amer) Est GFR (Non-Af Amer) POC Glucose (mg/dL) 177 H 162 H Random Glucose Calcium Magnesium Total Bilirubin Direct Bilirubin AST ALT Alkaline Phosphatase Total Protein Albumin Globulin Albumin/Globulin Ratio Blood Type Antibody Screen Crossmatch BBK History Checked Assessment & Plan - Assessment and Plan (Free Text) Assessment: This is a 62 year old male with PMHx carcinoid tumor of the GI tract s/p colostectomy with illeostomy with dark red blood coming out of the ostomy. Plan: Illeostomy Bleeding f/u CT scan with PO contrast Needs GI re-evaluation. Recommend patient to get endoscopy through the illeostomy for evaluation. Continue to monitor H/H Transfuse as needed Poor surgical candidate due to advanced disease process. No surgical intervention at this time. Will continue to follow and await imaging and GI recs Discussed with Dr. Khai Messina PGY-1
--- NOTE | 2018-01-16 13:45 | CP.PCM.PN ---
Subjective - Date & Time of Evaluation Date of Evaluation: 01/16/18 Time of Evaluation: 11:00 - Subjective Subjective: Still having pain in the abdomen, less pain in the right neck area, no fevers, no nausea or vomiting. Has blood from his ileostomy/colostomy. Objective - Vital Signs/Intake and Output Vital Signs (last 24 hours): Temp Pulse Resp BP Pulse Ox 98.7 F 102 H 20 128/85 98 01/16/18 08:26 01/16/18 08:26 01/16/18 08:26 01/16/18 08:26 01/16/18 08:26 Intake and Output: 01/16/18 01/16/18 06:59 18:59 Intake Total 1923 Output Total 800 Balance 1123 - Medications Medications: Current Medications Acetaminophen (Tylenol 325mg Tab) 650 mg PO Q6H PRN PRN Reason: FEVER>=99.5F Last Admin: 01/15/18 00:58 Dose: 650 mg Acetaminophen (Tylenol 650 Mg Supp) 650 mg RC Q6H PRN PRN Reason: TEMP>=99.5F Amitriptyline HCl (Elavil) 25 mg PO HS [facility] Last Admin: 01/15/18 21:42 Dose: 25 mg Gabapentin (Neurontin) 400 mg PO TID [facility] PRN Reason: Protocol Last Admin: 01/15/18 18:03 Dose: 400 mg Heparin Sodium (Porcine) (Heparin) 5,000 units SC Q8 [facility] PRN Reason: Protocol Last Admin: 01/16/18 05:53 Dose: 5,000 units Hydromorphone HCl (Dilaudid) 2 mg IVP Q4H PRN PRN Reason: Pain, severe (8-10) Last Admin: 01/16/18 05:52 Dose: 2 mg Cefazolin Sodium 2 gm/ Sodium (Chloride) 100 mls @ 200 mls/hr IVPB Q8 [facility] PRN Reason: Protocol Last Admin: 01/16/18 05:52 Dose: 200 mls/hr Fat Emulsion Intravenous (Intralipid 20%) 250 mls @ 21 mls/hr IV MWF@1800 [facility] Last Admin: 01/13/18 19:56 Dose: 21 mls/hr Multivitamins/Vitamin C 10 ml/Insulin Human Regular 5 units / Amino Acids/ Electrolytes/Dextrose 2,010.05 mls @ 83 mls/hr IV .Q24H [facility] Last Admin: 01/16/18 01:35 Dose: 83 mls/hr Lactic Acid (Lac-Hydrin 12% Lotion (225 G)) 0 gm EXT DAILY [facility] Last Admin: 01/15/18 10:23 Dose: 1 applic Metoprolol Tartrate (Lopressor) 12.5 mg PO BID [facility] Last Admin: 01/15/18 18:01 Dose: 12.5 mg Midodrine (Proamatine) 10 mg PO TID [facility] Last Admin: 01/15/18 18:53 Dose: Not Given Octreotide Acetate (Sandostatin) 100 mcg SC DAILY [facility] Stop: 01/19/18 15:16 Last Admin: 01/15/18 10:36 Dose: 100 mcg Ondansetron HCl (Zofran Inj) 4 mg IVP Q4H PRN PRN Reason: Nausea/Vomiting Last Admin: 01/15/18 08:38 Dose: 4 mg Pantoprazole Sodium (Protonix Ec Tab) 40 mg PO ACB [facility] Last Admin: 01/16/18 08:28 Dose: 40 mg Potassium Chloride (Potassium Chloride Oral Soln) 20 meq PO BID [facility] Stop: 01/20/18 10:01 Last Admin: 01/15/18 18:53 Dose: Not Given Sodium Bicarbonate (Sodium Bicarbonate Tab) 1,300 mg PO BID [facility] Last Admin: 01/15/18 18:04 Dose: 1,300 mg - Labs Labs: 01/16/18 06:30 01/16/18 06:30 PT 14.3 SECONDS (9.4-12.5) H 01/08/18 08:50 INR 1.24 (0.93-1.08) H 01/08/18 08:50 APTT 38.3 Seconds (25.1-36.5) H 01/08/18 08:50 - Constitutional Appears: Cachectic, Chronically Ill - Head Exam Head Exam: NORMAL INSPECTION - Neck Exam Neck Exam: absent: Meningismus - Respiratory Exam Respiratory Exam: Decreased Breath Sounds Additional comments: right sided port in place, with decreasing surrounding hematoma - Cardiovascular Exam Cardiovascular Exam: +S1, +S2 - GI/Abdominal Exam GI & Abdominal Exam: Soft. absent: Tenderness Additional comments: ileostomy tube and gastric tube in place; nephrostomy tube in place Assessment and Plan - Assessment and Plan (Free Text) Plan: Assessment severe sepsis with acute on chronic renal failure due to Klebsiella bacteremia R /O PICC line-related infection S/P removal, S/P replacement of nephrostomy tube , S/P placement of new right internal jugular vein central venous catheter/ right chest wall port history of sepsis S/P right sided pyelonephritis with associated cystitis, with persistent coagulase negative staph bacteremia probably port/ central line as the source S/P removal pneumobilia and elevated bilirubin, consider S/P cholecystectomy R/O choledocholethiasis carcinoma of GI tract S/P colectomy and ileostomy S/P nephrostomy tube placement on the right 2 years ago history of G-tube placement chronic renal failure Plan since the Klebsiella is sensitive, continue Cefazolin day 7 and will recommend at least 2 weeks of antibiotics from time of PICC removal (day 7 today) repeat blood cx are negative overall prognosis is poor
[2018-01-16 14:58] LABS: PROTHROMBIN TIME 15.8 SECONDS (9.4-12.5)
[2018-01-16 14:59] LABS: INR 1.38 (0.93-1.08); PARTIAL THROMBOPLASTIN TIME 40.6 Seconds (25.1-36.5)
--- NOTE | 2018-01-16 15:17 | PN ---
DATE: 01/16/2018 SUBJECTIVE: The patient is in room #571, bed #1. Overnight nurses' notes were reviewed. The patient received blood transfusion x2 yesterday and overnight. The patient appears to be comfortable, in no distress. The patient requires intermittent IV parenteral analgesics and required IV Zofran. No other adverse events were documented. Bleeding from ileostomy site noted REVIEW OF SYSTEMS: The patient's 13-system review was positive for receiving IV analgesics. PHYSICAL EXAMINATION VITAL SIGNS: T-max 98.5, heart rate 101, blood pressure 118/78, respiration 18, O2 saturation 98% to 100%. HEAD: Normocephalic, atraumatic. EENT: Shows pinkish pale conjunctivae, icteric sclerae. No oropharyngeal lesion. NECK: No neck rigidity. CHEST: Positive kyphosis. Positive right upper chest Port-A-Cath noted. Questionable decreased breath sounds at the bases, left more than the right. No rales, crackles, or wheezing. CARDIOVASCULAR: Shows S1, S2, regular rhythm. Questionable soft systolic murmur at left sternal border, right second intercostal space, left second intercostal space. ABDOMEN: Soft. Positive colostomy and ileostomy. Positive gastrostomy.Positive bleeding and bright red blood noted from ileostomy site. GENITALIA: Male. RECTAL: Deferred. EXTREMITIES: Show no pitting edema, no calf tenderness, no Homans sign. NEUROLOGIC: The patient is alert, awake, oriented, responsive. Moves upper and lower extremity without assistance. Gait examination is not tested. VASCULAR: Palpable pulses. LABORATORY DATA: Diagnostics from 01/16/2018, WBC 19.5, hemoglobin/hematocrit 10.8/31.4, platelet 222, sodium 143, potassium 3.9, chloride 113, CO2 22, BUN 33, creatinine 1.1, glucose 179. The patient is presently on IV TPN and IV antibiotics. IMPRESSION: 1. Ileostomy site bright red bleeding 1. Klebsiella pneumoniae, sepsis, and bacteremia. 2. Funguria. 3. Septic shock with hypotension, tachycardia, and multiple organ dysfunction syndrome (resolving). 4. Severe sepsis. 5. Advanced gastrointestinal carcinoid tumor. 6. Cachexia of malignancy. 7. Ocex-ri-oxfwvteh malnutrition and osnv-pc-[id number] hypoalbuminemia. 8. Chronic bowel obstruction. 9. Chronic hyperalimentation dependent malnutrition. 10. Chronic hyperalimentation dependent feeding dysfunction. 11. Tachycardia. 12. Hypotension. 13. Persistent refractory leukocytosis. 14. Normocytic anemia. 15. Status post 4 units of packed red blood cells transfusion. 16. Status post acute renal failure, acute kidney injury secondary to hypotension and hypoperfusion. 17. Status post right upper chest Port-A-Cath removal and placement of the new right upper chest Port-A-Cath. 18. Status post left upper extremity PICC line removal. 19. Right percutaneous nephrostomy tube placement. 20. History of colostomy, ileostomy, and gastrostomy tube placement. 21. History of colectomy. 22. Gait dysfunction. 23. Deconditioning. 24. Hyperbilirubinemia. 25. Severe transaminitis. 26. Questionable shock liver with possible gastrointestinal carcinoid metastasis with transaminitis and hyperbilirubinemia. 27. Chronic narcotic-dependent pain syndrome of malignancy. PLAN: At this time, the patient is to be continued on IV antibiotics as per Infectious Disease recommendation for at least 2 weeks. The patient has completed 6 to 7 days of IV Ancef. The patient is to be continued on midodrine 10 mg 3 times a day. The patient is to be continued on IV analgesics. The patient is to be continued on Zofran 4 mg IV every 4 hours. The patient is to be continued on GI prophylaxis. The patient will be continued on IV TPN which the patient is also getting at home. The patient's lab data will be monitored closely. The patient has been re-ordered, re-encouraged to be out of bed to chair. The patient has been re-ordered, re-advised, re-encouraged to ambulate with physical therapy. The patient was re-advised, re-encouraged to cooperate with physical therapy, occupational therapy, ambulation therapy treatment, and gait training. The patient and the patient's were advised yesterday to contact palliative care nurse regarding their living will advance directive and to discuss code status. Cat scan abdomen and pelvis ordered Surgical consult ordered Heparin or Lovenox to be discontinued. Overall prognosis is guarded to poor which has also been mentioned by the [employer] consultant involved the care of the patient to the patient and the family. Dictated and electronically signed, not read. Sergio Wagner MD [facility] # [id number] MARITZA
[2018-01-16] MEDS: Fat Emulsion 20% IV 250 ML IV SCH (18:30)
--- NOTE | 2018-01-16 18:46 | CT ---
PROCEDURE: CT scan of the abdomen and pelvis dated 01/16/2018. HISTORY: Bleeding from the ostomy/ carcinoid tumor/mets COMPARISON: Comparison made with prior CT scan abdomen pelvis spell the the [facility] 01/08/2018 TECHNIQUE: Contiguous helical/transaxial images of the abdomen and pelvis performed following intravenous injection of approximately 100 cc Omnipaque 350 contrast material. Additional 2D sagittal and coronal reformats generated. Radiation dose: Total exam DLP = 480.41 mGy-cm. This CT exam was performed using one or more of the following dose reduction techniques: Automated exposure control, adjustment of the mA and/or kV according to patient size, and/or use of iterative reconstruction technique. FINDINGS: LOWER THORAX: Small bilateral effusions left larger than right. There is mild left basilar atelectasis. No evidence of basilar Heart size is within range of normal. No significant pericardial effusion. Fluid is seen within the distal esophagus likely due to reflux. LIVER: Liver exhibits normal size measuring approximately the 14.55 cm in CC dimension. No obvious hepatic masses or collections. Re- demonstrated is mild intrahepatic biliary ductal dilatation diminished in amount when compared with the prior study. GALLBLADDER AND BILE DUCTS: Gallbladder not visualized with any certainty and may be contracted or resected. Clinical correlation recommended. . PANCREAS: Visualized pancreas appears on atrophic and fatty replaced. No obvious pancreatic masses or collections. SPLEEN: Spleen is not visualized on this study. Clinical correlation with surgical history. ADRENALS: There are no adrenal lesions seen. KIDNEYS AND URETERS: Re- demonstrated is in situ right nephrostomy tube. No evidence of nephrolithiasis or hydronephrosis. BLADDER: Urinary bladder is incompletely distended which in part accounts for thick-walled appearance. Muscular hypertrophy presumably contributes. Possibility of a cystitis or other intrinsic/invasive wall lesion not excluded. REPRODUCTIVE: Unremarkable. APPENDIX: Unremarkable. BOWEL: Evaluation of the bowel is quite limited due to the lack of oral contrast material. In situ gastrostomy/PEG tube. The stomach is distended with a liquid some liquid debris and air. Apparent complete colectomy and appendectomy with ileostomy left lower quadrant of the abdomen. Rectosigmoid stump noted within the pelvis. There is a ill-defined presumed matted mass of small bowel within the mid abdomen that exhibits, amorphous appearance and thickened irving. Findings metastases within the mesentery and secondary adherence of multiple loops of small bowel. Repeat CT scan with oral contrast material may be of some benefit. PERITONEUM: Unremarkable. No fluid collection. No free air. LYMPH NODES: Multiple small nonspecific lymph nodes are present within the retroperitoneum. There also appear to be several small to medium-sized upper abdominal lymph nodes as well. VASCULATURE: Unremarkable. No aortic aneurysm. BONES: Minor degenerative spondylosis of the lower thoracic and lumbar spine. OTHER FINDINGS: There has been interval infiltration changes within the subcutaneous tissues consistent with anasarca. Small lipoma discrete lipoma within the subcutaneous tissues left buttock is less well seen on this study compared the prior exam due to aforementioned anasarca. IMPRESSION: Small bilateral effusions and bibasilar atelectasis left greater than right. There is small amount of fluid within the distal esophagus likely due to reflux. Small amount of pneumobilia diminished in amount from prior study. The gallbladder is not seen with certainty and may be contracted or surgically resected. Clinic correlation recommended. Spleen is not seen on this study. Correlation with history recommended to assess for presumed prior splenectomy. In situ right nephrostomy tube. Apparent colectomy and appendectomy with ileostomy left lower quadrant of the abdomen. There is a ill-defined a amorphous appearing heterogeneous density in the mid abdomen likely representing a mat of adherent small bowel. There appears to be new bowel wall thickening on. Rule out on metastasis in the adjacent mesenteries with secondary adherence of the small bowel loops. Markedly distended stomach with in situ PEG tube. Interval development of diffuse anasarca. Multiple of nonspecific retroperitoneal and upper abdominal lymph nodes.
--- NOTE | 2018-01-16 19:20 | PN ---
DATE: 01/16/2018 SUBJECTIVE: Patient has noted bright red blood per his ileostomy for the last 24 hours. He denies any change in his abdominal pain. He has had some vomiting today. He denies any fevers or chills. OBJECTIVE: VITAL SIGNS: Reveal temperature of 99, blood pressure of 140/88, heart rate of 121. HEENT: Reveal sclerae to be white. Conjunctivae are pale. NECK: Supple. CHEST: Reveal distant breath sounds. HEART: Reveals mild tachycardia. ABDOMEN: Soft. He has some bright red blood coming out of his left lower quadrant ileostomy. He has a PEG tube in his left upper quadrant. He has a nephrostomy tube in the right flank draining nonbloody urine. EXTREMITIES: Show no edema. LABORATORY DATA: Reveals hemoglobin of 10.8 this morning. He was transfused 2 units of packed red blood cells yesterday. Chemistries reveal, direct bilirubin 8.3, AST 87, ALT 28, alkaline phosphatase of 929. IMPRESSION: An unfortunate 62-year-old male with metastatic carcinoid tumor originating in the colon with a diverting ileostomy with bleeding, right nephrostomy for hydronephrosis, venting gastrostomy tube with rising bilirubin with chronic bowel obstruction, treated with venting gastrostomy. The rising bilirubin may be secondary to hyperalimentation as the patient is receiving both IV Minocin and fat. It may also be secondary to metastatic disease. The bleeding from the ileostomy may be related to a metastatic tumor involving the bowel. His prognosis is poor. He has not decided on palliative care. Patient wishes that "everything be done." RECOMMENDATIONS: I will schedule the patient for enteroscopy through the left lower quadrant ileostomy to see if I can determine a source of bleeding. His long-term prognosis is extremely poor. Ezequiel Olivo MD
[2018-01-17] MEDS: HYDROmorphone 2 mg/ml ISec IVP PRN ×5 (01:00→20:17)
--- NOTE | 2018-01-17 01:23 | CON ---
DATE: HISTORY OF PRESENT ILLNESS: Babatunde Cameron is seen on the floor at the request of Dr. Wagner. Discussed at length with the resident and agree with the note they generated with the plan. At the moment, the patient is admitted with vital signs that are normal with a pulse of 120, blood pressure about 140. Weight not recorded this week. He received 4 units of packed cells since admission. He has an NG tube and an ileostomy in place. LABORATORY DATA: Remarkable for white count that was elevated at 31 at one point on the , now it is down to 19.4. Platelet count 22,000. Coags: PT is 14, PTT is 38. Lactate is elevated on admission, 6.1. Chemistry is remarkable for an anion gap that is 12, normal. BUN 33, creatinine 1.1. He has a nephrostomy tube recently placed by Dr. Calhoun, it was somewhat hemorrhagic. Glucose 170. Bili 8.3, direct 7.2 obstructive. AST 87; ALT 28, normal; alk phos 920. Albumin 2.5. The CAT scan done without oral contrast and I personally read showing gas in the biliary tree, gastrostomy tube. Ileostomy is done without IV or oral contrast and it is consistent with metastatic disease, I believe in the pelvis and residual tumor in the pelvis. The patient is status post colectomy and ileostomy and I think right hemicolectomy, above which there is a staple line in the pelvis consistent with a subtotal colectomy. PHYSICAL EXAMINATION: GENERAL: The patient is lying in bed, severely jaundiced. CHEST: Unremarkable. HEART: Unremarkable. ABDOMEN: Remarkable for gastrostomy tube in good position. There is an ileostomy that is draining bilious drainage and it is bilious, but also hemorrhagic, it does not seems to be from the edges, seems to be from internally. Gastrostomy is without blood. The lower part of the abdomen is firm, somewhat tender and nodular without guarding or rebound. EXTREMITIES: No clubbing, cyanosis, or edema. Metastatic carcinoid tumor, I do not have the pathology report, nor the OR report [facility] The patient has received chemotherapy about a month ago. IMPRESSION: Lower gastrointestinal bleed, probably from the small bowel, possibly related to metastatic carcinoid tumor. I will follow up preferably without surgical intend reevaluate the small bowel, possibly to do a colonoscopy. We will discuss. Thank you for the consult. Hebert Ridley MD
[2018-01-17] MEDS: ceFAZolin 2 GM in Sodium Chloride 0.9% 100 ML IVPB SCH ×3 (05:40→21:37)
--- NOTE | 2018-01-17 06:50 | CP.PCM.PN ---
Subjective - Date & Time of Evaluation Date of Evaluation: 01/17/18 Time of Evaluation: 06:00 - Subjective Subjective: Patient seen and evaluated bedside. No acute issues overnight. Patient complaining of abdominal pain. Denies chest pain, shortness of breath, fever, chills or any other complaints at this time. Objective - Vital Signs/Intake and Output Vital Signs (last 24 hours): Temp Pulse Resp BP Pulse Ox 99.5 F 101 H 20 138/86 98 01/16/18 22:25 01/16/18 18:30 01/16/18 22:25 01/16/18 22:25 01/16/18 22:25 Intake and Output: 01/16/18 01/17/18 18:59 06:59 Intake Total 1280 360 Output Total 475 Balance 1280 -115 - Medications Medications: Current Medications Acetaminophen (Tylenol 325mg Tab) 650 mg PO Q6H PRN PRN Reason: FEVER>=99.5F Last Admin: 01/15/18 00:58 Dose: 650 mg Acetaminophen (Tylenol 650 Mg Supp) 650 mg RC Q6H PRN PRN Reason: TEMP>=99.5F Amitriptyline HCl (Elavil) 25 mg PO HS [facility] Last Admin: 01/16/18 21:12 Dose: 25 mg Gabapentin (Neurontin) 400 mg PO TID [facility] PRN Reason: Protocol Last Admin: 01/16/18 18:38 Dose: 400 mg Hydromorphone HCl (Dilaudid) 2 mg IVP Q4H PRN PRN Reason: Pain, severe (8-10) Last Admin: 01/17/18 04:44 Dose: 2 mg Cefazolin Sodium 2 gm/ Sodium (Chloride) 100 mls @ 200 mls/hr IVPB Q8 [facility] PRN Reason: Protocol Last Admin: 01/17/18 05:40 Dose: 200 mls/hr Fat Emulsion Intravenous (Intralipid 20%) 250 mls @ 21 mls/hr IV MWF@1800 [facility] Last Admin: 01/16/18 18:30 Dose: 21 mls/hr Multivitamins/Vitamin C 10 ml/Insulin Human Regular 5 units / Amino Acids/ Electrolytes/Dextrose 2,010.05 mls @ 83 mls/hr IV .Q24H [facility] Last Admin: 01/16/18 18:31 Dose: 83 mls/hr Sodium Chloride (Sodium Chloride 0.9%) 1,000 mls @ 80 mls/hr IV .[id number] [facility] Last Admin: 01/16/18 11:28 Dose: 80 mls/hr Lactic Acid (Lac-Hydrin 12% Lotion (225 G)) 0 gm EXT DAILY [facility] Last Admin: 01/16/18 11:01 Dose: 1 applic Metoprolol Tartrate (Lopressor) 12.5 mg PO BID [facility] Last Admin: 01/16/18 18:30 Dose: 12.5 mg Midodrine (Proamatine) 10 mg PO TID [facility] Last Admin: 01/16/18 18:36 Dose: 10 mg Octreotide Acetate (Sandostatin) 100 mcg SC DAILY [facility] Stop: 01/19/18 15:16 Last Admin: 01/16/18 10:47 Dose: 100 mcg Ondansetron HCl (Zofran Inj) 4 mg IVP Q4H PRN PRN Reason: Nausea/Vomiting Last Admin: 01/16/18 10:31 Dose: 4 mg Pantoprazole Sodium (Protonix Ec Tab) 40 mg PO ACB [facility] Last Admin: 01/16/18 08:28 Dose: 40 mg Potassium Chloride (Potassium Chloride Oral Soln) 20 meq PO BID [facility] Stop: 01/20/18 10:01 Last Admin: 01/16/18 18:35 Dose: 20 meq Sodium Bicarbonate (Sodium Bicarbonate Tab) 1,300 mg PO BID [facility] Last Admin: 01/16/18 18:35 Dose: 1,300 mg - Labs Labs: 01/16/18 06:30 01/16/18 06:30 PT 15.8 SECONDS (9.4-12.5) H 01/16/18 14:31 INR 1.38 (0.93-1.08) H 01/16/18 14:31 APTT 40.6 Seconds (25.1-36.5) H 01/16/18 14:31 - Constitutional Appears: Non-toxic, No Acute Distress, Chronically Ill - Head Exam Head Exam: ATRAUMATIC, NORMAL INSPECTION, NORMOCEPHALIC - Eye Exam Eye Exam: Normal appearance - ENT Exam ENT Exam: Mucous Membranes Moist - Respiratory Exam Respiratory Exam: Clear to Ausculation Bilateral, NORMAL BREATHING PATTERN - Cardiovascular Exam Cardiovascular Exam: Tachycardia, +S1, +S2 - GI/Abdominal Exam GI & Abdominal Exam: Soft Additional comments: ileostomy in place, with bleeding - Extremities Exam Extremities Exam: absent: Pedal Edema - Neurological Exam Neurological Exam: Alert, Awake, Oriented x3 Assessment and Plan - Assessment and Plan (Free Text) Assessment: 62 year old male with PMHx of carcinoid tumor diagnosed 4 years ago s/p colectomy, ileostomy, right sided nephrostomy tube, recently discharged from the hospital for sepsis from pyelonephritis/cystitis, PEG tube with chronic bowel obstruction and PICC line on TPN, presented to the hospital for near syncope. Patient is being treated for sepsis, PRANAV, elevated liver function and bleeding form ileostomy site. Plan: 1. Sepsis -afebrile -leukocytosis -ID consulted -cefazolin day 8 -intial Blood cultures showing gram negative rods, repeat showing no growth currently -likely secondary from PICC line, which was removed -tachycardic 2. Anemia -status post 4 units PRBC -continue to monitor 3. Elevated Liver Enzymes and Elevated Bilirubin -continue to trend -CT abdomen/pelvis: no acute intrabdominal findings -GI Olivo consulted, follow recs -octreotide 4. Carcinoid Tumor-chronic -palliative care consult -pain medications -right chemo cath placed -TPN 5. PRANAV -nephro consulted, Oumar, follow recs -continue fluidsd -sodium bicarb 6. Hypotension-chronic -continue to monitor -continue home meds 7. Bleeding From ileostomy -GI consulted, Pallavi, will perform enteroscopy -Vit K given for increased coags -hold heparin -repeat PT/INR in AM PPX: GI: protonix DVT: heparin SC on hold Physical Therapy pending, OOB to chair Patient seen and discussed with attending Dr. Wagner
--- NOTE | 2018-01-17 06:50 | CP.PCM.PN ---
Subjective - Date & Time of Evaluation Date of Evaluation: 01/16/18 Time of Evaluation: 06:00 Objective - Vital Signs/Intake and Output Vital Signs (last 24 hours): Temp Pulse Resp BP Pulse Ox 99.5 F 101 H 20 138/86 98 01/16/18 22:25 01/16/18 18:30 01/16/18 22:25 01/16/18 22:25 01/16/18 22:25 Intake and Output: 01/16/18 01/17/18 18:59 06:59 Intake Total 1280 360 Output Total 475 Balance 1280 -115 - Medications Medications: Current Medications Acetaminophen (Tylenol 325mg Tab) 650 mg PO Q6H PRN PRN Reason: FEVER>=99.5F Last Admin: 01/15/18 00:58 Dose: 650 mg Acetaminophen (Tylenol 650 Mg Supp) 650 mg RC Q6H PRN PRN Reason: TEMP>=99.5F Amitriptyline HCl (Elavil) 25 mg PO HS [facility] Last Admin: 01/16/18 21:12 Dose: 25 mg Gabapentin (Neurontin) 400 mg PO TID [facility] PRN Reason: Protocol Last Admin: 01/16/18 18:38 Dose: 400 mg Hydromorphone HCl (Dilaudid) 2 mg IVP Q4H PRN PRN Reason: Pain, severe (8-10) Last Admin: 01/17/18 04:44 Dose: 2 mg Cefazolin Sodium 2 gm/ Sodium (Chloride) 100 mls @ 200 mls/hr IVPB Q8 [facility] PRN Reason: Protocol Last Admin: 01/17/18 05:40 Dose: 200 mls/hr Fat Emulsion Intravenous (Intralipid 20%) 250 mls @ 21 mls/hr IV MWF@1800 [facility] Last Admin: 01/16/18 18:30 Dose: 21 mls/hr Multivitamins/Vitamin C 10 ml/Insulin Human Regular 5 units / Amino Acids/ Electrolytes/Dextrose 2,010.05 mls @ 83 mls/hr IV .Q24H [facility] Last Admin: 01/16/18 18:31 Dose: 83 mls/hr Sodium Chloride (Sodium Chloride 0.9%) 1,000 mls @ 80 mls/hr IV .[id number] [facility] Last Admin: 01/16/18 11:28 Dose: 80 mls/hr Lactic Acid (Lac-Hydrin 12% Lotion (225 G)) 0 gm EXT DAILY [facility] Last Admin: 01/16/18 11:01 Dose: 1 applic Metoprolol Tartrate (Lopressor) 12.5 mg PO BID [facility] Last Admin: 01/16/18 18:30 Dose: 12.5 mg Midodrine (Proamatine) 10 mg PO TID [facility] Last Admin: 01/16/18 18:36 Dose: 10 mg Octreotide Acetate (Sandostatin) 100 mcg SC DAILY [facility] Stop: 01/19/18 15:16 Last Admin: 01/16/18 10:47 Dose: 100 mcg Ondansetron HCl (Zofran Inj) 4 mg IVP Q4H PRN PRN Reason: Nausea/Vomiting Last Admin: 01/16/18 10:31 Dose: 4 mg Pantoprazole Sodium (Protonix Ec Tab) 40 mg PO ACB [facility] Last Admin: 01/16/18 08:28 Dose: 40 mg Potassium Chloride (Potassium Chloride Oral Soln) 20 meq PO BID [facility] Stop: 01/20/18 10:01 Last Admin: 01/16/18 18:35 Dose: 20 meq Sodium Bicarbonate (Sodium Bicarbonate Tab) 1,300 mg PO BID [facility] Last Admin: 01/16/18 18:35 Dose: 1,300 mg - Labs Labs: 01/16/18 06:30 01/16/18 06:30 PT 15.8 SECONDS (9.4-12.5) H 01/16/18 14:31 INR 1.38 (0.93-1.08) H 01/16/18 14:31 APTT 40.6 Seconds (25.1-36.5) H 01/16/18 14:31
[2018-01-17 07:22] LABS: BASO # 0.04 K/mm3 (0.0-2.0); BASO % 0.1 % (0.0-3.0); EOS # 0.1 (0.0-0.7); EOS % 0.4 % (1.5-5.0); GRAN % 84.7 % (50.0-68.0); HEMOGLOBIN 10.2 g/dL (14.0-18.0); LYMPH # 2.5 (1.2-3.4); LYMPH % 9.2 % (22.0-35.0); MEAN CELL VOLUME 85.5 fl (80.0-105.0); MEAN CORPUSCULAR HEMOGLOBIN 29.6 pg (25.0-35.0); MEAN CORPUSCULAR HGB CONC 34.6 g/dl (31.0-37.0); MEAN PLATELET VOLUME 11.5 fl (7.0-11.0); MONO # 1.5 (0.1-0.6); MONO % 5.6 % (1.0-6.0); RBC 3.45 10^6/uL (3.5-6.1); RED CELL DISTRIBUTION WIDTH 16.9 % (11.5-14.5)
[2018-01-17 07:26] LABS: WHITE BLOOD COUNT 27.2 10^3/ul (4.5-11.0)
[2018-01-17 07:51] LABS: ALB/GLOB RATIO 0.7 (1.1-1.8); ALBUMIN 2.6 g/dL (3.0-4.8); ALT/SGPT 22 U/L (7-56); AST/SGOT 71 U/L (17-59); BILIRUBIN,DIRECT 7.5 mg/dL (0.0-0.4); BLOOD UREA NITROGEN 28 mg/dL (7-21); CALCIUM 9.5 mg/dL (8.4-10.5); GFR AFRICAN-AMERICAN > 60; GFR NON-AFRICAN AMERICAN > 60
--- NOTE | 2018-01-17 08:53 | CP.PCM.PN ---
Subjective - Date & Time of Evaluation Date of Evaluation: 01/17/18 Time of Evaluation: 07:10 - Subjective Subjective: PGY-1 surgery progress note for Dr. Ridley Patient seen and examined. Patient reports ongoing dark red blood in his ostomy bag. No acute events noted. Objective - Vital Signs/Intake and Output Vital Signs (last 24 hours): Temp Pulse Resp BP Pulse Ox 97.7 F 97 H 24 120/74 96 01/17/18 08:15 01/17/18 08:15 01/17/18 08:15 01/17/18 08:15 01/17/18 08:15 Intake and Output: 01/17/18 01/17/18 06:59 18:59 Intake Total 360 Output Total 475 Balance -115 - Medications Medications: Current Medications Acetaminophen (Tylenol 325mg Tab) 650 mg PO Q6H PRN PRN Reason: FEVER>=99.5F Last Admin: 01/15/18 00:58 Dose: 650 mg Acetaminophen (Tylenol 650 Mg Supp) 650 mg RC Q6H PRN PRN Reason: TEMP>=99.5F Amitriptyline HCl (Elavil) 25 mg PO HS [facility] Last Admin: 01/16/18 21:12 Dose: 25 mg Gabapentin (Neurontin) 400 mg PO TID [facility] PRN Reason: Protocol Last Admin: 01/16/18 18:38 Dose: 400 mg Hydromorphone HCl (Dilaudid) 2 mg IVP Q4H PRN PRN Reason: Pain, severe (8-10) Last Admin: 01/17/18 08:39 Dose: 2 mg Cefazolin Sodium 2 gm/ Sodium (Chloride) 100 mls @ 200 mls/hr IVPB Q8 [facility] PRN Reason: Protocol Last Admin: 01/17/18 05:40 Dose: 200 mls/hr Fat Emulsion Intravenous (Intralipid 20%) 250 mls @ 21 mls/hr IV MWF@1800 [facility] Last Admin: 01/16/18 18:30 Dose: 21 mls/hr Multivitamins/Vitamin C 10 ml/Insulin Human Regular 5 units / Amino Acids/ Electrolytes/Dextrose 2,010.05 mls @ 83 mls/hr IV .Q24H [facility] Last Admin: 01/16/18 18:31 Dose: 83 mls/hr Sodium Chloride (Sodium Chloride 0.9%) 1,000 mls @ 80 mls/hr IV .[id number] [facility] Last Admin: 01/16/18 11:28 Dose: 80 mls/hr Lactic Acid (Lac-Hydrin 12% Lotion (225 G)) 0 gm EXT DAILY [facility] Last Admin: 01/16/18 11:01 Dose: 1 applic Metoprolol Tartrate (Lopressor) 12.5 mg PO BID [facility] Last Admin: 01/16/18 18:30 Dose: 12.5 mg Midodrine (Proamatine) 10 mg PO TID [facility] Last Admin: 01/16/18 18:36 Dose: 10 mg Octreotide Acetate (Sandostatin) 100 mcg SC DAILY [facility] Stop: 01/19/18 15:16 Last Admin: 01/16/18 10:47 Dose: 100 mcg Ondansetron HCl (Zofran Inj) 4 mg IVP Q4H PRN PRN Reason: Nausea/Vomiting Last Admin: 01/17/18 08:39 Dose: 4 mg Pantoprazole Sodium (Protonix Ec Tab) 40 mg PO ACB [facility] Last Admin: 01/16/18 08:28 Dose: 40 mg Potassium Chloride (Potassium Chloride Oral Soln) 20 meq PO BID [facility] Stop: 01/20/18 10:01 Last Admin: 01/16/18 18:35 Dose: 20 meq Sodium Bicarbonate (Sodium Bicarbonate Tab) 1,300 mg PO BID [facility] Last Admin: 01/16/18 18:35 Dose: 1,300 mg - Labs Labs: 01/17/18 07:18 01/17/18 07:18 PT 15.8 SECONDS (9.4-12.5) H 01/16/18 14:31 INR 1.38 (0.93-1.08) H 01/16/18 14:31 APTT 40.6 Seconds (25.1-36.5) H 01/16/18 14:31 - Constitutional Appears: No Acute Distress, Chronically Ill - Head Exam Head Exam: ATRAUMATIC, NORMOCEPHALIC - Eye Exam Eye Exam: EOMI, Scleral icterus - ENT Exam ENT Exam: Mucous Membranes Moist - Respiratory Exam Respiratory Exam: NORMAL BREATHING PATTERN. absent: Accessory Muscle Use, Respiratory Distress - Cardiovascular Exam Cardiovascular Exam: +S1, +S2 - GI/Abdominal Exam GI & Abdominal Exam: Rigid, Tenderness Additional comments: G-tube in place Right sided illeostomy with dark red blood in the bag. Unclear whether the blood could be coming from the site of the skin junction with the stoma. - Extremities Exam Extremities Exam: absent: Pedal Edema - Back Exam Additional comments: Right sided nephrostomy tube in place - Neurological Exam Neurological Exam: Alert, Awake, Oriented x3 - Psychiatric Exam Psychiatric exam: Anxious - Skin Skin Exam: Dry, Warm Additional comments: Jaundice Assessment and Plan - Assessment and Plan (Free Text) Assessment: This is a 62 year old male with PMHx carcinoid tumor of the GI tract s/p colostectomy with illeostomy with dark red blood coming out of the ostomy. Plan: Illeostomy Bleeding F/u GI re-evaluation. Awaiting enteroscopy through the illeostomy. Continue to monitor H/H Transfuse as needed Poor surgical candidate due to advanced disease process. No surgical intervention at this time. Requesting records from [facility] Discussed with Dr. Khai Messina PGY-1
[2018-01-17] MEDS: Pantoprazole 40 mg EC Tab PO SCH (10:52)
[2018-01-17] MEDS: Potassium Chloride 20 mEq/15 ml LIQ UD PO SCH ×2 (10:52→18:40)
[2018-01-17] MEDS: Ammonium Lactate 12% Lotion (225 g) EXT SCH (10:53)
[2018-01-17] MEDS ORDERED: Phytonadione 10 MG in Sodium Chloride 0.9% 50 ML IV ONE (10:55)
--- NOTE | 2018-01-17 12:11 | CP.PCM.PN ---
Subjective - Date & Time of Evaluation Date of Evaluation: 01/17/18 Time of Evaluation: 11:00 - Subjective Subjective: Complains of a persistent abdominal pain Objective - Vital Signs/Intake and Output Vital Signs (last 24 hours): Temp Pulse Resp BP Pulse Ox 97.7 F 97 H 24 120/74 96 01/17/18 08:15 01/17/18 08:15 01/17/18 08:15 01/17/18 08:15 01/17/18 08:15 Intake and Output: 01/17/18 01/17/18 06:59 18:59 Intake Total 360 Output Total 475 Balance -115 - Medications Medications: Current Medications Acetaminophen (Tylenol 325mg Tab) 650 mg PO Q6H PRN PRN Reason: FEVER>=99.5F Last Admin: 01/15/18 00:58 Dose: 650 mg Acetaminophen (Tylenol 650 Mg Supp) 650 mg RC Q6H PRN PRN Reason: TEMP>=99.5F Amitriptyline HCl (Elavil) 25 mg PO HS [facility] Last Admin: 01/16/18 21:12 Dose: 25 mg Gabapentin (Neurontin) 400 mg PO TID [facility] PRN Reason: Protocol Last Admin: 01/17/18 10:52 Dose: 400 mg Hydromorphone HCl (Dilaudid) 2 mg IVP Q4H PRN PRN Reason: Pain, severe (8-10) Last Admin: 01/17/18 08:39 Dose: 2 mg Cefazolin Sodium 2 gm/ Sodium (Chloride) 100 mls @ 200 mls/hr IVPB Q8 [facility] PRN Reason: Protocol Last Admin: 01/17/18 05:40 Dose: 200 mls/hr Fat Emulsion Intravenous (Intralipid 20%) 250 mls @ 21 mls/hr IV MWF@1800 [facility] Last Admin: 01/16/18 18:30 Dose: 21 mls/hr Multivitamins/Vitamin C 10 ml/Insulin Human Regular 5 units / Amino Acids/ Electrolytes/Dextrose 2,010.05 mls @ 83 mls/hr IV .Q24H [facility] Last Admin: 01/16/18 18:31 Dose: 83 mls/hr Sodium Chloride (Sodium Chloride 0.9%) 1,000 mls @ 80 mls/hr IV .[id number] [facility] Last Admin: 01/16/18 11:28 Dose: 80 mls/hr Lactic Acid (Lac-Hydrin 12% Lotion (225 G)) 0 gm EXT DAILY [facility] Last Admin: 01/17/18 10:53 Dose: 1 applic Metoprolol Tartrate (Lopressor) 12.5 mg PO BID [facility] Last Admin: 01/17/18 10:52 Dose: 12.5 mg Midodrine (Proamatine) 10 mg PO TID [facility] Last Admin: 01/17/18 10:52 Dose: 10 mg Octreotide Acetate (Sandostatin) 100 mcg SC DAILY [facility] Stop: 01/19/18 15:16 Last Admin: 01/17/18 10:53 Dose: 100 mcg Ondansetron HCl (Zofran Inj) 4 mg IVP Q4H PRN PRN Reason: Nausea/Vomiting Last Admin: 01/17/18 08:39 Dose: 4 mg Pantoprazole Sodium (Protonix Ec Tab) 40 mg PO ACB [facility] Last Admin: 01/17/18 10:52 Dose: 40 mg Potassium Chloride (Potassium Chloride Oral Soln) 20 meq PO BID [facility] Stop: 01/20/18 10:01 Last Admin: 01/17/18 10:52 Dose: 20 meq Sodium Bicarbonate (Sodium Bicarbonate Tab) 1,300 mg PO BID [facility] Last Admin: 01/17/18 10:52 Dose: 1,300 mg - Labs Labs: 01/17/18 07:18 01/17/18 07:18 PT 15.8 SECONDS (9.4-12.5) H 01/16/18 14:31 INR 1.38 (0.93-1.08) H 01/16/18 14:31 APTT 40.6 Seconds (25.1-36.5) H 01/16/18 14:31 - Constitutional Appears: Cachectic, Chronically Ill - Head Exam Head Exam: NORMOCEPHALIC - Eye Exam Eye Exam: Normal appearance, PERRL - ENT Exam ENT Exam: Mucous Membranes Moist - Respiratory Exam Respiratory Exam: Decreased Breath Sounds, NORMAL BREATHING PATTERN - Cardiovascular Exam Cardiovascular Exam: REGULAR RHYTHM, +S1, +S2 - GI/Abdominal Exam GI & Abdominal Exam: Soft, Tenderness Additional comments: ileostomy bloody stool - Exam Additional comments: r nephrostomy tube - Neurological Exam Neurological Exam: Alert, Oriented x3 - Skin Skin Exam: Dry, Pallor Assessment and Plan - Assessment and Plan (Free Text) Assessment: 62 year old male with history of carcinoid tumor, s/p colectomy, ileastomy, right nephrostmy,G tube who is admitted with sepsis,PRANAV, anemia, bloody drainage from ileostomy. I spoke with Mrs. Cameron via phone. She is unable to come to the hospital today so we scheduled a meeting for early tomorrow morning. is experiencing psychosocial distress. She is very afraid of losing her . She understands that he is "much sicker this time", but having a hard time accepting that he may be nearing end of life. expressed that she is alone with her two daughters and that there are no other family members/ friends to support her. She states that she wants to take her home and feels she can care for him herself. I explained that there were options such as hospice which we should talk about. admits to feeling very depressed. She was crying intermittently throughout our conversation. Advised her that social insurance administrator will also assist with developing goals of care. I reiterated that we would talk about various options for husbands care. She is appreciative of palliative support. The patient is aware that his cancer is very advanced. He is weak and complains of persistent abdominal pain. I explained that due to his extreme debility and multiple medical issues, cancer treatment may no longer be an option. Encouraged to consider hospice care. I informed him that his would be coming in tomorrow morning so that we could all discuss goals of care and advance care planning> The paitn is agreeable with this plan Time spent in goals of care discussion with patient and , 45 minutes Plan: Goals of care and advance care planning Bleeding from Ileostomy: Monitor. GI to do enteroscopy. No surgery intervention recommended at this time Pain: Would consider adding Fentanyl 25 mcg for longer acting coverage. Keep Diluadid 2 mg IV for breakthrough pain
--- NOTE | 2018-01-17 12:27 | CP.PCM.PN ---
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 Maintain hemodynamics stable. avoid hypotension. Patient not on ACEI/ARB due to PRANAV and low BP Monitor Input/Output, daily weights and renal function with basic metabolic panel supplements electrolytes as needed pt now on TPN. ID, GI and urology involved continued sodium bicarb 1300 mg bid Anemia management as per heme/onc or primary team consider octreotide to reduce GI fluid loss, d/w team and agreed. supplement lytes as needed, ordered for KCL palliative care involved Dose meds/antibiotics for improved GFR. Glycemic control Further work up/management as per primary team Thanks for allowing me to participate in care of your patient. Will sign off and follow further PRN. Please call if any Qs. 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 overall symptoms worsening. renal consult for PRANAV. pt with lactic acidosis and hyperbilir as well. Denies OTC/herbal meds or NSAIDs No recent iodinated contrast exposure. Noted episode of low BP (96/52). ROS: feels better Cardiovascular: No chest pain. Pulmonary: No shortness of breath Gastrointestinal: c/o abdominal pain denies nausea. No vomiting. ostomy with bloody output Genitourinary: No pain while urinating. s/p nephrostomy tube change 01/10/18 All other negative except as in HPI Physical Examination: General Appearance: comfortable, in no acute respiratory distress, co-operative . ill appearing Vitals reviewed and noted as below Head; Atraumatic, normocephalic ENT: no ulcers no thrush. Tongue is midline/coated. Oropharynx: no rash or ulcers. EYES: Pupils are equal, round and reactive to light accommodation. Eye muscles and extraocular movement intact. Sclera is icteric. Neck; supple no lymphadenopathy, no thyromegaly or bruit. has echymose around portacath and Rt chest Lungs: Normal respiratory rate/effort. Breath sounds bilateral equal and clear Heart: Increased rate. s1s2 normal. No rub or gallop. Extremities: ankle edema. No varicose veins Neurological: Patient is awake alert follows command Skin: Warm and dry. Normal turgor. No rash. Palpitation: Normal elasticity for age Abdomen: Abdomen is soft. Bowel sounds +. There is no abdominal tenderness, no guarding/rigidity no organomegaly. has iletostomy and G tube Psych: normal insight and normal affect/mood MSK: no joint tenderness or swelling. Digits and nails normal, no deformity : kidney or bladder not palpable. has Rt nephrostomy tube draining hemorrhagic urine but clearer Labs/imaging reviewed. Past medical history, past surgical history, family history, social history, allergy reviewed and noted as below Family hx: no hx of CKD. Rest non-contributory renal imaging WNL Objective - Vital Signs/Intake and Output Vital Signs (last 24 hours): Temp Pulse Resp BP Pulse Ox 97.7 F 97 H 24 120/74 96 01/17/18 08:15 01/17/18 08:15 01/17/18 08:15 01/17/18 08:15 01/17/18 08:15 Intake and Output: 01/17/18 01/17/18 06:59 18:59 Intake Total 360 Output Total 475 Balance -115 - Medications Medications: Current Medications Acetaminophen (Tylenol 325mg Tab) 650 mg PO Q6H PRN PRN Reason: FEVER>=99.5F Last Admin: 01/15/18 00:58 Dose: 650 mg Acetaminophen (Tylenol 650 Mg Supp) 650 mg RC Q6H PRN PRN Reason: TEMP>=99.5F Amitriptyline HCl (Elavil) 25 mg PO HS TAMMY Last Admin: 01/16/18 21:12 Dose: 25 mg Gabapentin (Neurontin) 400 mg PO TID [facility] PRN Reason: Protocol Last Admin: 01/17/18 10:52 Dose: 400 mg Hydromorphone HCl (Dilaudid) 2 mg IVP Q4H PRN PRN Reason: Pain, severe (8-10) Last Admin: 01/17/18 08:39 Dose: 2 mg Cefazolin Sodium 2 gm/ Sodium (Chloride) 100 mls @ 200 mls/hr IVPB Q8 TAMMY PRN Reason: Protocol Last Admin: 01/17/18 05:40 Dose: 200 mls/hr Fat Emulsion Intravenous (Intralipid 20%) 250 mls @ 21 mls/hr IV MWF@1800 [facility] Last Admin: 01/16/18 18:30 Dose: 21 mls/hr Multivitamins/Vitamin C 10 ml/Insulin Human Regular 5 units / Amino Acids/ Electrolytes/Dextrose 2,010.05 mls @ 83 mls/hr IV .Q24H [facility] Last Admin: 01/16/18 18:31 Dose: 83 mls/hr Sodium Chloride (Sodium Chloride 0.9%) 1,000 mls @ 80 mls/hr IV .[id number] [facility] Last Admin: 01/16/18 11:28 Dose: 80 mls/hr Lactic Acid (Lac-Hydrin 12% Lotion (225 G)) 0 gm EXT DAILY [facility] Last Admin: 01/17/18 10:53 Dose: 1 applic Metoprolol Tartrate (Lopressor) 12.5 mg PO BID [facility] Last Admin: 01/17/18 10:52 Dose: 12.5 mg Midodrine (Proamatine) 10 mg PO TID [facility] Last Admin: 01/17/18 10:52 Dose: 10 mg Octreotide Acetate (Sandostatin) 100 mcg SC DAILY [facility] Stop: 01/19/18 15:16 Last Admin: 01/17/18 10:53 Dose: 100 mcg Ondansetron HCl (Zofran Inj) 4 mg IVP Q4H PRN PRN Reason: Nausea/Vomiting Last Admin: 01/17/18 08:39 Dose: 4 mg Pantoprazole Sodium (Protonix Ec Tab) 40 mg PO ACB [facility] Last Admin: 01/17/18 10:52 Dose: 40 mg Potassium Chloride (Potassium Chloride Oral Soln) 20 meq PO BID [facility] Stop: 01/20/18 10:01 Last Admin: 01/17/18 10:52 Dose: 20 meq Sodium Bicarbonate (Sodium Bicarbonate Tab) 1,300 mg PO BID TAMMY Last Admin: 01/17/18 10:52 Dose: 1,300 mg - Labs Labs: 01/17/18 07:18 01/17/18 07:18 PT 15.8 SECONDS (9.4-12.5) H 01/16/18 14:31 INR 1.38 (0.93-1.08) H 01/16/18 14:31 APTT 40.6 Seconds (25.1-36.5) H 01/16/18 14:31
[2018-01-17] MEDS ORDERED: Propofol 10 mg/ml Inj (20 ML) ONE (13:54)
[2018-01-17] MEDS ORDERED: Midazolam 2 MG/2 ML VIAL ONE (13:54)
[2018-01-17] MEDS ORDERED: Etomidate 20 mg/10ml Inj IV ONE (13:54)
--- NOTE | 2018-01-17 13:56 | CP.PCM.PN ---
Subjective - Date & Time of Evaluation Date of Evaluation: 01/17/18 Time of Evaluation: 11:00 - Subjective Subjective: Patient still feels weak, still with abdominal pain, no fevers. Objective - Vital Signs/Intake and Output Vital Signs (last 24 hours): Temp Pulse Resp BP Pulse Ox 99.5 F 101 H 20 138/86 98 01/16/18 22:25 01/16/18 18:30 01/16/18 22:25 01/16/18 22:25 01/16/18 22:25 Intake and Output: 01/17/18 01/17/18 06:59 18:59 Intake Total 360 Output Total 475 Balance -115 - Medications Medications: Current Medications Acetaminophen (Tylenol 325mg Tab) 650 mg PO Q6H PRN PRN Reason: FEVER>=99.5F Last Admin: 01/15/18 00:58 Dose: 650 mg Acetaminophen (Tylenol 650 Mg Supp) 650 mg RC Q6H PRN PRN Reason: TEMP>=99.5F Amitriptyline HCl (Elavil) 25 mg PO HS [facility] Last Admin: 01/16/18 21:12 Dose: 25 mg Gabapentin (Neurontin) 400 mg PO TID [facility] PRN Reason: Protocol Last Admin: 01/16/18 18:38 Dose: 400 mg Hydromorphone HCl (Dilaudid) 2 mg IVP Q4H PRN PRN Reason: Pain, severe (8-10) Last Admin: 01/17/18 04:44 Dose: 2 mg Cefazolin Sodium 2 gm/ Sodium (Chloride) 100 mls @ 200 mls/hr IVPB Q8 TAMMY PRN Reason: Protocol Last Admin: 01/17/18 05:40 Dose: 200 mls/hr Fat Emulsion Intravenous (Intralipid 20%) 250 mls @ 21 mls/hr IV MWF@1800 [facility] Last Admin: 01/16/18 18:30 Dose: 21 mls/hr Multivitamins/Vitamin C 10 ml/Insulin Human Regular 5 units / Amino Acids/ Electrolytes/Dextrose 2,010.05 mls @ 83 mls/hr IV .Q24H [facility] Last Admin: 01/16/18 18:31 Dose: 83 mls/hr Sodium Chloride (Sodium Chloride 0.9%) 1,000 mls @ 80 mls/hr IV .[id number] [facility] Last Admin: 01/16/18 11:28 Dose: 80 mls/hr Lactic Acid (Lac-Hydrin 12% Lotion (225 G)) 0 gm EXT DAILY [facility] Last Admin: 01/16/18 11:01 Dose: 1 applic Metoprolol Tartrate (Lopressor) 12.5 mg PO BID [facility] Last Admin: 01/16/18 18:30 Dose: 12.5 mg Midodrine (Proamatine) 10 mg PO TID [facility] Last Admin: 01/16/18 18:36 Dose: 10 mg Octreotide Acetate (Sandostatin) 100 mcg SC DAILY [facility] Stop: 01/19/18 15:16 Last Admin: 01/16/18 10:47 Dose: 100 mcg Ondansetron HCl (Zofran Inj) 4 mg IVP Q4H PRN PRN Reason: Nausea/Vomiting Last Admin: 01/16/18 10:31 Dose: 4 mg Pantoprazole Sodium (Protonix Ec Tab) 40 mg PO ACB [facility] Last Admin: 01/16/18 08:28 Dose: 40 mg Potassium Chloride (Potassium Chloride Oral Soln) 20 meq PO BID [facility] Stop: 01/20/18 10:01 Last Admin: 01/16/18 18:35 Dose: 20 meq Sodium Bicarbonate (Sodium Bicarbonate Tab) 1,300 mg PO BID [facility] Last Admin: 01/16/18 18:35 Dose: 1,300 mg - Labs Labs: 01/17/18 07:18 01/16/18 06:30 PT 15.8 SECONDS (9.4-12.5) H 01/16/18 14:31 INR 1.38 (0.93-1.08) H 01/16/18 14:31 APTT 40.6 Seconds (25.1-36.5) H 01/16/18 14:31 - Constitutional Appears: Cachectic, Chronically Ill - Head Exam Head Exam: NORMAL INSPECTION - Neck Exam Neck Exam: absent: Meningismus - Respiratory Exam Respiratory Exam: Decreased Breath Sounds Additional comments: right sided port with slowly improving surrounding hematoma - Cardiovascular Exam Cardiovascular Exam: +S1, +S2 - GI/Abdominal Exam GI & Abdominal Exam: Soft. absent: Tenderness Assessment and Plan - Assessment and Plan (Free Text) Plan: Assessment severe sepsis with acute on chronic renal failure due to Klebsiella bacteremia probably from PICC line-related infection S/P removal, S/P replacement of nephrostomy tube, S/P placement of new right internal jugular vein central venous catheter/ right chest wall port worsening matting of intestines with GI bleeding as seen on CT A/P history of sepsis S/P right sided pyelonephritis with associated cystitis, with persistent coagulase negative staph bacteremia probably port/ central line as the source S/P removal pneumobilia and elevated bilirubin, consider S/P cholecystectomy R/O choledocholethiasis 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
--- NOTE | 2018-01-17 14:29 | PN ---
DATE: 01/17/2018 SUBJECTIVE: The patient is seen in room 575, bed 1. The patient is lying in the bed. The patient is comfortable. The patient still has bleeding from the ileostomy site. Overnight nurse's notes were reviewed. The patient continued to have bleeding from the ileostomy site. PHYSICAL EXAMINATION VITAL SIGNS: T-max is 99.5, heart rate 97, 101, blood pressure 120/74, 130/86, respiration 24, O2 sat 96%. HEAD: Normocephalic, atraumatic. HEENT: Examination shows pinkish pale conjunctivae, icteric sclerae. No oropharyngeal lesion. Dry oral mucosa. No neck rigidity. CHEST: Examination shows kyphosis. Positive right upper chest Port-A-Cath. Positive kyphosis. LUNGS: Examination shows questionable decreased breath sound at the bases. CARDIOVASCULAR: Shows S1, S2, regular rhythm. Questionable soft systolic murmur left sternal border, right second intercostal space, left second intercostal space. ABDOMEN: Soft, positive ileostomy. Positive bleeding. Positive gastrostomy. GENITOURINARY: Genitalia: Male. Rectal examination is deferred. EXTREMITIES: Shows no pitting edema, no calf numbness, no Luis A's signs. NEUROLOGIC: The patient is alert, awake, responsive. DIAGNOSTICS: WBC is 27.2, hemoglobin/hematocrit 10.2 and 29.5, platelet 242. Granulocytes 85%. PT/PTT 15.8, 40.6, fibrinogen 552. Sodium 145, potassium 3.8, chloride 113, CO2 of 21, anion gap 14, BUN 28, creatinine 1.0, GFR greater than 60, glucose 140, calcium 9.5, magnesium 2, total bili is up to 8.6,, direct bili is 7.5, AST 71, alkaline phosphatase 753, albumin 2.6. Blood and urine cultures negative from January 13. The patient received 4 units of PRBC. CAT scan of the abdomen and pelvis was reviewed and explained to the patient. IMPRESSION AND PLAN: 1. Ileostomy site bleeding. 2. Anemia. 3. Small bilateral pleural effusion, left more than the right. 4. Bibasilar atelectasis. 5. Gastroesophageal reflux. 6. Intrahepatic biliary ductal dilatation. 7. Cholecystectomy. 8. Fatty pancreatic atrophy. 9. Nonvisualized spleen. 10. Right percutaneous nephrostomy. 11. Possible cystitis with incomplete urinary bladder distention. 12. Gastrostomy. 13. Ileostomy. 14. Status post colectomy and appendectomy with ileostomy of the left lower quadrant. 15. Midabdominal small bowel matted mass with thickened irving suggestive of metastasis within the mesentery with secondary adherence of the multiple small bowel loops. 16. Retroperitoneal lymphadenopathy. 17. 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 18. Anasarca. 19. Left gluteal area lipoma. 20. Small bilateral pleural effusion and bibasilar atelectasis, left more than the right. 21. Pneumobilia. 22. Right percutaneous nephrostomy. 23. Colectomy. 24. Appendectomy. 25. Status post ileostomy. 26. Gastric distention with gastrostomy. 27. Nonspecific retroperitoneal upper abdominal lymphadenopathy. 28. Low-grade fever. 29. Tachycardia. 30. Status post hypotension. 31. Persistent refractory leukocytosis with granulocytosis. 32. Normocytic anemia. 33. Questionable mild coagulopathy with elevated fibrinogen level. 34. Prerenal kidney injury. 35. Status post acute renal failure. 36. Hyperglycemia with prediabetes. 37. Severe transaminitis and hyperbilirubinemia. 38. Hyperprocalcitoninemia. 39. Mild hypoalbuminemia. 40. 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 41. Klebsiella pneumoniae bacteremia and sepsis. 42. Funguria 43. Status post packed red blood cell transfusion x4. 44. Severe deconditioning and gait dysfunction. 45. 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 46. Status post right percutaneous nephrostomy with hydronephrosis. 47. Status post venting gastrostomy. 48. Chronic bowel obstruction. 49. Hyperbilirubinemia secondary to hyperalimentation. PLAN: At this time, the patient will be continued on the therapeutic intervention as per the MAR. The patient was seen by Gastroenterology, scheduled for enteroscopy through the left lower quadrant ileostomy. The patient's prognosis is extremely poor which has been explained to the patient by me and multiple other consultants. Serial labs ordered. CURRENT CONSULTATION: Cardiology, Palliative Care, Urology, Infectious Disease, Gastroenterology, Interventional Radiology, Podiatry, Surgery. CURRENT MEDICATIONS: Ancef 2 g IV every 8 hours, IV Clinimix 83 mL an hour, Dilaudid 2 mg IV every 4 hours p.r.n., Elavil 25 mg at bedtime, Intralipid 20% 250 ml on Tuesday, Tuesday, Tuesday, Lac-Hydrin lotion to the feet., Lopressor 12.5 twice a day, Neurontin 400 three times a day, K-Dur 20 mEq twice a day, ProAmatine 10 mg three times a day, Protonix 40 mg daily, Sandostatin 100 mcg subcu daily for 7 days, sodium bicarbonate 1300 mg twice a day, IV fluid 0.9 normal saline at 80 mL an hour, Tylenol 650 mg suppository by mouth every 6 hours. The patient is ordered vitamin K 10 mg IV x1 dose to reverse coagulopathy and to achieve some bleeding control from ileostomy, Zofran 4 mg IV every 4 hours p.r.n. The patient has been ordered out of bed, occupational therapy, physical therapy, ambulation therapy. We are still awaiting evaluation enteroscopy by Gastroenterology. We are awaiting family meeting with Palliative Care for the patient, but according to the Gastroenterology note, the patient wants everything done. Dictated and electronically signed, not read. Sergio Wagner MD
[2018-01-18] MEDS: HYDROmorphone 2 mg/ml ISec IVP PRN ×6 (01:36→23:02)
[2018-01-18] MEDS: ceFAZolin 2 GM in Sodium Chloride 0.9% 100 ML IVPB SCH ×3 (05:27→22:10)
[2018-01-18 06:51] LABS: BASO # 0.02 K/mm3 (0.0-2.0); BASO % 0.1 % (0.0-3.0); EOS # 0.4 (0.0-0.7); EOS % 2.5 % (1.5-5.0); GRAN # 11.61 (1.4-6.5); GRAN % 78.5 % (50.0-68.0); HEMOGLOBIN 9.4 g/dL (14.0-18.0); LYMPH # 1.7 (1.2-3.4); LYMPH % 11.3 % (22.0-35.0); MEAN CELL VOLUME 86.2 fl (80.0-105.0); MEAN CORPUSCULAR HEMOGLOBIN 28.7 pg (25.0-35.0); MEAN CORPUSCULAR HGB CONC 33.3 g/dl (31.0-37.0); MEAN PLATELET VOLUME 11.6 fl (7.0-11.0); MONO # 1.1 (0.1-0.6); MONO % 7.6 % (1.0-6.0); RBC 3.27 10^6/uL (3.5-6.1); RED CELL DISTRIBUTION WIDTH 16.7 % (11.5-14.5); WHITE BLOOD COUNT 14.8 10^3/ul (4.5-11.0)
--- NOTE | 2018-01-18 06:56 | CP.PCM.PN ---
Subjective - Date & Time of Evaluation Date of Evaluation: 01/18/18 Time of Evaluation: 06:00 - Subjective Subjective: Patient seen and evaluated bedside. No acute issues overnight. Patient still complaining of pain and says he feels weak. Denies any chest pain, shortness of breath, nausea, vomiting. Objective - Vital Signs/Intake and Output Vital Signs (last 24 hours): Temp Pulse Resp BP Pulse Ox 99 F 102 H 20 118/74 99 01/17/18 22:13 01/17/18 22:13 01/17/18 22:13 01/17/18 22:13 01/17/18 22:13 Intake and Output: 01/17/18 01/18/18 18:59 06:59 Intake Total 480 Output Total 2075 Balance -1595 - Medications Medications: Current Medications Acetaminophen (Tylenol 325mg Tab) 650 mg PO Q6H PRN PRN Reason: FEVER>=99.5F Last Admin: 01/15/18 00:58 Dose: 650 mg Acetaminophen (Tylenol 650 Mg Supp) 650 mg RC Q6H PRN PRN Reason: TEMP>=99.5F Fentanyl (Duragesic) 1 patch TD Q72H TAMMY Hydromorphone HCl (Dilaudid) 2 mg IVP Q4H PRN PRN Reason: Pain, severe (8-10) Last Admin: 01/18/18 05:26 Dose: 2 mg Cefazolin Sodium 2 gm/ Sodium (Chloride) 100 mls @ 200 mls/hr IVPB Q8 TAMMY PRN Reason: Protocol Last Admin: 01/18/18 05:27 Dose: 200 mls/hr Multivitamins/Vitamin C 10 ml/Insulin Human Regular 5 units / Amino Acids/ Electrolytes/Dextrose 2,010.05 mls @ 83 mls/hr IV .Q24H [facility] Last Admin: 01/18/18 00:10 Dose: 83 mls/hr Sodium Chloride (Sodium Chloride 0.9%) 1,000 mls @ 100 mls/hr IV .Q10H [facility]AMMY Lactic Acid (Lac-Hydrin 12% Lotion (225 G)) [address] [facility] Last Admin: 01/17/18 10:53 Dose: 1 applic Metoprolol Tartrate (Lopressor) 12.[address] [facility] Last Admin: 01/17/18 18:40 Dose: 12.5 mg Midodrine (Proamatine) [address] [facility] Last Admin: 01/17/18 18:40 Dose: 10 mg Octreotide Acetate (Sandostatin) [address] [facility] Stop: 01/19/18 15:16 Last Admin: 01/17/18 10:53 Dose: 100 mcg Ondansetron HCl (Zofran Inj) 4 mg IVP Q4H PRN PRN Reason: Nausea/Vomiting Last Admin: 01/17/18 08:39 Dose: 4 mg Pantoprazole Sodium (Protonix Ec Tab) [address] [facility] Last Admin: 01/17/18 10:52 Dose: 40 mg Potassium Chloride (Potassium Chloride Oral Soln) [address] [facility] Stop: 01/20/18 10:01 Last Admin: 01/17/18 18:40 Dose: 20 meq Sodium Bicarbonate (Sodium Bicarbonate Tab) 1,[address] [facility] Last Admin: 01/17/18 18:40 Dose: 1,300 mg - Labs Labs: 01/17/18 07:18 01/17/18 07:18 PT 15.8 SECONDS (9.4-12.5) H 01/16/18 14:31 INR 1.38 (0.93-1.08) H 01/16/18 14:31 APTT 40.6 Seconds (25.1-36.5) H 01/16/18 14:31 - Constitutional Appears: Non-toxic, No Acute Distress, Chronically Ill - Head Exam Head Exam: ATRAUMATIC, NORMAL INSPECTION, NORMOCEPHALIC - Eye Exam Eye Exam: Normal appearance - ENT Exam ENT Exam: Mucous Membranes Moist - Respiratory Exam Respiratory Exam: Clear to Ausculation Bilateral, NORMAL BREATHING PATTERN - Cardiovascular Exam Cardiovascular Exam: Tachycardia - GI/Abdominal Exam GI & Abdominal Exam: Soft Additional comments: ileostomy in place - Neurological Exam Neurological Exam: Alert, Awake, Oriented x3 Assessment and Plan - Assessment and Plan (Free Text) Assessment: 62 year old male with PMHx of carcinoid tumor diagnosed 4 years ago s/p colectomy, ileostomy, right sided nephrostomy tube, recently discharged from the hospital for sepsis from pyelonephritis/cystitis, PEG tube with chronic bowel obstruction and PICC line on TPN, presented to the hospital for near syncope. Patient is being treated for sepsis, PRANAV, elevated liver function and bleeding form ileostomy site. Plan: 1. Sepsis -afebrile -leukocytosis -ID consulted -cefazolin day 9 -intial Blood cultures showing gram negative rods, repeat showing no growth currently -likely secondary from PICC line, which was removed -tachycardic 2. Anemia -status post 4 units PRBC -continue to monitor 3. Elevated Liver Enzymes and Elevated Bilirubin -continue to trend -CT abdomen/pelvis: no acute intrabdominal findings -GI Olivo consulted, follow recs -octreotide 4. Carcinoid Tumor-chronic -palliative care consult -pain medications -right chemo cath -TPN -Heme consulted, riaz, follow recs 5. PRANAV -nephro consulted, Oumar, follow recs -continue fluids -sodium bicarb 6. Hypotension-chronic -continue to monitor -continue home meds 7. Bleeding From ileostomy -GI consulted, Pallavi, follow recs -hold heparin -enteroscopy showing bleeding but no luminal mass PPX: GI: protonix DVT: heparin SC on hold Patient made DNR/DNI this morning, will have family meeting to discuss possible hospice care Patient seen and discussed with attending Dr. Wagner
[2018-01-18 07:19] LABS: INR 1.28 (0.93-1.08); PARTIAL THROMBOPLASTIN TIME 38.2 Seconds (25.1-36.5); PROTHROMBIN TIME 14.8 SECONDS (9.4-12.5)
[2018-01-18 07:22] LABS: ALB/GLOB RATIO 0.6 (1.1-1.8); ALBUMIN 2.4 g/dL (3.0-4.8); ALT/SGPT 25 U/L (7-56); AST/SGOT 79 U/L (17-59); BILIRUBIN,DIRECT 7.6 mg/dL (0.0-0.4); BLOOD UREA NITROGEN 30 mg/dL (7-21); CALCIUM 9.6 mg/dL (8.4-10.5); GFR AFRICAN-AMERICAN > 60; GFR NON-AFRICAN AMERICAN > 60
[2018-01-18] MEDS: Pantoprazole 40 mg EC Tab PO SCH (08:04)
--- NOTE | 2018-01-18 09:06 | CP.PCM.PN ---
Subjective - Date & Time of Evaluation Date of Evaluation: 01/18/18 Time of Evaluation: 09:00 - Subjective Subjective: Alert, oriented,weak. Objective - Vital Signs/Intake and Output Vital Signs (last 24 hours): Temp Pulse Resp BP Pulse Ox 98.6 F 105 H 19 132/88 100 01/18/18 08:17 01/18/18 08:17 01/18/18 08:17 01/18/18 08:17 01/18/18 08:17 Intake and Output: 01/18/18 01/18/18 06:59 18:59 Intake Total 480 Output Total 2075 Balance -1595 - Medications Medications: Current Medications Acetaminophen (Tylenol 325mg Tab) 650 mg PO Q6H PRN PRN Reason: FEVER>=99.5F Last Admin: 01/15/18 00:58 Dose: 650 mg Acetaminophen (Tylenol 650 Mg Supp) 650 mg RC Q6H PRN PRN Reason: TEMP>=99.5F Fentanyl (Duragesic) 1 patch TD Q72H [facility] Last Admin: 01/18/18 08:04 Dose: 1 patch Hydromorphone HCl (Dilaudid) 2 mg IVP Q4H PRN PRN Reason: Pain, severe (8-10) Last Admin: 01/18/18 05:26 Dose: 2 mg Cefazolin Sodium 2 gm/ Sodium (Chloride) 100 mls @ 200 mls/hr IVPB Q8 TAMMY PRN Reason: Protocol Last Admin: 01/18/18 05:27 Dose: 200 mls/hr Multivitamins/Vitamin C 10 ml/Insulin Human Regular 5 units / Amino Acids/ Electrolytes/Dextrose 2,010.05 mls @ 83 mls/hr IV .Q24H [facility] Last Admin: 01/18/18 00:10 Dose: 83 mls/hr Sodium Chloride (Sodium Chloride 0.9%) 1,000 mls @ 100 mls/hr IV .Q10H [facility] Lactic Acid (Lac-Hydrin 12% Lotion (225 G)) 0 gm EXT DAILY [facility] Last Admin: 01/17/18 10:53 Dose: 1 applic Metoprolol Tartrate (Lopressor) 12.5 mg PO BID [facility] Last Admin: 01/17/18 18:40 Dose: 12.5 mg Midodrine (Proamatine) 10 mg PO TID [facility] Last Admin: 01/17/18 18:40 Dose: 10 mg Octreotide Acetate (Sandostatin) 100 mcg SC DAILY [facility] Stop: 01/19/18 15:16 Last Admin: 01/17/18 10:53 Dose: 100 mcg Ondansetron HCl (Zofran Inj) 4 mg IVP Q4H PRN PRN Reason: Nausea/Vomiting Last Admin: 01/17/18 08:39 Dose: 4 mg Pantoprazole Sodium (Protonix Ec Tab) 40 mg PO ACB [facility] Last Admin: 01/18/18 08:04 Dose: 40 mg Potassium Chloride (Potassium Chloride Oral Soln) 20 meq PO BID [facility] Stop: 01/20/18 10:01 Last Admin: 01/17/18 18:40 Dose: 20 meq Sodium Bicarbonate (Sodium Bicarbonate Tab) 1,300 mg PO BID [facility] Last Admin: 01/17/18 18:40 Dose: 1,300 mg - Labs Labs: 01/18/18 06:20 01/18/18 06:20 PT 14.8 SECONDS (9.4-12.5) H 01/18/18 06:20 INR 1.28 (0.93-1.08) H 01/18/18 06:20 APTT 38.2 Seconds (25.1-36.5) H 01/18/18 06:20 - Constitutional Appears: Cachectic, Chronically Ill - Head Exam Head Exam: NORMAL INSPECTION - Eye Exam Eye Exam: Normal appearance, PERRL - ENT Exam ENT Exam: Mucous Membranes Moist, Normal Oropharynx - Neck Exam Neck Exam: Normal Inspection - Respiratory Exam Respiratory Exam: Decreased Breath Sounds, NORMAL BREATHING PATTERN - Cardiovascular Exam Cardiovascular Exam: REGULAR RHYTHM, +S1, +S2 - GI/Abdominal Exam GI & Abdominal Exam: Tenderness - Extremities Exam Extremities Exam: Pedal Edema - Skin Skin Exam: Dry, Pallor Assessment and Plan - Assessment and Plan (Free Text) Assessment: 62 year old male with history of cacrinoid tumor, s/p hemicolectomy, ileostomy, venting G tube who was admitted with sepsis,anemia, cachexia, PRANAV, bleeding from ileostomy. I met with patient and Francine. Extensive discussion regarding goals of care and advance care planning took place. Patient understands that his cancer is very advanced and that his condition continues to decline despite medical treatment. Gently explained that his prognosis was poor. Patients feels that he should be receiving chemotherapy. I explained that his disease is very extensive and that he is to weak and debilitated to receive chemotherapy. more accepting of illness trajectory, having hard time with processing this information. Option for hospice care presented. Hospice services explained in detail, questions answered. Reassured that hospice services will assist her at home. asking for a day or so to speak with other family members. They agreed to let me know of their decision on Tuesday. Advance care planning discussion also ensued. Benefits and burdens of CPR/ intubation explained. Questions answered. The patient states he does not want CPR/intubation. Patient made aware that he is not a candidate for permanent PEG feeding. POLST: DNR/DNI directive completed, a copy is placed in the chart. Psychosocial support provided. Time spent with patient and in goals of care and advance care planning discussion , 45 minutes Plan: Goals of care and advance care planning POLST: DNR/DNI
[2018-01-18] MEDS: Ammonium Lactate 12% Lotion (225 g) EXT SCH (09:40)
[2018-01-18] MEDS: Potassium Chloride 20 mEq/15 ml LIQ UD PO SCH ×2 (09:40→18:50)
--- NOTE | 2018-01-18 11:33 | CP.PCM.PN ---
Subjective - Date & Time of Evaluation Date of Evaluation: 01/18/18 Time of Evaluation: 07:20 - Subjective Subjective: PGY-1 Surgery progress note for Dr. Ridley Patient seen and examined. Patient complaining of chronic abdominal pain and continued intermittent blood in his ostomy bag. No new complaints endorsed. Objective - Vital Signs/Intake and Output Vital Signs (last 24 hours): Temp Pulse Resp BP Pulse Ox 98.6 F 105 H 19 132/88 100 01/18/18 08:17 01/18/18 08:17 01/18/18 08:17 01/18/18 08:17 01/18/18 08:17 Intake and Output: 01/18/18 01/18/18 06:59 18:59 Intake Total 480 Output Total 2075 Balance -1595 - Medications Medications: Current Medications Acetaminophen (Tylenol 325mg Tab) 650 mg PO Q6H PRN PRN Reason: FEVER>=99.5F Last Admin: 01/15/18 00:58 Dose: 650 mg Acetaminophen (Tylenol 650 Mg Supp) 650 mg RC Q6H PRN PRN Reason: TEMP>=99.5F Fentanyl (Duragesic) 1 patch TD Q72H [facility] Last Admin: 01/18/18 08:04 Dose: 1 patch Hydromorphone HCl (Dilaudid) 2 mg IVP Q4H PRN PRN Reason: Pain, severe (8-10) Last Admin: 01/18/18 09:41 Dose: 2 mg Cefazolin Sodium 2 gm/ Sodium (Chloride) 100 mls @ 200 mls/hr IVPB Q8 TAM[facility] PRN Reason: Protocol Last Admin: 01/18/18 05:27 Dose: 200 mls/hr Multivitamins/Vitamin C 10 ml/Insulin Human Regular 5 units / Amino Acids/ Electrolytes/Dextrose 2,010.05 mls @ 83 mls/hr IV .Q24H [facility] Last Admin: 01/18/18 00:10 Dose: 83 mls/hr Sodium Chloride (Sodium Chloride 0.9%) 1,000 mls @ 100 mls/hr IV .Q10H [facility] Lactic Acid (Lac-Hydrin 12% Lotion (225 G)) 0 gm EXT DAILY [facility] Last Admin: 01/18/18 09:40 Dose: 1 applic Metoprolol Tartrate (Lopressor) 12.5 mg PO BID [facility] Last Admin: 01/18/18 09:41 Dose: 12.5 mg Midodrine (Proamatine) 10 mg PO TID [facility] Last Admin: 01/18/18 09:40 Dose: 10 mg Octreotide Acetate (Sandostatin) 100 mcg SC DAILY [facility] Stop: 01/19/18 15:16 Last Admin: 01/18/18 10:09 Dose: 100 mcg Ondansetron HCl (Zofran Inj) 4 mg IVP Q4H PRN PRN Reason: Nausea/Vomiting Last Admin: 01/17/18 08:39 Dose: 4 mg Pantoprazole Sodium (Protonix Ec Tab) 40 mg PO ACB [facility] Last Admin: 01/18/18 08:04 Dose: 40 mg Potassium Chloride (Potassium Chloride Oral Soln) 20 meq PO BID [facility] Stop: 01/20/18 10:01 Last Admin: 01/18/18 09:40 Dose: 20 meq Sodium Bicarbonate (Sodium Bicarbonate Tab) 1,300 mg PO BID [facility] Last Admin: 01/18/18 09:40 Dose: 1,300 mg - Labs Labs: 01/18/18 06:20 01/18/18 06:20 PT 14.8 SECONDS (9.4-12.5) H 01/18/18 06:20 INR 1.28 (0.93-1.08) H 01/18/18 06:20 APTT 38.2 Seconds (25.1-36.5) H 01/18/18 06:20 - Constitutional Appears: No Acute Distress, Chronically Ill - Head Exam Head Exam: ATRAUMATIC, NORMOCEPHALIC - Eye Exam Eye Exam: EOMI, Scleral icterus - ENT Exam ENT Exam: Mucous Membranes Moist - Respiratory Exam Respiratory Exam: NORMAL BREATHING PATTERN. absent: Respiratory Distress - Cardiovascular Exam Cardiovascular Exam: +S1, +S2 - GI/Abdominal Exam GI & Abdominal Exam: Rigid, Tenderness Additional comments: G-tube in place Right sided illeostomy with dark red blood in the bag. - Extremities Exam Extremities Exam: absent: Pedal Edema - Back Exam Additional comments: Right sided nephrostomy tube in place - Neurological Exam Neurological Exam: Alert, Awake, Oriented x3 - Psychiatric Exam Psychiatric exam: Anxious - Skin Skin Exam: Dry, Warm Additional comments: Jaundice Assessment and Plan - Assessment and Plan (Free Text) Assessment: This is a 62 year old male with PMHx carcinoid tumor of the GI tract s/p colostectomy with illeostomy with dark red blood coming out of the ostomy. Plan: Illeostomy Bleeding Enteroscopy through the illeostomy performed on 01/17/18 showed bleeding in distal illeum. The scope could not be advanced very far due to obstruction. 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 No further surgical intervention per his surgical oncologist Dr. Juaquin Rose back on July 2017. Poor surgical candidate due to advanced disease process. No surgical intervention at this time. Would recommend follow up with palliative care and GI recommendations. Discussed with Dr. Khai Messina PGY-1
[2018-01-18] MEDS ORDERED: Phytonadione 10 MG in Sodium Chloride 0.9% 50 ML IV ONE (12:10)
[2018-01-18] MEDS: Sodium Chloride 0.9% 1,000 ML IV SCH (14:48)
--- NOTE | 2018-01-18 17:39 | PN ---
DATE: 01/18/2018 SUBJECTIVE: The patient is seen lying in the bed in room 575, bed 1. The patient is comfortable, awake, responsive. Overnight nurses' notes were reviewed. The patient is continued on TPN. The patient still has bleeding from the ileostomy. OBJECTIVE: VITAL SIGNS: T-max 99; heart rate 75, 101,102,105; blood pressure 132/88; respirations 18-19; O2 sat 100%. HEENT: Head examination, normocephalic and atraumatic. HEENT examination shows pinkish pale conjunctivae, icteric sclerae. No audible carotid bruit. CHEST: Examination, kyphosis. Positive right upper chest Port-A-Cath. LUNGS: Examination shows occasional rhonchi. CARDIOVASCULAR: S1, S2. Regular rhythm. Positive systolic murmur, left sternal border, right second intercostal space, left second intercostal space. ABDOMEN: Soft, positive ileostomy. Positive bleeding noted in the ostomy bag. Positive gastrostomy, positive right percutaneous nephrostomy. GENITALIA: Male. RECTAL: Examination is deferred. EXTREMITIES: Shows no pitting edema, no calf tenderness, no Luis A sign. NEUROLOGIC: The patient is alert, awake, responsive. The patient is able to move upper and lower extremities without assistance. Gait examination is not tested. VASCULAR: Examination, palpable pulses. DIAGNOSTIC DATA: 01/18, WBC count is down to 14.8, hemoglobin/hematocrit 9.4 and 28.2, platelets 265. Granulocytes 78% segs. PT/PTT is down to 14.8 and 38.2 from 15.8. Sodium 147, potassium 3.7, chloride 115, CO2 23, anion gap 13, BUN 30, creatinine 1, GFR greater than 60, glucose 125 and 176, hemoglobin A1c 6.1, total bili is up to 87, direct bili is 7.6, AST 79, alkaline phosphatase 581, albumin 2.4. Repeat blood and urine cultures negative. The patient has been receiving 4 units of PRBC. The patient had a push enteroscopy done, which shows red blood was seen in distal ileum, small bowel matted with tumor. IMPRESSION AND PLAN: 1. Status post esophagogastroduodenoscopy and push enteroscopy through ileostomy. 2. Low-grade fever. 3. Tachycardia. 4. Hypotension. 5. Possible septic shock. 6. Severe sepsis with multiple organ dysfunction syndrome. 7. Klebsiella pneumoniae bacteremia. 8. Funguria. 9. Distal ileal bleeding secondary to advanced gastrointestinal carcinoid and small bowel matting. 10. Obstructive jaundice and hyperbilirubinemia. 11. Persistent refractory leukocytosis. 12. Normocytic anemia, status post packed red blood cell transfusion x4. 13. Granulocytosis. 14. Bandemia. 15. Elevated erythrocyte sedimentation rate of greater than 122. 16. Mild coagulopathy. 17. Increased anion gap metabolic acidosis and lactic acidosis. 18. Acute kidney injury (resolved. 19. Prerenal kidney injury. 20. Prediabetes with hemoglobin A1c of 6.5. 21. Hypokalemia. 22. Severe transaminitis. 23. Lactic acidosis. 24. High-normal hyperuricemia, possible relative hyperuricemia. 25. Hyperprolactinemia. 26. Glycosuria, hematuria, pyuria, bacteriuria. 27. Severe deconditioning. 28. Gait dysfunction. 29. 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 Narcotic-dependent pain syndrome of malignancy. 31. Small bilateral pleural effusion, left more than the right. 32. Bibasilar atelectasis, left more than the right. 33. Gastroesophageal reflux with distal esophageal fluid. 34. Nonvisualized gallbladder. 35. Fatty atrophic pancreas. 36. Nonvisualized pain. 37. Right percutaneous nephrostomy. 38. Incomplete urinary bladder distention with urinary bladder muscular hypertrophy, possibly cystitis. 39. Gastrostomy. 40. Gastric distention. 41. Status post colectomy. 42. Appendectomy. 43. Left lower quadrant ileostomy with rectosigmoid stump in the pelvis. 44. Ill-defined small bowel matted mass within the mid abdomen with amorphous appearance and thickened wall suggestive of metastasis within the mesentery with secondary adherence of the multiple small bowel loop. 45. retroperitoneal and upper abdominal lymphadenopathy. 46. Degenerative joint disease and spondylosis of the thoracic and lumbar spine. 47. Anasarca with left gluteal lipoma. PLAN: At this time, the patient is seen by Maria Fernanda Marinelli. The patient and the family had a long discussion today with Loyda Marinelli. Palliative Care was discussed. The patient and the patient's and family was told about the patient's advanced cancer. The patient stated he does not want CPR intubation. The patient is DNR/DNI POLST directive was completed. The patient is now made a DNR/DNI. The plan is the patient will have repeat serial labs. Current consultation will be continued. The patient is on broad-spectrum IV. The patient is on Ancef 2 g IV every 8 hours, Clinimix an hour, Dilaudid 2 mg IV every 4 hours. The patient is started on Duragesic patch 25 mcg every 72 hours, Lac-Hydrin lotion to the both feet, Lopressor 12.5 twice a day, K-Dur 20 mEq b.i.d. by Nephrology, midodrine 10 mg three times a day, Protonix 40 mg daily, Sandostatin 100 mcg subcu daily, sodium bicarbonate 1300 mg twice a day, IV fluid 0.9 normal saline at 100 mL an hour, Tylenol p.r.n. The patient was given a dose of vitamin K yesterday, Zofran 4 mg IV every 4 hours p.r.n. Chest PT and out of bed ordered. We will try to give another dose of vitamin K IV to reverse mild coagulopathy, which the patient still has.. The patient's overall prognosis is extremely guarded to extremely poor, which the patient has been extensively explained on almost on a daily basis. Hospice care was discussed by palliative care nurse. No decision was made by the family and the patient. Dictated and electronically signed, not read. Sergio Wagner MD
[2018-01-18] MEDS ORDERED: Fat Emulsion 20% IV 250 ML IV SCH (18:00)
--- NOTE | 2018-01-19 02:12 | PN ---
DATE: 01/18/2018 SUBJECTIVE: The patient was seen in room 575, bed 1. PHYSICAL EXAMINATION: VITAL SIGNS: Temperature is 98, blood pressure is 120/70, respiratory rate of 20, heart rate of 114. HEENT: Unremarkable. NECK: Supple. LUNGS: Have decreased breath sounds. HEART: Normal S1 and S2. ABDOMEN: Soft, nontender. LABORATORY DATA: Reveals white count is down to 14,800, hemoglobin of 9, platelets of 265. BUN of 30, creatinine of 1. Urinalysis is noted. Serology is noted. Hepatitis C is negative. Hepatitis A is negative. Hepatitis B is negative. Microbiology: Revealed the patient had Klebsiella pneumoniae from 01/08/2018 in the blood cultures, also had yeast in the urine. Repeat blood cultures are negative. The patient is on cefazolin. The Klebsiella pneumoniae in the blood is pansensitive. Dr. Wagner's note is reviewed. The patient had endoscopy with push enteroscopy. ASSESSMENT AND PLAN: This is a 62-year-old male, with severe sepsis, [id number] renal failure, Klebsiella bacteremia secondary from the PICC line related infection, status post removal, status post replacement of nephrostomy tube, patient has a right internal jugular vein, currently on cefazolin, day #9, would complete at least 14 days. Andrew Ye MD
[2018-01-19] MEDS: HYDROmorphone 2 mg/ml ISec IVP PRN ×5 (03:04→21:59)
[2018-01-19] MEDS: Sodium Chloride 0.9% 1,000 ML IV SCH ×2 (03:11→20:04)
[2018-01-19] MEDS: ceFAZolin 2 GM in Sodium Chloride 0.9% 100 ML IVPB SCH ×3 (06:58→21:59)
[2018-01-19 07:45] LABS: BASO # 0.03 K/mm3 (0.0-2.0); BASO % 0.2 % (0.0-3.0); EOS # 0.5 (0.0-0.7); EOS % 2.9 % (1.5-5.0); GRAN # 12.51 (1.4-6.5); GRAN % 76.3 % (50.0-68.0); HEMOGLOBIN 9.3 g/dL (14.0-18.0); LYMPH # 2.1 (1.2-3.4); LYMPH % 12.9 % (22.0-35.0); MEAN CELL VOLUME 86.7 fl (80.0-105.0); MEAN CORPUSCULAR HEMOGLOBIN 28.8 pg (25.0-35.0); MEAN CORPUSCULAR HGB CONC 33.2 g/dl (31.0-37.0); MEAN PLATELET VOLUME 11.6 fl (7.0-11.0); MONO # 1.3 (0.1-0.6); MONO % 7.7 % (1.0-6.0); RBC 3.23 10^6/uL (3.5-6.1); RED CELL DISTRIBUTION WIDTH 16.7 % (11.5-14.5); WHITE BLOOD COUNT 16.4 10^3/ul (4.5-11.0)
[2018-01-19 08:02] LABS: ALB/GLOB RATIO 0.6 (1.1-1.8); ALBUMIN 2.5 g/dL (3.0-4.8); ALT/SGPT 22 U/L (7-56); AST/SGOT 85 U/L (17-59); BILIRUBIN,DIRECT 7.6 mg/dL (0.0-0.4); BLOOD UREA NITROGEN 29 mg/dL (7-21); CALCIUM 9.5 mg/dL (8.4-10.5); GFR AFRICAN-AMERICAN > 60; GFR NON-AFRICAN AMERICAN > 60
--- NOTE | 2018-01-19 09:49 | CP.PCM.PN ---
Subjective - Date & Time of Evaluation Date of Evaluation: 01/19/18 Time of Evaluation: 06:00 - Subjective Subjective: Patient seen and evaluated bedside. No acute issues overnight. Patient complaining of generalized pain especially in abdomen. denies chest pain, shortness of breath, fever, chills or any other complaints at this time. Objective - Vital Signs/Intake and Output Vital Signs (last 24 hours): Temp Pulse Resp BP Pulse Ox 99 F 113 H 20 129/78 97 01/19/18 06:00 01/19/18 06:00 01/19/18 06:00 01/19/18 06:00 01/19/18 06:00 Intake and Output: 01/19/18 01/19/18 06:59 18:59 Intake Total 660 Output Total 200 Balance 460 - Medications Medications: Current Medications Acetaminophen (Tylenol 325mg Tab) 650 mg PO Q6H PRN PRN Reason: FEVER>=99.5F Last Admin: 01/15/18 00:58 Dose: 650 mg Acetaminophen (Tylenol 650 Mg Supp) 650 mg RC Q6H PRN PRN Reason: TEMP>=99.5F Fentanyl (Duragesic) 1 patch TD Q72H [facility] Last Admin: 01/18/18 08:04 Dose: 1 patch Hydromorphone HCl (Dilaudid) 2 mg IVP Q4H PRN PRN Reason: Pain, severe (8-10) Last Admin: 01/19/18 06:58 Dose: 2 mg Cefazolin Sodium 2 gm/ Sodium (Chloride) 100 mls @ 200 mls/hr IVPB Q8 [facility] PRN Reason: Protocol Last Admin: 01/19/18 06:58 Dose: 200 mls/hr Sodium Chloride (Sodium Chloride 0.9%) 1,000 mls @ 100 mls/hr IV .Q10H [facility] Last Admin: 01/19/18 03:11 Dose: 100 mls/hr Potassium Chloride (Potassium Chloride 20 Meq/100 Ml) 20 meq in 100 mls @ 50 mls/hr IVPB Q2H [facility] Stop: 01/19/18 12:44 Lactic Acid (Lac-Hydrin 12% Lotion (225 G)) 0 gm EXT DAILY [facility] Last Admin: 01/18/18 09:40 Dose: 1 applic Metoprolol Tartrate (Lopressor) 12.5 mg PO BID [facility] Last Admin: 01/18/18 18:50 Dose: 12.5 mg Midodrine (Proamatine) 10 mg PO TID [facility] Last Admin: 01/18/18 18:50 Dose: 10 mg Octreotide Acetate (Sandostatin) 100 mcg SC DAILY [facility] Stop: 01/19/18 15:16 Last Admin: 01/18/18 10:09 Dose: 100 mcg Ondansetron HCl (Zofran Inj) 4 mg IVP Q4H PRN PRN Reason: Nausea/Vomiting Last Admin: 01/19/18 07:09 Dose: 4 mg Pantoprazole Sodium (Protonix Ec Tab) 40 mg PO ACB [facility] Last Admin: 01/18/18 08:04 Dose: 40 mg Potassium Chloride (Potassium Chloride Oral Soln) 20 meq PO BID [facility] Stop: 01/20/18 10:01 Last Admin: 01/18/18 18:50 Dose: 20 meq Sodium Bicarbonate (Sodium Bicarbonate Tab) 1,300 mg PO BID [facility] Last Admin: 01/18/18 18:50 Dose: 1,300 mg - Labs Labs: 01/19/18 07:32 01/19/18 07:32 PT 14.8 SECONDS (9.4-12.5) H 01/18/18 06:20 INR 1.28 (0.93-1.08) H 01/18/18 06:20 APTT 38.2 Seconds (25.1-36.5) H 01/18/18 06:20 - Constitutional Appears: Toxic, No Acute Distress, Chronically Ill - Head Exam Head Exam: NORMAL INSPECTION, NORMOCEPHALIC - Eye Exam Eye Exam: Normal appearance, Scleral icterus - ENT Exam ENT Exam: Mucous Membranes Moist - Respiratory Exam Respiratory Exam: Clear to Ausculation Bilateral, NORMAL BREATHING PATTERN - Cardiovascular Exam Cardiovascular Exam: Tachycardia - GI/Abdominal Exam GI & Abdominal Exam: Soft Additional comments: ileostomy in place - Extremities Exam Extremities Exam: absent: Pedal Edema, Tenderness - Neurological Exam Neurological Exam: Alert, Awake, Oriented x3 - Skin Additional comments: jaundiced Assessment and Plan - Assessment and Plan (Free Text) Assessment: 62 year old male with PMHx of carcinoid tumor diagnosed 4 years ago s/p colectomy, ileostomy, right sided nephrostomy tube, recently discharged from the hospital for sepsis from pyelonephritis/cystitis, PEG tube with chronic bowel obstruction and PICC line on TPN, presented to the hospital for near syncope. Patient is being treated for sepsis, PRANAV, elevated liver function and bleeding form ileostomy site. Plan: 1. Sepsis -afebrile -leukocytosis -ID consulted -cefazolin day 10 -intial Blood cultures showing gram negative rods, repeat showing no growth currently -likely secondary from PICC line, which was removed -tachycardic 2. Anemia -status post 4 units PRBC -continue to monitor 3. Elevated Liver Enzymes and Elevated Bilirubin -continue to trend -CT abdomen/pelvis: no acute intrabdominal findings -GI Olivo consulted, follow recs -octreotide 4. Carcinoid Tumor-chronic -palliative care consult -pain medications -right chemo cath -TPN -Heme consulted, riaz, follow recs 5. PRANAV -nephro consulted, Oumar, follow recs -continue fluids -sodium bicarb 6. Hypotension-chronic -continue to monitor -continue home meds 7. Bleeding From ileostomy -GI consulted, Pallavi, follow recs -hold heparin -enteroscopy showing bleeding but no luminal mass 8. Hypokalemia -K 3.5 -repleted -continue to monitor 9. Vomiting -Zofran PRN -Reglan PPX: GI: protonix DVT: heparin SC on hold DNR/DNI Patient seen and discussed with attending Dr. Wagner
[2018-01-19] MEDS: Potassium Chloride 20 mEq/15 ml LIQ UD PO SCH (10:04)
[2018-01-19] MEDS: Pantoprazole 40 mg EC Tab PO SCH (10:07)
[2018-01-19] MEDS: Ammonium Lactate 12% Lotion (225 g) EXT SCH (10:08)
--- NOTE | 2018-01-19 10:23 | CP.PCM.PN ---
Subjective - Date & Time of Evaluation Date of Evaluation: 01/19/18 Time of Evaluation: 09:00 - Subjective Subjective: Nausea, vomited dark brown fluid Objective - Vital Signs/Intake and Output Vital Signs (last 24 hours): Temp Pulse Resp BP Pulse Ox 99 F 50 L 20 132/58 L 97 01/19/18 06:00 01/19/18 10:05 01/19/18 06:00 01/19/18 10:05 01/19/18 06:00 Intake and Output: 01/19/18 01/19/18 06:59 18:59 Intake Total 660 Output Total 200 Balance 460 - Medications Medications: Current Medications Acetaminophen (Tylenol 325mg Tab) 650 mg PO Q6H PRN PRN Reason: FEVER>=99.5F Last Admin: 01/15/18 00:58 Dose: 650 mg Acetaminophen (Tylenol 650 Mg Supp) 650 mg RC Q6H PRN PRN Reason: TEMP>=99.5F Fentanyl (Duragesic) 1 patch TD Q72H [facility] Last Admin: 01/18/18 08:04 Dose: 1 patch Hydromorphone HCl (Dilaudid) 2 mg IVP Q4H PRN PRN Reason: Pain, severe (8-10) Last Admin: 01/19/18 10:04 Dose: 2 mg Cefazolin Sodium 2 gm/ Sodium (Chloride) 100 mls @ 200 mls/hr IVPB Q8 TAMMY PRN Reason: Protocol Last Admin: 01/19/18 06:58 Dose: 200 mls/hr Sodium Chloride (Sodium Chloride 0.9%) 1,000 mls @ 100 mls/hr IV .Q10H [facility] Last Admin: 01/19/18 03:11 Dose: 100 mls/hr Potassium Chloride (Potassium Chloride 20 Meq/100 Ml) 20 meq in 100 mls @ 50 mls/hr IVPB Q2H [facility] Stop: 01/19/18 12:44 Last Admin: 01/19/18 09:59 Dose: 50 mls/hr Lactic Acid (Lac-Hydrin 12% Lotion (225 G)) 0 gm EXT DAILY [facility] Last Admin: 01/19/18 10:08 Dose: 1 applic Metoprolol Tartrate (Lopressor) 12.5 mg PO BID [facility] Last Admin: 01/19/18 10:05 Dose: 12.5 mg Midodrine (Proamatine) 10 mg PO TID [facility] Last Admin: 01/19/18 10:07 Dose: 10 mg Octreotide Acetate (Sandostatin) 100 mcg SC DAILY [facility] Stop: 01/19/18 15:16 Last Admin: 01/18/18 10:09 Dose: 100 mcg Ondansetron HCl (Zofran Inj) 4 mg IVP Q4H PRN PRN Reason: Nausea/Vomiting Last Admin: 01/19/18 07:09 Dose: 4 mg Pantoprazole Sodium (Protonix Ec Tab) 40 mg PO ACB [facility] Last Admin: 01/19/18 10:07 Dose: 40 mg Potassium Chloride (Potassium Chloride Oral Soln) 20 meq PO BID [facility] Stop: 01/20/18 10:01 Last Admin: 01/19/18 10:04 Dose: 20 meq Sodium Bicarbonate (Sodium Bicarbonate Tab) 1,300 mg PO BID [facility] Last Admin: 01/19/18 10:07 Dose: 1,300 mg - Labs Labs: 01/19/18 07:32 01/19/18 07:32 PT 14.8 SECONDS (9.4-12.5) H 01/18/18 06:20 INR 1.28 (0.93-1.08) H 01/18/18 06:20 APTT 38.2 Seconds (25.1-36.5) H 01/18/18 06:20 - Constitutional Appears: Cachectic, Chronically Ill - Head Exam Head Exam: NORMAL INSPECTION - Eye Exam Eye Exam: PERRL, Scleral icterus - ENT Exam ENT Exam: Mucous Membranes Moist - Respiratory Exam Respiratory Exam: Decreased Breath Sounds, NORMAL BREATHING PATTERN - Cardiovascular Exam Cardiovascular Exam: REGULAR RHYTHM, +S1, +S2 - GI/Abdominal Exam GI & Abdominal Exam: Soft, Tenderness Additional comments: ileostomy draining dark bloody stool, venting G tube draining dark green fluid - Extremities Exam Extremities Exam: Pedal Edema - Neurological Exam Neurological Exam: Alert - Skin Skin Exam: Dry Additional comments: jaundice Assessment and Plan - Assessment and Plan (Free Text) Assessment: 62 year old male with history of carcinoid cancer with extensive metastatic disease who is admitted with sepsis,pneumonia, cachexia, nausea vomiting and intractable pain. Complains of persistent abdominal pain. Vomited dark brown emisis. Lethargy. Offered opportunity to be evaluated for in patient hospice care. Explained that he would qualify due to pain and symptom management needs. Explained that these symptoms could be treated here under hospice care. Patient remains indecisive. Reassured that intent is to provide him with aggressive symptom management and psychosocial support. Goals of care, 20 minutes Plan: Goals of care and advance care planning Pain: Currently Fentanyl 25 mcg transdermal, Dilaudid 2 mg IV as needed for breakthrough. Would consider discontinuing and transitioning to continuous Dilaudid [employer]NAGER. Nausea/vomiting: Would add Reglan 5 mg IV twice daily scheduled dosing, continue Zofran PRN
[2018-01-19] MEDS ORDERED: HYDROmorphone 2 mg/ml ISec IVP STA (10:49)
--- NOTE | 2018-01-19 16:29 | PN ---
DATE: 01/19/2018 SUBJECTIVE: The patient was seen earlier this morning. The patient is in no acute distress, nontoxic, had an uneventful night. No fevers and chills. No nausea. PHYSICAL EXAMINATION: VITAL SIGNS: Temperature is 98, blood pressure is 130/80, respiratory rate of 20, heart rate of 104. HEENT: Examination of HEENT is unremarkable. NECK: Supple. LUNGS: Have decreased breath sounds. HEART: Normal S1, S2. ABDOMEN: Soft, nontender. LABORATORY DATA: Laboratory examination reveals a white count of 16,400, hemoglobin of 9. Chemistries reveals a BUN of 29, creatinine of 0.9 and procalcitonin is 13.7 and urinalysis is noted and serology is negative. Microbiology reveals negative. Loyda Marinelli's note is reviewed. ASSESSMENT AND PLAN: A 62-year-old male who was seen earlier today in 575, bed 1 with severe sepsis, [id number] renal failure, Klebsiella bacteremia secondary from the peripherally inserted central catheter line related infection, status post removal, status post replacement of nephrostomy tube and day #10 of cefazolin, would complete 14 days. Review of orders confirms the cefazolin to be active. Review of microbiology is noted. We will follow with you. Andrew Ye MD
--- NOTE | 2018-01-19 16:58 | CP.PCM.CON ---
History of Present Illness - History of Present Illness History of Present Illness: 62 year old male with a history of stage IV carcinoid tumor diagnosed 4 years ago s/p colectomy, ileostomy, right sided nephrostomy tube, on systemic therapy , admitted with near syncope, sepsis from bacteremia, bleeding ileostomy. He has a PEG tube with chronic bowel obstruction and is on TPN. He notes to intermittent chemotherapy and monthly Sandostatin LAR injections in [place]. He has persistant nausea and vomiting which is worsening. He notes to improvement since coming to the hospital but is worried his cancer has worsened. 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 Allergies: Morphine Review of systems: All remaining review of systems including HEENT, cardiovascular, respiratory, gastrointestinal, genitourinary, musculoskeletal, dermatologic, neurologic, and psychiatric are negative unless mentioned in the HPI. Past Patient History - Infectious Disease Hx of Infectious Diseases: None - Tetanus Immunizations Tetanus Immunization: Unknown - Past Social History Smoking Status: Never Smoked - CARDIAC Hx Cardiac Disorders: No - PULMONARY Hx Respiratory Disorders: No - NEUROLOGICAL Hx Neurological Disorder: No - HEENT Hx HEENT Problems: No - RENAL Hx Chronic Kidney Disease: Yes Other/Comment: HAS UROSTOMY - ENDOCRINE/METABOLIC Hx Endocrine Disorders: No - HEMATOLOGICAL/ONCOLOGICAL Hx Blood Transfusions: Yes Hx Blood Transfusion Reaction: No - INTEGUMENTARY Hx Dermatological Problems: No - MUSCULOSKELETAL/RHEUMATOLOGICAL Hx Falls: Yes - GASTROINTESTINAL Hx Gastrointestinal Disorders: Yes Hx Ileostomy: Yes Other/Comment: L colostomy. G tube - GENITOURINARY/GYNECOLOGICAL Hx Genitourinary Disorders: Yes Other/Comment: HAS UROSTOMY - PSYCHIATRIC Hx Psychophysiologic Disorder: No - SURGICAL HISTORY Hx Surgeries: Yes - ANESTHESIA Hx Anesthesia Reactions: No Hx Malignant Hyperthermia: No Meds Allergies/Adverse Reactions: Allergies Allergy/AdvReac Type Severity Reaction Status Date / Time morphine Allergy ANAPHYLAXIS Verified 12/08/17 19:18 - Medications Medications: Current Medications Acetaminophen (Tylenol 325mg Tab) 650 mg PO Q6H PRN PRN Reason: FEVER>=99.5F Last Admin: 01/15/18 00:58 Dose: 650 mg Acetaminophen (Tylenol 650 Mg Supp) 650 mg RC Q6H PRN PRN Reason: TEMP>=99.5F Fentanyl (Duragesic) 1 patch TD Q72H [facility] Last Admin: 01/19/18 13:36 Dose: 1 patch Hydromorphone HCl (Dilaudid) 2 mg IVP Q4H PRN PRN Reason: Pain, severe (8-10) Last Admin: 01/19/18 10:04 Dose: 2 mg Cefazolin Sodium 2 gm/ Sodium (Chloride) 100 mls @ 200 mls/hr IVPB Q8 TAMMY PRN Reason: Protocol Last Admin: 01/19/18 06:58 Dose: 200 mls/hr Sodium Chloride (Sodium Chloride 0.9%) 1,000 mls @ 100 mls/hr IV .Q10H [facility] Last Admin: 01/19/18 03:11 Dose: 100 mls/hr Multivitamins/Vitamin C 10 ml/Insulin Human Regular 5 units / Amino Acids/ Electrolytes/Dextrose 2,010.05 mls @ 83 mls/hr IV .Q24H [facility] Stop: 01/22/18 18:01 Lactic Acid (Lac-Hydrin 12% Lotion (225 G)) 0 gm EXT DAILY [facility] Last Admin: 01/19/18 10:08 Dose: 1 applic Metoclopramide HCl (Reglan) 5 mg IVP Q6H [facility] Last Admin: 01/19/18 13:33 Dose: 5 mg Metoprolol Tartrate (Lopressor) 12.5 mg PO BID [facility] Last Admin: 01/19/18 10:05 Dose: 12.5 mg Midodrine (Proamatine) 10 mg PO TID [facility] Last Admin: 01/19/18 13:26 Dose: 10 mg Ondansetron HCl (Zofran Inj) 4 mg IVP Q4H PRN PRN Reason: Nausea/Vomiting Last Admin: 01/19/18 07:09 Dose: 4 mg Pantoprazole Sodium (Protonix Ec Tab) 40 mg PO ACB [facility] Last Admin: 01/19/18 10:07 Dose: 40 mg Potassium Chloride (Potassium Chloride Oral Soln) 20 meq PO BID [facility] Stop: 01/20/18 10:01 Last Admin: 01/19/18 10:04 Dose: 20 meq Sodium Bicarbonate (Sodium Bicarbonate Tab) 1,300 mg PO BID [facility] Last Admin: 01/19/18 10:07 Dose: 1,300 mg Physical Exam - Head Exam Head Exam: ATRAUMATIC - Eye Exam Eye Exam: Normal appearance - ENT Exam ENT Exam: Mucous Membranes Dry - Respiratory Exam Respiratory Exam: NORMAL BREATHING PATTERN - Cardiovascular Exam Cardiovascular Exam: +S1, +S2 - GI/Abdominal Exam GI & Abdominal Exam: Normal Bowel Sounds - Neurological Exam Neurological exam: Oriented x3 - Psychiatric Exam Psychiatric exam: Normal Affect, Normal Mood - Skin Skin Exam: Warm Results - Vital Signs Recent Vital Signs: Last Vital Signs Temp 98.3 F 01/19/18 14:00 Pulse 106 H 01/19/18 14:00 Resp 22 01/19/18 14:00 BP 131/95 H 01/19/18 14:00 Pulse Ox 100 01/19/18 14:00 - Labs Result Diagrams: 01/19/18 07:32 01/19/18 07:32 Labs: Laboratory Results - last 24 hr 01/18/18 01/19/18 01/19/18 21:42 06:55 07:32 WBC RBC Hgb Hct MCV MCH MCHC RDW Plt Count MPV Gran % Lymph % (Auto) [place] % (Auto) Eos % (Auto) Baso % (Auto) Gran # Lymph # (Auto) [place] # (Auto) Eos # (Auto) Baso # (Auto) Sodium 146 Potassium 3.5 L Chloride 114 H Carbon Dioxide 23 Anion Gap 13 BUN 29 H Creatinine 0.9 Est GFR ( Amer) > 60 Est GFR (Non-Af Amer) > 60 POC Glucose (mg/dL) 156 H 161 H Random Glucose 138 H Calcium 9.5 Magnesium 2.0 Total Bilirubin 8.7 H Direct Bilirubin 7.6 H AST 85 H ALT 22 Alkaline Phosphatase 599 H Total Protein 6.5 Albumin 2.5 L Globulin 4.0 Albumin/Globulin Ratio 0.6 L 01/19/18 01/19/18 01/19/18 07:32 11:07 16:07 WBC 16.4 H RBC 3.23 L Hgb 9.3 L Hct 28.0 L MCV 86.7 MCH 28.8 MCHC 33.2 RDW 16.7 H Plt Count 368 MPV 11.6 H Gran % 76.3 H Lymph % (Auto) 12.9 L [place] % (Auto) 7.7 H Eos % (Auto) 2.9 Baso % (Auto) 0.2 Gran # 12.51 H Lymph # (Auto) 2.1 [place] # (Auto) 1.3 H Eos # (Auto) 0.5 Baso # (Auto) 0.03 Sodium Potassium Chloride Carbon Dioxide Anion Gap BUN Creatinine Est GFR ( Amer) Est GFR (Non-Af Amer) POC Glucose (mg/dL) 165 H 164 H Random Glucose Calcium Magnesium Total Bilirubin Direct Bilirubin AST ALT Alkaline Phosphatase Total Protein Albumin Globulin Albumin/Globulin Ratio Assessment & Plan (1) Carcinoid tumor Assessment and Plan: stage IV lymph node and peritoneal metastasis complicated by bowel obstruction with worsening N/V likely from progressing malignancy will check tumor marker chromogranin A palliative care f/u DNR/DNI Status: Acute (2) Leukocytosis Assessment and Plan: on antibiotics may have reactive component from malignancy Status: Acute (3) Anemia Assessment and Plan: anemia of chronic disease from malignancy intermittent ostomy bleeding transfusion support PRN Status: Acute (4) Coagulopathy Assessment and Plan: nutritional Thank you for this interesting consult. Status: Acute
--- NOTE | 2018-01-19 18:57 | PN ---
DATE: 01/19/2018 SUBJECTIVE: The patient was seen in room 575, bed 1. The patient is having episodes of nausea and vomiting with bilious vomiting. The patient's ileostomy continues to drain bloody drainage. The patient continues to have abdominal pain. Overnight nurse's notes were reviewed. The patient was found to be alert, awake, oriented x3. TPN was continued. PEG tube was connected to the Cardona bag, drainage greenish brown fluid. The patient is complaining of nausea and vomiting. PHYSICAL EXAMINATION: VITAL SIGNS: T-max 99; pulse 106, 113, 104; blood pressure 131/95, 132/58, 129/78; respirations 22; O2 sat 100%. HEENT: Head examination normocephalic, atraumatic. HEENT examination shows pinkish pale subconjunctivae. Icteric sclerae. No oropharyngeal lesion. No neck rigidity. CHEST: Kyphosis. Positive right upper chest Port-A-Cath. Positive ecchymosis noted around the Port-A-Cath. LUNGS: Shows no rales, crackles or wheezing. Decreased breath sound at the bases. Left more than the right. CARDIOVASCULAR: S1, S2. Regular rhythm. Questionable systolic murmur, left sternal border, right second intercostal space, left second intercostal space. ABDOMEN: Examination shows ileostomy with bleeding and dark blood, positive gastrostomy connected to Cardona bag. Next, the patient is complaining of bilious vomiting. GENITALIA: Male. RECTAL: Deferred. EXTREMITY: Shows no pitting edema, no calf tenderness, no Homans' sign. NEUROLOGICAL: The patient is alert, awake, responsive. DIAGNOSTICS: ON 01/19/2018, WBC count 16.4, hemoglobin and hematocrit 9.3 and 28, platelet 368, granulocytes 76. Sodium is 146, potassium is 3.5, chloride 114, CO2 of 23, anion gap 13, BUN 29, creatinine 0.9, GFR greater than 60, glucose 138, calcium 9.5, total bili is still high at 8.7, direct bili is 7.6. AST is 85, alk phos is 599, albumin 2.5. Blood and urine cultures are negative. The patient has received transfusion of 4 units of PRBC. The patient was seen by palliative care nurse. The patient was seen by Infectious Disease. The patient was seen by Hematology/Oncology. The patient was seen by infectious disease, Dr. Ye. IMPRESSION AND PLAN 1. Status post septic shock with hypotension, tachycardia. 2. Severe sepsis with multiple organ dysfunction syndrome. 3. Acute on chronic renal failure and kidney injury. 4. Klebsiella pneumoniae bacteremia and sepsis. 5. Klebsiella pneumoniae bacteremia and sepsis secondary to left upper extremity peripherally inserted central catheter line placement. 6. Status post removal of preexisting right upper chest Port-A-Cath and placement of the new right upper chest Port-A-Cath placement. 7. Status post left upper extremity peripherally inserted central catheter line removal. 8. Tachycardia. 9. Status post hypotension. 10. Leukocytosis with granulocytosis. 11. Normocytic anemia. 12. Bandemia. 13. Elevated erythrocyte sedimentation rate of 122. 14. Mild coagulopathy. 15. Lactic acidosis. 16. Hypokalemia. 17. Acute kidney injury with prerenal kidney injury. 18. Hyperglycemia. 19. Prediabetes with hemoglobin A1c of 6.1. 20. Lactic acidosis. 21. Hyperbilirubinemia with transaminitis. 22. Mild hypoalbuminemia with malnutrition. 23. Hyperprocalcitoninemia. 24. Elevated C-reactive protein of greater than 15. 25. Funguria with proteinuria, glycosuria, microscopic hematuria, bilirubinuria, pyuria, bacteriuria., 26. Gait dysfunction. 27. Deconditioning. 28. Narcotic-dependent pain syndrome of malignancy. 29. Cachexia of malignancy. 30. Obstructive jaundice. 31. Advanced metastatic carcinoid tumor. 32. Status post colectomy. 33. Status post ileostomy. 34. Status post gastrostomy. 35. Status post right percutaneous nephrostomy. 36. Chronic hyperalimentation dependent, chronic bowel obstruction. 37. Anemia. 38. Ileostomy bleeding. 39. Status post EGD and push enteroscopy through ileostomy. 40. Distal ileal bleeding with matted tumor of the small bowel. 41. Painful onychomycosis bilaterally. 42. Advanced metastatic carcinoid tumor of the gastrointestinal tract with metastasis to the local lymph nodes. 43. Status post gastrostomy tube placement. Plan at this time, the patient's family is trying to work with palliative care nurse for possible hospice. The patient is a DNR/DNI. The patient is on Ancef 2 g IV every 8. The patient is on Clinimix 83 ml an hour, Dilaudid 2 mg IV every 4 p.r.n. The patient's Duragesic patch is increased to 50 mcg every 3 days for increasing abdominal pain. The patient is on Lac-Hydrin lotion, Lopressor 12.5 twice a day, K-Dur, potassium chloride 20 mEq twice a day, ProAmatine 10 mg three times a day, Protonix 40 mg daily. The patient is started on Reglan 5 mg IV every 6 hours for nausea and vomiting. The patient is on sodium bicarb 1300 mg twice a day, IV fluid 0.9 normal saline at 100 mL an hour, Tylenol p.r.n. Zofran 4 mg IV every 4 p.r.n. The patient has been ordered SCDs, , occupational therapy, physical therapy ordered. The patient was seen by physical therapy. The patient has been declining physical therapy. Despite physical therapy, multiple attempts, the patient has been declining out of bed to chair. The patient has been lying in the bed. The patient's overall prognosis is poorer and overall medical condition declining and decompensated. Dictated and electronically signed, not read. Sergio Wagner MD
[2018-01-20] MEDS: HYDROmorphone 2 mg/ml ISec IVP PRN ×6 (02:09→23:05)
[2018-01-20] MEDS: ceFAZolin 2 GM in Sodium Chloride 0.9% 100 ML IVPB SCH ×3 (05:37→22:57)
[2018-01-20 07:38] LABS: BASO # 0.03 K/mm3 (0.0-2.0); BASO % 0.2 % (0.0-3.0); EOS # 0.5 (0.0-0.7); EOS % 3.6 % (1.5-5.0); GRAN # 10.5 (1.4-6.5); GRAN % 73.7 % (50.0-68.0); HEMOGLOBIN 8.4 g/dL (14.0-18.0); MEAN CELL VOLUME 87.6 fl (80.0-105.0); MEAN CORPUSCULAR HEMOGLOBIN 28.1 pg (25.0-35.0); MEAN CORPUSCULAR HGB CONC 32.1 g/dl (31.0-37.0); MEAN PLATELET VOLUME 11.7 fl (7.0-11.0); MONO # 1.2 (0.1-0.6); MONO % 8.5 % (1.0-6.0); RBC 2.99 10^6/uL (3.5-6.1); RED CELL DISTRIBUTION WIDTH 16.5 % (11.5-14.5); WHITE BLOOD COUNT 14.3 10^3/ul (4.5-11.0)
[2018-01-20 07:49] LABS: ALB/GLOB RATIO 0.6 (1.1-1.8); ALBUMIN 2.3 g/dL (3.0-4.8); ALT/SGPT 25 U/L (7-56); AST/SGOT 73 U/L (17-59); BILIRUBIN,DIRECT 7.1 mg/dL (0.0-0.4); BLOOD UREA NITROGEN 30 mg/dL (7-21); CALCIUM 9.4 mg/dL (8.4-10.5); GFR AFRICAN-AMERICAN > 60; GFR NON-AFRICAN AMERICAN > 60
[2018-01-20] MEDS: Potassium Chloride 20 mEq/15 ml LIQ UD PO SCH (09:20)
[2018-01-20] MEDS: Pantoprazole 40 mg EC Tab PO SCH (09:21)
[2018-01-20] MEDS: Ammonium Lactate 12% Lotion (225 g) EXT SCH (09:26)
--- NOTE | 2018-01-20 09:49 | CP.PCM.PN ---
Subjective - Date & Time of Evaluation Date of Evaluation: 01/20/18 Time of Evaluation: 09:46 - Subjective Subjective: Patient seen and evaluated bedside. No acute issues overnight. Patient says he is feeling tired, and complaining of pain pointing to his belly. Denies chest pain, shortness of breath, fever, chills, or any other complaints at this time. Objective - Vital Signs/Intake and Output Vital Signs (last 24 hours): Temp Pulse Resp BP Pulse Ox 99 F 100 H 20 164/105 H 99 01/20/18 06:00 01/20/18 06:00 01/20/18 06:00 01/20/18 09:20 01/20/18 06:00 - Medications Medications: Current Medications Acetaminophen (Tylenol 325mg Tab) 650 mg PO Q6H PRN PRN Reason: FEVER>=99.5F Last Admin: 01/20/18 02:10 Dose: 650 mg Acetaminophen (Tylenol 650 Mg Supp) 650 mg RC Q6H PRN PRN Reason: TEMP>=99.5F Fentanyl (Duragesic) 1 patch TD Q72H [facility] Last Admin: 01/19/18 13:36 Dose: 1 patch Hydromorphone HCl (Dilaudid) 2 mg IVP Q4H PRN PRN Reason: Pain, severe (8-10) Last Admin: 01/20/18 05:42 Dose: 2 mg Cefazolin Sodium 2 gm/ Sodium (Chloride) 100 mls @ 200 mls/hr IVPB Q8 TAMMY PRN Reason: Protocol Last Admin: 01/20/18 05:37 Dose: 200 mls/hr Sodium Chloride (Sodium Chloride 0.9%) 1,000 mls @ 100 mls/hr IV .Q10H [facility] Last Admin: 01/19/18 20:04 Dose: 100 mls/hr Multivitamins/Vitamin C 10 ml/Insulin Human Regular 5 units / Amino Acids/ Electrolytes/Dextrose 2,010.05 mls @ 83 mls/hr IV .Q24H [facility] Stop: 01/22/18 17:59 Last Admin: 01/19/18 20:00 Dose: 83 mls/hr Fat Emulsion Intravenous (Intralipid 20%) 250 mls @ 21 mls/hr IV MWF@1800 [facility] Stop: 01/22/18 17:59 Lactic Acid (Lac-Hydrin 12% Lotion (225 G)) 0 gm EXT DAILY [facility] Last Admin: 01/20/18 09:26 Dose: 1 applic Metoclopramide HCl (Reglan) 5 mg IVP Q6H [facility] Last Admin: 01/20/18 05:37 Dose: 5 mg Metoprolol Tartrate (Lopressor) 12.5 mg PO BID [facility] Last Admin: 01/20/18 09:20 Dose: 12.5 mg Midodrine (Proamatine) 10 mg PO TID [facility] Last Admin: 01/20/18 09:21 Dose: Not Given Ondansetron HCl (Zofran Inj) 4 mg IVP Q4H PRN PRN Reason: Nausea/Vomiting Last Admin: 01/19/18 07:09 Dose: 4 mg Pantoprazole Sodium (Protonix Ec Tab) 40 mg PO ACB [facility] Last Admin: 01/20/18 09:21 Dose: 40 mg Potassium Chloride (Potassium Chloride Oral Soln) 20 meq PO BID [facility] Stop: 01/20/18 10:01 Last Admin: 01/20/18 09:20 Dose: 20 meq Sodium Bicarbonate (Sodium Bicarbonate Tab) 1,300 mg PO BID [facility] Last Admin: 01/20/18 09:24 Dose: 1,300 mg - Labs Labs: 01/20/18 06:20 01/20/18 06:20 PT 14.8 SECONDS (9.4-12.5) H 01/18/18 06:20 INR 1.28 (0.93-1.08) H 01/18/18 06:20 APTT 38.2 Seconds (25.1-36.5) H 01/18/18 06:20 - Constitutional Appears: Toxic, Chronically Ill - Head Exam Head Exam: ATRAUMATIC, NORMAL INSPECTION, NORMOCEPHALIC - Eye Exam Eye Exam: Normal appearance, Scleral icterus - ENT Exam ENT Exam: Mucous Membranes Moist - Respiratory Exam Respiratory Exam: Clear to Ausculation Bilateral, NORMAL BREATHING PATTERN - Cardiovascular Exam Cardiovascular Exam: Tachycardia, +S1, +S2 - GI/Abdominal Exam GI & Abdominal Exam: Soft Additional comments: ileostomy in place - Extremities Exam Extremities Exam: absent: Pedal Edema - Neurological Exam Neurological Exam: Alert, Awake, Oriented x3 - Skin Additional comments: jaundiced Assessment and Plan - Assessment and Plan (Free Text) Assessment: 62 year old male with PMHx of carcinoid tumor diagnosed 4 years ago s/p colectomy, ileostomy, right sided nephrostomy tube, recently discharged from the hospital for sepsis from pyelonephritis/cystitis, PEG tube with chronic bowel obstruction and PICC line on TPN, presented to the hospital for near syncope. Patient is being treated for sepsis, PRANAV, elevated liver function and bleeding form ileostomy site. Plan: 1. Sepsis -afebrile -leukocytosis -ID consulted -cefazolin day 11 -intial Blood cultures showing gram negative rods, repeat showing no growth currently -likely secondary from PICC line, which was removed -tachycardic 2. Anemia -Hgn 8.4 -status post 4 units PRBC -will transfuse 2 units today -continue to monitor 3. Elevated Liver Enzymes and Elevated Bilirubin -continue to trend -CT abdomen/pelvis: no acute intrabdominal findings -GI Olivo consulted, follow recs -octreotide 4. Carcinoid Tumor-chronic -palliative care consult -pain medications -right chemo cath -TPN -Heme consulted, riaz, follow recs 5. PRANAV -nephro consulted, Oumar, follow recs -continue fluids -sodium bicarb 6. Hypotension-chronic -continue to monitor -continue home meds 7. Bleeding From ileostomy -GI consulted, Pallavi, follow recs -hold heparin -enteroscopy showing bleeding but no luminal mass 8. Hypokalemia-resolved -K 3.8 -continue to monitor 9. Vomiting -Zofran PRN -Reglan PPX: GI: protonix DVT: heparin SC on hold DNR/DNI Patient seen and discussed with attending Dr. Wagner
--- NOTE | 2018-01-20 11:24 | CP.PCM.PN ---
Subjective - Date & Time of Evaluation Date of Evaluation: 01/20/18 Time of Evaluation: 11:00 - Subjective Subjective: Weak, lethargic, intermittent vomiting, intractable pain Objective - Vital Signs/Intake and Output Vital Signs (last 24 hours): Temp Pulse Resp BP Pulse Ox 99 F 100 H 20 164/105 H 99 01/20/18 06:00 01/20/18 06:00 01/20/18 06:00 01/20/18 09:20 01/20/18 06:00 - Medications Medications: Current Medications Acetaminophen (Tylenol 325mg Tab) 650 mg PO Q6H PRN PRN Reason: FEVER>=99.5F Last Admin: 01/20/18 02:10 Dose: 650 mg Acetaminophen (Tylenol 650 Mg Supp) 650 mg RC Q6H PRN PRN Reason: TEMP>=99.5F Fentanyl (Duragesic) 1 patch TD Q72H [facility] Last Admin: 01/19/18 13:36 Dose: 1 patch Hydromorphone HCl (Dilaudid) 2 mg IVP Q4H PRN PRN Reason: Pain, severe (8-10) Last Admin: 01/20/18 10:05 Dose: 2 mg Cefazolin Sodium 2 gm/ Sodium (Chloride) 100 mls @ 200 mls/hr IVPB Q8 [facility] PRN Reason: Protocol Last Admin: 01/20/18 05:37 Dose: 200 mls/hr Sodium Chloride (Sodium Chloride 0.9%) 1,000 mls @ 100 mls/hr IV .Q10H [facility] Last Admin: 01/19/18 20:04 Dose: 100 mls/hr Multivitamins/Vitamin C 10 ml/Insulin Human Regular 5 units / Amino Acids/ Electrolytes/Dextrose 2,010.05 mls @ 83 mls/hr IV .Q24H [facility] Stop: 01/22/18 17:59 Last Admin: 01/19/18 20:00 Dose: 83 mls/hr Fat Emulsion Intravenous (Intralipid 20%) 250 mls @ 21 mls/hr IV MWF@1800 [facility] Stop: 01/22/18 17:59 Lactic Acid (Lac-Hydrin 12% Lotion (225 G)) 0 gm EXT DAILY [facility] Last Admin: 01/20/18 09:26 Dose: 1 applic Metoclopramide HCl (Reglan) 5 mg IVP Q6H [facility] Last Admin: 01/20/18 10:06 Dose: 5 mg Metoprolol Tartrate (Lopressor) 12.5 mg PO BID [facility] Last Admin: 01/20/18 09:20 Dose: 12.5 mg Midodrine (Proamatine) 10 mg PO TID [facility] Last Admin: 01/20/18 09:21 Dose: Not Given Ondansetron HCl (Zofran Inj) 4 mg IVP Q4H PRN PRN Reason: Nausea/Vomiting Last Admin: 01/19/18 07:09 Dose: 4 mg Pantoprazole Sodium (Protonix Ec Tab) 40 mg PO ACB [facility] Last Admin: 01/20/18 09:21 Dose: 40 mg Sodium Bicarbonate (Sodium Bicarbonate Tab) 1,300 mg PO BID [facility] Last Admin: 01/20/18 09:24 Dose: 1,300 mg - Labs Labs: 01/20/18 06:20 01/20/18 06:20 PT 14.8 SECONDS (9.4-12.5) H 01/18/18 06:20 INR 1.28 (0.93-1.08) H 01/18/18 06:20 APTT 38.2 Seconds (25.1-36.5) H 01/18/18 06:20 - Constitutional Appears: Cachectic, Chronically Ill - Head Exam Head Exam: NORMOCEPHALIC - Eye Exam Eye Exam: Scleral icterus - ENT Exam ENT Exam: Mucous Membranes Moist - Respiratory Exam Respiratory Exam: Decreased Breath Sounds, NORMAL BREATHING PATTERN - Cardiovascular Exam Cardiovascular Exam: REGULAR RHYTHM, +S1, +S2 - GI/Abdominal Exam GI & Abdominal Exam: Tenderness, Normal Bowel Sounds Additional comments: ileatomy dark red/brown fecal matter, G tube draining green fluid, - Extremities Exam Extremities Exam: Pedal Edema - Skin Skin Exam: Dry Assessment and Plan - Assessment and Plan (Free Text) Assessment: 62 year old male with history of metastatic carcinoma cancer, bowel obstruction s/p ileostomy, G tube who is admitted with sepsis, anemia, PRANAV, pneumonia, bacteremia, anorexia, nausea,vomiting, intractable pain and bleeding from ileostomy. Voice message left for , per our last discussion meeting to take place today regarding decision for hospice. The patient remains non committal, waiting for . Plan: Goals of care
--- NOTE | 2018-01-20 15:04 | CP.PCM.PN ---
Subjective - Date & Time of Evaluation Date of Evaluation: 01/20/18 Time of Evaluation: 12:40 - Subjective Subjective: Patient still feels weak, no fevers. Objective - Vital Signs/Intake and Output Vital Signs (last 24 hours): Temp Pulse Resp BP Pulse Ox 99 F 100 H 20 164/105 H 99 01/20/18 06:00 01/20/18 06:00 01/20/18 06:00 01/20/18 09:20 01/20/18 06:00 - Medications Medications: Current Medications Acetaminophen (Tylenol 325mg Tab) 650 mg PO Q6H PRN PRN Reason: FEVER>=99.5F Last Admin: 01/20/18 02:10 Dose: 650 mg Acetaminophen (Tylenol 650 Mg Supp) 650 mg RC Q6H PRN PRN Reason: TEMP>=99.5F Fentanyl (Duragesic) 1 patch TD Q72H [facility] Last Admin: 01/19/18 13:36 Dose: 1 patch Hydromorphone HCl (Dilaudid) 2 mg IVP Q4H PRN PRN Reason: Pain, severe (8-10) Last Admin: 01/20/18 10:05 Dose: 2 mg Cefazolin Sodium 2 gm/ Sodium (Chloride) 100 mls @ 200 mls/hr IVPB Q8 [facility] PRN Reason: Protocol Last Admin: 01/20/18 05:37 Dose: 200 mls/hr Sodium Chloride (Sodium Chloride 0.9%) 1,000 mls @ 100 mls/hr IV .Q10H [facility] Last Admin: 01/19/18 20:04 Dose: 100 mls/hr Multivitamins/Vitamin C 10 ml/Insulin Human Regular 5 units / Amino Acids/ Electrolytes/Dextrose 2,010.05 mls @ 83 mls/hr IV .Q24H [facility] Stop: 01/22/18 17:59 Last Admin: 01/19/18 20:00 Dose: 83 mls/hr Fat Emulsion Intravenous (Intralipid 20%) 250 mls @ 21 mls/hr IV MWF@1800 [facility] Stop: 01/22/18 17:59 Lactic Acid (Lac-Hydrin 12% Lotion (225 G)) 0 gm EXT DAILY [facility] Last Admin: 01/20/18 09:26 Dose: 1 applic Metoclopramide HCl (Reglan) 5 mg IVP Q6H [facility] Last Admin: 01/20/18 10:06 Dose: 5 mg Metoprolol Tartrate (Lopressor) 12.5 mg PO BID [facility] Last Admin: 01/20/18 09:20 Dose: 12.5 mg Midodrine (Proamatine) 10 mg PO TID [facility] Last Admin: 01/20/18 09:21 Dose: Not Given Ondansetron HCl (Zofran Inj) 4 mg IVP Q4H PRN PRN Reason: Nausea/Vomiting Last Admin: 01/19/18 07:09 Dose: 4 mg Pantoprazole Sodium (Protonix Ec Tab) 40 mg PO ACB [facility] Last Admin: 01/20/18 09:21 Dose: 40 mg Sodium Bicarbonate (Sodium Bicarbonate Tab) 1,300 mg PO BID [facility] Last Admin: 01/20/18 09:24 Dose: 1,300 mg - Labs Labs: 01/20/18 06:20 01/20/18 06:20 PT 14.8 SECONDS (9.4-12.5) H 01/18/18 06:20 INR 1.28 (0.93-1.08) H 01/18/18 06:20 APTT 38.2 Seconds (25.1-36.5) H 01/18/18 06:20 - Constitutional Appears: Cachectic, Chronically Ill - Head Exam Head Exam: NORMAL INSPECTION - Respiratory Exam Respiratory Exam: Decreased Breath Sounds - Cardiovascular Exam Cardiovascular Exam: +S1, +S2 - GI/Abdominal Exam GI & Abdominal Exam: Soft. absent: Tenderness Assessment and Plan - Assessment and Plan (Free Text) Plan: Assessment severe sepsis with acute on chronic renal failure due to Klebsiella bacteremia probably from PICC line-related infection S/P removal, S/P replacement of nephrostomy tube, S/P placement of new right internal jugular vein central venous catheter/ right chest wall port worsening matting of intestines with GI bleeding as seen on CT A/P history of sepsis S/P right sided pyelonephritis with associated cystitis, with persistent coagulase negative staph bacteremia probably port/ central line as the source S/P removal pneumobilia and elevated bilirubin, consider S/P cholecystectomy R/O choledocholethiasis carcinoma of GI tract S/P colectomy and ileostomy S/P nephrostomy tube placement on the right 2 years ago history of G-tube placement chronic renal failure Plan continue Cefazolin day 11 and will recommend at least 2 weeks of antibiotics from time of PICC removal (day 11 today) repeat blood cx are negative overall prognosis is poor
[2018-01-20] MEDS ORDERED: Fat Emulsion 20% IV 250 ML IV SCH (18:00)
[2018-01-21] MEDS: HYDROmorphone 2 mg/ml ISec IVP PRN ×6 (02:39→19:37)
[2018-01-21] MEDS: ceFAZolin 2 GM in Sodium Chloride 0.9% 100 ML IVPB SCH ×3 (05:10→21:50)
[2018-01-21 07:42] LABS: ALB/GLOB RATIO 0.6 (1.1-1.8); ALBUMIN 2.3 g/dL (3.0-4.8); ALT/SGPT 20 U/L (7-56); AST/SGOT 78 U/L (17-59); BILIRUBIN,DIRECT 6.8 mg/dL (0.0-0.4); BLOOD UREA NITROGEN 30 mg/dL (7-21); CALCIUM 9.6 mg/dL (8.4-10.5); GFR AFRICAN-AMERICAN > 60; GFR NON-AFRICAN AMERICAN > 60
[2018-01-21 07:50] LABS: BASO # 0.03 K/mm3 (0.0-2.0); BASO % 0.2 % (0.0-3.0); EOS # 0.5 (0.0-0.7); GRAN # 12.77 (1.4-6.5); GRAN % 77.6 % (50.0-68.0); HEMOGLOBIN 9.4 g/dL (14.0-18.0); LYMPH # 1.8 (1.2-3.4); LYMPH % 11.1 % (22.0-35.0); MEAN CELL VOLUME 87.9 fl (80.0-105.0); MEAN CORPUSCULAR HEMOGLOBIN 28.5 pg (25.0-35.0); MEAN CORPUSCULAR HGB CONC 32.4 g/dl (31.0-37.0); MEAN PLATELET VOLUME 11.6 fl (7.0-11.0); MONO # 1.3 (0.1-0.6); MONO % 8.1 % (1.0-6.0); RBC 3.3 10^6/uL (3.5-6.1); RED CELL DISTRIBUTION WIDTH 16.4 % (11.5-14.5); WHITE BLOOD COUNT 16.4 10^3/ul (4.5-11.0)
[2018-01-21] MEDS: Pantoprazole 40 mg EC Tab PO SCH (09:51)
[2018-01-21] MEDS: Ammonium Lactate 12% Lotion (225 g) EXT SCH (11:55)
--- NOTE | 2018-01-21 14:00 | PN ---
DATE: 01/21/2018 SUBJECTIVE: Patient is in bed in no acute distress, nontoxic. PHYSICAL EXAMINATION: VITAL SIGNS: Temperature is 98, blood pressure is 120/70, respiratory rate of 16. HEENT: Unremarkable. NECK: Supple. LUNGS: Have decreased breath sounds. HEART: Normal S1, S2. ABDOMEN: Soft. LABORATORY DATA: Reveals the patient's white count of 16,400, hemoglobin of 9, platelets of 497. Chemistries are noted. BUN of 30, creatinine of 0.9. Urinalysis is noted. Microbiology is reviewed. ASSESSMENT AND PLAN: A 62-year-old with severe sepsis with acute on chronic renal failure due to Klebsiella bacteremia probably of a peripherally inserted central catheter line related, status post removal and status post placement of nephrostomy tube, placement of a new right internal jugular vein central venous catheter, right chest wall port and , status post sepsis, currently on cefazolin day #12, recommend 14 days and Loyda Marinelli's note is reviewed. Review of orders reveals the cefazolin to be active. This patient with history of metastatic cancer. Prognosis is poor. Andrew Ye MD
--- NOTE | 2018-01-21 18:50 | PN ---
DATE: 01/21/2018 SUBJECTIVE: The patient is seen in room 575, bed 1. The patient is complaining of abdominal pain, wants his Dilaudid increased. The patient denies any nausea. Today, the patient is drinking some liquid juice. The patient denies any chest pain. Denies shortness of breath. Complains of abdominal pain. OBJECTIVE: VITAL SIGNS: T-max 98.2 to 98.4; pulse rate 104, 85, 98; blood pressure 117/76, 130/80, 130/80; respirations 21; O2 sat 99% to 100%. INTAKE AND OUTPUT: Output total is 1300. HEENT: Head: Normocephalic, atraumatic. Pinkish pale conjunctivae, icteric sclerae. No oropharyngeal lesion. NECK: No neck rigidity. CHEST: Kyphosis. LUNGS: Shows no rales, crackles, or wheezing. CARDIOVASCULAR: S1 and S2, regular rhythm, questionable soft systolic murmur at the left sternal border, right second intercostal space, left second intercostal space. ABDOMEN: Soft. Positive gastrostomy, positive ileostomy, positive surgical scar. GENITALIA: Male. RECTAL: Deferred. Right percutaneous nephrostomy noted. EXTREMITIES: Show no pitting edema, no calf tenderness, no Homans sign. NEUROLOGIC: The patient is alert, awake, and oriented x3. Cranial nerves II through XII limited. Gait examination not tested. MUSCULOSKELETAL: Shows a body mass index of 21. DIAGNOSTICS: 01/21/2018: WBC 16.4, hemoglobin and hematocrit 9.4 and 29, platelets 497. Granulocytes, 78% segs. Sodium 144, potassium 3.6, chloride 111, CO2 of 22, anion gap 15. BUN 30, creatinine 0.9. GFR greater than 60. Glucose 148. Calcium 9.6. Total bili 7.7, direct bili 6.8, AST 78, alk phos 458, albumin 2.3. The patient has been transfused a total of 5 units. IMPRESSION: 1. Status post septic shock with hypotension, tachycardia, hypovolemia. 2. Severe sepsis with acute renal failure and underlying chronic kidney disease. 3. Klebsiella pneumoniae bacteremia and sepsis secondary to left upper extremity PICC line placement and removal. 4. Status post right upper chest Port-A-Cath removal and placement of the new Port-A-Cath. 5. Narcotic-dependent pain syndrome of malignancy and abdominal pain. 6. Tachycardia. 7. Hypertension. 8. Persistent refractory leukocytosis with granulocytosis. 9. Bandemia. 10. Elevated erythrocyte sedimentation rate. 11. Transfusion-dependent normocytic anemia. 12. Mild coagulopathy. 13. Increased anion gap metabolic acidosis and lactic acidosis. 14. Prediabetes with hyperglycemia and hemoglobin A1c of 6.1. 15. Relative hyperuricemia. 16. Hypokalemia. 17. Hyperbilirubinemia and severe transaminitis. 18. Hyperprocalcitoninemia. 19. Funguria. 20. Ileostomy bleeding. 21. Severe deconditioning. 22. Gait dysfunction. 23. Cachexia of malignancy. 24. Advanced metastatic gastrointestinal carcinoid. 25. Chronic bowel obstruction with chronic hyperalimentation dependent feeding dysfunction. PLAN: At this time, the patient has been transfused a total of 5 units of PRBC. The patient has been ordered serial labs. The patient is DNR/DNI. CURRENT CONSULTATIONS: 1. Cardiology. 2. Palliative care. 3. Urology. 4. Infectious Disease . 5. Gastroenterology. 6. Interventional Radiology. 7. Podiatry. 8. Surgery. 9. Hematology/Oncology. CURRENT MEDICATIONS: Ancef 2 g IV every 8 hours, Clinimix hyperal at 83 mL an hour, Dilaudid increased to 2 mg IV every 3 hours p.r.n., Duragesic 50 mcg one patch every 72 hours, Intralipid 20% 250 mL on Tuesday, Tuesday, Tuesday, Lac-Hydrin lotion to both feet daily, Lopressor 12.5 mg twice a day, ProAmatine 10 mg three times a day, Protonix 40 mg daily, Reglan 5 mg IV every 6 hours, sodium bicarbonate 1300 mg twice a day, Tylenol suppository p.o. every 6 hours p.r.n., Zofran 4 mg IV every 4 hours p.r.n. Palliative care nurses attempted to contact the patient and the patient's regarding hospice decision, which has been unsuccessful at present. Overall prognosis guarded to poor and condition declining. Dictated and electronically signed, not read. Sergio Wagner MD [facility] # [id number]
--- NOTE | 2018-01-21 20:26 | CP.PCM.PN ---
Subjective - Date & Time of Evaluation Date of Evaluation: 01/21/18 Time of Evaluation: 19:00 - Subjective Subjective: Has some abdominal pain. Discussed hospice with the patient, he is unsure and is speaking to his family about it. Objective - Vital Signs/Intake and Output Vital Signs (last 24 hours): Temp Pulse Resp BP Pulse Ox 98.2 F 80 21 110/65 100 01/21/18 15:29 01/21/18 17:08 01/21/18 15:29 01/21/18 17:08 01/21/18 15:29 Intake and Output: 01/21/18 01/22/18 18:59 06:59 Intake Total 960 Output Total 1300 Balance -1300 960 - Medications Medications: Current Medications Acetaminophen (Tylenol 325mg Tab) 650 mg PO Q6H PRN PRN Reason: FEVER>=99.5F Last Admin: 01/20/18 02:10 Dose: 650 mg Acetaminophen (Tylenol 650 Mg Supp) 650 mg RC Q6H PRN PRN Reason: TEMP>=99.5F Fentanyl (Duragesic) 1 patch TD Q72H [facility] Last Admin: 01/19/18 13:36 Dose: 1 patch Hydromorphone HCl (Dilaudid) 2 mg IVP Q3H PRN PRN Reason: Pain, severe (8-10) Last Admin: 01/21/18 19:37 Dose: 2 mg Cefazolin Sodium 2 gm/ Sodium (Chloride) 100 mls @ 200 mls/hr IVPB Q8 [facility] PRN Reason: Protocol Last Admin: 01/21/18 13:21 Dose: 200 mls/hr Multivitamins/Vitamin C 10 ml/Insulin Human Regular 5 units / Amino Acids/ Electrolytes/Dextrose 2,010.05 mls @ 83 mls/hr IV .Q24H [facility] Stop: 01/22/18 17:59 Last Admin: 01/21/18 17:05 Dose: 83 mls/hr Fat Emulsion Intravenous (Intralipid 20%) 250 mls @ 21 mls/hr IV MWF@1800 [facility] Stop: 01/22/18 17:59 Last Admin: 01/20/18 18:37 Dose: 21 mls/hr Lactic Acid (Lac-Hydrin 12% Lotion (225 G)) 0 gm EXT DAILY [facility] Last Admin: 01/21/18 11:55 Dose: 1 applic Metoclopramide HCl (Reglan) 5 mg IVP Q6H [facility] Last Admin: 01/21/18 17:08 Dose: 5 mg Metoprolol Tartrate (Lopressor) 12.5 mg PO BID [facility] Last Admin: 01/21/18 17:08 Dose: 12.5 mg Midodrine (Proamatine) 10 mg PO TID [facility] Last Admin: 01/21/18 17:07 Dose: 10 mg Ondansetron HCl (Zofran Inj) 4 mg IVP Q4H PRN PRN Reason: Nausea/Vomiting Last Admin: 01/19/18 07:09 Dose: 4 mg Pantoprazole Sodium (Protonix Ec Tab) 40 mg PO ACB [facility] Last Admin: 01/21/18 09:51 Dose: 40 mg Sodium Bicarbonate (Sodium Bicarbonate Tab) 1,300 mg PO BID [facility] Last Admin: 01/21/18 17:07 Dose: 1,300 mg - Labs Labs: 01/21/18 07:00 01/21/18 07:00 PT 14.8 SECONDS (9.4-12.5) H 01/18/18 06:20 INR 1.28 (0.93-1.08) H 01/18/18 06:20 APTT 38.2 Seconds (25.1-36.5) H 01/18/18 06:20 - Head Exam Head Exam: ATRAUMATIC - Eye Exam Eye Exam: Normal appearance - ENT Exam ENT Exam: Mucous Membranes Dry - Respiratory Exam Respiratory Exam: NORMAL BREATHING PATTERN - Cardiovascular Exam Cardiovascular Exam: +S1, +S2 - GI/Abdominal Exam GI & Abdominal Exam: Normal Bowel Sounds Assessment and Plan (1) Carcinoid tumor Assessment & Plan: 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 DNR/DNI Status: Acute (2) Leukocytosis Assessment & Plan: may have reactive component from malignancy Status: Acute (3) Anemia Assessment & Plan: anemia of chronic disease from malignancy intermittent ostomy bleeding transfusion support PRN Status: Acute (4) Coagulopathy Assessment & Plan: nutritional Status: Acute
[2018-01-21] MEDS: HYDROmorphone 1 mg/ml ISec IVP PRN (22:37)
[2018-01-22] MEDS: HYDROmorphone 1 mg/ml ISec IVP PRN ×8 (01:07→22:05)
[2018-01-22] MEDS: ceFAZolin 2 GM in Sodium Chloride 0.9% 100 ML IVPB SCH ×3 (05:05→21:03)
[2018-01-22 06:36] LABS: ALB/GLOB RATIO 0.6 (1.1-1.8); ALBUMIN 2.3 g/dL (3.0-4.8); ALT/SGPT 21 U/L (7-56); AST/SGOT 87 U/L (17-59); BILIRUBIN,DIRECT 7.6 mg/dL (0.0-0.4); BLOOD UREA NITROGEN 35 mg/dL (7-21); CALCIUM 9.9 mg/dL (8.4-10.5); GFR AFRICAN-AMERICAN > 60; GFR NON-AFRICAN AMERICAN > 60
[2018-01-22 06:40] LABS: BASO # 0.05 K/mm3 (0.0-2.0); BASO % 0.3 % (0.0-3.0); EOS # 0.6 (0.0-0.7); GRAN # 11.07 (1.4-6.5); GRAN % 72.9 % (50.0-68.0); HEMOGLOBIN 9.2 g/dL (14.0-18.0); LYMPH # 0.9 (1.2-3.4); MEAN CELL VOLUME 87.8 fl (80.0-105.0); MEAN CORPUSCULAR HEMOGLOBIN 28.8 pg (25.0-35.0); MEAN CORPUSCULAR HGB CONC 32.9 g/dl (31.0-37.0); MEAN PLATELET VOLUME 11.5 fl (7.0-11.0); MONO # 2.6 (0.1-0.6); MONO % 16.8 % (1.0-6.0); RBC 3.19 10^6/uL (3.5-6.1); RED CELL DISTRIBUTION WIDTH 16.3 % (11.5-14.5); WHITE BLOOD COUNT 15.2 10^3/ul (4.5-11.0)
--- NOTE | 2018-01-22 08:47 | CP.PCM.PN ---
Subjective - Date & Time of Evaluation Date of Evaluation: 01/22/18 Time of Evaluation: 07:40 - Subjective Subjective: (covering for Dr. Wagner) Patient is seen this morning in room 575 bed 1. He is lying in bed and complains of back and abdominal pain. He says he is eating pretty good. Objective - Vital Signs/Intake and Output Vital Signs (last 24 hours): Temp Pulse Resp BP Pulse Ox 98 F 106 H 20 113/68 99 01/22/18 07:36 01/22/18 07:36 01/22/18 07:36 01/22/18 07:36 01/22/18 07:36 Intake and Output: 01/22/18 01/22/18 06:59 18:59 Intake Total 1800 Output Total 2024 Balance -225 - Medications Medications: Current Medications Acetaminophen (Tylenol 325mg Tab) 650 mg PO Q6H PRN PRN Reason: FEVER>=99.5F Last Admin: 01/20/18 02:10 Dose: 650 mg Acetaminophen (Tylenol 650 Mg Supp) 650 mg RC Q6H PRN PRN Reason: TEMP>=99.5F Fentanyl (Duragesic) 1 patch TD Q72H [facility] Last Admin: 01/19/18 13:36 Dose: 1 patch Hydromorphone HCl (Dilaudid) 2 mg IVP Q3H PRN PRN Reason: Pain, severe (8-10) Last Admin: 01/22/18 06:20 Dose: 2 mg Cefazolin Sodium 2 gm/ Sodium (Chloride) 100 mls @ 200 mls/hr IVPB Q8 [facility] PRN Reason: Protocol Last Admin: 01/22/18 05:05 Dose: 200 mls/hr Multivitamins/Vitamin C 10 ml/Insulin Human Regular 5 units / Amino Acids/ Electrolytes/Dextrose 2,010.05 mls @ 83 mls/hr IV .Q24H [facility] Stop: 01/22/18 17:59 Last Admin: 01/21/18 17:05 Dose: 83 mls/hr Fat Emulsion Intravenous (Intralipid 20%) 250 mls @ 21 mls/hr IV MWF@1800 [facility] Stop: 01/22/18 17:59 Last Admin: 01/20/18 18:37 Dose: 21 mls/hr Lactic Acid (Lac-Hydrin 12% Lotion (225 G)) 0 gm EXT DAILY [facility] Last Admin: 01/21/18 11:55 Dose: 1 applic Metoclopramide HCl (Reglan) 5 mg IVP Q6H [facility] Last Admin: 01/22/18 05:04 Dose: 5 mg Metoprolol Tartrate (Lopressor) 12.5 mg PO BID [facility] Last Admin: 01/21/18 17:08 Dose: 12.5 mg Midodrine (Proamatine) 10 mg PO TID [facility] Last Admin: 01/21/18 17:07 Dose: 10 mg Ondansetron HCl (Zofran Inj) 4 mg IVP Q4H PRN PRN Reason: Nausea/Vomiting Last Admin: 01/19/18 07:09 Dose: 4 mg Pantoprazole Sodium (Protonix Ec Tab) 40 mg PO ACB [facility] Last Admin: 01/21/18 09:51 Dose: 40 mg Sodium Bicarbonate (Sodium Bicarbonate Tab) 1,300 mg PO BID [facility] Last Admin: 01/21/18 17:07 Dose: 1,300 mg - Labs Labs: 01/22/18 06:06 01/22/18 06:06 PT 14.8 SECONDS (9.4-12.5) H 01/18/18 06:20 INR 1.28 (0.93-1.08) H 01/18/18 06:20 APTT 38.2 Seconds (25.1-36.5) H 01/18/18 06:20 - Constitutional Appears: No Acute Distress, Cachectic - Head Exam Head Exam: ATRAUMATIC, NORMOCEPHALIC - Respiratory Exam Respiratory Exam: Clear to Ausculation Bilateral, NORMAL BREATHING PATTERN - Cardiovascular Exam Cardiovascular Exam: REGULAR RHYTHM, +S1, +S2 - GI/Abdominal Exam GI & Abdominal Exam: Soft, Normal Bowel Sounds. absent: Tenderness - Neurological Exam Neurological Exam: Alert, Awake, Oriented x3 Assessment and Plan - Assessment and Plan (Free Text) Assessment: Metastatic carcinoid tumor Sepsis secondary to klebsiella pneumoniae bacteremia Chronic anemia Plan: Patient's initial blood cultures grew out Klebsiella pneumoniae. Patient is on IV antibiotics as per infectious disease senior health consultant. Repeat blood cultures appear to be negative so far. continue pain control. Patient and are considering hospice. Dr. Wagner will see the patient tomorrow.
[2018-01-22] MEDS: Pantoprazole 40 mg EC Tab PO SCH (09:20)
[2018-01-22] MEDS: Ammonium Lactate 12% Lotion (225 g) EXT SCH (09:32)
--- NOTE | 2018-01-22 14:33 | PN ---
DATE: 01/22/2018 SUBJECTIVE: The patient is in bed in no acute distress, nontoxic. PHYSICAL EXAMINATION VITAL SIGNS: Temperature is 99, blood pressure is 110/60, respiratory rate of 20, heart rate of 103. HEENT: Unremarkable. NECK: Supple. LUNGS: Have decreased breath sounds. HEART: Normal S1 and S2. ABDOMEN: Soft, nontender. LABORATORY DATA: Reveals a white count of 15,000, hemoglobin of 9, platelets of 504. BUN of 35, creatinine of 0.9. Urinalysis is noted. Serology is noted. Microbiology is reviewed. Review of orders, the patient is on cefazolin. ASSESSMENT AND PLAN: A 62-year-old male who was seen in room 575, bed 1 with severe sepsis, acute on chronic renal failure due to Klebsiella bacteremia secondary to a peripherally inserted central catheter line placement, status post removal, status post placement of nephrostomy tube, with a new right internal jugular vein central venous catheter and day #13 with complete 14 days of antibiotics. Overall prognosis is quite poor for this patient with metastatic cancer. Andrew Ye MD
[2018-01-23] MEDS: HYDROmorphone 1 mg/ml ISec IVP PRN ×8 (00:06→23:00)
[2018-01-23] MEDS: ceFAZolin 2 GM in Sodium Chloride 0.9% 100 ML IVPB SCH ×3 (05:17→21:49)
--- NOTE | 2018-01-23 07:01 | PN ---
DATE: 01/20/2018 SUBJECTIVE: The patient is seen in room 575, bed 1. The patient's overnight nurse's notes were reviewed. The patient slept during the shift. The patient still complains of nausea and vomiting. OBJECTIVE: VITAL SIGNS: T-max 99; pulse 100 to 105; blood pressure 164/105, 140/73; respirations 20, O2 sat 99%. GENERAL: The patient is seen lying in this bed. The patient is alert, awake, responsive. HEENT: Head: Normocephalic, atraumatic. Pinkish pale conjunctivae. Icteric sclerae. No oropharyngeal lesion. NECK: No neck rigidity. CHEST: Kyphosis. Positive right upper chest Port-A-Cath. Positive right flank percutaneous nephrostomy. LUNGS: Shows questionable decreased breath sound at the bases, left more than the right. CARDIOVASCULAR: S1 and S2, regular rhythm. Questionable positive soft systolic murmur at the left sternal border, right second intercostal space, left second intercostal space. ABDOMEN: Shows positive gastrostomy, positive ileostomy with dark blood. Positive right percutaneous nephrostomy. GENITALIA: Male. RECTAL: Deferred. EXTREMITIES: Show no pitting edema, no calf tenderness, no Homans sign. MUSCULOSKELETAL: Shows a body mass index of 21. NEUROLOGIC: Gait examination is not tested. VASCULAR: Palpable pulses. PSYCHIATRIC: Not applicable. DIAGNOSTICS: As per 01/20/2018: WBC 14.3, hemoglobin and hematocrit 8.4 and 26.2, platelets 421. Granulocytes, 74% segs. Sodium 144, potassium 3.8, chloride 114, CO2 of 21, anion gap 12. BUN 30, creatinine 0.9. GFR greater than 60. Glucose 119, 135, and 110. Calcium 9.4. Total bili 8.1, direct bili 7.1, AST 73, alk phos 488. Albumin 2.3. The patient received 4 units of PRBC. IMPRESSION AND PLAN: 1. Intermittent ileostomy bleeding. 2. Status post septic shock, severe sepsis, and multiple organ dysfunction syndrome. 3. Hypertension. 4. Tachycardia. 5. Low-grade fever. 6. Cachexia of malignancy. 7. Chronic narcotics and pain syndrome of malignancy. 8. Persistent refractory leukocytosis with granulocytosis and bandemia. 9. Elevated erythrocyte sedimentation rate of 122. 10. Persistent refractory recurrent anemia. 11. Transfusion-dependent normocytic anemia. 12. Mild coagulopathy. 13. Increased anion gap metabolic acidosis and lactic acidosis. 14. Acute renal failure and acute kidney injury. 15. Prerenal kidney injury. 16. Hyperglycemia with prediabetes with hemoglobin A1c of 6.1. 17. Hyperbilirubinemia. 18. Severe transaminitis. 19. Advanced metastatic gastrointestinal carcinoid. 20. Klebsiella pneumoniae bacteremia and sepsis. 21. Funguria. 22. Status post 4 units of packed red blood cell transfusion. 23. Small bilateral pleural effusion, left more than the right. 24. Bibasilar atelectasis. 25. Intrahepatic biliary ductal dilatation. 26. Nonvisualized gallbladder. 27. Fatty atrophic pancreas. 28. Nonvisualized spleen. 29. Right percutaneous nephrostomy. 30. Incompletely distended, thickened wall appearance of urinary bladder with muscular hypertrophy and possible cystitis. 31. Ileostomy and gastrostomy. 32. Status post colectomy, appendectomy, and ileostomy of the left lower quadrant with rectosigmoid stump in the pelvis. 33. Small bowel ill-defined matted mass within the mid abdomen exhibiting amorphous appearance and thickened wall consistent with mesenteric metastasis and secondary adherence of the multiple small bowel loop. 34. Nonspecific retroperitoneal lymphadenopathy. 35. 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 36. Anasarca. 37. Left gluteal lipoma. 38. Gastroesophageal reflux with fluid within the distal esophagus. 39. Pneumobilia. 40. Stage IV gastrointestinal carcinoid tumor, status post colectomy, ileostomy, right percutaneous nephrostomy. 41. Chronic hyperalimentation-dependent chronic bowel obstruction. 42. Persistent recurrent nausea. 43. Stage IV carcinoid tumor with lymph node and peritoneal metastases complicated by bowel obstruction and refractory nausea, vomiting. 44. Anemia of chronic disease. 45. Hyperprocalcitoninemia. 46. Status post endoscopy and push enteroscopy. 47. Distal ileum bleeding. PLAN: At this time, the patient has been ordered transfusion of 2 units of PRBC. The patient has been ordered repeat labs for the morning. The patient was seen by hematology. The patient was ordered chromogranin A ECL. CURRENT CONSULTANTS: 1. Cardiology. 2. Palliative care. 3. Urology. 4. Infectious disease. 5. Gastroenterology. 6. Interventional radiology. 7. Podiatry. 8. Surgery. CURRENT MEDICATIONS: Ancef 2 g IV every 8 hours, Clinimix TPN 83 mL an hour, Dilaudid 2 mg IV every 4 hours p.r.n., Duragesic patch 50 mcg every 72 hours, Intralipid 20% Tuesday, Tuesday, and Tuesday, Lac-Hydrin lotion to the both feet daily, Lopressor 12.5 twice a day, ProAmatine 10 mg three times a day, Protonix 40 mg daily, Reglan 5 mg IV every 6 hours, sodium bicarb 1300 mg twice a day, IV fluid 0.9 normal saline at 100 mL an hour, Tylenol p.r.n., Zofran 4 mg IV every 4 hours p.r.n. Chest PT ordered, out of bed to chair, JOESPH stockings, SCDs, occupational therapy, physical therapy ordered. The patient again reinforced about the patient's condition, diagnosis, overall guarded to poor prognosis which he acknowledged and understand. The patient is a DNR/DNI. The patient and palliative care nurses are waiting for the patient's family and the patient's decision regarding inpatient hospice. Dictated and electronically signed, not read. Sergio Wagner MD
[2018-01-23 08:09] LABS: BASO # 0.04 K/mm3 (0.0-2.0); BASO % 0.2 % (0.0-3.0); EOS # 0.4 (0.0-0.7); EOS % 2.3 % (1.5-5.0); GRAN # 12.21 (1.4-6.5); GRAN % 71.2 % (50.0-68.0); HEMOGLOBIN 9.9 g/dL (14.0-18.0); LYMPH # 2.4 (1.2-3.4); LYMPH % 14.1 % (22.0-35.0); MEAN CELL VOLUME 86.9 fl (80.0-105.0); MEAN CORPUSCULAR HEMOGLOBIN 29.6 pg (25.0-35.0); MEAN PLATELET VOLUME 10.8 fl (7.0-11.0); MONO # 2.1 (0.1-0.6); MONO % 12.2 % (1.0-6.0); RBC 3.35 10^6/uL (3.5-6.1); RED CELL DISTRIBUTION WIDTH 16.4 % (11.5-14.5); WHITE BLOOD COUNT 17.2 10^3/ul (4.5-11.0)
[2018-01-23] MEDS: Pantoprazole 40 mg EC Tab PO SCH (08:25)
[2018-01-23 08:27] LABS: ALB/GLOB RATIO 0.6 (1.1-1.8); ALBUMIN 2.7 g/dL (3.0-4.8); ALT/SGPT 24 U/L (7-56); AST/SGOT 127 U/L (17-59); BLOOD UREA NITROGEN 34 mg/dL (7-21); CALCIUM 10.1 mg/dL (8.4-10.5); GFR AFRICAN-AMERICAN > 60; GFR NON-AFRICAN AMERICAN > 60
[2018-01-23] MEDS: Ammonium Lactate 12% Lotion (225 g) EXT SCH (11:40)
--- NOTE | 2018-01-23 12:23 | US ---
HISTORY: swelling TECHNIQUE: Realtime sonography through the scrotum with color and doppler flow. COMPARISON: None Available. FINDINGS: RIGHT TESTICLE: Measures 2.2 x 2.3 x 3.7 cm. Heterogeneous echotexture and increased flow. Testicular microlithiasis RIGHT EPIDIDYMIS: Epididymal head measures 0.5 x 1.2 cm. Grossly unremarkable appearance with normal flow. LEFT TESTICLE: Measures 2.2 x 2.2 x 2.3 cm. Heterogeneous echotexture and normal flow. Testicular microlithiasis LEFT EPIDIDYMIS: Epididymal head measures 0.7 x 1.0 cm. Grossly unremarkable appearance with normal flow. HYDROCELE: Small multiloculated left hydrocele. Small loculated right hydrocele. VARICOCELE: None. OTHER FINDINGS: Profile scrotal edema bilaterally. IMPRESSION: Mildly asymmetric flow to the left testicle (increase) compared to the right. No evidence of torsion. Small bilateral complex hydroceles. Profound scrotal edema.
--- NOTE | 2018-01-23 12:57 | CP.PCM.PN ---
Subjective - Date & Time of Evaluation Date of Evaluation: 01/23/18 Time of Evaluation: 11:00 - Subjective Subjective: States his pain is better controlled. Intermittent vomiting. Objective - Vital Signs/Intake and Output Vital Signs (last 24 hours): Temp Pulse Resp BP Pulse Ox 98.3 F 112 H 20 120/74 98 01/23/18 06:00 01/23/18 11:39 01/23/18 06:00 01/23/18 11:39 01/23/18 06:00 Intake and Output: 01/23/18 01/23/18 06:59 18:59 Intake Total 600 Output Total 725 Balance -125 - Medications Medications: Current Medications Acetaminophen (Tylenol 325mg Tab) 650 mg PO Q6H PRN PRN Reason: FEVER>=99.5F Last Admin: 01/20/18 02:10 Dose: 650 mg Acetaminophen (Tylenol 650 Mg Supp) 650 mg RC Q6H PRN PRN Reason: TEMP>=99.5F Fentanyl (Duragesic) 1 patch TD Q72H [facility] Last Admin: 01/22/18 10:00 Dose: 1 patch Hydromorphone HCl (Dilaudid) 2 mg IVP Q3H PRN PRN Reason: Pain, severe (8-10) Last Admin: 01/23/18 11:39 Dose: 2 mg Cefazolin Sodium 2 gm/ Sodium (Chloride) 100 mls @ 200 mls/hr IVPB Q8 TAMMY PRN Reason: Protocol Last Admin: 01/23/18 05:17 Dose: 200 mls/hr Fat Emulsion Intravenous (Intralipid 20%) 250 mls @ 21 mls/hr IV MWF@1800 [facility] Stop: 01/25/18 17:59 Multivitamins/Vitamin C 10 ml/Insulin Human Regular 5 units / Amino Acids/ Electrolytes/Dextrose 2,010.05 mls @ 83 mls/hr IV .Q24H [facility] Stop: 01/25/18 17:59 Last Admin: 01/22/18 18:51 Dose: 83 mls/hr Lactic Acid (Lac-Hydrin 12% Lotion (225 G)) 0 gm EXT DAILY [facility] Last Admin: 01/23/18 11:40 Dose: 1 applic Metoclopramide HCl (Reglan) 5 mg IVP Q6H [facility] Last Admin: 05/21/18 11:33 Dose: 5 mg Metoprolol Tartrate (Lopressor) 12.5 mg PO BID [facility] Last Admin: 01/23/18 11:39 Dose: 12.5 mg Midodrine (Proamatine) 10 mg PO TID [facility] Last Admin: 01/23/18 11:32 Dose: 10 mg Ondansetron HCl (Zofran Inj) 4 mg IVP Q4H PRN PRN Reason: Nausea/Vomiting Last Admin: 01/19/18 07:09 Dose: 4 mg Pantoprazole Sodium (Protonix Ec Tab) 40 mg PO ACB [facility] Last Admin: 01/23/18 08:25 Dose: 40 mg Sodium Bicarbonate (Sodium Bicarbonate Tab) 1,300 mg PO BID [facility] Last Admin: 01/23/18 11:31 Dose: 1,300 mg - Labs Labs: 01/23/18 08:00 01/23/18 08:00 PT 14.8 SECONDS (9.4-12.5) H 01/18/18 06:20 INR 1.28 (0.93-1.08) H 01/18/18 06:20 APTT 38.2 Seconds (25.1-36.5) H 01/18/18 06:20 - Constitutional Appears: Cachectic, Chronically Ill - Eye Exam Eye Exam: Scleral icterus - ENT Exam ENT Exam: Mucous Membranes Moist - Respiratory Exam Respiratory Exam: Decreased Breath Sounds, NORMAL BREATHING PATTERN - Cardiovascular Exam Cardiovascular Exam: REGULAR RHYTHM, +S1, +S2 - GI/Abdominal Exam GI & Abdominal Exam: Soft - Exam Additional comments: scrotal swelling - Neurological Exam Neurological Exam: Alert - Skin Skin Exam: Dry Additional comments: jaundice Assessment and Plan - Assessment and Plan (Free Text) Assessment: 62 year old male with history of metastatic carciniod cancer, who is admitted with leukocytosis, sepsis,anemia,hyperbilirubinemia,pneumonia, UTI and severe deconditioning The patient is feeling a little "stronger" today. Denies pain. Appetite poor, intermittent vomiting. Mr Cameron states that his has not been in to visit this weekend and he is not sure if she will be coming in today. No decision has been made regarding hospice. I reassured him that palliative services will support him in establishing goals of care. Explained that if not ready for hospice, alternative care such as LTAC should be considered. VM message left for . Time spent with patient in goals of care discussion, 20 minutes Plan: Palliative support in establishing goals of care
--- NOTE | 2018-01-23 13:10 | PN ---
DATE: 01/23/2018 SUBJECTIVE: The patient is seen lying in the bed in room 575, bed one. The patient has been complaining of scrotal swelling and penile swelling since yesterday. The patient was consulted with Urology. The patient does not appear to be in any pain. Overnight nurse's notes were reviewed. The patient denies any difficulty in the pain. The patient denies any abdominal pain at this time. PHYSICAL EXAMINATION: VITAL SIGNS: T-max 99.2; heart rate 102, 105; blood pressure 126/77, 120/80, 123/80; respirations 20; O2 sat 98-100%; last blood pressure 148/100, which does not appear to be correct. HEENT: Head examination normocephalic, atraumatic. HEENT examination shows pinkish pale conjunctivae, icteric sclerae. No oropharyngeal lesion. No neck rigidity. CHEST: Kyphosis. LUNGS: Shows no rales, crackles or wheezing. CARDIOVASCULAR: S1, S2. Regular rhythm. Questionable soft systolic murmur, left sternal border, right second intercostal space, left second intercostal space. ABDOMEN: Soft, positive ileostomy. Positive percutaneous nephrostomy. Positive gastrostomy and ileostomy noted. GENITALIA: Noted to be swelling of the scrotum, but no gross penile swelling noted. The patient's scrotum is tender and erythematous and swollen. EXTREMITY: Shows no pitting edema, no calf tenderness, no Homans' sign. NEUROLOGIC: The patient is alert, awake, oriented x3. Gait examination not tested. MUSCULOSKELETAL: Body mass index of 21. DIAGNOSTICS: On 01/23/2018, WBC 17.2, hemoglobin and hematocrit 9.9 and 29.1, platelet 591. Granulocytes 71% segs. Sodium 141, potassium 4, chloride 106, CO2 of 24, anion gap 14, BUN 34, creatinine 0.9, GFR greater than 60, glucose 115, calcium 10.1, magnesium 2.1, total bili has gone up to 10.4, direct bili has gone up to 9. AST has gone up to , alk phos 540, albumin 2.7. The patient's testicular ultrasound is ordered, results pending. IMPRESSION AND PLAN: 1. New-onset testicular and scrotal swelling and edema with penile swelling and edema, etiology undetermined. 2. Low-grade fever. 3. Tachycardia. 4. Status post septic shock and severe sepsis. 5. Klebsiella pneumoniae bacteremia and sepsis. 6. Funguria. 7. Persistent refractory leukocytosis with granulocytosis and bandemia. 8. Normocytic anemia. 9. Reactive thrombocytosis. 10. Granulocytosis. 11. Status post packed red blood cell transfusion x5. 12. Coagulopathy. 13. Increased anion gap metabolic acidosis and lactic acidosis. 14. Status post acute kidney injury. 15. Prerenal kidney injury. 16. Hyperbilirubinemia and severe transaminitis. 17. Prediabetes with hemoglobin A1c of 6.1. 18. Borderline hyperkalemia. 19. Transaminitis. 20. Hyperprocalcitoninemia of 13.7. 21. Mild hypoalbuminemia. 22. Funguria with proteinuria, microscopic hematuria, bilirubinuria, pyuria, bacteriuria. 23. Status post packed red blood cell transfusion x5. 24. Severe sepsis and bacteremia. 25. Status post right percutaneous nephrostomy, status post ileostomy, stress dose post gastrostomy. 26. Status post right upper chest new Port-A-Cath placement and removal of the old right upper chest Port-A-Cath. 27. History of advanced metastases gastrointestinal carcinoid tumor of the abdomen. 28. Stage IV carcinoid tumor with lymph node and peritoneal metastasis, complicated by symptomatic bowel obstruction with nausea, vomiting. 29. Leukocytosis. Plan at this time, I have tried calling the patient's including Palliative Care nurses attempted to call the patient's , but there have been no answer on the 's telephone. The Palliative Care nurses approached the patient regarding addressing the option of hospice versus long-term acute care hospitalization placement. At present, we have also asked Urology to evaluate the patient for scrotal swelling and edema. The patient at present is a do not resuscitate/do not intubate. Overall prognosis appears to be worsening and complicated. The patient has been updated by me and the other physicians involved in the care of the patient and in addition Palliative Care nurse, Loyda Marinelli about the patient's poor prognosis. The patient's has been unable to be reached by medical team and by the Palliative Care nurse. CURRENT MEDICATIONS: Ancef 2 g IV every 8; Clinimix TPN at 83 mL an hour; Dilaudid 2 mg IV every 3 hours p.r.n.; Duragesic patch 50 mcg every 72; Intralipid 250 mL Tuesday, Tuesday and Tuesday; Lac-Hydrin lotion to the feet; Lopressor 12.5 twice a day; ProAmatine 10 mg three times a day; Protonix 40 mg daily; Reglan 5 mg IV every 6; sodium bicarb 1300 mg twice a day; Tylenol p.r.n.; Zofran 4 IV every 4 p.r.n. At present, the patient is to be continued on oxygen. The patient has been ordered bladder scan every shift. Head of the bed up at 30 degrees, out of bed, physical therapy, occupational therapy reordered. The patient advised to be out of bed to chair and comply with physical therapy, occupational therapy. Since hospitalization, the patient has been staying in bed all the time, refuses to be out of bed and has already not participated much in the physical therapy. The patient's overall prognosis is guarded to poor, which has been explained to the patient and the patient's . At present, the plan is we will await further recommendation to Urology and the Palliative Care nurse Loyda Marinelli is going to approach the patient's and the patient again regarding inpatient hospice versus LTAC option. Dictated and electronically signed, not read. Sergio Wagner MD
--- NOTE | 2018-01-23 15:38 | CP.PCM.PN ---
Subjective - Date & Time of Evaluation Date of Evaluation: 01/23/18 Time of Evaluation: 15:22 - Subjective Subjective: Medicine progress note: Dr. Wagner Patient seen and examined at bedside. No acute events overnight, patient states he feels better. Objective - Vital Signs/Intake and Output Vital Signs (last 24 hours): Temp Pulse Resp BP Pulse Ox 98.8 F 112 H 20 124/81 97 01/23/18 14:00 01/23/18 14:00 01/23/18 14:00 01/23/18 14:00 01/23/18 14:00 Intake and Output: 01/23/18 01/23/18 06:59 18:59 Intake Total 600 720 Output Total 725 Balance -125 720 - Medications Medications: Current Medications Acetaminophen (Tylenol 325mg Tab) 650 mg PO Q6H PRN PRN Reason: FEVER>=99.5F Last Admin: 01/20/18 02:10 Dose: 650 mg Acetaminophen (Tylenol 650 Mg Supp) 650 mg RC Q6H PRN PRN Reason: TEMP>=99.5F Fentanyl (Duragesic) 1 patch TD Q72H [facility] Last Admin: 01/22/18 10:00 Dose: 1 patch Hydromorphone HCl (Dilaudid) 2 mg IVP Q3H PRN PRN Reason: Pain, severe (8-10) Last Admin: 01/23/18 15:11 Dose: 2 mg Cefazolin Sodium 2 gm/ Sodium (Chloride) 100 mls @ 200 mls/hr IVPB Q8 TAMMY PRN Reason: Protocol Last Admin: 01/23/18 14:09 Dose: 200 mls/hr Fat Emulsion Intravenous (Intralipid 20%) 250 mls @ 21 mls/hr IV MWF@1800 [facility] Stop: 01/25/18 17:59 Multivitamins/Vitamin C 10 ml/Insulin Human Regular 5 units / Amino Acids/ Electrolytes/Dextrose 2,010.05 mls @ 83 mls/hr IV .Q24H [facility] Stop: 01/25/18 17:59 Last Admin: 01/22/18 18:51 Dose: 83 mls/hr Lactic Acid (Lac-Hydrin 12% Lotion (225 G)) 0 gm EXT DAILY [facility] Last Admin: 01/23/18 11:40 Dose: 1 applic Metoclopramide HCl (Reglan) 5 mg IVP Q6H [facility] Last Admin: 01/23/18 11:33 Dose: 5 mg Metoprolol Tartrate (Lopressor) 12.5 mg PO BID [facility] Last Admin: 01/23/18 11:39 Dose: 12.5 mg Midodrine (Proamatine) 10 mg PO TID [facility] Last Admin: 01/23/18 14:13 Dose: 10 mg Ondansetron HCl (Zofran Inj) 4 mg IVP Q4H PRN PRN Reason: Nausea/Vomiting Last Admin: 01/19/18 07:09 Dose: 4 mg Pantoprazole Sodium (Protonix Ec Tab) 40 mg PO ACB [facility] Last Admin: 01/23/18 08:25 Dose: 40 mg Sodium Bicarbonate (Sodium Bicarbonate Tab) 1,300 mg PO BID [facility] Last Admin: 01/23/18 11:31 Dose: 1,300 mg - Labs Labs: 01/23/18 08:00 01/23/18 08:00 PT 14.8 SECONDS (9.4-12.5) H 01/18/18 06:20 INR 1.28 (0.93-1.08) H 01/18/18 06:20 APTT 38.2 Seconds (25.1-36.5) H 01/18/18 06:20 - Constitutional Appears: Non-toxic, Chronically Ill - Head Exam Head Exam: ATRAUMATIC, NORMAL INSPECTION, NORMOCEPHALIC - Eye Exam Eye Exam: EOMI, Normal appearance, PERRL Pupil Exam: NORMAL ACCOMODATION, PERRL - ENT Exam ENT Exam: Mucous Membranes Moist, Normal Exam - Neck Exam Neck Exam: Full ROM, Normal Inspection. absent: Lymphadenopathy - Respiratory Exam Respiratory Exam: Clear to Ausculation Bilateral, NORMAL BREATHING PATTERN - Cardiovascular Exam Cardiovascular Exam: REGULAR RHYTHM, +S1, +S2. absent: Murmur - GI/Abdominal Exam GI & Abdominal Exam: Soft, Normal Bowel Sounds. absent: Tenderness - Extremities Exam Extremities Exam: Full ROM, Normal Capillary Refill, Normal Inspection. absent : Joint Swelling, Pedal Edema - Back Exam Back Exam: NORMAL INSPECTION - Neurological Exam Neurological Exam: Alert, Awake, CN II-XII Intact, Normal Gait, Oriented x3 - Psychiatric Exam Psychiatric exam: Normal Affect, Normal Mood - Skin Skin Exam: Dry, Intact, Normal Color, Warm Assessment and Plan - Assessment and Plan (Free Text) Assessment: 62 year old male with PMHx of carcinoid tumor diagnosed 4 years ago s/p colectomy, ileostomy, right sided nephrostomy tube, recently discharged from the hospital for sepsis from pyelonephritis/cystitis, PEG tube with chronic bowel obstruction and PICC line on TPN, presented to the hospital for near syncope and found to be septic. Intial Blood cultures showing gram negative rods, repeat showing no growth currently Plan: Severe Sepsis, likely 2/2 infected PICC Line - Improving - ID Consult: Dr. Ye - Cefazolin day 14 Anemia, s/p 6 U PRBC - Continue to monitor H/H Transaminitis with Hyperbilirbuinemia - Continue to trend - GI Consult: Dr. Olivo - Octreotide given PRANAV - Nephro Consult: Dr. Oseguera - Continue fluids; Sodium bicarb Hypotension-chronic - Continue home Midodrine Ileostomy Bleed - GI Consult: Dr. Olivo - Hold heparin Hypokalemia - Replete mag and K+ PRN Vomiting -Zofran and Reglan PRN History Carcinoid Tumor - Palliative Care Consult: [facility] [employer] Paramonte - Heme Consulted: Dr. Wells - Pain management: Dilaudid q3 PRN, Fentanyl - TPN with fat emulsion Prophylaxis - Protonix (heparin held 2/2 ileostomy bleed)
[2018-01-23] MEDS ORDERED: Fat Emulsion 20% IV 250 ML IV SCH (18:00)
--- NOTE | 2018-01-23 18:50 | CP.PCM.PN ---
Subjective - Date & Time of Evaluation Date of Evaluation: 01/23/18 Time of Evaluation: 11:35 - Subjective Subjective: Still feels weak and tired, no fevers, not in distress. Objective - Vital Signs/Intake and Output Vital Signs (last 24 hours): Temp Pulse Resp BP Pulse Ox 98.3 F 102 H 20 148/100 H 98 01/23/18 06:00 01/23/18 06:00 01/23/18 06:00 01/23/18 06:00 01/23/18 06:00 Intake and Output: 01/23/18 01/23/18 06:59 18:59 Intake Total 600 Output Total 725 Balance -125 - Medications Medications: Current Medications Acetaminophen (Tylenol 325mg Tab) 650 mg PO Q6H PRN PRN Reason: FEVER>=99.5F Last Admin: 01/20/18 02:10 Dose: 650 mg Acetaminophen (Tylenol 650 Mg Supp) 650 mg RC Q6H PRN PRN Reason: TEMP>=99.5F Fentanyl (Duragesic) 1 patch TD Q72H [facility] Last Admin: 01/22/18 10:00 Dose: 1 patch Hydromorphone HCl (Dilaudid) 2 mg IVP Q3H PRN PRN Reason: Pain, severe (8-10) Last Admin: 01/23/18 08:25 Dose: 2 mg Cefazolin Sodium 2 gm/ Sodium (Chloride) 100 mls @ 200 mls/hr IVPB Q8 TAMMY PRN Reason: Protocol Last Admin: 01/23/18 05:17 Dose: 200 mls/hr Fat Emulsion Intravenous (Intralipid 20%) 250 mls @ 21 mls/hr IV MWF@1800 [facility] Stop: 01/25/18 17:59 Multivitamins/Vitamin C 10 ml/Insulin Human Regular 5 units / Amino Acids/ Electrolytes/Dextrose 2,010.05 mls @ 83 mls/hr IV .Q24H [facility] Stop: 01/25/18 17:59 Last Admin: 01/22/18 18:51 Dose: 83 mls/hr Lactic Acid (Lac-Hydrin 12% Lotion (225 G)) 0 gm EXT DAILY [facility] Last Admin: 01/22/18 09:32 Dose: 1 applic Metoclopramide HCl (Reglan) 5 mg IVP Q6H [facility] Last Admin: 01/23/18 05:18 Dose: 5 mg Metoprolol Tartrate (Lopressor) 12.5 mg PO BID [facility] Last Admin: 01/22/18 17:35 Dose: 12.5 mg Midodrine (Proamatine) 10 mg PO TID [facility] Last Admin: 01/22/18 17:35 Dose: 10 mg Ondansetron HCl (Zofran Inj) 4 mg IVP Q4H PRN PRN Reason: Nausea/Vomiting Last Admin: 01/19/18 07:09 Dose: 4 mg Pantoprazole Sodium (Protonix Ec Tab) 40 mg PO ACB [facility] Last Admin: 01/23/18 08:25 Dose: 40 mg Sodium Bicarbonate (Sodium Bicarbonate Tab) 1,300 mg PO BID [facility] Last Admin: 01/22/18 17:35 Dose: 1,300 mg - Labs Labs: 01/23/18 08:00 01/23/18 08:00 PT 14.8 SECONDS (9.4-12.5) H 01/18/18 06:20 INR 1.28 (0.93-1.08) H 01/18/18 06:20 APTT 38.2 Seconds (25.1-36.5) H 01/18/18 06:20 - Constitutional Appears: Cachectic, Chronically Ill - Head Exam Head Exam: NORMAL INSPECTION - Respiratory Exam Respiratory Exam: Decreased Breath Sounds - Cardiovascular Exam Cardiovascular Exam: +S1, +S2 - GI/Abdominal Exam GI & Abdominal Exam: Soft. absent: Tenderness Additional comments: colostomy in place, PEG tube in place, nephrostomy tube in place Assessment and Plan - Assessment and Plan (Free Text) Plan: Assessment severe sepsis with acute on chronic renal failure due to Klebsiella bacteremia probably from PICC line-related infection S/P removal, S/P replacement of nephrostomy tube, S/P placement of new right internal jugular vein central venous catheter/ right chest wall port worsening matting of intestines with GI bleeding as seen on CT A/P history of sepsis S/P right sided pyelonephritis with associated cystitis, with persistent coagulase negative staph bacteremia probably port/ central line as the source S/P removal pneumobilia and elevated bilirubin, consider S/P cholecystectomy R/O choledocholethiasis carcinoma of GI tract S/P colectomy and ileostomy S/P nephrostomy tube placement on the right 2 years ago history of G-tube placement chronic renal failure Plan continue Cefazolin day 14 and will recommend at least 2 weeks of antibiotics from time of PICC removal (day 14 today) - will d/c after today repeat blood cx are negative overall prognosis is poor
--- NOTE | 2018-01-23 22:35 | PCM.URO ---
Urology Progress Note - Objective Lab Studies: Reviewed (gu plans: scrotal elevation) Lab Results Last 24 Hours: Laboratory Results - last 24 hr 01/20/18 01/20/18 01/20/18 06:20 10:35 21:34 WBC RBC Hgb Hct MCV MCH MCHC RDW Plt Count MPV Gran % Lymph % (Auto) Russell % (Auto) Eos % (Auto) Baso % (Auto) Gran # Lymph # (Auto) Russell # (Auto) Eos # (Auto) Baso # (Auto) Sodium Potassium Chloride Carbon Dioxide Anion Gap BUN Creatinine Est GFR ( Amer) Est GFR (Non-Af Amer) POC Glucose (mg/dL) 146 H Random Glucose Calcium Magnesium Total Bilirubin Direct Bilirubin AST ALT Alkaline Phosphatase Total Protein Albumin Globulin Albumin/Globulin Ratio Chromagranin A 172 H Crossmatch See Detail 01/21/18 01/21/18 01/21/18 06:18 11:51 16:08 WBC RBC Hgb Hct MCV MCH MCHC RDW Plt Count MPV Gran % Lymph % (Auto) Russell % (Auto) Eos % (Auto) Baso % (Auto) Gran # Lymph # (Auto) Russell # (Auto) Eos # (Auto) Baso # (Auto) Sodium Potassium Chloride Carbon Dioxide Anion Gap BUN Creatinine Est GFR ( Amer) Est GFR (Non-Af Amer) POC Glucose (mg/dL) 133 H 124 H 104 Random Glucose Calcium Magnesium Total Bilirubin Direct Bilirubin AST ALT Alkaline Phosphatase Total Protein Albumin Globulin Albumin/Globulin Ratio Chromagranin A Crossmatch 01/21/18 01/22/18 01/22/18 20:55 06:37 16:00 WBC RBC Hgb Hct MCV MCH MCHC RDW Plt Count MPV Gran % Lymph % (Auto) Russell % (Auto) Eos % (Auto) Baso % (Auto) Gran # Lymph # (Auto) Russell # (Auto) Eos # (Auto) Baso # (Auto) Sodium Potassium Chloride Carbon Dioxide Anion Gap BUN Creatinine Est GFR ( Amer) Est GFR (Non-Af Amer) POC Glucose (mg/dL) 129 H 125 H 134 H Random Glucose Calcium Magnesium Total Bilirubin Direct Bilirubin AST ALT Alkaline Phosphatase Total Protein Albumin Globulin Albumin/Globulin Ratio Chromagranin A Crossmatch 01/22/18 01/23/18 01/23/18 21:38 08:00 08:00 WBC 17.2 H RBC 3.35 L Hgb 9.9 L Hct 29.1 L MCV 86.9 MCH 29.6 MCHC 34.0 RDW 16.4 H Plt Count 591 H MPV 10.8 Gran % 71.2 H Lymph % (Auto) 14.1 L Russell % (Auto) 12.2 H Eos % (Auto) 2.3 Baso % (Auto) 0.2 Gran # 12.21 H Lymph # (Auto) 2.4 Russell # (Auto) 2.1 H Eos # (Auto) 0.4 Baso # (Auto) 0.04 Sodium 141 Potassium 4.0 Chloride 106 Carbon Dioxide 24 Anion Gap 14 BUN 34 H Creatinine 0.9 Est GFR ( Amer) > 60 Est GFR (Non-Af Amer) > 60 POC Glucose (mg/dL) 134 H Random Glucose 115 H Calcium 10.1 Magnesium 2.1 Total Bilirubin 10.4 H Direct Bilirubin 9.0 H AST 127 H D ALT 24 Alkaline Phosphatase 540 H D Total Protein 7.2 Albumin 2.7 L Globulin 4.5 Albumin/Globulin Ratio 0.6 L Chromagranin A Crossmatch Intake & Output: Intake & Output 01/23/18 01/23/18 01/24/18 06:59 18:59 06:59 Intake Total 600 720 240 Output Total 725 Balance -125 720 240 Intake: Oral 600 720 240 Output: Urine 725 Urine, Voided 725 Other: # Voids Urine, Voided 300 400 # Bowel Movements 0 0 Vital Signs: Vital Signs - 24 hr 01/23/18 01/23/18 01/23/18 06:00 11:39 14:00 Temperature 98.3 F 98.8 F Pulse Rate 102 H 112 H 112 H Respiratory 20 20 Rate Blood Pressure 148/100 H 120/74 124/81 O2 Sat by Pulse 98 97 Oximetry 01/23/18 17:38 Temperature Pulse Rate 100 H Respiratory Rate Blood Pressure 138/83 O2 Sat by Pulse Oximetry
[2018-01-24] MEDS: HYDROmorphone 1 mg/ml ISec IVP PRN ×4 (02:05→11:49)
[2018-01-24] MEDS: ceFAZolin 2 GM in Sodium Chloride 0.9% 100 ML IVPB SCH (05:01)
[2018-01-24 06:55] LABS: BASO # 0.03 K/mm3 (0.0-2.0); BASO % 0.2 % (0.0-3.0); EOS # 0.2 (0.0-0.7); EOS % 1.1 % (1.5-5.0); GRAN # 12.36 (1.4-6.5); GRAN % 71.7 % (50.0-68.0); HEMOGLOBIN 9.2 g/dL (14.0-18.0); LYMPH # 2.6 (1.2-3.4); MEAN CELL VOLUME 87.8 fl (80.0-105.0); MEAN CORPUSCULAR HEMOGLOBIN 28.8 pg (25.0-35.0); MEAN CORPUSCULAR HGB CONC 32.9 g/dl (31.0-37.0); MEAN PLATELET VOLUME 11.2 fl (7.0-11.0); MONO # 2.1 (0.1-0.6); RBC 3.19 10^6/uL (3.5-6.1); RED CELL DISTRIBUTION WIDTH 16.5 % (11.5-14.5); WHITE BLOOD COUNT 17.2 10^3/ul (4.5-11.0)
[2018-01-24 07:32] LABS: ALB/GLOB RATIO 0.6 (1.1-1.8); ALBUMIN 2.4 g/dL (3.0-4.8); ALT/SGPT 36 U/L (7-56); AST/SGOT 121 U/L (17-59); BILIRUBIN,DIRECT 8.2 mg/dL (0.0-0.4); BLOOD UREA NITROGEN 34 mg/dL (7-21); CALCIUM 9.8 mg/dL (8.4-10.5); GFR AFRICAN-AMERICAN > 60; GFR NON-AFRICAN AMERICAN > 60
[2018-01-24 08:37] LABS: VENOUS BLOOD GAS PO2 50 mm/Hg (30-55)
[2018-01-24] MEDS ORDERED: Potassium Chloride 20 mEq ER Tab PO ONE ×2 (08:45→11:54)
[2018-01-24 08:47] LABS: PH,URINE 6.5 (4.7-8.0); URINE BILIRUBIN LARGE (NEGATIVE); URINE BLOOD LARGE (NEGATIVE); URINE GLUCOSE (UA) 100 mg/dL (NEGATIVE); URINE LEUKOCYTE ESTERASE MODERATE Leu/uL (NEGATIVE); URINE PROTEIN 100 mg/dL (<30 mg/dL); URINE UROBILINOGEN 0.2 E.U./dL (<1 E.U./dL)
[2018-01-24 08:48] LABS: URINE APPEARANCE TURBID (CLEAR); URINE COLOR YELLOW (YELLOW)
[2018-01-24 08:50] LABS: URINE BACTERIA FEW (NEG); URINE RBC TNTC /hpf (0-2)
--- NOTE | 2018-01-24 11:12 | RAD ---
HISTORY: NEW FEVER COMPARISON: 12/13/2017 TECHNIQUE: Chest PA and lateral FINDINGS: LUNGS: No active pulmonary disease. PLEURA: Interval small left pleural effusion suggested No pneumothorax apparent. CARDIOVASCULAR: Normal heart size Port-A-Cath tip terminates in the right atrium OSSEOUS STRUCTURES: Thoracic spondylosis -similar VISUALIZED UPPER ABDOMEN: Normal. OTHER FINDINGS: None. IMPRESSION: No interval infiltrate. Port-A-Cath tip terminates in the right atrium Interval small left pleural effusion
[2018-01-24] MEDS ORDERED: Vancomycin 1gm in NS 250ml 1 GM/250 ML BAG IVPB SCH (11:30)
[2018-01-24] MEDS: Ammonium Lactate 12% Lotion (225 g) EXT SCH (11:56)
[2018-01-24] MEDS: Pantoprazole 40 mg EC Tab PO SCH (12:01)
--- NOTE | 2018-01-24 12:27 | PN ---
DATE: 01/24/2018 SUBJECTIVE: See the previously dictated consult notes and progress notes from 01/08/2018, 01/09/2018 and 01/23/2018. The patient is currently sitting up in bed, eating breakfast. Similar complaints dated 01/23/2018. Urine cultures are now pending. PHYSICAL EXAMINATION: No major changes. Difficult to evaluate the abdomen for distention. Urine is noted. DIAGNOSES: Dysuria, burning, frequency, lot of penile discomfort and bladder pressure. We will do the followin. A bladder scan for whatever value, this may help us. 2. Cultures are pending. 3. We are going to offer Pyridium to see if this has any benefit and then, further plans will follow. We discussed the options of doing a cystoscopy. We also discussed in this gentleman given his general health status, etc. For further plans, we will have to follow. I will discuss further plans. Usama Bautista MD
[2018-01-24] MEDS ORDERED: Vancomycin 1gm in NS 250ml 1 GM/250 ML BAG IVPB STA (13:09)
[2018-01-24] MEDS ORDERED: Iohexol 240 (50 ml) ONE (14:21)
--- NOTE | 2018-01-24 15:50 | CP.PCM.PN ---
Subjective - Date & Time of Evaluation Date of Evaluation: 01/24/18 Time of Evaluation: 09:40 - Subjective Subjective: Medicine progress note: Dr. Wagner Patient seen and examined at bedside. Patient spiked fever overnight, but states he feels better Objective - Vital Signs/Intake and Output Vital Signs (last 24 hours): Temp Pulse Resp BP Pulse Ox 98.1 F 124 H 20 127/75 98 01/24/18 15:12 01/24/18 15:12 01/24/18 15:12 01/24/18 15:12 01/24/18 15:12 Intake and Output: 01/24/18 01/24/18 06:59 18:59 Intake Total 240 Output Total 1200 Balance -960 - Medications Medications: Current Medications Acetaminophen (Tylenol 325mg Tab) 650 mg PO Q6H PRN PRN Reason: FEVER>=99.5F Last Admin: 01/20/18 02:10 Dose: 650 mg Acetaminophen (Tylenol 650 Mg Supp) 650 mg RC Q6H PRN PRN Reason: TEMP>=99.5F Last Admin: 01/23/18 23:25 Dose: 650 mg Fentanyl (Duragesic) 1 patch TD Q72H [facility] Last Admin: 01/22/18 10:00 Dose: 1 patch Hydromorphone HCl (Dilaudid) 2 mg IVP Q3H PRN PRN Reason: Pain, severe (8-10) Fat Emulsion Intravenous (Intralipid 20%) 250 mls @ 21 mls/hr IV MWF@1800 [facility] Stop: 01/25/18 17:59 Last Admin: 01/23/18 17:39 Dose: 21 mls/hr Multivitamins/Vitamin C 10 ml/Insulin Human Regular 5 units / Amino Acids/ Electrolytes/Dextrose 2,010.05 mls @ 83 mls/hr IV .Q24H [facility] Stop: 01/25/18 17:59 Last Admin: 01/23/18 17:39 Dose: 83 mls/hr Meropenem 500 mg/ Sodium (Chloride) 50 mls @ 100 mls/hr IVPB Q12 TAMMY PRN Reason: Protocol Stop: 01/24/18 22:29 Lactic Acid (Lac-Hydrin 12% Lotion (225 G)) 0 gm EXT DAILY [facility] Last Admin: 01/24/18 11:56 Dose: 1 applic Metoclopramide HCl (Reglan) 5 mg IVP Q6H [facility] Last Admin: 01/24/18 12:01 Dose: 5 mg Metoprolol Tartrate (Lopressor) 12.5 mg PO BID [facility] Last Admin: 01/24/18 11:57 Dose: 12.5 mg Midodrine (Proamatine) 10 mg PO TID [facility] Last Admin: 01/24/18 12:00 Dose: 10 mg Ondansetron HCl (Zofran Inj) 4 mg IVP Q4H PRN PRN Reason: Nausea/Vomiting Last Admin: 01/19/18 07:09 Dose: 4 mg Pantoprazole Sodium (Protonix Ec Tab) 40 mg PO ACB [facility] Last Admin: 01/24/18 12:01 Dose: 40 mg Sodium Bicarbonate (Sodium Bicarbonate Tab) 1,300 mg PO BID [facility] Last Admin: 01/24/18 12:03 Dose: 1,300 mg - Labs Labs: 01/24/18 06:15 01/24/18 06:15 PT 14.8 SECONDS (9.4-12.5) H 01/18/18 06:20 INR 1.28 (0.93-1.08) H 01/18/18 06:20 APTT 38.2 Seconds (25.1-36.5) H 01/18/18 06:20 - Constitutional Appears: Non-toxic, Chronically Ill - Head Exam Head Exam: ATRAUMATIC, NORMAL INSPECTION, NORMOCEPHALIC - Eye Exam Eye Exam: EOMI, Normal appearance, PERRL Pupil Exam: NORMAL ACCOMODATION, PERRL - ENT Exam ENT Exam: Mucous Membranes Moist, Normal Exam - Neck Exam Neck Exam: Full ROM, Normal Inspection. absent: Lymphadenopathy - Respiratory Exam Respiratory Exam: Clear to Ausculation Bilateral, NORMAL BREATHING PATTERN - Cardiovascular Exam Cardiovascular Exam: REGULAR RHYTHM, +S1, +S2. absent: Murmur - GI/Abdominal Exam GI & Abdominal Exam: Soft, Normal Bowel Sounds. absent: Tenderness - Extremities Exam Extremities Exam: Full ROM, Normal Capillary Refill, Pedal Edema. absent: Joint Swelling, Tenderness - Back Exam Back Exam: NORMAL INSPECTION - Neurological Exam Neurological Exam: Alert, Awake, CN II-XII Intact, Normal Gait, Oriented x3 - Psychiatric Exam Psychiatric exam: Normal Affect, Normal Mood - Skin Skin Exam: Dry, Intact, Normal Color, Warm Assessment and Plan - Assessment and Plan (Free Text) Assessment: 62 year old male with PMHx of carcinoid tumor diagnosed 4 years ago s/p colectomy, ileostomy, right sided nephrostomy tube, recently discharged from the hospital for sepsis from pyelonephritis/cystitis, PEG tube with chronic bowel obstruction and PICC line on TPN, presented to the hospital for near syncope and found to be septic. Intial Blood cultures showing gram negative rods, repeat showing no growth currently. Patient spiked fever overnight, and has been tachycardic since admission. Plan: New onset Fever - ID Consult: Dr. Ye - Vanc X1; Merrem 500 q12 - Septic work up pending - Cultures and Procal SIRS Criteria - As above Anemia, s/p 6 U PRBC - Continue to monitor H/H Transaminitis with Hyperbilirbuinemia - Continue to trend - GI Consult: Dr. Olivo - Octreotide given PRANAV - Nephro Consult: Dr. Oseguera - Continue fluids; Sodium bicarb Hypotension-chronic - Continue home Midodrine Ileostomy Bleed - GI Consult: Dr. Olivo - Hold heparin Hypokalemia - Replete mag and K+ PRN Vomiting -Zofran and Reglan PRN History Carcinoid Tumor - Palliative Care Consult: [employer] [place] - Heme Consulted: Dr. Wells - Pain management: Dilaudid q3 PRN, Fentanyl - TPN with fat emulsion Prophylaxis - Protonix (heparin held 2/2 ileostomy bleed)
[2018-01-24] MEDS: HYDROmorphone 2 mg/ml ISec IVP PRN ×3 (15:54→20:41)
--- NOTE | 2018-01-24 16:01 | PN ---
DATE: 01/08/2018 No major changes from Urology standpoint. The patient is still in the Intensive Care Unit. The plan is Interventional Radiology and then, further plans to follow. Re-consult as needed. Thank you for the Urology consult. No major change. Usama Bautista MD
--- NOTE | 2018-01-24 16:59 | CON ---
DATE: 01/08/2018 UROLOGY CONSULTATION REASON FOR CONSULTATION: Management of nephrostomy tube, see the plan below. HISTORY OF PRESENT ILLNESS: Mr. Cameron is a very pleasant gentleman, who is a 62-year-old gentleman who has advanced stage carcinoid tumor. He does now possibly for obstructed nephrostomy tube. See the plan as listed below. PAST MEDICAL AND SURGICAL HISTORY: As listed, no other changes. We have seen the patient before. . MEDICATIONS: See the chart. ALLERGIES: See the chart. PHYSICAL EXAMINATION: A well-developed, he is a thin male, resting comfortably in the gurney. He is currently in the Intensive Care Unit. Physical exam difficult to exactly evaluate. Does not seem to have any acute abdomen. He has gross hematuria in the bag. He has various tubes and drainage forms. This need to be evaluated. LABORATORY DATA: See chart. DIAGNOSES: Hematuria, and nonfunctioning nephrostomy tube. PLAN: As follows, most often from Urology standpoint, ICU monitoring, sounds like a great plan and then having the interventional radiologist adjust the tubing sounds like our plan. From Urology standpoint, we are not going to make any direct intervention. At this point, we will observe and have recommendations for Interventional Radiology to change the nephrostomy tube. Thank you for the Urology consult. Usama Bautista MD
--- NOTE | 2018-01-24 17:06 | CON ---
DATE: 01/23/2018 Please see the note from 01/08 and 01/09. REASON: Scrotal edema. HISTORY OF PRESENT ILLNESS: Mr. Cameron is a very pleasant gentleman, see the hospital note. He is with advanced stage cancer in a hospice kind of situation. I was called back to evaluate the patient for scrotal edema. Further questioning, the patient is also reporting a bit complex with his urination, he is having dysuria. Whatever amount of urine is coming out, looks like as listed. Past medical, surgical history, all others no changes. The abdomen is very difficult to evaluate. The bag on the left lower quadrant is seemingly having good amount of blood. His abdomen is difficult to evaluate for distention versus general firmness. There is no evidence of acute abdomen. He has normal discharge. His scrotum with edema noted. DIAGNOSES: Painful voiding complaints and edema. So, for the scrotum, we recommend elevation. I discussed this earlier with the nurses, we will further allow parallel elevation. From a urinary standpoint, we need to discuss the possibility for a cystoscope for further evaluation versus just observation and trying to treat medically. We will discuss further plans and options. So for now, the plan is for: 1. Elevation of his scrotum. 2. Pyridium as allowed. 3. Possible cystoscopic evaluation. Usama Bautista MD
--- NOTE | 2018-01-24 18:31 | CP.PCM.PN ---
Subjective - Date & Time of Evaluation Date of Evaluation: 01/23/18 Time of Evaluation: 18:00 - Subjective Subjective: Has nausea Objective - Vital Signs/Intake and Output Vital Signs (last 24 hours): Temp Pulse Resp BP Pulse Ox 98.1 F 124 H 20 127/75 98 01/24/18 15:12 01/24/18 15:12 01/24/18 15:12 01/24/18 15:12 01/24/18 15:12 Intake and Output: 01/24/18 01/24/18 06:59 18:59 Intake Total 240 Output Total 1200 Balance -960 - Medications Medications: Current Medications Acetaminophen (Tylenol 325mg Tab) 650 mg PO Q6H PRN PRN Reason: FEVER>=99.5F Last Admin: 01/20/18 02:10 Dose: 650 mg Acetaminophen (Tylenol 650 Mg Supp) 650 mg RC Q6H PRN PRN Reason: TEMP>=99.5F Last Admin: 01/23/18 23:25 Dose: 650 mg Fentanyl (Duragesic) 1 patch TD Q72H [facility] Last Admin: 01/22/18 10:00 Dose: 1 patch Hydromorphone HCl (Dilaudid) 2 mg IVP Q3H PRN PRN Reason: Pain, severe (8-10) Last Admin: 01/24/18 15:54 Dose: 2 mg Fat Emulsion Intravenous (Intralipid 20%) 250 mls @ 21 mls/hr IV MWF@1800 [facility] Stop: 01/25/18 17:59 Last Admin: 01/23/18 17:39 Dose: 21 mls/hr Multivitamins/Vitamin C 10 ml/Insulin Human Regular 5 units / Amino Acids/ Electrolytes/Dextrose 2,010.05 mls @ 83 mls/hr IV .Q24H [facility] Stop: 01/25/18 17:59 Last Admin: 01/23/18 17:39 Dose: 83 mls/hr Meropenem 500 mg/ Sodium (Chloride) 50 mls @ 100 mls/hr IVPB Q12 TAMMY PRN Reason: Protocol Stop: 01/24/18 22:29 Lactic Acid (Lac-Hydrin 12% Lotion (225 G)) 0 gm EXT DAILY [facility] Last Admin: 01/24/18 11:56 Dose: 1 applic Metoclopramide HCl (Reglan) 5 mg IVP Q6H [facility] Last Admin: 01/24/18 12:01 Dose: 5 mg Metoprolol Tartrate (Lopressor) 12.5 mg PO BID [facility] Last Admin: 01/24/18 18:02 Dose: 12.5 mg Midodrine (Proamatine) 10 mg PO TID [facility] Last Admin: 01/24/18 18:03 Dose: 10 mg Ondansetron HCl (Zofran Inj) 4 mg IVP Q4H PRN PRN Reason: Nausea/Vomiting Last Admin: 01/19/18 07:09 Dose: 4 mg Pantoprazole Sodium (Protonix Ec Tab) 40 mg PO ACB [facility] Last Admin: 01/24/18 12:01 Dose: 40 mg Sodium Bicarbonate (Sodium Bicarbonate Tab) 1,300 mg PO BID [facility] Last Admin: 01/24/18 18:02 Dose: 1,300 mg - Labs Labs: 01/24/18 06:15 01/24/18 06:15 PT 14.8 SECONDS (9.4-12.5) H 01/18/18 06:20 INR 1.28 (0.93-1.08) H 01/18/18 06:20 APTT 38.2 Seconds (25.1-36.5) H 01/18/18 06:20 - Head Exam Head Exam: ATRAUMATIC - Eye Exam Eye Exam: Normal appearance - ENT Exam ENT Exam: Mucous Membranes Dry - Respiratory Exam Respiratory Exam: NORMAL BREATHING PATTERN - Cardiovascular Exam Cardiovascular Exam: +S1, +S2 - GI/Abdominal Exam GI & Abdominal Exam: Normal Bowel Sounds Assessment and Plan (1) Carcinoid tumor Assessment & Plan: 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 DNR/DNI Status: Acute (2) Leukocytosis Assessment & Plan: may have reactive component from malignancy Status: Acute (3) Anemia Assessment & Plan: anemia of chronic disease from malignancy intermittent ostomy bleeding transfusion support PRN Status: Acute (4) Coagulopathy Assessment & Plan: nutritional Status: Acute
--- NOTE | 2018-01-24 18:33 | CP.PCM.PN ---
Subjective - Date & Time of Evaluation Date of Evaluation: 01/24/18 Time of Evaluation: 18:15 - Subjective Subjective: Feeling better, scrotal swelling. Objective - Vital Signs/Intake and Output Vital Signs (last 24 hours): Temp Pulse Resp BP Pulse Ox 98.1 F 124 H 20 127/75 98 01/24/18 15:12 01/24/18 15:12 01/24/18 15:12 01/24/18 15:12 01/24/18 15:12 Intake and Output: 01/24/18 01/24/18 06:59 18:59 Intake Total 240 Output Total 1200 Balance -960 - Medications Medications: Current Medications Acetaminophen (Tylenol 325mg Tab) 650 mg PO Q6H PRN PRN Reason: FEVER>=99.5F Last Admin: 01/20/18 02:10 Dose: 650 mg Acetaminophen (Tylenol 650 Mg Supp) 650 mg RC Q6H PRN PRN Reason: TEMP>=99.5F Last Admin: 01/23/18 23:25 Dose: 650 mg Fentanyl (Duragesic) 1 patch TD Q72H [facility] Last Admin: 01/22/18 10:00 Dose: 1 patch Hydromorphone HCl (Dilaudid) 2 mg IVP Q3H PRN PRN Reason: Pain, severe (8-10) Last Admin: 01/24/18 15:54 Dose: 2 mg Fat Emulsion Intravenous (Intralipid 20%) 250 mls @ 21 mls/hr IV MWF@1800 [facility] Stop: 01/25/18 17:59 Last Admin: 01/23/18 17:39 Dose: 21 mls/hr Multivitamins/Vitamin C 10 ml/Insulin Human Regular 5 units / Amino Acids/ Electrolytes/Dextrose 2,010.05 mls @ 83 mls/hr IV .Q24H [facility] Stop: 01/25/18 17:59 Last Admin: 01/23/18 17:39 Dose: 83 mls/hr Meropenem 500 mg/ Sodium (Chloride) 50 mls @ 100 mls/hr IVPB Q12 TAMMY PRN Reason: Protocol Stop: 01/24/18 22:29 Lactic Acid (Lac-Hydrin 12% Lotion (225 G)) 0 gm EXT DAILY [facility] Last Admin: 01/24/18 11:56 Dose: 1 applic Metoclopramide HCl (Reglan) 5 mg IVP Q6H [facility] Last Admin: 01/24/18 12:01 Dose: 5 mg Metoprolol Tartrate (Lopressor) 12.5 mg PO BID [facility] Last Admin: 01/24/18 18:02 Dose: 12.5 mg Midodrine (Proamatine) 10 mg PO TID [facility] Last Admin: 01/24/18 18:03 Dose: 10 mg Ondansetron HCl (Zofran Inj) 4 mg IVP Q4H PRN PRN Reason: Nausea/Vomiting Last Admin: 01/19/18 07:09 Dose: 4 mg Pantoprazole Sodium (Protonix Ec Tab) 40 mg PO ACB [facility] Last Admin: 01/24/18 12:01 Dose: 40 mg Sodium Bicarbonate (Sodium Bicarbonate Tab) 1,300 mg PO BID [facility] Last Admin: 01/24/18 18:02 Dose: 1,300 mg - Labs Labs: 01/24/18 06:15 01/24/18 06:15 PT 14.8 SECONDS (9.4-12.5) H 01/18/18 06:20 INR 1.28 (0.93-1.08) H 01/18/18 06:20 APTT 38.2 Seconds (25.1-36.5) H 01/18/18 06:20 - Head Exam Head Exam: ATRAUMATIC - Eye Exam Eye Exam: Normal appearance - ENT Exam ENT Exam: Mucous Membranes Dry - Respiratory Exam Respiratory Exam: NORMAL BREATHING PATTERN - Cardiovascular Exam Cardiovascular Exam: +S1, +S2 - GI/Abdominal Exam GI & Abdominal Exam: Normal Bowel Sounds Assessment and Plan (1) Carcinoid tumor Assessment & Plan: 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 DNR/DNI Status: Acute (2) Leukocytosis Assessment & Plan: may have reactive component from malignancy Status: Acute (3) Anemia Assessment & Plan: anemia of chronic disease from malignancy intermittent ostomy bleeding transfusion support PRN Status: Acute (4) Coagulopathy Assessment & Plan: nutritional Status: Acute
--- NOTE | 2018-01-24 20:29 | PN ---
DATE: 01/24/2018 SUBJECTIVE: The patient is in bed, in no acute distress, however, he is appearing chronically ill and debilitated. PHYSICAL EXAMINATION: VITAL SIGNS: Temperature of 98, T-max was 100.7, respiratory rate of 22, pulse of 128. HEENT: Unremarkable. NECK: Supple. LUNGS: Have decreased breath sounds. HEART: Normal S1, S2. ABDOMEN: Soft. LABORATORY EXAMINATION: Reveals a white count of 17,000, hemoglobin of 9, platelets of 570. BUN of 34, creatinine of 0.9. Microbiology is noted and repeat cultures are negative. The patient had a chest x-ray. No active disease. ASSESSMENT AND PLAN: A 62-year-old with severe sepsis, [id number] renal failure with Klebsiella bacteremia, probably from a PICC line related infection and we placed a nephrostomy tube and placement of a new right internal jugular vein, renal failure and nephrostomy tube placement 2 years ago, history of G-tube placement in this patient who has history of coag-negative staph bacteremia and status post colectomy and ileostomy, carcinoma of the gastrointestinal tract and had completed cefazolin 14 days and currently the patient is on meropenem. A dose of vancomycin is given. Overall prognosis is quite poor for this patient who appears with advanced gastrointestinal carcinoid. Loyda Marinelli's note is reviewed from yesterday. Dr. Bautista's note is reviewed. Andrew Ye MD
--- NOTE | 2018-01-24 21:36 | PN ---
DATE: 01/24/2018 SUBJECTIVE: The patient is seen in room 575, bed 1. Overnight nurse's notes were reviewed. PHYSICAL EXAMINATION: VITAL SIGNS: The patient spiked a fever of 100.7, down to 100.4 down to 99.7 down to 100 degrees Fahrenheit, heart rate ranging from 108, 102, 112, 100, 128, 108. Respirations 22-20, blood pressure 127/75, 119/71, 130/76, 138/83, respiration 20, O2 sat 97-98% on room air. Intake/output noted. The patient is seen between the hours of 09:30 and 10:30 in the morning. HEENT: Head: Normocephalic, atraumatic. HEENT examination shows pinkish pale conjunctivae, icteric sclerae. No oropharyngeal lesion. No neck rigidity. CHEST: Kyphosis. LUNGS: Shows occasional rhonchi, upper lung jhaveri, anterior-posterior bilaterally. CARDIOVASCULAR: S1 and S2, tachycardic rhythm. Positive systolic murmur, left sternal border, right second intercostal space, left second intercostal space. ABDOMEN: Positive ileostomy. Positive gastrostomy. Positive right percutaneous nephrostomy. GENITALIA: Male. Positive scrotal swelling. Decreasing erythema. EXTREMITIES: Shows positive edema of the lower extremity. Positive SCDs. JOESPH stockings are missing. MUSCULOSKELETAL: Shows a body mass index of 21. NEUROLOGICAL: The patient is alert, awake, oriented x3. Cranial nerves II through XII limited. Gait examination is not tested. DIAGNOSTICS: On 01/24/2018, WBC 17.2, hemoglobin and hematocrit 9.2 and 28, platelet 570. Granulocytes 72% segs. VBG was done, which shows lactic acid of 0.19. Sodium 139, potassium 3.6, chloride 107, CO2 24, anion gap 12, BUN 34, creatinine 0.9, GFR greater than 60, glucose 120, 123, 113, hemoglobin A1c 6.1, magnesium 2.2, total bili 9.5, direct bili 8.2, AST 121, alkaline phosphatase 493, albumin 2.4. Procalcitonin level is 0.87, which is elevated. Urine pH 6.5, specific gravity 1.220, protein 100, urine glucose 100, large blood, large bilirubin, leukocyte esterase moderate, few bacteria. The patient was ordered a stat chest x-ray. It shows left pleural effusion. The patient had a testicular ultrasound done yesterday, which was reviewed. IMPRESSION: 1. New fever. 2. Tachycardia. 3. Persistent refractory leukocytosis with granulocytosis. 4. Normocytic anemia. 5. Thrombocytosis. 6. Bandemia. 7. Prerenal kidney injury. 8. Prediabetes with hyperglycemia. Hemoglobin A1c of 6.1. 9. Hyperbilirubinemia. 10. Transaminitis. 11. Mild hypoalbuminemia. 12. Hyperprocalcitoninemia. 13. Urine proteinuria, glycosuria, microscopic hematuria, bilirubinuria, pyuria, bacteriuria. 14. Scrotal swelling and edema. 15. Multiloculated left hydrocele and loculated right hydrocele. 16. Scrotal edema bilateral. 17. Asymmetrical increased left testicular flow. 18. Bilateral complex hydrocele. 19. Profound scrotal edema. 20. Small left pleural effusion. 21. Dysuria and frequency. 22. Advanced metastatic stage IV gastrointestinal carcinoid. 23. Chronic bowel obstruction and chronic hyperalimentation dependent bowel obstruction. 24. Narcotic-dependent pain syndrome of malignancy. 25. Cachexia of malignancy. 26. Hypokalemia. 27. Tachycardia. 28. Hypotension. 29. Gastroparesis. 30. Intractable nausea and vomiting secondary to chronic bowel obstruction. 31. Deconditioning. 32. Gait dysfunction. 33. Bilateral lower extremity venous stasis. PLAN AT THIS TIME: The patient has been ordered repeat blood cultures, repeat urine cultures, chest x-ray is ordered, repeat serial labs ordered. Urology reevaluation and Infectious Disease reevaluation requested. CURRENT MEDICATIONS: The patient is on Clinimix TPN at 83 mL an hour, Dilaudid 2 mg IV every 3 hours p.r.n., Duragesic patch 50 mcg every 72, Intralipid at 250 mL Tuesday, Tuesday and Tuesday, Lac-Hydrin lotion to the lower extremity, Lopressor 12.5 twice a day, meropenem 500 IV every 12 ordered by . ProAmatine 10 mg three times a day, Protonix 40 mg daily, Reglan 5 mg IV every 6, sodium bicarbonate 1300 mg twice a day, Tylenol p.o. suppository every 6 p.r.n. The patient is given a dose of vancomycin 1 g stat, Zofran 4 IV every 4 hours. The patient was seen by Urology today. Their recommendation is to offer Pyridium, but orders are not placed by Urology and option for cystoscopy was also recommended by Urology. Awaiting further intervention by Urology. The patient's overall prognosis is poor and worsening. The patient is a DNR/DNI. Dictated and electronically signed, not read. Sergio Wagner MD
[2018-01-24] MEDS ORDERED: Meropenem 500 MG in Sodium Chloride 0.9% 50 ML IVPB SCH (22:00)
[2018-01-25] MEDS: HYDROmorphone 2 mg/ml ISec IVP PRN ×8 (00:48→22:19)
[2018-01-25 06:19] LABS: BASO # 0.05 K/mm3 (0.0-2.0); BASO % 0.3 % (0.0-3.0); EOS # 0.2 (0.0-0.7); GRAN # 12.26 (1.4-6.5); GRAN % 70.1 % (50.0-68.0); LYMPH # 2.3 (1.2-3.4); LYMPH % 13.1 % (22.0-35.0); MEAN CELL VOLUME 88.1 fl (80.0-105.0); MEAN PLATELET VOLUME 10.8 fl (7.0-11.0); MONO # 2.7 (0.1-0.6); MONO % 15.5 % (1.0-6.0); RBC 3.1 10^6/uL (3.5-6.1); RED CELL DISTRIBUTION WIDTH 16.7 % (11.5-14.5); WHITE BLOOD COUNT 17.5 10^3/ul (4.5-11.0)
[2018-01-25 06:37] LABS: ALB/GLOB RATIO 0.6 (1.1-1.8); ALBUMIN 2.4 g/dL (3.0-4.8); ALT/SGPT 38 U/L (7-56); AST/SGOT 110 U/L (17-59); BILIRUBIN,DIRECT 9.6 mg/dL (0.0-0.4); BLOOD UREA NITROGEN 40 mg/dL (7-21); CALCIUM 10.2 mg/dL (8.4-10.5); GFR AFRICAN-AMERICAN > 60; GFR NON-AFRICAN AMERICAN > 60
[2018-01-25] MEDS: Pantoprazole 40 mg EC Tab PO SCH (08:43)
[2018-01-25] MEDS: Ammonium Lactate 12% Lotion (225 g) EXT SCH (10:20)
[2018-01-25] MEDS ORDERED: Meropenem 500 MG in Sodium Chloride 0.9% 50 ML IVPB SCH (11:15)
--- NOTE | 2018-01-25 12:53 | CP.PCM.PN ---
Subjective - Date & Time of Evaluation Date of Evaluation: 01/25/18 Time of Evaluation: 12:00 - Subjective Subjective: Alert, oriented, complaining of lower abdominal pain Objective - Vital Signs/Intake and Output Vital Signs (last 24 hours): Temp Pulse Resp BP Pulse Ox 100 F H 108 H 18 111/61 99 01/25/18 07:58 01/25/18 10:19 01/25/18 07:58 01/25/18 10:19 01/25/18 07:58 Intake and Output: 01/25/18 01/25/18 06:59 18:59 Intake Total 1120 Output Total 1150 Balance -30 - Medications Medications: Current Medications Acetaminophen (Tylenol 325mg Tab) 650 mg PO Q6H PRN PRN Reason: FEVER>=99.5F Last Admin: 01/25/18 05:56 Dose: 650 mg Acetaminophen (Tylenol 650 Mg Supp) 650 mg RC Q6H PRN PRN Reason: TEMP>=99.5F Last Admin: 01/23/18 23:25 Dose: 650 mg Fentanyl (Duragesic) 1 patch TD Q72H [facility] Last Admin: 01/25/18 10:49 Dose: 1 patch Hydromorphone HCl (Dilaudid) 2 mg IVP Q3H PRN PRN Reason: Pain, severe (8-10) Last Admin: 01/25/18 10:19 Dose: 2 mg Fat Emulsion Intravenous (Intralipid 20%) 250 mls @ 21 mls/hr IV MWF@1800 [facility] Stop: 01/25/18 17:59 Last Admin: 01/23/18 17:39 Dose: 21 mls/hr Multivitamins/Vitamin C 10 ml/Insulin Human Regular 5 units / Amino Acids/ Electrolytes/Dextrose 2,010.05 mls @ 83 mls/hr IV .Q24H [facility] Stop: 01/25/18 17:59 Last Admin: 01/24/18 19:25 Dose: 83 mls/hr Lactic Acid (Lac-Hydrin 12% Lotion (225 G)) 0 gm EXT DAILY [facility] Last Admin: 01/25/18 10:20 Dose: 1 applic Metoclopramide HCl (Reglan) 5 mg IVP Q6H [facility] Last Admin: 01/25/18 11:29 Dose: 5 mg Metoprolol Tartrate (Lopressor) 12.5 mg PO BID [facility] Last Admin: 01/25/18 10:19 Dose: 12.5 mg Midodrine (Proamatine) 10 mg PO TID [facility] Last Admin: 01/25/18 10:19 Dose: 10 mg Ondansetron HCl (Zofran Inj) 4 mg IVP Q4H PRN PRN Reason: Nausea/Vomiting Last Admin: 01/19/18 07:09 Dose: 4 mg Pantoprazole Sodium (Protonix Ec Tab) 40 mg PO ACB [facility] Last Admin: 01/25/18 08:43 Dose: 40 mg Sodium Bicarbonate (Sodium Bicarbonate Tab) 1,300 mg PO BID [facility] Last Admin: 01/25/18 10:19 Dose: 1,300 mg - Labs Labs: 01/25/18 06:05 01/25/18 06:05 PT 14.8 SECONDS (9.4-12.5) H 01/18/18 06:20 INR 1.28 (0.93-1.08) H 01/18/18 06:20 APTT 38.2 Seconds (25.1-36.5) H 01/18/18 06:20 - Constitutional Appears: Cachectic - Head Exam Head Exam: NORMOCEPHALIC - Eye Exam Eye Exam: Scleral icterus - Respiratory Exam Respiratory Exam: Decreased Breath Sounds, NORMAL BREATHING PATTERN - Cardiovascular Exam Cardiovascular Exam: REGULAR RHYTHM, +S1, +S2 - GI/Abdominal Exam GI & Abdominal Exam: Soft, Diminished Bowel Sounds Additional comments: ileostomy driand dark liquid stool, G tube draining large amount of green fluid - Exam Additional comments: scrotal edema - Neurological Exam Neurological Exam: Alert, Oriented x3 - Skin Skin Exam: Dry Additional comments: jaundice Assessment and Plan - Assessment and Plan (Free Text) Assessment: 62 year old male with history metastatic carcinoid cancer who is admitted with sepsis, pneumonia,UTI,GI bleed, anemia, anorexia, cachexia, severe deconditioning. I spoke with patient at length this morning. He states he has not spoken with his . has not returned my phone calls. Explained that he would need to make decision regarding next level of care. Options of hospice vs LTAC has been offered on several occasions. Patient has been resistant to making decision. He states he is not ready for hospice care. Explained best option would be LTAC and that he would have to make decision soon. Reassured that team is working with him to establish plan of care. Juli KILPATRICK also spoke with patient about transitioning to LTAC, patient has been accepted at [facility] Time spent with patient in goals of care discussion, 20 minutes Plan: Goals of care
--- NOTE | 2018-01-25 14:08 | CP.PCM.PN ---
Subjective - Date & Time of Evaluation Date of Evaluation: 01/25/18 Time of Evaluation: 09:00 - Subjective Subjective: Medicine progress note: Dr. Wagner Patient seen and examined at bedside. Patient states he is feeling worse today , but denies any specific complaints. Objective - Vital Signs/Intake and Output Vital Signs (last 24 hours): Temp Pulse Resp BP Pulse Ox 100 F H 108 H 18 111/61 99 01/25/18 07:58 01/25/18 10:19 01/25/18 07:58 01/25/18 10:19 01/25/18 07:58 Intake and Output: 01/25/18 01/25/18 06:59 18:59 Intake Total 1120 Output Total 1150 Balance -30 - Medications Medications: Current Medications Acetaminophen (Tylenol 325mg Tab) 650 mg PO Q6H PRN PRN Reason: FEVER>=99.5F Last Admin: 01/25/18 05:56 Dose: 650 mg Acetaminophen (Tylenol 650 Mg Supp) 650 mg RC Q6H PRN PRN Reason: TEMP>=99.5F Last Admin: 01/23/18 23:25 Dose: 650 mg Fentanyl (Duragesic) 1 patch TD Q72H [facility] Last Admin: 01/25/18 10:49 Dose: 1 patch Hydromorphone HCl (Dilaudid) 2 mg IVP Q3H PRN PRN Reason: Pain, severe (8-10) Last Admin: 01/25/18 13:09 Dose: 2 mg Fat Emulsion Intravenous (Intralipid 20%) 250 mls @ 21 mls/hr IV MWF@1800 [facility] Stop: 01/25/18 17:59 Last Admin: 01/23/18 17:39 Dose: 21 mls/hr Multivitamins/Vitamin C 10 ml/Insulin Human Regular 5 units / Amino Acids/ Electrolytes/Dextrose 2,010.05 mls @ 83 mls/hr IV .Q24H [facility] Stop: 01/25/18 17:59 Last Admin: 01/24/18 19:25 Dose: 83 mls/hr Lactic Acid (Lac-Hydrin 12% Lotion (225 G)) 0 gm EXT DAILY [facility] Last Admin: 01/25/18 10:20 Dose: 1 applic Metoclopramide HCl (Reglan) 5 mg IVP Q6H [facility] Last Admin: 01/25/18 11:29 Dose: 5 mg Metoprolol Tartrate (Lopressor) 12.5 mg PO BID [facility] Last Admin: 01/25/18 10:19 Dose: 12.5 mg Midodrine (Proamatine) 10 mg PO TID [facility] Last Admin: 01/25/18 13:10 Dose: 10 mg Ondansetron HCl (Zofran Inj) 4 mg IVP Q4H PRN PRN Reason: Nausea/Vomiting Last Admin: 01/25/18 13:19 Dose: 4 mg Pantoprazole Sodium (Protonix Ec Tab) 40 mg PO ACB [facility] Last Admin: 01/25/18 08:43 Dose: 40 mg Sodium Bicarbonate (Sodium Bicarbonate Tab) 1,300 mg PO BID [facility] Last Admin: 01/25/18 10:19 Dose: 1,300 mg - Labs Labs: 01/25/18 06:05 01/25/18 06:05 PT 14.8 SECONDS (9.4-12.5) H 01/18/18 06:20 INR 1.28 (0.93-1.08) H 01/18/18 06:20 APTT 38.2 Seconds (25.1-36.5) H 01/18/18 06:20 - Constitutional Appears: Well - Head Exam Head Exam: ATRAUMATIC, NORMAL INSPECTION, NORMOCEPHALIC - Eye Exam Eye Exam: EOMI, Normal appearance, PERRL Pupil Exam: NORMAL ACCOMODATION, PERRL - ENT Exam ENT Exam: Mucous Membranes Moist, Normal Exam - Neck Exam Neck Exam: Full ROM, Normal Inspection. absent: Lymphadenopathy - Respiratory Exam Respiratory Exam: Clear to Ausculation Bilateral, NORMAL BREATHING PATTERN - Cardiovascular Exam Cardiovascular Exam: REGULAR RHYTHM, +S1, +S2. absent: Murmur - GI/Abdominal Exam GI & Abdominal Exam: Soft, Normal Bowel Sounds. absent: Tenderness - Extremities Exam Extremities Exam: Full ROM, Normal Capillary Refill, Normal Inspection. absent : Joint Swelling, Pedal Edema - Back Exam Back Exam: NORMAL INSPECTION - Neurological Exam Neurological Exam: Alert, Awake, CN II-XII Intact, Normal Gait, Oriented x3 - Psychiatric Exam Psychiatric exam: Normal Affect, Normal Mood - Skin Skin Exam: Dry, Intact, Normal Color, Warm Assessment and Plan - Assessment and Plan (Free Text) Assessment: 62 year old male with PMHx of carcinoid tumor diagnosed 4 years ago s/p colectomy, ileostomy, right sided nephrostomy tube, recently discharged from the hospital for sepsis from pyelonephritis/cystitis, PEG tube with chronic bowel obstruction and PICC line on TPN, presented to the hospital for near syncope and found to be septic. Initial blood cultures showing gram negative rods, repeat showing no growth currently. Patient spiked fever two nights ago, and has been tachycardic since admission. Initial repeat blood cultures are negative, procal is elevated at .87, but patient came in at 13.?? on admission. Plan: New onset Fever - ID Consult: Dr. Ye - Vanc X1; Merrem 500 q12 - Septic work up pending - Cultures (blood, urine, portacath, tubes) SIRS Criteria - As above Anemia, s/p 6 U PRBC, likely 2/2 Anemia of Chronic Disease - Continue to monitor H/H Transaminitis with Hyperbilirbuinemia - Continue to trend - GI Consult: Dr. Olivo - Octreotide given PRANAV - Nephro Consult: Dr. Oseguera - Continue fluids; Sodium bicarb Hypotension-chronic - Continue home Midodrine Ileostomy Bleed - GI Consult: Dr. Olivo - Hold heparin Hypokalemia - Replete mag and K+ PRN Vomiting -Zofran and Reglan PRN History Carcinoid Tumor - Palliative Care Consult: DESKTOP ADMINISTRATOR Paramonte - Heme Consulted: Dr. Wells - Pain management: Dilaudid q3 PRN, Fentanyl - TPN with fat emulsion Prophylaxis - Protonix (heparin held 2/2 ileostomy bleed)
--- NOTE | 2018-01-25 15:26 | PN ---
DATE: 01/25/2018 SUBJECTIVE: The patient is in bed, in no acute distress, nontoxic. PHYSICAL EXAMINATION VITAL SIGNS: Temperature is 100, blood pressure is 111/60, respiratory rate of 18, heart rate of 117. HEENT: Unremarkable. There is temporal wasting. NECK: Supple. LUNGS: Decreased breath sounds. HEART: Normal S1 and S2. ABDOMEN: Soft, nontender. LABORATORY DATA: Reveals a white count of 17,500, hemoglobin of 9, platelets of 514. Chemistries: BUN of 40, creatinine of 0.9, procalcitonin is 0.87. Urinalysis is noted. Serology is reviewed. Microbiology reveals repeat cultures are all negative. Review of orders reveals the patient to be on meropenem and was given a dose of vancomycin. The patient's chest x-ray from yesterday is reviewed. No active disease. ASSESSMENT AND PLAN: A 62 years old with severe sepsis with [id number] renal failure with Klebsiella bacteremia, peripherally inserted central catheter line related, placed a nephrostomy tube, placement of a new internal jugular vein; renal failure and nephrostomy; history of G-tube placement, history of coag-negative staph, status post colectomy and ileostomy, completed 14 days of cefazolin, now with a new fever and the patient is chronically ill, end-stage, cachectic, wasting syndrome, advanced gastrointestinal carcinoid. Prognosis is overall quite poor. Follow with you. Andrew Ye MD
[2018-01-25] MEDS ORDERED: Fat Emulsion 20% IV 250 ML IV SCH ×2 (18:00)
[2018-01-26] MEDS: HYDROmorphone 2 mg/ml ISec IVP PRN ×6 (01:17→17:52)
[2018-01-26 07:37] LABS: BASO # 0.06 K/mm3 (0.0-2.0); BASO % 0.4 % (0.0-3.0); EOS # 0.5 (0.0-0.7); EOS % 3.8 % (1.5-5.0); GRAN # 9.82 (1.4-6.5); GRAN % 69.7 % (50.0-68.0); HEMOGLOBIN 8.9 g/dL (14.0-18.0); LYMPH # 2.5 (1.2-3.4); LYMPH % 17.4 % (22.0-35.0); MEAN CELL VOLUME 88.5 fl (80.0-105.0); MEAN CORPUSCULAR HEMOGLOBIN 29.2 pg (25.0-35.0); MEAN PLATELET VOLUME 10.9 fl (7.0-11.0); MONO # 1.2 (0.1-0.6); MONO % 8.7 % (1.0-6.0); RBC 3.05 10^6/uL (3.5-6.1); RED CELL DISTRIBUTION WIDTH 16.8 % (11.5-14.5); WHITE BLOOD COUNT 14.1 10^3/ul (4.5-11.0)
[2018-01-26 07:51] LABS: ALB/GLOB RATIO 0.6 (1.1-1.8); ALBUMIN 2.4 g/dL (3.0-4.8); ALT/SGPT 72 U/L (7-56); AST/SGOT 156 U/L (17-59); BILIRUBIN,DIRECT 9.4 mg/dL (0.0-0.4); BLOOD UREA NITROGEN 42 mg/dL (7-21); CALCIUM 10.4 mg/dL (8.4-10.5); GFR AFRICAN-AMERICAN > 60; GFR NON-AFRICAN AMERICAN > 60
[2018-01-26] MEDS: Pantoprazole 40 mg EC Tab PO SCH (08:15)
[2018-01-26 08:37] VITALS: PULSE 104
--- NOTE | 2018-01-26 08:51 | PN ---
DATE: 01/25/2018 SUBJECTIVE: The patient is seen in room 575, bed 1. Overnight nurse's notes were reviewed. The patient spiked a fever again. The patient has been requesting for pain medication. PHYSICAL EXAMINATION: VITAL SIGNS: T-max 100.7, 100.4, 100.2, down to 97.9; heart rate 117, 108, 106, 108 per minute; blood pressure 105/68, 98/65, 111/65, 127/75; respirations 18, O2 sat 96%. GENERAL: The patient is seen lying in the bed. HEENT: Head examination normocephalic, atraumatic. HEENT examination shows pinkish pale conjunctivae, icteric sclerae. No oropharyngeal lesion. No neck rigidity. CHEST: Kyphosis. Positive right upper chest Port-A-Cath noted. LUNGS: Shows no rales, crackles or wheezing. CARDIOVASCULAR: S1, S2, regular rhythm. Positive systolic murmur, left sternal border, right second intercostal space, left second intercostal space. ABDOMEN: Shows positive ileostomy. Positive gastrostomy. GENITALIA: Male. Positive scrotal swelling noted and erythema noted. MUSCULOSKELETAL: Shows decreased swelling and pitting edema of the lower extremity, but still the patient has some pitting edema and swelling of the lower extremity. Positive SCDs noted. JOESPH stockings are missing. MUSCULOSKELETAL: Shows a body mass index of 21. NEUROLOGIC: The patient is alert, awake, oriented x3. Cranial nerves II-XII limited. Gait examination not tested. VASCULAR: Palpable pulses. DIAGNOSTICS: On 01/25/2018, WBC 17.5, hemoglobin and hematocrit 9 and 27.3, platelet 514. Granulocytes 70% segs. VBG was done. Lactate was 0.9. Sodium 142, potassium 4.1, chloride 106, CO2 of 26, anion gap 14, BUN 40, creatinine 0.9, GFR greater than 60. Fingerstick blood sugar 135, 149, 120, 126, 130, 142. Calcium 10, magnesium 2.3, total bili has gone up to 11.2, direct bili is 9.6, AST 110, alk phos 404, total albumin 2.4. Hepatitis serologies negative. Blood cultures from 10/27/2017 and urine cultures negative. The patient has been transfused 5 units. The patient had a chest x-ray done yesterday for fever, which was noted. The patient was seen by Infectious Disease, Palliative Care nurses and the medical translator. IMPRESSION AND PLAN: 1. New fever. 2. Severe sepsis with Klebsiella pneumoniae bacteremia and sepsis. 3. 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 4. Cachexia. 5. Obstructive jaundice. 6. Narcotic-dependent pain syndrome of malignancy. 7. Cachexia of malignancy. 8. Advanced gastrointestinal carcinoid. 9. Worsening hyperbilirubinemia and obstructive jaundice. 10. Transaminitis. 11. Pain syndrome of malignancy. 12. Severe deconditioning. 13. Distal ileal bleeding. 14. Tachycardia. 15. Hypotension. 16. Persistent refractory leukocytosis with granulocytosis and thrombocytosis and bandemia. 17. Elevated erythrocyte sedimentation rate. 18. Increased anion gap metabolic acidosis, lactic acidosis. 19. Hyperglycemia with prediabetes. Hemoglobin A1c of 7.1. 20. Hyperbilirubinemia. 21. Mild hypoalbuminemia. 22. Funguria. 23. Scrotal edema. 24. Proteinuria, ketonuria, microscopic hematuria, bilirubinuria, pyuria, bacteriuria. 25. Right upper chest Port-A-Cath placement. 26. Right percutaneous nephrostomy. 27. Ileostomy. 28. Gastrostomy. 29. Colectomy. 30. Thoracic spondylosis. 31. Small left pleural effusion. 32. Right upper chest Port-A-Cath placement. 33. Testicular microlithiasis with increased right testicular flow. 34. Bilateral loculated hydrocele. 35. Profound scrotal edema. 36. Bilateral complex hydrocele. 37. Poor compliance and noncompliance. Current plan, the patient has been ordered repeat labs. The patient has been ordered Tylenol suppository. The patient is currently on Clinimix TPN at 83 mL an hour; Dilaudid 2 mg IV every 3 hours p.r.n.' Duragesic patch 50 mcg daily; Intralipid 20% 250 mL Tuesday, Tuesday and Tuesday; Lac-Hydrin lotion to both feet; Lopressor 12.5 twice a day; ProAmatine 10 mg three times a day; Protonix 40 mg daily; Reglan 5 mg IV every 6; sodium bicarbonate 1300 mg twice a day; Tylenol 650 mg every 6 p.r.n. p.o. and suppository; the patient was given a dose of vancomycin 1 g yesterday; Zofran 4 IV every 4 p.r.n. Chest PT ordered. The patient was seen by Dr. Ye from Infectious Diseases. Recommendation is that the patient's prognosis is very poor. The patient has completed 14 days of IV antibiotics. The patient was seen by the Palliative Care nurse. The patient's has not been returning phone calls. The patient himself is resistant to making decision regarding home hospice, hospice versus long-term acute care. The patient was advised by the Palliative Care nurses and the Budget Director that he has to make disposition decision regarding the next level of care and if the patient is not ready for home hospice or inpatient hospice, the patient was advised to consider long-term acute care options. The patient refused both hospice and the long-term acute care hospitalization. The patient is adamant about going home with services when medically clear. The patient's overall prognosis is extremely guarded to poor and condition declining. Dictated and electronically signed, not read. Sergio Wagner MD
[2018-01-26 15:23] VITALS: BP 109/70; RESP 20; TEMP 98; O2SAT 100
[2018-01-26] MEDS: Ammonium Lactate 12% Lotion (225 g) EXT SCH (17:52)
--- NOTE | 2018-01-27 00:54 | PN ---
DATE: 01/26/2018 SUBJECTIVE: The patient is in bed, was seen earlier this morning in 575, bed 1, appearing chronically ill, end-stage and weak. PHYSICAL EXAMINATION VITAL SIGNS: Temperature of 98, blood pressure is 109/70, respiratory rate of 20, heart rate of 104. HEENT: Unremarkable. NECK: Supple. LUNGS: Decreased breath sounds. HEART: Normal S1 and S2. ABDOMEN: Soft, nontender. LABORATORY DATA: Reviewed. ASSESSMENT AND PLAN: This is a 62-year-old male, with severe sepsis, acute on chronic renal failure, Klebsiella bacteremia peripherally inserted central catheter line related, placement of nephrostomy tube, internal jugular vein, renal failure, nephrostomy and history of gastrostomy tube placement and coagulase-negative Staphylococcus in patient with advanced gastrointestinal carcinoid. Overall prognosis is quite poor. Loyda Marinelli's note is reviewed. The patient has been considered for hospice. Andrew Ye MD
== END 2018-01-26 21:33 | disposition home or self-care (01) | DRG 314 ==
LOC: ED 07:43 → ERH 10:21 → ICU 11:53 → 5RSO 01-11 14:23
PROVIDERS: ADMIT Internal Medicine; ATTEND Internal Medicine
PROC: 0T25X0Z Change Drainage Device in Kidney, External Approach (ICD-10-PCS; principal; 2018-01-10)
PROC: 0JH63WZ Insertion of Totally Implantable Vascular Access Device into Chest Subcutaneous Tissue and Fascia, Percutaneous Approach (ICD-10-PCS; 2018-01-10)
PROC: 3E04329 Introduction of Other Anti-infective into Central Vein, Percutaneous Approach (ICD-10-PCS; 2018-01-10)
PROC: 30233N1 Transfusion of Nonautologous Red Blood Cells into Peripheral Vein, Percutaneous Approach (ICD-10-PCS; 2018-01-12)
PROC: 0DJ08ZZ Inspection of Upper Intestinal Tract, Via Natural or Artificial Opening Endoscopic (ICD-10-PCS; 2018-01-17)
DX: T82.7XXA Infection and inflammatory reaction due to other cardiac and vascular devices, implants and grafts, initial encounter (principal); A41.59 Other Gram-negative sepsis; K83.1 Obstruction of bile duct; R65.21 Severe sepsis with septic shock; C78.6 Secondary malignant neoplasm of retroperitoneum and peritoneum; C79.89 Secondary malignant neoplasm of other specified sites; B37.49 Other urogenital candidiasis; D68.9 Coagulation defect, unspecified; E22.1 Hyperprolactinemia; E44.0 Moderate protein-calorie malnutrition; E87.2 Acidosis; F11.20 Opioid dependence, uncomplicated; J98.11 Atelectasis; K56.609 Unspecified intestinal obstruction, unspecified as to partial versus complete obstruction; K92.2 Gastrointestinal hemorrhage, unspecified; N13.30 Unspecified hydronephrosis; N17.9 Acute kidney failure, unspecified; R64 Cachexia; T83.012A Breakdown (mechanical) of nephrostomy catheter, initial encounter; B96.1 Klebsiella pneumoniae [K. pneumoniae] as the cause of diseases classified elsewhere; D17.9 Benign lipomatous neoplasm, unspecified; B35.1 Tinea unguium; D63.0 Anemia in neoplastic disease; E83.39 Other disorders of phosphorus metabolism; E86.0 Dehydration; E87.5 Hyperkalemia; G62.9 Polyneuropathy, unspecified; G89.3 Neoplasm related pain (acute) (chronic); I12.9 Hypertensive chronic kidney disease with stage 1 through stage 4 chronic kidney disease, or unspecified chronic kidney disease; I87.8 Other specified disorders of veins; K21.9 Gastro-esophageal reflux disease without esophagitis; K31.84 Gastroparesis; K86.89 Other specified diseases of pancreas; M47.814 Spondylosis without myelopathy or radiculopathy, thoracic region; M47.816 Spondylosis without myelopathy or radiculopathy, lumbar region; N18.9 Chronic kidney disease, unspecified; N30.90 Cystitis, unspecified without hematuria; N32.89 Other specified disorders of bladder; N43.3 Hydrocele, unspecified; N48.89 Other specified disorders of penis; N50.89 Other specified disorders of the male genital organs; R73.03 Prediabetes; W19.XXXA Unspecified fall, initial encounter; Y73.2 Prosthetic and other implants, materials and accessory gastroenterology and urology devices associated with adverse incidents; Y93.01 Activity, walking, marching and hiking; Z51.5 Encounter for palliative care; Z66 Do not resuscitate; Z85.038 Personal history of other malignant neoplasm of large intestine; Z86.72 Personal history of thrombophlebitis; Z87.442 Personal history of urinary calculi; Z87.891 Personal history of nicotine dependence; Z90.49 Acquired absence of other specified parts of digestive tract; Z90.5 Acquired absence of kidney; Z90.81 Acquired absence of spleen; Z91.19 Patient's noncompliance with other medical treatment and regimen; Z92.21 Personal history of antineoplastic chemotherapy; Z93.1 Gastrostomy status; Z93.2 Ileostomy status; Z93.3 Colostomy status

== ENCOUNTER 2018-02-15 20:37 | Inpatient (IN) | payer MEDICARE, OTHER ==
--- NOTE | 2018-02-15 20:58 | ED PDOC ---
Arrival/HPI - General Chief Complaint: GI Problem Time Seen by Provider: 02/15/18 20:39 Historian: Patient, Spouse - History of Present Illness Narrative History of Present Illness (Text): 02/15/18 20:58 Babatunde Cameron is a 62 year old male, whose past medical history includes gastrointestinal carcinoid tumor, PEG tube, subtotal colectomy with rectosigmoid stump, LUE PICC line placement, chronic bowel obstruction, chronic narcotic-dependent pain syndrome, chronic kidney disease, and anemia, who presents to the Emergency department after his G-tube came out. states patient had his gastrostomy tube cleaned by a visiting nurse earlier today with saline and it "popped" out of the site. Patient also complaining of associated redness and pain to the area for the past few days. Patient denies any chest pain, shortness of breath, nausea, vomiting, or any other complaints. Symptom Onset: Gradual Symptom Course: Unchanged Activities at Onset: Light Context: Home Past Medical History - Provider Review Nursing Documentation Reviewed: Yes - Past History Past History: Non-Contributing - Infectious Disease Hx of Infectious Diseases: None - Tetanus Immunization Tetanus Immunization: Unknown - Cardiac Hx Cardiac Disorders: No - Pulmonary Hx Respiratory Disorders: No - Neurological Hx Neurological Disorder: No - HEENT Hx HEENT Disorder: No - Renal Hx Renal Disorder: Yes Other/Comment: HAS UROSTOMY - Endocrine/Metabolic Hx Endocrine Disorders: No - Hematological/Oncological Hx Blood Transfusions: Yes Hx Blood Transfusion Reaction: No - Integumentary Hx Dermatological Disorder: No - Musculoskeletal/Rheumatological Hx Falls: Yes - Gastrointestinal Hx Gastrointestinal Disorders: Yes Hx Ileostomy: Yes Other/Comment: L colostomy. G tube - Genitourinary/Gynecological Hx Genitourinary Disorders: Yes Other/Comment: HAS UROSTOMY - Psychiatric Hx Psychophysiologic Disorder: No Hx Substance Use: No - Surgical History Other/Comment: COLOSTOMY, PEG TUBE, UROSTOMY - Anesthesia Hx Anesthesia Reactions: No Hx Malignant Hyperthermia: No - Suicidal Assessment Feels Threatened In Home Enviroment: No Family/Social History - Physician Review Nursing Documentation Reviewed: Yes Family/Social History: Unknown Family HX Smoking Status: Never Smoked Hx Alcohol Use: No Hx Substance Use: No Hx Substance Use Treatment: No Allergies/Home Meds Allergies/Adverse Reactions: Allergies morphine Allergy (Verified 12/08/17 19:18) ANAPHYLAXIS Home Medications: Home Meds Medication Instructions Recorded Confirmed Amitriptyline [Elavil] 1 tab PO HS 11/27/17 01/26/18 Gabapentin [Neurontin] 1 tab PO TID 11/27/17 01/26/18 Home Med 1 appl IV HS 11/27/17 01/26/18 Loperamide [Imodium] 1 cap PO TID PRN 11/27/17 01/26/18 Review of Systems - Physician Review All systems were reviewed & negative as marked: Yes - Review of Systems Constitutional: Normal. absent: Fevers Eyes: Normal ENT: Normal Respiratory: Normal. absent: SOB, Cough Cardiovascular: Normal. absent: Chest Pain Gastrointestinal: Other (+gastrostomy site issues) Genitourinary Male: Normal Musculoskeletal: Normal Skin: Normal. absent: Rash Neurological: Normal. absent: Headache, Dizziness Endocrine: Normal Hemo/Lymphatic: Normal Psychiatric: Normal Physical Exam Vital Signs Reviewed: Yes Vital Signs Temp Pulse Resp BP Pulse Ox 02/15/18 20:54 98.8 F 115 H 18 116/66 97 Temperature: Afebrile Blood Pressure: Normal Pulse: Regular Respiratory Rate: Normal Appearance: Positive for: Non-Toxic, Comfortable Pain Distress: None Mental Status: Positive for: Alert and Oriented X 3 - Systems Exam Head: Present: Atraumatic, Normocephalic Pupils: Present: PERRL Extroacular Muscles: Present: EOMI Conjunctiva: Present: Normal Mouth: Present: Moist Mucous Membranes Neck: Present: Normal Range of Motion Respiratory/Chest: Present: Clear to Auscultation, Good Air Exchange. No: Respiratory Distress, Accessory Muscle Use Cardiovascular: Present: Regular Rate and Rhythm, Normal S1, S2. No: Murmurs Abdomen: Present: Ostomy Tubes (Erythema and purulent discharge from ostomy site ). No: Tenderness, Distention, Peritoneal Signs Medical Decision Making ED Course and Treatment: 02/15/18 20:58 Impression: 62 year old male presents after his G-tube came out, with redness and pain to the area. Plan: -- Labs, blood cultures, wound cultures -- IV fluids -- Reassess and disposition Prior Visits: Notes and results from previous visits were reviewed. On 01/08/2018, pt was seen in the Emergency department for left-sided abdominal , left-sided back pain, dizziness, and light-headedness. Pt was admitted to the hospital for further evaluation. Progress Notes: 02/15/18 23:[address] Wagner, who is aware and agrees with plan. Accepts pt in to his service. Pt will be admitted to [facility] for cellulitis and G-tube replacement. residential installer notified. Requests Dr. Olivo and Dr. Ye on consult. - Lab Interpretations Lab Results: 02/15/18 21:06 02/15/18 21:06 Lab Results 02/15/18 22:31: pO2 42, VBG pH 7.39, VBG pCO2 65.0 H, VBG HCO3 41.8 H, VBG Total CO2 43.9 H, VBG O2 Sat (Calc) 81.8 H, VBG Base Excess 13.5 H, VBG Potassium 3.4 L, Glucose 98, Lactate 1.8, FiO2 21.0, Sodium 141.0, Chloride 102.0, Venous Blood Potassium 3.4 L 02/15/18 21:06: WBC 11.8 H, RBC 3.25 L, Hgb 9.5 L, Hct 28.5 L, MCV 87.7, MCH 29.2, MCHC 33.3, RDW 17.4 H, Plt Count 481 H, MPV 10.8 02/15/18 21:06: Sodium 143, Potassium 3.2 L, Chloride 93 L, Carbon Dioxide 37 H , Anion Gap 16, BUN 42 H, Creatinine 1.3, Est GFR ( Amer) > 60, Est GFR ( Non-Af Amer) 56, Random Glucose 110, Calcium 9.5, Total Bilirubin 10.7 H, AST 194 H D, ALT 146 H, Alkaline Phosphatase 506 H D, Total Protein 8.4 H, Albumin 3.1, Globulin 5.3, Albumin/Globulin Ratio 0.6 L I have reviewed the lab results: Yes - Medication Orders Current Medication Orders: Sodium Chloride (Sodium Chloride 0.9%) 1,000 mls @ 100 mls/hr IV .Q10H TAMMY Last Admin: 02/15/18 21:28 Dose: 100 mls/hr eMAR Start Stop Document 02/15/18 21:28 AD (Rec: 02/15/18 21:30 AD [id number]) Intravenous Solution Start Date 02/15/18 Start Time 21:30 Vancomycin HCl (Vancomycin 1gm) 1 gm in 250 mls @ 167 mls/hr IVPB STAT STA PRN Reason: Protocol Stop: 02/16/18 00:58 Discontinued Medications Hydromorphone HCl (Dilaudid) 2 mg IVP STAT STA Stop: 02/15/18 22:54 Last Admin: 02/15/18 23:11 Dose: 2 mg MAR Pain Assessment Document 02/15/18 23:11 AD (Rec: 02/15/18 23:11 AD [id number]) Pain Reassessment Is this a pain reassessment? No Presence of Pain Presence of Pain Yes Pain Scale Used Pain Scale Used Numeric IVP Administration Document 02/15/18 23:11 AD (Rec: 02/15/18 23:11 AD [id number]) Charges for Administration # of IVP Administrations 1 Piperacillin Sod/Tazobactam Sod (Zosyn 3.375 In Ns 100ml) 100 mls @ 200 mls/hr IV STAT STA PRN Reason: Protocol Stop: 02/15/18 23:50 Last Admin: 02/15/18 23:35 Dose: 200 mls/hr eMAR Start Stop Document 02/15/18 23:35 AD (Rec: 02/15/18 23:35 AD [id number]) Intravenous Solution Start Date 02/15/18 Start Time 23:35 Ondansetron HCl (Zofran Inj) 4 mg IVP ONCE ONE Stop: 02/15/18 23:04 Last Admin: 02/15/18 23:10 Dose: 4 mg IVP Administration Document 02/15/18 23:10 AD (Rec: 02/15/18 23:10 AD [id number]) Charges for Administration # of IVP Administrations 1 Potassium Chloride (K-Dur 20 Meq Er Tab) 40 meq PO STAT STA Stop: 02/15/18 21:56 Last Admin: 02/15/18 22:49 Dose: 40 meq - Scribe Statement The provider has reviewed the documentation as recorded by the Scribdolly Hernández All medical record entries made by the Scribe were at my direction and personally dictated by me. I have reviewed the chart and agree that the record accurately reflects my personal performance of the history, physical exam, medical decision making, and the department course for this patient. I have also personally directed, reviewed, and agree with the discharge instructions and disposition. Disposition/Present on Arrival - Present on Arrival Any Indicators Present on Arrival: No History of DVT/PE: No History of Uncontrolled Diabetes: No Urinary Catheter: No History of Decub. Ulcer: No History Surgical Site Infection Following: None - Disposition Have Diagnosis and Disposition been Completed?: Yes Diagnosis: Cellulitis, G-tube site cellulitis Disposition: HOSPITALIZED Disposition Time: 00:20 Condition: STABLE Discharge Instructions (ExitCare): Cellulitis (ED) Referrals: Mary Schmitt MD [Primary Care Provider] - Follow up with primary Forms: [employer] (Spanish)
[2018-02-15 21:24] LABS: HEMOGLOBIN 9.5 g/dL (14.0-18.0); MEAN CELL VOLUME 87.7 fl (80.0-105.0); MEAN CORPUSCULAR HEMOGLOBIN 29.2 pg (25.0-35.0); MEAN CORPUSCULAR HGB CONC 33.3 g/dl (31.0-37.0); MEAN PLATELET VOLUME 10.8 fl (7.0-11.0); RBC 3.25 10^6/uL (3.5-6.1); RED CELL DISTRIBUTION WIDTH 17.4 % (11.5-14.5); WHITE BLOOD COUNT 11.8 10^3/ul (4.5-11.0)
[2018-02-15] MEDS: Sodium Chloride 0.9% 1,000 ML IV SCH (21:28)
[2018-02-15 21:30] LABS: ALB/GLOB RATIO 0.6 (1.1-1.8); ALT/SGPT 146 U/L (7-56); AST/SGOT 194 U/L (17-59); BLOOD UREA NITROGEN 42 mg/dL (7-21)
[2018-02-15 22:38] LABS: VENOUS BLOOD GAS BASE EXCESS 13.5 mmol/L (0.0-2.0); VENOUS BLOOD GAS PO2 42 mm/Hg (30-55); VENOUS BLOOD PH 7.39 (7.32-7.43)
[2018-02-15] MEDS: Potassium Chloride 20 mEq ER Tab PO STA (22:49)
[2018-02-15] MEDS ORDERED: HYDROmorphone 0.5 mg/0.5 ml ISec IVP STA (22:53)
[2018-02-15 23:10] LABS: ALBUMIN 3.1 g/dL (3.0-4.8); CALCIUM 9.5 mg/dL (8.4-10.5); GFR AFRICAN-AMERICAN > 60; GFR NON-AFRICAN AMERICAN 56
[2018-02-15] MEDS ORDERED: Piperacillin/Tazobact 3.375 gm 100 ML IV STA (23:21)
[2018-02-15] MEDS ORDERED: Vancomycin 1gm in NS 250ml 1 GM/250 ML BAG IVPB STA (23:29)
--- NOTE | 2018-02-16 01:28 | CP.PCM.HP ---
History of Present Illness - History of Present Illness History of Present Illness: Patient is a 62 year old male with a past medical history of carcinoid tumor and chronic bowel obstruction s/p subtotal colectomy with rectosigmoid stump, ileostomy, PEG tube, chronic pain syndrome with narcotic dependence, portacath, TPN, CKD, right nephrostomy tube, and anemia, who presents to the ED after him PEG tube fell out. Patient says the visiting nurse was there cleaning it and it slipped out while she was cleaning it. Patient admits to some pain in that area that radiates around to his back but admits that this is not new and he has had the pain ever since it was inserted. However, patient does admit to new onset redness in the area of insertion of his PEG tube. Patient says it started 2 weeks ago when a new nurse started cleaning it. He denies any associated fevers , chills, purulent discharge from the insertion site, warmth of the surrounding skin. Patient's is present at bedside and says he sees Dr. Rose for his PEG tube and asked if he could be called tomorrow ([phone]) in order to get more details. While in the ED patient says he had some nausea and one episode of vomiting which has since resolved. Denies headache, dizziness, chest pain, SOB, palpitations, diarrhea, constipation, and lower extremity pain and swelling. PMH: as above Meds: Patient unsure of full med list and will need to call [facility] on [employer] for full med list/verification Allergies: morphine (rash) PSH: Ilelostomy (2015), nephrostomy, subtotal colectomy with rectosigmoid stump , PEG tube FH: mother with HTN SH: denies tobacco, alcohol, and drug use Present on Admission - Present on Admission Any Indicators Present on Admission: No Review of Systems - Review of Systems All systems: reviewed and no additional remarkable complaints except (as per HPI ) Past Patient History - Infectious Disease Hx of Infectious Diseases: None - Tetanus Immunizations Tetanus Immunization: Unknown - Past Social History Smoking Status: Never Smoked - CARDIAC Hx Cardiac Disorders: No - PULMONARY Hx Respiratory Disorders: No - NEUROLOGICAL Hx Neurological Disorder: No - HEENT Hx HEENT Problems: No - RENAL Hx Chronic Kidney Disease: Yes Other/Comment: HAS UROSTOMY - ENDOCRINE/METABOLIC Hx Endocrine Disorders: No - HEMATOLOGICAL/ONCOLOGICAL Hx Blood Transfusions: Yes Hx Blood Transfusion Reaction: No - INTEGUMENTARY Hx Dermatological Problems: No - MUSCULOSKELETAL/RHEUMATOLOGICAL Hx Falls: Yes - GASTROINTESTINAL Hx Gastrointestinal Disorders: Yes Hx Ileostomy: Yes Other/Comment: L colostomy. G tube - GENITOURINARY/GYNECOLOGICAL Hx Genitourinary Disorders: Yes Other/Comment: HAS UROSTOMY - PSYCHIATRIC Hx Psychophysiologic Disorder: No Hx Substance Use: No - SURGICAL HISTORY Other/Comment: COLOSTOMY, PEG TUBE, UROSTOMY - ANESTHESIA Hx Anesthesia Reactions: No Hx Malignant Hyperthermia: No Meds Allergies/Adverse Reactions: Allergies Allergy/AdvReac Type Severity Reaction Status Date / Time morphine Allergy ANAPHYLAXIS Verified 12/08/17 19:18 Physical Exam - Constitutional Appears: Non-toxic, No Acute Distress - Head Exam Head Exam: ATRAUMATIC, NORMAL INSPECTION, NORMOCEPHALIC - Eye Exam Eye Exam: EOMI, PERRL, Scleral icterus - ENT Exam ENT Exam: Mucous Membranes Moist - Respiratory Exam Respiratory Exam: Clear to Auscultation Bilateral, NORMAL BREATHING PATTERN. absent: Rales, Rhonchi, Wheezes - Cardiovascular Exam Cardiovascular Exam: RRR, +S1, +S2. absent: Diastolic murmur, Gallop, Rubs, Systolic Murmur - GI/Abdominal Exam GI & Abdominal Exam: Guarding (voluntary), Soft, Tenderness (generalized tenderness worse around the PEG tube insertion site). absent: Distended Additional comments: Erythema surrounding the PEG tube insertion site; no purulent discharge; PEG tube not in place and hole closed off without ability to place temporary Cardona - Extremities Exam Extremities exam: Positive for: normal capillary refill, normal inspection, pedal pulses present. Negative for: calf tenderness, pedal edema - Neurological Exam Neurological exam: Alert, Oriented x3 - Psychiatric Exam Psychiatric exam: Normal Affect, Normal Mood - Skin Skin Exam: Dry, Intact, Normal Color, Warm Results - Vital Signs Recent Vital Signs: Last Vital Signs Temp 98.8 F 02/15/18 20:54 Pulse 115 H 02/15/18 20:54 Resp 18 02/15/18 20:54 BP 116/66 02/15/18 20:54 Pulse Ox 97 02/15/18 20:54 - Labs Result Diagrams: 02/15/18 21:06 02/15/18 21:06 Assessment & Plan - Assessment and Plan (Free Text) Assessment: Patient is a 62 year old male with a past medical history of carcinoid tumor and chronic bowel obstruction s/p subtotal colectomy with rectosigmoid stump, ileostomy, PEG tube, chronic pain syndrome with narcotic dependence, portacath, TPN, CKD, right nephrostomy tube, and anemia, who presents after PEG tube fell out Plan: PEG tube displacement * Attempted insertion of Cardona catheter in its place unsuccessfully - likely too long since it fell out * Dr. Olivo consulted - help appreciated * NPO Erythema of PEG tube insertion site, r/o cellulitis * Leukocytosis at 11.8 * Afebrile * Dr. Ye consulted - help appreciated * Vanc 1 g daily * Zosyn 3.375 g Q6H * f/u blood and wound cultures Anemia * stable - will monitor Transaminitis with hyperbilirubinemia * GI consulted as above * Will follow up am labs Hypokalemia * replaced in the ED * Monitor with am labs and replete as needed History of CKD * BUN and Cr 42 and 1.3 * Pre renal azotemia * Will continue with IV fluid hydration with NS @ 100 cc/h History of hypotension * BP stable on admission * continue home midodrine History of Carcinoid tumor * continue home pain management regimen with fentanyl patch 100 mcg/h Q72h * Continue home zofran prn Prophylaxis * Protonix as he takes at home * SCDs * Hold chemical DVT prophylaxis in anticipation for procedure
[2018-02-16] MEDS ORDERED: HYDROmorphone 0.5 mg/0.5 ml ISec IVP ONE (02:21)
[2018-02-16] MEDS: Sodium Chloride 0.9% 1,000 ML IV SCH (02:33)
[2018-02-16 05:40] VITALS: BMI 18.8
[2018-02-16] MEDS ORDERED: Piperacillin/Tazobact 3.375 gm 100 ML IVPB SCH ×2 (06:00→12:00)
[2018-02-16] MEDS ORDERED: Pantoprazole 40 mg EC Tab PO SCH (06:00)
[2018-02-16] MEDS ORDERED: Vancomycin 1gm in NS 250ml 1 GM/250 ML BAG IVPB SCH (10:00)
[2018-02-16 10:03] LABS: BASO # 0.06 K/mm3 (0.0-2.0); BASO % 0.5 % (0.0-3.0); EOS # 0.3 (0.0-0.7); EOS % 2.1 % (1.5-5.0); GRAN # 8.66 (1.4-6.5); GRAN % 71.3 % (50.0-68.0); HEMOGLOBIN 7.9 g/dL (14.0-18.0); LYMPH # 1.3 (1.2-3.4); LYMPH % 10.5 % (22.0-35.0); MEAN CELL VOLUME 88.1 fl (80.0-105.0); MEAN CORPUSCULAR HEMOGLOBIN 29.3 pg (25.0-35.0); MEAN CORPUSCULAR HGB CONC 33.2 g/dl (31.0-37.0); MEAN PLATELET VOLUME 10.4 fl (7.0-11.0); MONO # 1.9 (0.1-0.6); MONO % 15.6 % (1.0-6.0); RBC 2.7 10^6/uL (3.5-6.1); RED CELL DISTRIBUTION WIDTH 17.6 % (11.5-14.5); WHITE BLOOD COUNT 12.2 10^3/ul (4.5-11.0)
[2018-02-16] MEDS: HYDROmorphone 0.5 mg/0.5 ml ISec IVP PRN ×3 (10:13→18:35)
[2018-02-16] MEDS: Silver Sulfadiazine 1% Cream (25 gm) TP SCH ×2 (10:13→18:37)
[2018-02-16 10:14] LABS: ALB/GLOB RATIO 0.6 (1.1-1.8); ALBUMIN 2.6 g/dL (3.0-4.8); ALT/SGPT 140 U/L (7-56); AST/SGOT 160 U/L (17-59); BLOOD UREA NITROGEN 33 mg/dL (7-21); CALCIUM 8.7 mg/dL (8.4-10.5); GFR AFRICAN-AMERICAN > 60; GFR NON-AFRICAN AMERICAN > 60
[2018-02-16] MEDS: Potassium Chloride 20 mEq ER Tab PO STA (13:42)
[2018-02-16] MEDS ORDERED: Linezolid 600 mg in D5W 300 ml 600 MG/300 ML BAG IVPB SCH (16:14)
[2018-02-16] MEDS ORDERED: Iodixanol 320 MG/ML 100 ML BOTTLE IV ONE (16:15)
[2018-02-16] MEDS ORDERED: Midazolam 2 MG/2 ML VIAL ONE (16:15)
[2018-02-16] MEDS ORDERED: Lidocaine 2% Inj (20ml) ONE (16:16)
--- NOTE | 2018-02-16 16:21 | CP.PCM.CON ---
History of Present Illness - History of Present Illness History of Present Illness: 62 year old male with PMH of carcinoma of GI tract S/P colectomy and ileostomy, S/P neprhostomy tube placement on the right 2 years ago, history of G-tube placement, chronic renal failure came in to [facility] because his PEG tube fell out. It was hurting before it came out and he feels better after it did. He is not sure how it fell out. He denies discharge from the PEG site but states that it has some surrounding tenderness and erythema. He denies fever or chills, no nausea or vomiting, no chest pain, no headache or dizziness, no cough or rhinorrhea, no diarrhea, no dysuria. Infectious diseases consult is requested to further evaluate and manage. Review of Systems - Review of Systems All systems: reviewed and no additional remarkable complaints except (as per HPI ) Past Patient History - Infectious Disease Hx of Infectious Diseases: None - Tetanus Immunizations Tetanus Immunization: Unknown - Past Social History Smoking Status: Never Smoked - CARDIAC Hx Cardiac Disorders: No - PULMONARY Hx Respiratory Disorders: No - NEUROLOGICAL Hx Neurological Disorder: No - HEENT Hx HEENT Problems: No - RENAL Hx Chronic Kidney Disease: Yes Other/Comment: HAS UROSTOMY - ENDOCRINE/METABOLIC Hx Endocrine Disorders: No - HEMATOLOGICAL/ONCOLOGICAL Hx Blood Transfusions: Yes Hx Blood Transfusion Reaction: No - INTEGUMENTARY Hx Dermatological Problems: No - MUSCULOSKELETAL/RHEUMATOLOGICAL Hx Falls: Yes - GASTROINTESTINAL Hx Gastrointestinal Disorders: Yes Hx Ileostomy: Yes Other/Comment: L colostomy. G tube - GENITOURINARY/GYNECOLOGICAL Hx Genitourinary Disorders: Yes Other/Comment: HAS UROSTOMY - PSYCHIATRIC Hx Substance Use: No - SURGICAL HISTORY Other/Comment: COLOSTOMY, PEG TUBE, UROSTOMY - ANESTHESIA Hx Anesthesia Reactions: No Hx Malignant Hyperthermia: No Meds Allergies/Adverse Reactions: Allergies Allergy/AdvReac Type Severity Reaction Status Date / Time morphine Allergy ANAPHYLAXIS Verified 12/08/17 19:18 - Medications Medications: Current Medications Amitriptyline HCl (Elavil) 25 mg PO HS TAMMY Fentanyl (Duragesic) 1 patch TD Q72 TAMMY Gabapentin (Neurontin) 400 mg PO TID TAMMY PRN Reason: Protocol Sodium Chloride (Sodium Chloride 0.9%) 1,000 mls @ 100 mls/hr IV .Q10H TAMMY Last Admin: 02/16/18 02:33 Dose: 100 mls/hr Vancomycin HCl (Vancomycin 1gm) 1 gm in 250 mls @ 167 mls/hr IVPB DAILY TAMMY PRN Reason: Protocol Piperacillin Sod/Tazobactam Sod (Zosyn 3.375 In Ns 100ml) 100 mls @ 200 mls/hr IVPB Q6 TAMMY PRN Reason: Protocol Stop: 02/16/18 12:29 Metoprolol Tartrate (Lopressor) 12.5 mg PO BID TAMMY Midodrine (Proamatine) 10 mg PO TID [facility] Ondansetron HCl (Zofran Inj) 4 mg IVP Q6H PRN PRN Reason: Nausea/Vomiting Last Admin: 02/16/18 02:34 Dose: 4 mg Pantoprazole Sodium (Protonix Ec Tab) 40 mg PO 0600 [facility] Last Admin: 02/16/18 06:09 Dose: Not Given Physical Exam - Constitutional Appears: Chronically Ill - Head Exam Head Exam: NORMAL INSPECTION - ENT Exam ENT Exam: Mucous Membranes Moist - Neck Exam Neck exam: Negative for: Meningismus - Respiratory Exam Respiratory Exam: Decreased Breath Sounds - Cardiovascular Exam Cardiovascular Exam: +S1, +S2 - GI/Abdominal Exam GI & Abdominal Exam: Soft, Tenderness (around previous PEG site, with erythema, no pus or discharge) Results - Vital Signs Recent Vital Signs: Last Vital Signs Temp 98.2 F 02/16/18 04:19 Pulse 92 H 02/16/18 04:19 Resp 20 02/16/18 04:19 BP 107/73 02/16/18 04:19 Pulse Ox 100 02/16/18 01:55 - Labs Result Diagrams: 02/16/18 09:30 02/16/18 09:30 Assessment & Plan - Assessment and Plan (Free Text) Plan: Assessment R/O PEG site cellulitis history of severe sepsis with acute on chronic renal failure due to Klebsiella bacteremia probably from PICC line-related infection S/P removal, S/P replacement of nephrostomy tube, S/P placement of new right internal jugular vein central venous catheter/ right chest wall port history of sepsis S/P right sided pyelonephritis with associated cystitis, with persistent coagulase negative staph bacteremia probably port/ central line as the source S/P removal pneumobilia and elevated bilirubin, consider S/P cholecystectomy R/O choledocholethiasis carcinoma of GI tract S/P colectomy and ileostomy S/P nephrostomy tube placement on the right 2 years ago history of G-tube placement chronic renal failure Plan started Vancomycin and follow up blood cx and monitor clinical response overall prognosis is poor
[2018-02-16] MEDS: Vancomycin 1gm in NS 250ml 1 GM/250 ML BAG IVPB SCH (16:37)
--- NOTE | 2018-02-16 18:23 | CP.PCM.CON ---
History of Present Illness - History of Present Illness History of Present Illness: 62 year old male with a history of stage IV carcinoid tumor diagnosed 4 years ago s/p colectomy, ileostomy, right sided nephrostomy tube, on systemic therapy , presenting after his G tube fell out. The patient is known to me from prior hospitalization. He has a PEG tube with chronic bowel obstruction and is on TPN. He noted to some pain in his abdomen and around his PEG site but notes this is chronic. He had been receiving chemotherapy or Sandostatin LAR injections in [place] but this has been on hold. 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 Allergies: Morphine Review of systems: All remaining review of systems including HEENT, cardiovascular, respiratory, gastrointestinal, genitourinary, musculoskeletal, dermatologic, neurologic, and psychiatric are negative unless mentioned in the HPI. Past Patient History - Infectious Disease Hx of Infectious Diseases: None - Tetanus Immunizations Tetanus Immunization: Unknown - Past Social History Smoking Status: Never Smoked - CARDIAC Hx Cardiac Disorders: No - PULMONARY Hx Respiratory Disorders: No - NEUROLOGICAL Hx Neurological Disorder: No - HEENT Hx HEENT Problems: No - RENAL Hx Chronic Kidney Disease: Yes Other/Comment: HAS UROSTOMY - ENDOCRINE/METABOLIC Hx Endocrine Disorders: No - HEMATOLOGICAL/ONCOLOGICAL Hx Blood Transfusions: Yes Hx Blood Transfusion Reaction: No - INTEGUMENTARY Hx Dermatological Problems: No - MUSCULOSKELETAL/RHEUMATOLOGICAL Hx Falls: Yes - GASTROINTESTINAL Hx Gastrointestinal Disorders: Yes Hx Ileostomy: Yes Other/Comment: L colostomy. G tube - GENITOURINARY/GYNECOLOGICAL Hx Genitourinary Disorders: Yes Other/Comment: HAS UROSTOMY - PSYCHIATRIC Hx Substance Use: No - SURGICAL HISTORY Other/Comment: COLOSTOMY, PEG TUBE, UROSTOMY - ANESTHESIA Hx Anesthesia Reactions: No Hx Malignant Hyperthermia: No Meds Allergies/Adverse Reactions: Allergies Allergy/AdvReac Type Severity Reaction Status Date / Time morphine Allergy ANAPHYLAXIS Verified 12/08/17 19:18 - Medications Medications: Current Medications Amitriptyline HCl (Elavil) 25 mg PO HS TAMMY Fentanyl (Duragesic) 1 patch TD Q72 TAMMY Last Admin: 02/16/18 10:13 Dose: 1 patch Gabapentin (Neurontin) 400 mg PO TID [facility] PRN Reason: Protocol Last Admin: 02/16/18 13:43 Dose: 400 mg Hydromorphone HCl (Dilaudid) 0.5 mg IVP Q4H PRN PRN Reason: Pain, severe (8-10) Last Admin: 02/16/18 15:05 Dose: 0.5 mg Sodium Chloride (Sodium Chloride 0.9%) 1,000 mls @ 100 mls/hr IV .Q10H [facility] Last Admin: 02/16/18 02:33 Dose: 100 mls/hr Amino Acids/Electrolytes/Dextrose (Clinimix 5/20 % "E" (2000 Ml)) 2,000 mls @ 83 mls/hr IV .Q24H [facility] Fat Emulsion Intravenous (Intralipid 20%) 250 mls @ 21 mls/hr IV MWF@1800 [facility] Vancomycin HCl (Vancomycin 1gm) 1 gm in 250 mls @ 167 mls/hr IVPB Q12H [facility] PRN Reason: Protocol Metoclopramide HCl (Reglan) 5 mg IVP Q6H [facility] Last Admin: 02/16/18 16:43 Dose: Not Given Metoprolol Tartrate (Lopressor) 12.5 mg PO BID [facility] Last Admin: 02/16/18 10:11 Dose: 12.5 mg Midodrine (Proamatine) 10 mg PO TID [facility] Last Admin: 02/16/18 13:42 Dose: 10 mg Ondansetron HCl (Zofran Inj) 4 mg IVP Q6H PRN PRN Reason: Nausea/Vomiting Last Admin: 02/16/18 02:34 Dose: 4 mg Pantoprazole Sodium (Protonix Inj) 40 mg IVP Q12 [facility] Last Admin: 02/16/18 13:43 Dose: 40 mg Silver Sulfadiazine (Silvadene 1% 25 Gm) 0 gm TP BID [facility] Last Admin: 02/16/18 10:13 Dose: 25 gm Physical Exam - Head Exam Head Exam: ATRAUMATIC - Eye Exam Eye Exam: Normal appearance - ENT Exam ENT Exam: Mucous Membranes Dry - Respiratory Exam Respiratory Exam: NORMAL BREATHING PATTERN - Cardiovascular Exam Cardiovascular Exam: +S1, +S2 - GI/Abdominal Exam GI & Abdominal Exam: Normal Bowel Sounds - Extremities Exam Extremities exam: Positive for: pedal edema Results - Vital Signs Recent Vital Signs: Last Vital Signs Temp 98.7 F 02/16/18 17:57 Pulse 129 H 02/16/18 17:57 Resp 12 02/16/18 17:57 BP 103/67 02/16/18 17:57 Pulse Ox 98 02/16/18 17:31 - Labs Result Diagrams: 02/16/18 09:30 02/16/18 09:30 Labs: Laboratory Results - last 24 hr 02/16/18 02/16/18 02/16/18 09:30 09:30 09:30 WBC 12.2 H RBC 2.70 L Hgb 7.9 L Hct 23.8 L MCV 88.1 MCH 29.3 MCHC 33.2 RDW 17.6 H Plt Count 428 MPV 10.4 Gran % 71.3 H Lymph % (Auto) 10.5 L Elmore % (Auto) 15.6 H Eos % (Auto) 2.1 Baso % (Auto) 0.5 Gran # 8.66 H Lymph # (Auto) 1.3 Elmore # (Auto) 1.9 H Eos # (Auto) 0.3 Baso # (Auto) 0.06 Sodium 145 Potassium 3.0 L Chloride 99 Carbon Dioxide 37 H Anion Gap 12 BUN 33 H Creatinine 1.1 Est GFR ( Amer) > 60 Est GFR (Non-Af Amer) > 60 Random Glucose 100 Calcium 8.7 Phosphorus 3.6 Magnesium 2.2 Total Bilirubin 8.7 H AST 160 H ALT 140 H Alkaline Phosphatase 404 H D Total Protein 7.1 Albumin 2.6 L Globulin 4.6 Albumin/Globulin Ratio 0.6 L Procalcitonin 0.55 H Blood Type Antibody Screen Crossmatch BBK History Checked 02/16/18 10:50 WBC RBC Hgb Hct MCV MCH MCHC RDW Plt Count MPV Gran % Lymph % (Auto) Elmore % (Auto) Eos % (Auto) Baso % (Auto) Gran # Lymph # (Auto) Elmore # (Auto) Eos # (Auto) Baso # (Auto) Sodium Potassium Chloride Carbon Dioxide Anion Gap BUN Creatinine Est GFR ( Amer) Est GFR (Non-Af Amer) Random Glucose Calcium Phosphorus Magnesium Total Bilirubin AST ALT Alkaline Phosphatase Total Protein Albumin Globulin Albumin/Globulin Ratio Procalcitonin Blood Type O POSITIVE Antibody Screen Negative Crossmatch See Detail BBK History Checked Patient has bt Assessment & Plan (1) Anemia Assessment and Plan: prior work up showed anemia of chronic disease from malignancy 2U PRBC today repeat CBC in AM Status: Acute (2) Leukocytosis Assessment and Plan: on antibiotics Status: Acute (3) Carcinoid tumor Assessment and Plan: stage IV chemotherapy on hold at [facility] palliative care evaluation DNR/DNI Thank you for this interesting consult. Status: Acute
--- NOTE | 2018-02-16 19:04 | VASCULAR ---
PROCEDURE: 1. Gastrostomy tube replacement HISTORY: Gastrostomy tube inadvertently fell out. Metastatic carcinoid tumor with small-bowel obstruction. Gastrostomy tube was utilized for drainage. PHYSICIAN(S): Tim Calhoun MD. TECHNIQUE: The relative risks and indications of the procedure were explained to the patient and consent obtained. The patient was placed prone on the arteriogram table and the sinus tract from the previous gastrostomy tube prepped and draped usual sterile fashion. Conscious sedation monitoring were provided throughout the procedure by a nurse. A small dilator was placed in the sinus tract. Contrast was injected. A small amount of contrast tract stomach. A 0.035 glidewire was advanced through the tract into the stomach. The dilator was advanced. Position was confirmed with injection of contrast. 0.035 Amplatz support wire was placed. The soft tissue tract was dilated with 10 mm balloon. An 18 Armenian MARBIN gastrostomy tube was advanced over the guidewire into the stomach. The balloon was inflated with 8 cc of very dilute contrast. The catheter was retracted against the anterior abdominal wall. The patient tolerated the procedure well. FINDINGS: The stomach is distended with fluid and debris. The gastrostomy tube was success replaced in the body of the stomach P IMPRESSION: 1.Successful replacement of the patient's gastrostomy tube. An 18 Armenian MARBIN tube was placed in the body of the stomach
--- NOTE | 2018-02-16 21:37 | CON ---
DATE: 02/16/2018 REQUESTING PHYSICIAN: Sergio Wagner MD HISTORY OF PRESENT ILLNESS: This is a 62-year-old male with multiple recent hospitalizations, just recently discharged from [facility] to an LTAC facility after a long hospitalization here at [facility] with known history of metastatic intra-abdominal carcinoid, chronic abdominal pain, chronic bowel obstruction from carcinoid with a venting gastrostomy tube, right hydronephrosis status post right percutaneous nephrostomy tube, comes to the hospital with abdominal pain and dislodgement of his PEG tube. He had one episode of vomiting yesterday. He feels nauseous now. He denies any fevers or chills. He was just recently discharged from [facility] several weeks ago. PAST MEDICAL HISTORY: As above. Again, he has a history of metastatic carcinoid of the peritoneum, chronic abdominal pain, chronic bowel obstruction status post ileostomy, venting PEG tube, chronic right hydronephrosis, chronic anemia. SOCIAL HISTORY: He denies cigarette smoking or alcohol use. FAMILY HISTORY: Noncontributory. PAST SURGICAL HISTORY: Notable for colon resection with ileostomy, venting gastrostomy tube, right percutaneous nephrostomy tube placement. MEDICATIONS AT HOME: Include fentanyl patch, pantoprazole, Neurontin, Elavil, Zofran, Bactroban ointment, ProAmatine, loperamide and acetaminophen. PHYSICAL EXAMINATION GENERAL: Middle-aged male appearing chronically older than stated age. VITAL SIGNS: Reveal temperature of 97.8, blood pressure 114/71, heart rate 94. HEENT: Reveals sclerae to be white. Oral mucosa is dry. NECK: Supple. CHEST: Reveals distant breath sounds. HEART: Reveals regular rate and rhythm. ABDOMEN: Shows multiple scars. He has a right nephrostomy tube. He also has a left lower quadrant ileostomy. He has a stoma in the area of his prior PEG site, it is closed. There is mild diffuse tenderness. No rebound. EXTREMITIES: Show no edema. LABORATORY DATA: Reveals white blood cell count 12.2, hemoglobin 7.9. Chemistries reveal BUN 42, creatinine 1.3, total bilirubin 10.7, AST 194, ALT 146, alkaline phosphatase of 506. IMPRESSION: 1. A 62-year-old male with metastatic intra-abdominal carcinoid with chronic abdominal pain, chronic intestinal obstruction with venting gastrostomy tube that fell out. There is mild redness around the percutaneous endoscopic gastrostomy site, which is closed. 2. Anemia secondary to metastatic carcinoid. His long-term prognosis is extremely poor. The patient is seen by Palliative Care in the past. RECOMMENDATIONS: 1. I will ask Interventional Radiology, Dr. Tim Calhoun, to replace the PEG tube that has fallen out. 2. Continue palliative care. 3. Local treatment including Azulfidine to the area of mild cellulitis around his PEG site. Ezequiel Olivo MD MTDD
[2018-02-17] MEDS: Sodium Chloride 0.9% 1,000 ML IV SCH (01:29)
[2018-02-17 03:07] VITALS: RESP 20
[2018-02-17] MEDS: HYDROmorphone 0.5 mg/0.5 ml ISec IVP PRN ×3 (03:08→13:50)
[2018-02-17] MEDS: Vancomycin 1gm in NS 250ml 1 GM/250 ML BAG IVPB SCH (03:19)
[2018-02-17 06:28] LABS: BASO # 0.03 K/mm3 (0.0-2.0); BASO % 0.2 % (0.0-3.0); EOS # 0.1 (0.0-0.7); EOS % 0.7 % (1.5-5.0); GRAN % 85.1 % (50.0-68.0); HEMOGLOBIN 9.3 g/dL (14.0-18.0); MEAN CELL VOLUME 90.6 fl (80.0-105.0); MEAN CORPUSCULAR HEMOGLOBIN 29.2 pg (25.0-35.0); MEAN CORPUSCULAR HGB CONC 32.3 g/dl (31.0-37.0); MEAN PLATELET VOLUME 11.2 fl (7.0-11.0); MONO # 1.3 (0.1-0.6); RBC 3.18 10^6/uL (3.5-6.1); RED CELL DISTRIBUTION WIDTH 16.9 % (11.5-14.5); WHITE BLOOD COUNT 16.5 10^3/ul (4.5-11.0)
[2018-02-17 06:39] LABS: ALB/GLOB RATIO 0.5 (1.1-1.8); ALBUMIN 2.5 g/dL (3.0-4.8); ALT/SGPT 136 U/L (7-56); AST/SGOT 149 U/L (17-59); BILIRUBIN,DIRECT 6.9 mg/dL (0.0-0.4); BLOOD UREA NITROGEN 28 mg/dL (7-21); CALCIUM 8.5 mg/dL (8.4-10.5); GFR AFRICAN-AMERICAN > 60; GFR NON-AFRICAN AMERICAN > 60
[2018-02-17 07:30] VITALS: BP 107/69; PULSE 91; TEMP 98.1; O2SAT 100
--- NOTE | 2018-02-17 08:13 | CP.PCM.PN ---
Subjective - Date & Time of Evaluation Date of Evaluation: 02/17/18 Time of Evaluation: 07:45 - Subjective Subjective: (covering for Dr. Wagner) Patient is seen this morning in room 364 bed 2. He says that that PEG tube was placed yesterday. He has no new complaints. Objective - Vital Signs/Intake and Output Vital Signs (last 24 hours): Temp Pulse Resp BP Pulse Ox 98.1 F 91 H 20 107/69 100 02/17/18 06:00 02/17/18 06:00 02/17/18 06:00 02/17/18 06:00 02/17/18 06:00 Intake and Output: 02/17/18 02/17/18 06:59 18:59 Intake Total 280 Output Total 525 Balance -245 - Medications Medications: Current Medications Amitriptyline HCl (Elavil) 25 mg PO HS TAMMY Last Admin: 02/16/18 21:47 Dose: 25 mg Fentanyl (Duragesic) 1 patch TD Q72 TAMMY Last Admin: 02/16/18 10:13 Dose: 1 patch Gabapentin (Neurontin) 400 mg PO TID [facility]MY PRN Reason: Protocol Last Admin: 02/16/18 18:35 Dose: 400 mg Hydromorphone HCl (Dilaudid) 0.5 mg IVP Q4H PRN PRN Reason: Pain, severe (8-10) Last Admin: 02/17/18 07:52 Dose: 0.5 mg Sodium Chloride (Sodium Chloride 0.9%) 1,000 mls @ 100 mls/hr IV .Q10H [facility] Last Admin: 02/17/18 01:29 Dose: 100 mls/hr Amino Acids/Electrolytes/Dextrose (Clinimix 5/20 % "E" (2000 Ml)) 2,000 mls @ 83 mls/hr IV .Q24H [facility]MY Last Admin: 02/16/18 18:38 Dose: 83 mls/hr Fat Emulsion Intravenous (Intralipid 20%) 250 mls @ 21 mls/hr IV MWF@1800 [facility] Vancomycin HCl (Vancomycin 1gm) 1 gm in 250 mls @ 167 mls/hr IVPB Q12H [facility] PRN Reason: Protocol Last Admin: 02/17/18 03:19 Dose: 167 mls/hr Metoclopramide HCl (Reglan) 5 mg IVP Q6H [facility] Last Admin: 02/17/18 05:27 Dose: Not Given Metoprolol Tartrate (Lopressor) 12.5 mg PO BID [facility] Last Admin: 02/16/18 18:35 Dose: 12.5 mg Midodrine (Proamatine) 10 mg PO TID [facility] Last Admin: 02/16/18 18:35 Dose: 10 mg Ondansetron HCl (Zofran Inj) 4 mg IVP Q6H PRN PRN Reason: Nausea/Vomiting Last Admin: 02/17/18 03:08 Dose: 4 mg Pantoprazole Sodium (Protonix Inj) 40 mg IVP Q12 [facility] Last Admin: 02/16/18 21:46 Dose: 40 mg Silver Sulfadiazine (Silvadene 1% 25 Gm) 0 gm TP BID [facility] Last Admin: 02/16/18 18:37 Dose: Not Given - Labs Labs: 02/17/18 05:55 02/17/18 05:55 - Constitutional Appears: No Acute Distress - Head Exam Head Exam: ATRAUMATIC, NORMOCEPHALIC - Respiratory Exam Respiratory Exam: Decreased Breath Sounds - Cardiovascular Exam Cardiovascular Exam: +S1, +S2 - GI/Abdominal Exam Additional comments: + right nephrostomy, L ileostomy, s/p colectomy - Extremities Exam Extremities Exam: Normal Inspection - Neurological Exam Neurological Exam: Alert, Awake, Oriented x3 Assessment and Plan - Assessment and Plan (Free Text) Assessment: PEG site cellulitis Stage IV carcinoid s/p colectomy L ileostomy Right nephrostomy Anemia of malignancy Plan: Patient has been started on antibiotics as per infectious disease. Blood cultures negative so far. Wound culture pending. Patient's hemoglobin is 9.3 after 2 units transfused yesterday. continue pain control. PEG tube was replaced yesterday by Dr. Jade Calhoun.
--- NOTE | 2018-02-17 08:28 | HP ---
ADDENDUM The patient presented to the [facility] Emergency Room in the late night hours, was brought as a walk-in. According to the patient, patient's gastrostomy tube came out without any adverse action. When arrived in the emergency room, the patient was found to have cellulitis and some discharge around the gastrostomy tube. The patient's stated that the patient had some drainage and discharge from the gastrostomy tube site. A 13-system review was done, pertinent positive and negative dictated above. The patient was examined. The patient's vitals and diagnostic data was reviewed. Please refer to the history, physical examination by the claim review medical director for further details. The patient was seen and examined. The patient's diagnostic data was reviewed. IMPRESSION AND PLAN: 1. Gastrostomy tube malfunction and status post gastrostomy tube dislodgement. 2. Advanced metastatic gastrointestinal carcinoid. 3. Questionable gastrostomy tube site cellulitis. 4. Normocytic anemia with decreasing hemoglobin/hematocrit. 5. Severe transaminitis with hyperbilirubinemia. 6. Hypokalemia. 7. Chronic kidney disease, stage III. 8. Chronic hypotension. 9. Cachexia of malignancy. 10. Chronic pain syndrome of malignancy. 11. Tachycardia. 12. Feeding dysfunction with chronic hyperalimentation dependent. 13. Leukocytosis with granulocytosis. 14. Prerenal kidney injury. 15. Mild Hyperbilirubinemia. 16. Hyperprocalcitoninemia. 17. Subtotal colectomy. 18. O+ blood type. 19. Status post right-sided percutaneous nephrostomy. 20. History of advanced stage IV carcinoid tumor with bowel obstruction. 21. Status post colectomy. 22. Ileostomy. 23. Chronic total parenteral nutrition dependent malnutrition and feeding dysfunction. 24. Severe deconditioning and gait dysfunction. 25. 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 26. Hyperbilirubinemia with obstructive jaundice. 27. Status post left upper extremity PICC line placement. The patient at this time will be admitted with above therapeutic intervention. At present, the patient has been ordered repeat labs. The patient has been ordered transfusion of the PRBC. The patient is started on IV TPN, Dilaudid 0.5 mg IV every 4 hours p.r.n., Duragesic patch 100 mcg daily, Elavil 25 mg at bedtime. The patient is on Lopressor 12.5 twice a day, Neurontin 400 three times a day, ProAmatine 10 mg three times a day, Protonix 40 mg IV every 12 hours, Reglan 5 mg IV every 6 hours, Silvadene cream to the affected area, IV 0.9 normal saline at 100 mL an hour, vancomycin 1 g IV every 12 hours, Zofran 4 IV every 4 hours. The patient's code status is DNR/DNI. The patient's prognosis is guarded to poor. The patient's further management will be dependent upon the patient's clinical condition, hemodynamic status and as per the patient's response to therapeutic intervention as per the patient's diagnostic test results and as per recommendation by all the physician involved in the care of the patient. Dictated and electronically signed, not read. Sergio Wagner MD
[2018-02-17] MEDS: Silver Sulfadiazine 1% Cream (25 gm) TP SCH (09:16)
--- NOTE | 2018-02-17 11:21 | PQF MALNUT ---
This form is a permanent part of the medical record Clarification of your documentation is requested to better reflect the severity of illness and intensity of treatment of your patient. Indicators present Dietary consult identifies pt as High risk. Gastrostomy tube, BMI 18, Serum albumin - 2.5, Chronic TPN dependent malnutrition. Please specify type & severity of malnutrition POA. [x] Cachexia (due to severe malnutrition) [x] Albumin < 2.8 (2.5) [] Decreased Pre-albumin [x] Dietary Consult [x] Provider documentation reflects BMI of: []_18 [] Low serum proteins [] Documented weight loss [x] Inability to consume adequate caloric intake [] Anorexic [] Other: [] Location in the medical record that reflects the above clinical findings: [] H& P & Dietary consult Treatment Provided: [x] TPN- 83/hr w/ lipids 3x week PHYSICIAN'S RESPONSE Based on your medical judgment of the clinical indicators outlined above, are you treating this patient for a known or suspected: Type of Malnutrition Severity [] Mild [] Moderate [] Severe [] Protein calorie [] Mild [] Moderate [] severe [] Other, please indicate: []_ [] If Unable to Determine, please check the box, sign and date. Present On Admission (POA) Indicator: [] Present at the time of admission [] Not present at the time of admission [] Clinically Undetermined In responding to this query, please exercise your independent professional judgment. The fact that a question is asked does not imply that any particular answer is desired or expected. Thank you for your clarification on this documentation. If you have any questions please call:[ ][phone] * Thank you, [ ] Loyda Jarvis RN CDS brownell operator Malnutrition Malnutrition results from an imbalance between the body's intake of nutrients and the body's use of nutrients to fuel energy expenditure. Malnutrition may be described as mild, moderate or severe. There are variations in clinical indicators, lab values and risk factors with each type and degree. When reviewing the nutritional status of the client, the entire clinical picture should be assessed and taken into consideration rather than a focus on a single laboratory value. Mild Malnutrition: patient's weight is noted at 85-95% of normal body weight; BMI 18-18.9; serum albumin 3.0-3.4; total lymphocyte count [id number]. Moderate Malnutrition: patient's weight is noted at 75-85% of normal body weight ; BMI 16-17.9; serum albumin 2.4-3.0; total lymphocyte count 800-1500. Severe Malnutrition: patient's weight is noted at <75% of normal body weight, BMI <16, serum albumin <2.4, total lymphocyte count <800, abnormally low VLDL/ LDL levels, creatinine <0.6, BUN <8, cholesterol <160. Other clinical indicators include: loss of subq fat, muscle wasting of the extremities, skin lesions, decubitus ulcers, hair loss, lethargy, constipation, decreased pulse/ respiratory rates, relative hypotension, hepatomegaly d/t fat infiltration, poor wound healing.~~~~~~ Risk: poor intake d/t food avoidance or NPO status for >7 days, protracted nutritional losses from malabsorption states, hypermetabolic state such as sepsis, prolonged fever, extensive trauma or waddell, alcohol/drug abuse, advanced age, CKD, trouble chewing or swallowing, some medications, depression/ social isolation, special diets such as low protein Treatment: dietary consultation, protein-calorie dietary supplementation, daily weights, PEG tube, psychiatric consultation, appetite stimulants (Megace). [employer] Principles of Internal Medicine, 17th edition, chapters 9, 72 and 234. The [employer] Nutritional Support Core Curriculum, 2007 MTDD
--- NOTE | 2018-02-17 12:21 | CP.PCM.PN ---
Subjective - Date & Time of Evaluation Date of Evaluation: 02/17/18 Time of Evaluation: 10:55 - Subjective Subjective: PEG tube replaced, no fevers, not in distress. Abdominal pain is improving. Objective - Vital Signs/Intake and Output Vital Signs (last 24 hours): Temp Pulse Resp BP Pulse Ox 98.1 F 91 H 20 107/69 100 02/17/18 06:00 02/17/18 06:00 02/17/18 06:00 02/17/18 06:00 02/17/18 06:00 Intake and Output: 02/17/18 02/17/18 06:59 18:59 Intake Total 280 Output Total 525 Balance -245 - Medications Medications: Current Medications Amitriptyline HCl (Elavil) 25 mg PO HS [facility] Last Admin: 02/16/18 21:47 Dose: 25 mg Fentanyl (Duragesic) 1 patch TD Q72 [facility] Last Admin: 02/16/18 10:13 Dose: 1 patch Gabapentin (Neurontin) 400 mg PO TID [facility]MY PRN Reason: Protocol Last Admin: 02/16/18 18:35 Dose: 400 mg Hydromorphone HCl (Dilaudid) 0.5 mg IVP Q4H PRN PRN Reason: Pain, severe (8-10) Last Admin: 02/17/18 07:52 Dose: 0.5 mg Sodium Chloride (Sodium Chloride 0.9%) 1,000 mls @ 100 mls/hr IV .Q10H [facility] Last Admin: 02/17/18 01:29 Dose: 100 mls/hr Amino Acids/Electrolytes/Dextrose (Clinimix 5/20 % "E" (2000 Ml)) 2,000 mls @ 83 mls/hr IV .Q24H [facility] Last Admin: 02/16/18 18:38 Dose: 83 mls/hr Fat Emulsion Intravenous (Intralipid 20%) 250 mls @ 21 mls/hr IV [id number]@1800 TAMMY Vancomycin HCl (Vancomycin 1gm) 1 gm in 250 mls @ 167 mls/hr IVPB Q12H [facility] PRN Reason: Protocol Last Admin: 02/17/18 03:19 Dose: 167 mls/hr Metoclopramide HCl (Reglan) 5 mg IVP Q6H [facility] Last Admin: 02/17/18 05:27 Dose: Not Given Metoprolol Tartrate (Lopressor) 12.5 mg PO BID [facility] Last Admin: 02/16/18 18:35 Dose: 12.5 mg Midodrine (Proamatine) 10 mg PO TID [facility] Last Admin: 02/16/18 18:35 Dose: 10 mg Ondansetron HCl (Zofran Inj) 4 mg IVP Q6H PRN PRN Reason: Nausea/Vomiting Last Admin: 02/17/18 03:08 Dose: 4 mg Pantoprazole Sodium (Protonix Inj) 40 mg IVP Q12 [facility] Last Admin: 02/16/18 21:46 Dose: 40 mg Silver Sulfadiazine (Silvadene 1% 25 Gm) 0 gm TP BID [facility] Last Admin: 02/16/18 18:37 Dose: Not Given - Labs Labs: 02/17/18 05:55 02/17/18 05:55 - Constitutional Appears: Cachectic, Chronically Ill - Head Exam Head Exam: NORMAL INSPECTION - ENT Exam ENT Exam: Mucous Membranes Moist - Neck Exam Neck Exam: absent: Lymphadenopathy, Meningismus - Respiratory Exam Respiratory Exam: Decreased Breath Sounds - Cardiovascular Exam Cardiovascular Exam: +S1, +S2 - GI/Abdominal Exam GI & Abdominal Exam: Soft. absent: Tenderness Additional comments: PEG site with some erythema but no outright tenderness Assessment and Plan - Assessment and Plan (Free Text) Plan: Assessment R/O PEG site cellulitis history of severe sepsis with acute on chronic renal failure due to Klebsiella bacteremia probably from PICC line-related infection S/P removal, S/P replacement of nephrostomy tube, S/P placement of new right internal jugular vein central venous catheter/ right chest wall port history of sepsis S/P right sided pyelonephritis with associated cystitis, with persistent coagulase negative staph bacteremia probably port/ central line as the source S/P removal pneumobilia and elevated bilirubin, consider S/P cholecystectomy R/O choledocholethiasis carcinoma of GI tract S/P colectomy and ileostomy S/P nephrostomy tube placement on the right 2 years ago history of G-tube placement chronic renal failure Plan was on Vancomycin but we have discontinued - cultures from the PEG site are probably colonization - will order Bactroban ointment overall prognosis is poor
[2018-02-17] MEDS ORDERED: Potassium Chloride 20 mEq ER Tab PO ONE (12:59)
[2018-02-17] MEDS ORDERED: Fat Emulsion 20% IV 250 ML IV SCH (18:00)
--- NOTE | 2018-02-19 23:12 | DS ---
HOSPITAL COURSE: This is a 62-year-old male with history of stage IV carcinoid, status post colectomy, left ileostomy, right nephrostomy, anemia of malignancy, who presented to the emergency room after his G-tube had come out. Apparently, a homemaker was taking care of the patient and the G-tube had fallen out. There was some erythema around the PEG site. Patient was admitted to the general medical floor. He was seen by Infectious Disease; started on IV antibiotics as well as local wound care. Dr. Tim Calhoun, Interventional Radiology, replaced the G-tube. He was seen by Dr. Wells, who is an oncologist. On admission, his hemoglobin was 9.5 and then dropped to 7.9. He was transfused 2 units packed red blood cells and his hemoglobin went up to 9.3. He was seen by GI and cleared for discharge. Patient was discharged home in stable condition, although his overall prognosis is poor. DISCHARGE DIAGNOSES: Percutaneous endoscopic gastrostomy tube cellulitis, carcinoid malignancy stage IV, history of colectomy, right nephrostomy, left ileostomy, anemia of chronic malignancy. DISCHARGE MEDICATIONS: Bactroban cream to be applied around the PEG tube three times a day, fentanyl patch every 72 hours, Neurontin three times a day, Protonix 40 mg daily, Zofran 4 mg four times a day as needed for nausea, ProAmatine 2.5 mg three times a day. FOLLOWUP: Patient will be followed up by his oncologist at [facility]. Main Nichols MD
== END 2018-02-17 16:13 | disposition home health service (06) | DRG 393 ==
LOC: ED 20:37 → ERH 02-16 00:17 → 3RNO 02-16 02:02
PROVIDERS: ADMIT Internal Medicine; ATTEND Internal Medicine
PROC: 3E0336Z Introduction of Nutritional Substance into Peripheral Vein, Percutaneous Approach (ICD-10-PCS; principal; 2018-02-16)
PROC: 0D20XUZ Change Feeding Device in Upper Intestinal Tract, External Approach (ICD-10-PCS; 2018-02-16)
DX: K94.22 Gastrostomy infection (principal); K83.1 Obstruction of bile duct; L03.311 Cellulitis of abdominal wall; F11.20 Opioid dependence, uncomplicated; R64 Cachexia; K56.609 Unspecified intestinal obstruction, unspecified as to partial versus complete obstruction; Z68.1 Body mass index [BMI] 19.9 or less, adult; E44.0 Moderate protein-calorie malnutrition; K94.23 Gastrostomy malfunction; D63.0 Anemia in neoplastic disease; G89.4 Chronic pain syndrome; E87.6 Hypokalemia; N18.3 Chronic kidney disease, stage 3 (moderate); Z66 Do not resuscitate; Z85.030 Personal history of malignant carcinoid tumor of large intestine; Z93.6 Other artificial openings of urinary tract status; Z90.49 Acquired absence of other specified parts of digestive tract